=== PATIENT | female | born 1985 | race Caucasian/White ===

== ENCOUNTER 2024-12-28 15:08 | Outpatient (AMB) | payer OTHER, SELFPAY ==
--- OUTSIDE RECORDS SUMMARY | 2024-12-28 15:10 | XMS_ITS ---
[place] MED NUTRITION INDIV SUBSEQ [facility] Encounter Summary Created on: December 28, 2024 NAT STEPH LEE : 1985 Sex: Female Author Name [facility] [place] [facility] [place] Organization [facility] [place] [facility] [place] Address [address] [place] [address] Care Team Providers Care Bakery Team Leader Name Role Phone ARCENIO SUTHERLAND Primary Care Provider Unavail able Selected Encounter This section includes the information on record at [place] for the Encounter. Date/Time Encounter Type Encounter Description Reason Provider Source Sep 17, 2024 01:45 PM MED NUTRITION INDIV SUBSEQ NUTRITION/DIETETI CS-INDIVIDUAL ICD-10-CM R63.6 Underweight MICHELLEIVJAGPATR ASHERA A E Encounter Template Text not used by [place] Assessments - Encounter Diagnoses This section includes the primary and secondary diagnoses documented for the Encounter. Date/Time Primary/Secondary Diagnosis Diagnosis Name Provider Source Sep 17, 2024 02:21 PM PRIMARY Underweight MICHELLEIVIERDwightMARTINEZ EHSAN A [facility] Sep 17, 2024 02:21 PM SECONDARY Anorexia nervosa, restricting type, unspecified LARIVIERMARTINEZ QuintanillaIA A [facility] Sep 17, 2024 02:21 PM SECONDARY Body mass index [BMI] 19.9 or less, adult MICHELLEIVMARTINEZ RMIA A [facility] Sep 17, 2024 02:21 PM SECONDARY Dietary counseling and surveillance PORFIRIOBALTADwightMARTINEZ [facility] Plan of Treatment: Future Appointments (+ 6 months) and Future Tests (+/- 45 days) The Plan of Treatment section includes future care activities for the patient [facility] [place] [facility] This section includes future appointments and future orders which are active, pending or scheduled. Future Appointments This section includes appointments that were scheduled to occur 6 months from the date of the Encounter, up to a maximum of 20 appointments. The data comes from all [facility]. Appointment Date/Time Appointment Type Appointme nt Facility Name Oct 06, 2024 11:30 AM AMBULATORY - PSYCHIATRY [facility] Oct 21, 2024 11:30 AM AMBULATORY - NONE [facility] Oct 27, 2024 02:30 PM AMBULATORY - PSYCHIATRY [facility] Nov 10, 2024 01:30 PM AMBULATORY - PSYCHIATRY [facility] Nov 26, 2024 09:00 AM AMBULATORY - PSYCHIATRY [facility] Dec 03, 2024 01:00 PM AMBULATORY - PSYCHIATRY [facility] Dec 09, 2024 10:00 AM AMBULATORY - PSYCHIATRY [facility] Dec 11, 2024 11:00 AM AMBULATORY - PSYCHIATRY [facility] Dec 15, 2024 01:00 PM AMBULATORY - PSYCHIATRY [facility] Dec 22, 2024 03:00 PM AMBULATORY - PSYCHIATRY [facility] Jan 01, 2025 01:30 PM AMBULATORY - PSYCHIATRY [facility] Jan 07, 2025 01:00 PM AMBULATORY - PSYCHIATRY [facility] Feb 12, 2025 10:30 AM AMBULATORY - MEDICINE [facility] Active, Pending, and Scheduled Orders This section includes a listing of several types of active, pending, and scheduled orders, including clinic medications orders, diagnostic test orders, procedure orders and consult orders; where the start date of the order is 45 days before the date of the Encounter or 45 days after the date of theEncounter. The data comes from all [facility]. Test Date/Time Test Type Test Details Facility Name Aug 10, 2024 12:00 AM Laboratory - Chemi stry Order HEPATITIS B SURFACE ANTIBODY (HBsAb)- BLOOD (SST-SERUM) [facility] Aug 10, 2024 12:00 AM Laboratory - Chemi stry Order HEPATITIS C ANTIBODY (HCV)-ARC BLOOD (MARBLED-TOP SERUM) [facility] Aug 19, 2024 02:27 PM Consult Order [facility] Cons Physics Teacher's Choice [facility] Advance Directives: All historical and current Section Date Range: From patient's date of to the date document was created. This section includes ALL of a patient's completed or amended [place] Advance and Rescinded Directives. The entries below indicate that a directive exists for the patient, but an actual copy is not included with this document. The data comes from all [facility]. Date Advance Directives Provider Source Jul 02, 2024 ADVANCE DIRECTIVE DISCUSSION REYNALDO GRIMES [facility] Apr 14, 2014 ADVANCE DIRECTIVE DISCUSSION ESTELA FLORENCE [facility] Encounter Notes: All associated encounter notes This section contains the clinical notes associated to the Encounter. Date/Time Encounter Note(s) Provider Source Sep 17, 2024 08:16 AM NUTRITION DIETETICS NOTE: LOCAL TITLE: NUTRITION PROGRESS NOTE STANDARD TITLE: NUTRITION DIETETICS NOTE DATE OF NOTE: SEP 17, 2024@08:16 ENTRY DATE: SEP 17, 2024@08:16:57 AUTHOR: ADELINE BERG COSIGNER: URGENCY: STATUS: COMPLETED [facility] (VVC) Standard Documentation VVC Clinician Resources Only: E911 (Emergency Call Relay Center): [phone] National Veterans Crisis Line - [address] [facility] Suicide Coordinator [phone], Ext. [phone]; Back-up Ext. [phone] [facility] Police, Marlo PADILLA [phone] Introduction: Visit is being conducted by [place] [employer]. [place] identified with 2 identifiers: [X] Full Name [X] Date of [ ] [place] ID Card Emergency Plan: [place] confirmed and/or provided the following information in case of emergency or technology failure. PATIENT PHONE - PHONE NUMBER [CELLULAR] - Is patient phone number correct, if not, enter below: 's phone number: farhan JOHNS [address] [place], [place], [address] 's present location and address for appointment: [address] [place], [place], [address] [place]'s emergency contact name and phone number: JESS JOHNS Mother [place] reported that location is private and safe: Yes Informed Consent: informed of the risks and benefits of Telehealth video care. has the right to refuse video services. If refuses video visit, a [id number] visit will be scheduled. verbalized consent for this video visit: Yes [place] provided consent for any other persons present for visit: N/A If yes, who and relationship to patient: Secure visit: Visit was locked for security and privacy:Yes NUTRITION ASSESSMENT Follow up Reason for Nutrition referral: Low body weighthistory of anorexia, BMI no 18 Primary Diagnosis: Underweight (R63.6) Secondary Diagnosis: Dietary Surveillance and Counseling (Z71.3) Additional Secondary Diagnosis: Anorexia nervosa, restricting type, unspecified (ICD-10-CM F50.019) Body mass index [BMI] 19.9 or less, adult (ICD-10-CM Z68.1) Date of Nutrition Referral: 07/06/24 Referred to Nutrition Clinic By: Dr. Reyes Date of Nutrition Visit: Sep Visit #: 3 Time Spent with Patient: 25 minutes Patient identified using the following two forms of ID: Date of , Patient Full Name NUTRITION ASSESSMENT: Client History Food and Drug Interactions: None Anthropometric Measurements: === Ht:64 in [162.6 cm] (10/03/2018 13:09) Wt:104.2 lb [47.26 kg] (07/08/2024 10:50) Weight History: 104.2 = 07/08/24 106 = 07/02/24 105.6 = 06/18/24 111 = 11/19/22 BMI: 17.9 IBW: 120 +/-10% Biochemical Data/Medical Tests: ====== [X] No new labs available to assess Nutrition Focused Physical Findings: Appetite: Fair Other issues/concerns: None Reported Nutrition-Focused Physical Exam ====== Unable to perform nutrition-focused physical assessment Malnutrition Screening: Unable to assess all criteria at this time Nutrition-Focused Physical Exam Summary: Based on the ASPEN/AND Malnutrition Diagnosis Guide, it was determined that the [place] DOES NOT have malnutrition. Nutrition History: Food/Nutrition Related History: Progress since last visit: Going pretty OK, still tries to bring snack if outside of home. No real changes in diet except working on goals. Prior goals: 1. ENSURE PLUS- try 4oz in afternoon and 4oz in the evening-MET, DRINKING 1 CONTAINER PER DAY, SIPS THROUGHOUT THE DAY OR BREAKS UP INTO 2 (4OZ) SERVINGS 2. Add 1/4c cottage cheese to breakfast-MET In the past 3 months, did you ever run out of food and you were not able to access more food or have the money to buy more food? No Physical Activity: Not discussed today Other subjective information: Unemployed, looking for job. Finds it easier to eat when at home due to access of food she finds works for her. She shared today that she would like to gain a little weight. NUTRITION DIAGNOSIS Nutrition Problem: ACTIVE Underweight related to inadequate energy intake as evidenced by BMI<18.5 INTERVENTION Update on Interventions Discussed at Previous Visit: Has met both goals discussed last visit for drinking 8oz ENSURE PLUS per day and adding small portion of cottage cheese to breakfast. NUTRITION SUPPLEMENT THERAPY Commercial beverage medical food supplement therapy Food and/or Nutrient Delivery: Recommend to continue Oral Nutritional Supplement as follows: Product:ENSURE PLUS (chocolate flavor per patient) Dosage:2(8oz)containers daily Provides: 700 calories, 26g protein, 102g carbohydrate, and 22g fat NUTRITION COUNSELING Nutrition counseling based on motivational interviewing strategy , Nutrition counseling based on goal setting strategy NUTRITION EDUCATION Content related to nutrition education, Education on nutrition's influence on health Nutrition Education provided on the following topics: Healthy Weight Gain Strategies , Potential Benefits of Weight Gain, Oral medical nutritional supplement recommendation (formula, dosage) Printed Nutrition educational materials provided during this encounter: None Education Narrative: Reviewed progress with meeting goals since last visit. Explored additional adjustments in eating habits to increase calories, protein, and nutrients. Reinforced how adequate nutrition influences her ability to achieve her prior stated goal to be strong and build strength. Patient identified adjustments she will work on(goals below). Barriers to Education: None Comprehension: Good Motivation: Good ========= COORDINATION OF NUTRITION CARE Follow-up with: [facility], PCP MONITORING Patient SMART goals from previous visit: 1. ENSURE PLUS- try 4oz in afternoon and 4oz in the evening-Goal achieved 2. Add 1/4c cottage cheese to breakfast-Goal achieved New Patient SMART Goals: 1. Supper: Drizzle olive oil on vegetables or mix them with cottage cheese 2. Supper: Add sour cream (her idea)or plain irish yogurt to potato 3. Lunch: Spread hummus on tortilla wrap sandwich you eat 4. Continue ENSURE PLUS at least 8oz daily FOLLOW-UP PLAN 1. Follow-up visit: Oct 2. Monitor progress towards achievement of patient's SMART goals 3. Assess comprehension and motivation based on dietary changes made 4. Monitor progress toward achievement of Clinical Outcome Goals: Weight, Labs, Oral Intake CLINICAL OUTCOME GOALS: Indicator: Weight Criteria: Underweight per BMI Goal: Weight gain of 1#/week toward IBW by follow-up Progress: No new weight, continue goal [facility] [place] [place], ASPIRATION, PURPOSE, VALUES, AND SHARED GOALS Shared Goal(s): see patient goals above (Focus area honoring MAP & Team priorities) /carole/ ADELINE BERG RD,BETZYN STAFF DIETITIAN Signed: 09/19/2024 11:10 ADELINE BERG [facility]
--- OUTSIDE RECORDS SUMMARY | 2024-12-28 15:10 | XMS_ITS | Encounter Summary ---
Author Name [facility] [place] [facility] [place] Organization [place] Address [address] [place] [address] Care Team Providers Care Golf Professional Name Role Phone ARCENIO SUTHERLAND Primary Care Provider Unavail able Selected Encounter This section includes the information on record at [place] for the Encounter. Date/Time Encounter Type Encounter Description Reason Pro vider Source Dec 25, 2024 03:12 PM Outpatient Encounter [facility]AL [facility] Encounter Template Text not used by [place] Plan of Treatment: Future Appointments (+ 6 months) and Future Tests (+/- 45 days) The Plan of Treatment section includes future care activities for the patient from all [place] treatmentfacilities. This section includes future appointments and future orders which are active, pending or scheduled. Future Appointments This section includes appointments that were scheduled to occur 6 months from the date of the Encounter, up to a maximum of 20 appointments. The data comes from all [place] treatment facilities. Appointment Date/Time Appointment Type Appointme nt Facility Name Jan 01, 2025 01:30 PM AMBULATORY - PSYCHIATRY [facility] Jan 07, 2025 01:00 PM AMBULATORY - PSYCHIATRY [facility] Feb 12, 2025 10:30 AM [facility] Active, Pending, and Scheduled Orders This section includes a listing of several types of active, pending, and scheduled orders, including clinic medications orders, diagnostic test orders, procedure orders and consult orders; where the start date of the order is 45 days before the date of the Encounter or 45 days after the date of theEncounter. The data comes from all [place] treatment facilities. Test Date/Time Test Type Test Details Facility Name Dec 11, 2024 11:[address] [facility] Assembler Liquid Center's Choice [facility] Advance Directives: All historical and current Section Date Range: From patient's date of to the date document was created. This section includes ALL of a patient's completed or amended [place] Advance and Rescinded Directives. The entries below indicate that a directive exists for the patient, but an actual copy is not included with this document. The data comes from all [place] facilities. Date Advance Directives Provider Source Jul 02, 2024 ADVANCE DIRECTIVE DISCUSSION REYNALDO GRIMES [facility] Apr 14, 2014 ADVANCE DIRECTIVE DISCUSSION ESTELA FLORENCE [facility] Encounter Notes: All associated encounter notes This section contains the clinical notes associated to the Encounter. Date/Time Encounter Note(s) Provider Source Dec 25, 2024 03:12 PM ADMINISTRATIVE NOTE: LOCAL TITLE: ADMINISTRATIVE NOTE STANDARD TITLE: ADMINISTRATIVE NOTE DATE OF NOTE: DEC 25, 2024@15:12 ENTRY DATE: DEC 25, 2024@15:12:23 AUTHOR: LEESA ROBERTS EXP COSIGNER: URGENCY: STATUS: COMPLETED called [facility] outpatient clinic and left VM. [place] stated she is feeling the most anxious she's ever felt and has a question about her lorazepam. Sent message to Mere Rowan RN via [email or web address]. Please call back at [phone], thank you. /carole/ LEESA ROBERTS ADVANCED CLOTH FINISHING RANGE TENDER Signed: 12/25/2024 15:15 Receipt Acknowledged By: * AWAITING SIGNATURE * MERE ROWAN * AWAITING SIGNATURE * IRENE CHEUNG ERICA MICHELLE [facility]
--- OUTSIDE RECORDS SUMMARY | 2024-12-28 15:10 | XMS_ITS | Encounter Summary ---
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 Date/Time Encounter Type Encounter Description Reason Provider Source Jun 29, 2024 01:00 PM [facility] ICD-10-CM F42.9 Obsessive-compul sive disorder, unspecified EDU ESPINOZA Encounter Template Text not used by [place] Assessments - Encounter Diagnoses This section includes the primary and secondary diagnoses documented for the Encounter. Date/Time Primary/Secondary Diagnosis Diagnosis Name Provider Source Jun 29, 2024 01:00 PM PRIMARY Obsessive-compuls medhat disorder, unspecified ELENA SANTO A [facility] Jun 29, 2024 01:00 PM SECONDARY Anorexia nervosa, restricting type ELENA SANTO A [facility] Jun 29, 2024 01:00 PM SECONDARY Major depressive disorder, recurrent, in remission, unsp ELENA SANTO A [facility] Plan of Treatment: Future Appointments (+ 6 months) and Future Tests (+/- 45 days) The Plan of Treatment section includes future care activities for the patient from all [place] treatmentfacilities. This section includes future appointments and future orders which are active, pending or scheduled. Future Appointments This section includes appointments that were scheduled to occur 6 months from the date of the Encounter, up to a maximum of 20 appointments. The data comes from all [place] treatment facilities. Appointment Date/Time Appointment Type Appointme nt Facility Name Jul 06, 2024 01:30 PM AM[facility]ULATORY [facility] [place] [facility] Jul 08, 2024 10:00 AM AMBUL[facility] [place] [facility] Jul 08, 2024 10:30 AM AMBULATORY - MEDICINE [facility] Jul 09, 2024 01:00 PM AMBULATORY [facility] [place] [facility] Jul 10, 2024 10:00 AM AM[facility]ULATORY [place] Jul 14, 2024 10:30 AM AMBULATORY - PSYCHIATRY [facility] Jul 17, 2024 09:00 AM AMBULATORY [facility] [place] [facility] Jul 17, 2024 10:00 AM AM[facility]UL[facility]ORY [place] Jul 23, 2024 09:30 AM AM[facility]UL[facility] [place] [facility] Jul 24, 2024 10:00 AM AMBULATORY [place] Jul 24, 2024 10:45 AM [facility] Jul 27, 2024 02:00 PM AM[facility]UL[facility] [place] [facility] Aug 05, 2024 01:00 PM AMBULATORY [facility] [place] [facility] Aug 07, 2024 10:00 AM AM[facility]UL[facility]ORY [place] [facility] [place] Aug 11, 2024 07:30 PM AMBULATORY [facility] [place] [facility] Aug 12, 2024 01:00 PM AMBULATORY [facility] [place] [facility] Aug 14, 2024 10:00 AM AM[facility]ULATORY [place] Aug 19, 2024 01:00 PM AMBULATORY [facility] [place] [facility] Aug 20, 2024 09:15 AM AMBULATORY - NONE [facility] [place] [facility] Aug 21, 2024 03:00 PM AMBULATORY [facility]ICINE [facility] [place] [facility] Active, Pending, and Scheduled Orders This section includes a listing of several types of active, pending, and scheduled orders, including clinic medications orders, diagnostic test orders, procedure orders and consult orders; where the start date of the order is 45 days before the date of the Encounter or 45 days after the date of theEncounter. The data comes from all [place] treatment facilities. Test Date/Time Test Type Test Details Facility Name Aug 10, 2024 12:00 AM Laboratory - Chemi [employer] Order HEPATITIS B SURFACE ANTIBODY (HBsAb)- BLOOD (SST-SERUM) [facility] Aug 10, 2024 12:00 AM Laboratory - Chemi strEmissary Order HEPATITIS C ANTIBODY (HCV)-[facility] BLOOD (MARBLED-TOP SERUM) [facility] Lab Results: +/- 30 days of the encounter This section includes the Chemistry and Hematology Lab Results on record with [place] for the patient. Radiology Reports and Pathology Reports are provided separately, in subsequent sections. Lab Results This section contains the Chemistry/Hematology Results that were resulted 30 days before or 30 daysafter the date of the Encounter. Date/Time Source Result Type Result - Unit Interpretation Reference Range Comment Jul 03, 2024 11:00 AM [place] [facility] [employer] [facility] COVID-19 SCREENING PANEL (CEPHEID) Specimen Type: NASOPHARYNX Comment: This test is authorized for emergency use only. False negative results may occur if virus is present at levels below the analytical limit of detection.Neg ative results do not preclude SARS-CoV-2 infection and should not be used as the sole basis for treatment or other patient management decisions.Cep heid FLUVID: HCPs: https://www. da.gov/media/ 524725/downlo ad. Patients: https://www.f da.gov/media/ 442854/downlo ad Ordering Provider: DELMA SHAH Report Released Date/Time: Jul 03, 2024 12:29 PM Reporting Lab: [facility] [address] [facility] [address] Performing Lab: [facility] [address] [facility] [address] COVID-19 SCR (CEPHEID) NEGATIVE Negative Jun 22, 2024 08:19 AM [place] [facility]N [employer] [facility] HCG QUAL, URINE Specimen Type: URINE No comment entered. Ordering Provider: MIGUELANGEL MAHONEY Report Released Date/Time: Jun 22, 2024 08:18 AM Reporting Lab: [address] [address] Performing Lab: [address] [address] HCG QUAL, URINE NEGATIVE NEGATIVE Jun 22, 2024 07:03 AM [facility] HEMOGLOBIN A1C PANEL Specimen Type: BLOOD Comment: Values obtained from A1C measurements can vary. For atypical A1C assays, a reported value of 7.0 could actually be between 6.72 and 7.28 if measured by a reference method. A reported value of 9.0 could actually be between 8.73 and 9.27. Ref: http://www.ng sp.org/CAPdat a.asp Ordering Provider: MIGUELANGEL MAHONEY Report Released Date/Time: Jun 19, 2024 11:44 AM Reporting Lab: [address] [address] Performing Lab: [address] [address] HEMOGLOBIN A1C 5.0 4.0-5.6 Jun 22, 2024 07:03 AM [facility] LIPID PANEL FASTING Specimen Type: SERUM No comment entered. Ordering Provider: MIGUELANGEL MAHONEY Report Released Date/Time: Jun 19, 2024 11:44 AM Reporting Lab: [address] [address] Performing Lab: [address] [address] CHOLESTEROL 218 mg/dL H TRIGLYCERIDE 81 mg/dL 0-150 LDL calculated 142 mg/dL H 0-129 CHOL/HDL 3.6 HDL CHOLESTEROL 60 mg/dL 40-60 Jun 22, 2024 07:00 AM [facility] CALCIUM Specimen Type: SERUM No comment entered. Ordering Provider: MIGUELANGEL MAHONEY Report Released Date/Time: Jun 22, 2024 08:24 AM Reporting Lab: [address] [address] Performing Lab: [facility] [address] [facility] [address] CALCIUM 9.6 mg/dL 8.5-10.2 Jun 22, 2024 07:00 AM [facility] BASIC METABOLIC PANEL (non-fasting) Specimen Type: SERUM No comment entered. Ordering Provider: MIGUELANGEL MAHONEY Report Released Date/Time: Jun 22, 2024 02:03 PM Reporting Lab: [facility] [address] [facility] [address] Performing Lab: [facility] [address] [address] UREA NITROGEN 19 mg/dL 7-25 GLUCOSE 109 mg/dL H 65-100 SODIUM 139 mmol/L 135-145 POTASSIUM 4.5 mmol/L 3.5-5.0 CHLORIDE 104 mmol/L 100-110 CO2 24 meq/L 20-30 CREATININE, Serum 0.89 mg/dL 0.50-1.40 eGFR(CKD-EPI 2020) 85 mL/min >60 Jun 18, 2024 03:08 PM [facility] COVID-19 MONITOR PANEL (CEPHEID) Specimen Type: NASOPHARYNX Comment: This test is authorized for emergency use only. False negative results may occur if virus is present at levels below the analytical limit of detection.Neg ative results do not preclude SARS-CoV-2 infection and should not be used as the sole basis for treatment or other patient management decisions.Cep heid FLUVID: HCPs: https://www. da.gov/media/ 913821/downlo ad. Patients: https://www. da.gov/media/ 907461/downlo ad Ordering Provider: DELMA SHAH Report Released Date/Time: Jun 18, 2024 03:05 PM Reporting Lab: [facility] [address] [facility] [address] Performing Lab: [address] [address] COVID-19 CITLALLI (CEPHEID) NEGATIVE Negative Jun 18, 2024 02:41 PM [facility] ETHANOL Specimen Type: PLASMA No comment entered. Ordering Provider: DELMA SHAH Report Released Date/Time: Jun 18, 2024 02:30 PM Reporting Lab: [address] [address] Performing Lab: [address] [address] ETHANOL <10 mg/dL Jun 18, 2024 02:41 PM [facility] BASIC METABOLIC PANEL (non-fasting) Specimen Type: SERUM No comment entered. Ordering Provider: DELMA SHAH Report Released Date/Time: Jun 18, 2024 02:30 PM Reporting Lab: [address] [address] Performing Lab: [address] [address] UREA NITROGEN 18 mg/dL 7-25 GLUCOSE 110 mg/dL H 65-100 SODIUM 137 mmol/L 135-145 POTASSIUM 3.9 mmol/L 3.5-5.0 CHLORIDE 103 mmol/L 100-110 CO2 29 meq/L 20-30 CREATININE, Serum 0.84 mg/dL 0.50-1.40 eGFR(CKD-EPI 2020) >90 mL/min >60 Jun 18, 2024 02:41 PM [facility] LIVER FUNCTION Specimen Type: SERUM No comment entered. Ordering Provider: DELMA SHAH Report Released Date/Time: Jun 18, 2024 02:30 PM Reporting Lab: [address] [address] Performing Lab: [address] [address] PROTEIN,TOTAL 7.1 g/dL 6.0-8.3 ALBUMIN 4.2 g/dL 3.5-5.0 ALKALINE PHOSPHATASE 46 U/L 40-150 AST 10 U/L 5-34 ALT 11 U/L BILIRUBIN, TOTAL 0.3 mg/dL 0.2-1.2 Jun 18, 2024 02:41 PM [facility] CBC AND DIFF (AUTO) Specimen Type: BLOOD No comment entered. Ordering Provider: DELMA SHAH Report Released Date/Time: Jun 18, 2024 02:30 PM Reporting Lab: [facility] [address] [facility] [address] Performing Lab: [facility] [address] [facility] [address] WBC 7.32 10*3/uL 4.50-11.00 RBC 4.08 10*6/uL 3.93-5.16 HGB 13.3 g/dL 12-15.2 HCT 39.1 36.6-45.6 MCV 95.8 fL 82-99 MCHC 34.0 g/dL 30.8-35.1 PLT 296 10*3/uL 140-360 RDW-CV 11.8 L 12.0-16.0 MONO, ABS 0.36 10*3/uL 0.30-1.10 MCH 32.6 pg 26.2-32.6 NEUT % 69.8 43.7-75.8 LYMPH % 24.0 14.0-42.3 MONO % 4.9 L 5.1-13.7 EOS % 0.4 0.4-6.8 BASO % 0.8 0.1-2.0 NEUT, ABS 5.10 10*3/uL 2.20-7.60 LYMPH, ABS 1.76 10*3/uL 1.00-3.20 EOS, ABS 0.03 10*3/uL 0.03-0.44 BASO, ABS 0.06 10*3/uL 0.01-0.13 IMMATURE GRAN % 0.1 0.0-0.7 IMMATURE GRAN, ABS 0.01 10*3/uL 0.00-0.06 NRBC % 0.0 0.0-0.0 NRBC, ABS 0.00 10*3/uL 0.00-0.00 Jun 18, 2024 02:41 PM [facility] DRUGS OF ABUSE Specimen Type: URINE Comment: Urine with Cr <5 is diluted or substituted. Cr between 5 and 20 is very dilute. Urine with SG of 1.001 or less is diluted or substituted. SG of 1.003 or less is very dilute. Urine with a pH <3 or >11 has been adulterated and is unsuitable for testing by our current method. Urine with pH between 3 and 4 OR 10 and 11 may have been adulterated. Ordering Provider: DELMA SHAH Report Released Date/Time: Jun 18, 2024 02:30 PM Reporting Lab: [facility] [address] [facility] [address] Performing Lab: [address] [address] AMPHETAMINES SCREEN NONE-DETECTED None-Detec domo, Cutoff = 1000 ng/mL BENZODIAZEPINES SCREEN NONE-DETECTED None-Detec domo, Cutoff = 200 ng/mL COCAINE SCREEN NONE-DETECTED N one-Detec domo,Cutoff = 300 ng/mL OPIATES SCREEN NONE-DETECTED N one-Detec domo, Cutoff = 300 ng/mL CANNABINOIDS SCREEN NONE-DETECTED None-Detec domo,Cutoff = 50 ng/mL BARBITURATES SCREEN NONE-DETECTED None-Detec domo,Cutoff = 200 ng/mL OXYCODONE SCREEN NONE-DETECTED None-Detec domo, Cutoff = 100 ng/mL BUPRENORPHINE (URINE) NONE-DETECTED None Detected, Cutoff = 10.0 ng/mL ALCOHOL, ETHYL URINE NONE-DETECTED mg/dL NONE-DETEC ODMO, cutoff = 10 mg/dL FENTANYL SCREEN NONE-DETECTE D ng/mL Negative: Cutoff = 1.00 ng/mL PH, DONAVAN 6.8 [pH] 4-10 CREATININE, DONAVAN 92.76 mg/dL >20 SP.GRAVITY, DONAVAN 1.019 1.00 3-1.02 0 Jun 18, 2024 02:41 PM [facility] FOLATE (WROX) Specimen Type: SERUM Comment: Specimen Icteric Ordering Provider: MIGUELANGEL MAHONEY Report Released Date/Time: Jun 19, 2024 12:16 PM Reporting Lab: [facility] [address] [facility] [address] Performing Lab: [facility] [address] [facility] [address] FOLATE (WROX) 15.03 ng/mL >5.2 Jun 18, 2024 02:41 PM [facility] VITAMIN B12 Specimen Type: SERUM No comment entered. Ordering Provider: MIGUELANGEL MAHONEY Report Released Date/Time: Jun 19, 2024 12:16 PM Reporting Lab: [facility] [address] [facility] [address] Performing Lab: [facility] [address] [address] VITAMIN B12 1281 pg/mL H 200-900 Jun 18, 2024 02:41 PM [facility] TSH Specimen Type: SERUM No comment entered. Ordering Provider: MIGUELANGEL MAHONEY Report Released Date/Time: Jun 19, 2024 12:16 PM Reporting Lab: [address] [address] Performing Lab: [facility] [address] [address] TSH 3.52 u[IU]/mL 0.35-5.00 Jun 18, 2024 02:41 PM [facility] VITAMIN D (25-OH) Specimen Type: SERUM No comment entered. Ordering Provider: MIGUELANGEL MAHONEY Report Released Date/Time: Jun 19, 2024 12:16 PM Reporting Lab: [facility] [address] [address] Performing Lab: [facility] [address] [address] VITAMIN D (25-OH) 52 ng/mL H 20-50 Vital Signs: All taken on the encounter date This section contains inpatient and outpatient Vital Signs collected on the date of the Encounter. Date/Time Temperature Pulse Blood Pressure Respiratory Rate SP02 Pain Height Weight Body Mass Index Source Jun 29, 2024 07:46 PM 97.2 70 103/65 16 100 [facility] [place] [facility] Jun 29, 2024 02:29 PM 97.1 97 99/69 16 99 [facility] [place] [facility] Jun 29, 2024 06:34 AM 97.9 [place] [facility] [facility] Advance Directives: All historical and current Section Date Range: From patient's date of to the date document was created. This section includes ALL of a patient's completed or amended [place] Advance and Rescinded Directives. The entries below indicate that a directive exists for the patient, but an actual copy is not included with this document. The data comes from all [place] facilities. Date Advance Directives Provider Source Jul 02, 2024 ADVANCE DIRECTIVE DISCUSSION REYNALDO GRIMES [place] [facility] [place] [facility] Apr 14, 2014 ADVANCE DIRECTIVE DISCUSSION EST[facility]A [facility]
--- OUTSIDE RECORDS SUMMARY | 2024-12-28 15:10 | XMS_ITS | Encounter Summary ---
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 Date/Time Encounter Type Encounter Description Reason Provider Source Nov 10, 2024 01:30 PM OFFICE O/P EST LOW 20 MIN [facility] - IND ICD-10-CM F33.40 Major depressive disorder, recurrent, in remission, IRENE Gupta Dwight Encounter Template Text not used by [place] Assessments - Encounter Diagnoses This section includes the primary and secondary diagnoses documented for the Encounter. Date/Time Primary/Secondary Diagnosis Diagnosis Name Provider Source Nov 10, 2024 01:54 PM PRIMARY Major depressive disorder, recurrent, in remission, IRENE Gupta Nov 10, 2024 01:54 PM SECONDARY Anxiety disorder, unspecified IRENE CHEUNG Nov 10, 2024 01:54 PM SECONDARY Generalized anxiety disorder IRENE CHEUNG Plan of Treatment: Future Appointments (+ 6 months) and Future Tests (+/- 45 days) The Plan of Treatment section includes future care activities for the patient from all [facility] treatmentfacilities. This section includes future appointments and future orders which are active, pending or scheduled. Future Appointments This section includes appointments that were scheduled to occur 6 months from the date of the Encounter, up to a maximum of 20 appointments. The data comes from all [place] treatment facilities. Appointment Date/Time Appointment Type Appointme nt Facility Name Nov 26, 2024 09:00 AM AMBULATORY - PSYCHIATRY [facility] Dec 03, 2024 01:[address] [facility] Dec 09, 2024 10:00 AM AMBULATORY PSYCHIATRY [facility] Dec 10, 2024 03:00 PM AMBULATORY PSYCHIATRY [facility] Social History: Smoking Status (Most current) and Tobacco Use (All prior to encounter date) This section includes the most current, and the historical, smoking and tobacco- related health factors from the [place] facility where the Encounter took place. Current Smoking Status This section includes the most current smoking, or tobacco-related health factor, from the [place] facility where the Encounter took place. Date/Time Current Smoking Status Comment [facility] Feb 07, 2024 04:00 PM [place]-TOBACCO NEVER USED [facility] Tobacco Use History This section includes a history of the smoking, or tobacco-related health factors, that were collected on or before the date of the Encounter. The data comes from the [place] facility where the Encounter took place. Date/Time Smoking Status/Tobacco Use Comment F acility Nov 19, 2022 01:30 PM [place]-TOBACCO NEVER USED [facility] Oct 03, 2021 10:00 AM [place]-TOBACCO NEVER USED [facility] Nov 01, 2020 11:00 AM [place]-TOBACCO NEVER USED [facility] Oct 03, 2018 01:10 PM [place]-TOBACCO NEVER USED [facility] Apr 19, 2017 02:22 PM LIFETIME NON-TOBACCO USER [facility] Jan 03, 2016 02:36 PM LIFETIME NON-TOBACCO USER [facility] Feb 10, 2013 03:39 PM LIFETIME NON-TOBACCO USER [facility] Advance Directives: All historical and current Section Date Range: From patient's date of to the date document was created. This section includes ALL of a patient's completed or amended [place] Advance and Rescinded Directives. The entries below indicate that a directive exists for the patient, but an actual copy is not included with this document. The data comes from all [place] facilities. Date Advance Directives Provider Source Jul 02, 2024 ADVANCE DIRECTIVE DISCUSSION REYNALDO GRIMES [facility] Apr 14, 2014 ADVANCE DIRECTIVE DISCUSSION ESTELA FLORENCE [facility] Encounter Notes: All associated encounter notes This section contains the clinical notes associated to the Encounter. Date/Time Encounter Note(s) Provider Source Nov 10, 2024 01:31 PM TELEHEALTH NOTE: LOCAL TITLE: [facility] VIDEO CONNECT PSYCHIATRIST NOTE STANDARD TITLE: TELEHEALTH NOTE DATE OF NOTE: NOV 10, 2024@13:31 ENTRY DATE: NOV 10, 2024@13:31:57 AUTHOR: IRENE CHEUNG COSIGNER: URGENCY: STATUS: COMPLETED [facility] Video Connect (VVC) Standard Documentation VVC Clinician Resources Only: E911 (Emergency Call Relay Center): [phone] [facility] Crisis Line - 988 then press #1. [facility] Suicide Coordinator [phone], Ext. [phone]; Back-up Ext. [phone] [place] Police, Marlo PADILLA [phone] Introduction: Visit is being conducted by [place] [employer]. identified with 2 identifiers: [X] Full Name [X] Date of [ ] [place] ID Card Emergency Plan: confirmed and/or provided the following information in case of emergency or technology failure. PATIENT PHONE - PHONE NUMBER [CELLULAR] - Is patient phone number correct, if not, enter below: 's phone number: STEPH JOHNS [address], [place], [address] [place]'s present location and address for appointment: same as above 's emergency contact name and phone number: unchanged reported that location is private and safe: Yes Informed Consent: informed of the risks and benefits of Telehealth video care. [place] has the right to refuse video services. If refuses video visit, a [id number] visit will be scheduled. [place] verbalized consent for this video visit: Yes provided consent for any other persons present for visit: N/A If yes, who and relationship to patient: Secure visit: Visit was locked for security and privacy:Yes CHART REVIEW: Previously treated by Dr. Hackett, initial evaluation [age] notin-year-old [employer] who was medically discharged from in 2 years and 11 months. She presented well dressed and groomed today for her appointment. She was polite, collaborator and engaged. She says that I am still recovering from my condition and well coming new opportunities to cope She elaborates on her severe level of anxiety which she experienced as a child because her father was alcoholic, with anger issues and verbally abusive. Her anxiety further worsened when she was in and discussed the time when she started restricting her food intake and was exercising excessively. She was sent to an inpatient residential treatment for eating disorders while she was in the . She was there for few months and gained insight and coping for it. She says that she was not ready for discharge when the wanted her back so she left the program but ultimately ended up discharging from for medical reasons. She has been on venlafaxine for many years and has not seen a psychiatrist. She says that now her weight and basal metabolic index are close to normal but towards the lower end. She says that she no longer restricts and exercises 5 days a week. She does not weigh herself. She describes her mood for past 2 weeks to be anxious and melancholy her sleep has been reasonable where she sleeps about 8 hours a night her appetite, energy levels, concentrations are described as decent and she denies any SI/HI. She says that occasionally she may have thoughts that why she is here, But they are passive and resolved by distraction. She has no prior suicide attempts. She denies any guns or weapons at home. She denies any illicit drug or alcohol use. She has been drinking up to 10 cups of coffee per day. 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 Return denies any prior incidence of psychosis, beto or hypomania, symptoms of any phobia. She denied any screening questions of PTSD. She still has ruminative thoughts about her past especially her father's behavior that affected the family but denies any compulsive behaviors. SUBSTANCE ABUSE: Caffeine: 6 to 8 cups a day Tobacco: Never Cocaine: Denies Opioid: Denies Alcohol: Drinks twice a year, no more than 1-2 drinks on drinking days Cannabis: None Past Psych History: - Prior Diagnosis: Generalized anxiety disorder, history of anorexia currently stable - Current Psychiatrist: Long back: - Prior Hospitalizations: Denies - Prior Medications: Venlafaxine, lorazepam, zolpidem - Prior Suicide Attempts: Denies -Guns and Weapons at home: Denies Family Psychiatric History: - Psych: Anxiety runs in the family, also bulimia. - Substance USe: Father was alcoholic - Suicide: Denies TREATMENT PLAN/ DISCUSSION/ RATIONALE: DIAGNOSIS: 36-year-old force who was discharged from medically because of her eating disorder and severe anxiety. has received treatment at the residential eating disorder treatment program and has been on venlafaxine for a very long time. The goal of this assessment was to reevaluate her medicines. tried alpha stim with significant improvement in her anxiety and today she presents ambivalent about her goals with the medicines. She feels that if she is able to manage her anxiety better she would want to gradually taper off of venlafaxine. She agrees to give alpha stim more time. Plan: Generalized anxiety disorder: Continue venlafaxine at same dose. Continue to use alpha stim LAST SEEN BY DR HACKETT SEPT2021, noting: She tells the specification writer that she has been seeing a therapist couple times a month who suggested to speak to her father about the emotional neglect that she experienced as a child. She says that she had a little dip in her moods and anxiety when she spoke to him. He is in complete denial and does not want to work with her in therapy. This was little upsetting to the [place]. She says that she had few nightmares for couple days but those have resolved. She finds the medications and alpha stim very useful. She describes her moods, sleep, motivation, energy levels and concentrations as reasonable. She is continues to function adequately. She clearly denies any SI/HI. She denies any illicit drug or alcohol use? Plan: Continue venlafaxine without any changes PRESENTATION AT TIME OF INITIAL VISIT WITH MYSELF 10/25/23: reports the [place] wanted me to continue to seeing someone periodically b/c I'm on a certain medication . She just moved to [place] March 1st (been traveling back and forth to [place] but just got a house there). 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 Uses alpha stim daily (occasionally BID), sees a therapist every week (in [place]) remotely. Continues on Effexor I know its helped with anxiety, after I started it I felt the anxiety ease some, but I've continued to have issues with anxiety . REVIEW OF SYSTEMS MENTAL HEALTH: SLEEP: good MOOD: depression occurs around once a year a couple to several days , earlier this year after interpersonal rift for several weeks still functioned but struggled as crying interrupted her work day, sometimes took the day moment to moment PTSD symptoms: difficulties with my father, neglect on his part, tendencies of him to be angry. I picture him and my heart hurts , not flashbacks, sometimes dreams occasionally awakens screaming when home in [place] ANXIETY: I've felt at peace recently , may occur typically a couple of times/week minor to major depending on what's going on , for a while was daily during a period of conflict my mind feels raw, out of control, its in my head (not physical), a pain raw and vulnerable, whirring thoughts, ruminating, what could be happening (a situation) I fixate on it ANGER/IRRITABILITY/AGGRESSION: Denies SUBSTANCE USE: Alcohol: rare Illegal/non-prescribed drugs: denies TOBACCO: Non-smoker EATING: I'm much better . Current weight 112 lbs (not changed), ht 5'3 Restriction: very selective in what I eat , not caloric intake Weight/ image focus: a little bit Binge/purge behavior: denies, no hx Exercise: 1 hour daily BETO/HYPOMANIA: None evident PSYCHOTIC FEATURES: at my sickest, dark one, a flash of self-harm, it felt very vivid. One time it was driving my car off the road, a few times it was slamming my head against a mirror not in several years (at least 9 years) Suicidal Thoughts/Intent/plan: during most recent depressive episode states this time I didn't want to be here anymore, I was just going through the motions and all I wanted to do was be with God , denies having a plan or intent that would be selfish and painful . History: several years ago thoughts of running car off the road weighed strongly on my mind but I couldn't do that . RFL: you have to be here b/c you're alive, you go through motions. I don't have a choice in the matter. I have a moral issue with suicide? here for people and community, and I have a strong kevin and spirituality at the center of my life . Medical ROS: no c/o; not sexually active/ no BC CURRENT PSYCH meds: PHILLY 150mg daily ADVERSE EFFECTS: none reported INITIAL ASSESSMENT/ DIAGNOSIS AND RECOMMENDATIONS: Tatiana presents with a history of recurrent depression, possible PTSD, 50%SC for anxiety disorder though does not seem to meet criteria for VENKAT, and an eating disorder (30%SC for anorexia nervosa, does not currently meet criteria). She experiences some improvement with Effexor, though continues to experience both depression with SI and anxiety despite being on 150mg daily. I encouraged her to increase the dose to 225mg daily which she agreed to. Asked to monitor her BP on this. I noted 01/15/24: Returned call from Tatiana, reports the dose increase helped a little, but its too much. I'm crying everyday, some days its very intense , under work stress. Talks to a therapist weekly. Feeling isolated, talking to man in [facility] dreading it and i'm afraid, but i'm lonely . C/o I want to be with God but denies plan to end her life but at times hopes something would happen to her to end her life. When i suggest she is not ready for a new relationship, she states she feels relief. Her parents visited recently but at the end father had an episode, anger. He's not the best father , so doesnt feel comfortable going back home now. Misses her mother and talks to her frequently. Her closest friend there is less available as she goes through her own troubles. She is able to work and function daily. PLAN: will add low dose abilify and suggested she talk to her therapist about options for increased therapy including IOP. Not at acute risk of self harm. Affect improved by end of call, responded well to support. NEXT VISIT: increased PHILLY to 300mg daily and abilify to 5mg daily. NEXT VISIT NOTED: reports I'm preparing the move back home to [place], I need to be with them right now, for my peace of mind, and my father just had a 2nd bout with cancer and my mother is having MRIs, tests are inconclusive but she is cancer free. My job was just miserable. I want to leave right away. I've packed up most of the house. States I know the medicine is making a difference. There's a little more stability. NOTED AT LAST OP VISIT: Tatiana presents with her mom. She reports her recent state has been similar but worse. I feel like an anxious mess. I'm shaking. I've been talking to my therapist weekly. Last weekend he suggested I talk to you about reevaluating my medication or a Partial Hospitalization . Mother states Tatiana was calling her frequently from [place], and since being home doesn't know where she was worse, there or here. States there's nothing that will make her joyful at all. She barely enters conversation at all. She sits and rocks or is pacing. Positive things don't stick. Its almost like she was before she was on medication years ago . States she thinks the abilify might have made a difference . Reports she feels terrified of going into a hospital setting b/c of the need to be in the hospital. The downtime on a unit when I'm with others who might be worse off. Will I lose weight . She was admitted to the hospital Jun 18, Noted by Dr. Barrera 07/02: Currently on venlafaxine 300 mg daily, mirtazapine 15 mg at bedtime, brexpiprazole 0.5 mg daily, lorazepam as needed which she uses once daily. The patient is comfortable on these medications and denies adverse effects. The patient states that she slept well without nightmares last night. She still feels fatigued but is not sedated. She remains with anxiety about discharge and ambivalent feelings concerning leaving the hospital. She worries about going home and being confronted by the necessity of pursuing employment, at the same time feels reluctant to stay in the hospital. She feels that she is worried about facing the future. She is trying to minimize Ativan use. She has residual depressed mood, although not to the severity seen earlier in her admission and without the pronounced diurnal variation initially observed. She is not helpless or hopeless although at times she does not feel equal to the developmental tasks of autonomy. Discussed with the patient that not everything needs to be done immediately, that resources will be available to help her, that returning to the world of work may be a more gradual process. Have discussed balancing her fear of more negative outcomes with acknowledgment of the at least equally valid possibility of positive events. The patient denies passive or active SI. She denies HI/intent. She is without euphoria, irritability, pressured speech, flight of ideas, grandiosity or expansiveness. The patient denies AH or VH and does not respond to internal stimuli, is without formed PI or disorganization of thought processes. She does not complain of intrusive memories, does not complain of reexperiencing. The patient's shakes and restlessness have remitted off aripiprazole. She is without rest tremor, akathisia, observable dyskinesias. She is alert, oriented in 3 spheres, attentive and not distractible, recent memory is fair. Speech is soft but clear and gait is stable. Patient commits to safety out of hospital and in the community--denies passive or active SI or HI/intent. Patient commits firmly to the use of Crisis resources, including V[facility]/ED should she feel in any future danger of harming self or others. Crisis resources will be supplied to patient in discharge materials. NEXT VISIT NOTED: Tatiana remains quite anxious and depressed. She appears less labile to me but feels no better. She is tolerating current medication. She no longer feels Effexor is of benefit and wants to discuss alternatives. We agree to plan: 1. Increase brexpiprazole to 2mg; 2. increase mirtazapine to 45mg QHS. 3. Begin to cut down PHILLY to 225mg daily in consideration of cross-taper to a different SSRI. NEXT VISIT NOTED: I again reviewed treatments available for TRD including: ECT, TMS and spravato. She is not ready to pursue these but is willing to cross-taper off PHILLY to an SSRI. Will decrease former to 150mg daily and start on Lexapro 5mg daily to start. NEXT VISIT NOTED: Still doing IOP. We agree to increase Lexapro to 10mg daily and reduce PHILLY to 75mg daily, continue mirtazapine and brexpiprazole. Encouraged to continue in IOP. NOTED AT LAST OP VISIT: [place] reports same worries, different day. I think my hands are shaking significantly less. I'm going in the direction of a FT job but I'm afraid. The idea of sustaining myself scares me. I still have a home in [place]. I'm still working PT, I've been meeting with the [facility]. I took an assessment to gauge what kinds of employment would be good for me. 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 House: had a showing. Mother adds she still appears tired a lot, that she lacks interests in things, still paces a lot, does not laugh or show emotion, speaks slowly. She has stopped crying there was a ton before . Helps mother cooking. Is eating well. A/P: [place] is showing some signs of improvement since last visit with cross taper to Lexapro and coming off brexpiprazole. I am suggesting she stop PHILLY at this point; offered to either increase Lexapro vs adding Wellbutrin. For now we agree to stop PHILLY, increase Lexapro to 25mg then to 30mg daily if tolerated, continue mirtazapine for now (but may wean off this due to possible oversedation). PRESENTING SYMPTOMS AND CONDITION ON TODAY'S VISIT: reports I'm having a stressful time. My house hasn't sold. I'm moving in the direction of a FT job. I'm meeting with [facility]. They did an assessment of me? I'm scared of her ability to manage job responsibilities. Current job going OK. She feels her parents are frustrated with her. Seeing her therapist now twice per month. REVIEW OF SYSTEMS MENTAL HEALTH: SLEEP: + NATHALIE, gets at least 7 hours MOOD: I'm not very sad PTSD symptoms: not active ANXIETY: I'm very anxious ANGER/IRRITABILITY/AGGRESSION: Denies SUBSTANCE USE: Alcohol: rare Illegal/non-prescribed drugs: denies TOBACCO: Non-smoker EATING: I have a decent handle. I work out every day . Wt stable BETO/HYPOMANIA: None evident PSYCHOTIC FEATURES: denied Suicidal Thoughts/Intent/plan: Not active. I wish all this would come to an end . CURRENT PSYCH meds: mirtazapine 45 mg at bedtime, lorazepam 0.5mg daily as needed, Lexapro 30mg daily ADVERSE EFFECTS: ? hand tremor MED REC: no change VS: 07/02/2024 84 17 104/70 WT 106lbs (down from 111 lbs in Nov 2023) MENTAL STATUS EXAMINATION - Appearance and behavior: Appears stated age, appropriately groomed and dressed, NOT rocking back and forth today but c/o hand tremor - Speech and language: coherent - Mood: as noted above - Affect: anxious/tense, less constricted, no tears - Thought Process: Linear, logical; no loosening of associations or FOI - Thought Content: without delusions (paranoia, thought broadcasting, thought withdrawal, thought insertion, ideas of reference) - Perceptions: Denies auditory and visual hallucinations - IMPULSES/HARM: - Wishes to be ? See above - Thoughts/plan/intention of killing self? no - Homicidal ideation, plan, intent, actions: denied - Cognition: No noted impairment - Insight: no impairment evident - Judgment: no impairment evident NARRATIVE SUMMARY OF CURRENT CONDITION AND OVERALL PROGRESS TOWARD TREATMENT GOALS: appears less anxious and depressed than in the past, tolerated cross taper from PHILLY to Lexapro. Remains anxious but can be engaged in CBT concepts. No changes to suggest at this point. i. Severity of Illness: ()none ( )mild ( x )moderately ill ()severely ill ()very severely ill ii. Global Improvement: ()very much ()much ( x )min ( )none ()min worse ( )much worse ()very much worse iii. RISK ASSESSEMENT: currently (x ) no evidence of acute risk (x) elevated based on: feeling hopeless and defeated, thoughts to OD are rejected, has strong prohibitions (consequences to family, buddhist) () acute risk noted but agrees to Safety Plan () acute risk noted, emergency plan implemented INTERVENTION: -THERAPY: at least 16 minutes spend in individual counseling discussing psychological issues, coping strategies, current stressors -SOMATIC: reviewed and discussed medication options: risks, side effects alternatives understood and accepted; answered patient questions PLAN OF CARE/ RECOMMENDATIONS: 1. Recommended and discussed the following medications changes: as noted above 2. Tests or specialist referrals recommended, or old records desired, if any: none 3. Medical Necessity/ Psychiatric treatment goals for future visits: ( x) Sustain improvement ( x) Gain improvement toward remission ( x) Prevent decline in functioning ( x) Prevent hospitalization 4. Considered referral to psychotherapy program for any counseling needs: n/a 5. Considered referral to inpatient/IOP care: n/a 6. Considered referral nutrition program for any lifestyle/dietary needs: n/a 7. Follow-up plans; patient is scheduled for a follow-up appointment with myself in: 4 weeks, sooner if possible Additional Follow-Up instructions: 1. Reinforced: If urgent treatment is needed, call [phone] or go to the nearest Emergency Room 2. To schedule or change an appointment, inquire about medication refills, etc: call office number during normal office hours Diagnoses: Recurrent major depression (SCT [id number]) - Major depressive disorder, recurrent, in remission, unspecified (ICD-10-CM F33.40) (Primary) Anxiety (SCT [id number]) - Anxiety disorder, unspecified (ICD-10-CM F41.9) Generalized anxiety disorder (SCT [id number]) - Generalized anxiety disorder (ICD-10-CM F41.1) /carole/ IRENE CHEUNG M.D. Signed: 11/10/2024 13:57 IRENE CHEUNG
--- OUTSIDE RECORDS SUMMARY | 2024-12-28 15:10 | XMS_ITS | Encounter Summary ---
Author Name [facility] [place] [facility] [place] Address [address] [place] [address] Care Team Providers Care Grain Mixer Name Role Phone ARCENIO SUTHERLAND Primary Care Provider Unavail able Selected Encounter This section includes the information on record at [place] for the Encounter. Date/Time Encounter Type Encounter Description Reason Provider Source Oct 06, 2024 11:30 AM OFFICE O/P EST LOW 20 [facility] - IND ICD-10-CM F33.40 Major depressive disorder, recurrent, in remission, charleyp IRENE CHEUNG Dwight Encounter Template Text not used by [place] Assessments - Encounter Diagnoses This section includes the primary and secondary diagnoses documented for the Encounter. Date/Time Primary/Secondary Diagnosis Diagnosis Name Provider Source Oct 06, 2024 11:55 AM PRIMARY Major depressive disorder, recurrent, in remission, IRENE Gupta Oct 06, 2024 11:55 AM SECONDARY Anxiety disorder, unspecified IRENE CHEUNG Oct 06, 2024 11:55 AM SECONDARY Generalized anxiety disorder IRENE CHEUNG Plan [...] 20 appointments. The data comes from all [place] treatment facilities. Appointment Date/Time Appointment Type Appointme nt Facility Name Oct 21, 2024 11:30 AM AMBULATORY - NONE [facility] [place] [facility] Oct 27, 2024 02:30 PM AMBULATORY - PS[facility]CHIATRY [facility] [place] [facility] Nov 10, 2024 01:30 PM AMBULATORY - PS[facility]IATRY [facility] [place] [facility] Nov 26, 2024 09:00 AM AMBULATORY - [facility] [place] [facility] Dec 03, 2024 01:00 PM AMBULATORY - PS[facility]RY [facility] [place] [facility] Dec 09, 2024 10:00 AM AMBULATORY - PS[facility]IATRY [facility] [place] [facility] Dec 11, 2024 11:00 AM AMBULATORY - PS[facility]IATRY [facility] [place] [facility] Dec 15, 2024 01:00 PM AMBULATORY - PS[facility]CHIATRY [facility] [place] [facility] Dec 22, 2024 03:00 PM AMBULATORY - PS[facility]IATRY [facility] [place] [facility] Jan 01, 2025 01:30 PM AMBULATORY - PS[facility]IATRY [facility] [place] [facility] Jan 07, 2025 01:00 PM AMBULATORY - PS[facility]CHIATRY [facility] [place] [facility] Feb 12, 2025 10:30 AM AMBULATORY - MEDICINE [facility] Social History: Smoking Status (Most current) and Tobacco Use (All prior to encounter date) This section includes the most current, and the historical, smoking and tobacco- related health factors from the [place] facility where the Encounter took place. Current Smoking Status This section includes the most current smoking, or tobacco-related health factor, from the [place] facility where the Encounter took place. Date/Time Current Smoking Status Comment [facility] Feb 07, 2024 04:00 PM VA-TOBACCO NEVER USED [place] Tobacco Use History This section includes a history of the smoking, or tobacco-related health factors, that were collected on or before the date of the Encounter. The data comes from the [place] facility where the Encounter took place. Date/Time Smoking Status/Tobacco Use Comment F acility Nov 19, 2022 01:30 PM CO-TOBACCO NEVER USED [place] Oct 03, 2021 10:00 AM VA-TOBACCO NEVER USED [place] Nov 01, 2020 11:00 AM VA-TOBACCO NEVER USED [place] Oct 03, 2018 01:10 PM VA-TOBACCO NEVER USED [place] Apr 19, 2017 02:22 PM LIFETIME NON-TOBACCO USER [place] Jan 03, 2016 02:36 PM LIFETIME NON-TOBACCO USER [place] Feb 10, 2013 03:39 PM LIFETIME NON-TOBACCO USER [place] Advance Directives: All historical and current Section Date Range: From patient's date of to the date document was created. This section includes ALL of a patient's completed or amended [place] Advance and Rescinded Directives. The entries below indicate that a directive exists for the patient, but an actual copy is not included with this document. The data comes from all [place] facilities. Date Advance Directives Provider Source Jul 02, 2024 ADVANCE DIRECTIVE DISCUSSION REYNALDO GRIMES [facility] [place] [facility] Apr 14, 2014 ADVANCE DIRECTIVE DISCUSSION ESTELA [facility] Encounter Notes: All associated encounter notes This section contains the clinical notes associated to the Encounter. Date/Time Encounter Note(s) Provider Source Oct 06, 2024 11:29 AM TELEHEALTH NOTE: LOCAL TITLE: CO VIDEO CONNECT PSYCHIATRIST NOTE STANDARD TITLE: TELEHEALTH NOTE DATE OF NOTE: OCT 06, 2024@11:29 ENTRY DATE: OCT 06, 2024@11:30:29 AUTHOR: IRENE CHEUNG EXP COSIGNER: URGENCY: STATUS: COMPLETED VA Video Connect (VVC) Standard Documentation VVC Clinician Resources Only: E911 (Emergency Call Relay Center): [phone] National Veterans Crisis Line - 988 then press #1. CW Suicide Coordinator [phone], Ext. [phone]; Back-up Ext. [phone] [place] PoliceRANDY [place] [phone] Introduction: Visit is being conducted by [place] Sum[facility]. identified with 2 identifiers: [X] Full Name [X] Date of [ ] VA ID Card Emergency Plan: [place] confirmed and/or provided the following information in case of emergency or technology failure. PATIENT PHONE - PHONE NUMBER [CELLULAR] - Is patient phone number correct, if not, enter below: 's phone number: [address], [address] 's present location and address for appointment: same as above [place]ua's emergency contact name and phone number: unchanged reported that location is private and safe: Yes Informed Consent: informed of the risks and benefits of Telehealth video care. has the right to refuse video services. If refuses video visit, a [id number] visit will be scheduled. [place]anda[place]ua verbalized consent for this video visit: Yes [...] to 10 cups of coffee per day. 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 Return denies [...] of her eating disorder and severe anxiety. Canandaigua has received treatment at the residential eating disorder treatment program and has been on venlafaxine for a very long time. The goal of this assessment was to reevaluate her medicines. Tatiana tried alpha stim with significant improvement in [...] alpha stim LAST SEEN BY DR HACKETT 2021, noting: She tells the food writer that she has been seeing a [...] therapy. This was little upsetting to the [place]anda[place]ua. She says that she had few nightmares for couple days but those have resolved. She finds the medications and alpha stim very useful. She describes her moods, sleep, motivation, energy levels and concentrations as reasonable. She is continues to function adequately. She clearly denies any SI/HI. She denies any illicit drug or alcohol use? Plan: Continue venlafaxine without any changes --------- -- PRESENTATION AT TIME OF INITIAL VISIT WITH MYSELF 10/25/23: reports the VA wanted me to continue to seeing someone periodically b/c I'm on a certain medication . She just moved to [place] January 09 (been traveling back and forth to [place] but just got a house there). 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 Uses alpha stim daily (occasionally BID), sees a therapist every week (in [place]) remotely. Continues on Effexor I know its [...] dreams occasionally awakens screaming when home in [place] ANXIETY: I've felt at peace recently , [...] this. I noted 01/15/24: Returned call from [place], reports the dose increase helped a little, but its too much. I'm crying everyday, some days its very intense , under work stress. Talks to a therapist weekly. Feeling isolated, talking to man in [facility] dreading it and i'm afraid, but i'm [...] abilify to 5mg daily. NEXT VISIT NOTED: Tatiana reports I'm preparing the move back home to [place], I need to be with them right [...] states Tatiana was calling her frequently from [place], and since being home doesn't know where [...] patient in discharge materials. NEXT VISIT NOTED: remains quite anxious and depressed. She appears [...] I again reviewed treatments available for TRD including : ECT, TMS and spravato. She is not ready to pursue these but is willing to cross-taper off PHILLY to an SSRI. Will decrease former to 150mg daily and start on Lexapro 5mg daily to start. NOTED AT LAST OP VISIT: reports I think its rough b/c I have a lot of idle time, I'm only working PT. I still haven't sold the house. Meds no adverse reactions . Still doing IOP. We agree to increase Lexapro to 10mg daily and reduce PHILLY to 75mg daily, continue mirtazapine and brexpiprazole. Encouraged to continue in IOP. I then noted on 10/01: I called patient who again reiterated that tremor has been a problem for some time, but has gotten worse but cannot pointpoint how long this has been the case. Mother feels it has been worse for at least for the past 2 weeks. In addition her legs shake as well. She does not find ativan helpful in relieving this. Given her low BP I dont feel we can safely give her a beta zbigniew. Therefore I suggested she stop the brexpiprazole for now as this is the med most likely to be contributing to this symptom. I will meet with her for a scheduled appointment on 10/06 to follow up on this . --------- -- PRESENTING SYMPTOMS AND CONDITION ON TODAY'S VISIT: Canandaigua reports I got sick, I was vomiting. I had headaches which affected my sleep and my food intake. I was in bed for a few days. I still have the tremors . No longer in IOP after 5 weeks, completed. Now seeing her therapist once/week. REVIEW OF SYSTEMS MENTAL HEALTH: SLEEP: + NATHALIE, gets at least 7 hours MOOD: I feel overwhelmed with circumstances, that's dictating my mood. PTSD symptoms: not active ANXIETY: I'm always anxious ANGER/IRRITABILITY/AGGRESSION: Denies SUBSTANCE USE: Alcohol: rare Illegal/non-prescribed drugs: denies TOBACCO: Non-smoker EATING: I have a decent handle. I work out every day . Wt stable BETO/HYPOMANIA: None evident PSYCHOTIC FEATURES: denied Suicidal Thoughts/Intent/plan: I wish all this would come to an end, that's constant . Methods come to her mind such as overdosing on her pills I know that wouldn't kill me, it would just land me in the hospital , so dismisses it. CURRENT PSYCH meds: venlafaxine 75mg daily, mirtazapine 45 mg at bedtime, lorazepam 0.5mg daily as needed, Lexapro 10mg daily ADVERSE EFFECTS: hand tremor MED REC: no change VS: 07/02/2024 97.4 84 17 104/70 WT 106lbs (down from 111 lbs in Nov 2023) MENTAL STATUS EXAMINATION - Appearance and behavior: Appears stated age, appropriately groomed and dressed, NOT rocking back and forth today - Speech and language: coherent - Mood: as noted above - Affect: anxious/tense, constricted but no tears today - Thought Process: Linear, logical; no loosening [...] CONDITION AND OVERALL PROGRESS TOWARD TREATMENT GOALS: has stopped brexpiprazole x 5 days and is still tremulous. It may be too soon for adverse effects from this to have resolved and we need to give this more time. We agree to continue to increase Lexapro: to 15mg daily then to 20mg. She will continue to cut Effexor to 37.5mg daily and continue on mirtazapine. She again declines to have me pursue TMS or ECT at this time. i. Severity of Illness: ()none ( )mild ( x )moderately ill (x)severely ill ()very severely ill ii. Global Improvement: ()very much ()much ( )min (x )none ()min worse ( )much worse ()very much worse iii. RISK ASSESSEMENT: currently (x ) no evidence of acute risk (x) elevated based on: feeling hopeless and defeated, thoughts to OD are rejected, has strong prohibitions (consequences to family, pentecostal) () acute risk noted but agrees to [...] for a follow-up appointment with myself in: 2-4 weeks, sooner if possible Additional Follow-Up instructions: 1. Reinforced: If urgent treatment is needed, call [phone] or go to the nearest Emergency Room 2. To schedule or change an appointment, inquire about medication refills, etc: call office number during normal office hours Diagnoses: Recurrent major depression (SCT [id number]) - Major depressive disorder, recurrent, in remission, unspecified (ICD-10-CM F33.40) (Primary) Anxiety (SCT [id number]) - Anxiety disorder, unspecified (ICD-10-CM F41.9) Generalized anxiety disorder (SCT [id number]) - Generalized anxiety disorder (ICD-10-CM F41.1) /carole/ IRENE CHEUNG M.D. Signed: 10/06/2024 11:56 IRENE CHEUNG
--- OUTSIDE RECORDS SUMMARY | 2024-12-28 15:10 | XMS_ITS ---
[place] NUTRITION[facility]DIETET[facility]IV[facility]UAL [facility] Encounter Summary Created on: December 08, 2024 STEPH JOHNS : 1985 Sex: Female Author Name [facility] [place] Address [address] [place] [address] Care Team Providers Care Sharepoint Administrator Name Role Phone JOE WADE Primary Care Provider Unavailabl e Selected Encounter This section includes the information on record at [place] for the Encounter. Date/Time Encounter Type Encounter Description Reason Pro vider Source Oct 21, 2024 11:30 AM Outpatient Encounter NUTRITION/DIETETICS-I NDIVIDUAL IHE Encounter Template Text not used by [place] Plan of Treatment: Future Appointments (+ 6 months) and Future Tests (+/- 45 days) The Plan of Treatment section includes future care activities for the patient from all [place] treatmentfacilities. This section includes future appointments and future orders which are active, pending or scheduled. Future Appointments This section includes appointments that were scheduled to occur 6 months from the date of the Encounter, up to a maximum of 20 appointments. The data comes from all [place] treatment facilities. Appointment Date/Time Appointment Type Appointme nt Facility Name Oct 27, 2024 02:30 PM [facility] Nov 10, 2024 01:30 PM [facility] [place] [facility] Nov 26, 2024 09:00 AM [facility] Dec 03, 2024 01:00 PM [facility] Dec 09, 2024 10:00 AM AMBULATORY - PSYCHIATRY [facility] Dec 10, 2024 03:00 PM AMBULATORY - PSYCHIATRY [facility] Advance Directives: All historical and current Section Date Range: From patient's date of to the date document was created. This section includes ALL of a patient's completed or amended [place] Advance and Rescinded Directives. The entries below indicate that a directive exists for the patient, but an actual copy is not included with this document. The data comes from all [place] facilities. Date Advance Directives Provider Source Jul 02, 2024 ADVANCE DIRECTIVE DISCUSSION REYNALDO GRIMES [facility] Apr 14, 2014 ADVANCE DIRECTIVE DISCUSSION ESTELA [facility] Encounter Notes: All associated encounter notes This section contains the clinical notes associated to the Encounter. Date/Time Encounter Note(s) Provider Source Oct 21, 2024 11:30 AM NUTRITION DIETETIC S NOTE: LOCAL TITLE: NUTRITION PROGRESS NOTE STANDARD TITLE: NUTRITION DIETETICS NOTE DATE OF NOTE: OCT 21, 2024@11:30 ENTRY DATE: OCT 21, 2024@11:53:46 AUTHOR: ADELINE BERG EXP COSIGNER: URGENCY: STATUS: COMPLETED Patient not found in virtual medical room for scheduled Nutrition appt. Telephone call to patient, call sent to voice mail. Left message of appt and option to call to reschedule if unable to join. Also sent letter of missed appt requesting patient reschedule appt. /carole/ ADELINE BERG RD,LDN STAFF DIETITIAN Signed: 10/21/2024 12:00 Receipt Acknowledged By: 10/21/2024 12:33 /es/ IVORY ROWAN Registered Nurse 10/21/2024 15:23 /es/ ADELINE RAE M.D. [facility]
--- OUTSIDE RECORDS SUMMARY | 2024-12-28 15:10 | XMS_ITS | Encounter Summary ---
Author Name [facility] [place] [facility] [place] Address [address] [place] [address] Care Team Providers Care Peoplesoft Hcm Consultant Name Role Phone JOE WADE Primary Care Provider Unavailabl e Selected Encounter This section includes the information on record at [place] for the Encounter. Date/Time Encounter Type Encounter Description Reason Provider Source Oct 27, 2024 02:30 PM OFFICE O/P EST MOD 30 MIN [facility] - IND ICD-10-CM F33.40 Major depressive disorder, recurrent, in remission, IRENE Gupta Dwight Encounter Template Text not used by [place] Assessments - Encounter Diagnoses This section includes the primary and secondary diagnoses documented for the Encounter. Date/Time Primary/Secondary Diagnosis Diagnosis Name Provider Source Oct 27, 2024 03:02 PM PRIMARY Major depressive disorder, recurrent, in remission, IRENE Gupta LINO Oct 27, 2024 03:02 PM SECONDARY Generalized anxiety disorder IRENE CHEUNG Plan of Treatment: Future Appointments (+ 6 months) and Future Tests (+/- 45 days) The Plan of Treatment section includes future care activities for the patient from all [place] treatmentfacilities. This section includes future appointments and future orders which are active, pending or scheduled. Future Appointments This section includes appointments that were scheduled to occur 6 months from the date of the Encounter, up to a maximum of 20 appointments. The data comes from all [place] treatment facilities. Appointment Date/Time Appointment Type Appointme nt Facility Name Nov 10, 2024 01:30 PM [facility] Nov 26, 2024 09:00 AM [facility] Dec 03, 2024 01:00 PM [facility] Dec 09, 2024 10:00 AM [facility] Dec 10, 2024 03:00 PM [facility] Social History: Smoking Status (Most current) and Tobacco Use (All prior to encounter date) This section includes the most current, and the historical, smoking and tobacco- related health factors from the [place] facility where the Encounter took place. Current Smoking Status This section includes the most current smoking, or tobacco-related health factor, from the [place] facility where the Encounter took place. Date/Time Current Smoking Status Comment Hima [facility] Feb 07, 2024 04:00 PM [place]-TOBACCO NEVER USED [place] Tobacco Use History This section includes a history of the smoking, or tobacco-related health factors, that were collected on or before the date of the Encounter. The data comes from the [place] facility where the Encounter took place. Date/Time Smoking Status/Tobacco Use Comment F acility Nov 19, 2022 01:30 PM [place]-TOBACCO NEVER USED [place] Oct 03, 2021 10:00 [facility] [place] Nov 01, 2020 11:00 AM [place]-TOBACCO NEVER USED [place] Oct 03, 2018 01:10 PM [place]-TOBACCO NEVER USED [place] Apr 19, 2017 02:22 PM LIFETIME NON-TOBACCO USER [place] Jan 03, 2016 02:36 PM LIFETIME NON-TOBACCO USER [place] Feb 10, 2013 03:39 PM LIFETIME NON-TOBACCO USER [place] Advance Directives: All historical and current Section Date Range: From patient's date of to the date document was created. This section includes ALL of a patient's completed or amended [place] Advance and Rescinded Directives. The entries below indicate that a directive exists for the patient, but an actual copy is not included with this document. The data comes from all [place] facilities. Date Advance Directives Provider Source Jul 02, 2024 ADVANCE DIRECTIVE DISCUSSION REYNALDO GRIMES [facility] Apr 14, 2014 ADVANCE DIRECTIVE DISCUSSION ESTELA [facility] Encounter Notes: All associated encounter notes This section contains the clinical notes associated to the Encounter. Date/Time Encounter Note(s) Provider Source Oct 27, 2024 02:31 PM TELEHEALTH NOTE: LOCAL TITLE: [facility] VIDEO CONNECT PSYCHIATRIST NOTE STANDARD TITLE: TELEHEALTH NOTE DATE OF NOTE: OCT 27, 2024@14:31 ENTRY DATE: OCT 27, 2024@14:31:10 AUTHOR: IRENE CHEUNG COSIGNER: URGENCY: STATUS: COMPLETED [facility] Video Connect (VVC) Standard Documentation VVC Clinician Resources Only: E911 (Emergency Call Relay Center): [phone] National Veterans Crisis Line - 988 then press #1. [facility] Suicide Coordinator [phone], Ext. [phone]; Back-up Ext. [phone] [place] Police, Marlo PADILLA [phone] Introduction: Visit is being conducted by [place] [employer]. identified with 2 identifiers: [X] Full Name [X] Date of [ ] [place] ID Card Emergency Plan: confirmed and/or provided the following information in case of emergency or technology failure. PATIENT PHONE - PHONE NUMBER [CELLULAR] - Is patient phone number correct, if not, enter below: [place]'s phone number: STEPH JOHNS [address], [place], [address] [place]'s present location and address for appointment: same as above 's emergency contact name and phone number: unchanged reported that location is private and safe: Yes Informed Consent: informed of the risks and benefits of Telehealth video care. [place] has the right to refuse video services. If refuses video visit, a [id number]-bu-wycm visit will be scheduled. [place] verbalized consent for this video visit: Yes [place] provided consent for any other persons present for visit: Yes If yes, who and relationship to patient:mother Secure visit: Visit was locked for security [...] to 10 cups of coffee per day. [place] has double masters, she is employed with [...] of her eating disorder and severe anxiety. [place] has received treatment at the residential eating disorder treatment program and has been on venlafaxine for a very long time. The goal of this assessment was to reevaluate her medicines. [place] tried alpha stim with significant improvement in [...] DR HACKETT SEPT2021, noting: She tells the repairer typewriter that she has been seeing a therapist [...] therapy. This was little upsetting to the . She says that she had few nightmares [...] TIME OF INITIAL VISIT WITH MYSELF 10/25/23: [place] reports the [place] wanted me to continue to seeing someone periodically b/c I'm on a certain medication . She just moved to [place] January 09 (been traveling back and forth to [place] but just got a house there). 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 Uses alpha stim daily (occasionally BID), sees a therapist every week (in [place]) remotely. Continues on Effexor I know its [...] dreams occasionally awakens screaming when home in [place] ANXIETY: I've felt at peace recently , [...] weekly. Feeling isolated, talking to man in [facility] dreading it and i'm afraid, but i'm [...] abilify to 5mg daily. NEXT VISIT NOTED: [place] reports I'm preparing the move back home to [place], I need to be with them right [...] states Tatiana was calling her frequently from [place], and since being home doesn't know where [...] in IOP. NOTED AT LAST OP VISIT: Tatiana has stopped brexpiprazole x 5 days and [...] pursue TMS or ECT at this time. PRESENTING SYMPTOMS AND CONDITION ON TODAY'S VISIT: [place] reports same worries, different day. I think my hands are shaking significantly less. I'm going in the direction of a FT job but I'm afraid. The idea of sustaining myself scares me. I still have a home in [facility]. I'm still working PT, I've been meeting with the [facility]. I took an assessment to gauge what kinds of employment would be good for me. 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 House: had a showing. Mother adds she still appears tired a lot, that she lacks interests in things, still paces a lot, does not laugh or show emotion, speaks slowly. She has stopped crying there was a ton before . Helps mother cooking. Is eating well. REVIEW OF SYSTEMS MENTAL HEALTH: SLEEP: + NATHALIE, gets at least 7 hours MOOD: I'm not feeling particularly depressed, just worried PTSD symptoms: not active ANXIETY: I'm always anxious ANGER/IRRITABILITY/AGGRESSION: Denies SUBSTANCE USE: Alcohol: rare Illegal/non-prescribed drugs: denies TOBACCO: Non-smoker EATING: I have a decent handle. I work out every day . Wt stable BETO/HYPOMANIA: None evident PSYCHOTIC FEATURES: denied Suicidal Thoughts/Intent/plan: I wish all this would come to an end, that's constant . CURRENT PSYCH meds: venlafaxine 37.5mg daily, mirtazapine 45 mg at bedtime, lorazepam 0.5mg daily as needed, Lexapro 20mg daily ADVERSE EFFECTS: hand tremor MED REC: [...] CONDITION AND OVERALL PROGRESS TOWARD TREATMENT GOALS: [place] is showing some signs of improvement since [...] wean off this due to possible oversedation). i. Severity of Illness: ()none ( )mild [...] rejected, has strong prohibitions (consequences to family, presybeterian) () acute risk noted but agrees to [...] Reinforced: If urgent treatment is needed, call [phone] or go to the nearest Emergency Room 2. To schedule or change an appointment, inquire about medication refills, etc: call office number during normal office hours Diagnoses: Recurrent major depression (SCT 16169860) - Major depressive disorder, recurrent, in remission, unspecified (ICD-10-CM F33.40) (Primary) Anxiety (SCT 87607270) - Anxiety disorder, unspecified (ICD-10-CM F41.9) Generalized anxiety disorder (SCT 69309231) - Generalized anxiety disorder (ICD-10-CM F41.1) /carole/ IRENE CHEUNG M.D. Signed: 10/27/2024 15:02 IRENE CHEUNG
--- OUTSIDE RECORDS SUMMARY | 2024-12-28 15:10 | XMS_ITS | Encounter Summary ---
Author Name [facility] [place] Organization [facility] [place] Address [address] [place] [address] Care Team Providers Care Field Application Engineer Name Role Phone ARCENIO SUTHERLAND Primary Care Provider Unavail able Selected Encounter This section includes the information on record at [place] for the Encounter. Date/Time Encounter Type Encounter Description Reason Provider Source Dec 11, 2024 11:00 AM OFFICE O/P EST LOW 20 MIN [facility] CLINIC - IND ICD-10-CM F33.40 Major depressive disorder, recurrent, in remission, charleyp IRENE CHEUNG Dwight Encounter Template Text not used by [place] Assessments - Encounter Diagnoses This section includes the primary and secondary diagnoses documented for the Encounter. Date/Time Primary/Secondary Diagnosis Diagnosis Name Provider Source Dec 11, 2024 11:25 AM PRIMARY Major depressive disorder, recurrent, in remission, IRENE Gupta LINO Dec 11, 2024 11:25 AM SECONDARY Generalized anxiety disorder IRENE CHEUNG [place] Plan of Treatment: Future Appointments (+ 6 months) and Future Tests (+/- 45 days) The Plan of Treatment section includes future care activities for the patient from all [place] treatmentfacilities. This section includes future appointments and future orders which are active, pending or scheduled. Future Appointments This section includes appointments that were scheduled to occur 6 months from the date of the Encounter, up to a maximum of 20 appointments. The data comes from all [place] treatment facilities. Appointment Date/Time Appointment Type Appointme nt Facility Name Dec 15, 2024 01:00 PM [facility] Dec 22, 2024 03:00 PM [facility] [place] [facility] Jan 01, 2025 01:30 PM [facility]UL[facility] Jan 07, 2025 01:00 PM [facility] Feb 12, 2025 10:30 AM AM[facility]ULATORY - MEDICINE [facility] Active, Pending, and Scheduled Orders This section includes a listing of several types of active, pending, and scheduled orders, including clinic medications orders, diagnostic test orders, procedure orders and consult orders; where the start date of the order is 45 days before the date of the Encounter or 45 days after the date of theEncounter. The data comes from all [place] treatment facilities. Test Date/Time Test Type Test Details Facility Name Dec 11, 2024 11:46 AM Consult Order [facility] Cons Elevator [facility] Social History: Smoking Status (Most current) and Tobacco Use (All prior to encounter date) This section includes the most current, and the historical, smoking and tobacco- related health factors from the [place] facility where the Encounter took place. Current Smoking Status This section includes the most current smoking, or tobacco-related health factor, from the [place] facility where the Encounter took place. Date/Time Current Smoking Status Comment Hima horn Feb 07, 2024 04:00 PM VA-TOBACCO NEVER USED [place] Tobacco Use History This section includes a history of the smoking, or tobacco-related health factors, that were collected on or before the date of the Encounter. The data comes from the [place] facility where the Encounter took place. Date/Time Smoking Status/Tobacco Use Comment F acility Nov 19, 2022 01:30 PM VA-TOBACCO NEVER USED [place] Oct 03, 2021 10:00 AM VA-TOBACCO NEVER USED [place] Nov 01, 2020 11:00 AM VA-TOBACCO NEVER USED [place] Oct 03, 2018 01:10 PM VA-TOBACCO NEVER USED [place] Apr 19, 2017 02:22 PM LIFETIME NON-TOBACCO USER [place] Jan 03, 2016 02:36 PM LIFETIME NON-TOBACCO USER [place] Feb 10, 2013 03:39 PM LIFETIME NON-TOBACCO USER [place] Advance Directives: All historical and current Section Date Range: From patient's date of to the date document was created. This section includes ALL of a patient's completed or amended [place] Advance and Rescinded Directives. The entries below indicate that a directive exists for the patient, but an actual copy is not included with this document. The data comes from all [place] facilities. Date Advance Directives Provider Source Jul 02, 2024 ADVANCE DIRECTIVE DISCUSSION REYNALDO GRIMES [facility] Apr 14, 2014 ADVANCE DIRECTIVE DISCUSSION ESTELA [facility] Encounter Notes: All associated encounter notes This section contains the clinical notes associated to the Encounter. Date/Time Encounter Note(s) Provider Source Dec 11, 2024 11:00 AM TELEHEALTH NOTE: LOCAL TITLE: [place] VIDEO CONNECT PSYCHIATRIST NOTE STANDARD TITLE: TELEHEALTH NOTE DATE OF NOTE: DEC 11, 2024@11:00 ENTRY DATE: DEC 11, 2024@11:00:45 AUTHOR: IRENE CHEUNG EXP COSIGNER: URGENCY: STATUS: COMPLETED VA Video Connect (VVC) Standard Documentation VVC Clinician Resources Only: E911 (Emergency Call Relay Center): [phone] National Veterans Crisis Line - 9[address] press #[address] [facility] Suicide Coordinator [phone], Ext. [phone]; Back-up Ext. [phone] [place] Police, Marlo PADILLA [phone] Introduction: Visit is being conducted by [place] [employer]. identified with 2 identifiers: [X] Full Name [X] Date of [ ] [place] ID Card Emergency Plan: [place] confirmed and/or provided the following information in case of emergency or technology failure. PATIENT PHONE - PHONE NUMBER [CELLULAR] - Is patient phone number correct, if not, enter below: Emily's phone number: STEPH DEBORAH JOHNS [address], [place], [address] Emily's present location and address for appointment: same as above Emily's emergency contact name and phone number: unchanged reported that location is private and safe: Yes Informed Consent: informed of the risks and benefits of Telehealth video care. has the right to refuse video services. If refuses video visit, a lyvm-qd-phbn visit will be scheduled. 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 Return denies [...] of her eating disorder and severe anxiety. Emily has received treatment at the residential eating disorder treatment program and has been on venlafaxine for a very long time. The goal of this assessment was to reevaluate her medicines. Emily tried alpha stim with significant improvement in [...] alpha stim LAST SEEN BY DR HACKETT SEPT. 2021, noting: She tells the fha underwriter that she has been seeing a therapist [...] therapy. This was little upsetting to the Emily. She says that she had few nightmares [...] TIME OF INITIAL VISIT WITH MYSELF 10/25/23: [place] reports the [place] wanted me to continue to seeing someone periodically b/c I'm on a certain medication . She just moved to [place] January 09 (been traveling back and forth to [place] but just got a house there). 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 Uses alpha stim daily (occasionally BID), sees a therapist every week (in [place]) remotely. Continues on Effexor I know its [...] dreams occasionally awakens screaming when home in [place] ANXIETY: I've felt at peace recently , [...] weekly. Feeling isolated, talking to man in [facility] dreading it and i'm afraid, but i'm [...] I'm preparing the move back home to [place], I need to be with them right [...] states Tatiana was calling her frequently from [place], and since being home doesn't know where [...] patient in discharge materials. NEXT VISIT NOTED: Emily remains quite anxious and depressed. She appears [...] and brexpiprazole. Encouraged to continue in IOP. NEXT VISIT NOTED: Tatiana is showing some signs of improvement since [...] wean off this due to possible oversedation). NOTED AT LAST OP VISIT: Tatiana reports I'm having a stressful time. My house hasn't sold. I'm moving in the direction of a FT job. I[facility] meeting with [facility]. They did an assessment of me? I'm scared of her ability to manage job responsibilities. Current job going OK. She feels her parents are frustrated with her. Seeing her therapist now twice per month. A/P: Tatiana appears less anxious and depressed than in the past, tolerated cross taper from PHILLY to Lexapro. Remains anxious but can be engaged in CBT concepts. No changes to suggest at this point. Psychologist recently noted: Emily's mother shared that the is still struggling significantly and she wants to advocate for a second opinion as far as a prescriber goes and pushes for EMDR for this . We had already talked about EMDR and fha underwriter had explained that time that it requires a great deal of distress tolerance which the doesn't have and given that specific traumas are not 's presenting problem, what makes more sense is for her to do a DBT program. Carpet Yarn Winder Operator had referred her to a program in the community in August and it became clear more recently that the hadn't followed up and the referral had languished for a while. She has since spoken to the provider (service net) but there is uncertainty about whether she's in their coverage area and someone is supposed to call her back about that. Emily and mother agreed that can follow up about this. Carpet Yarn Winder Operator also brought up the idea of ECT or TMS, given the severity of her rumination and accompanying depression and the very minimal impact medication has had for her. This is combined with the fact that the doesn't feel like she's capable of working on skills right now A lot of this therapy puts the burden on me to do things, and I'm the fragile one! . Carpet Yarn Winder Operator expressed understanding that what providers are asking of her is incredibly hard work and that undoing some of the thinking patterns she's held for a while takes a lot of practice and work to unravel. And for that reason, fha underwriter wondered if something like ECT or TMS might help and put her in a better place to start making those efforts in therapy. Carpet Yarn Winder Operator told her that I'd consult with a prescriber with more specialized knowledge of those interventions and also encoruaged her to talk to the psychiatrist. --------- -- PRESENTING SYMPTOMS AND CONDITION ON TODAY'S VISIT: reports I'm having a heck of time with my anxiety. Its worse. It's this deep, more pronounced. I went to my aunt's house and I was in distress about my 2 big concerns: the house and my pursuit of a FT job. Yesterday I had a meeting with people helping me with the job search. After that meeting I was crying and spent the next few hours looking up guided meditations b/c I have a lot of negative self-talk and self-doubt. I'm afraid of what job I'm going to get and my ability to maintain it . Has increased her Ativan recently to 1mg BID sometimes it helps calm me down, it takes the edge off after a while . Tried valium for a week didn't help for anxiety . 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 REVIEW OF SYSTEMS MENTAL HEALTH: SLEEP: + NATHALIE, gets at least 7 hours MOOD: I have no antonio PTSD symptoms: not active ANXIETY: I'm very anxious ANGER/IRRITABILITY/AGGRESSION: Denies SUBSTANCE USE: Alcohol: rare Illegal/non-prescribed drugs: denies TOBACCO: Non-smoker EATING: I have a decent handle. I work out every day . Wt stable BETO/HYPOMANIA: None evident PSYCHOTIC FEATURES: denied Suicidal Thoughts/Intent/plan: Not active. I wish I could disappear or the Lord would take me in my sleep CURRENT PSYCH meds: mirtazapine 45 mg at bedtime, lorazepam 0.5mg BID prn, Lexapro 30mg daily ADVERSE EFFECTS: none MED REC: no change VS: 07/02/2024 84 17 104/70 WT 106lbs (down from 111 lbs in Nov 2023) EKG: Jun 2024 NSR, QTc 408 MENTAL STATUS EXAMINATION - Appearance and behavior: Appears stated age, appropriately groomed and dressed, NOT rocking back and forth - Speech and language: coherent - Mood: as noted above - Affect: anxious/tense, no tears - Thought Process: Linear, logical; [...] CONDITION AND OVERALL PROGRESS TOWARD TREATMENT GOALS: Emily remains quite depressed and anxious despite current treatment. We reviewed options including increasing Lexapro, TMS, spravato. She agrees to increase Lexapro to 40mg aware this is above FDA dosing and for TMS referral. i. Severity of Illness: ()none ( )mild [...] rejected, has strong prohibitions (consequences to family, scientology) () acute risk noted but agrees to [...] office hours Diagnoses: Recurrent major depression (SCT [id number]) - Major depressive disorder, recurrent, in remission, unspecified (ICD-10-CM F33.40) (Primary) Anxiety (SCT [id number]) - Anxiety disorder, unspecified (ICD-10-CM F41.9) Generalized anxiety disorder (SCT [id number]) - Generalized anxiety disorder (ICD-10-CM F41.1) /es/ IRENE CHEUNG M.D. Signed: 12/11/2024 11:28 IRENE CHEUNG
--- OUTSIDE RECORDS SUMMARY | 2024-12-28 15:10 | XMS_ITS ---
Author Name [facility] [place] [facility] [place] [facility] [place] Address [address] [place] [address] Care Team Providers Care Acquisitions Logistics Analyst Name Role Phone ARCENIO SUTHERLAND Primary Care Provider Unavail able Selected Encounter This section includes the information on record at [place] for the Encounter. Date/Time Encounter Type Encounter Description Reason Pro vider Source Dec 09, 2024 07:51 AM [facility] En[facility] Template Text not used by [place] Plan of Treatment: Future Appointments (+ 6 months) and Future Tests (+/- 45 days) The Plan of Treatment section includes future care activities for the patient from all [place] treatmentfacilities. This section includes future appointments and future orders which are active, pending or scheduled. Future Appointments This section includes appointments that were scheduled to occur 6 months from the date of the Encounter, up to a maximum of 20 appointments. The data comes from all [place] treatment facilities. Appointment Date/Time Appointment Type Appointme nt Facility Name Dec 11, 2024 11:00 AM [place]ORY [place] [facility] [place] [facility] Dec 15, 2024 01:00 PM [place]ORY [place] [facility] [place] [facility] Dec 22, 2024 03:00 PM [place] [facility] [facility] Jan 01, 2025 01:30 PM [facility] [place] [facility] Jan 07, 2025 01:00 PM AMBULATORY - PS[facility]IATRY [facility] Feb 12, 2025 10:30 AM [facility] Active, Pending, and Scheduled Orders This section includes a listing of several types of active, pending, and scheduled orders, including clinic medications orders, diagnostic test orders, procedure orders and consult orders; where the start date of the order is 45 days before the date of the Encounter or 45 days after the date of theEncounter. The data comes from all [place] treatment facilities. Test Date/Time Test Type Test Details Facility Name Dec 11, 2024 11:46 AM Consult Order [facility] Cons Regulatory Manager's Choice [facility] Advance Directives: All historical and current Section Date Range: From patient's date of to the date document was created. This section includes ALL of a patient's completed or amended [place] Advance and Rescinded Directives. The entries below indicate that a directive exists for the patient, but an actual copy is not included with this document. The data comes from all [place] facilities. Date Advance Directives Provider Source Jul 02, 2024 ADVANCE DIRECTIVE DISCUSSION REYNALDO GRIMES [facility] Apr 14, 2014 ADVANCE DIRECTIVE DISCUSSION ESTELA FLORENCE [facility] Encounter Notes: All associated encounter notes This section contains the clinical notes associated to the Encounter. Date/Time Encounter Note(s) Provider Source Dec 09, 2024 07:51 AM ADMINISTRATIVE NOT E: LOCAL TITLE: ADMINISTRATIVE NOTE STANDARD TITLE: ADMINISTRATIVE NOTE DATE OF NOTE: DEC 09, 2024@07:51 ENTRY DATE: DEC 09, 2024@07:51:35 AUTHOR: SARAH ANDERSON EXP COSIGNER: URGENCY: STATUS: COMPLETED Change Management Specialist received a voicemail from stating that it is important that her appointment with Eric on 12/10 needs to happen earlier in the day. Left a call back of [phone]. /carole/ SARAH ANDERSON CUSTOMER ACCOUNT 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 Signed: 12/09/2024 07:53 Receipt Acknowledged By: 12/09/2024 08:36 /carole/ Cintia Grullon ADVANCED CUSTOMER ACCOUNT 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 SARAH ANDERSON
--- OUTSIDE RECORDS SUMMARY | 2024-12-28 15:10 | XMS_ITS | Encounter Summary ---
Author Name [facility] [place] [facility] [place] [facility] [place] Address [address] [place] [address] Care Team Providers Care Manufacturing Accountant Name Role Phone ARCENIO SUTHERLAND Primary Care Provider Unavail able Selected Encounter This section includes the [place] on [place] at [place] for [place] Encounter. Date/Time Encounter Type Encounter Description Reason Pro vider Source Feb 07, 2024 07:50 AM Outpatient Encounter ADMIN PAT ACTIVTIES ([facility]AS[facility]) [facility] Encounter Template Text not used by [place] Plan of Treatment: Future Appointments (+ 6 months) and Future Tests (+/- 45 days) The Plan of Treatment section includes future care activities for the patient from all [place] treatmentfacilities. This section includes future appointments and future orders which are active, pending or scheduled. Future Appointments This section includes appointments that were scheduled to occur 6 months from the date of the Encounter, up to a maximum of 20 appointments. The data comes from all [place] treatment facilities. Appointment Date/Time Appointment Type Appointme nt Facility Name April 03, 2024 03:00 PM [place] [facility] [place] [facility] May 22, 2024 12:30 PM [place] [facility] [facility] Jun 15, 2024 01:30 PM [place] [facility] [facility] Jun 17, 2024 02:00 PM [place] [facility] [facility] Jun 17, 2024 02:01 PM [place] [facility] [place] [facility] Jun 18, 2024 02:18 PM AM[facility]UL[facility] [place] [place] [facility] Jun 18, 2024 02:19 PM AMBULATORY [place] [place] [facility] Jun 18, 2024 04:43 PM AMBULATORY [place] [place] [facility] Jul 06, 2024 01:30 PM AMBULATORY [place] [place] [facility] Jul 08, 2024 10:00 AM AMBULATORY [place] [facility] [place] [facility] Jul 08, 2024 10:30 AM [facility]IC[facility] Jul 09, 2024 01:00 PM [facility] [place] [facility] Jul 10, 2024 10:00 AM AM[place]ULATORY [place] Jul 14, 2024 10:30 AM AM[facility]ULAT[facility] Jul 17, 2024 09:00 AM [facility] [place] [facility] Jul 17, 2024 10:00 AM AM[place]ULATORY [place] Jul 23, 2024 09:30 AM [facility] [place] [facility] Jul 24, 2024 10:00 AM AMBULATORY [place] Jul 24, 2024 10:45 AM AMBULATORY - NONE [facility] Jul 27, 2024 02:00 PM [facility] Advance Directives: All historical and current Section Date Range: From patient's date of to the date document was created. This section includes ALL of a patient's completed or amended [place] Advance and Rescinded Directives. The entries below indicate that a directive exists for the patient, but an actual copy is not included with this document. The data comes from all [place] facilities. Date Advance Directives Provider Source Jul 02, 2024 ADVANCE DIRECTIVE DISCUSSION REYNALDO GRIMES [place] [facility] [place] [facility] Apr 14, 2014 ADVANCE DIRECTIVE DISCUSSION ESTELA FLORENCE [facility] Encounter Notes: All associated encounter notes This section contains the clinical notes associated to the Encounter. Date/Time Encounter Note(s) Provider Source Feb 07, 2024 07:50 AM NURSING NOTE: LOCAL TITLE: PCMM TRAVELING/RELOCATING COORDINATION NOTE STANDARD TITLE: NURSING NOTE DATE OF NOTE: FEB 07, 2024@07:50 ENTRY DATE: FEB 07, 2024@07:50:08 AUTHOR: BRITNI MCMULLEN COSIGNER: URGENCY: STATUS: COMPLETED Chart Review PCMM (Patient-Centered Management Module) Chart reviewed for relocation verification. Dow has future appointment at [facility] to establish care on February 18, 2024. (Pending new patient appointment). /carole/ BRITNI MCMULLEN REGISTERED NURSE Signed: 02/07/2024 07:51 BRITNI MCMULLEN [facility]
--- OUTSIDE RECORDS SUMMARY | 2024-12-28 15:10 | XMS_ITS | Encounter Summary ---
Author Name [facility] Address [address] [place] [address] Care Team Providers Care Lace Winder Name Role Phone ARCENIO SUTHERLAND Primary Care Provider Unavail able Selected Encounter This section includes the information on record at [place] for the Encounter. Date/Time Encounter Type Encounter Description Reason Provider Source Dec 15, 2024 01:00 PM PSYTX W PT 45 MINUTES [facility] - IND ICD-10-CM F33.2 Major depressv disorder, recurrent severe w/o psych features DAYLIN GEORGE [place] Encounter Template Text not used by [place] Assessments - Encounter Diagnoses This section includes the primary and secondary diagnoses documented for the Encounter. Date/Time Primary/Secondary Diagnosis Diagnosis Name Provider Source Dec 15, 2024 03:24 PM PRIMARY Major depressv disorder, recurrent severe w/o psych features AAMDEO GEORGE [place] Dec 15, 2024 03:24 PM SECONDARY Generalized anxiety disorder AMADEO GEORGE [place] Plan of Treatment: Future Appointments (+ 6 months) and Future Tests (+/- 45 days) The Plan of Treatment section includes future care activities for the patient from all [place] treatmentfacilities. This section includes future appointments and future orders which are active, pending or scheduled. Future Appointments This section includes appointments that were scheduled to occur 6 months from the date of the Encounter, up to a maximum of 20 appointments. The data comes from all [facility] treatment facilities. Appointment Date/Time Appointment Type Appointme nt Facility Name Dec 22, 2024 03:00 PM AMBULATORY - PSYCHIATRY [facility] Jan 01, 2025 01:30 PM AM[facility] Jan 07, 2025 01:00 PM AMB[facility]ORY - [facility]CH[facility]ATRY [facility] Feb 12, 2025 10:30 AM AMBULATORY - MEDICINE [facility] [place] Active, Pending, and Scheduled Orders This section includes a listing of several types of active, pending, and scheduled orders, including clinic medications orders, diagnostic test orders, procedure orders and consult orders; where the start date of the order is 45 days before the date of the Encounter or 45 days after the date of theEncounter. The data comes from all [facility]. Test Date/Time Test Type Test Details Facility Name Dec 11, 2024 11:46 AM Consult Order [facility] Cons [employer] Worker's Choice [facility] Social History: Smoking Status (Most current) and Tobacco Use (All prior to encounter date) This section includes the most current, and the historical, smoking and tobacco- related health factors from the [place] facility where the Encounter took place. Current Smoking Status This section includes the most current smoking, or tobacco-related health factor, from the [place] facility where the Encounter took place. Date/Time Current Smoking Status Comment [facility] Feb 07, 2024 04:00 PM VA-TOBACCO NEVER USED [place] Tobacco Use History This section includes a history of the smoking, or tobacco-related health factors, that were collected on or before the date of the Encounter. The data comes from the [place] facility where the Encounter took place. Date/Time Smoking Status/Tobacco Use Comment F acility Nov 19, 2022 01:30 PM VA-TOBACCO NEVER USED [place] Oct 03, 2021 10:00 AM VA-TOBACCO NEVER USED [place] Nov 01, 2020 11:00 AM VA-TOBACCO NEVER USED [place] Oct 03, 2018 01:10 PM VA-TOBACCO NEVER USED [place] Apr 19, 2017 02:22 PM LIFETIME NON-TOBACCO USER [place] Jan 03, 2016 02:36 PM LIFETIME NON-TOBACCO USER [place] Feb 10, 2013 03:39 PM LIFETIME NON-TOBACCO USER [place] Advance Directives: All historical and current Section Date Range: From patient's date of to the date document was created. This section includes ALL of a patient's completed or amended [place] Advance and Rescinded Directives. The entries below indicate that a directive exists for the patient, but an actual copy is not included with this document. The data comes from all [place] facilities. Date Advance Directives Provider Source Jul 02, 2024 ADVANCE DIRECTIVE DISCUSSION CORNEL[facility]OREYNALDO N [place] [facility] Apr 14, 2014 ADVANCE DIRECTIVE DISCUSSION ESTELA FLOR[facility] Encounter Notes: All associated encounter notes This section contains the clinical notes associated to the Encounter. Date/Time Encounter Note(s) Provider Source Dec 15, 2024 03:57 PM ADDENDUM: LOCAL TITLE: Addendum STANDARD TITLE: ADDENDUM DATE OF NOTE: DEC 15, 2024@15:57:59 ENTRY DATE: DEC 15, 2024@15:58 AUTHOR: PAYTON GEORGE EXP COSIGNER: URGENCY: STATUS: COMPLETED RTC for 12/22@3pm /carole/ PAYTON GEORGE CLINICAL PSYCHOLOGIST Signed: 12/15/2024 15:58 Receipt Acknowledged By: 12/16/2024 07:50 /carole/ Cintia Grullon [employer]VANCED ENGRAVER RUBBER --- Original Document --- 12/15/24 [place] VIDEO CONNECT PSYCHOLOGY NOTE: INFORMED CONSENT REVIEWED: At beginning of session reviewed rights and limits of confidentiality, mandatory reporting situations, duty to warn and protect, [place] Warning, (if treatment team finds patient to be an acute danger to himself or others, that this information could be relayed to a court of law and presented to a district associate judge), and DOD access for active duty service members. Provided Suicide Prevention Hotline number, and other contact numbers as necessary. VISIT DURATION Other: 50 identified with 2 identifiers: Full Name, Facial Recognition DIAGNOSES: MDD, recurrent, severe, without psychotic features, [employer] STATEMENT OF GOALS/CONCERNS: would like to live on her own in [place] and not be experiencing the anxiety that she does. SESSION FOCUS: Aura was again joined by her mother in session, who states that she likes to join so she can better understand her daughter and what she's dealing with and had a few questions to ask. We began by talking about how it went trying the cognitive defusion exercise (leaves on a stream) and she said she tried it a handful of times (10 minute exercise) and she doesn't think it made a huge difference but it was very difficult to do, stating that she has a lot of big feelings to put on the leaves, too. [employer] wondered if she'd tried the ice TIPP skill and she said she did try it once and conventional underwriter encouraged her to use both skills but that leaves on a stream are supposed to be for distancing from the thoughts which are the drivers of those big emotions. We talked about the TMS referral and the mother expressed that they haven't heard anything yet about that and to give her a number for her to call to follow up. [employer] explained that the referral needs to be processed and this can take a bit of time, but that conventional underwriter will reach out to the preson handling those referrals to try to expedite and will let them know when they can call to schedule. [employer] did try to engage the mother and in a discussion of the purpose and usefulness of her role in these sessions and conventional underwriter reflected that when the mother joins sessions, the focus tend to be taken off the and more on the anxiety that the mother has about her and she takes the mobile lounge driver's seat. [employer] tried to validate that I see that the reason is because she loves her daughter and is very worried about her and wants her to feel better and she's trying to advocate for her but wonders if this is therapeutic. [employer] tried to engage aura in what she wants but she was fairly passive in her response it's ok if she's here but not able to speak to whether it's actively helpful or not. Aura's mother asked for family therapy or for conventional underwriter to give her therapy and conventional underwriter expressed that therapy for the mother would be extremely helpful but that this should be done in the community with a provider that is there to support her and states that family therapy with the and her mother is not what conventional underwriter sees as most helpful to the -- especially given the goal of becoming more independent and developing more skills toward that end. 's mother abruptly left the session at this point and conventional underwriter continued the session with and tried to focus on the skills and how to interrupt rumination with distraction/scheduling activities. We brainstormed a list of things that she could use for distraction. [employer] checked in about the DBT referral and she states that she talked to someone at [facility], who said she is able to participate in their program but that it's twice a week in [place]. We agreed that the plan that made the most sense is to start with TMS and then start DBT when she doesn't have so many weekly appointments for TMS (after a month). INTERVENTIONS: Psychotherapeutic Interventions: Reinforcing DBT skills and treatment planning ASSESSMENT: BRIEF ASSESSMENT OF MENTAL STATUS: 1. Appearance (grooming, attire, apparent age) within normal limits: Yes 2. Thought content was organized and goal directed: No very ruminative and negative and difficult to disrupt this pattern 3. Speech was coherent and unimpaired: Yes 4. Affect was appropriate and unremarkable: Yes 5. Demeanor was calm, with no signs of agitation or restlessness: Yes 6. Sleep was largely unimpaired and restful: Yes 7. No evidence of psychosis (hallucinations or delusions): Yes 8. Mood was normal: No Other Observations: RISK ASSESSMENT: Evidence of suicidal ideation: passive SI without plan or intent PLAN FOR FOLLOW-UP: Next session planned for: 12/22@3pm Other Scheduled visits: Future Clinic Visits 01/01/2025 13:30 CWM/SO/VVC/MHC/PSYTR 1 PM [facility] ([facility]) Standard Documentation [facility] Clinician Resources Only: E911 (Emergency Call Relay Center): [phone] National Veterans Crisis Line - 988 then press #1. [place] Suicide Coordinator [phone], Ext. [phone]; Back-up Ext. [phone] [place] Police, Marlo PADILLA [phone] Introduction: Visit is being conducted by [facility]. [place] identified with 2 identifiers: [X] Full Name [X] Date of [ ] [place] ID Card Emergency Plan: [place] confirmed and/or provided the following information in case of emergency or technology failure. PATIENT PHONE - PHONE NUMBER [CELLULAR] - Is patient phone number correct, if not, enter below: [place]'s phone number: STEPH Gutier[address] [place], [place], [address] 's present location and address for appointment: see above 's emergency contact name and phone number: see cover [place] reported that location is private and safe: Yes Informed Consent: [place] informed of the risks and benefits of Telehealth video care. [place] has the right to refuse video services. If refuses video visit, a [id number] visit will be scheduled. verbalized consent for this video visit: Yes provided consent for any other persons present for visit: Yes If yes, who and relationship to patient:mother Secure visit: Visit was locked for security and privacy:Yes /carole/ PAYTON GEORGE CLINICAL PSYCHOLOGIST Signed: 12/15/2024 15:25 PAYTON GEORGE [place] Dec 15, 2024 02:16 PM TELEHEALTH NOTE: LOCAL TITLE: [place] VIDEO CONNECT PSYCHOLOGY NOTE STANDARD TITLE: TELEHEALTH NOTE DATE OF NOTE: DEC 15, 2024@14:16 ENTRY DATE: DEC 15, 2024@14:16:19 AUTHOR: PAYTON GEORGE EXP COSIGNER: URGENCY: STATUS: COMPLETED [place] VIDEO CONNECT PSYCHOLOGY NOTE Has ADDENDA INFORMED CONSENT REVIEWED: At beginning of session reviewed rights and limits of confidentiality, mandatory reporting situations, duty to warn and protect, [place] Warning, (if treatment team finds patient to be an acute danger to himself or others, that this information could be relayed to a court of law and presented to a district associate judge), and DOD access for active duty service members. Provided Suicide Prevention Hotline number, and other contact numbers as necessary. VISIT DURATION Other: 50 identified with 2 identifiers: Full Name, Facial Recognition DIAGNOSES: MDD, recurrent, severe, without psychotic features, [employer] STATEMENT OF GOALS/CONCERNS: Aura would like to live on her own in [place] and not be experiencing the anxiety that she does. SESSION FOCUS: Aura was again joined by her mother in session, who states that she likes to join so she can better understand her daughter and what she's dealing with and had a few questions to ask. We began by talking about how it went trying the cognitive defusion exercise (leaves on a stream) and she said she tried it a handful of times (10 minute exercise) and she doesn't think it made a huge difference but it was very difficult to do, stating that she has a lot of big feelings to put on the leaves, too. [employer] wondered if she'd tried the ice TIPP skill and she said she did try it once and conventional underwriter encouraged her to use both skills but that leaves on a stream are supposed to be for distancing from the thoughts which are the drivers of those big emotions. We talked about the TMS referral and the mother expressed that they haven't heard anything yet about that and to give her a number for her to call to follow up. [employer] explained that the referral needs to be processed and this can take a bit of time, but that conventional underwriter will reach out to the preson handling those referrals to try to expedite and will let them know when they can call to schedule. [employer] did try to engage the mother and in a discussion of the purpose and usefulness of her role in these sessions and conventional underwriter reflected that when the mother joins sessions, the focus tend to be taken off the and more on the anxiety that the mother has about her and she takes the mobile lounge driver's seat. [employer] tried to validate that I see that the reason is because she loves her daughter and is very worried about her and wants her to feel better and she's trying to advocate for her but wonders if this is therapeutic. [employer] tried to engage in what she wants but she was fairly passive in her response it's ok if she's here but not able to speak to whether it's actively helpful or not. [place]'s mother asked for family therapy or for conventional underwriter to give her therapy and conventional underwriter expressed that therapy for the mother would be extremely helpful but that this should be done in the community with a provider that is there to support her and states that family therapy with the and her mother is not what conventional underwriter sees as most helpful to the -- especially given the goal of becoming more independent and developing more skills toward that end. 's mother abruptly left the session at this point and conventional underwriter continued the session with and tried to focus on the skills and how to interrupt rumination with distraction/scheduling activities. We brainstormed a list of things that she could use for distraction. [employer] checked in about the DBT referral and she states that she talked to someone at [facility], who said she is able to participate in their program but that it's twice a week in [place]. We agreed that the plan that made the most sense is to start with TMS and then start DBT when she doesn't have so many weekly appointments for TMS (after a month). INTERVENTIONS: Psychotherapeutic Interventions: Reinforcing DBT skills and treatment planning ASSESSMENT: BRIEF ASSESSMENT OF MENTAL STATUS: 1. Appearance (grooming, attire, apparent age) within normal limits: Yes 2. Thought content was organized and goal directed: No very ruminative and negative and difficult to disrupt this pattern 3. Speech was coherent and unimpaired: Yes 4. Affect was appropriate and unremarkable: Yes 5. Demeanor was calm, with no signs of agitation or restlessness: Yes 6. Sleep was largely unimpaired and restful: Yes 7. No evidence of psychosis (hallucinations or delusions): Yes 8. Mood was normal: No Other Observations: RISK ASSESSMENT: Evidence of suicidal ideation: passive SI without plan or intent PLAN FOR FOLLOW-UP: Next session planned for: 12/22@3pm Other Scheduled visits: Future Clinic Visits 01/01/2025 13:30 CWM/SO/VVC/MHC/PSYTR 1 PM [facility] [employer] [facility] ([facility]) Standard Documentation [facility] Clinician Resources Only: E911 (Emergency Call Relay Center): [phone] National Veterans Crisis Line - [address] [facility] Suicide Coordinator [phone], Ext. [phone]; Back-up Ext. [phone] [place] Police, Marlo PADILLA [phone] Introduction: Visit is being conducted by [facility]. identified with 2 identifiers: [X] Full Name [X] Date of [ ] [place] ID Card Emergency Plan: confirmed and/or provided the following information in case of emergency or technology failure. PATIENT PHONE - PHONE NUMBER [CELLULAR] - Is patient phone number correct, if not, enter below: 's phone number: STE[address] GRULLON [place], [place], [address] 's present location and address for appointment: see above [place]'s emergency contact name and phone number: see cover [place] reported that location is private and safe: Yes Informed Consent: informed of the risks and benefits of Telehealth video care. [place] has the right to refuse video services. If refuses video visit, a [id number] visit will be scheduled. verbalized consent for this video visit: Yes [place] provided consent for any other persons present for visit: Yes If yes, who and relationship to patient:mother Secure visit: Visit was locked for security and privacy:Yes /carole/ PAYTON GEORGE CLINICAL PSYCHOLOGIST Signed: 12/15/2024 15:25 12/15/2024 ADDENDUM STATUS: COMPLETED RTC for 12/22@3pm /carole/ PAYTON GEORGE CLINICAL PSYCHOLOGIST Signed: 12/15/2024 15:58 Receipt Acknowledged By: * AWAITING SIGNATURE * CINTIA GRULLON CHRISTINE G [place]
--- OUTSIDE RECORDS SUMMARY | 2024-12-28 15:10 | XMS_ITS | Encounter Summary ---
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 Date/Time Encounter Type Encounter Description Reason Provider Source Dec 22, 2024 03:00 PM PSYTX W PT 45 [facility]UTES [facility] - IND ICD-10-CM F33.2 Major depressv disorder, recurrent severe w/o psych features DAYLIN GEORGE Dwight Encounter Template Text not used by [place] Assessments - Encounter Diagnoses This section includes the primary and secondary diagnoses documented for the Encounter. Date/Time Primary/Secondary Diagnosis Diagnosis Name Provider Source Dec 22, 2024 04:11 PM PRIMARY Major depressv disorder, recurrent severe w/o psych features AMADEO GEORGE [facility]UCAS Dec 22, 2024 04:11 PM SECONDARY Generalized anxiety disorder AMADEO GEORGE LUCAS Plan of Treatment: Future Appointments (+ 6 months) and Future Tests (+/- 45 days) The Plan of Treatment section includes future care activities for the patient from all [place] treatmentfacilities. This section includes future appointments and [...] 01, 2025 01:30 PM AMBULATORY - PSYCHIATRY [facility] Jan 07, 2025 01:00 PM AMBULATORY - PSYCHIATRY [facility] Feb 12, 2025 10:30 AM [facility] Active, Pending, and Scheduled Orders This section includes a listing of several types of active, pending, and scheduled orders, including clinic medications orders, diagnostic test orders, procedure orders and consult orders; where the start date of the order is 45 days before the date of the Encounter or 45 days after the date of theEncounter. The data comes from all [facility]. Test Date/Time Test Type Test Details Facility Name Dec 11, 2024 11:46 AM Consult Order [facility] Cons Control Valve Mechanic's Choice [facility] Social History: Smoking Status (Most current) and Tobacco Use (All prior to encounter date) This section includes the most current, and the historical, smoking and tobacco- related health factors from the [place] facility where the Encounter took place. Current Smoking Status This section includes the most current smoking, or tobacco-related health factor, from the [place] facility where the Encounter took place. Date/Time Current Smoking Status Comment [facility] Feb 07, 2024 04:00 PM VA-TOBACCO NEVER USED [facility] Tobacco Use History This section includes a history of the smoking, or tobacco-related health factors, that were collected on or before the date of the Encounter. The data comes from the [place] facility where the Encounter took place. Date/Time Smoking Status/Tobacco Use Comment F acility Nov 19, 2022 01:30 PM VA-TOBACCO NEVER USED [facility] Oct 03, 2021 10:00 AM VA-TOBACCO NEVER USED [facility] Nov 01, 2020 11:00 AM VA-TOBACCO NEVER USED [facility] Oct 03, 2018 01:10 PM VA-TOBACCO NEVER USED [facility] Apr 19, 2017 02:22 PM LIFETIME NON-TOBACCO USER [facility] Jan 03, 2016 02:36 PM LIFETIME NON-TOBACCO USER [facility] Feb 10, 2013 03:39 PM LIFETIME NON-TOBACCO USER [facility] Advance Directives: All historical and current Section Date Range: From patient's date of to the date document was created. This section includes ALL of a patient's completed or amended [place] Advance and Rescinded Directives. The entries below indicate that a directive exists for the patient, but an actual copy is not included with this document. The data comes from all [place] facilities. Date Advance Directives Provider Source Jul 02, 2024 ADVANCE DIRECTIVE DISCUSSION REYNALDO GRIMES Alan [place] [facility] Apr 14, 2014 ADVANCE DIRECTIVE DISCUSSION ESTELA FLORENCE [facility] Encounter Notes: All associated encounter notes This section contains the clinical notes associated to the Encounter. Date/Time Encounter Note(s) Provider Source Dec 22, 2024 04:19 PM ADDENDUM: LOCAL TITLE: Addendum STANDARD TITLE: ADDENDUM DATE OF NOTE: DEC 22, 2024@16:19:50 ENTRY DATE: DEC 22, 2024@16:19:50 AUTHOR: PAYTON GEORGE COSIGNER: URGENCY: STATUS: COMPLETED RTC for 12/31@1pm /carole/ PAYTON GEORGE CLINICAL PSYCHOLOGIST Signed: 12/22/2024 16:20 Receipt Acknowledged By: 12/23/2024 10:24 /es/ Cintia Grullon ADVANCED DESIZING PAD OPERATOR --- Original Document --- 12/22/24 [place] VIDEO CONNECT PSYCHOLOGY NOTE: INFORMED CONSENT REVIEWED: At beginning of session reviewed rights and limits of confidentiality, mandatory reporting situations, duty to warn and protect, [place] Warning, (if treatment team finds patient to be an acute danger to himself or others, that this information could be relayed to a court of law and presented to a cycle touring guide), and DOD access for active duty service members. Provided Suicide Prevention Hotline number, and other contact numbers as necessary. VISIT DURATION Other: 50 [place] identified with 2 identifiers: Full Name, Facial Recognition DIAGNOSES: MDD, recurrent, severe, [employer] STATEMENT OF GOALS/CONCERNS: with very ruminative depression wanting to work on getting back into a better place but struggling to improve with routine outpatient care. SESSION FOCUS: WE continue to talk about higher levels of care to include TMS and DBT and she shares that she spoke with someone at [facility] who said that they would be able to get her in without too long of a wait. 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 Practical Nurse Clinical Coordinator wonders if TMS and DBT allowed her to work toward independence and gainful employment, would she do it. She said yes. 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 Practical Nurse Clinical Coordinator reflect her repeated statements about how much she hates having down time, so that being busier might be a good thing for her and it's just a matter of fitting the pieces together. She shared that her friend had found a potential pharmacy buyer for the house in [place] but she is not yet certain if it will work out but she's hopeful. Practical Nurse Clinical Coordinator encouraged her to continue using leaves on a stream and ice/cold water when she's in very heightened distress. INTERVENTIONS: Psychotherapeutic Interventions: active listening, validation, reminder of distress tolerance skills ASSESSMENT: BRIEF ASSESSMENT OF MENTAL STATUS: 1. Appearance (grooming, attire, apparent age) within normal limits: Yes 2. Thought content was organized and goal directed: Yes 3. Speech was coherent and unimpaired: Yes 4. Affect was appropriate and unremarkable: Yes 5. Demeanor was calm, with no signs of agitation or restlessness: Yes 6. Sleep was largely unimpaired and restful: No somewhat improved on seroquel-- but just took one night 7. No evidence of psychosis (hallucinations or delusions): Yes 8. Mood was normal: No depressed anxious Other Observations: RISK ASSESSMENT: Evidence of suicidal ideation: passive wish, denies active SI, plan or intent PLAN FOR FOLLOW-UP: Next session planned for: 12/31@1pm Other Scheduled visits: Future Clinic Visits 01/01/2025 13:30 CWM/SO/VVC/MHC/PSYTR 1 PM 02/12/2025 10:30 [facility] PACT 7 PROFESSOR OF SURGERY [place] [facility] ([facility]) Standard Documentation [facility] Clinician Resources Only: E911 (Emergency Call Relay Center): [phone] [facility] Crisis Line - 988 then press #1. [facility] Suicide Coordinator [phone], Ext. [phone]; Back-up Ext. [phone] [place] Police, Marlo PADILLA [phone] Introduction: Visit is being conducted by [place] [employer]. [place] identified with 2 identifiers: [X] Full Name [X] Date of [ ] [place] ID Card Emergency Plan: [place] confirmed and/or provided the following information in case of emergency or technology failure. PATIENT PHONE - PHONE NUMBER [CELLULAR] - Is patient phone number correct, if not, enter below: [place]'s phone number: STEPH CABRERA NAT [address] [place] [address], [address] [place]'s present location and address for appointment: See above 's emergency contact name and phone number: See cover [place] reported that location is private and safe: Yes Informed Consent: [place] informed of the risks and benefits of Telehealth video care. [place] has the right to refuse video services. If refuses video visit, a [id number] visit will be scheduled. [place] verbalized consent for this video visit: Yes [place] provided consent for any other persons present for visit: N/A If yes, who and relationship to patient: Secure visit: Visit was locked for security and privacy:Yes /carole/ PAYTON GEORGE CLINICAL PSYCHOLOGIST Signed: 12/22/2024 16:19 PAYOTN GEORGE LUCAS Dec 22, 2024 04:08 PM TELEHEALTH NOTE: LOCAL TITLE: [place] VIDEO CONNECT PSYCHOLOGY NOTE STANDARD TITLE: TELEHEALTH NOTE DATE OF NOTE: DEC 22, 2024@16:08 ENTRY DATE: DEC 22, 2024@16:08:57 AUTHOR: PAYTON GEORGE EXP COSIGNER: URGENCY: STATUS: COMPLETED [place] VIDEO CONNECT PSYCHOLOGY NOTE Has ADDENDA INFORMED CONSENT REVIEWED: At beginning of session reviewed rights and limits of confidentiality, mandatory reporting situations, duty to warn and protect, [place] Warning, (if treatment team finds patient to be an acute danger to himself or others, that this information could be relayed to a court of law and presented to a cycle touring guide), and DOD access for active duty service members. Provided Suicide Prevention Hotline number, and other contact numbers as necessary. VISIT DURATION Other: 50 identified with 2 identifiers: Full Name, Facial Recognition DIAGNOSES: MDD, recurrent, severe, [employer] STATEMENT OF GOALS/CONCERNS: with very ruminative depression wanting to work on getting back into a better place but struggling to improve with routine outpatient care. SESSION FOCUS: WE continue to talk about higher levels of care to include TMS and DBT and she shares that she spoke with someone at [facility] who said that they would be able to get her in without too long of a wait. 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 Practical Nurse Clinical Coordinator wonders if TMS and DBT allowed her to work toward independence and gainful employment, would she do it. She said yes. 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 Practical Nurse Clinical Coordinator reflect her repeated statements about how much she hates having down time, so that being busier might be a good thing for her and it's just a matter of fitting the pieces together. She shared that her friend had found a potential pharmacy buyer for the house in [place] but she is not yet certain if it will work out but she's hopeful. Practical Nurse Clinical Coordinator encouraged her to continue using leaves on a stream and ice/cold water when she's in very heightened distress. INTERVENTIONS: Psychotherapeutic Interventions: active listening, validation, reminder of distress tolerance skills ASSESSMENT: BRIEF ASSESSMENT OF MENTAL STATUS: 1. Appearance (grooming, attire, apparent age) within normal limits: Yes 2. Thought content was organized and goal directed: Yes 3. Speech was coherent and unimpaired: Yes 4. Affect was appropriate and unremarkable: Yes 5. Demeanor was calm, with no signs of agitation or restlessness: Yes 6. Sleep was largely unimpaired and restful: No somewhat improved on seroquel-- but just took one night 7. No evidence of psychosis (hallucinations or delusions): Yes 8. Mood was normal: No depressed anxious Other Observations: RISK ASSESSMENT: Evidence of suicidal ideation: passive wish, denies active SI, plan or intent PLAN FOR FOLLOW-UP: Next session planned for: 12/31@1pm Other Scheduled visits: Future Clinic Visits 01/01/2025 13:30 CWM/SO/VVC/MHC/PSYTR 1 PM 02/12/2025 10:30 [facility] PACT 7 PROFESSOR OF SURGERY [place] [employer] Connect ([facility]) Standard Documentation V[facility] Clinician Resources Only: E911 (Emergency Call Relay Center): [phone] [place] [employer] Crisis Line - 988 then press #1. [facility] Suicide Coordinator [phone], Ext. [phone]; Back-up Ext. [phone] [place] Police, Marlo PADILLA [phone] Introduction: Visit is being conducted by [place] [employer]. [place] identified with 2 identifiers: [X] Full Name [X] Date of [ ] [place] ID Card Emergency Plan: [place] confirmed and/or provided the following information in case of emergency or technology failure. PATIENT PHONE - PHONE NUMBER [CELLULAR] - Is patient phone number correct, if not, enter below: 's phone number: STEPH JOHNS [address], [place], [address] [place]'s present location and address for appointment: See above [place]'s emergency contact name and phone number: See cover reported that location is private and safe: Yes Informed Consent: informed of the risks and benefits of Telehealth video care. has the right to refuse video services. If refuses video visit, a [id number] visit will be scheduled. verbalized consent for this video visit: Yes [place] provided consent for any other persons present for visit: N/A If yes, who and relationship to patient: Secure visit: Visit was locked for security and privacy:Yes /carole/ PAYTON GEORGE CLINICAL PSYCHOLOGIST Signed: 12/22/2024 16:19 12/22/2024 ADDENDUM STATUS: COMPLETED RTC for 12/31@1pm /es/ PAYTON GEORGE CLINICAL PSYCHOLOGIST Signed: 12/22/2024 16:20 Receipt Acknowledged By: * AWAITING SIGNATURE * CINTIA GRULLON,PAYTON HUYNH
--- OUTSIDE RECORDS SUMMARY | 2024-12-28 15:10 | XMS_ITS | Encounter Summary ---
Author Name [facility] [place] Organization [facility] [place] [facility] [place] Address [address] [place] [address] Care Team Providers Care Banking Supervisor Name Role Phone ARCENIO SUTHERLAND Primary Care Provider Unavail able Selected Encounter This section includes the information on record at [place] for the Encounter. Date/Time Encounter Type Encounter Description Reason Provider Source Jun 30, 2024 11:00 AM [facility] ICD-10-CM F42.9 Obsessive-compul sive disorder, unspecified JUSTINA,SCO TT IHE Encounter Template Text not used by [place] Assessments - Encounter Diagnoses This section includes the primary and secondary diagnoses documented for the Encounter. Date/Time Primary/Secondary Diagnosis Diagnosis Name Provider Source Jun 30, 2024 11:00 AM PRIMARY Obsessive-compuls medhat disorder, unspecified HUGG,ELENA A [facility] Jun 30, 2024 11:00 AM SECONDARY Anorexia nervosa, restricting type CRISSY SANTOLIE A [facility] [place] [facility] Jun 30, 2024 11:00 AM SECONDARY Major depressive disorder, recurrent, in remission, unsp CRISSY SANTOLIE A [facility] Plan of Treatment: Future Appointments (+ 6 [...] AMBULATORY - PSYCHIATRY [facility] [place] [facility] Jul 08, 2024 10:00 AM AMBULATORY - PS[facility]CHIATRY [facility] [place] [facility] Jul 08, 2024 10:30 AM AMBULATORY - MEDICINE [facility] Jul 09, 2024 01:00 PM AMBULATORY - PS[facility]CHIATRY [facility] [place] [facility] Jul 10, 2024 10:00 AM AMBULATORY [place]RY [place] Jul 14, 2024 10:30 AM AMBULATORY - PSYCHIATRY [facility] Jul 17, 2024 09:00 AM AMBULATORY - PSYCHIATRY [facility] [place] [facility] Jul 17, 2024 10:00 AM AMBULATORY - [place]IATRY [place] Jul 23, 2024 09:30 AM AMBULATORY - PS[facility]CHIATRY [facility] [place] [facility] Jul 24, 2024 10:00 AM AMBULATORY [place]AT[place] Jul 24, 2024 10:45 AM AMBULATORY - NONE [facility] Jul 27, 2024 02:00 PM AMBULATORY - PS[facility]CHIATRY [facility] [place] [facility] Aug 05, 2024 01:00 PM AMBULATORY - PS[facility]CHIATRY [facility] [place] [facility] Aug 07, 2024 10:00 AM AMBULATORY - [facility]IATRY [place] Aug 11, 2024 07:30 PM AMBULATORY - PS[facility]CHIATRY [facility] [place] [facility] Aug 12, 2024 01:00 PM AMBULATORY - PSYCHIATRY [facility] [place] [facility] Aug 14, 2024 10:00 AM AMBULATORY - [place]IATRY [place] Aug 19, 2024 01:00 PM AMBULATORY - PS[facility]CHIATRY [facility] [place] [facility] Aug 20, 2024 09:15 AM AMBULATORY - NONE [facility] [place] [facility] Aug 21, 2024 03:00 PM AMBULATORY - MEDICINE [facility] [place] [facility] Active, Pending, and Scheduled Orders This [...] 10, 2024 12:00 AM Laboratory - Chemi [facility] [employer] Order HEPATITIS C ANTIBODY (HCV)-[facility] BLOOD (MARBLED-TOP SERUM) [facility] Aug 10, 2024 12:00 AM Laboratory - [employer]i [facility]Anna[employer] [employer] Order HEPATITIS B SURFACE ANTIBODY (HBsAb)- BLOOD (SST-SERUM) [facility] Lab Results: +/- 30 days of the encounter This section includes the Chemistry and Hematology Lab Results on record with [place] for the patient. Radiology Reports and Pathology Reports are provided separately, in subsequent sections. Lab Results This section contains the Chemistry/Hematology Results that were resulted 30 days before or 30 daysafter the date of the Encounter. Date/Time Source Result Type Result - Unit Interpretation Reference Range Comment Jul 03, 2024 11:00 AM [facility]BoxH[facility] COVID-19 SCREENING PANEL (CEPHEID) Specimen Type: NASOPHARYNX Comment: This test is authorized for emergency use only. False negative results may occur if virus is present at levels below the analytical limit of detection.Neg ative results do not preclude SARS-CoV-2 infection and should not be used as the sole basis for treatment or other patient management decisions.Cep heid FLUVID: HCPs: https://www. [place].gov/media/ 618746/downlo ad. Patients: https://www.f da.gov/media/ 909513/downlo ad Ordering Provider: DELMA SHAH Report Released Date/Time: Jul 03, 2024 12:29 PM Reporting Lab: [facility] [address] [facility] [address] Performing Lab: [facility] [address] [facility] [address] COVID-19 SCR (CEPHEID) NEGATIVE Negative Jun 22, 2024 08:19 AM [facility] RocksBoxUSENetVision [facility] HCG QUAL, URINE Specimen Type: URINE No comment entered. Ordering Provider: MIGUELANGEL MAHONEY Report Released Date/Time: Jun 22, 2024 08:18 AM Reporting Lab: [address] [address] Performing Lab: [address] [address] HCG QUAL, URINE NEGATIVE NEGATIVE Jun 22, 2024 07:03 AM [facility] HEMOGLOBIN A1C PANEL Specimen Type: BLOOD Comment: [...] Jun 19, 2024 11:44 AM Reporting Lab: [address] [address] Performing Lab: [address] [address] HEMOGLOBIN A1C 5.0 4.0-5.6 Jun 22, 2024 07:03 AM [facility] LIPID PANEL FASTING Specimen Type: SERUM No comment entered. Ordering Provider: MIGUELANGEL MAHONEY Report Released Date/Time: Jun 19, 2024 11:44 AM Reporting Lab: [address] [address] Performing Lab: [address] [address] CHOLESTEROL 218 mg/dL H TRIGLYCERIDE 81 mg/dL 0-150 LDL calculated 142 mg/dL H 0-129 CHOL/HDL 3.6 HDL CHOLESTEROL 60 mg/dL 40-60 Jun 22, 2024 07:00 AM [facility] CALCIUM Specimen Type: SERUM No comment entered. Ordering Provider: MIGUELANGEL MAHONEY Report Released Date/Time: Jun 22, 2024 08:24 AM Reporting Lab: [address] [address] Performing Lab: [facility] [address] [facility] [address] CALCIUM 9.6 mg/dL 8.5-10.2 Jun 22, 2024 07:00 AM [facility] BASIC METABOLIC PANEL (non-fasting) Specimen Type: SERUM No comment entered. Ordering Provider: MIGUELANGEL MAHONEY Report Released Date/Time: Jun 22, 2024 02:03 PM Reporting Lab: [facility] [address] [facility] [address] Performing Lab: [facility] [address] [facility] [address] UREA NITROGEN 19 mg/dL 7-25 GLUCOSE 109 mg/dL H 65-100 SODIUM 139 mmol/L 135-145 POTASSIUM 4.5 mmol/L 3.5-5.0 CHLORIDE 104 mmol/L 100-110 CO2 24 meq/L 20-30 CREATININE, Serum 0.89 mg/dL 0.50-1.40 eGFR(CKD-EPI 2020) 85 mL/min >60 Jun 18, 2024 03:08 PM [facility] COVID-19 MONITOR PANEL (CEPHEID) Specimen Type: NASOPHARYNX Comment: This test is authorized for emergency use only. False negative results may occur if virus is present at levels below the analytical limit of detection.Neg ative results do not preclude SARS-CoV-2 infection and should not be used as the sole basis for treatment or other patient management decisions.Cep heid FLUVID: HCPs: https://www. da.gov/media/ 603625/downlo ad. Patients: https://www. da.gov/media/ 688775/downlo ad Ordering Provider: DELMA SHAH Report Released Date/Time: Jun 18, 2024 03:05 PM Reporting Lab: [facility] [address] [facility] [address] Performing Lab: [address] [address] COVID-19 CITLALLI (CEPHEID) NEGATIVE Negative Jun 18, 2024 02:41 PM [facility] ETHANOL Specimen Type: PLASMA No comment entered. Ordering Provider: DELMA SHAH Report Released Date/Time: Jun 18, 2024 02:30 PM Reporting Lab: [address] [address] Performing Lab: [address] [address] ETHANOL <10 mg/dL Jun 18, 2024 02:41 PM [facility] BASIC METABOLIC PANEL (non-fasting) Specimen Type: SERUM No comment entered. Ordering Provider: DELMA SHAH Report Released Date/Time: Jun 18, 2024 02:30 PM Reporting Lab: [address] [address] Performing Lab: [address] [address] UREA NITROGEN 18 mg/dL 7-25 GLUCOSE 110 mg/dL H 65-100 SODIUM 137 mmol/L 135-145 POTASSIUM 3.9 mmol/L 3.5-5.0 CHLORIDE 103 mmol/L 100-110 CO2 29 meq/L 20-30 CREATININE, Serum 0.84 mg/dL 0.50-1.40 eGFR(CKD-EPI 2020) >90 mL/min >60 Jun 18, 2024 02:41 PM [facility] LIVER FUNCTION Specimen Type: SERUM No comment entered. Ordering Provider: DELMA SHAH Report Released Date/Time: Jun 18, 2024 02:30 PM Reporting Lab: [address] [address] Performing Lab: [address] [address] PROTEIN,TOTAL 7.1 g/dL 6.0-8.3 ALBUMIN 4.2 g/dL 3.5-5.0 ALKALINE PHOSPHATASE 46 U/L 40-150 AST 10 U/L 5-34 ALT 11 U/L BILIRUBIN, TOTAL 0.3 mg/dL 0.2-1.2 Jun 18, 2024 02:41 PM [facility] CBC AND DIFF (AUTO) Specimen Type: BLOOD No comment entered. Ordering Provider: DELMA SHAH Report Released Date/Time: Jun 18, 2024 02:30 PM Reporting Lab: [facility] [address] [facility] [address] Performing Lab: [facility] [address] [facility] [address] WBC 7.32 10*3/uL 4.50-11.00 RBC 4.08 10*6/uL [...] 10*3/uL 0.00-0.00 Jun 18, 2024 02:41 PM [facility] DRUGS OF ABUSE Specimen Type: URINE Comment: [...] Jun 18, 2024 02:30 PM Reporting Lab: [facility] [address] [facility] [address] Performing Lab: [address] [address] AMPHETAMINES SCREEN NONE-DETECTED None-Detec domo, Cutoff = [...] ng/mL ALCOHOL, ETHYL URINE NONE-DETECTED mg/dL NONE-DETEC DOMO, cutoff = 10 mg/dL FENTANYL SCREEN NONE-DETECTE D ng/mL Negative: Cutoff = 1.00 ng/mL PH, DONAVAN 6.8 [pH] 4-10 CREATININE, DONAVAN 92.76 mg/dL >20 SP.GRAVITY, DONAVAN 1.019 1.00 3-1.02 0 Jun 18, 2024 02:41 PM [facility] FOLATE (WROX) Specimen Type: SERUM Comment: Specimen Icteric Ordering Provider: MIGUELANGEL MAHONEY Report Released Date/Time: Jun 19, 2024 12:16 PM Reporting Lab: [facility] [address] [facility] [address] Performing Lab: [facility] [address] [facility] [address] FOLATE (WROX) 15.03 ng/mL >5.2 Jun 18, 2024 02:41 PM [facility] VITAMIN B12 Specimen Type: SERUM No comment entered. Ordering Provider: MIGUELANGEL MAHONEY Report Released Date/Time: Jun 19, 2024 12:16 PM Reporting Lab: [facility] [address] [facility] [address] Performing Lab: [facility] SERVICESRSPRINGHILL [facility]ERN [facility]ITALUSETS [facility] [address] [facility] [address] VITAMIN B12 1281 pg/mL H 200-900 Jun 18, 2024 02:41 PM [facility] TSH Specimen Type: SERUM No comment entered. Ordering Provider: MIGUELANGEL MAHONEY Report Released Date/Time: Jun 19, 2024 12:16 PM Reporting Lab: [facility] [address] [facility] [address] Performing Lab: [facility] [address] [address] TSH 3.52 u[IU]/mL 0.35-5.00 Jun 18, 2024 02:41 PM [facility] VITAMIN D (25-OH) Specimen Type: SERUM No comment entered. Ordering Provider: MIGUELANGEL MAHONEY Report Released Date/Time: Jun 19, 2024 12:16 PM Reporting Lab: [facility] [address] [facility] [address] Performing Lab: [facility] SERVICESRSPRINGH[facility]ERN [facility]PITALUSETS [address] [address] VITAMIN D (25-OH) 52 ng/mL H 20-50 Vital Signs: All taken on the encounter date This section contains inpatient and outpatient Vital Signs collected on the date of the Encounter. Date/Time Temperature Pulse Blood Pressure Respiratory Rate SP02 Pain Height Weight Body Mass Index Source Jun 30, 2024 08:23 PM 98 72 109/65 16 99 [facility] [place] [facility] Jun 30, 2024 08:26 AM 97.5 94 90/61 16 99 [facility] [place] [facility] Jun 30, 2024 07:21 AM 97.3 [facility] [place] [facility] Advance Directives: All historical and current [...] 02, 2024 ADVANCE DIRECTIVE DISCUSSION REYNALDO GRIMES [place] [facility] [place] [facility] Apr 14, 2014 ADVANCE DIRECTIVE DISCUSSION ESTELA FLORENCE [facility]
--- OUTSIDE RECORDS SUMMARY | 2024-12-28 15:10 | XMS_ITS | Encounter Summary ---
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 Date/Time Encounter Type Encounter Description Reason Provider Source Dec 09, 2024 10:00 AM FAMILY PSYTX W/PT [facility] - IND ICD-10-CM F33.1 Major depressive disorder, recurrent, moderate DAYLIN GEORGE Dwight Encounter Template Text not used by [place] Assessments - Encounter Diagnoses This section includes the primary and secondary diagnoses documented for the Encounter. Date/Time Primary/Secondary Diagnosis Diagnosis Name Provider Source Dec 09, 2024 11:29 AM PRIMARY Major depressive disorder, recurrent, moderate AMADEO GEORGE [place] Dec 09, 2024 11:29 AM SECONDARY Generalized anxiety disorder AMADEO GEORGE [place] Plan of Treatment: Future Appointments (+ 6 months) and Future Tests (+/- 45 days) The Plan of Treatment section includes future care activities for the patient from all [place] treatmentfacilities. This section includes future appointments and future orders which are active, pending or scheduled. Future Appointments This section includes appointments that were scheduled to occur 6 months from the date of the Encounter, up to a maximum of 20 appointments. The data comes from all [place] treatment facilities. Appointment Date/Time Appointment Type Appointme nt Facility Name Dec 11, 2024 11:00 AM AMBULATORY - [place]IATRY [facility] [place] [facility] Dec 15, 2024 01:00 PM AMBULATORY - PS[facility]CHIATRY [facility] [place] [facility] Dec 22, 2024 03:00 PM AMBULATORY - PSYCHIATRY [facility] [place] [facility] Jan 01, 2025 01:30 PM AMBULATORY - PSYCHIATRY [facility] [place] [facility] Jan 07, 2025 01:00 PM AMBULATORY - PS[facility]CHIATRY [facility] [place] [facility] Feb 12, 2025 10:30 AM AMBULATORY - [...] of theEncounter. The data comes from all [place] treatment facilities. Test Date/Time Test Type Test Details Facility Name Dec 11, 2024 11:46 AM Consult Order [facility] Cons [facility]ink[facility] Social History: Smoking Status (Most current) and Tobacco Use (All prior to encounter date) This section includes the most current, and the historical, smoking and tobacco- related health factors from the [place] facility where the Encounter took place. Current Smoking Status This section includes the most current smoking, or tobacco-related health factor, from the [place] facility where the Encounter took place. Date/Time Current Smoking Status Comment Hima horn Feb 07, 2024 04:00 PM VA-TOBACCO NEVER USED [place] Tobacco Use History This section includes a history of the smoking, or tobacco-related health factors, that were collected on or before the date of the Encounter. The data comes from the [place] facility where the Encounter took place. Date/Time Smoking Status/Tobacco Use Comment Marina sandhu Nov 19, 2022 01:30 PM VA-TOBACCO NEVER USED [place] Oct 03, 2021 10:00 AM VA-TOBACCO NEVER USED [place] [facility] Nov 01, 2020 11:00 AM VA-TOBACCO NEVER USED [place] Oct 03, 2018 01:10 PM VA-TOBACCO NEVER USED [place] Apr 19, 2017 02:22 PM LIFETIME NON-TOBACCO USER [place] Jan 03, 2016 02:36 PM LIFETIME NON-TOBACCO USER [place] Feb 10, 2013 03:39 PM LIFETIME NON-TOBACCO USER [place] Advance Directives: All historical and current Section Date Range: From patient's date of to the date document was created. This section includes ALL of a patient's completed or amended [place] Advance and Rescinded Directives. The entries below indicate that a directive exists for the patient, but an actual copy is not included with this document. The data comes from all [place] facilities. Date Advance Directives Provider Source Jul 02, 2024 ADVANCE DIRECTIVE DISCUSSION REYNALDO GRIMES [place] [facility] [place] [facility] Apr 14, 2014 ADVANCE DIRECTIVE DISCUSSION ESTELA FLORENCE [facility] Encounter Notes: All associated encounter notes This section contains the clinical notes associated to the Encounter. Date/Time Encounter Note(s) Provider Source Dec 09, 2024 04:01 PM ADDENDUM: LOCAL TITLE: Addendum STANDARD TITLE: ADDENDUM DATE OF NOTE: DEC 09, 2024@16:01:43 ENTRY DATE: DEC 09, 2024@16:01:43 AUTHOR: PAYTON GEORGE EXP COSIGNER: URGENCY: STATUS: COMPLETED RTC for 2/4@1pm via [facility] /carole/ PAYTON GEORGE CLINICAL PSYCHOLOGIST Signed: 12/09/2024 16:01 Receipt Acknowledged By: 12/10/2024 07:32 /carole/ Cintia Grullon ADVANCED CROWNING HAMMER OPERATOR --- Original Document --- 12/09/24 [place] VIDEO CONNECT PSYCHOLOGY NOTE: INFORMED CONSENT REVIEWED: At beginning of session reviewed rights and limits of confidentiality, mandatory reporting situations, duty to warn and protect, [place] Warning, (if treatment team finds patient to be an acute danger to himself or others, that this information could be relayed to a court of law and presented to a line puller), and DOD access for active duty service members. Provided Suicide Prevention Hotline number, and other contact numbers as necessary. VISIT DURATION Other: 50 [place] identified with 2 identifiers: Full Name, Facial Recognition DIAGNOSES: MDD, recurrent, moderate, VENKAT VETER[employer] STATEMENT OF GOALS/CONCERNS: Aura would like to reduce pattern of negative thinking/rumination SESSION FOCUS: Aura was joined today by her mother, who will join sessions occasionally when she feels that she needs to push for different treatment and to express that they are not seeing treatment working and what are alternatives. Clinical Appeals Specialist did try to follow up on Nadine's use of leaves on a stream this week and how that worked for her. She shared that while she tried it 8 or 10 times, she did not do a guided meditation and would use it very briefly for one thought or one group of thought and then stop. Clinical Appeals Specialist shared that what would probably be more helpful in learning the skill is to sit somewhere quiet and engage in a guided meditation and suggested she search on [employer]. Clinical Appeals Specialist will mail this link, but it won't likely reach her for a few days. She agreed to try this. Clinical Appeals Specialist also sent her a link for paired muscle relaxation and she agreed to try this as well. Because aura's mother was on the session, we were not able to try this together in session. Aura's mother shared that the is still struggling significantly and she wants to advocate for a second opinion as far as a prescriber goes and pushes for EMDR for this . We had already talked about EMDR and had explained that time that it requires a great deal of distress tolerance which the doesn't have and given that specific traumas are not 's presenting problem, what makes more sense is for her to do a DBT program. had referred her to a program in the community in August and it became clear more recently that the hadn't followed up and the referral had languished for a while. She has since spoken to the provider (service net) but there is uncertainty about whether she's in their coverage area and someone is supposed to call her back about that. [place] and mother agreed that can follow up about this. Clinical Appeals Specialist also brought up the idea of ECT [...] things, and I'm the fragile one! . Clinical Appeals Specialist expressed understanding that what providers are asking of her is incredibly hard work and that undoing some of the thinking patterns she's held for a while takes a lot of practice and work to unravel. And for that reason, staff writer wondered if something like ECT or TMS might help and put her in a better place to start making those efforts in therapy. Clinical Appeals Specialist told her that I'd consult with a prescriber with more specialized knowledge of those interventions and also encoruaged her to talk to the psychiatrist. INTERVENTIONS: Psychotherapeutic Interventions: active listening, validation, DBT skill- thought defusion, Paired muscle relaxation, treatment planning ASSESSMENT: BRIEF ASSESSMENT OF MENTAL [...] Yes 8. Mood was normal: No depressed and anxious Other Observations: RISK ASSESSMENT: Evidence of suicidal ideation: chronic passive SI without active SI, plan or intent, no hx of behaviors PLAN FOR FOLLOW-UP: to practice paired muscle relaxation and leaves on a stream . Clinical Appeals Specialist also mailed worksheet on thought defusion and links to a guided meditation of leaves on a stream and information on the mindfulness college basketball coach heidy. Next session planned for: 12/15@1pm Other Scheduled visits: Future Clinic Visits 12/11/2024 11:00 [facility]/SO/[facility]/MHC/PSYTR 1 [facility] ([facility]) Standard Documentation [facility] Clinician Resources Only: E911 (Emergency Call Relay Center): [phone] National [employer] Crisis Line - 988 then press #1. [place] Suicide Coordinator [phone], Ext. [phone]; Back-up Ext. [phone] [place] Police, Marlo PADILLA [phone] Introduction: Visit is being conducted by [facility]. [place] identified with 2 identifiers: [X] Full Name [X] Date of [ ] [place] ID Card Emergency Plan: [place] confirmed and/or provided the following information in case of emergency or technology failure. PATIENT PHONE - PHONE NUMBER [CELLULAR] - Is patient phone number correct, if not, enter below: [place]'s phone number: NADINE JOHNS [address], [place], [address] 's present location and address for appointment: see above [place]'s emergency contact name and phone number: see cover [place] reported that location is private and safe: Yes Informed Consent: informed of the risks and benefits of Telehealth video care. [place] has the right to refuse video services. If refuses video visit, a [id number] visit will be scheduled. verbalized consent for this video visit: Yes provided consent for any other persons present for visit: Yes If yes, who and relationship to patient:mother was there and consented Secure visit: Visit was locked for security and privacy:Yes /es/ PAYTON GEORGE CLINICAL PSYCHOLOGIST Signed: 12/09/2024 16:01 PAYTON GEORGE [place] Dec 09, 2024 11:25 AM TELEHEALTH NOTE: LOCAL TITLE: [place] VIDEO CONNECT PSYCHOLOGY NOTE STANDARD TITLE: TELEHEALTH NOTE DATE OF NOTE: DEC 09, 2024@11:25 ENTRY DATE: DEC 09, 2024@11:25:37 AUTHOR: PAYTON GEORGE EXP COSIGNER: URGENCY: STATUS: COMPLETED [place] VIDEO CONNECT PSYCHOLOGY NOTE Has ADDENDA INFORMED CONSENT REVIEWED: At beginning of session reviewed rights and limits of confidentiality, mandatory reporting situations, duty to warn and protect, [place] Warning, (if treatment team finds patient to be an acute danger to himself or others, that this information could be relayed to a court of law and presented to a line puller), and DOD access for active duty service members. Provided Suicide Prevention Hotline number, and other contact numbers as necessary. VISIT DURATION Other: 50 [place] identified with 2 identifiers: Full Name, Facial Recognition DIAGNOSES: MDD, recurrent, moderate, [employer] STATEMENT OF GOALS/CONCERNS: would like to reduce pattern of negative thinking/rumination SESSION FOCUS: was joined today by her mother, who will join sessions occasionally when she feels that she needs to push for different treatment and to express that they are not seeing treatment working and what are alternatives. Clinical Appeals Specialist did try to follow up on Nadine's use of leaves on a stream this week and how that worked for her. She shared that while she tried it 8 or 10 times, she did not do a guided meditation and would use it very briefly for one thought or one group of thought and then stop. Clinical Appeals Specialist shared that what would probably be more helpful in learning the skill is to sit somewhere quiet and engage in a guided meditation and suggested she search on [employer]. Clinical Appeals Specialist will mail this link, but it won't likely reach her for a few days. She agreed to try this. Clinical Appeals Specialist also sent her a link for paired muscle relaxation and she agreed to try this as well. Because aura's mother was on the session, we were not able to try this together in session. 's mother shared that the is still struggling significantly and she wants to advocate for a second opinion as far as a prescriber goes and pushes for EMDR for this . We had already talked about EMDR and staff writer had explained that time that it requires a great deal of distress tolerance which the doesn't have and given that specific traumas are not 's presenting problem, what makes more sense is for her to do a DBT program. Clinical Appeals Specialist had referred her to a program in the community in August and it became clear more recently that the hadn't followed up and the referral had languished for a while. She has since spoken to the provider (service net) but there is uncertainty about whether she's in their coverage area and someone is supposed to call her back about that. [place] and mother agreed that can follow up about this. Clinical Appeals Specialist also brought up the idea of ECT [...] things, and I'm the fragile one! . Clinical Appeals Specialist expressed understanding that what providers are asking of her is incredibly hard work and that undoing some of the thinking patterns she's held for a while takes a lot of practice and work to unravel. And for that reason, staff writer wondered if something like ECT or TMS might help and put her in a better place to start making those efforts in therapy. Clinical Appeals Specialist told her that I'd consult with a prescriber with more specialized knowledge of those interventions and also encoruaged her to talk to the psychiatrist. INTERVENTIONS: Psychotherapeutic Interventions: active listening, validation, DBT skill- thought defusion, Paired muscle relaxation, treatment planning ASSESSMENT: BRIEF ASSESSMENT OF MENTAL [...] Yes 8. Mood was normal: No depressed and anxious Other Observations: RISK ASSESSMENT: Evidence of suicidal ideation: chronic passive SI without active SI, plan or intent, no hx of behaviors PLAN FOR FOLLOW-UP: [place] to practice paired muscle relaxation and leaves on a stream . Clinical Appeals Specialist also mailed worksheet on thought defusion and links to a guided meditation of leaves on a stream and information on the mindfulness college basketball coach heidy. Next session planned for: 12/15@1pm Other Scheduled visits: Future Clinic Visits 12/11/2024 11:00 [facility]/SO/VVC/MHC/PSYTR 1 [facility] ([facility]) Standard Documentation [facility] Clinician Resources Only: E911 (Emergency Call Relay Center): [phone] National Veterans Crisis Line - 988 then press #1. [facility] Suicide Coordinator [phone], Ext. [phone]; Back-up Ext. [phone] [place] Police, Marlo PADILLA [phone] Introduction: Visit is being conducted by [facility]. identified with 2 identifiers: [X] Full Name [X] Date of [ ] [place] ID Card Emergency Plan: confirmed and/or provided the following information in case of emergency or technology failure. PATIENT PHONE - PHONE NUMBER [CELLULAR] - Is patient phone number correct, if not, enter below: 's phone number: NADINE JOHNS [address], [place], [address] [place]'s present location and address for appointment: see above [place]'s emergency contact name and phone number: see cover reported that location is private and safe: Yes Informed Consent: informed of the risks and benefits of Telehealth video care. [place] has the right to refuse video services. If refuses video visit, a [id number]-[id number] visit will be scheduled. verbalized consent for this video visit: Yes [place] provided consent for any other persons present for visit: Yes If yes, who and relationship to patient:mother was there and consented Secure visit: Visit was locked for security and privacy:Yes /carole/ PAYTON GEORGE CLINICAL PSYCHOLOGIST Signed: 12/09/2024 16:01 12/09/2024 ADDENDUM STATUS: COMPLETED RTC for 2@1pm via [facility] /carole/ PAYTON GEORGE CLINICAL PSYCHOLOGIST Signed: 12/09/2024 16:01 Receipt Acknowledged By: * AWAITING SIGNATURE * CINTIA GRULLON CHRISTINE G [place]
--- OUTSIDE RECORDS SUMMARY | 2024-12-28 15:11 | XMS_ITS | Encounter Summary ---
Author Name [facility] [place] [facility] [place] Organization [facility] [place] Address [address] [place] [address] Care Team Providers Care Special Forces Senior Sergeant Name Role Phone JOE WADE Primary Care Provider Unavailabl e Selected Encounter This section includes the information on record at [place] for the Encounter. Date/Time Encounter Type Encounter Description Reason Provider Source Dec 03, 2024 01:00 PM PSYTX W PT 45 [facility] - IND ICD-10-CM F33.1 Major depressive disorder, recurrent, moderate DAYLIN GEORGE Dwight Encounter Template Text not used by [place] Assessments - Encounter Diagnoses This section includes the primary and secondary diagnoses documented for the Encounter. Date/Time Primary/Secondary Diagnosis Diagnosis Name Provider Source Dec 03, 2024 02:21 PM PRIMARY Major depressive disorder, recurrent, moderate AMADEO GEORGE LINO Dec 03, 2024 02:21 PM SECONDARY Generalized anxiety disorder AMADEO GEORGE [place] Plan of Treatment: Future Appointments (+ 6 months) and Future Tests (+/- 45 days) The Plan of Treatment section includes future care activities for the patient from all [place] treatmentfacilities. This section includes future appointments and future orders which are active, pending or scheduled. Future Appointments This section includes appointments that were scheduled to occur 6 months from the date of the Encounter, up to a maximum of 20 appointments. The data comes from all [place] treatment facilities. Appointment Date/Time Appointment Type Appointme nt Facility Name Dec 09, 2024 10:00 AM AMBULATORY - PSYCHIATRY [facility] Dec 10, 2024 03:00 PM AMBULATORY - PSYCHIATRY [facility] Social History: Smoking Status (Most current) and Tobacco Use (All prior to encounter date) This section includes the most current, and the historical, smoking and tobacco- related health factors from the [place] facility where the Encounter took place. Current Smoking Status This section includes the most current smoking, or tobacco-related health factor, from the [place] facility where the Encounter took place. Date/Time Current Smoking Status Comment [facility] Feb 07, 2024 04:00 PM [place]-TOBACCO NEVER USED [place] Tobacco Use History This section includes a history of the smoking, or tobacco-related health factors, that were collected on or before the date of the Encounter. The data comes from the [place] facility where the Encounter took place. Date/Time Smoking Status/Tobacco Use Comment F acility Nov 19, 2022 01:30 PM VA-TOBACCO NEVER USED [place] Oct 03, 2021 10:00 AM VA-TOBACCO NEVER USED [place] Nov 01, 2020 11:00 AM VA-TOBACCO NEVER USED [place] Oct 03, 2018 01:10 PM [place]-TOBACCO NEVER USED [place] Apr 19, 2017 02:22 PM LIFETIME NON-TOBACCO USER [facility] Jan 03, 2016 02:36 PM LIFETIME NON-TOBACCO USER [facility] [place] Feb 10, 2013 03:39 PM LIFETIME NON-TOBACCO USER [place] Advance Directives: All historical and current Section Date Range: From patient's date of to the date document was created. This section includes ALL of a patient's completed or amended [place] Advance and Rescinded Directives. The entries below indicate that a directive exists for the patient, but an actual copy is not included with this document. The data comes from all [facility]. Date Advance Directives Provider Source Jul 02, 2024 ADVANCE DIRECTIVE DISCUSSION REYNALDO GRIMES [facility] Apr 14, 2014 ADVANCE DIRECTIVE DISCUSSION ESTELA FLORENCE [facility] Encounter Notes: All associated encounter notes This section contains the clinical notes associated to the Encounter. Date/Time Encounter Note(s) Provider Source Dec 03, 2024 02:32 PM ADDENDUM: LOCAL TITLE: Addendum STANDARD TITLE: ADDENDUM DATE OF NOTE: DEC 03, 2024@14:32:10 ENTRY DATE: DEC 03, 2024@14:32:11 AUTHOR: PAYTON GEORGE EXP COSIGNER: URGENCY: STATUS: COMPLETED RTC for 12/09@10am /carole/ PAYTON GEORGE CLINICAL PSYCHOLOGIST Signed: 12/03/2024 14:32 Receipt Acknowledged By: 12/03/2024 14:42 /carole/ Cintia Grullon ADVANCED PICKLING SOLUTION MAKER --- Original Document --- 12/03/24 [place] VIDEO CONNECT PSYCHOLOGY NOTE: INFORMED CONSENT REVIEWED: At beginning of session reviewed rights and limits of confidentiality, mandatory reporting situations, duty to warn and protect, [place] Warning, (if treatment team finds patient to be an acute danger to himself or others, that this information could be relayed to a court of law and presented to a assistant corporate secretary), and [facility] access for active duty service members. Provided Suicide Prevention Hotline number, and other contact numbers as necessary. VISIT DURATION Other: 50 identified with 2 identifiers: Full Name, Facial Recognition DIAGNOSES: MDD,recurrent, severe, [employer] STATEMENT OF GOALS/CONCERNS: We agreed to work on cognitive defusion and lessening the negative thinking patterns that she gets stuck in SESSION FOCUS: Asphalt Tamper reflected on the past couple of sessions, noting that by the end of a session, which usually consists of venting and expressing the exent of her negative thinking, she feels worse and I am exhausting. Asphalt Tamper reflects what she said last week about wanting to change how she thinks and recognizing that it makes her feel awful and wears out everyone around her, namely her parents. Asphalt Tamper made a case for trying something different in session and focusing on building skills to defuse her thoughts. Asphalt Tamper provided psychoeducation about cognitive defusion and techniques for how to build this skill. She has done leaves on a stream a few times and agreed to try this on a daily (at least) basis. Asphalt Tamper cautioned that it is a skill that will require her to practice to get better at and that she's had a lot of practice rehearsing her negative thoughts, so she'll need to practice very hard with a different way of thinking for it to have a chance to take hold. Will send her a sheet on other ways of employing cognitive defusion. INTERVENTIONS: Psychotherapeutic Interventions: mindfulness, cognitive defusion, distress tolerance ASSESSMENT: BRIEF ASSESSMENT OF MENTAL STATUS: 1. Appearance (grooming, attire, apparent age) within normal limits: Yes 2. Thought content was organized and goal directed: Yes 3. Speech was coherent and unimpaired: Yes 4. Affect was appropriate and unremarkable: Yes 5. Demeanor was calm, with no signs of agitation or restlessness: No at baseline, is restless and anxious 6. Sleep was largely unimpaired and restful: No 7. No evidence of psychosis (hallucinations or delusions): Yes 8. Mood was normal: No anxious Other Observations: RISK ASSESSMENT: Evidence of suicidal ideation: passive SI without plan or intent PLAN FOR FOLLOW-UP: Next session planned for: 12/09@10am [place] [facility] ([facility]) Standard Documentation [facility] Clinician Resources Only: E911 (Emergency Call Relay Center): [phone] [employer] Crisis Line - 988 then press #1. [facility] Suicide Coordinator [phone], Ext. [phone]; Back-up Ext. [phone] [place] Police, Marlo PADILLA [phone] Introduction: Visit is being conducted by [employer]. identified with 2 identifiers: [X] Full Name [X] Date of [ ] VA ID Card Emergency Plan: confirmed and/or provided the following information in case of emergency or technology failure. PATIENT PHONE - PHONE NUMBER [CELLULAR] - Is patient phone number correct, if not, enter below: [place]'s phone number: STEPH CABRERA NAT [address], [place], [address] [place]'s present location and address for appointment: see above [place]'s emergency contact name and phone number: see cover [place] reported that location is private and safe: Yes Informed Consent: informed of the risks and benefits of Telehealth video care. [place] has the right to refuse video services. If refuses video visit, a [id number] visit will be scheduled. verbalized consent for this video visit: Yes [place] provided consent for any other persons present for visit: N/A If yes, who and relationship to patient: Secure visit: Visit was locked for security and privacy:Yes /carole/ PAYTON GEORGE CLINICAL PSYCHOLOGIST Signed: 12/03/2024 14:32 PAYTON GEORGE [place] Dec 03, 2024 02:17 PM TELEHEALTH NOTE: LOCAL TITLE: [place] VIDEO CONNECT PSYCHOLOGY NOTE STANDARD TITLE: TELEHEALTH NOTE DATE OF NOTE: DEC 03, 2024@14:17 ENTRY DATE: DEC 03, 2024@14:17:46 AUTHOR: PAYTON GEORGE EXP COSIGNER: URGENCY: STATUS: COMPLETED [place] VIDEO CONNECT PSYCHOLOGY NOTE Has ADDENDA INFORMED CONSENT REVIEWED: At beginning of session reviewed rights and limits of confidentiality, mandatory reporting situations, duty to warn and protect, [place] Warning, (if treatment team finds patient to be an acute danger to himself or others, that this information could be relayed to a court of law and presented to a assistant corporate secretary), and [facility] access for active duty service members. Provided Suicide Prevention Hotline number, and other contact numbers as necessary. VISIT DURATION Other: 50 [place] identified with 2 identifiers: Full Name, Facial Recognition DIAGNOSES: MDD,recurrent, severe, [employer] STATEMENT OF GOALS/CONCERNS: We agreed to work on cognitive defusion and lessening the negative thinking patterns that she gets stuck in SESSION FOCUS: Asphalt Tamper reflected on the past couple of sessions, noting that by the end of a session, which usually consists of venting and expressing the exent of her negative thinking, she feels worse and I am exhausting. Asphalt Tamper reflects what she said last week about wanting to change how she thinks and recognizing that it makes her feel awful and wears out everyone around her, namely her parents. Asphalt Tamper made a case for trying something different in session and focusing on building skills to defuse her thoughts. Asphalt Tamper provided psychoeducation about cognitive defusion and techniques for how to build this skill. She has done leaves on a stream a few times and agreed to try this on a daily (at least) basis. Asphalt Tamper cautioned that it is a skill that will require her to practice to get better at and that she's had a lot of practice rehearsing her negative thoughts, so she'll need to practice very hard with a different way of thinking for it to have a chance to take hold. Will send her a sheet on other ways of employing cognitive defusion. INTERVENTIONS: Psychotherapeutic Interventions: mindfulness, cognitive defusion, distress tolerance ASSESSMENT: BRIEF ASSESSMENT OF MENTAL STATUS: 1. Appearance (grooming, attire, apparent age) within normal limits: Yes 2. Thought content was organized and goal directed: Yes 3. Speech was coherent and unimpaired: Yes 4. Affect was appropriate and unremarkable: Yes 5. Demeanor was calm, with no signs of agitation or restlessness: No at baseline, is restless and anxious 6. Sleep was largely unimpaired and restful: No 7. No evidence of psychosis (hallucinations or delusions): Yes 8. Mood was normal: No anxious Other Observations: RISK ASSESSMENT: Evidence of suicidal ideation: passive SI without plan or intent PLAN FOR FOLLOW-UP: Next session planned for: 12/09@10am [place] [facility] ([facility]) Standard Documentation [facility] Clinician Resources Only: E911 (Emergency Call Relay Center): [phone] [place] [employer] Crisis Line - 988 then press #1. [facility] Suicide Coordinator [phone], Ext. [phone]; Back-up Ext. [phone] [place] Police, [place], Marlo [phone] Introduction: Visit is being conducted by [employer]. [place] identified with 2 identifiers: [X] Full Name [X] Date of [ ] [place] ID Card Emergency Plan: confirmed and/or provided the following information in case of emergency or technology failure. PATIENT PHONE - PHONE NUMBER [CELLULAR] - Is patient phone number correct, if not, enter below: 's phone number: STEPH CABRERA NAT [address], [place], [address] 's present location and address for appointment: see above 's emergency contact name and phone number: see cover reported that location is private and safe: Yes Informed Consent: informed of the risks and benefits of Telehealth video care. has the right to refuse video services. If refuses video visit, a [id number] visit will be scheduled. [place] verbalized consent for this video visit: Yes provided consent for any other persons present for visit: N/A If yes, who and relationship to patient: Secure visit: Visit was locked for security and privacy:Yes /carole/ PAYTNO GEORGE CLINICAL PSYCHOLOGIST Signed: 12/03/2024 14:32 12/03/2024 ADDENDUM STATUS: COMPLETED RTC for 12/09@10am /carole/ PAYTON GEORGE CLINICAL PSYCHOLOGIST Signed: 12/03/2024 14:32 Receipt Acknowledged By: * AWAITING SIGNATURE * CINTIA GRULLON CHRISTINE G [place]
--- OUTSIDE RECORDS SUMMARY | 2024-12-28 15:11 | XMS_ITS | Encounter Summary ---
Author Name [facility] [place] [facility] [place] Organization [facility] [place] Address [address] [place] [address] Care Team Providers Care Public Relations Intern Name Role Phone ARCENIO SUTHERLAND Primary Care Provider Unavail able Selected Encounter This section includes the information on record at [place] for the Encounter. Date/Time Encounter Type Encounter Description Reason Pro vider Source Dec 15, 2024 02:55 PM Outpatient Encounter PRIMARY CARE/MEDICINE IHE Encounter Template Text not used by [place] Plan of Treatment: Future Appointments (+ 6 [...] 22, 2024 03:00 PM AMBULATORY - PSYCHIATRY [facility] Jan 01, 2025 01:30 PM AMBULATORY - PSYCHIATRY [facility] Jan 07, 2025 01:00 PM AMBULATORY - PSYCHIATRY [facility] Feb 12, 2025 10:30 AM AMBULATORY - MEDICINE [facility] Active, Pending, and Scheduled Orders This [...] Dec 11, 2024 11:46 AM Consult Order [facility] Cons [employer] Processor's Choice [facility] Advance Directives: All historical and current Section [...] 02, 2024 ADVANCE DIRECTIVE DISCUSSION REYNALDO GRIMES [facility] Apr 14, 2014 ADVANCE DIRECTIVE DISCUSSION ESTELA FLORENCE [facility] Encounter Notes: All associated encounter notes This section contains the clinical notes associated to the Encounter. Date/Time Encounter Note(s) Provider Source Dec 15, 2024 02:55 PM ADMINISTRATIVE NOT E: LOCAL TITLE: ADMINISTRATIVE NOTE STANDARD TITLE: ADMINISTRATIVE NOTE DATE OF NOTE: DEC 15, 2024@14:55 ENTRY DATE: DEC 15, 2024@14:55:58 AUTHOR: REHAN RAMSAY COSIGNER: URGENCY: STATUS: COMPLETED THIS VENDING MACHINE REFILLER HAD SPOKEN TO TO RESCHEDULE F2F APPT WITH [facility]/SO/PACT 7 PROVIDER ON 02/12/2025 AT 10:30AM FOR ANNUAL FASTING LABS. /carole/ SHANNON RAMSAY ADVANCED COCKTAIL WAITRESS Signed: 12/15/2024 14:56 SHANNON RAMSAY WHEELING
--- OUTSIDE RECORDS SUMMARY | 2024-12-28 15:11 | XMS_ITS | Encounter Summary ---
Author Name [facility] [place] Organization [facility] [place] Address [address] [place] [address] Care Team Providers Care Welder Production Line Combination Name Role Phone JOE WADE Primary Care Provider Unavailabl e Selected Encounter This section includes the information on record at [place] for the Encounter. Date/Time Encounter Type Encounter Description Reason Pro vider Source IHE Encounter Template Text not used by [place] Advance Directives: All historical and current Section Date Range: From patient's date of to the date document was created. This section includes ALL of a patient's completed or amended [place] Advance and Rescinded Directives. The entries below indicate that a directive exists for the patient, but an actual copy is not included with this document. The data comes from all [place] facilities. Date Advance Directives Provider Source Jul 02, 2024 ADVANCE DIRECTIVE DISCUSSION REYNALDO GRIMES [place] [facility] Apr 14, 2014 ADVANCE DIRECTIVE DISCUSSION ESTELA FLORENCE [facility]
--- OUTSIDE RECORDS SUMMARY | 2024-12-28 15:11 | XMS_ITS | Continuity of Care Document ---
Author Name DOD-CT Organization DOD-CT Care Team Providers Care [employer] Area Supervisor Name Role Phone [facility] Unavailable Unavailable Problems Combined list of problems from Department of Defense and Veterans Affairs facilities. It does not include entries that were removed or entered in error. Problem Status Onset Date Problem Type Date of Resolution Comments Source hypothyroidism subclinical Active Condition DoD bloating Active Condition DoD depression with anxiety Active Condition DoD pain during urination (dysuria) Active Condition DoD feelings of urinary urgency Active Condition DoD hypothyroidism Active Condition DoD anorexia nervosa Active Condition DoD herpes simplex type I Inactive Condition DoD hemorrhoids Active Condition DoD hemorrhoids internal Active Condition DoD astigmatism Active Condition DoD refractive error - myopia Active Condition DoD visit for: examination of subpopulation Active Condition DoD visit for: services physical Active Condition DoD conditions influencing health status Active Condition DoD anorexia nervosa restricting type Active Condition DoD viral syndrome Inactive Condition [facility] Laboratory Studies Inactive Condition Do D Weight Too Low Active Condition DoD unusual / atypical behavior Inactive Condition DoD constipation Inactive Condition DoD upper back pain Active Condition DoD limb pain Active Condition DoD abdominal pain above the pubic area (suprapubic) Active Condition DoD urinary frequency increased Active Condition [facility] Administrative Evaluation Services Inactive Condition DoD abdominal pain feels crampy / colicky Active Condition [facility] visit for: administrative purpose Inactive Condition [facility] adjustment disorder with mixed emotional features Active Condition [facility] occupational problem Active Condition [facility] adjustment disorder with anxiety and depressed mood Active Condition [facility] dermatomycosis tinea versicolor Inactive Condition [facility] skin: rash [as Sx] Active Condition [facility] visit for: screening exam for malignant neoplasm cervix Active Condition [facility] routine gynecological exam with cervical pap smear Inactive Condition [facility] amenorrhea Active Condition [facility] visit for: contraceptive surveillance pill Inactive Condition [facility] current diet needs improvement Inactive Condition [facility] assessment of patient condition work status Active Condition [facility] Oral Contraceptives Active Condition [facility] Body Mass Index Inactive Condition [facility] underweight Active Condition [facility] Patient Education Dietary Active Condition [facility] Amenorrhea * (ICD-9-CM 626.0) Active Condition [facility] EL Anorexia * (ICD-9-CM 783.0) Active Condition [facility] Anorexia nervosa in remission (SNOMED CT 778214547) Active Condition [facility] Anxiety Active Condition [facility] Colonic Polyps Active Condition Feb 102012 Entered By: CHERELLE FELIX Comment: colonoscopy 2011 [facility] Fatigue Syndrome, Chronic * (ICD-9-CM 780.71) Active Condition [facility] IELD Generalized anxiety disorder (SNOMED CT 93980946) Active Condition [facility] Hyperglycaemia Active Condition [facility] IE Lactose intolerance [facility] [place] [facility] Major depressive disorder Active Condition [facility] Mixed hyperlipidaemia Active Condition [facility] LD Recurrent major depression Active Condition [facility] Routine Gynecological examination Active Condition March 17, 2013 Entered By: GABI JOSEPH Comment: PAP (first one, I think) MARCH 23: Neg DysplasiaMay 2012 Entered By: GABI JOSEPH Comment: US, Pelvis MARCH 23: NL Study [facility] Diagnosis: ICD-10-CM F33.2 Major depressv disorder, recurrent severe w/o psych features Active Diagnosis [facility] Diagnosis: ICD-10-CM F33.40 Major depressive disorder, recurrent, in remission, unsp Active Diagnosis [facility] LD Diagnosis: ICD-10-CM F33.1 Major depressive disorder, recurrent, moderate Active Diagnosis [facility] Diagnosis: ICD-10-CM F41.1 Generalized anxiety disorder Active Diagnosis [facility] ELD Diagnosis: ICD-10-CM R63.6 Underweight [facility] [place] [facility] Diagnosis: ICD-10-CM F41.9 Anxiety disorder, unspecified Active Diagnosis [facility] [place] Diagnosis: ICD-10-CM Z56.0 Unemployment, unspecified Active Diagnosis [facility] [place] [facility] Diagnosis: ICD-10-CM R73.9 Hyperglycemia, unspecified Active Diagnosis [facility] Diagnosis: ICD-10-CM F43.12 Post-traumatic stress disorder, chronic Active Diagnosis [facility] Diagnosis: ICD-10-CM Z71.9 Counseling, unspecified Active Diagnosis [facility] Diagnosis: ICD-10-CM F42.9 Obsessive-compulsi ve disorder, unspecified Active Diagnosis [facility] Diagnosis: ICD-10-CM Z71.81 Spiritual or evangelical counseling Active Diagnosis [facility] [place] Diagnosis: ICD-10-CM Z13.6 Encounter for screening for cardiovascular disorders Active Diagnosis [facility] Admit Reason: ANXIETY AND DEPRESSION Active Diagnosis [facility] [place] [facility] Diagnosis: ICD-10-CM R45.[address] [facility] Diagnosis: ICD-10-CM Z71.89 Other specified counseling Active Diagnosis [facility] Medications Combined list of outpatient medications from Department of Defense and Veterans Affairs facilities.Medications provided include 1) outpatient medications from the last 15 months, and 2) patient-reported medications. Medication Details Route Status Patient Instructions Prescription Expires Prescription Number Last Dispense Date Ordering Provider Order Date Order Qty Source ARIPIPRAZOL E 10MG TAB TAKE ONE-HALF TABLET BY MOUTH ONCE DAILY FOR MOOD/DEP RESSION ORAL DISCONT INUED (EDIT) 04/04/2025 [id number] Lis CHEUNG 2023 30 [place] ARIPIPRAZOL E 20MG TAB TAKE ONE-HALF TABLET BY MOUTH ONCE DAILY FOR MOOD/DEP RESSION ORAL DISCONT INUED BY PROVIDE R 05/08/2025 [id number] Lis CHEUNG 2023 30 [place] ARIPIPRAZOL E 5MG TAB TAKE ONE TABLET BY MOUTH ONCE DAILY FOR 4 DAYS, THEN TAKE ONE-HALF TABLET ONCE DAILY FOR 6 DAYS FOR MOOD/DEP RESSION ORAL DISCONT INUED BY PROVIDE R 07/17/2024 [id number] Lis CHEUNG 2023 7 [place] ARIPIPRAZOL E 5MG TAB TAKE ONE-HALF TABLET BY MOUTH ONCE DAILY FOR MOOD/DEP RESSION ORAL DISCONT INUED (EDIT) 02/07/2025 [id number] Lis CHEUNG 2023 30 [place] ARIPIPRAZOL E 5MG TAB TAKE ONE-HALF TABLET BY MOUTH ONCE DAILY FOR MOOD/DEP RESSION ORAL DISCONT INUED (EDIT) 02/14/2024 [id number] Lis CHEUNG 2023 15 [place] ASCORBIC ACID 500MG TAB TAKE TWO TABLETS BY MOUTH DAILY ORAL ACTIVE [place] RUIZ 2015 [place] BREXPIPRAZO LE 0.5MG TAB TAKE ONE TABLET BY MOUTH ONCE DAILY ORAL DISCONT INUED (EDIT) 08/01/2024 [id number] SKINNY MAHONEY M [address] [facility] [place] [facility] [facility] BREXPIPRAZO LE 1MG TAB TAKE ONE TABLET BY MOUTH ONCE DAILY FOR MAJOR DEPRESSI VE DISORDER ORAL DISCONT INUED (EDIT) 08/22/2024 [id number] Lis CHEUNG 2023 30 [place] BREXPIPRAZO LE 1MG TAB TAKE ONE TABLET BY MOUTH ONCE DAILY FOR MAJOR DEPRESSI VE DISORDER ORAL DISCONT INUED 08/05/2024 [id number] Lis CHEUNG 2023 30 [place] BREXPIPRAZO LE 2MG TAB TAKE ONE TABLET BY MOUTH ONCE DAILY FOR MAJOR DEPRESSI VE DISORDER ORAL DISCONT INUED 09/10/2024 [id number] Lis CHEUNG 2023 30 [place] BREXPIPRAZO LE 2MG TAB TAKE ONE TABLET BY MOUTH ONCE DAILY FOR MAJOR DEPRESSI VE DISORDER ORAL 10/23/2024 [id number] Lis CHEUNG 2023 30 [place] DIAZEPAM 5MG TAB TAKE ONE TABLET BY MOUTH AT BEDTIME FOR ANXIETY/ NERVES ORAL DISCONT INUED BY PROVIDE R 01/01/2025 [id number] Lis CHEUNG 2024 7 [place] ENSURE PLUS LIQUID CHOCOLATE DRINK 1 CAN BY MOUTH TWICE DAILY FOR NUTRITIO NAL SUPPLEME NTATION ORAL ACTIVE 07/30/2025 [id number] RENETTA MG F 2023 192 [place] ESCITALOPRA M OXALATE 10MG TAB TAKE ONE TABLET BY MOUTH ONCE DAILY FOR MOOD - TAKE IN ADDITION TO 20MG TABLETS ORAL DISCONT INUED BY PROVIDE R 01/22/2025 [id number] Lis CHEUNG 2024 60 [place] ESCITALOPRA M OXALATE 10MG TAB TAKE ONE TABLET BY MOUTH ONCE DAILY FOR MOOD/DEP RESSION ORAL DISCONT INUED (EDIT) 09/16/2025 [id number] Lis CHEUNG 2023 60 [place] ESCITALOPRA M OXALATE 10MG TAB TAKE ONE-HALF TABLET BY MOUTH ONCE DAILY FOR MOOD/DEP RESSION ORAL DISCONT INUED (EDIT) 09/01/2025 [id number] Lis CHEUNG 2023 15 [place] ESCITALOPRA M OXALATE 20MG TAB TAKE TWO TABLETS BY MOUTH ONCE DAILY FOR MOOD/DEP RESSION ORAL ACTIVE 12/12/2025 [id number] Lis CHEUNG 2024 60 [place] ESCITALOPRA M OXALATE 20MG TAB TAKE ONE TABLET BY MOUTH ONCE DAILY FOR MOOD/DEP RESSION ORAL DISCONT INUED (EDIT) 11/11/2025 [id number] Lis CHEUNG 2023 60 [place] ESCITALOPRA M OXALATE 20MG TAB TAKE ONE TABLET BY MOUTH ONCE DAILY FOR MOOD/DEP RESSION ORAL DISCONT INUED (EDIT) 10/07/2025 [id number] Lis CHEUNG 2023 60 [place] FISH OIL 1000MG (500MG DHA/EPA) CAP,ORAL TAKE 1 CAPSULE BY MOUTH DAILY ORAL ACTIVE [place] RUIZ 2015 [place] LORAZEPAM 0.5MG TAB TAKE ONE TABLET BY MOUTH FOUR TIMES DAILY NEEDED FOR ANXIETY ORAL ACTIVE 01/10/2025 [id number] Lis CHEUNG 2024 100 [place] LORAZEPAM 0.5MG TAB TAKE ONE TABLET BY MOUTH TWICE DAILY NEEDED FOR ANXIETY ORAL DISCONT INUED (EDIT) 02/11/2025 [id number] Lis CHEUNG 2023 60 [place] LORAZEPAM 0.5MG TAB TAKE ONE TABLET BY MOUTH THREE TIMES A DAY FOR ANXIETY ORAL DISCONT INUED (EDIT) 08/22/2024 [id number] Lis CHEUNG 2023 90 [place] LORAZEPAM 0.5MG TAB TAKE ONE TABLET BY MOUTH EVERY 6 HOURS NEEDED FOR ANXIETY ORAL DISCONT INUED (EDIT) 08/01/2024 [id number] SKINNY MAHONEY M 2023 30 [facility] MIRTAZAPINE 30MG TAB TAKE ONE TABLET BY MOUTH AT BEDTIME FOR DEPRESSI ON/MOOD ORAL DISCONT INUED (EDIT) 07/24/2025 [id number] Lis CHEUNG 2023 30 [place] MIRTAZAPINE 30MG TAB TAKE ONE-HALF TABLET BY MOUTH AT BEDTIME FOR DEPRESSI ON/MOOD ORAL DISCONT INUED (EDIT) 07/07/2025 [id number] Lis CHEUNG 2023 15 [place] MIRTAZAPINE 30MG TAB TAKE ONE-HALF TABLET BY MOUTH AT BEDTIME FOR DEPRESSI ON/MOOD ORAL DISCONT INUED 08/01/2024 [id number] SKINNY MAHONEY M 2023 15 [facility] MIRTAZAPINE 45MG TAB TAKE ONE TABLET BY MOUTH AT BEDTIME FOR DEPRESSI ON/MOOD ORAL ACTIVE 11/11/2025 [id number] 5 Lis CHEUNG 2024 30 [place] MIRTAZAPINE 45MG TAB TAKE ONE TABLET BY MOUTH AT BEDTIME FOR DEPRESSI ON/MOOD ORAL DISCONT INUED 09/16/2025 [id number] Lis CHEUNG 2023 30 [place] MIRTAZAPINE 45MG TAB TAKE ONE TABLET BY MOUTH AT BEDTIME FOR DEPRESSI ON/MOOD ORAL DISCONT INUED 08/12/2025 [id number] Lis CHEUNG 2023 30 [place] MULTIVITAMI NS CAP/TAB TAKE ONE TABLET BY MOUTH DAILY ORAL ACTIVE [place] RUIZ 2015 [place] QUETIAPINE FUMARATE 25MG TAB TAKE 1-2 TABLETS BY MOUTH AT BEDTIME NEEDED INSOMNIA /ANXIETY ORAL ACTIVE 01/17/2025 [id number] Lis CHEUNG G 2024 28 [place] VENLAFAXINE HCL 150MG 24HR CAP,SA TAKE TWO CAPSULES BY MOUTH ONCE DAILY ORAL DISCONT INUED BY PROVIDE R 07/07/2025 [id number] Lis CHEUNG 2023 60 [place] VENLAFAXINE HCL 150MG 24HR CAP,SA TAKE TWO CAPSULES BY MOUTH ONCE DAILY ORAL DISCONT INUED 08/01/2024 [id number] DENZELSKINNY Mcfarland M [address] [facility] VENLAFAXINE HCL 150MG 24HR CAP,SA TAKE TWO CAPSULES BY MOUTH ONCE DAILY FOR MAJOR DEPRESSI VE DISORDER ORAL DISCONT INUED BY PROVIDE R 04/04/2025 [id number] Lis CHEUNG G 2023 120 [place] VENLAFAXINE HCL 37.5MG 24HR CAP,SA TAKE ONE CAPSULE BY MOUTH ONCE DAILY ORAL DISCONT INUED BY PROVIDE R 10/07/2025 [id number] Lis CHEUNG G 2023 30 [place] VENLAFAXINE HCL 75MG 24HR CAP,SA TAKE ONE CAPSULE BY MOUTH ONCE DAILY FOR MAJOR DEPRESSI VE DISORDER ORAL DISCONT INUED (EDIT) 08/12/2025 [id number] Lis CHEUNG G 2023 30 [place] VENLAFAXINE HCL 75MG 24HR CAP,SA TAKE THREE CAPSULES BY MOUTH ONCE DAILY FOR MAJOR DEPRESSI VE DISORDER ORAL DISCONT INUED (EDIT) 02/07/2025 [id number] Lis CHEUNG G 2023 180 [place] VENLAFAXINE HCL 75MG 24HR CAP,SA TAKE THREE CAPSULES BY MOUTH ONCE DAILY FOR MAJOR DEPRESSI VE DISORDER ORAL 01/31/2024 [id number] Lis CHEUNG G 2023 90 [facility] IELD VENLAFAXINE HCL 75MG 24HR CAP,SA TAKE ONE CAPSULE BY MOUTH ONCE DAILY TAKE IN ADDITION TO 150MG TABLET ORAL 12/24/2023 [id number] Lis CHEUNGEN G 2022 60 [place] Allergies, Adverse Reactions, Alerts Combined list of allergies from Department of Defense and Veterans Affairs facilities. It does not include entries that were removed or entered in error. Substance Category Reaction Severity Reaction type Status Date Reported Comments Source No Known Allergies Drug allergy (disorder) active 04/15/2009 17 [facility] Group Immunizations Combined list of available immunizations from the Department of Defense and Veterans Affairs facilities. Immunization Series Date Given Administered By Site Reaction Lot Number CVX Code Drug Spine Surgeon Status Comments Source COVID-19 (MODERNA), MRNA, LNP-S, PF, 100 MCG/0.5 ML DOSE 2 2020 207 complet ed MOD; [id number]; 1 [facility] [place] [facility] COVID-19 (MODERNA), MRNA, LNP-S, PF, 100 MCG/0.5 ML DOSE 1 2020 207 complet ed MOD; [id number]; 1 [facility] [place] [facility] [facility] INFLUENZA, UNSPECIFIED FORMULATION [address] [facility] [place] [facility] FLU,3 YRS (HISTORICAL) 2015 88 complet ed Site: Right Deltoid [facility] FLU,3 YRS (HISTORICAL) [address] [facility] [place] [facility] [facility] DTAP, UNSPECIFIED FORMULATION [address] [facility] [place] [facility] influenza virus vaccine, live, attenuated, for intranasal use 1 2010 [id number] [employer]. (MED) complet ed influenza virus vaccine, live, attenuate d, for intranasa l use [facility] influenza virus vaccine, split virus (incl. purified surface antigen)-reti red CODE 1 2009 [id number] [employer] (CSL) complet ed influenza virus vaccine, split virus (incl. purified surface antigen)- retired CODE DoD Novel influenza-H1N 1-09, injectable 1 2009 [id number] 127 Novartis Cyota. (NOV) complet ed Novel influenza -A4J0-19, injectabl e DoD hepatitis A vaccine, adult dosage 2 2008 [id number] 52 [employer]My[employer] (SKB) complet ed hepatitis A vaccine, adult dosage DoD influenza virus vaccine, live, attenuated, for intranasal use 1 2008 [id number] 111 [employer] (MED) complet ed influenza virus vaccine, live, attenuate d, for intranasa l use DoD varicella virus vaccine 2 2008 [id number] Merck (MSD) complet ed varicella virus vaccine DoD measles, mumps and rubella virus vaccine 1 2008 03 () Not Given measles, mumps and rubella virus vaccine DoD varicella virus vaccine 1 2008 [id number] 21 Merck (MSD) complet ed varicella virus vaccine DoD hepatitis B vaccine, adult dosage 1 2008 43 () Not Given hepatitis B vaccine, adult dosage DoD hepatitis A vaccine, adult dosage 1 2008 [id number] 52 [employer]Mygeni[employer] (SKB) complet ed hepatitis A vaccine, adult dosage DoD poliovirus vaccine, inactivated 1 2008 [id number] Sanofi Pasteur ([facility]) complet ed polioviru s vaccine, inactivat ed DoD influenza virus vaccine, split virus (incl. purified surface antigen)-reti red CODE 1 2008 [id number] 15 [employer] (CS) complet ed influenza virus vaccine, split virus (incl. purified surface antigen)- retired CODE DoD meningococcal polysaccharid e (groups A, C, Y and W-135) diphtheria toxoid conjugate vaccine (MCV4P) 1 2008 [id number] Sanofi Pasteur ([facility]) complet ed meningoco ccal polysacch aride (groups A, C, Y and W-135) diphtheri a toxoid conjugate vaccine (MCV4P) DoD tetanus toxoid, reduced diphtheria toxoid, and acellular pertu is vaccine, adsorbed 1 [id number] [place], [place] [address]line (SKB) complet ed tetanus toxoid, reduced diphtheri a toxoid, and acellular pertussis vaccine, adsorbed DoD Results Combined list of recent chemistry, hematology and other laboratory results from Department of Defense and Veterans Affairs, ranging from 15 months to all on record, depending upon the facility. Order Name Results Value Reference Range Date Interpretation Specimen Comments Source COVID-19 SCREENIN G PANEL ([email or web address] ) SARS-COV-2 (COVID-19) RNA [PRESENCE] IN RESPIRATOR Y SYSTEM SPECIMEN BY LORRAINE WITH PROBE DETECTION NEGATIVE 07/03 Specimen Type: NASOPHARYNX Comment: This test is authorized for emergency use only. False negative results may occur if virus is present at levels below the analytical limit of detection.N egative results do not preclude SARS-CoV-2 infection and should not be used as the sole basis for treatment or other patient management decisions.C epheid FLUVID: HCPs: https://www .fda.gov/wa jojo/864725/ download. Patients: https://www .fda.gov/wa jojo/080290/ download Ordering Provider: MARITZA SHAH Report Released Date/Time: Jul 03, 2024 12:29 PM Reporting Lab: [address] [address] Performing Lab: [address] [address] [facility] HCG QUAL, URINE CHORIOGONA DOTROPIN.B ETA SUBUNIT ( TEST) [PRESENCE] IN URINE NEGATIVE 06/22 Specimen Type: URINE No comment entered. Ordering Provider: MIGUELANGEL MAHONEY Report Released Date/Time: Jun 22, 2024 08:18 AM Reporting Lab: [address] [address] Performing Lab: [address] [address] [facility] HEMOGLOB IN A1C PANEL HEMOGLOBIN A1C/HEMOGL OBIN.TOTAL IN BLOOD BY HPLC 5.0 4.0 - 5.6 06/22 Specimen Type: BLOOD Comment: Values obtained from A1C measurement s can vary. For atypical A1C assays, a reported value of 7.0 could actually be between 6.72 and 7.28 if measured by a reference method. A reported value of 9.0 could actually be between 8.73 and 9.27. Ref: http://www. ngsp.org/[place] Pdata.asp Ordering Provider: MIGUELANGEL MAHONEY Report Released Date/Time: Jun 19, 2024 11:44 AM Reporting Lab: [facility] [address] Performing Lab: [facility] [address] [facility] LIPID PANEL FASTING CHOLESTERO L [MASS/VOLU ME] IN SERUM OR PLASMA 218 mg/dL 06/22 H Specimen Type: SERUM No comment entered. Ordering Provider: MIGUELANGEL MAHONEY Report Released Date/Time: Jun 19, 2024 11:44 AM Reporting Lab: [facility] [address] Performing Lab: [facility] [address] [facility] LIPID PANEL FASTING TRIGLYCERI DE [MASS/VOLU ME] IN SERUM OR PLASMA 81 mg/dL 0 - 150 06/22 Specimen Type: SERUM No comment entered. Ordering Provider: MIGUELANGEL MAHONEY Report Released Date/Time: Jun 19, 2024 11:44 AM Reporting Lab: [facility] [address] Performing Lab: [facility] [address] [facility]RM[facility] LIPID PANEL FASTING CHOLESTERO L IN LDL [MASS/VOLU ME] IN SERUM OR PLASMA BY CALCULATIO N 142 mg/dL 0 - 129 06/22 H Specimen Type: SERUM No comment entered. Ordering Provider: MIGUELANGEL MAHONEY Report Released Date/Time: Jun 19, 2024 11:44 AM Reporting Lab: [facility]TR[facility] [address] Performing Lab: [facility]ITALRMARSH[facility]N [facility] [address] [facility] [address] [facility] LIPID PANEL FASTING CHOLESTERO L.TOTAL/CH OLESTEROL IN HDL [MASS RATIO] IN SERUM OR PLASMA 3.6 06/22 Specimen Type: SERUM No comment entered. Ordering Provider: MIGUELANGEL MAHONEY Report Released Date/Time: Jun 19, 2024 11:44 AM Reporting Lab: [facility]ITALRM[facility] [address] Performing Lab: [facility]RM[facility]N [facility] [address] [facility] LIPID PANEL FASTING CHOLESTERO L IN HDL [MASS/VOLU ME] IN SERUM OR PLASMA 60 mg/dL 40 - 60 06/22 Specimen Type: SERUM No comment entered. Ordering Provider: MIGUELANGEL MAHONEY Report Released Date/Time: Jun 19, 2024 11:44 AM Reporting Lab: [facility]ITALRMAR[facility]N [address] [address] Performing Lab: [facility]ITALRMAR[facility]N [facility] [address] [facility] CALCIUM CALCIUM [MASS/VOLU ME] IN SERUM OR PLASMA 9.6 mg/dL 8.5 - 10.2 06/22 Specimen Type: SERUM No comment entered. Ordering Provider: MIGUELANGEL MAHONEY Report Released Date/Time: Jun 22, 2024 08:24 AM Reporting Lab: [facility]ITALRMAR[facility]N [facility] [address] Performing Lab: [facility]ITALRMAR[facility]N [facility] [address] [facility] BASIC METABOLI C PANEL (non-fas ting) UREA NITROGEN [MASS/VOLU ME] IN SERUM OR PLASMA 19 mg/dL 7 - 25 06/22 Specimen Type: SERUM No comment entered. Ordering Provider: MIGUELANGEL MAHONEY Report Released Date/Time: Jun 22, 2024 02:03 PM Reporting Lab: [facility] [place] [facility] [address] [facility] [address] Performing Lab: [facility] W[facility] [address] [facility] [address] [facility] W[facility] BASIC METABOLI C PANEL (non-fas ting) GLUCOSE [MASS/VOLU ME] IN SERUM OR PLASMA 109 mg/dL 65 - 100 06/22 H Specimen Type: SERUM No comment entered. Ordering Provider: MIGUELANGEL MAHONEY Report Released Date/Time: Jun 22, 2024 02:03 PM Reporting Lab: [facility]ITALRL TRN [address] [address] Performing Lab: [facility]ITALRL TRN [address] [address] [facility] BASIC METABOLI C PANEL (non-fas ting) SODIUM [MOLES/VOL UME] IN SERUM OR PLASMA 139 mmol/L 135 - 145 06/22 Specimen Type: SERUM No comment entered. Ordering Provider: MIGUELANGEL MAHONEY Report Released Date/Time: Jun 22, 2024 02:03 PM Reporting Lab: [facility]ITALRL TRN [facility] [address] Performing Lab: [facility] [address] [facility]RL TRN [facility] BASIC METABOLI C PANEL (non-fas ting) POTASSIUM [MOLES/VOL UME] IN SERUM OR PLASMA 4.5 mmol/L 3.5 - 5.0 06/22 Specimen Type: SERUM No comment entered. Ordering Provider: MIGUELANGEL MAHONEY Report Released Date/Time: Jun 22, 2024 02:03 PM Reporting Lab: [facility] [address] Performing Lab: [facility] [address] [facility]RL [facility] BASIC METABOLI C PANEL (non-fas ting) CHLORIDE [MOLES/VOL UME] IN SERUM OR PLASMA 104 mmol/L 100 - 110 06/22 Specimen Type: SERUM No comment entered. Ordering Provider: MIGUELANGEL MAHONEY Report Released Date/Time: Jun 22, 2024 02:03 PM Reporting Lab: [address] [address] Performing Lab: [address] [address] [facility] BASIC METABOLI C PANEL (non-fas ting) CARBON DIOXIDE, TOTAL [MOLES/VOL UME] IN SERUM OR PLASMA 24 meq/L 20 - 30 06/22 Specimen Type: SERUM No comment entered. Ordering Provider: MIGUELANGEL MAHONEY Report Released Date/Time: Jun 22, 2024 02:03 PM Reporting Lab: [address] [address] Performing Lab: [address] [address] [facility] BASIC METABOLI C PANEL (non-fas ting) CREATININE [MASS/VOLU ME] IN SERUM OR PLASMA 0.89 mg/dL 0.50 - 1.40 06/22 Specimen Type: SERUM No comment entered. Ordering Provider: MIGUELANGEL MAHONEY Report Released Date/Time: Jun 22, 2024 02:03 PM Reporting Lab: [address] [address] Performing Lab: [address] [address] [facility] BASIC METABOLI C PANEL (non-fas ting) GLOMERULAR FILTRATION RATE/1.73 SQ M.PREDICTE D [VOLUME RATE/AREA] IN SERUM, PLASMA OR BLOOD BY CREATININE -BASED FORMULA (CKD-EPI 2020) 85 mL/min 60 06/22 Specimen Type: SERUM No comment entered. Ordering Provider: MIGUELANGEL MAHONEY Report Released Date/Time: Jun 22, 2024 02:03 PM Reporting Lab: [address] [address] Performing Lab: [facility] [address] [address] [facility] COVID-19 MONITOR PANEL ([employer] ) SARS-COV-2 (COVID-19) RNA [PRESENCE] IN RESPIRATOR Y SYSTEM SPECIMEN BY LORRAINE WITH PROBE DETECTION NEGATIVE 06/18 Specimen Type: NASOPHARYNX Comment: This test is authorized for emergency use only. False negative results may occur if virus is present at levels below the analytical limit of detection.N egative results do not preclude SARS-CoV-2 infection and should not be used as the sole basis for treatment or other patient management decisions.C epheid FLUVID: HCPs: https://www .fda.gov/wa jojo/292246/ download. Patients: https://www .fda.gov/wa jojo/423546/ download Ordering Provider: MARITZA SHAH Report Released Date/Time: Jun 18, 2024 03:05 PM Reporting Lab: [address] [address] Performing Lab: [address] [phone] [place] [address] ETHANOL ETHANOL [MASS/VOLU ME] IN SERUM OR PLASMA <10mg/dL 06/18 Specimen Type: PLASMA No comment entered. Ordering Provider: MARITZA SHAH Report Released Date/Time: Jun 18, 2024 02:30 PM Reporting Lab: [address] [address] Performing Lab: [address] [address] [facility] BASIC METABOLI C PANEL (non-fas ting) UREA NITROGEN [MASS/VOLU ME] IN SERUM OR PLASMA 18 mg/dL 7 - 25 06/18 Specimen Type: SERUM No comment entered. Ordering Provider: MARITZA SHAH Report Released Date/Time: Jun 18, 2024 02:30 PM Reporting Lab: [address] [place] [address] Performing Lab: [facility] HOSPITALTRN [facility] [address] [facility] [address] [facility]OS[facility]ITALRL TRN [facility]ITALSUSE [facility] BASIC METABOLI C PANEL (non-fas ting) GLUCOSE [MASS/VOLU ME] IN SERUM OR PLASMA 110 mg/dL 65 - 100 06/18 H Specimen Type: SERUM No comment entered. Ordering Provider: MARITZA SHAH JO J Report Released Date/Time: Jun 18, 2024 02:30 PM Reporting Lab: [facility]ITALRMARSH[facility] [address] [facility] [address] Performing Lab: [facility] [address] [address] [facility] BASIC METABOLI C PANEL (non-fas ting) SODIUM [MOLES/VOL UME] IN SERUM OR PLASMA 137 mmol/L 135 - 145 06/18 Specimen Type: SERUM No comment entered. Ordering Provider: MARITZA SHAH JO J Report Released Date/Time: Jun 18, 2024 02:30 PM Reporting Lab: [facility] [address] [address] Performing Lab: [facility] [address] [address] [facility] BASIC METABOLI C PANEL (non-fas ting) POTASSIUM [MOLES/VOL UME] IN SERUM OR PLASMA 3.9 mmol/L 3.5 - 5.0 06/18 Specimen Type: SERUM No comment entered. Ordering Provider: MARITZA SHAH JO J Report Released Date/Time: Jun 18, 2024 02:30 PM Reporting Lab: [facility]ITALRL TRN [facility]ITALSUSE[address] [address] Performing Lab: [facility]OS[facility]ITALRL [facility] [address] [address] [facility] BASIC METABOLI C PANEL (non-fas ting) CHLORIDE [MOLES/VOL UME] IN SERUM OR PLASMA 103 mmol/L 100 - 110 06/18 Specimen Type: SERUM No comment entered. Ordering Provider: MARITZA SHAH Report Released Date/Time: Jun 18, 2024 02:30 PM Reporting Lab: [address] [address] Performing Lab: [address] [address] [facility] BASIC METABOLI C PANEL (non-fas ting) CARBON DIOXIDE, TOTAL [MOLES/VOL UME] IN SERUM OR PLASMA 29 meq/L 20 - 30 06/18 Specimen Type: SERUM No comment entered. Ordering Provider: MARITZA SHAH Report Released Date/Time: Jun 18, 2024 02:30 PM Reporting Lab: [address] [address] Performing Lab: [address] [phone] [place] [address] BASIC METABOLI C PANEL (non-fas ting) CREATININE [MASS/VOLU ME] IN SERUM OR PLASMA 0.84 mg/dL 0.50 - 1.40 06/18 Specimen Type: SERUM No comment entered. Ordering Provider: MARITZA SHAH Report Released Date/Time: Jun 18, 2024 02:30 PM Reporting Lab: [address] [address] Performing Lab: [address] [address] [facility] BASIC METABOLI C PANEL (non-fas ting) GLOMERULAR FILTRATION RATE/1.73 SQ M.PREDICTE D [VOLUME RATE/AREA] IN SERUM, PLASMA OR BLOOD BY CREATININE -BASED FORMULA (CKD-EPI 2020) >90mL/mi n 60 06/18 Specimen Type: SERUM No comment entered. Ordering Provider: MARITZA SHAH Report Released Date/Time: Jun 18, 2024 02:30 PM Reporting Lab: [address] [place] [address] Performing Lab: [place] [facility] [facility] [address] [facility] [address] [place] [facility] [place] [facility] LIVER FUNCTION PROTEIN [MASS/VOLU ME] IN SERUM OR PLASMA 7.1 g/dL 6.0 - 8.3 06/18 Specimen Type: SERUM No comment entered. Ordering Provider: MARITZA SHAH JO J Report Released Date/Time: Jun 18, 2024 02:30 PM Reporting Lab: [facility] [place] [facility] [address] [facility] [address] Performing Lab: [place] [facility] [facility] [address] [facility] [address] [facility]ITALRL WSTRN MASSUSE [facility] LIVER FUNCTION ALBUMIN [MASS/VOLU ME] IN SERUM OR PLASMA 4.2 g/dL 3.5 - 5.0 06/18 Specimen Type: SERUM No comment entered. Ordering Provider: MARITZA SHAH JO J Report Released Date/Time: Jun 18, 2024 02:30 PM Reporting Lab: [place] [facility] [place] [facility] [address] [facility] [address] Performing Lab: [place] [facility] [address] [facility] [address] [facility]ITALRL WSTRN [facility] LIVER FUNCTION ALKALINE PHOSPHATAS E [ENZYMATIC ACTIVITY/V OLUME] IN SERUM OR PLASMA 46 U/L 40 - 150 06/18 Specimen Type: SERUM No comment entered. Ordering Provider: MARITZA SHAH JO J Report Released Date/Time: Jun 18, 2024 02:30 PM Reporting Lab: [facility] [place] [facility] [address] [facility] [address] Performing Lab: [place] [facility] [address] [facility] [address] [facility]ITALRL W[facility] [place] [facility] LIVER FUNCTION ASPARTATE AMINOTRANS FERASE [ENZYMATIC ACTIVITY/V OLUME] IN SERUM OR PLASMA 10 U/L 5 - 34 06/18 Specimen Type: SERUM No comment entered. Ordering Provider: MARITZA SHAH JO J Report Released Date/Time: Jun 18, 2024 02:30 PM Reporting Lab: [facility]ITALRBAYPOINTE HOSPITALTRN [facility]PITALSUSETS [facility] [address] [facility] [address] Performing Lab: [facility]OS[facility]ITALRBAYPOINTE HOSPITALTRN [facility]ITALSUSE[facility] [address] [facility] [address] [facility]ITALRMARSHALL [facility] SOUTHN [facility]SU[facility] LIVER FUNCTION ALANINE AMINOTRANS FERASE [ENZYMATIC ACTIVITY/V OLUME] IN SERUM OR PLASMA 11 U/L 06/18 Specimen Type: SERUM No comment entered. Ordering Provider: MARITZA SHAH Report Released Date/Time: Jun 18, 2024 02:30 PM Reporting Lab: [facility]ITALRBAYPOINTE HOSPITALTRN [facility] [address] [facility] [address] Performing Lab: [facility]ITALRBAYPOINTE HOSPITALTRN [facility]ITAL[facility] [address] [facility] [address] [facility] LIVER FUNCTION BILIRUBIN. TOTAL [MASS/VOLU ME] IN SERUM OR PLASMA 0.3 mg/dL 0.2 - 1.2 06/18 Specimen Type: SERUM No comment entered. Ordering Provider: MARITZA SHAH Report Released Date/Time: Jun 18, 2024 02:30 PM Reporting Lab: [facility]ITALRBAYPOINTE HOSPITALTRN [facility] [address] [facility] [address] Performing Lab: [facility]ITALRBAYPOINTE HOSPITALTRN [facility]ITALSUSE[address] [address] [facility] Vital Signs Combined list of inpatient and outpatient Vital Signs from Department of Defense and Veterans Affairs, ranging from 12 months to all on record, depending upon the facility. Vital Sign Value Date Comments Source SYSTOLIC BLOOD PRESSURE 97 07/08/20 10:50:08 [facility] DIASTOLIC BLOOD PRESSURE 63 024 10:50:08 [facility] PULSE OXIMETRY 99 07/08/2024 10:50:08 [facility] WEIGHT 104.2 07/08/2024 10:50:08 [facility] BMI 18 kg/m2 07/08/2024 10:50:08 [facility] TEMPERATURE 98.8 07/08/2024 10:50:08 [facility] PULSE 63 07/08/2024 10:50:08 [facility] TEMPERATURE 97.6 07/03/2024 06:12:05 [facility] [place] [facility] WEIGHT 106 07/02/2024 07:19:44 [facility] [place] [facility] BMI 18 kg/m2 07/02/2024 07:19:44 [facility] [place] [facility] SYSTOLIC BLOOD PRESSURE 106 07/01/20 20:02:43 [facility] [place] [facility] DIASTOLIC BLOOD PRESSURE 66 024 20:02:43 [facility] [place] [facility] PULSE OXIMETRY 100 07/01/2024 20:02:43 [facility] [place] [facility] TEMPERATURE 97.2 07/01/2024 20:02:43 [facility] [place] [facility] PULSE 70 07/01/2024 20:02:43 [facility] [place] [facility] RESPIRATION 16 07/01/2024 20:02:43 [facility] [place] [facility] TEMPERATURE 97.3 06/30/2024 07:21:46 [facility] [place] [facility] Encounters Combined list of: 1) Encounters from Department of Veterans Affairs facilities going backup to the last 18 months, not all VA inpatient encounters are included; 2) Encounters from the Department of Defense facilities going backup to 280 months. Location Location Details Encounter Type Encounter Number Reason For Visit Attending Provider ADM Date DC Date Status Disposition [place] [address](ZZN utritiona l Med LAFB, 37) OUTPATIENT [id number] low bmi DONNELL SPEARS 02/03 Released w/o Limitations [facility] [place] [address](Z ZNutrit ional Med LAFB, 37th) [employer] OUTPATIENT [id number] bc pills EVITA VIDES 04/15 Released w/o Limitations [employer] [employer](ZZ Myla Back) OUTPATIENT [id number] HUMBERTO MARK 11/23 Released w/o Limitations [employer](Z Z Myla Back) [employer]([facility]) OUTPATIENT [id number] irregul ar FRANKY CrossAlan Mcfarland 11/23 Released w/o Limitations [facility] Medical [facility]) [address] [place] [address]([facility]) OUTPATIENT [id number] PETER Rodríguez 12/13 Released w/o Limitations [address] [place] [address]([facility]) [facility]([place]) OUTPATIENT [id number] poss fungus on back ANDREE MASTERSON E 05/31 Released w/o Limitations [address] [place] [address](B ighorn) [facility] Medical [facility]) OUTPATIENT [id number] rash located on upper back DEBORAH ANGEL E 07/12 Released w/o Limitations [address] [place] [address](D ermatol ogy [facility]) [address] [place] [address]([facility]) TELE CONSULT [id number] dermato logy follow- up STEPH ALBERT 08/03 [facility](D ermatol ogy [facility]) [facility]) TELE CONSULT [id number] labwork EVITA Dunbar 09/19 [facility](Z Z Myla Back) [facility] Medical [facility]) TELE CONSULT [id number] GI discomf ort, crampin g, gas, HELEN Evans 10/20 [facility](Z Z Myla Back) [facility]( Myla Back) OUTPATIENT [id number] abdomin al discomf ort x 1 month PRATIBHA POLLARD 10/20 Released w/o Limitations [facility] Medical [facility](Z Z Myla Back) [facility]) TELE CONSULT [id number] rx refill MARIO ALBERTO BROWN 10/20 [facility] Medical [facility]) [facility]) OUTPATIENT [id number] bc refill for PETER ALBARADO 10/27 Released w/o Limitations [address] [place] [address]([facility]) [facility] Group(ZZ Myal Back) TELE CONSULT [id number] xray and lab results - PRATIBHA Poe E 10/27 [facility] Medical Group( Z Myla Back) [facility]) TELE CONSULT [id number] Triage limb pain - EVITA Dunbar 11/13 [facility](Z Z Myla Back) [facility]) OUTPATIENT [id number] leg pain/ frequen t urinati on AKANKSHA OCAMPO E 11/13 Released w/o Limitations [facility](E agle) [facility]( Myla [facility]) TELE CONSULT [id number] labs EVITA DELONG 11/16 [facility] Myla Back) [facility]) OUTPATIENT [id number] freq urinati on/no pain VINAY FARLEY 11/21 Released w/o Limitations [facility] Medical Group( Z Myla Back) [facility]) TELE CONSULT [id number] Medicat ion refill - EVITA Dunbar 12/18 [facility] Myla Back) [facility]) TELE CONSULT [id number] Request ed dates of HAMILTON Sanchez 01/03 [facility] Medical Group(Z Z Myla Back) [facility]) OUTPATIENT [id number] ongoing issues with constip ation VINAY FARLEY 01/04 Released w/o Limitations [facility](Z Z Myla Back) [facility]) OUTPATIENT [id number] cold-li ke sx VINAY FARLEY 01/10 Sick at Home/Quarter s [facility](Z Z Myla Back) [facility]) TELE CONSULT [id number] Quarter extensi on per PCM/ EVITA Dunbar 01/11 [facility]( Z Myla Back) [facility] Medical Group([facility] t) TELE CONSULT [id number] Inpatie nt Admissi on NATALI BEE Cinda 02/14 [employer]([facility]) [employer]([place]) OUTPATIENT [id number] F/U [facility], [id number] , Eating disorde r CATHY AURORA D 05/01 Released w/o Limitations [employer]([facility]) [employer]([place]) OUTPATIENT [id number] PHA-OVE R TIERRA TORRES 05/09 Released w/o Limitations [employer](E agle) [facility]) OUTPATIENT [id number] annual for STACIE ORTIZ 05/22 Released w/o Limitations [facility](O ptometr y Clinic) [facility]( [facility]) OUTPATIENT [id number] breast exam - booked by last 2 of ssn GABI WARREN 05/28 Released w/o Limitations [facility]) [facility]( Myla [facility]) OUTPATIENT [id number] bleedin g and itching in anal area YURY QUIÑONES 08/15 Released w/o Limitations [facility] Myla Back) [facility]) TELE CONSULT [id number] med renewal URVASHI Zafar 09/04 [employer](Z Z Myla Back) [facility] Medical [facility] ) OUTPATIENT [id number] Hemorro ids discomf ort JEANNETTE TOBIN 11/09 Released w/o Limitations [facility]( ZRoad nner) [facility] ) OUTPATIENT [id number] follow up on GI issues JEANNETTE TOBIN 12/11 Released w/o Limitations [facility] Medical Group(Z ZRoadru nner) [facility] Medical [facility] ) TELE CONSULT [id number] HRT Questio n/ JEANNETTE Bone 12/21 [employer]( ZRoadru nner) [facility] Medical [facility] ) OUTPATIENT [id number] annual naheed TOBIN, JEANNETTE Anaya 01/01 Released w/o Limitations [facility](Z ZRoadru nner) [facility] En[facility] [id number] 08/12 [facility] [place] [place] [facility] Outpatient Encounter [id number] 10/24 [place] [facility] [place] [facility] [place] OFF/OP CONSLTJ NEW/[place] HI 55 [id number] Diagnos is: ICD-10- CM F33.40 Major depress medhat disorde r, recurre nt, in remissi on, unsp CHEUNG,ST EVEN G 10/25 [facility] [place] [facility] Outpatient Encounter [id number] 12/31 [facility] [place] [facility]/P EST LOW 20 MIN [id number] Diagnos is: ICD-10- CM F33.40 Major depress medhat disorde r, recurre nt, in remissi on, unsp CHEUNG,ST EVEN G 01/07 [facility] Outpatient Encounter [id number] 01/20 [facility] Outpatient Encounter [id number] 01/21 [facility] [place] [facility] Outpatient Encounter [id number] 01/29 [facility] [place] [facility] Outpatient Encounter [id number] 02/06 [facility] OFF[facility] O/P EST LOW 20 MIN [id number] Diagnos is: ICD-10- CM F33.40 Major depress medhat disorde r, recurre nt, in remissi on, unsp CHEUNG,ST EVEN G 02/06 [place] [facility] Outpatient Encounter [id number] 02/16 [facility] [place] [facility] Out[facility] Encounter [id number] 02/26 [facility] [place] En[facility] [id number] 04/02 [facility] [place] [facility] OFFICE O/P EST LOW 20 MIN [id number] Diagnos is: ICD-10- CM F33.40 Major depress medhat disorde r, recurre nt, in remissi on, unsp SKYE,ST EVEN G 04/03 [place] [facility] Encounter [id number] 04/07 [facility] Encounter [id number] 04/20 [facility] [place] [facility] Outpatient Encounter [id number] 05/07 [facility] [place] [facility] Outpatient Encounter [id number] 05/07 [facility] [place] [facility] [facility] Outpatient Encounter [id number] 05/07 [facility] Outpatient Encounter [id number] 05/08 [facility] Outpatient Encounter [id number] 05/11 [facility] Outpatient Encounter [id number] 05/12 [facility] ASSMT/REAS SESSMENT [id number] Diagnos is: ICD-10- CM Z71.89 Other specifi ed counseling department chair GRAYSON Erickson 05/12 [facility] RADHA Phillips [facility] Outpatient Encounter [id number] 05/12 [facility] [place] [facility] Outpatient Encounter [id number] 05/15 [facility] [place] [facility] OFFICE O/P EST LOW 20 MIN [id number] Diagnos is: ICD-10- CM F33.40 Major depress medhat disorde r, recurre nt, in remissi on, unsp [facility] CHEUNG G 05/22 [facility] [place] [place] [facility] Outpatient Encounter [id number]/22 [facility] [place] [facility] [place] [facility] Outpatient Encounter [id number] 06/02 [facility] [place] [facility] [place] [facility] OFF/OP EST MARCH X REQ PHY/QHP [id number] 1. Diagnos is: ICD-10- CM F41.1 General ized anxiety disorde r Alyssa CATRER ATRICIAnaya Julien 06/15 [place] [facility] [place] [facility] FAC[facility] FEE [id number] 1BY. 50 Diagnos is: ICD-10- CM F33.40 Major depress medhat disorde r, recurre nt, in remissi on, unsp AMY CHAN 06/17 [facility] OFF[facility] O/P EST HI 40 MIN [id number] Diagnos is: ICD-10- CM F33.40 Major depress medhat disorde r, recurre nt, in remissi on, unsp SKYE,ST EVEN G 06/17 [place] [facility] En[facility] [id number] 06/17 [facility] [id number] 06/18 [facility] HC PRO PHONE CALL 11-20 MIN [id number] Diagnos is: ICD-10- CM F41.1 General ized anxiety disorde r Alyssa AMAYA 06/18 [facility] Encounter [id number] 06/18 [facility] OFF/OP EST MAY X REQ PHY/QHP [id number] [id number] Diagnos is: ICD-10- CM R45.851 Suicida l ideatio RAMON Lr 06/18 [facility] Outpatient Encounter [id number] Alyssa AMAYA 06/18 [facility] Inpatient Encounter [id number] 06/18 [facility] OFFICE O/P EST HI 40 MIN [id number] [id number] Diagnos is: ICD-10- CM F41.1 General ized anxiety disorde r IRWIN OROZCO 06/18 [facility] Inpatient Encounter [id number] Admit Reason: ANXIETY AND DEPRESS ION MIGUELANGEL MAHONEY 06/18 Regular discharge from inpatient treatment. [facility] Inpatient Encounter [id number] 06/18 [facility] Inpatient Encounter [id number] 06/18 [facility] Inpatient Encounter [id number] 06/18 [facility] 1ST HOSP IP/OBS HIGH 75 [id number] [id number] Diagnos is: ICD-10- CM F33.40 Major depress medhat disorde r, recurre nt, in remissi on, unsp MIGUELANGEL MAHONEY 06/19 [facility] 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 [employer]U [id number] Diagnos is: ICD-10- CM Z71.81 Spiritu al or religio us counseling department chair JOSH Larsen 06/19 [facility] GROUP PSYCHOTHER APY [id number] Diagnos is: ICD-10- CM F33.40 Major depress medhat disorde r, recurre nt, in remissi on, unsp TA ESPINOZA SIMONA 06/19 [facility] CASE MANAGEMENT [id number] Diagnos is: ICD-10- CM F33.40 Major depress medhat disorde r, recurre nt, in remissi on, unsp JAMAAL GRIMES N N 06/19 [facility] GROUP PSYCHOTHER APY [id number] Diagnos is: ICD-10- CM F33.40 Major depress medhat disorde r, recurre nt, in remissi on, unsp ESPINOZA,TA SIMONA 06/19 [facility] Inpatient Encounter [id number] 06/19 [facility] RE[facility] [id number] Diagnos is: ICD-10- CM Z13.6 Encount er for screeni ng for cardiov ascular disorde rs Bartolo TOSCANO 06/20 [place] [facility] 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 [employer]U [id number]. [id number] Diagnos is: ICD-10- CM Z71.81 Spiritu al or religio us counseling department chair JOSH Larsen 06/20 [facility] ELECTROCAR DIOGRAM TRACING [id number] MEAGAN SLADE 06/20 [facility] GROUP THERAPEUTI C PROCEDURES [id number] Diagnos is: ICD-10- CM F33.40 Major depress medhat disorde r, recurre nt, in remissi on, unsp ZIEGLER,MEL A 06/21 [facility] GROUP THERAPEUTI C PROCEDURES [id number] [id number] Diagnos is: ICD-10- CM F33.40 Major depress medhat disorde r, recurre nt, in remissi on, unsp ZIEGLER,MEL A 06/21 [facility] SBSQ HOSP IP/OBS MODERATE 35 [id number] Diagnos is: ICD-10- CM F33.40 Major depress medhat disorde r, recurre nt, in remissi on, unsp MIGUELANGEL MAHONEY M 06/22 [facility] CASE MANAGEMENT [id number] Diagnos is: ICD-10- CM F33.40 Major depress medhat disorde r, recurre nt, in remissi on, unsp JAMAAL GRIMES N 06/22 [facility] GROUP PSYCHOTHER APY [id number] Diagnos is: ICD-10- CM F33.40 Major depress medhat disorde r, recurre nt, in remissi on, unsp ESPINOZA,EM SIMONA 06/22 [facility] 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 [employer] [id number] [id number] Diagnos is: ICD-10- CM Z71.81 Spiritu al or religio us counseling department chair India Bueno 06/22 [facility] Inpatient Encounter [id number] 06/22 [facility] SBSQ HOSP IP/OBS MODERATE 35 [id number] [id number] Diagnos is: ICD-10- CM F33.40 Major depress medhat disorde r, recurre nt, in remissi on, unsp MIGUELANGEL MAHONEY M 06/23 [facility] Inpatient Encounter [id number] Diagnos is: ICD-10- CM F33.40 Major depress medhat disorde r, recurre nt, in remissi on, unsp OLGA,EM SIMONA 06/23 [facility] CASE MANAGEMENT [id number] Diagnos is: ICD-10- CM F33.40 Major depress medhat disorde r, recurre nt, in remissi on, unsp JAMAAL GRIMES N N 06/23 [facility] GROUP PSYCHOTHER APY [id number] [id number] Diagnos is: ICD-10- CM F41.9 Anxiety disorde r, unspeci fied ESPINOZA,EM SIMONA 06/23 [facility] SBSQ HOSP IP/OBS MODERATE 35 92003-6.63 [id number] Diagnos is: ICD-10- CM F33.40 Major depress medhat disorde r, recurre nt, in remissi on, unsp MIGUELANGEL MAHONEY M 06/24 [facility] GROUP THERAPEUTI C PROCEDURES [id number] [id number] Diagnos is: ICD-10- CM F33.40 Major depress medhat disorde r, recurre nt, in remissi on, unsp MEL ZIEGLER A 06/24 [facility] CASE MANAGEMENT [id number] Diagnos is: ICD-10- CM F33.40 Major depress medhat disorde r, recurre nt, in remissi on, unsp JAMAAL GRIMES N N 06/24 [facility] GROUP PSYCHOTHER APY [id number] Diagnos is: ICD-10- CM F33.40 Major depress medhat disorde r, recurre nt, in remissi on, unsp ESPINOZA,TA SIMONA 06/24 [facility] GROUP PSYCHOTHER APY [id number] [id number] Diagnos is: ICD-10- CM F41.1 General ized anxiety disorde r ESPINOZA,TA SIMONA 06/24 [facility] FAMILY PSYTX W/PT 50 MIN [id number] [id number] Diagnos is: ICD-10- CM F41.1 General ized anxiety disorde r Alyssa AMAYA 06/24 [facility] 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 [employer] [id number] [id number] Diagnos is: ICD-10- CM Z71.81 Spiritu al or religio us counseling department chair Inida Bueno 06/24 [facility] Inpatient Encounter [id number] Diagnos is: ICD-10- CM F33.40 Major depress medhat disorde r, recurre nt, in remissi on, unsp ESPINOZA,EM SIMONA 06/24 [facility] SBSQ HOSP IP/OBS MODERATE 35 [id number] [id number] Diagnos is: ICD-10- CM F33.40 Major depress medhat disorde r, recurre nt, in remissi on, unsp MIGUELANGEL MAHONEY M 06/25 [facility] CASE MANAGEMENT [id number] Diagnos is: ICD-10- CM F33.40 Major depress medhat disorde r, recurre nt, in remissi on, unsp JAMAAL GRIMES N N 06/25 [facility] Inpatient Encounter [id number] 06/25 [facility] GROUP PSYCHOTHER APY [id number] Diagnos is: ICD-10- CM F42.9 Obsessi ve-comp ulsive disorde r, unspeci fied ESPINOZA,EM SIMONA 06/25 [facility] Inpatient Encounter [id number] Diagnos is: ICD-10- CM F33.40 Major depress medhat disorde r, recurre nt, in remissi on, unsp ESPINOZA,EM SIMONA 06/25 [facility] Inpatient Encounter [id number] 06/25 [facility] GROUP THERAPEUTI C PROCEDURES [id number] [id number] Diagnos is: ICD-10- CM F33.40 Major depress medhat disorde r, recurre nt, in remissi on, unsp MEL ZIEGLER A 06/26 [facility] CASE MANAGEMENT [id number] Diagnos is: ICD-10- CM F33.40 Major depress medhat disorde r, recurre nt, in remissi on, unsp JAMAAL GRIMES N 06/26 [facility] GROUP PSYCHOTHER APY [id number] Diagnos is: ICD-10- CM F42.9 Obsessi ve-comp ulsive disorde r, unspeci fied OLGA,EM SIMONA 06/26 [facility] GROUP PSYCHOTHER APY [id number] [id number] Diagnos is: ICD-10- CM F42.9 Obsessi ve-comp ulsive disorde r, unspeci fied OLGA,EM SIMONA 06/26 [facility] SBSQ HOSP IP/OBS HIGH 50 [id number] [id number] MARICRUZ ARIAS 06/26 [facility] SBSQ HOSP IP/OBS SF/LOW 25 [id number] [id number] Diagnos is: ICD-10- CM F33.40 Major depress medhat disorde r, recurre nt, in remissi on, unsp ST RENATA FIGUEROA G 06/27 [facility] 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 [employer] [id number] [id number] Diagnos is: ICD-10- CM Z71.81 Spiritu al or religio us counseling department chair ing JOSH RICEBartolo M 06/27 [facility] GROUP PSYCHOTHER APY [id number] Diagnos is: ICD-10- CM F33.40 Major depress medhat disorde r, recurre nt, in remissi on, unsp REGGIE ARANGO SEA 06/28 [facility] SBSQ HOSP IP/OBS SF/LOW 25 [id number] [id number] Diagnos is: ICD-10- CM F33.40 Major depress medhat disorde r, recurre nt, in remissi on, unsp ST RENATA FIGUEROA G 06/28 [facility] CASE MANAGEMENT [id number] Diagnos is: ICD-10- CM F33.40 Major depress medhat disorde r, recurre nt, in remissi on, unsp CORNELIOJAMAAL Phillips N 06/29 [facility] GROUP PSYCHOTHER APY [id number] Diagnos is: ICD-10- CM F42.9 Obsessi ve-comp ulsive disorde r, unspeci fied OLGAEM SIMONA 06/29 [facility] SBSQ HOSP IP/OBS HIGH 50 [id number] [id number] Diagnos is: ICD-10- CM F42.9 Obsessi ve-comp ulsive disorde r, unspeci fied MARICRUZ ARIAS 06/29 [facility] CASE MANAGEMENT [id number] 1. Diagnos is: ICD-10- CM F33.40 Major depress medhat disorde r, recurre nt, in remissi on, unsp JAMAAL GRIMES N 06/30 [facility] GROUP PSYCHOTHER APY [id number] 1. Diagnos is: ICD-10- CM F42.9 Obsessi ve-comp ulsive disorde r, unspeci fied ELLY HORN 06/30 [facility] SBSQ HOSP IP/OBS HIGH 50 [id number] [id number] Diagnos is: ICD-10- CM F42.9 Obsessi ve-comp ulsive disorde r, unspeci fied MARICRUZ ARIAS 06/30 [facility] SBSQ HOSP IP/OBS MODERATE 35 00954-7.63 [id number] Diagnos is: ICD-10- CM F42.9 Obsessi ve-comp ulsive disorde r, unspeci fied MIGUELANGEL MAHONEY 07/01 [facility] GROUP THERAPEUTI C PROCEDURES [id number] [id number] Diagnos is: ICD-10- CM F33.40 Major depress medhat disorde r, recurre nt, in remissi on, unsp ZIEGLER,MEL A 07/01 [facility] CASE MANAGEMENT [id number] Diagnos is: ICD-10- CM F33.40 Major depress medhat disorde r, recurre nt, in remissi on, unsp JAMAAL GRIMES N N 07/01 [facility] GROUP PSYCHOTHER APY [id number] Diagnos is: ICD-10- CM F42.9 Obsessi ve-comp ulsive disorde r, unspeci fied ESPINOZATA SIMONA 07/01 [facility] QNHP OL DIG ASSMT&MGMT 11- [id number] [id number] Diagnos is: ICD-10- CM F33.40 Major depress medhat disorde r, recurre nt, in remissi on, unsp LUCINDA COOPER 07/01 [facility] SBSQ HOSP IP/OBS HIGH 50 64638-6.63 [id number] Diagnos is: ICD-10- CM F42.9 Obsessi ve-comp ulsive disorde r, unspeci fied MIGUELANGEL MAHONEY M 07/02 [facility] GROUP THERAPEUTI C PROCEDURES [id number] [id number] Diagnos is: ICD-10- CM F33.40 Major depress medhat disorde r, recurre nt, in remissi on, unsp ZIEGLER,MEL A 07/02 [facility] 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 [employer] [id number] [id number] Diagnos is: ICD-10- CM Z71.81 Spiritu al or religio us counseling department chair India Bueno 07/02 [facility] CASE MANAGEMENT [id number] [id number] Diagnos is: ICD-10- CM F33.40 Major depress medhat disorde r, recurre nt, in remissi on, unsp JAMAAL GRIMES N 07/02 [facility] SELF-HELP/ PEER SVC PER 15MIN 54005-8.63 [id number] Diagnos is: ICD-10- CM F41.9 Anxiety disorde r, unspeci fied JOSEMANUEL YEN R 07/02 [facility] H[facility] IP/OBS DSCHRG MGMT >30 23944-5.63 [id number] Diagnos is: ICD-10- CM F42.9 Obsessi ve-comp ulsive disorde r, unspeci fied MIGUELANGEL MAHONEY 07/03 [facility] 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 Diagnos is: ICD-10- CM F33.40 Major depress medhat disorde r, recurre nt, in remissi on, unsp CORNELIO,JAMAAL N N 07/03 [facility] Inpatient Encounter [id number] 1.07/03 [facility] OFF[facility] O/P EST MOD 30 MIN 89359-3.63 1BY. 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 37 Diagnos is: ICD-10- CM R73.9 Hypergl ycemia, unspeci fied TYSHAWNLEA,CAR MEN F 07/08 [facility] Outpatient [facility]counter [id number] 1[facility]07/08 [facility] Outpatient Encounter [id number] 1. 07/08 [facility] COMMUNITY/ WORK REINTEGRAT ION 30128-4.63 [id number] Diagnos is: ICD-10- CM Z56.0 Unemplo yment, unspeci fied [facility]09 [facility] PSYTX W PT 60 MINUTES 05019-8.63 [id number] Diagnos is: ICD-10- CM F33.40 Major depress medhat disorde r, recurre nt, in remissi on, [facility], 07/09 [facility] GROUP PSYCHOTHER APY [id number] Diagnos is: ICD-10- CM F33.40 Major depress medhat disorde r, recurre nt, in remissi on, [facility], ANAHI 07/10 [facility] [place] SELF-HELP/ PEER SVC PER 15MIN 83050-0.63 [id number] Diagnos is: ICD-10- CM F41.9 Anxiety disorde r, unspeci fied OESTREICHELSY ARMIJO 07/14 [place] [facility] COMMUNITY/ WORK REINTEGRAT ION 54520-6.63 [id number] Diagnos is: ICD-10- CM Z56.0 Unemplo yment, unspeci fied [facility]15 [facility] [place] LD PSYTX W PT 45 MINUTES 71149-7.63 [id number] Diagnos is: ICD-10- CM F33.40 Major depress medhat disorde r, recurre nt, in remissi on, unsp PAYTON GEORGE 07/17 [place] [facility] GROUP PSYCHOTHER APY [id number] Diagnos is: ICD-10- CM F41.9 Anxiety disorde r, unspeci fied MADHAVI, 07/17 [facility] [place] [facility] [place] Outpatient Encounter [id number] 07/17 [facility] [place] OFFICE O/P EST LOW 20 MIN [id number] Diagnos is: ICD-10- CM F33.40 Major depress medhat disorde r, recurre nt, in remissi on, unsp [facility] CHEUNG G 07/23 [facility] PSYCHOTHER APY [id number] 1. Diagnos is: ICD-10- CM F33.40 Major depress medhat disorde r, recurre nt, in remissi on, unsp [facility], [facility]24 [facility] [place] [facility] [place] ([facility]) [place] [id number] Diagnos is: ICD-10- CM R63.6 Underwe ight ADELINE BERG A 07/24 MAX[facility] ([facility]) [facility] FAMILY PSYTX W/PT 50 MIN 38149-0.63 [id number] Diagnos is: ICD-10- CM F33.40 Major depress medhat disorde r, recurre nt, in remissi on, unsp PAYTON GEORGE G 07/27 [facility] Out[facility] Encounter [id number] 07/28 [facility] [place] [facility] COMMUNITY/ WORK REINTEGRAT ION [id number] Diagnos is: ICD-10- CM Z56.0 Unemplo yment, unspeci fied [facility] SAM 07/29 [facility] Encounter [id number] 08/03 [facility] [place] [facility] [place] PSYTX W PT 45 MINUTES [id number] Diagnos is: ICD-10- CM F41.1 General ized anxiety disorde r LIBRADOSHAHRAM PAYTON Ramesh 08/05 [place] [facility] PS[facility] APY [id number] Diagnos is: ICD-10- CM F33.40 Major depress medhat disorde r, recurre nt, in remissi on, unsp [facility] 08[facility]07 [facility] [place] [facility] [place] OFFICE O/P EST HI 40 MIN [id number] [id number] Diagnos is: ICD-10- CM F33.40 Major depress medhat disorde r, recurre nt, in remissi on, unsp [facility] CHEUNG 08/11 [place] W PT 45 MINUTES [id number] [id number] Diagnos is: ICD-10- CM F41.1 General ized anxiety disorde r PAYTON GEORGE 08/12 [place] [facility] PS[facility]Y [id number] Diagnos is: ICD-10- CM F41.9 Anxiety disorde r, unspeci fied [facility] ANAHI 08/14 [facility] [place] [facility] W PT 45 MINUTES [id number] [id number] Diagnos is: ICD-10- CM F33.2 Major depress v disorde r, recurre nt severe w/o psych feature s PAYTON GEORGE 08/19 [place] [facility] MED NUTRITION INDIV SUBSEQ [id number] Diagnos is: ICD-10- CM R63.6 Underwe ight ADELINE BERG 08/20 [facility] Outpatient Encounter [id number] 08/21 [facility] [place] Outpatient Encounter [id number] 08/21 [facility] [place] [facility] Outpatient Encounter [id number] 08/24 [facility] [place] [facility] [place] OFFICE O/P EST MOD 30 MIN 09149-7.63 [id number] Diagnos is: ICD-10- CM F33.40 Major depress medhat disorde r, recurre nt, in remissi on, unsp CHEUNG,ST EVEN G 08/25 [facility] [place] PSY[place] W PT 45 MINUTES [id number] [id number] Diagnos is: ICD-10- CM F41.1 General ized anxiety disorde r PAYTON GEORGE 08/25 [place] [facility] [place] Outpatient Encounter [id number] [facility] [place] [facility] [place] OFFICE O/P EST MOD 30 MIN 38906-4.63 [id number] Diagnos is: ICD-10- CM F33.40 Major depress medhat disorde r, recurre nt, in remissi on, unsp CHEUNG,ST EVEN G 08/31 [place] [facility] Outpatient Encounter [id number] 09/02 [facility] [place] PSY[place] W PT 45 MINUTES [id number] Diagnos is: ICD-10- CM F33.2 Major depress v disorde r, recurre nt severe w/o psych feature s PAYTON GEORGE G 09/03 [place] [facility] Outpatient Encounter [id number] 1.09/07 [facility] Outpatient Encounter [id number] 1.09/14 [facility] [place] O/P EST LOW 20 MIN [id number] Diagnos is: ICD-10- CM F33.40 Major depress medhat disorde r, recurre nt, in remissi on, unsp CHEUNG,ST EVEN G 09/15 [place] [facility] Outpatient Encounter [id number] 09/15 [facility] MED NUTRITION INDIV SUBSEQ [id number] Diagnos is: ICD-10- CM R63.6 Underwe ight MARCOS BERGIA A 09/17 [facility] Outpatient Encounter [id number] 09/22 [facility] Outpatient Encounter [id number] 10/01 [facility] [place] OFF[place] O/P EST LOW 20 MIN [id number] Diagnos is: ICD-10- CM F33.40 Major depress medhat disorde r, recurre nt, in remissi on, unsp CHEUNG, EVEN G 10/06 [place] [facility] Outpatient Encounter [id number] 10/09 [facility] Outpatient Encounter [id number] 10/21 [facility] [place] OFF[place] O/P EST MOD 30 MIN [id number] Diagnos is: ICD-10- CM F33.40 Major depress medhat disorde r, recurre nt, in remissi on, unsp CHEUNG, EVEN G 10/27 [place] O/P EST LOW 20 MIN [id number] Diagnos is: ICD-10- CM F33.40 Major depress medhat disorde r, recurre nt, in remissi on, unsp CHEUNG, EVEN G 11/10 [place] [facility] Outpatient Encounter [id number] 11/18 [facility] Outpatient Encounter [id number] 11/25 [facility] [place] PSY[place] W PT 45 MINUTES [id number] Diagnos is: ICD-10- CM F41.1 General ized anxiety disorde r PAYTON GEORGE 11/26 [place] [facility] Out[facility] Encounter [id number] 11/27 [facility] [place] W PT 45 MINUTES [id number] Diagnos is: ICD-10- CM F33.1 Major depress medhat disorde r, recurre nt, moderat dwight PAYTON GEORGE Ramesh [facility] Outpatient Encounter [id number] 12/09 [facility] [place] FAMILY PSYTX W/PT 50 MIN [id number] Diagnos is: ICD-10- CM F33.1 Major depress medhat disorde r, recurre nt, moderat e PAYTON GEORGE [facility] EST LOW 20 MIN [id number] Diagnos is: ICD-10- CM F33.40 Major depress medhat disorde r, recurre nt, in remissi on, unsp [facility] CHEUNG G 12/11 [facility] LD PSYTX W PT 45 MINUTES [id number] Diagnos is: ICD-10- CM F33.2 Major depress v disorde r, recurre nt severe w/o psych feature s PAYTON GEORGE 12[facility]15 [facility] Outpatient Encounter [id number] 12[facility]15 [facility] [place] PSY[place] W PT 45 MINUTES [id number] Diagnos is: ICD-10- CM F33.2 Major depress v disorde r, recurre nt severe w/o psych feature s PAYTON GEORGE [facility] Outpatient Encounter [id number] 12/25 [facility] Procedures Combined list of: 1) Procedures from [facility] of Veterans Affairs facilities going back up to thelast 18 months, not all VA non-surgical procedures are included; 2) All procedures from the Department of Defense facilities. Procedure Procedure Type Code Date Perfomer Comments Sour e MEDICAL NUTRITION THERAPY; INITIAL ASSESSMENT AND INTERVENTION, INDIVIDUAL, [id number] WITH THE PATIENT, EACH 15 MINUTES 02/04/20 09 [facility] PREPARATION OF REPORT OF PATIENT'S PSYCHIATRIC STATUS, HISTORY, TREATMENT, OR PROGRESS (OTHER THAN FOR LEGAL OR CONSULTATIVE PURPOSES) FOR OTHER INDIVIDUALS, AGENCIES, OR INSURANCE CARRIERS 05/02/20 12 [facility] INDIVIDUAL PSYCHOTHERAPY, INSIGHT ORIENTED, BEHAVIOR MODIFYING AND/OR SUPPORTIVE, IN AN OFFICE OR OUTPATIENT FACILITY, APPROXIMATELY 20 TO 30 MINUTES [id number] W THE PATIENT; W MED EVAL & MGT SER 12/11/19 12 [facility] INDIVIDUAL PSYCHOTHERAPY, INSIGHT ORIENTED, BEHAVIOR MODIFYING AND/OR SUPPORTIVE, IN AN OFFICE OR OUTPATIENT FACILITY, APPROXIMATELY 45 TO 50 MINUTES QCPG-TB-TEAB WITH THE PATIENT 10/30/20 11 [facility] PHARMACOLOGIC MANAGEMENT, INCLUDING PRESCRIPTION, USE, AND REVIEW OF MEDICATION WITH NO MORE THAN MINIMAL MEDICAL PSYCHOTHERAPY 09/12/20 11 [facility] INDIVIDUAL PSYCHOTHERAPY, INSIGHT ORIENTED, BEHAVIOR MODIFYING AND/OR SUPPORTIVE, IN AN OFFICE OR OUTPATIENT FACILITY, APPROXIMATELY 75 TO 80 MINUTES WUZX-KC-GZIO WITH THE PATIENT 09/06/20 11 [facility] INDIVIDUAL PSYCHOTHERAPY, INSIGHT ORIENTED, BEHAVIOR MODIFYING AND/OR SUPPORTIVE, IN AN OFFICE OR OUTPATIENT FACILITY, APPROXIMATELY 75 TO 80 MINUTES YROX-FZ-[id number] WITH THE PATIENT 08/16/20 11 [facility] PHARMACOLOGIC MANAGEMENT, INCLUDING PRESCRIPTION, USE, AND REVIEW OF MEDICATION WITH NO MORE THAN MINIMAL MEDICAL PSYCHOTHERAPY 08/15/20 11 [facility] INDIVIDUAL PSYCHOTHERAPY, INSIGHT ORIENTED, BEHAVIOR MODIFYING AND/OR SUPPORTIVE, IN AN OFFICE OR OUTPATIENT FACILITY, APPROXIMATELY 75 TO 80 MINUTES ONKQ-RP-FJQX WITH THE PATIENT 06/07/20 11 [facility] INDIVIDUAL PSYCHOTHERAPY, INSIGHT ORIENTED, BEHAVIOR MODIFYING AND/OR SUPPORTIVE, IN AN OFFICE OR OUTPATIENT FACILITY, APPROXIMATELY 45 TO 50 MINUTES CHYC-AK-[id number] W THE PATIENT; W MED EVAL & MGT SER 06/05/20 11 [facility] INDIVIDUAL PSYCHOTHERAPY, INSIGHT ORIENTED, BEHAVIOR MODIFYING AND/OR SUPPORTIVE, IN AN OFFICE OR OUTPATIENT FACILITY, APPROXIMATELY 75 TO 80 MINUTES MNMX-MF-[id number] WITH THE PATIENT 05/29/20 11 [facility] INDIVIDUAL PSYCHOTHERAPY, INSIGHT ORIENTED, BEHAVIOR MODIFYING AND/OR SUPPORTIVE, IN AN OFFICE OR OUTPATIENT FACILITY, APPROXIMATELY 75 TO 80 MINUTES ZCJM-RQ-QICQ WITH THE PATIENT 05/25/20 11 [facility] DETERMINATION OF REFRACTIVE STATE 05/22/20 11 [facility] INDIVIDUAL PSYCHOTHERAPY, INSIGHT ORIENTED, BEHAVIOR MODIFYING AND/OR SUPPORTIVE, IN AN OFFICE OR OUTPATIENT FACILITY, APPROXIMATELY 75 TO 80 MINUTES RAFH-JB-TOPE WITH THE PATIENT 05/15/20 11 [facility] INDIVIDUAL PSYCHOTHERAPY, INSIGHT ORIENTED, BEHAVIOR MODIFYING AND/OR SUPPORTIVE, IN AN OFFICE OR OUTPATIENT FACILITY, APPROXIMATELY 75 TO 80 MINUTES DFPG-LA-UMFQ WITH THE PATIENT 05/10/20 11 [facility] INDIVIDUAL PSYCHOTHERAPY, INSIGHT ORIENTED, BEHAVIOR MODIFYING AND/OR SUPPORTIVE, IN AN OFFICE OR OUTPATIENT FACILITY, APPROXIMATELY 75 TO 80 MINUTES [id number]-GA-[id number] WITH THE PATIENT 05/09/20 11 [facility] INDIVIDUAL PSYCHOTHERAPY, INSIGHT ORIENTED, BEHAVIOR MODIFYING AND/OR SUPPORTIVE, IN AN OFFICE OR OUTPATIENT FACILITY, APPROXIMATELY 75 TO 80 MINUTES TKQB-WH-WKFI WITH THE PATIENT 05/03/20 11 [facility] INDIVIDUAL PSYCHOTHERAPY, INSIGHT ORIENTED, BEHAVIOR MODIFYING AND/OR SUPPORTIVE, IN AN OFFICE OR OUTPATIENT FACILITY, APPROXIMATELY 75 TO 80 MINUTES NZJG-HI-SVWU WITH THE PATIENT 05/02/20 11 [facility] INDIVIDUAL PSYCHOTHERAPY, INSIGHT ORIENTED, BEHAVIOR MODIFYING AND/OR SUPPORTIVE, IN AN OFFICE OR OUTPATIENT FACILITY, APPROXIMATELY 75 TO 80 MINUTES AEJT-YH-OUEM WITH THE PATIENT 05/01/20 11 [facility] PSYCHIATRIC EVALUATION OF HOSPITAL RECORDS, OTHER PSYCHIATRIC REPORTS, PSYCHOMETRIC AND/OR PROJECTIVE TESTS, AND OTHER ACCUMULATED DATA FOR MEDICALDIAGNOSTIC PURPOSES 04/26/20 11 [facility] INDIVIDUAL PSYCHOTHERAPY, INSIGHT ORIENTED, BEHAVIOR MODIFYING AND/OR SUPPORTIVE, IN AN OFFICE OR OUTPATIENT FACILITY, APPROXIMATELY 75 TO 80 MINUTES HURA-LY-FIAG WITH THE PATIENT 04/25/20 11 [facility] INTERPRETATION OR EXPLANATION OF RESULTS OF PSYCHIATRIC, OTH MEDICAL EXAMS/PROCEDURES, OR OTH ACCUMULATED DATA TO FAMILY OR OTH RESPONSIBLE PERSONS,OR ADVISING THEM HOW TO ASSIST PATIENT 04/18/20 11 [facility] INTERPRETATION OR EXPLANATION OF RESULTS OF PSYCHIATRIC, OTH MEDICAL EXAMS/PROCEDURES, OR OTH ACCUMULATED DATA TO FAMILY OR OTH RESPONSIBLE PERSONS,OR ADVISING THEM HOW TO ASSIST PATIENT 03/29/20 11 [facility] INTERPRETATION OR EXPLANATION OF RESULTS OF PSYCHIATRIC, OTH MEDICAL EXAMS/PROCEDURES, OR OTH ACCUMULATED DATA TO FAMILY OR OTH RESPONSIBLE PERSONS,OR ADVISING THEM HOW TO ASSIST PATIENT 03/02/20 11 [facility] INTERPRETATION OR EXPLANATION OF RESULTS OF PSYCHIATRIC, OTH MEDICAL EXAMS/PROCEDURES, OR OTH ACCUMULATED DATA TO FAMILY OR OTH RESPONSIBLE PERSONS,OR ADVISING THEM HOW TO ASSIST PATIENT 02/28/20 11 [facility] INTERPRETATION OR EXPLANATION OF RESULTS OF PSYCHIATRIC, OTH MEDICAL EXAMS/PROCEDURES, OR OTH ACCUMULATED DATA TO FAMILY OR OTH RESPONSIBLE PERSONS,OR ADVISING THEM HOW TO ASSIST PATIENT 02/17/20 11 [facility] TELE ASSESS & MGT SRV PROV QUAL NONPHYS HLTH CARE PRO TO EST PAT,PARENT,GUARD NOT ORIG REL ASSESS & MGT SRV PROV W/IN PREV 7 DAYS NOR LEAD ASSESS & MGT SRV/PX W/IN NXT 24H/SOON APT; 11-20 MIN MED DIS 02/15/20 11 [facility] INTERPRETATION OR EXPLANATION OF RESULTS OF PSYCHIATRIC, OTH MEDICAL EXAMS/PROCEDURES, OR OTH ACCUMULATED DATA TO FAMILY OR OTH RESPONSIBLE PERSONS,OR ADVISING THEM HOW TO ASSIST PATIENT 01/31/20 11 [facility] ENVIRONMENTAL INTERVENTION FOR MEDICAL MGMT PURPOSES ON A PSYCHIATRIC PATIENT'S BEHALF WITH AGENCIES, EMPLOYERS, OR INSTITUTIONS 01/24/20 11 [facility] INDIVIDUAL PSYCHOTHERAPY, INSIGHT ORIENTED, BEHAVIOR MODIFYING AND/OR SUPPORTIVE, IN AN OFFICE OR OUTPATIENT FACILITY, APPROXIMATELY 75 TO 80 MINUTES QIKF-IK-HJWM WITH THE PATIENT 01/24/20 11 [facility] PHARMACOLOGIC MANAGEMENT, INCLUDING PRESCRIPTION, USE, AND REVIEW OF MEDICATION WITH NO MORE THAN MINIMAL MEDICAL PSYCHOTHERAPY 01/24/20 11 [facility] INTERPRETATION OR EXPLANATION OF RESULTS OF PSYCHIATRIC, OTH MEDICAL EXAMS/PROCEDURES, OR OTH ACCUMULATED DATA TO FAMILY OR OTH RESPONSIBLE PERSONS,OR ADVISING THEM HOW TO ASSIST PATIENT 01/20/20 11 [facility] INDIVIDUAL PSYCHOTHERAPY, INSIGHT ORIENTED, BEHAVIOR MODIFYING AND/OR SUPPORTIVE, IN AN OFFICE OR OUTPATIENT FACILITY, APPROXIMATELY 75 TO 80 MINUTES EMXC-SO-KLQL WITH THE PATIENT 01/19/20 11 [facility] ENVIRONMENTAL INTERVENTION FOR MEDICAL MGMT PURPOSES ON A PSYCHIATRIC PATIENT'S BEHALF WITH AGENCIES, EMPLOYERS, OR INSTITUTIONS 01/18/20 11 [facility] INTERPRETATION OR EXPLANATION OF RESULTS OF PSYCHIATRIC, OTH MEDICAL EXAMS/PROCEDURES, OR OTH ACCUMULATED DATA TO FAMILY OR OTH RESPONSIBLE PERSONS,OR ADVISING THEM HOW TO ASSIST PATIENT 01/18/20 11 [facility] INTERPRETATION OR EXPLANATION OF RESULTS OF PSYCHIATRIC, OTH MEDICAL EXAMS/PROCEDURES, OR OTH ACCUMULATED DATA TO FAMILY OR OTH RESPONSIBLE PERSONS,OR ADVISING THEM HOW TO ASSIST PATIENT 01/16/20 11 [facility] ENVIRONMENTAL INTERVENTION FOR MEDICAL MGMT PURPOSES ON A PSYCHIATRIC PATIENT'S BEHALF WITH AGENCIES, EMPLOYERS, OR INSTITUTIONS 01/13/20 11 [facility] INTERPRETATION OR EXPLANATION OF RESULTS OF PSYCHIATRIC, OTH MEDICAL EXAMS/PROCEDURES, OR OTH ACCUMULATED DATA TO FAMILY OR OTH RESPONSIBLE PERSONS,OR ADVISING THEM HOW TO ASSIST PATIENT 01/13/20 11 [facility] ENVIRONMENTAL INTERVENTION FOR MEDICAL MGMT PURPOSES ON A PSYCHIATRIC PATIENT'S BEHALF WITH AGENCIES, EMPLOYERS, OR INSTITUTIONS 01/12/20 11 [facility] INDIVIDUAL PSYCHOTHERAPY, INSIGHT ORIENTED, BEHAVIOR MODIFYING AND/OR SUPPORTIVE, IN AN OFFICE OR OUTPATIENT FACILITY, APPROXIMATELY 75 TO 80 MINUTES [id number]-PR-[id number] WITH THE PATIENT 01/10/20 11 [facility] INDIVIDUAL PSYCHOTHERAPY, INSIGHT ORIENTED, BEHAVIOR MODIFYING AND/OR SUPPORTIVE, IN AN OFFICE OR OUTPATIENT FACILITY, APPROXIMATELY 75 TO 80 MINUTES YBDT-XA-[id number] WITH THE PATIENT 01/04/20 11 [facility] INDIVIDUAL PSYCHOTHERAPY, INSIGHT ORIENTED, BEHAVIOR MODIFYING AND/OR SUPPORTIVE, IN AN OFFICE OR OUTPATIENT FACILITY, APPROXIMATELY 75 TO 80 MINUTES IJRX-GN-FFPW WITH THE PATIENT 12/29/19 11 [facility] INDIVIDUAL PSYCHOTHERAPY, INSIGHT ORIENTED, BEHAVIOR MODIFYING AND/OR SUPPORTIVE, IN AN OFFICE OR OUTPATIENT FACILITY, APPROXIMATELY 45 TO 50 MINUTES [id number]-DM-VTOW W THE PATIENT; W MED EVAL & MGT SER 12/26/19 11 [facility] INDIVIDUAL PSYCHOTHERAPY, INSIGHT ORIENTED, BEHAVIOR MODIFYING AND/OR SUPPORTIVE, IN AN OFFICE OR OUTPATIENT FACILITY, APPROXIMATELY 45 TO 50 MINUTES WDKJ-FB-FEIN W THE PATIENT; W MED EVAL & MGT SER 12/12/19 11 [facility] INDIVIDUAL PSYCHOTHERAPY, INSIGHT ORIENTED, BEHAVIOR MODIFYING AND/OR SUPPORTIVE, IN AN OFFICE OR OUTPATIENT FACILITY, APPROXIMATELY 45 TO 50 MINUTES WOZP-LY-PRBC WITH THE PATIENT 12/05/19 11 [facility] ENVIRONMENTAL INTERVENTION FOR MEDICAL MGMT PURPOSES ON A PSYCHIATRIC PATIENT'S BEHALF WITH AGENCIES, EMPLOYERS, OR INSTITUTIONS 12/01/19 11 [facility] INTERPRETATION OR EXPLANATION OF RESULTS OF PSYCHIATRIC, OTH MEDICAL EXAMS/PROCEDURES, OR OTH ACCUMULATED DATA TO FAMILY OR OTH RESPONSIBLE PERSONS,OR ADVISING THEM HOW TO ASSIST PATIENT 11/22/19 11 [facility] INDIVIDUAL PSYCHOTHERAPY, INSIGHT ORIENTED, BEHAVIOR MODIFYING AND/OR SUPPORTIVE, IN AN OFFICE OR OUTPATIENT FACILITY, APPROXIMATELY 45 TO 50 MINUTES VVVY-FT-FHNI W THE PATIENT; W MED EVAL & MGT SER 11/20/19 11 [facility] INDIVIDUAL PSYCHOTHERAPY, INSIGHT ORIENTED, BEHAVIOR MODIFYING AND/OR SUPPORTIVE, IN AN OFFICE OR OUTPATIENT FACILITY, APPROXIMATELY 45 TO 50 MINUTES IHJR-AR-TRKY WITH THE PATIENT 11/17/19 11 [facility] INDIVIDUAL PSYCHOTHERAPY, INSIGHT ORIENTED, BEHAVIOR MODIFYING AND/OR SUPPORTIVE, IN AN OFFICE OR OUTPATIENT FACILITY, APPROXIMATELY 45 TO 50 MINUTES IJRY-OP-XJDV WITH THE PATIENT 10/24/20 10 [facility] INTERPRETATION OR EXPLANATION OF RESULTS OF PSYCHIATRIC, OTH MEDICAL EXAMS/PROCEDURES, OR OTH ACCUMULATED DATA TO FAMILY OR OTH RESPONSIBLE PERSONS,OR ADVISING THEM HOW TO ASSIST PATIENT 10/20/20 10 [facility] PHARMACOLOGIC MANAGEMENT, INCLUDING PRESCRIPTION, USE, AND REVIEW OF MEDICATION WITH NO MORE THAN MINIMAL MEDICAL PSYCHOTHERAPY 10/17/20 10 [facility] INDIVIDUAL PSYCHOTHERAPY, INSIGHT ORIENTED, BEHAVIOR MODIFYING AND/OR SUPPORTIVE, IN AN OFFICE OR OUTPATIENT FACILITY, APPROXIMATELY 75 TO 80 MINUTES ELBM-ZD-FBMX WITH THE PATIENT 10/16/20 10 [facility] INDIVIDUAL PSYCHOTHERAPY, INSIGHT ORIENTED, BEHAVIOR MODIFYING AND/OR SUPPORTIVE, IN AN OFFICE OR OUTPATIENT FACILITY, APPROXIMATELY 45 TO 50 MINUTES QYCN-OT-CJAN WITH THE PATIENT 09/27/20 10 [facility] INDIVIDUAL PSYCHOTHERAPY, INSIGHT ORIENTED, BEHAVIOR MODIFYING AND/OR SUPPORTIVE, IN AN OFFICE OR OUTPATIENT FACILITY, APPROXIMATELY 75 TO 80 MINUTES VEPP-PH-GVCJ WITH THE PATIENT 09/20/20 10 [facility] INDIVIDUAL PSYCHOTHERAPY, INSIGHT ORIENTED, BEHAVIOR MODIFYING AND/OR SUPPORTIVE, IN AN OFFICE OR OUTPATIENT FACILITY, APPROXIMATELY 45 TO 50 MINUTES FZYX-QP-DNOM WITH THE PATIENT 09/19/20 10 [facility] ENVIRONMENTAL INTERVENTION FOR MEDICAL MGMT PURPOSES ON A PSYCHIATRIC PATIENT'S BEHALF WITH AGENCIES, EMPLOYERS, OR INSTITUTIONS 09/17/20 10 [facility] PSYCHIATRIC DIAGNOSTIC INTERVIEW EXAMINATION 09/11/20 10 [facility] PSYCHIATRIC DIAGNOSTIC INTERVIEW EXAMINATION 09/04/20 10 DoD SERVICE(S) PROVIDED ON AN EMERGENCY BASIS IN THE OFFICE, WHICH DISRUPTS OTHER SCHEDULED OFFICE SERVICES, IN ADDITION TO BASIC SERVICE 08/28/20 10 [facility] SCREENING PAPANICOLAOU SMEAR; OBTAINING, PREPARING AND CONVEYANCE OF CERVICAL OR VAGINAL SMEAR TO LABORATORY 12/13/19 10 [facility] Psychiatric Therapy Preparation of Psychiatric Status Report Psychiatric Therapy Preparation of Psychiatric Status Report [id number] 05/02/20 12 JAMEY HERNANDEZ DoD Psychotherapy Individual Approx 30 Min W/ Medical Evaluation & Management Psychotherapy Individual Approx 30 Min W/ Medical Evaluation & Management [id number] 12/11/19 12 TODD OLIVER DoD Psychotherapy Individual Approximately 45 Minutes Psychotherapy Individual Approximately 45 Minutes [id number] 10/30/20 11 JAMEY HERNANDEZ [facility] Psychotherapy With Medication Management Psychotherapy With Medication Management [id number] 09/12/20 11 MADISON CENTENO DoD Psychotherapy Individual Approximately 75-80 Minutes Psychotherapy Individual Approximately 75-80 Minutes [id number] 09/07/20 11 JAMEY HERNANDEZ DoD Psychotherapy Individual Approximately 75-80 Minutes Psychotherapy Individual Approximately 75-80 Minutes [id number] 08/16/20 11 JAMEY HERNANDEZ [facility] Psychotherapy With Medication Management Psychotherapy With Medication Management [id number] 08/15/20 11 [facility] CENTENO Psychotherapy Individual Approximately 75-80 Minutes Psychotherapy Individual Approximately 75-80 Minutes [id number] 06/08/20 11 JAMEY HERNANDEZ [facility] Psychotherapy Indiv Approx 45 Min W/ Medical Evaluation & Management Psychotherapy Indiv Approx 45 Min W/ Medical Evaluation & Management [id number] 06/05/20 11 MADISON CENTENO [facility] Psychotherapy Individual Approximately 75-80 Minutes Psychotherapy Individual Approximately 75-80 Minutes [id number] 05/29/20 11 JAMEY HERNANDEZ [facility] Psychotherapy Individual Approximately 75-80 Minutes Psychotherapy Individual Approximately 75-80 Minutes [id number] 05/26/20 11 JAMEY HERNANDEZ Ophthalmological New Patient Start Comprehensive Care Ophthalmological New Patient Start Comprehensive Care [id number] 05/22/20 11 STACIE THAKKAR [facility] Fitting Monofocal Except For Aphakia Spectacles Services Fitting Monofocal Except For Aphakia 61624 05/22/20 11 STACIE THAKKAR Determination Of Refractive State Determination Of Refractive State [id number] 05/22/20 11 STACIE THAKKAR Psychotherapy Individual Approximately 75-80 Minutes Psychotherapy Individual Approximately 75-80 Minutes 07165 05/15/20 11 MADISON CENTENO [facility] Psychotherapy Individual Approximately 75-80 Minutes Psychotherapy Individual Approximately 75-80 Minutes 33281 05/10/20 11 MADISON CENTENO Psychotherapy Individual Approximately 75-80 Minutes Psychotherapy Individual Approximately 75-80 Minutes 66151 05/09/20 11 JAMEY HERNANDEZ [facility] Psychotherapy Individual Approximately 75-80 Minutes Psychotherapy Individual Approximately 75-80 Minutes [id number] 05/03/20 11 JAMEY HERNANDEZ [facility] Psychotherapy Individual Approximately 75-80 Minutes Psychotherapy Individual Approximately 75-80 Minutes 38937 05/02/20 11 MADISON CENTENO Psychiatric Diagnostic Evaluation Review of Records and Reports Psychiatric Diagnostic Evaluation Review of Records and Reports [id number] 05/01/20 11 JAMEY HERNANDEZ [facility] Psychotherapy Individual Approximately 75-80 Minutes Psychotherapy Individual Approximately 75-80 Minutes [id number] 05/01/20 11 BUNTING-CECY E, MADISON F DoD Psychotherapy Individual Approximately 75-80 Minutes Psychotherapy Individual Approximately 75-80 Minutes [id number] 04/26/20 11 JAMEY HERNANDEZ DoD Psychiatric Therapy Counseling Family / Guardians Psychiatric Therapy Counseling Family / Guardians [id number] 04/19/20 11 JAMEY HERNANDEZ DoD Psychiatric Therapy Counseling Family / Guardians Psychiatric Therapy Counseling Family / Guardians [id number] 04/03/20 11 JAMEY HERNANDEZ Psychiatric Therapy Environmental Intervention Psychiatric Therapy Environmental Intervention 68615 03/14/20 11 JAMEY HERNANDEZ Psychiatric Therapy Counseling Family / Guardians Psychiatric Therapy Counseling Family / Guardians 60106 03/13/20 11 JAMEY HERNANDEZ DoD Psychiatric Therapy Counseling Family / Guardians Psychiatric Therapy Counseling Family / Guardians [id number] 02/17/20 11 JAMEY HERNANDEZ [facility] Non-Physician Phone Call To Pt/Provider Intermed (11-20 min) Non-Physician Phone Call To Pt/Provider Intermed (11-20 min) [id number] 02/15/20 11 NATALI BEE [facility] Psychiatric Therapy Counseling Family / Guardians Psychiatric Therapy Counseling Family / Guardians 73839 02/10/20 11 JAMEY HERNANDEZ [facility] Psychotherapy Individual Approximately 75-80 Minutes Psychotherapy Individual Approximately 75-80 Minutes 63489 01/25/20 11 JAMEY HERNANDEZ Psychotherapy With Medication Management Psychotherapy With Medication Management 23586 01/24/20 11 MADISON CENTENO DoD Psychiatric Therapy Counseling Family / Guardians Psychiatric Therapy Counseling Family / Guardians 62501 01/21/20 11 JAMEY HERNANDEZ [facility] Psychiatric Therapy Counseling Family / Guardians Psychiatric Therapy Counseling Family / Guardians [id number] 01/19/20 11 JAMEY HERNANDEZ Psychiatric Therapy Environmental Intervention Psychiatric Therapy Environmental Intervention 58105 01/19/20 11 JAMEY HERNANDEZ DoD Psychotherapy Indiv Approx 45 Min W/ Medical Evaluation & Management Psychotherapy Indiv Approx 45 Min W/ Medical Evaluation & Management 52325 12/26/19 11 MADISON CENTENO DoD Psychotherapy Indiv Approx 45 Min W/ Medical Evaluation & Management Psychotherapy Indiv Approx 45 Min W/ Medical Evaluation & Management 62215 12/13/19 11 MADISON CENTENO DoD Psychiatric Therapy Environmental Intervention Psychiatric Therapy Environmental Intervention 71628 12/07/19 11 JAMEY HERNANDEZ Psychiatric Therapy Counseling Family / Guardians Psychiatric Therapy Counseling Family / Guardians 81614 12/07/19 11 JAMEY HERNANDEZ [facility] Psychotherapy Individual Approximately 45 Minutes Psychotherapy Individual Approximately 45 Minutes 19917 12/05/19 11 JAMEY HERNANDEZ [facility] Psychiatric Therapy Counseling Family / Guardians Psychiatric Therapy Counseling Family / Guardians [id number] 12/05/19 11 JAMEY HERNANDEZ [facility] Psychotherapy Individual Approximately 45 Minutes Psychotherapy Individual Approximately 45 Minutes 32919 11/22/19 11 JAMEY HERNANDEZ [facility] Psychotherapy Individual Approximately 75-80 Minutes Psychotherapy Individual Approximately 75-80 Minutes 43601 11/22/19 11 JAMEY HERNANDEZ Do[facility] Psychotherapy Indiv Approx 45 Min W/ Medical Evaluation & Management Psychotherapy Indiv Approx 45 Min W/ Medical Evaluation & Management 69493 11/20/19 11 MADISON CENTENO Do[facility] Psychotherapy With Medication Management Psychotherapy With Medication Management 55053 10/17/20 10 MADISON CENTENO DoD Psychotherapy Individual Approximately 75-80 Minutes Psychotherapy Individual Approximately 75-80 Minutes 46217 09/20/20 10 MADISON CENTENO DoD Psychiatric Therapy Environmental Intervention Psychiatric Therapy Environmental Intervention 93658 09/17/20 10 JAMEY HERNANDEZ [facility] Psychiatric Diagnostic Evaluation Comprehensive Examination Psychiatric Diagnostic Evaluation Comprehensive Examination 58728 09/17/20 10 JAMEY HERNANDEZ [facility] Psychiatric Diagnostic Evaluation Comprehensive Examination Psychiatric Diagnostic Evaluation Comprehensive Examination 63230 09/04/20 10 TOÑO CRISOSTOMO Services Provided On An Emergency Basis In The Office 08/28/20 10 LEYLA PALMER [facility] Psychotherapy Individual Approximately 45 Minutes Psychotherapy Individual Approximately 45 Minutes [id number] 08/28/20 10 LEYLA PALMER [facility] Screening papanicolaou smear; obtaining, preparing and conveyance of cervical or vaginal smear to laboratory 12/13/19 10 PETER PAGAN [facility] Medical Nutrition Therapy Initial A e ment And Intervention Each 15 Minutes Medical Nutrition Therapy Initial Assessment And Intervention Each 15 Minutes [id number] 02/04/20 09 ODNNELL SPEARS [facility] Social History Combined list of available smoking, tobacco, and other social history from Department of Defense and Veterans Affairs facilities. Social History Type Response Date Comment [facility] e Tobacco smoking status [facility]-TOBACCO NEVER USED 02/07/20 [place] [facility]22 [place] [facility]2021 [place] [facility]2020 [place] History of tobacco use [facility]-TOBACCO NEVER USED 10/03/2018 [place] History of tobacco use LIFETIME NON-TOBACCO USER 7 [place] History of tobacco use LIFETIME NON-TOBACCO USER 6 [place] History of tobacco use LIFETIME NON-SMOKER 03/17/2014 [facility] History of tobacco use LIFETIME NON-TOBACCO USER 3 [place] This section is an empty social history section. [facility] Plan of Care List of future care activities from Department of [facility] facilities. Additional future care activities may be listed in the Assessment and Plan section. Date/Time Care Activity Care Activity Detail [facility] 01/01/2025 AMBULATORY - PSYCHIATRY [facility]BULAT[facility] - PSYCHIATRY AMBULATORY - PSYC [facility] [place] [facility] 02/12/2025 AMBULATORY - MEDICINE AMBULATORY - MEDICI [facility] 12/11/2024 Consult Order [facility] Cement Sprayer Helper's Choice [facility] Advance Directives List of completed, amended, or rescinded Advance Directives on record at Department of Veterans Affairs facilities. An actual copy of the Directive is not included. Date Advance Directive Provider Source 07/02/2024 ADVANCE DIRECTIVE DISCUSSION REYNALDO GRIMES [facility] [place] [facility] 04/14/2014 ADVANCE DIRECTIVE DISCUSSION ESTELA FLORENCE [facility]
--- NOTE | 2024-12-28 15:45 | A.ECONSULT ---
E-Consult Requesting Provider: gabriel Reason for request: TMS consult Was there a discussion with the requesting provider?: Yes Total time spent: >5 minutes Consulting Provider Opinion: labs ordered
== END 2024-12-28 15:09 | disposition home or self-care (01) ==
LOC: HO.HOP 15:08
PROVIDERS: Visit Provider Clinical Nurse Specialist Psychiatric/Mental Health
DX: F33.2 Major depressive disorder, recurrent severe without psychotic features (principal)
CPT/HCPCS: 99451

== ENCOUNTER 2024-12-28 15:08 | Outpatient (REF) | payer OTHER, SELFPAY ==
--- OUTSIDE RECORDS SUMMARY | 2024-12-28 15:18 | XMS_ITS | Continuity of Care Document ---
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 Name Role Phone [facility] Unavailable Unavailable Problems Combined list of problems [...] Active Condition DoD viral syndrome Inactive Condition [facility] Laboratory Studies Inactive Condition Do D Weight Too Low Active Condition DoD unusual / atypical behavior Inactive Condition DoD constipation Inactive Condition DoD upper back pain Active Condition DoD limb pain Active Condition DoD abdominal pain above the pubic area (suprapubic) Active Condition DoD urinary frequency increased Active Condition [facility] Administrative Evaluation Services Inactive Condition DoD abdominal pain feels crampy / colicky Active Condition [facility] visit for: administrative purpose Inactive Condition [facility] adjustment disorder with mixed emotional features Active Condition [facility] occupational problem Active Condition [facility] adjustment disorder with anxiety and depressed mood Active Condition [facility] dermatomycosis tinea versicolor Inactive Condition [facility] skin: rash [as Sx] Active Condition [facility] visit for: screening exam for malignant neoplasm cervix Active Condition [facility] routine gynecological exam with cervical pap smear Inactive Condition [facility] amenorrhea Active Condition [facility] visit for: contraceptive surveillance pill Inactive Condition [facility] current diet needs improvement Inactive Condition [facility] assessment of patient condition work status Active Condition [facility] Oral Contraceptives Active Condition [facility] Body Mass Index Inactive Condition [facility] underweight Active Condition [facility] Patient Education Dietary Active Condition [facility] Amenorrhea * (ICD-9-CM 626.0) Active Condition [facility] EL Anorexia * (ICD-9-CM 783.0) Active Condition [facility]CS Anorexia nervosa in remission (SNOMED CT 562271854) Active Condition [place] Anxiety Active Condition [place] Colonic Polyps Active Condition Feb 102012 Entered By: CHERELLE FELIX Comment: colonoscopy 2011 [place] Fatigue Syndrome, Chronic * (ICD-9-CM 780.71) Active Condition [facility] IELD Generalized anxiety disorder (SNOMED CT 89025634) Active Condition [place] Hyperglycaemia Active Condition [facility] IE Lactose intolerance Active [facility] [place] [facility] Major depressive disorder Active Condition [facility] Mixed hyperlipidaemia Active Condition [facility] LD Recurrent major depression Active Condition [place] Routine Gynecological examination Active Condition March 17, 2013 Entered By: GABI JOSEPH Comment: PAP (first one, I think) MARCH 23: Neg DysplasiaMay 2012 Entered By: GABI JOSEPH Comment: US, Pelvis MARCH 23: NL Study [place] Diagnosis: ICD-10-CM F33.2 Major depressv disorder, recurrent severe w/o psych features Active Diagnosis [facility] Diagnosis: ICD-10-CM F33.40 Major depressive disorder, recurrent, in remission, unsp Active Diagnosis [facility] LD Diagnosis: ICD-10-CM F33.1 Major depressive disorder, recurrent, moderate Active Diagnosis [place] Diagnosis: ICD-10-CM F41.1 Generalized anxiety disorder Active Diagnosis [facility] ELD Diagnosis: ICD-10-CM R63.6 Underweight Active Diagnosis [facility] [place] [facility] Diagnosis: ICD-10-CM F41.9 Anxiety disorder, unspecified Active Diagnosis [facility] [place] [facility] Diagnosis: ICD-10-CM Z56.0 Unemployment, unspecified Active Diagnosis [facility] [place] [facility] Diagnosis: ICD-10-CM R73.9 Hyperglycemia, unspecified Active Diagnosis [place] Diagnosis: ICD-10-CM F43.12 Post-traumatic stress disorder, chronic Active Diagnosis [place] Diagnosis: ICD-10-CM Z71.9 Counseling, unspecified Active Diagnosis [place] Diagnosis: ICD-10-CM F42.9 Obsessive-compulsi ve disorder, unspecified Active Diagnosis [facility] [place] [facility] Diagnosis: ICD-10-CM Z71.81 Spiritual or catholic counseling Active Diagnosis [facility] [place] [facility] Diagnosis: ICD-10-CM Z13.6 Encounter for screening for cardiovascular disorders Active Diagnosis [facility] Admit Reason: ANXIETY AND DEPRESSION Active Diagnosis [facility] Diagnosis: ICD-10-CM R45.851 Suicidal ideations Active Diagnosis [facility] Diagnosis: ICD-10-CM Z71.89 Other specified counseling Active Diagnosis [facility] Medications Combined list of outpatient medications from [...] MOOD/DEP RESSION ORAL DISCONT INUED (EDIT) 04/04/2025 [id number] Lis CHEUNG 2023 30 [place] ARIPIPRAZOL E 20MG TAB TAKE ONE-HALF TABLET BY MOUTH ONCE DAILY FOR MOOD/DEP RESSION ORAL DISCONT INUED BY PROVIDE R 05/08/2025 [id number] Lis CHEUNG 2023 30 [place] ARIPIPRAZOL E 5MG TAB TAKE ONE TABLET BY MOUTH ONCE DAILY FOR 4 DAYS, THEN TAKE ONE-HALF TABLET ONCE DAILY FOR 6 DAYS FOR MOOD/DEP RESSION ORAL DISCONT INUED BY PROVIDE R 07/17/2024 [id number] Lis CHEUNG 2023 7 [place] ARIPIPRAZOL E 5MG TAB TAKE ONE-HALF TABLET BY MOUTH ONCE DAILY FOR MOOD/DEP RESSION ORAL DISCONT INUED (EDIT) 02/07/2025 [id number] Lis CHEUNG 2023 30 [place] ARIPIPRAZOL E 5MG TAB TAKE ONE-HALF TABLET BY MOUTH ONCE DAILY FOR MOOD/DEP RESSION ORAL DISCONT INUED (EDIT) 02/14/2024 [id number] Lis CHEUNG 2023 15 [place] ASCORBIC ACID 500MG TAB TAKE TWO TABLETS BY MOUTH DAILY ORAL ACTIVE [place] RUIZ 2015 [place] BREXPIPRAZO LE 0.5MG TAB TAKE ONE TABLET BY MOUTH ONCE DAILY ORAL DISCONT INUED (EDIT) 08/01/2024 [id number] SKINNY MAHONEY M 2023 30 [place] [facility] [place] [facility] [facility] BREXPIPRAZO LE 1MG TAB TAKE ONE TABLET BY MOUTH ONCE DAILY FOR MAJOR DEPRESSI VE DISORDER ORAL DISCONT INUED (EDIT) 08/22/2024 [id number] Lis CHEUNG 2023 30 [place] BREXPIPRAZO LE 1MG TAB TAKE ONE TABLET BY MOUTH ONCE DAILY FOR MAJOR DEPRESSI VE DISORDER ORAL DISCONT INUED 08/05/2024 [id number] Lsi CHEUNG 2023 30 [place] BREXPIPRAZO LE 2MG TAB TAKE ONE TABLET BY MOUTH ONCE DAILY FOR MAJOR DEPRESSI VE DISORDER ORAL DISCONT INUED 09/10/2024 [id number] Lis CHEUNG 2023 30 [place] BREXPIPRAZO LE 2MG TAB TAKE ONE TABLET BY MOUTH ONCE DAILY FOR MAJOR DEPRESSI VE DISORDER ORAL 10/23/2024 [id number] Lis CHEUNG 2023 30 [place] DIAZEPAM 5MG TAB TAKE ONE TABLET BY MOUTH AT BEDTIME FOR ANXIETY/ NERVES ORAL DISCONT INUED BY PROVIDE R 01/01/2025 [id number] Lis CHEUNG 2024 7 [place] ENSURE PLUS LIQUID CHOCOLATE DRINK 1 CAN BY MOUTH TWICE DAILY FOR NUTRITIO NAL SUPPLEME NTATION ORAL ACTIVE 07/30/2025 [id number] RENETTA MG F 2023 192 [place] ESCITALOPRA M OXALATE 10MG TAB TAKE ONE TABLET BY MOUTH ONCE DAILY FOR MOOD - TAKE IN ADDITION TO 20MG TABLETS ORAL DISCONT INUED BY PROVIDE R 01/22/2025 [id number] Lis CHEUNG 2024 60 [place] ESCITALOPRA M OXALATE 10MG TAB TAKE ONE TABLET BY MOUTH ONCE DAILY FOR MOOD/DEP RESSION ORAL DISCONT INUED (EDIT) 09/16/2025 [id number] Lis CHEUNG 2023 60 [place] ESCITALOPRA M OXALATE 10MG TAB TAKE ONE-HALF TABLET BY MOUTH ONCE DAILY FOR MOOD/DEP RESSION ORAL DISCONT INUED (EDIT) 09/01/2025 [id number] Lis CHEUNG 2023 15 [place] ESCITALOPRA M OXALATE 20MG TAB TAKE TWO TABLETS BY MOUTH ONCE DAILY FOR MOOD/DEP RESSION ORAL ACTIVE 12/12/2025 [id number] Lis CHEUNG 2024 60 [place] ESCITALOPRA M OXALATE 20MG TAB TAKE ONE TABLET BY MOUTH ONCE DAILY FOR MOOD/DEP RESSION ORAL DISCONT INUED (EDIT) 11/11/2025 [id number] Lis CHEUNG 2023 60 [place] ESCITALOPRA M OXALATE 20MG TAB TAKE ONE TABLET BY MOUTH ONCE DAILY FOR MOOD/DEP RESSION ORAL DISCONT INUED (EDIT) 10/07/2025 [id number] Lis CHEUNG 2023 60 [place] FISH OIL 1000MG (500MG DHA/EPA) CAP,ORAL TAKE 1 CAPSULE BY MOUTH DAILY ORAL ACTIVE [place] RUIZ 2015 [place] LORAZEPAM 0.5MG TAB TAKE ONE TABLET BY MOUTH FOUR TIMES DAILY NEEDED FOR ANXIETY ORAL ACTIVE 01/10/2025 [id number] Lis CHEUNG 2024 100 [place] LORAZEPAM 0.5MG TAB TAKE ONE TABLET BY MOUTH TWICE DAILY NEEDED FOR ANXIETY ORAL DISCONT INUED (EDIT) 02/11/2025 [id number] Lis CHEUNG 2023 60 [place] LORAZEPAM 0.5MG TAB TAKE ONE TABLET BY MOUTH THREE TIMES A DAY FOR ANXIETY ORAL DISCONT INUED (EDIT) 08/22/2024 [id number] Lis CHEUNG 2023 90 [place] LORAZEPAM 0.5MG TAB TAKE ONE TABLET BY MOUTH EVERY 6 HOURS NEEDED FOR ANXIETY ORAL DISCONT INUED (EDIT) 08/01/2024 [id number] SKINNY MAHONEY M 2023 30 [facility] MIRTAZAPINE 30MG TAB TAKE ONE TABLET BY MOUTH AT BEDTIME FOR DEPRESSI ON/MOOD ORAL DISCONT INUED (EDIT) 07/24/2025 [id number] Lis CHEUNG 2023 30 [place] MIRTAZAPINE 30MG TAB TAKE ONE-HALF TABLET BY MOUTH AT BEDTIME FOR DEPRESSI ON/MOOD ORAL DISCONT INUED (EDIT) 07/07/2025 [id number] Lis CHEUNG 2023 15 [place] MIRTAZAPINE 30MG TAB TAKE ONE-HALF TABLET BY MOUTH AT BEDTIME FOR DEPRESSI ON/MOOD ORAL DISCONT INUED 08/01/2024 [id number] SKINNY MAHONEY M 2023 15 [facility] MIRTAZAPINE 45MG TAB TAKE ONE TABLET BY MOUTH AT BEDTIME FOR DEPRESSI ON/MOOD ORAL ACTIVE 11/11/2025 [id number] Lis CHEUNG 2024 30 [place] MIRTAZAPINE 45MG TAB TAKE ONE TABLET BY MOUTH AT BEDTIME FOR DEPRESSI ON/MOOD ORAL DISCONT INUED 09/16/2025 [id number] Lis CHEUNG 2023 30 [place] MIRTAZAPINE 45MG TAB TAKE ONE TABLET BY MOUTH AT BEDTIME FOR DEPRESSI ON/MOOD ORAL DISCONT INUED 08/12/2025 [id number] Lis CHEUNG 2023 30 [place] MULTIVITAMI NS CAP/TAB TAKE ONE TABLET BY MOUTH DAILY ORAL ACTIVE [place] RUIZ 2015 [place] QUETIAPINE FUMARATE 25MG TAB TAKE 1-2 TABLETS BY MOUTH AT BEDTIME NEEDED INSOMNIA /ANXIETY ORAL ACTIVE 01/17/2025 [id number] Lis CHEUNG G 2024 28 [place] VENLAFAXINE HCL 150MG 24HR CAP,SA TAKE TWO CAPSULES BY MOUTH ONCE DAILY ORAL DISCONT INUED BY PROVIDE R 07/07/2025 [id number] Lis CHEUNG 2023 60 [place] VENLAFAXINE HCL 150MG 24HR CAP,SA TAKE TWO CAPSULES BY MOUTH ONCE DAILY ORAL DISCONT INUED 08/01/2024 [id number] DENZELSKINNY Mcfarland M 2023 60 [facility] [facility] VENLAFAXINE HCL 150MG 24HR CAP,SA TAKE TWO CAPSULES BY MOUTH ONCE DAILY FOR MAJOR DEPRESSI VE DISORDER ORAL DISCONT INUED BY PROVIDE R 04/04/2025 [id number] Lis CHEUNG G 2023 120 [place] VENLAFAXINE HCL 37.5MG 24HR CAP,SA TAKE ONE CAPSULE BY MOUTH ONCE DAILY ORAL DISCONT INUED BY PROVIDE R 10/07/2025 [id number] Lis CHEUNG G 2023 30 [place] VENLAFAXINE HCL 75MG 24HR CAP,SA TAKE ONE CAPSULE BY MOUTH ONCE DAILY FOR MAJOR DEPRESSI VE DISORDER ORAL DISCONT INUED (EDIT) 08/12/2025 [id number] Lis CHEUNG G 2023 30 [place] VENLAFAXINE HCL 75MG 24HR CAP,SA TAKE THREE CAPSULES BY MOUTH ONCE DAILY FOR MAJOR DEPRESSI VE DISORDER ORAL DISCONT INUED (EDIT) 02/07/2025 [id number] Lis CHEUNG G 2023 180 [place] VENLAFAXINE HCL 75MG 24HR CAP,SA TAKE THREE CAPSULES BY MOUTH ONCE DAILY FOR MAJOR DEPRESSI VE DISORDER ORAL 01/31/2024 [id number] Lis CHEUNG G 2023 90 [facility]ELD VENLAFAXINE HCL 75MG 24HR CAP,SA TAKE ONE CAPSULE BY MOUTH ONCE DAILY TAKE IN ADDITION TO 150MG TABLET ORAL 12/24/2023 [id number] Lis CHEUNGEN G 2022 60 [place] Allergies, Adverse Reactions, Alerts Combined list [...] Site Reaction Lot Number CVX Code 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 Status Comments Source COVID-19 (MODERNA), MRNA, LNP-S, PF, 100 MCG/0.5 ML DOSE 2 2020 207 complet ed MOD; [id number]; 1 [place] [facility] [place] [facility] COVID-19 (MODERNA), MRNA, LNP-S, PF, 100 MCG/0.5 ML DOSE 1 2020 207 complet ed MOD; [id number]; 1 [facility] [place] [facility] [facility] INFLUENZA, UNSPECIFIED FORMULATION 2019 88 complet ed [facility] [place] [facility] [facility] FLU,3 YRS (HISTORICAL) 2015 88 complet ed Site: Right Deltoid [facility]ELD FLU,3 YRS (HISTORICAL) 2011 88 complet ed [facility] [place] [facility] [facility] DTAP, UNSPECIFIED FORMULATION 2011 107 complet ed [place] [facility] [place] [facility] influenza virus vaccine, live, attenuated, for intranasal use 1 2010 [id number] 111 [employer]. (MED) complet ed influenza virus vaccine, live, attenuate d, for intranasa l use [facility] influenza virus vaccine, split virus (incl. purified surface antigen)-reti red CODE 1 2009 [id number] [employer] (CSL) complet ed influenza virus vaccine, split virus (incl. purified surface antigen)- retired CODE DoD Novel influenza-H1N 1-09, injectable 1 2009 [id number] 127 Novartis [place]. (NOV) complet ed Novel influenza -J9T2-03, injectabl e DoD hepatitis A vaccine, adult dosage 2 2008 [id number] 52 [employer] (SKB) complet ed hepatitis A vaccine, adult dosage DoD influenza virus vaccine, live, attenuated, for intranasal use 1 2008 [id number] [employer] (MED) complet ed influenza virus vaccine, live, [...] adult dosage 1 2008 [id number] 52 [employer] (SKB) complet ed hepatitis A vaccine, adult dosage DoD poliovirus vaccine, inactivated 1 2008 [id number] Sanofi Pasteur ([facility]) complet ed polioviru s vaccine, inactivat ed DoD influenza virus vaccine, split virus (incl. purified surface antigen)-reti red CODE 1 2008 [id number] 15 [employer] (CS) complet ed influenza virus vaccine, split virus (incl. purified surface antigen)- retired CODE DoD meningococcal polysaccharid e (groups A, C, Y and W-135) diphtheria toxoid conjugate vaccine (MCV4P) 1 2008 [id number] Sanofi Pasteur ([facility]) complet ed meningoco ccal polysacch aride (groups A, C, Y and W-135) diphtheri a toxoid conjugate vaccine (MCV4P) DoD tetanus toxoid, reduced diphtheria toxoid, and acellular pertu is vaccine, adsorbed 1 [id number] [place], [place] [address]line (SKB) complet ed tetanus toxoid, reduced diphtheri a toxoid, and acellular pertussis vaccine, adsorbed DoD Results Combined list of recent chemistry, hematology and other laboratory results from Department of Defense and Veterans Affairs, ranging from 15 months to all on record, depending upon the facility. Order Name Results Value Reference Range Date Interpretation Specimen Comments Source COVID-19 SCREENIN G PANEL ([employer] Inc[employer] ) SARS-COV-2 (COVID-19) RNA [PRESENCE] IN RESPIRATOR [...] patient management decisions.C epheid FLUVID: HCPs: https://www .fda.gov/[place] jojo/272168/ download. Patients: https://www .fda.gov/ut jojo/040744/ download Ordering Provider: MARITZA SHAH Report Released Date/Time: Jul 03, 2024 12:29 PM Reporting Lab: [address] [address] Performing Lab: [address] [address] [facility] HCG QUAL, URINE CHORIOGONA DOTROPIN.B ETA SUBUNIT ( TEST) [PRESENCE] IN URINE NEGATIVE 06/22 Specimen Type: URINE No comment entered. Ordering Provider: MIGUELANGEL MAHONEY Report Released Date/Time: Jun 22, 2024 08:18 AM Reporting Lab: [address] [address] Performing Lab: [address] [address] [facility] HEMOGLOB IN A1C PANEL HEMOGLOBIN A1C/HEMOGL [...] Jun 19, 2024 11:44 AM Reporting Lab: [facility] [address] Performing Lab: [facility] WSTRN [facility] [address] [facility] LIPID PANEL FASTING CHOLESTERO L [MASS/VOLU ME] IN SERUM OR PLASMA 218 mg/dL 06/22 H Specimen Type: SERUM No comment entered. Ordering Provider: MIGUELANGEL MAHONEY Report Released Date/Time: Jun 19, 2024 11:44 AM Reporting Lab: [facility]RCRENSHA[facility]PITALTRN [facility] [address] Performing Lab: [facility] W[facility] [address] [facility] LIPID PANEL FASTING TRIGLYCERI DE [MASS/VOLU ME] IN SERUM OR PLASMA 81 mg/dL 0 - 150 06/22 Specimen Type: SERUM No comment entered. Ordering Provider: MIGUELANGEL MAHONEY Report Released Date/Time: Jun 19, 2024 11:44 AM Reporting Lab: [facility]ITALRCRENSHAW COMM[facility]OSPITALTRN [facility] [address] Performing Lab: [facility]RL W[facility]N [facility] [address] [facility]ITALRUNITED STATES MARINE HOSPITALN [facility]ITALUSE [facility] LIPID PANEL FASTING CHOLESTERO L IN LDL [MASS/VOLU ME] IN SERUM OR PLASMA BY CALCULATIO N 142 mg/dL 0 - 129 06/22 H Specimen Type: SERUM No comment entered. Ordering Provider: MIGUELANGEL MAHONEY Report Released Date/Time: Jun 19, 2024 11:44 AM Reporting Lab: [facility]ITALRCRENSHAW COMMUN[facility] HOSPITALTRN [facility] [address] Performing Lab: [facility]ITALRL TRN [facility]PITALUSENUVANCE [facility] [address] [facility] [address] [facility] LIPID PANEL FASTING CHOLESTERO L.TOTAL/CH OLESTEROL IN HDL [MASS RATIO] IN SERUM OR PLASMA 3.6 06/22 Specimen Type: SERUM No comment entered. Ordering Provider: MIGUELANGEL MAHONEY Report Released Date/Time: Jun 19, 2024 11:44 AM Reporting Lab: [facility]ITALRL TRN [facility]ITALUSEN[facility] [address] [facility] [address] Performing Lab: [facility] HOSPITALRUNITED STATES MARINE HOSPITALN [address] [address] [facility] LIPID PANEL FASTING CHOLESTERO L IN HDL [MASS/VOLU ME] IN SERUM OR PLASMA 60 mg/dL 40 - 60 06/22 Specimen Type: SERUM No comment entered. Ordering Provider: MIGUELANGEL MAHONEY Report Released Date/Time: Jun 19, 2024 11:44 AM Reporting Lab: [facility]OS[facility]ITALRL [facility]ERN [facility]USE[address] [address] Performing Lab: [facility]OS[facility]ITALRCRENSHAW COMMUNITY HOSPITALTRN [address] [address] [facility] BASIC METABOLI C PANEL (non-fas ting) UREA NITROGEN [MASS/VOLU ME] IN SERUM OR PLASMA 19 mg/dL 7 - 25 06/22 Specimen Type: SERUM No comment entered. Ordering Provider: MIGUELANGEL MAHONEY Report Released Date/Time: Jun 22, 2024 02:03 PM Reporting Lab: [facility]ITALRL TRN [facility] [address] Performing Lab: [facility]ITALRL TRN [facility]ITALUSE[address] [address] [facility] BASIC METABOLI C PANEL (non-fas ting) GLUCOSE [MASS/VOLU ME] IN SERUM OR PLASMA 109 mg/dL 65 - 100 06/22 H Specimen Type: SERUM No comment entered. Ordering Provider: MIGUELANGEL MAHONEY Report Released Date/Time: Jun 22, 2024 02:03 PM Reporting Lab: [place] [place] [facility] [address] [facility] [address] Performing Lab: [place] [facility] [place] [facility] [address] [facility] [address] [facility] [place] [facility] BASIC METABOLI C PANEL (non-fas ting) SODIUM [MOLES/VOL UME] IN SERUM OR PLASMA 139 mmol/L 135 - 145 06/22 Specimen Type: SERUM No comment entered. Ordering Provider: MIGUELANGEL MAHONEY Report Released Date/Time: Jun 22, 2024 02:03 PM Reporting Lab: [place] [facility] [place] [facility] [address] [facility] [address] Performing Lab: [place] [facility] [place] [facility] [address] [facility] [address] [facility]ITALRL W[facility]N [facility] [facility] BASIC METABOLI C PANEL (non-fas ting) POTASSIUM [MOLES/VOL UME] IN SERUM OR PLASMA 4.5 mmol/L 3.5 - 5.0 06/22 Specimen Type: SERUM No comment entered. Ordering Provider: MIGUELANGEL MAHONEY Report Released Date/Time: Jun 22, 2024 02:03 PM Reporting Lab: [place] [facility] [place] [facility] [address] [facility] [address] Performing Lab: [place] [place] [address] [address] [facility]ITALRL WSTRN [place] [facility] BASIC METABOLI C PANEL (non-fas ting) CHLORIDE [MOLES/VOL UME] IN SERUM OR PLASMA 104 mmol/L 100 - 110 06/22 Specimen Type: SERUM No comment entered. Ordering Provider: MIGUELANGEL MAHONEY Report Released Date/Time: Jun 22, 2024 02:03 PM Reporting Lab: [place] [facility] [place] [facility] [address] [facility] [address] Performing Lab: [place] [facility] [place] [address] [address] [place] [facility] [place] [facility] BASIC METABOLI C PANEL (non-fas ting) CARBON DIOXIDE, TOTAL [MOLES/VOL UME] IN SERUM OR PLASMA 24 meq/L 20 - 30 06/22 Specimen Type: SERUM No comment entered. Ordering Provider: MIGUELANGEL MAHONEY Report Released Date/Time: Jun 22, 2024 02:03 PM Reporting Lab: [facility] HOSPITALRCRENSHAW COMMUNITY HOSPITALTRN [facility] HOSPITALUSETS [address] [address] Performing Lab: [facility]OSPITALRCRENSHAW COMMUNITY HOSPITALTRN [facility]ITALUSE[address] [address] [facility] BASIC METABOLI C PANEL (non-fas ting) CREATININE [MASS/VOLU ME] IN SERUM OR PLASMA 0.89 mg/dL 0.50 - 1.40 06/22 Specimen Type: SERUM No comment entered. Ordering Provider: MIGUELANGEL MAHONEY Report Released Date/Time: Jun 22, 2024 02:03 PM Reporting Lab: [facility]ITALUSE[address] [address] Performing Lab: [facility]OSPITALRUNITED STATES MARINE HOSPITALN [facility]ITALUSE[address] [address] [facility]OSPITALUSE [facility] BASIC METABOLI C PANEL (non-fas ting) GLOMERULAR FILTRATION RATE/1.73 SQ M.PREDICTE D [VOLUME RATE/AREA] IN SERUM, PLASMA OR BLOOD BY CREATININE -BASED FORMULA (CKD-EPI 2020) 85 mL/min 60 06/22 Specimen Type: SERUM No comment entered. Ordering Provider: MIGUELANGEL MAHONEY Report Released Date/Time: Jun 22, 2024 02:03 PM Reporting Lab: [facility]OSPITALRCRENSHAW COMMUNITY HOSPITALTRN [facility]ITALUSE[address] [address] Performing Lab: [facility] HOSPITALRCRENSHAW COMMUNITY HOSPITALTRN [facility]ITALUSE[address] [address] [facility] CALCIUM CALCIUM [MASS/VOLU ME] IN SERUM OR PLASMA 9.6 mg/dL 8.5 - 10.2 06/22 Specimen Type: SERUM No comment entered. Ordering Provider: MIGUELANGEL MAHONEY Report Released Date/Time: Jun 22, 2024 08:24 AM Reporting Lab: [facility]OSPITALRCRENSHAW COMMUNITY HOSPITALTRN [facility]ITALUSE[address] [address] Performing Lab: [address] [address] [facility] COVID-19 MONITOR PANEL (AVST ) SARS-COV-2 (COVID-19) RNA [PRESENCE] IN RESPIRATOR [...] patient management decisions.C epheid FLUVID: HCPs: https://www .fda.gov/ut jojo/730872/ download. Patients: https://www .fda.gov/ut jojo/687723/ download Ordering Provider: MARITZA SHAH Report Released Date/Time: Jun 18, 2024 03:05 PM Reporting Lab: [address] [address] Performing Lab: [address] [address] [facility] PANEL (non-fas ting) UREA NITROGEN [MASS/VOLU ME] IN SERUM OR PLASMA 18 mg/dL 7 - 25 06/18 Specimen Type: SERUM No comment entered. Ordering Provider: MARITZA SHAH Report Released Date/Time: Jun 18, 2024 02:30 PM Reporting Lab: [address] [address] Performing Lab: [address] [address] [facility] PANEL (non-fas ting) GLUCOSE [MASS/VOLU ME] IN SERUM OR PLASMA 110 mg/dL 65 - 100 06/18 H Specimen Type: SERUM No comment entered. Ordering Provider: MARITZA SHAH Report Released Date/Time: Jun 18, 2024 02:30 PM Reporting Lab: [facility] [place] [facility] [address] [facility] [address] Performing Lab: [place] [facility] [address] [address] [place] [facility] [facility] BASIC METABOLI C PANEL (non-fas ting) SODIUM [MOLES/VOL UME] IN SERUM OR PLASMA 137 mmol/L 135 - 145 06/18 Specimen Type: SERUM No comment entered. Ordering Provider: MARITZA SHAH JO J Report Released Date/Time: Jun 18, 2024 02:30 PM Reporting Lab: [place] [facility] [facility] [address] [address] Performing Lab: [place] [facility] [facility] [address] [facility] [address] [facility] BASIC METABOLI C PANEL (non-fas ting) POTASSIUM [MOLES/VOL UME] IN SERUM OR PLASMA 3.9 mmol/L 3.5 - 5.0 06/18 Specimen Type: SERUM No comment entered. Ordering Provider: MARITZA SHAH JO J Report Released Date/Time: Jun 18, 2024 02:30 PM Reporting Lab: [place] [facility] [facility] [address] [facility] [address] Performing Lab: [place] [facility] [facility] [address] [facility] [address] [place] [facility] [place] [facility] BASIC METABOLI C PANEL (non-fas ting) CHLORIDE [MOLES/VOL UME] IN SERUM OR PLASMA 103 mmol/L 100 - 110 06/18 Specimen Type: SERUM No comment entered. Ordering Provider: MARITZA SHAH JO J Report Released Date/Time: Jun 18, 2024 02:30 PM Reporting Lab: [place] [facility] [place] [facility] [address] [facility] [address] Performing Lab: [place] [facility] [facility] [address] [facility] [address] [place] [facility] BASIC METABOLI C PANEL (non-fas ting) CARBON DIOXIDE, TOTAL [MOLES/VOL UME] IN SERUM OR PLASMA 29 meq/L 20 - 30 06/18 Specimen Type: SERUM No comment entered. Ordering Provider: MARITZA SHAH Report Released Date/Time: Jun 18, 2024 02:30 PM Reporting Lab: [facility] [address] [address] Performing Lab: [facility]ITALRUN[facility]N [address] [address] [facility] BASIC METABOLI C PANEL (non-fas ting) CREATININE [MASS/VOLU ME] IN SERUM OR PLASMA 0.84 mg/dL 0.50 - 1.40 06/18 Specimen Type: SERUM No comment entered. Ordering Provider: MARITZA SHAH Report Released Date/Time: Jun 18, 2024 02:30 PM Reporting Lab: [address] [address] Performing Lab: [address] [address] [facility] BASIC METABOLI C PANEL (non-fas ting) GLOMERULAR FILTRATION RATE/1.73 SQ M.PREDICTE D [VOLUME RATE/AREA] IN SERUM, PLASMA OR BLOOD BY CREATININE -BASED FORMULA (CKD-EPI 2020) >90mL/mi n 60 06/18 Specimen Type: SERUM No comment entered. Ordering Provider: MARITZA SHAH Report Released Date/Time: Jun 18, 2024 02:30 PM Reporting Lab: [facility]ITALRUN[facility]ITALN [address] [address] Performing Lab: [address] [address] [facility] ETHANOL ETHANOL [MASS/VOLU ME] IN SERUM OR PLASMA <10mg/dL 06/18 Specimen Type: PLASMA No comment entered. Ordering Provider: MARITZA SHAH Report Released Date/Time: Jun 18, 2024 02:30 PM Reporting Lab: [facility] [place] [address] Performing Lab: [place] [facility] [facility] [address] [facility] [address] [place] [facility] [place] [facility] LIVER FUNCTION PROTEIN [MASS/VOLU ME] IN SERUM OR PLASMA 7.1 g/dL 6.0 - 8.3 06/18 Specimen Type: SERUM No comment entered. Ordering Provider: MARITZA SHAH JO J Report Released Date/Time: Jun 18, 2024 02:30 PM Reporting Lab: [facility] [place] [facility] [address] [facility] [address] Performing Lab: [place] [facility] [address] [facility] [address] [facility] LIVER FUNCTION ALBUMIN [MASS/VOLU ME] IN SERUM OR PLASMA 4.2 g/dL 3.5 - 5.0 06/18 Specimen Type: SERUM No comment entered. Ordering Provider: MARITZA SHAH JO J Report Released Date/Time: Jun 18, 2024 02:30 PM Reporting Lab: [place] [facility] [place] [facility] [address] [facility] [address] Performing Lab: [place] [facility] [facility] [address] [facility] [address] [facility]RL [facility]USE [facility] LIVER FUNCTION ALKALINE PHOSPHATAS E [ENZYMATIC ACTIVITY/V OLUME] IN SERUM OR PLASMA 46 U/L 40 - 150 06/18 Specimen Type: SERUM No comment entered. Ordering Provider: MARITZA SHAH JO J Report Released Date/Time: Jun 18, 2024 02:30 PM Reporting Lab: [place] [facility] [place] [facility] [address] [facility] [address] Performing Lab: [place] [facility] [address] [facility] [address] [facility] [place] [facility] ASPARTATE AMINOTRANS FERASE [ENZYMATIC ACTIVITY/V OLUME] IN SERUM OR PLASMA 10 U/L 5 - 34 06/18 Specimen Type: SERUM No comment entered. Ordering Provider: MARITZA SHAH JO J Report Released Date/Time: Jun 18, 2024 02:30 PM Reporting Lab: [facility] HOSPITALRCRENSHAW COMMUNITY HOSPITALTRN G[facility] HOSPITALUSETS [facility] [address] [facility] [address] Performing Lab: [facility] HOSPITALRCRENSHAW COMMUNITY HOSPITALTRN [facility]PITALUSEN[facility] [address] [address] [facility]ITALRUNITED STATES MARINE HOSPITALN [facility]ITALUSE [facility] LIVER FUNCTION ALANINE AMINOTRANS FERASE [ENZYMATIC ACTIVITY/V OLUME] IN SERUM OR PLASMA 11 U/L 06/18 Specimen Type: SERUM No comment entered. Ordering Provider: MARITZA SHAH Report Released Date/Time: Jun 18, 2024 02:30 PM Reporting Lab: [facility]OSPITALRCRENSHAW COMMUNITY HOSPITALTRN [facility]PITALUSEN[facility] [address] [facility] [address] Performing Lab: [facility] HOSPITALRCRENSHAW COMMUNITY HOSPITALTRN [facility]OSPITALUSEN[facility] [address] [facility] [address] [facility]ITALUSE [facility] LIVER FUNCTION BILIRUBIN. TOTAL [MASS/VOLU ME] IN SERUM OR PLASMA 0.3 mg/dL 0.2 - 1.2 06/18 Specimen Type: SERUM No comment entered. Ordering Provider: MARITZA SHAH Report Released Date/Time: Jun 18, 2024 02:30 PM Reporting Lab: [facility]OSPITALRCRENSHAW COMMUNITY HOSPITALTRN [facility]OSPITALUSEN[facility] [address] [facility] [address] Performing Lab: [facility]OS[facility]ITALRCRENSHAW COMMUNITY HOSPITALTRN [facility] HOSPITALUSE[address] [address] [facility] Vital Signs Combined list of inpatient and outpatient Vital Signs from Department of Defense and Veterans Affairs, ranging from 12 months to all on record, depending upon the facility. Vital Sign Value Date Comments Source SYSTOLIC BLOOD PRESSURE 97 07/08/20 10:50:08 [place] DIASTOLIC BLOOD PRESSURE 63 024 10:50:08 [place] PULSE OXIMETRY 99 07/08/2024 10:50:08 [place] WEIGHT 104.2 07/08/2024 10:50:08 [place] BMI 18 kg/m2 07/08/2024 10:50:08 [place] TEMPERATURE 98.8 07/08/2024 10:50:08 [place] PULSE 63 07/08/2024 10:50:08 [place] TEMPERATURE 97.6 07/03/2024 06:12:05 [facility] [...] ADM Date DC Date Status Disposition [place] [address](ZZN utritiona l Med LAFB, 37) OUTPATIENT [id number] low bmi DONNELL SPEARS 02/03 Released w/o Limitations [facility] [place] [address](Z ZNutrit ional Med LAFB, 37th) [employer]) OUTPATIENT [id number] bc pills EVITA VIDES 04/15 Released w/o Limitations [employer] [employer](ZZ Myla Back) OUTPATIENT [id number] HUMBERTO MARK 11/23 Released w/o Limitations [employer](Z Z Myla Back) [employer]([facility]) OUTPATIENT [id number] irregul ar FRANKY CrossAlan Mcfarland 11/23 Released w/o Limitations [facility] [address] [place] [address]([facility]) OUTPATIENT [id number] PETER Rodríguez 12/13 Released w/o Limitations [address] [place] [address]([facility]([place]) OUTPATIENT [id number] poss fungus on back ANDREE MASTERSON E 05/31 Released w/o Limitations [address] [place] [address](B ighorn) [facility] matology [facility]) OUTPATIENT [id number] rash located on upper back DEBORAH ANGEL E 07/12 Released w/o Limitations [address] [place] [address](D ermatol ogy [facility]) [address] [place] [address]([facility]) TELE CONSULT [id number] dermato logy follow- up STEPH ALBERT 08/03 [facility](D ermatol ogy [facility]) [facility]) TELE CONSULT [id number] labwork EVITA Dunbar 09/19 [facility](Z Z Myla Back) [facility]) TELE CONSULT [id number] GI discomf ort, crampin g, gas, HELEN Evans 10/20 [facility](Z Z Myla Back) [facility]( Myla Back) OUTPATIENT [id number] abdomin al discomf ort x 1 month PRATIBHA POLLARD 10/20 Released w/o Limitations [facility](Z Z Myla Back) [facility]) TELE CONSULT [id number] rx refill MARIO ALBERTO BROWN 10/20 [facility]) OUTPATIENT [id number] bc refill for PETER ALBARADO 10/27 Released w/o Limitations [address] [place] [address]([facility]) [facility](ZZ Myla Back) TELE CONSULT [id number] xray and lab results - PRATIBHA Poe E 10/27 [facility]( Z Myla Back) [facility]) TELE CONSULT [id number] Triage limb pain - EVITA Dunbar 11/13 [facility](Z Z Myla Back) [facility]) OUTPATIENT [id number] leg pain/ frequen t urinati on AKANKSHA OCAMPO E 11/13 Released w/o Limitations [facility](E agle) [facility]( [facility]) TELE CONSULT [id number] labs EVITA DELONG 11/16 [facility](Rust [facility]) [facility]) OUTPATIENT [id number] freq urinati on/no pain VINAY FARLEY 11/21 Released w/o Limitations [facility]( Z Myla Back) [facility]) TELE CONSULT [id number] Medicat ion refill - EVITA Dunbar 12/18 [facility]ust [facility]) [facility]) TELE CONSULT [id number] Request ed dates of HAMILTON Sanchez 01/03 [facility](Z Z Myla Back) [facility]) OUTPATIENT [id number] ongoing issues with constip ation VINAY FARLEY 01/04 Released w/o Limitations [facility](Z Z Myla Back) [facility]) OUTPATIENT [id number] cold-li ke sx VINAY FARLEY 01/10 Sick at Home/Quarter s [facility](Z Z Myla Back) [facility]) TELE CONSULT [id number] Quarter extensi on per PCM/ EVITA Dunbar 01/11 [facility]( Z Myla Back) [facility](Dimas is [facility]agemen t) TELE CONSULT [id number] Inpatie nt Admissi on NATALI BEE Cinda 02/14 [employer](Sandra Scott [facility] ent) [employer]([place]) OUTPATIENT [id number] F/U [facility], [id number] , Eating disorde r CATHY AURORA D 05/01 Released w/o Limitations [employer](B ighorn) [employer](Eag le) OUTPATIENT [id number] PHA-OVE R TIERRA TORRES 05/09 Released w/o Limitations [employer](E agle) [facility]) OUTPATIENT [id number] annual for STACIE ORTIZ 05/22 Released w/o Limitations [facility](O ptometr y Clinic) [facility]( [facility]) OUTPATIENT [id number] breast exam - booked by last 2 of ssn GABI WARREN 05/28 Released w/o Limitations [facility]) [facility]( [facility]) OUTPATIENT [id number] bleedin g and itching in anal area YURY QUIÑONES 08/15 Released w/o Limitations [facility]) [facility]) TELE CONSULT [id number] med renewal URVASHI Zafar 09/04 [employer](Z Z Myla Back) [facility] ) OUTPATIENT [id number] Hemorro ids discomf ort JEANNETTE TOBIN 11/09 Released w/o Limitations [facility]( ZRoad nner) [facility] OUTPATIENT [id number] follow up on GI issues JEANNETTE TOBIN 12/11 Released w/o Limitations [facility](Z ZRoadru nner) [facility] ) TELE CONSULT [id number] HRT Questio n/ JEANNETTE Bone 12/21 [employer]( ZRoadru nner) [facility] ) OUTPATIENT [id number] annual naheed TOBIN, JEANNETTE Anaya 01/01 Released w/o Limitations [facility](Z ZRoadru nner) [facility] En[facility] [id number] 08/12 [facility] [place] [facility] Outpatient Encounter [id number] 10/24 [place] [place] [facility] [place] OFF/OP CONSLTJ NEW/EST HI 55 [id number] Diagnos is: ICD-10- CM F33.40 Major depress medhat disorde r, recurre nt, in remissi on, unsp CHEUNG,ST EVEN G 10/25 [facility] [place] [facility] Outpatient Encounter [id number] 12/31 [place] [facility]/P EST LOW 20 MIN [id number] Diagnos is: ICD-10- CM F33.40 Major depress medhat disorde r, recurre nt, in remissi on, unsp CHEUNG,ST EVEN G 01/07 [facility] Outpatient Encounter [id number] 01/20 [facility] Outpatient Encounter [id number] 01/21 [facility] [place] [facility] Outpatient Encounter [id number] 01/29 [place] [facility] Outpatient Encounter [id number] 02/06 [facility] LD OFFICE O/P EST LOW 20 MIN [id number] Diagnos is: ICD-10- CM F33.40 Major depress medhat disorde r, recurre nt, in remissi on, unsp CHEUNG,ST EVEN G 02/06 [place] [facility] Outpatient Encounter [id number] 02/16 [facility] [place] [facility] En[facility] [id number] 02/26 [facility] [place] [facility] [place] [facility] En[facility] [id number] 04/02 [facility] [place] [facility] OFFICE O/P EST LOW 20 MIN [id number] Diagnos is: ICD-10- CM F33.40 Major depress medhat disorde r, recurre nt, in remissi on, unsp SKYE,ST EVEN G 04/03 [place] [facility] En[facility] [id number] 04/07 [facility] [place] [facility] [facility] [place] [facility] En[facility] [id number] 04/20 [facility] [place] [place] [facility] Outpatient Encounter [id number] 05/07 [facility] [place] [facility] Out[facility] Encounter [id number] 05/07 [facility] [place] [place] [facility] Outpatient Encounter [id number] 05/07 [facility] Encounter [id number] 05/08 [facility] Outpatient Encounter [id number] 05/11 [facility] Outpatient Encounter [id number] 05/12 [facility] ASSMT/REAS SESSMENT [id number] Diagnos is: ICD-10- CM 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 [place] [facility] Outpatient Encounter [id number] 05/15 [facility] [place] [facility] OFFICE O/P EST LOW 20 MIN [id number] Diagnos is: ICD-10- CM F33.40 Major depress medhat disorde r, recurre nt, in remissi on, unsp [facility] CHEUNG G 05/22 [facility] [place] [facility] Outpatient Encounter [id number]/22 [facility] [place] [facility] [place] [facility] Outpatient Encounter [id number] 06/02 [facility] [place] [facility] [place] [facility] OFF/OP EST MARCH X REQ PHY/QHP [id number] 1. Diagnos is: ICD-10- CM F41.1 General ized anxiety disorde r Alyssa CARTER ATRICIAnaya Julien 06/15 [place] [facility] FEE [id number] 1BY. 50 Diagnos is: ICD-10- CM F33.40 Major depress medhat disorde r, recurre nt, in remissi on, unsp AMY CHAN 06/17 [facility]P EST HI 40 MIN [id number] Diagnos is: ICD-10- CM F33.40 Major depress medhat disorde r, recurre nt, in remissi on, unsp SKEY,ST EVEN G 06/17 [place] [facility] En[facility] [id number] 06/17 [facility] [place] En[facility] [id number] 06/18 [facility] [place] HC PRO PHONE CALL 11-20 MIN [id number] Diagnos is: ICD-10- CM F41.1 General ized anxiety disorde r Alyssa AMAYA 06/18 [facility] [place] En[facility] [id number] 06/18 [facility] [place] OFF/OP EST MAY X REQ PHY/QHP [id number] Diagnos is: ICD-10- CM R45.851 Suicida l ideatio RAMON Lr 06/18 [facility] [place] En[facility] [id number] Alyssa AMAYA 06/18 [facility] Encounter [id number] 06/18 [facility] [place] OFF[place] HI 40 MIN [id number] Diagnos is: ICD-10- CM F41.1 General ized anxiety disorde r IRWIN OROZCO 06/18 [facility] Encounter [id number] Admit Reason: ANXIETY AND DEPRESS ION MIGUELANGEL MAHONEY 06/18 Regular discharge from inpatient treatment. [facility] En[facility] [id number] 06/18 [facility] [place] Encounter [id number] 06/18 [facility] [place] En[facility] [id number] 06/18 [facility] [place] 1[facility] H[facility] IP/OBS HIGH 75 [id number] Diagnos is: ICD-10- CM F33.40 Major depress medhat disorde r, recurre nt, in remissi on, unsp MIGUELANGEL MAHONEY 06/19 [facility] [place] [facility] RN GYN NAVAL SURFACE FIRE SUPPORT PLANNER INDIVIDU [id number] Diagnos is: ICD-10- CM 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 [employer] JOSH Larsen 06/19 [facility] [place] [facility] GROUP PSYCHOTHER APY [id number] Diagnos is: ICD-10- CM F33.40 Major depress medhat disorde r, recurre nt, in remissi on, unsp TA ESPINOZA SIMONA 06/19 [facility] [place] [facility] CASE MANAGEMENT [id number] Diagnos is: ICD-10- CM F33.40 Major depress medhat disorde r, recurre nt, in remissi on, unsp JAMAAL GRIMES N N 06/19 [facility] [place] [facility] GROUP PSYCHOTHER APY [id number] Diagnos is: ICD-10- CM F33.40 Major depress medhat disorde r, recurre nt, in remissi on, unsp ESPINOZA,TA SIMONA 06/19 [facility] [place] [facility] Inpatient Encounter [id number] 06/19 [facility] [place] [facility] ELECTROCAR DIOGRAM REPORT [id number] Diagnos is: ICD-10- CM Z13.6 Encount er for screeni ng for cardiov ascular disorde rs Bartolo TOSCANO 06/20 [place] [facility] [place] [facility] RN GYN NAVAL SURFACE FIRE SUPPORT PLANNER INDIVIDU 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 [employer] JOSH Larsen 06/20 [facility] [place] [facility] [place] [facility] ELECTROCAR DIOGRAM TRACING [id number] MEAGAN SLADE 06/20 [facility] [place] [facility] [facility] [place] GROUP THERAPEUTI C PROCEDURES [id number] Diagnos is: ICD-10- CM F33.40 Major depress medhat disorde r, recurre nt, in remissi on, unsp ZIEGLER,MEL A 06/21 [facility] [place] [facility] [place] [facility] GROUP THERAPEUTI C PROCEDURES [id number] [id number] Diagnos is: ICD-10- CM F33.40 Major depress medhat disorde r, recurre nt, in remissi on, unsp ZIEGLER,MEL A 06/21 [facility] [place] [facility] [place] [facility] SBSQ HOSP IP/OBS MODERATE 35 [id number] Diagnos is: ICD-10- CM F33.40 Major depress medhat disorde r, recurre nt, in remissi on, unsp MIGUELANGEL MAHONEY M 06/22 [facility] [place] [facility] [place] [facility] CASE MANAGEMENT [id number] Diagnos is: ICD-10- CM F33.40 Major depress medhat disorde r, recurre nt, in remissi on, unsp JAMAAL GRIMES N 06/22 [facility] GROUP PSYCHOTHER APY [id number] Diagnos is: ICD-10- CM F33.40 Major depress medhat disorde r, recurre nt, in remissi on, unsp ESPINOZA,EM SIMONA 06/22 [facility] RN GYN [employer] [id number] Diagnos is: ICD-10- CM 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 [employer] [place] Bueno 06/22 [facility] Inpatient Encounter [id number] 06/22 [facility]OS[facility] IP/OBS MODERATE 35 [id number] [id number] Diagnos is: ICD-10- CM F33.40 Major depress medhat disorde r, recurre nt, in remissi on, unsp MIGUELANGEL MAHONEY M 06/23 [facility] Inpatient Encounter [id number] Diagnos is: ICD-10- CM F33.40 Major depress medhat disorde r, recurre nt, in remissi on, unsp OLGA,EM SIMONA 06/23 [facility] CASE MANAGEMENT [id number] Diagnos is: ICD-10- CM F33.40 Major depress medhat disorde r, recurre nt, in remissi on, unsp JAMAAL GRIMES N N 06/23 [facility] GROUP PSYCHOTHER APY [id number] Diagnos is: ICD-10- CM F41.9 Anxiety disorde r, unspeci fied ESPINOZA,EM SIMONA 06/23 [facility] S[facility]OSP IP/OBS MODERATE 35 [id number] [id number] Diagnos is: ICD-10- CM F33.40 Major depress medhat disorde r, recurre nt, in remissi on, unsp MIGUELANGEL MAHONEY M 06/24 [facility] GROUP THERAPEUTI C PROCEDURES [id number] Diagnos is: ICD-10- CM F33.40 Major depress medhat disorde r, recurre nt, in remissi on, unsp MEL ZIEGLER A 06/24 [facility] CASE MANAGEMENT [id number] Diagnos is: ICD-10- CM F33.40 Major depress medhat disorde r, recurre nt, in remissi on, unsp JAMAAL GRIMES N N 06/24 [facility] GROUP PSYCHOTHER APY [id number] Diagnos is: ICD-10- CM F33.40 Major depress medhat disorde r, recurre nt, in remissi on, unsp ESPINOZA,TA SIMONA 06/24 [facility] GROUP PSYCHOTHER APY [id number] [id number] Diagnos is: ICD-10- CM F41.1 General ized anxiety disorde r ESPINOZA,TA SIMONA 06/24 [facility] FAMILY PSYTX W/PT 50 MIN [id number] [id number] Diagnos is: ICD-10- CM F41.1 General ized anxiety disorde r Alyssa AMAYA 06/24 [facility] RN GYN [employer]NER INDIVIDU [id number] [id number] Diagnos is: ICD-10- CM 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 [employer] [place] Bueno 06/24 [facility] Inpatient Encounter [id number] Diagnos is: ICD-10- CM F33.40 Major depress medhat disorde r, recurre nt, in remissi on, unsp ESPINOZA,EM SIMONA 06/24 [facility] SBSQ HOSP IP/OBS MODERATE 35 [id number] [id number] Diagnos is: ICD-10- CM F33.40 Major depress medhat disorde r, recurre nt, in remissi on, unsp MIGUELANGEL MAHONEY M 06/25 [facility] CASE MANAGEMENT [id number] Diagnos is: ICD-10- CM F33.40 Major depress medhat disorde r, recurre nt, in remissi on, unsp JAMAAL GRIMES N N 06/25 [facility] Inpatient Encounter [id number] 06/25 [facility] [place] GROUP PSYCHOTHER APY [id number] Diagnos is: ICD-10- CM F42.9 Obsessi ve-comp ulsive disorde r, unspeci fied ESPINOZA,EM SIMONA 06/25 [facility] Inpatient Encounter [id number] Diagnos is: ICD-10- CM F33.40 Major depress medhat disorde r, recurre nt, in remissi on, unsp ESPINOZA,EM SIMONA 06/25 [facility] En[facility] [id number] 06/25 [facility] GROUP THERAPEUTI C PROCEDURES [id number] [id number] Diagnos is: ICD-10- CM F33.40 Major depress medhat disorde r, recurre nt, in remissi on, unsp MEL ZIEGLER A 06/26 [facility] CASE MANAGEMENT [id number] [id number] Diagnos is: ICD-10- CM F33.40 Major depress medhat disorde r, recurre nt, in remissi on, unsp JAMAAL GRIMES N 06/26 [facility] GROUP PSYCHOTHER APY [id number] Diagnos is: ICD-10- CM F42.9 Obsessi ve-comp ulsive disorde r, unspeci fied OLGA,EM SIMONA 06/26 [facility] GROUP PSYCHOTHER APY [id number] [id number] Diagnos is: ICD-10- CM F42.9 Obsessi ve-comp ulsive disorde r, unspeci fied OGLA,EM SIMONA 06/26 [facility] SBSQ HOSP IP/OBS HIGH 50 [id number] [id number] MARICRUZ ARIAS 06/26 [facility] S[facility] IP/OBS SF/LOW 25 [id number] [id number] Diagnos is: ICD-10- CM F33.40 Major depress medhat disorde r, recurre nt, in remissi on, unsp ST RENATA FIGUEROA G 06/27 [facility] RN GYN [employer] [id number] [id number] Diagnos is: ICD-10- CM 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 JOSH RICEBartolo M 06/27 [facility] GROUP PSYCHOTHER APY [id number] Diagnos is: ICD-10- CM F33.40 Major depress medhat disorde r, recurre nt, in remissi on, unsp REGGIE ARANGO SEA 06/28 [facility] SBSQ HOSP IP/OBS SF/LOW 25 [id number] [id number] Diagnos is: ICD-10- CM F33.40 Major depress medhat disorde r, recurre nt, in remissi on, unsp ST RENATA FIGUEROA G 06/28 [facility] CASE MANAGEMENT [id number] Diagnos is: ICD-10- CM F33.40 Major depress medhat disorde r, recurre nt, in remissi on, unsp CORNELIOJAMAAL Phillips N 06/29 [facility] GROUP PSYCHOTHER APY [id number] Diagnos is: ICD-10- CM F42.9 Obsessi ve-comp ulsive disorde r, unspeci fied OLGAEM SIMONA 06/29 [facility] SBSQ HOSP IP/OBS HIGH 50 [id number] [id number] Diagnos is: ICD-10- CM F42.9 Obsessi ve-comp ulsive disorde r, unspeci fied MARICRUZ ARIAS 06/29 [facility] CASE MANAGEMENT [id number] 1. Diagnos is: ICD-10- CM F33.40 Major depress medhat disorde r, recurre nt, in remissi on, unsp JAMAAL GRIMES N 06/30 [facility] GROUP PSYCHOTHER APY [id number] 1. Diagnos is: ICD-10- CM F42.9 Obsessi ve-comp ulsive disorde r, unspeci fied ELLY HORN 06/30 [facility] SBSQ HOSP IP/OBS HIGH 50 [id number] [id number] Diagnos is: ICD-10- CM F42.9 Obsessi ve-comp ulsive disorde r, unspeci fied MARICRUZ ARIAS 06/30 [facility] SBSQ HOSP IP/OBS MODERATE 35 [id number] [id number] Diagnos is: ICD-10- CM F42.9 Obsessi ve-comp ulsive disorde r, unspeci fied MIGUELANGEL MAHONEY 07/01 [facility] GROUP THERAPEUTI C PROCEDURES [id number] [id number] Diagnos is: ICD-10- CM F33.40 Major depress medhat disorde r, recurre nt, in remissi on, unsp ZIEGLER,MEL A 07/01 [facility] [place] [place] CASE MANAGEMENT [id number] Diagnos is: ICD-10- CM F33.40 Major depress medhat disorde r, recurre nt, in remissi on, unsp JAMAAL GRIMES N N 07/01 [facility] [place] [place] GROUP PSYCHOTHER APY [id number] Diagnos is: ICD-10- CM F42.9 Obsessi ve-comp ulsive disorde r, unspeci fied ESPINOZATA SIMONA 07/01 [facility] [place] [place] QNHP OL DIG ASSMT&MGMT 11- 72796-6.63 [id number] Diagnos is: ICD-10- CM F33.40 Major depress medhat disorde r, recurre nt, in remissi on, unsp LUCINDA COOPER 07/01 [facility] [place] SBSQ HOSP IP/OBS HIGH 50 [id number] [id number] Diagnos is: ICD-10- CM F42.9 Obsessi ve-comp ulsive disorde r, unspeci fied MIGUELANGEL MAHONEY M 07/02 [facility] [place] [place] GROUP THERAPEUTI C PROCEDURES [id number] [id number] Diagnos is: ICD-10- CM F33.40 Major depress medhat disorde r, recurre nt, in remissi on, unsp ZIEGLER,MEL A 07/02 [facility] RN GYN [employer] SU[employer] PLANNER INDIVIDU [id number] [id number] Diagnos is: ICD-10- CM 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 [employer] [place] Bueno 07/02 [facility] CASE MANAGEMENT [id number] [id number] Diagnos is: ICD-10- CM F33.40 Major depress medhat disorde r, recurre nt, in remissi on, unsp JAMAAL GRIMES N 07/02 [facility] SELF-HELP/ PEER SVC PER 15MIN [id number] [id number] Diagnos is: ICD-10- CM F41.9 Anxiety disorde r, unspeci fied JOSEMANUEL YEN R 07/02 [facility] H[facility] IP/OBS DSCHRG MGMT >30 13960-8.63 [id number] Diagnos is: ICD-10- CM F42.9 Obsessi ve-comp ulsive disorde r, unspeci fied MIGUELANGEL MAHONEY 07/03 [facility] RN GYN [employer] SU[employer] PLANNER INDIVIDU [id number] [id number] Diagnos is: ICD-10- CM 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 Diagnos is: ICD-10- CM F33.40 Major depress medhat disorde r, recurre nt, in remissi on, unsp CORNELIO,JAMAAL N N 07/03 [facility] Inpatient Encounter [id number] 1.07/03 [facility] OFFICE O/P EST MOD 30 MIN 50893-7.63 1BY. 83 Diagnos is: ICD-10- CM F33.40 Major depress medhat disorde r, recurre nt, in remissi on, unsp CHEUNG,ST EVEN G 07/06 [facility] PRO PHONE CALL 5-10 MIN 88965-7.63 [id number] Diagnos is: ICD-10- CM Z71.9 County Adviser ing, unspeci JOSE ALEJANDRO Thornton 07/07 [facility] GROUP PSYCHOTHER APY [id number] [id number] Diagnos is: ICD-10- CM F43.12 Post-tr aumatic stress disorde r, chronic MARICRUZ MURRAY E 07/08 [facility] OFFICE O/P EST MOD 30 MIN 16337-6.63 1BY. 37 Diagnos is: ICD-10- CM R73.9 Hypergl ycemia, unspeci fied TYSHAWNLEA,CAR MEN F 07/08 [facility] Outpatient Encounter [id number] 1.07/08 [facility] [place] Outpatient Encounter [id number] 1. 07/08 [facility] COMMUNITY/ WORK REINTEGRAT ION [id number] [id number] Diagnos is: ICD-10- CM Z56.0 Unemplo yment, unspeci fied [facility]09 [facility] PSYTX W PT 60 MINUTES [id number] [id number] Diagnos is: ICD-10- CM F33.40 Major depress medhat disorde r, recurre nt, in remissi on, [facility], 07/09 [facility] GROUP PSYCHOTHER APY [id number] Diagnos is: ICD-10- CM F33.40 Major depress medhat disorde r, recurre nt, in remissi on, [facility], ANAHI 07/10 [facility] [place] [place] SELF-HELP/ PEER SVC PER 15MIN 80099-6.63 [id number] Diagnos is: ICD-10- CM F41.9 Anxiety disorde r, unspeci fied OESTREICHELSY ARMIJO 07/14 [place] [facility] COMMUNITY/ WORK REINTEGRAT ION [id number] [id number] Diagnos is: ICD-10- CM Z56.0 Unemplo yment, unspeci fied SUSANNE LAZAROMINNIE [facility] 07/15 [facility] [place] [place] PSYTX W PT 45 MINUTES 61912-9.63 [id number] Diagnos is: ICD-10- CM F33.40 Major depress medhat disorde r, recurre nt, in remissi on, unsp PAYTON GEORGE 07/17 [place] [facility] GROUP PSYCHOTHER APY [id number] Diagnos is: ICD-10- CM F41.9 Anxiety disorde r, unspeci fied MADHAVI, 07/17 [facility] [place] [place] Outpatient Encounter [id number] 07/17 [facility] [place] [place] OFFICE O/P EST LOW 20 MIN 05326-8.63 [id number] Diagnos is: ICD-10- CM F33.40 Major depress medhat disorde r, recurre nt, in remissi on, unsp [facility] CHEUNG G 07/23 [facility] [place] [facility] GROUP PSYCHOTHER APY [id number] 1. Diagnos is: ICD-10- CM F33.40 Major depress medhat disorde r, recurre nt, in remissi on, unsp [facility] [place] [place] GREENEL D ([facility]) [place] [id number] Diagnos is: ICD-10- CM R63.6 Underwe ight ADELINE BERG A 07/24 [facility] FAMILY PSYTX W/PT 50 MIN 34626-0.63 [id number] Diagnos is: ICD-10- CM F33.40 Major depress medhat disorde r, recurre nt, in remissi on, unsp PAYTON GEORGE G 07/27 [facility] Out[facility] Encounter [id number] 07/28 [facility] [place] [place] COMMUNITY/ WORK REINTEGRAT ION [id number] Diagnos is: ICD-10- CM Z56.0 Unemplo yment, unspeci fied [facility] ROXY SAM 07/29 [facility] Out[facility] Encounter [id number] [id number] 08/03 [facility] [place] [place] PSYTX W PT 45 MINUTES 31849-3.63 1BY.[id number] 91 Diagnos is: ICD-10- CM F41.1 General ized anxiety disorde r LIBRADOSHAHRAM PAYTON Ramesh 08/05 [place] [facility] GROUP PSYCHOTHER APY [id number] [id number] Diagnos is: ICD-10- CM F33.40 Major depress medhat disorde r, recurre nt, in remissi on, unsp [facility] 08[facility]07 [facility] [place] [place] [place] OFFICE O/P EST HI 40 MIN 04946-8.63 [id number].[id number] Diagnos is: ICD-10- CM F33.40 Major depress medhat disorde r, recurre nt, in remissi on, unsp [facility] CHEUNG 08/11 [place] PSYTX W PT 45 MINUTES 34424-1.63 [id number] Diagnos is: ICD-10- CM F41.1 General ized anxiety disorde r PAYTON GEORGE 08/12 [place] [facility] GROUP PSYCHOTHER APY [id number] [id number] Diagnos is: ICD-10- CM F41.9 Anxiety disorde r, unspeci fied [facility], ANAHI 08/14 [facility] [place] PSYTX W PT 45 MINUTES 05913-1.63 [id number] Diagnos is: ICD-10- CM F33.2 Major depress v disorde r, recurre nt severe w/o psych feature s PAYTON GEORGE 08/19 [place] [facility] MED NUTRITION INDIV SUBSEQ [id number] [id number] Diagnos is: ICD-10- CM R63.6 Underwe ight ADELINE BERG 08/20 [facility] Outpatient Encounter [id number] 08/21 [facility] Outpatient Encounter [id number] [id number] 08/21 [facility] Outpatient Encounter [id number] 08/24 [facility] [place] [place] [place] OFFICE O/P EST MOD 30 MIN 03779-7.63 [id number] Diagnos is: ICD-10- CM F33.40 Major depress medhat disorde r, recurre nt, in remissi on, unsp CHEUNG,ST EVEN G 08/25 [facility] IE [place] PSYTX W PT 45 MINUTES 67929-4.63 [id number] Diagnos is: ICD-10- CM F41.1 General ized anxiety disorde r PAYTON GEORGE 08/25 [place] [facility] Outpatient Encounter [id number] [facility] [place] [place] OFFICE O/P EST MOD 30 MIN 56268-4.63 [id number] Diagnos is: ICD-10- CM F33.40 Major depress medhat disorde r, recurre nt, in remissi on, unsp CHEUNG,ST EVEN G 08/31 [place] [facility] Outpatient Encounter [id number] 09/02 [facility] [place] [place] PSYTX W PT 45 MINUTES [id number] [id number] Diagnos is: ICD-10- CM F33.2 Major depress v disorde r, recurre nt severe w/o psych feature s PAYTON GEORGE G 09/03 [place] [facility] Outpatient Encounter [id number] 1.09/07 [facility] [place] [place] Outpatient Encounter [id number] 1.09/14 [facility] [place] [place] [facility] [place] OFFICE O/P EST LOW 20 MIN 38929-5.63 [id number].[id number] Diagnos is: ICD-10- CM F33.40 Major depress medhat disorde r, recurre nt, in remissi on, unsp CHEUNG,ST EVEN G 09/15 [place] [facility] Outpatient Encounter [id number] 09/15 [facility] [facility] MED NUTRITION INDIV SUBSEQ [id number] Diagnos is: ICD-10- CM R63.6 Underwe ight MARCOS BERGIA A 09/17 [facility] Outpatient Encounter [id number] 09/22 [facility] Outpatient Encounter [id number] 10/01 [facility] [facility] [place] OFF[facility] O/P EST LOW 20 MIN [id number] Diagnos is: ICD-10- CM F33.40 Major depress medhat disorde r, recurre nt, in remissi on, unsp CHEUNG, EVEN G 10/06 [place] [facility] Outpatient Encounter [id number] 10/09 [facility] Outpatient Encounter [id number] 10/21 [facility] [place] OFF[facility] O/P EST MOD 30 MIN [id number] Diagnos is: ICD-10- CM F33.40 Major depress medhat disorde r, recurre nt, in remissi on, unsp CHEUNG, EVEN G 10/27 [place] O/P EST LOW 20 MIN [id number] Diagnos is: ICD-10- CM F33.40 Major depress medhat disorde r, recurre nt, in remissi on, unsp CHEUNG, EVEN G 11/10 [place] [facility] Outpatient Encounter [id number] 11/18 [facility] Encounter [id number] 11/25 [facility] [place] [facility] PSYTX W PT 45 MINUTES [id number] Diagnos is: ICD-10- CM F41.1 General ized anxiety disorde r PAYTON GEORGE 11/26 [place] [facility] En[facility] [id number] 11/27 [facility] [place] [facility] W PT 45 MINUTES [id number] Diagnos is: ICD-10- CM F33.1 Major depress medhat disorde r, recurre nt, moderat dwight PAYTON GEORGE Ramesh 12[facility] Outpatient Encounter [id number] 12/09 [facility] [place] FAMILY PSYTX W/PT 50 MIN [id number] Diagnos is: ICD-10- CM F33.1 Major depress medhat disorde r, recurre nt, moderat e PAYTON GEORGE [facility] LOW 20 MIN [id number] Diagnos is: ICD-10- CM F33.40 Major depress medhat disorde r, recurre nt, in remissi on, unsp [facility] CHEUNG G 12/11 [facility] LD PSYTX W PT 45 MINUTES [id number] Diagnos is: ICD-10- CM F33.2 Major depress v disorde r, recurre nt severe w/o psych feature s PAYTON GEORGE 12[facility] Outpatient Encounter [id number] 12/15 [facility] [place] PSYTX W PT 45 MINUTES [id number] Diagnos is: ICD-10- CM F33.2 Major depress v disorde r, recurre nt severe w/o psych feature s PAYTON GEORGE 12[facility]counter [id number] 12/25 [facility] Procedures Combined list of: 1) Procedures from [facility] facilities going back up to thelast 18 months, not all VA non-surgical procedures are included; 2) All procedures from the Department of Defense facilities. Procedure Procedure Type Code Date Perfomer Comments Sour e MEDICAL NUTRITION THERAPY; INITIAL ASSESSMENT AND INTERVENTION, INDIVIDUAL, [id number] WITH THE PATIENT, EACH 15 MINUTES 02/04/20 09 [facility] PREPARATION OF REPORT OF PATIENT'S PSYCHIATRIC STATUS, HISTORY, TREATMENT, OR PROGRESS (OTHER THAN FOR LEGAL OR CONSULTATIVE PURPOSES) FOR OTHER INDIVIDUALS, AGENCIES, OR INSURANCE CARRIERS 05/02/20 12 [facility] INDIVIDUAL PSYCHOTHERAPY, INSIGHT ORIENTED, BEHAVIOR MODIFYING AND/OR SUPPORTIVE, IN AN OFFICE OR OUTPATIENT FACILITY, APPROXIMATELY 20 TO 30 MINUTES [id number] W THE PATIENT; W MED EVAL & MGT SER 12/11/19 12 [facility] INDIVIDUAL PSYCHOTHERAPY, INSIGHT ORIENTED, BEHAVIOR MODIFYING AND/OR SUPPORTIVE, IN AN OFFICE OR OUTPATIENT FACILITY, APPROXIMATELY 45 TO 50 MINUTES [id number]-[id number] WITH THE PATIENT 10/30/20 11 [facility] PHARMACOLOGIC MANAGEMENT, INCLUDING PRESCRIPTION, USE, AND REVIEW OF MEDICATION WITH NO MORE THAN MINIMAL MEDICAL PSYCHOTHERAPY 09/12/20 11 [facility] INDIVIDUAL PSYCHOTHERAPY, INSIGHT ORIENTED, BEHAVIOR MODIFYING AND/OR SUPPORTIVE, IN AN OFFICE OR OUTPATIENT FACILITY, APPROXIMATELY 75 TO 80 MINUTES [id number]-[id number] WITH THE PATIENT 09/06/20 11 [facility] INDIVIDUAL PSYCHOTHERAPY, INSIGHT ORIENTED, BEHAVIOR MODIFYING AND/OR SUPPORTIVE, IN AN OFFICE OR OUTPATIENT FACILITY, APPROXIMATELY 75 TO 80 MINUTES [id number] WITH THE PATIENT 08/16/20 11 [facility] PHARMACOLOGIC MANAGEMENT, INCLUDING PRESCRIPTION, USE, AND REVIEW OF MEDICATION WITH NO MORE THAN MINIMAL MEDICAL PSYCHOTHERAPY 08/15/20 11 [facility] INDIVIDUAL PSYCHOTHERAPY, INSIGHT ORIENTED, BEHAVIOR MODIFYING AND/OR SUPPORTIVE, IN AN OFFICE OR OUTPATIENT FACILITY, APPROXIMATELY 75 TO 80 MINUTES [id number]-HA-[id number] WITH THE PATIENT 06/07/20 11 [facility] INDIVIDUAL PSYCHOTHERAPY, INSIGHT ORIENTED, BEHAVIOR MODIFYING AND/OR SUPPORTIVE, IN AN OFFICE OR OUTPATIENT FACILITY, APPROXIMATELY 45 TO 50 MINUTES [id number] W THE PATIENT; W MED EVAL & MGT SER 06/05/20 11 [facility] INDIVIDUAL PSYCHOTHERAPY, INSIGHT ORIENTED, BEHAVIOR MODIFYING AND/OR SUPPORTIVE, IN AN OFFICE OR OUTPATIENT FACILITY, APPROXIMATELY 75 TO 80 MINUTES [id number]-[id number] WITH THE PATIENT 05/29/20 11 [facility] INDIVIDUAL PSYCHOTHERAPY, INSIGHT ORIENTED, BEHAVIOR MODIFYING AND/OR SUPPORTIVE, IN AN OFFICE OR OUTPATIENT FACILITY, APPROXIMATELY 75 TO 80 MINUTES [id number] WITH THE PATIENT 05/25/20 11 [facility] DETERMINATION OF REFRACTIVE STATE 05/22/20 11 [facility] INDIVIDUAL PSYCHOTHERAPY, INSIGHT ORIENTED, BEHAVIOR MODIFYING AND/OR SUPPORTIVE, IN AN OFFICE OR OUTPATIENT FACILITY, APPROXIMATELY 75 TO 80 MINUTES OWKZ-[id number] WITH THE PATIENT 05/15/20 11 [facility] INDIVIDUAL PSYCHOTHERAPY, INSIGHT ORIENTED, BEHAVIOR MODIFYING AND/OR SUPPORTIVE, IN AN OFFICE OR OUTPATIENT FACILITY, APPROXIMATELY 75 TO 80 MINUTES VHUR-NC-[id number] WITH THE PATIENT 05/10/20 11 [facility] INDIVIDUAL PSYCHOTHERAPY, INSIGHT ORIENTED, BEHAVIOR MODIFYING AND/OR SUPPORTIVE, IN AN OFFICE OR OUTPATIENT FACILITY, APPROXIMATELY 75 TO 80 MINUTES [id number]-[id number] WITH THE PATIENT 05/09/20 11 [facility] INDIVIDUAL PSYCHOTHERAPY, INSIGHT ORIENTED, BEHAVIOR MODIFYING AND/OR SUPPORTIVE, IN AN OFFICE OR OUTPATIENT FACILITY, APPROXIMATELY 75 TO 80 MINUTES [id number]-TR-[id number] WITH THE PATIENT 05/03/20 11 [facility] INDIVIDUAL PSYCHOTHERAPY, INSIGHT ORIENTED, BEHAVIOR MODIFYING AND/OR SUPPORTIVE, IN AN OFFICE OR OUTPATIENT FACILITY, APPROXIMATELY 75 TO 80 MINUTES FYOT-[id number] WITH THE PATIENT 05/02/20 11 [facility] INDIVIDUAL PSYCHOTHERAPY, INSIGHT ORIENTED, BEHAVIOR MODIFYING AND/OR SUPPORTIVE, IN AN OFFICE OR OUTPATIENT FACILITY, APPROXIMATELY 75 TO 80 MINUTES [id number]-GS-[id number] WITH THE PATIENT 05/01/20 11 [facility] PSYCHIATRIC EVALUATION OF HOSPITAL RECORDS, OTHER PSYCHIATRIC REPORTS, PSYCHOMETRIC AND/OR PROJECTIVE TESTS, AND OTHER ACCUMULATED DATA FOR MEDICALDIAGNOSTIC PURPOSES 04/26/20 11 [facility] INDIVIDUAL PSYCHOTHERAPY, INSIGHT ORIENTED, BEHAVIOR MODIFYING AND/OR SUPPORTIVE, IN AN OFFICE OR OUTPATIENT FACILITY, APPROXIMATELY 75 TO 80 MINUTES HSFZ-VD-[id number] WITH THE PATIENT 04/25/20 11 [facility] INTERPRETATION OR EXPLANATION OF RESULTS OF PSYCHIATRIC, OTH MEDICAL EXAMS/PROCEDURES, OR OTH ACCUMULATED DATA TO FAMILY OR OTH RESPONSIBLE PERSONS,OR ADVISING THEM HOW TO ASSIST PATIENT 04/18/20 11 [facility] INTERPRETATION OR EXPLANATION OF RESULTS OF PSYCHIATRIC, OTH MEDICAL EXAMS/PROCEDURES, OR OTH ACCUMULATED DATA TO FAMILY OR OTH RESPONSIBLE PERSONS,OR ADVISING THEM HOW TO ASSIST PATIENT 03/29/20 11 [facility] INTERPRETATION OR EXPLANATION OF RESULTS OF PSYCHIATRIC, OTH MEDICAL EXAMS/PROCEDURES, OR OTH ACCUMULATED DATA TO FAMILY OR OTH RESPONSIBLE PERSONS,OR ADVISING THEM HOW TO ASSIST PATIENT 03/02/20 11 [facility] INTERPRETATION OR EXPLANATION OF RESULTS OF PSYCHIATRIC, OTH MEDICAL EXAMS/PROCEDURES, OR OTH ACCUMULATED DATA TO FAMILY OR OTH RESPONSIBLE PERSONS,OR ADVISING THEM HOW TO ASSIST PATIENT 02/28/20 11 [facility] INTERPRETATION OR EXPLANATION OF RESULTS OF PSYCHIATRIC, OTH MEDICAL EXAMS/PROCEDURES, OR OTH ACCUMULATED DATA TO FAMILY OR OTH RESPONSIBLE PERSONS,OR ADVISING THEM HOW TO ASSIST PATIENT 02/17/20 11 [facility] TELE ASSESS & MGT SRV PROV QUAL NONPHYS HLTH CARE PRO TO EST PAT,PARENT,GUARD NOT ORIG REL ASSESS & MGT SRV PROV W/IN PREV 7 DAYS NOR LEAD ASSESS & MGT SRV/PX W/IN NXT 24H/SOON APT; 11-20 MIN MED DIS 02/15/20 11 [facility] INTERPRETATION OR EXPLANATION OF RESULTS OF PSYCHIATRIC, OTH MEDICAL EXAMS/PROCEDURES, OR OTH ACCUMULATED DATA TO FAMILY OR OTH RESPONSIBLE PERSONS,OR ADVISING THEM HOW TO ASSIST PATIENT 01/31/20 11 [facility] ENVIRONMENTAL INTERVENTION FOR MEDICAL MGMT PURPOSES ON A PSYCHIATRIC PATIENT'S BEHALF WITH AGENCIES, EMPLOYERS, OR INSTITUTIONS 01/24/20 11 [facility] INDIVIDUAL PSYCHOTHERAPY, INSIGHT ORIENTED, BEHAVIOR MODIFYING AND/OR SUPPORTIVE, IN AN OFFICE OR OUTPATIENT FACILITY, APPROXIMATELY 75 TO 80 MINUTES [id number] WITH THE PATIENT 01/24/20 11 [facility] PHARMACOLOGIC MANAGEMENT, INCLUDING PRESCRIPTION, USE, AND REVIEW OF MEDICATION WITH NO MORE THAN MINIMAL MEDICAL PSYCHOTHERAPY 01/24/20 11 [facility] INTERPRETATION OR EXPLANATION OF RESULTS OF PSYCHIATRIC, OTH MEDICAL EXAMS/PROCEDURES, OR OTH ACCUMULATED DATA TO FAMILY OR OTH RESPONSIBLE PERSONS,OR ADVISING THEM HOW TO ASSIST PATIENT 01/20/20 11 [facility] INDIVIDUAL PSYCHOTHERAPY, INSIGHT ORIENTED, BEHAVIOR MODIFYING AND/OR SUPPORTIVE, IN AN OFFICE OR OUTPATIENT FACILITY, APPROXIMATELY 75 TO 80 MINUTES [id number]-[id number]-[id number] WITH THE PATIENT 01/19/20 11 [facility] ENVIRONMENTAL [...] OUTPATIENT FACILITY, APPROXIMATELY 75 TO 80 MINUTES [id number]-[id number]-[id number] WITH THE PATIENT 01/10/20 11 [facility] INDIVIDUAL PSYCHOTHERAPY, INSIGHT ORIENTED, BEHAVIOR MODIFYING AND/OR SUPPORTIVE, IN AN OFFICE OR OUTPATIENT FACILITY, APPROXIMATELY 75 TO 80 MINUTES [id number]-EV-[id number] WITH THE PATIENT 01/04/20 11 [facility] INDIVIDUAL PSYCHOTHERAPY, INSIGHT ORIENTED, BEHAVIOR MODIFYING AND/OR SUPPORTIVE, IN AN OFFICE OR OUTPATIENT FACILITY, APPROXIMATELY 75 TO 80 MINUTES [id number] WITH THE PATIENT 12/29/19 11 [facility] INDIVIDUAL PSYCHOTHERAPY, INSIGHT ORIENTED, BEHAVIOR MODIFYING AND/OR SUPPORTIVE, IN AN OFFICE OR OUTPATIENT FACILITY, APPROXIMATELY 45 TO 50 MINUTES [id number]-VL-[id number] W THE PATIENT; W MED EVAL & MGT SER 12/26/19 11 [facility] INDIVIDUAL PSYCHOTHERAPY, INSIGHT ORIENTED, BEHAVIOR MODIFYING AND/OR SUPPORTIVE, IN AN OFFICE OR OUTPATIENT FACILITY, APPROXIMATELY 45 TO 50 MINUTES UUHJ-[id number] W THE PATIENT; W MED EVAL & MGT SER 12/12/19 11 [facility] INDIVIDUAL PSYCHOTHERAPY, INSIGHT ORIENTED, BEHAVIOR MODIFYING AND/OR SUPPORTIVE, IN AN OFFICE OR OUTPATIENT FACILITY, APPROXIMATELY 45 TO 50 MINUTES [id number] WITH THE PATIENT 12/05/19 11 [facility] ENVIRONMENTAL [...] OUTPATIENT FACILITY, APPROXIMATELY 45 TO 50 MINUTES EHSH-VN-HEOO W THE PATIENT; W MED EVAL & MGT SER 11/20/19 11 [facility] INDIVIDUAL PSYCHOTHERAPY, INSIGHT ORIENTED, BEHAVIOR MODIFYING AND/OR SUPPORTIVE, IN AN OFFICE OR OUTPATIENT FACILITY, APPROXIMATELY 45 TO 50 MINUTES GHYH-[id number]-ABPW WITH THE PATIENT 11/17/19 11 [facility] INDIVIDUAL PSYCHOTHERAPY, INSIGHT ORIENTED, BEHAVIOR MODIFYING AND/OR SUPPORTIVE, IN AN OFFICE OR OUTPATIENT FACILITY, APPROXIMATELY 45 TO 50 MINUTES [id number]-[id number] WITH THE PATIENT 10/24/20 10 [facility] INTERPRETATION OR EXPLANATION OF RESULTS OF PSYCHIATRIC, OTH MEDICAL EXAMS/PROCEDURES, OR OTH ACCUMULATED DATA TO FAMILY OR OTH RESPONSIBLE PERSONS,OR ADVISING THEM HOW TO ASSIST PATIENT 10/20/20 10 [facility] PHARMACOLOGIC MANAGEMENT, INCLUDING PRESCRIPTION, USE, AND REVIEW OF MEDICATION WITH NO MORE THAN MINIMAL MEDICAL PSYCHOTHERAPY 10/17/20 10 [facility] INDIVIDUAL PSYCHOTHERAPY, INSIGHT ORIENTED, BEHAVIOR MODIFYING AND/OR SUPPORTIVE, IN AN OFFICE OR OUTPATIENT FACILITY, APPROXIMATELY 75 TO 80 MINUTES [id number] WITH THE PATIENT 10/16/20 10 [facility] INDIVIDUAL PSYCHOTHERAPY, INSIGHT ORIENTED, BEHAVIOR MODIFYING AND/OR SUPPORTIVE, IN AN OFFICE OR OUTPATIENT FACILITY, APPROXIMATELY 45 TO 50 MINUTES [id number] WITH THE PATIENT 09/27/20 10 [facility] INDIVIDUAL PSYCHOTHERAPY, INSIGHT ORIENTED, BEHAVIOR MODIFYING AND/OR SUPPORTIVE, IN AN OFFICE OR OUTPATIENT FACILITY, APPROXIMATELY 75 TO 80 MINUTES SQJA-[id number] WITH THE PATIENT 09/20/20 10 [facility] INDIVIDUAL PSYCHOTHERAPY, INSIGHT ORIENTED, BEHAVIOR MODIFYING AND/OR SUPPORTIVE, IN AN OFFICE OR OUTPATIENT FACILITY, APPROXIMATELY 45 TO 50 MINUTES SRTA-AQ-[id number] WITH THE PATIENT 09/19/20 10 [facility] ENVIRONMENTAL INTERVENTION FOR MEDICAL MGMT PURPOSES ON A PSYCHIATRIC PATIENT'S BEHALF WITH AGENCIES, EMPLOYERS, OR INSTITUTIONS 09/17/20 10 [facility] PSYCHIATRIC DIAGNOSTIC INTERVIEW EXAMINATION 09/11/20 10 [facility] PSYCHIATRIC DIAGNOSTIC INTERVIEW EXAMINATION 09/04/20 10 [facility] SERVICE(S) PROVIDED ON AN EMERGENCY BASIS IN THE OFFICE, WHICH DISRUPTS OTHER SCHEDULED OFFICE SERVICES, IN ADDITION TO BASIC SERVICE 08/28/20 10 [facility] SCREENING PAPANICOLAOU SMEAR; OBTAINING, PREPARING AND CONVEYANCE OF CERVICAL OR VAGINAL SMEAR TO LABORATORY 12/13/19 10 [facility] Psychiatric Therapy Preparation of Psychiatric Status Report Psychiatric Therapy Preparation of Psychiatric Status Report [id number] 05/02/20 12 JAMEY HERNANDEZ DoD Psychotherapy Individual Approx 30 Min W/ Medical Evaluation & Management Psychotherapy Individual Approx 30 Min W/ Medical Evaluation & Management [id number] 12/11/19 12 TODD OLIVER Do[facility] Psychotherapy Individual Approximately 45 Minutes Psychotherapy Individual Approximately 45 Minutes [id number] 10/30/20 11 JAMEY HERNANDEZ [facility] Psychotherapy With Medication Management Psychotherapy With Medication Management [id number] 09/12/20 11 MADISON CENTENO DoD Psychotherapy Individual Approximately 75-80 Minutes Psychotherapy Individual Approximately 75-80 Minutes [id number] 09/07/20 11 JAMEY HERNANDEZ DoD Psychotherapy Individual Approximately 75-80 Minutes Psychotherapy Individual Approximately 75-80 Minutes [id number] 08/16/20 11 JAMEY HERNANDEZ [facility] Psychotherapy With Medication Management Psychotherapy With Medication Management [id number] 08/15/20 11 MADISON CENTENO Psychotherapy Individual Approximately 75-80 Minutes Psychotherapy Individual Approximately 75-80 Minutes [id number] 06/08/20 11 JAMEY HERNANDEZ [facility] Psychotherapy Indiv Approx 45 Min W/ Medical Evaluation & Management Psychotherapy Indiv Approx 45 Min W/ Medical Evaluation & Management [id number] 06/05/20 11 MADISON CENTENO [facility] Psychotherapy Individual Approximately 75-80 Minutes Psychotherapy Individual Approximately 75-80 Minutes [id number] 05/29/20 11 JAMEY HERNANDEZ [facility] Psychotherapy Individual Approximately 75-80 Minutes Psychotherapy Individual Approximately 75-80 Minutes [id number] 05/26/20 11 JAMEY HERNANDEZ Ophthalmological New Patient Start Comprehensive Care Ophthalmological New Patient Start Comprehensive Care [id number] 05/22/20 11 STACIE THAKKAR Spectacles Services Fitting Monofocal Except For Aphakia Spectacles Services Fitting Monofocal Except For Aphakia [id number] 05/22/20 11 STACIE THAKKAR Determination Of Refractive State Determination Of Refractive State 76872 05/22/20 11 STACIE THAKKAR Psychotherapy Individual Approximately 75-80 Minutes Psychotherapy Individual Approximately 75-80 Minutes [id number] 05/15/20 11 MADISON CENTENO [facility] Psychotherapy Individual Approximately 75-80 Minutes Psychotherapy Individual Approximately 75-80 Minutes [id number] 05/10/20 11 MADISON CENTENO Psychotherapy Individual Approximately 75-80 Minutes Psychotherapy Individual Approximately 75-80 Minutes [id number] 05/09/20 11 JAMEY HERNANDEZ [facility] Psychotherapy Individual Approximately 75-80 Minutes Psychotherapy Individual Approximately 75-80 Minutes [id number] 05/03/20 11 JAMEY HERNANDEZ [facility] Psychotherapy Individual Approximately 75-80 Minutes Psychotherapy Individual Approximately 75-80 Minutes [id number] 05/02/20 11 MADISON CENTENO Psychiatric Diagnostic Evaluation Review of Records and Reports Psychiatric Diagnostic Evaluation Review of Records and Reports [id number] 05/01/20 11 JAMEY HERNANDEZ [facility] Psychotherapy Individual Approximately 75-80 Minutes Psychotherapy Individual Approximately 75-80 Minutes [id number] 05/01/20 11 BUNTING-CECY E, MADISON F DoD Psychotherapy Individual Approximately 75-80 Minutes Psychotherapy Individual Approximately 75-80 Minutes [id number] 04/26/20 11 JAMEY HERNANDEZ [facility] Psychiatric Therapy Counseling Family / Guardians Psychiatric Therapy Counseling Family / Guardians [id number] 04/19/20 11 JAMEY HERNANDEZ [facility] Psychiatric Therapy Counseling Family / Guardians Psychiatric Therapy Counseling Family / Guardians [id number] 04/03/20 11 JAMEY HERNANDEZ Psychiatric Therapy Environmental Intervention Psychiatric Therapy Environmental Intervention [id number] 03/14/20 11 JAMEY HERNANDEZ Psychiatric Therapy Counseling Family / Guardians Psychiatric Therapy Counseling Family / Guardians [id number] 03/13/20 11 JAMEY HERNANDEZ [facility] Psychiatric Therapy Counseling Family / Guardians Psychiatric Therapy Counseling Family / Guardians [id number] 02/17/20 11 JAMEY HERNANDEZ [facility] Non-Physician Phone Call To Pt/Provider Intermed (11-20 min) Non-Physician Phone Call To Pt/Provider Intermed (11-20 min) [id number] 02/15/20 11 NATALI BEE [facility] Psychiatric Therapy Counseling Family / Guardians Psychiatric Therapy Counseling Family / Guardians [id number] 02/10/20 11 JAMEY HERNANDEZ [facility] Psychotherapy Individual Approximately 75-80 Minutes Psychotherapy Individual Approximately 75-80 Minutes [id number] 01/25/20 11 JAMEY HERNANDEZ Psychotherapy With Medication Management Psychotherapy With Medication Management [id number] 01/24/20 11 MADISON CENTENO [facility] Psychiatric Therapy Counseling Family / Guardians Psychiatric Therapy Counseling Family / Guardians [id number] 01/21/20 11 JAMEY HERNANDEZ [facility] Psychiatric Therapy Counseling Family / Guardians Psychiatric Therapy Counseling Family / Guardians [id number] 01/19/20 11 JAMEY HERNANDEZ Psychiatric Therapy Environmental Intervention Psychiatric Therapy Environmental Intervention [id number] 01/19/20 11 JAMEY HERNANDEZ [facility] Psychotherapy Indiv Approx 45 Min W/ Medical Evaluation & Management Psychotherapy Indiv Approx 45 Min W/ Medical Evaluation & Management [id number] 12/26/19 11 MADISON CENTENO Do[facility] Psychotherapy Indiv Approx 45 Min W/ Medical Evaluation & Management Psychotherapy Indiv Approx 45 Min W/ Medical Evaluation & Management [id number] 12/13/19 11 MADISON CENTENO Do[facility] Psychiatric Therapy Environmental Intervention Psychiatric Therapy Environmental Intervention [id number] 12/07/19 11 JAMEY HERNANDEZ Psychiatric Therapy Counseling Family / Guardians Psychiatric Therapy Counseling Family / Guardians [id number] 12/07/19 11 JAMEY HERNANDEZ [facility] Psychotherapy Individual Approximately 45 Minutes Psychotherapy Individual Approximately 45 Minutes [id number] 12/05/19 11 JAMEY HERNANDEZ [facility] Psychiatric Therapy Counseling Family / Guardians Psychiatric Therapy Counseling Family / Guardians [id number] 12/05/19 11 JAMEY HERNANDEZ [facility] Psychotherapy Individual Approximately 45 Minutes Psychotherapy Individual Approximately 45 Minutes [id number] 11/22/19 11 JAMEY HERNANDEZ [facility] Psychotherapy Individual Approximately 75-80 Minutes Psychotherapy Individual Approximately 75-80 Minutes [id number] 11/22/19 11 JAMEY HERNANDEZ Do[facility] Psychotherapy Indiv Approx 45 Min W/ Medical Evaluation & Management Psychotherapy Indiv Approx 45 Min W/ Medical Evaluation & Management [id number] 11/20/19 11 MADISON CENTENO [facility] Psychotherapy With Medication Management Psychotherapy With Medication Management [id number] 10/17/20 10 MADISON CENTENO DoD Psychotherapy Individual Approximately 75-80 Minutes Psychotherapy Individual Approximately 75-80 Minutes [id number] 09/20/20 10 MADISON CENTENO DoD Psychiatric Therapy Environmental Intervention Psychiatric Therapy Environmental Intervention [id number] 09/17/20 10 JAMEY HERNANDEZ [facility] Psychiatric Diagnostic Evaluation Comprehensive Examination Psychiatric Diagnostic Evaluation Comprehensive Examination [id number] 09/17/20 10 JAMEY HERNANDEZ [facility] Psychiatric Diagnostic Evaluation Comprehensive Examination Psychiatric Diagnostic Evaluation Comprehensive Examination [id number] 09/04/20 10 TOÑO CRISOSTOMO Services Provided On An Emergency Basis In The Office 08/28/20 10 LEYLA PALMER [facility] Psychotherapy Individual Approximately 45 Minutes Psychotherapy Individual Approximately 45 Minutes [id number] 08/28/20 10 LEYLA PALMER [facility] Screening papanicolaou smear; obtaining, preparing and conveyance of cervical or vaginal smear to laboratory 12/13/19 10 PETER PAGAN [facility] Medical Nutrition Therapy Initial A e ment And Intervention Each 15 Minutes Medical Nutrition Therapy Initial Assessment And Intervention Each 15 Minutes [id number] 02/04/20 09 DONNELL SPEARS [facility] Social History Combined list of available smoking, tobacco, and other social history from Department of Defense and Veterans Affairs facilities. Social History Type Response Date Comment [facility] e Tobacco smoking status [facility]-TOBAC[facility] NEVER USED 02/07/20 [place] [facility]19[facility]2022 [place] [facility] [place] [facility]2020 [place] History of tobacco use [facility]-TOBACCO NEVER USED 10/03/2018 [place] History of tobacco use LIFETIME NON-TOBACCO USER 7 [place] History of tobacco use LIFETIME NON-TOBACCO USER 6 [place] History of tobacco use LIFETIME NON-SMOKER 03/17/2014 [facility] History of tobacco use LIFETIME NON-TOBACCO USER 3 [place] This section is an empty social history section. [facility] Plan of Care List of future care activities from Department of Veterans [facility] facilities. Additional future care activities may be listed in the Assessment and Plan section. Date/Time Care Activity Care Activity Detail [facility] 01/01/2025 AMBULATORY - PSYCHIATRY [facility] [place] [facility] 02/12/2025 AMBULATORY - MEDICINE AMBULATORY - MEDICI [facility] 12/11/2024 Consult Order [facility] Supervising Editor News Reel's Choice [facility] Advance Directives List of completed, amended, or rescinded Advance Directives on record at Department of Veterans Affairs facilities. An actual copy of the Directive is not included. Date Advance Directive Provider Source 07/02/2024 ADVANCE DIRECTIVE DISCUSSION REYNALDO GRIMES [facility] [place] [facility] 04/14/2014 ADVANCE DIRECTIVE DISCUSSION ESTELA FLORENCE [facility]
[2024-12-28 15:31] LABS: MANUAL DIFF FLAG NO
[2024-12-28 16:07] LABS: Basophils Absolute Auto 0.1 X10*3/uL (0.0-0.2); Basophils Percent Auto 0.6 % (0-2); Eosinophils Absolute Auto 0.1 X10*3/uL (0.0-0.4); Hematocrit 40.3 % (37.0-47.0); Hemoglobin 13.7 g/dl (12.0-16.0); Imm Gran Abs Auto 0.03 X10*3/uL (0.00-0.03); Imm Gran Pct Auto 0.4 % (0.0-0.4); Lymphocytes Absolute Auto 1.7 X10*3/uL (1.2-4.9); Lymphocytes Percent Auto 20.8 % (20-40); Mean Corpuscular Hemoglobin 32.6 pg (27.0-33.0); Mean Platelet Volume 9.9 fL (9.4-12.3); Monocytes Absolute Auto 0.5 X10*3/uL (0.1-1.2); Monocytes Percent Auto 5.8 % (2-11); Neutrophils Percent Auto 71.4 % (45-73); Platelet Count 294 X10*3/uL (160-400); White Blood Count 8.3 X10*3/uL (4.8-10.8)
[2024-12-28 17:45] LABS: Alanine Aminotransferase 19 U/L (0-31); Albumin Level 4.2 g/dL (3.5-5.0); Alkaline Phosphatase 53 U/L (39-117); Anion Gap 10 (12-20); Aspartate Amino Transferase 13 U/L (5-31); Bilirubin Total 0.2 mg/dL (0.0-1.0); Blood Urea Nitrogen 20 mg/dL (9-16); Calcium 9.3 mg/dL (8.4-10.2); Carbon Dioxide 26 mmol/L (22-29); Chloride 107 mmol/L (96-108); Estimated Glomerular Filt Rate > 60; Glucose Random 105 mg/dL (60-115); Potassium 4.3 mmol/L (3.3-5.1); Sodium 139 mmol/L (135-145); Total Protein 7.1 g/dL (6.5-8.0)
[2024-12-28 18:00] LABS: Vitamin D 25-OH Total 48.2 ng/mL (>30)
[2024-12-28 18:08] LABS: Folate 11.9 ng/mL (> or = 4.0); Vitamin B12 921 pg/mL (200-900)
[2025-01-03 07:18] LABS: Vitamin B1 22 nmol/L (8-30)
== END 2024-12-28 15:09 | disposition home or self-care (01) ==
LOC: HO.LAB 15:08
PROVIDERS: Visit Provider Clinical Nurse Specialist Psychiatric/Mental Health
DX: F33.2 Major depressive disorder, recurrent severe without psychotic features (principal)
CPT/HCPCS: 36415; 80053; 82306; 82607; 82746; 83735; 84425; 84443; 85025

== ENCOUNTER 2024-12-29 15:00 | Outpatient (RCR) | payer OTHER, SELFPAY ==
--- NOTE | 2024-12-28 13:59 | P.CONTMS_ITS ---
History of Present Illness General Data Date of Service: 12/28/2024 Reason for consult: major depression recurrent severe eval for TMS Requesting provider: Stefan Cunningham History of Present Illness pt referred by [place] psychiatrist Dr Reyes due to severe medication resistant depression and OCD. Pt is accompanied by her parents. pt met with this typewriter repairer alone for 30 minutes and then had parents join meeting for another 30 minutes. Pt struggling with an episode of severe anxiety and depression since June 2024. She was living in [place] working FT and had just bought a home when she was laid off from work and could not secure another FT job soon enough and found herself unable to afford her home; she describes being very disappointed and started to feel more and more depressed and anxious. Pt hospitalized for depression in June 2024 at [place] in [place]. She has struggled with SI. currently she has no active paln or intent but she does have thoughts that she wishes she doesn't wake up in the morning. she feels sad, cries frequently, not sleeping well, ruminates, can't concentrate on things and finds her mind going back to negative hopeless thinking often, she reports pacing at home. 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 In 2023 she put a nail gun to her head in a suicide attempt but it malfunctioned and she did not end up hurting herslef; Sometime earlier in the years, she had a glass of lysol on her nightstand for a week thinking about killing herslef by drinking it. she says she finally got rid of it. She reports its extremely hard for her to stop ruminating on wanting a normal life, how unfair it is that she is depressed and anxious, and her inability to do anything during the day. She denies hearing voices. she denies any hallucinations or paranoid ideas. theres no evidence of psychosis. She is very hopeless and helpless. She is able to say she can can herself safe. she worries about the unstructured time after TMS appts saying it is very hard not to have anything to do but when she tries to do anything she can't focus. She has therapy once a week and says she can't meet more often. she has an appt with her outpatient psychiatris next week. She denies eating disordered behavior - no food restricting and no purging. Pt making hopeless statements and we discussed need for hsopital; pt states she can keep self safe and hopes that TMS will help; disucssed hospital if needing help staying safe or functioning worsens. Current PHQ9= 23 and GAD7= 21. She has no metal implants including no pacemaker or cochlear implants; she has no histroy of seizures or headaches. Past Psychiatric History/Medication Trials: 2023- [facility] inpatient -depression 2010 [facility] for anorexia nervosa she developed in and was then discharge from for medical reasons Failed medications: venlafaxine xr 150mg mirtazepnine 45mg at hs resulti up to 2 mg daily aripriprazole valium lexapro 40mg ativan seroquel [facility] Family History: grew up in [place] with both parents and 1 bio sister and 1 adopted brother (pt is oldest of 3) pt did well in school; was valedictorian in . went on to get Bachelors and then 2 masters' degrees in International Studies and [employer] studies; pt joined [employer] in 2008 working [email or web address]. Develop Anorexia Nervosa there and w hospitalized in 2010 and discharged medically in 2011. Pt moved to [facility] last year and worked for [employer], bought her own home, had friends and felt happy until her job was eliminated; she couldn't find another job right away and her home was unaffordable; she came home to live with parents. Social History: see above Substance History: none Trauma History: moral dilemmas in [place] per pt Meds/Allergies Meds Narrative: lexapro 40mg daily remeron 45 mg at bedtime seroqule 25mg 1-2 tabs at bedtime ativan 0.5mg QID Allergies Allergies Allergy/AdvReac Type Severity Reaction Status Date / Time No Known Allergies Allergy Verified 12/29/24 14:05 Mental Status Exam Mental Status Exam Patient Appearance: Well Grooomed and Appropriate Patient Orientation: Person, Place, Time and Situation Level of Consciousness: Restless Patient Behavior: Guarded, Cooperative, Anxious, Fatigued and Crying Mood Description: Depressed and Anxious Affect Description: Withdrawn, Depressed and Flat Patient Cognition Impaired: No Ability to Follow Directions: Fair Speech Pattern: Perseverating, Rambling and Soft-Spoken Memory Description: Episodic Impaired Hallucinations: None Delusions: Not Present Thought Process: Distracted Thought Content: positive for Obsessional Thoughts and positive for Preoccupation Judgement: Fair Assessment & Plan Assessment & Plan (1) Major depressive disorder, recurrent severe without psychotic features: Status: Acute Code(s): F33.2 - Major depressive disorder, recurrent severe without psychotic features (2) History of OCD (obsessive compulsive disorder): Status: Acute Code(s): Z86.59 - Personal history of other mental and behavioral disorders Plan pt is a candidate for TMS for treatment resistant depression and severe anxiety with history of OCD. She is hopeless and helpless; she is irritable . No current SI or HI. she has no medical contraindications for TMS; no metal implants; no seizures. no histroy of headaches. she agreed to blood work given her history of anorexia nervosa, her decreased appetite and low weight. most of blood work in normal range; no anemia, b12 level good, B1 pending. Parents were with patient and are involved inher care; they are supportive but frustrated that she has been severely depressed since june; they are frustrated that she will not take their suggestions to think positively and stay busy; she seems unable to which i tried to explain to parents. Pt given some guidance on writing a schedule for self so that she does not pace and ruminate most of the day. Total time managing care of this patient today ___65_ minutes. Patient educated on: diagnosis, medication risk/benefits, TMS and therapeutic strategies Guardian/Caregiver educated on: diagnosis, medication risk/benefits, TMS and therapeutic strategies Informed Consent: understands
--- NOTE | 2024-12-30 13:14 | HO.TMSDAILY2 ---
TMS Daily Progress Note Daily TMS Progress Note Date of Service: 12/29/24 Week #: 1 Treatment #(12-10): 1 PHQ-9 Pre-Treatment (12-07): 23 PHQ-9 Most Recent (12-07): 23 Reviewed: TMS Mapping/Re-mapping completed Verification: I have reviewed the TMS Web Applications Administrator Note and agree with the contents. The patient remains a candidate to continue TMS treatment per protocol. Assessment and Plan (1) Major depressive disorder, recurrent severe without psychotic features: Status: Acute Plan discussed with pt risks benefits alternatives . discussed how this is a gradual tx process pt with acute anxiety mapping completed. Also reviewed option of ect briefly if needed and pt could not maintain her safety. mapping completed
== END 2024-12-30 14:00 | disposition admitted as inpatient to this hospital (09) ==
LOC: HO.PTMS 15:00
PROVIDERS: Visit Provider Clinical Nurse Specialist Psychiatric/Mental Health
DX: F33.2 Major depressive disorder, recurrent severe without psychotic features (principal); Z86.59 Personal history of other mental and behavioral disorders
CPT/HCPCS: 90867

== ENCOUNTER → 2024-12-29 15:00 | Outpatient (BNV) | payer OTHER, SELFPAY | PROVIDERS: Visit Provider Psychiatry & Neurology Psychiatry | DX: F33.2 Major depressive disorder, recurrent severe without psychotic features (principal) | CPT/HCPCS: 90867 ==

== ENCOUNTER 2024-12-30 11:14 | Inpatient (IN) | payer OTHER, SELFPAY ==
--- NOTE | ~2024-12-30 | CT_ITS ---
CLINICAL HISTORY: R Side Head Pain, Abn EEG, unable to have MRI CT head without contrast Comparison: None Findings: No acute intracranial hemorrhage, mass effect or midline shift. There are 4 metallic structures entering the skull in a similar location in the right temporal and extending into the right frontal lobe and anterior right basal ganglia. Age of the structures is 4.8 cm lung and has the morphology of the nail. Suspect this is an old injury given the lack of overlying soft tissue abnormality and lack of intracranial hemorrhage or edema. There is a small old lacunar infarct in the right caudate head. The visualized paranasal sinuses and mastoid air cells are normal. The orbits are unremarkable. No skull fracture. IMPRESSION: 1. 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 Suspect this is an old nail injury given the lack of intracranial hemorrhage and edema adjacent. 2. Otherwise, no acute intracranial findings. This document has been electronically signed by: Jayro Candelario MD on 01/27/2025 20:40:27
[2024-12-30 11:34] VITALS: BP 104/65; PULSE 82; RESP 20; TEMP 36.1; O2SAT 99; BMI 19.2
--- NOTE | 2024-12-30 11:38 | PC.NURSE ---
patient brought in through triage, appears to be anxious. patient states that she has feelings of being overwhelmed and can not stop crying. patient states these feelings are [place] patient repeatedly keeps telling this RN she is scared she wont get the help she needs, that she wishes she didnt come to hospital. patient stated that she was inpatient at another hospital and they changed all of her medications and nothing is helping. patient is cooperative, changed into hospital attire, patient gave urine sample. patient belongings secured in locker 9. security assisted.
--- NOTE | 2024-12-30 11:49 | ED.PSYCH ---
HPI - Psych General Chief Complaint: Psychiatric Symptoms Stated Complaint: Mental Health Crisis Time Seen by Provider: 12/30/24 11:30 Source: patient and old records reviewed Mode of arrival: ambulatory Limitations: no limitations History of Present Illness ED Provider: IRLANDA ZUNIGA Narrative: 39 yo female who is a , hx of OCD, severe depression, TMS with Dr. Amin who presents very anxious states she cannot sleep she cannot think and is not normal. She denies SI/HI. [facility] [place] [facility]. She denies substance abuse. She notes life stress with a house in [place] that will not sell is making her life very hard. complaint: feels depressed and anxiety Onset (ago): month(s) Duration: getting worse History of same: Yes Relieving factors: none Exacerbating factors: other Context: new medication(s) and significant life stressor Associated psychiatric symptoms: depression Associated symptoms: denies other symptoms Treatments prior to arrival: none Related Data Home Medications ?Medication ?Instructions ?Recorded ?Confirmed escitalopram oxalate 20 mg tablet 20 mg PO DAILY 12/30/24 12/30/24 lorazepam 0.5 mg tablet (Ativan) 0.5 mg PO TID PRN Anxiety 12/30/24 12/30/24 mirtazapine 45 mg tablet 45 mg PO BEDTIME 12/30/24 12/30/24 quetiapine 25 mg tablet 25 mg PO BEDTIME PRN Anxiety 12/30/24 12/30/24 Allergies Allergy/AdvReac Type Severity Reaction Status Date / Time No Known Allergies Allergy Verified 12/30/24 11:36 Review of Systems Review of Systems: Constitutional : No Fever, No Chills ENT/Mouth : No Ear Pain, No Nasal Congestion, No sore throat Eyes: No Eye Pain, No Swelling, No Redness Cardiovascular : No Chest Pain, No SOB Respiratory : No Cough, No Sputum, No Dyspnea Gastrointestinal : No Nausea, No Vomiting, No Diarrhea, No Hematochezia, No Melena Genitourinary : No Dysuria, No Urinary Frequency, No Hematuria Musculoskeletal : No Myalgias Skin : No Skin Lesions, No rash Neuro : No Weakness, No Numbness, No Paresthesias, No Dizziness, No Headache Psych : positive Anxiety, positive Depression, no SI/HI Heme/Lymph: No Lymphadenopathy Endocrine : No Polyuria, No Polydipsia All other systems reviewed and are negative PMFSH Past Medical History Attestation statement: The following information was validated with the patient. Source: old records reviewed Medical History (Updated 12/30/24 @ 13:15 by Stefan Cunningham MD) Major depressive disorder, recurrent severe without psychotic features History of OCD (obsessive compulsive disorder) Social History Social History (Updated 12/30/24 @ 11:51 by Theresa Macdonald DO) Patient Tobacco Use Status: Never used Tobacco Advance Directives: No Advance Directives Information Provided: Yes Do you have a plan to hurt others: No Plan Physical Exam Vital Signs: Vital Signs: Last Vital Signs Temp 98.4 F 12/30/24 17:32 Pulse 68 12/30/24 17:32 Resp 14 12/30/24 17:32 BP 96/59 L 12/30/24 17:33 Pulse Ox 95 12/30/24 17:32 O2 Del Method Room Air 12/30/24 17:32 BMI result Body Mass Index 19.2 Appearance: Alert. Oriented X3. No acute distress. anxious talking fast, wringing her hands repeatedly and rubbing hands Eyes: Pupils equal, round and reactive to light. ENT: Pharynx normal. Neck: Normal inspection. Neck supple. CVS: Normal heart rate and rhythm. Pulses normal. Respiratory: No respiratory distress. Breath sounds normal. Abdomen: Soft and nontender. Skin: Skin warm and dry. Normal skin color. Normal skin turgor. Extremities: No lower extremity edema. No calf ttp Neuro: Oriented X 3. No motor deficit. No sensory deficit. CN2-12 intact Course Course Course Narrative: inpatient bed search Medications Administered Generic Name Dose Route Start Last Admin Trade Name Freq PRN Reason Stop Dose Admin Mirtazapine 45 mg 12/30/24 21:00 12/30/24 19:57 Mirtazapine 15 Mg Tablet PO 45 mg BEDTIME BREA Administration Discontinued Medications Generic Name Dose Route Start Last Admin Trade Name Freq PRN Reason Stop Dose Admin Lorazepam 2 mg 12/30/24 11:47 12/30/24 11:55 Lorazepam 1 Mg Tablet PO 12/30/24 11:48 2 mg ONCE ONE Administration Medical Decision Making Medical Decision Making MDM Narrative: 39 yo female who is a , hx of OCD, severe depression, TMS with Dr. Amin now here with worsening depression and anxiety but no SI/HI. At this time will need basic labs, CARE team consult. PO ativan for anxiety Differential Diagnosis Differential Diagnoses: The differential diagnosis associated with the presentation includes anxiety, depression, OCD Admission/Observation Consideration of admission/observation: Escalation of care including admission/observation considered physician observation started 1151am pending CARE team Consult Healthcare Provider Management of the patient was discussed with: Behavioral Health Provider Lab Data MDM Lab Attestation statement: I reviewed the patient's lab results. 12/30/24 12:05 12/30/24 12:05 Labs: Lab Results 12/30/24 12/30/24 Range/Units 11:48 12:05 WBC 6.2 (4.8-10.8) X10*3/uL RBC 4.48 (4.20-5.50) X10*6/uL Hgb 14.5 (12.0-16.0) g/dl Hct 42.2 (37.0-47.0) % MCV 94.2 (80.0-98.0) fL MCH 32.4 (27.0-33.0) pg MCHC 34.4 (31.0-35.0) g/dl RDW 11.9 (11.0-16.0) % Plt Count 293 (160-400) X10*3/uL MPV 9.5 (9.4-12.3) fL Immature Gran % (Auto) 0.2 (0.0-0.4) % Neut % (Auto) 68.4 (45-73) % Lymph % (Auto) 24.4 (20-40) % Jerome % (Auto) 5.9 (2-11) % Eos % (Auto) 0.5 (0-4) % Baso % (Auto) 0.6 (0-2) % Lymph # (Auto) 1.5 (1.2-4.9) X10*3/uL Jerome # (Auto) 0.4 (0.1-1.2) X10*3/uL Eos # (Auto) 0.0 (0.0-0.4) X10*3/uL Baso # (Auto) 0.0 (0.0-0.2) X10*3/uL Abs Immat Gran (auto) 0.01 (0.00-0.03) X10*3/uL Absolute Neuts (auto) 4.3 (2.0-8.3) x10*3/uL Absolute Nucleated RBC 0.000 (0.0-0.012) X10*3/uL Nucleated RBC % (auto) 0.0 (0.0-0.2) /100WBC Sodium 140 (135-145) mmol/L Potassium 4.6 (3.3-5.1) mmol/L Chloride 106 (96-108) mmol/L Carbon Dioxide 29 (22-29) mmol/L Anion Gap 10 L (12-20) BUN 16 (9-16) mg/dL Creatinine 0.76 (0.5-1.4) mg/dL Estim Creat Clear Calc 79.6 Estimated GFR > 60 Random Glucose 106 (60-115) mg/dL Calcium 9.4 (8.4-10.2) mg/dL Magnesium 2.2 (1.6-2.6) mg/dL Total Bilirubin 0.3 (0.0-1.0) mg/dL Direct Bilirubin 0.1 (0.0-0.5) mg/dL AST 20 (5-31) U/L ALT 21 (0-31) U/L Alkaline Phosphatase 57 (39-117) U/L Total Protein 7.6 (6.5-8.0) g/dL Albumin 4.4 (3.5-5.0) g/dL Beta HCG, Quant < 2 mIU/mL Urine Color Yellow Urine Appearance Cloudy Urine pH 6.0 (5.0-9.0) Ur Specific Hedley 1.025 (1.005-1.025) Urine Protein Negative (Neg-Trace) mg/dL Urine Glucose (UA) Negative (Negative) mg/dL Urine Ketones Negative (Negative) mg/dL Urine Blood Negative (Negative) Urine Nitrite Negative (Negative) Ur Leukocyte Esterase Small (1+) H (Negative) Urine RBC 0-2 (0-2) /HPF Urine WBC 0-5 (0-5) /HPF Ur Squamous Epith Cells >20 (0-2) /HPF Urine Bacteria 2+ (None Seen) Hyaline Casts 0-2 (0-2) /LPF Urine Test NEGATIVE (NEGATIVE) Urine Opiates Screen Not Detected (Not Detect) Ur Buprenorphine Scrn Not Detected (Not Detect) ng/mL Ur Oxycodone Screen Not Detected (Not Detect) ng/mL Urine Methadone Screen Not Detected (Not Detect) ng/mL Urine Fentanyl Screen Not Detected (Not Detect) Ur Barbiturates Screen Not Detected (Not Detect) Ur Phencyclidine Scrn Not Detected (Not Detect) Ur Amphetamines Screen Not Detected (Not Detect) U Benzodiazepines Scrn Not Detected (Not Detect) Urine Cocaine Screen Not Detected (Not Detect) U Marijuana (THC) Screen Not Detected (Not Detect) Ethyl Alcohol 11 mg/dL External Record Review External record reviewed: Outpatient record Discharge Plan Discharge Clinical Impression: Acute anxiety Patient Disposition: Still a Patient Prescriptions: No Action quetiapine 25 mg Tablet 25 mg PO BEDTIME PRN (Reason: Anxiety) lorazepam [Ativan] 0.5 mg Tablet 0.5 mg PO TID PRN (Reason: Anxiety) mirtazapine 45 mg Tablet 45 mg PO BEDTIME escitalopram oxalate 20 mg Tablet 20 mg PO DAILY Interventions: [place]-Suicide Risk Severity Scale Last Done: 12/30/24 19:25 Print Language: Swedish
[2024-12-30] MEDS: LORazepam 1 MG TABLET 2 MG PO (11:55)
[2024-12-30 11:58] LABS: Appearance Urine Cloudy; Color Urine Yellow; Glucose Urine UA Negative (Negative); Leukocyte Esterase Urine Small (1+) (Negative); Nitrite Urine Negative (Negative); Specific Gravity - Urine 1.025 (1.005-1.025); UMIC TRIGGER UACC YES; UPreg QC Valid YES; Urine Blood Negative (Negative); Urine Ketones Negative (Negative); Urine Pregnancy NEGATIVE (NEGATIVE); Urine Protein Negative (Neg-Trace)
[2024-12-30 12:06] LABS: Amphetamine Screen Urine Not Detected (Not Detect); Bacteria Urine 2+ (None Seen); Barbiturates, Urine Not Detected (Not Detect); Benzodiazepines Screen Urine Not Detected (Not Detect); Buprenorphine Scr Not Detected (Not Detect); Cannabinoid Screen Urine Not Detected (Not Detect); Cocaine Screen Urine Not Detected (Not Detect); Fentanyl, urine Not Detected (Not Detect); Hyaline Casts Urine 0-2 /LPF (0-2); Methadone Screen, Urine Not Detected (Not Detect); Opiate Screen Urine Not Detected (Not Detect); Oxycodone Screen Urine Not Detected (Not Detect); Phencyclidine Screen Urine Not Detected (Not Detect); RBC Urine 0-2 /HPF (0-2); Squamous Epithelial Cell Urine >20 /HPF (0-2); UACC Culture Trigger YES; WBC Urine 0-5 /HPF (0-5)
[2024-12-30 12:12] LABS: MANUAL DIFF FLAG NO
[2024-12-30 12:13] LABS: Basophils Percent Auto 0.6 % (0-2); Eosinophils Percent Auto 0.5 % (0-4); Hematocrit 42.2 % (37.0-47.0); Hemoglobin 14.5 g/dl (12.0-16.0); Imm Gran Abs Auto 0.01 X10*3/uL (0.00-0.03); Imm Gran Pct Auto 0.2 % (0.0-0.4); Lymphocytes Absolute Auto 1.5 X10*3/uL (1.2-4.9); Lymphocytes Percent Auto 24.4 % (20-40); Mean Corpuscular HGB Conc 34.4 g/dl (31.0-35.0); Mean Corpuscular Hemoglobin 32.4 pg (27.0-33.0); Mean Corpuscular Volume 94.2 fL (80.0-98.0); Mean Platelet Volume 9.5 fL (9.4-12.3); Monocytes Absolute Auto 0.4 X10*3/uL (0.1-1.2); Monocytes Percent Auto 5.9 % (2-11); Neutrophils Absolute Auto 4.3 x10*3/uL (2.0-8.3); Neutrophils Percent Auto 68.4 % (45-73); Platelet Count 293 X10*3/uL (160-400); Red Blood Count 4.48 X10*6/uL (4.20-5.50); Red Cell Distribution Width 11.9 % (11.0-16.0); White Blood Count 6.2 X10*3/uL (4.8-10.8)
[2024-12-30 12:41] LABS: Alanine Aminotransferase 21 U/L (0-31); Albumin Level 4.4 g/dL (3.5-5.0); Alkaline Phosphatase 57 U/L (39-117); Anion Gap 10 (12-20); Aspartate Amino Transferase 20 U/L (5-31); Bilirubin Direct 0.1 mg/dL (0.0-0.5); Bilirubin Total 0.3 mg/dL (0.0-1.0); Blood Urea Nitrogen 16 mg/dL (9-16); Calcium 9.4 mg/dL (8.4-10.2); Carbon Dioxide 29 mmol/L (22-29); Chloride 106 mmol/L (96-108); Creatinine Clr Calc Pharmacy 79.6; Estimated Glomerular Filt Rate > 60; Ethanol 11 mg/dL; Glucose Random 106 mg/dL (60-115); Magnesium 2.2 mg/dL (1.6-2.6); Potassium 4.6 mmol/L (3.3-5.1); Sodium 140 mmol/L (135-145); Total Protein 7.6 g/dL (6.5-8.0)
[2024-12-30 12:43] LABS: HCG Quantitative < 2 mIU/mL
--- NOTE | 2024-12-30 14:21 | MHC.CARE ---
Pt meets the criteria for IPLOC. Section 12a in chart. Provider in agreement.
[2024-12-30 17:32] VITALS: BP 98/62; PULSE 68; RESP 14; TEMP 36.9; O2SAT 95
[2024-12-30 17:33] VITALS: BP 96/59
--- NOTE | 2024-12-30 19:11 | MHC.CARE ---
Pt was declined by [facility] due to Dr. Minor recommending pt stay at [facility] for continuity of care
[2024-12-30] MEDS: Mirtazapine 15 MG TABLET 45 MG PO (19:57)
[2024-12-31 06:00] VITALS: BP 105/56; PULSE 80; RESP 16; TEMP 36.8; O2SAT 95
[2024-12-31] MEDS: LORazepam 0.5 MG TABLET PO ×2 (06:25→20:16)
[2024-12-31] MEDS: LORazepam 1 MG TABLET PO (07:17)
--- NOTE | 2024-12-31 08:55 | ECG_ITS ---
Test Reason : QTC CHECK Blood Pressure : */* mmHG Vent. Rate : 67 BPM Atrial Rate : 67 BPM P-R Int : 150 ms QRS Dur : 74 ms QT Int : 402 ms P-R-T Axes : 73 83 57 degrees QTcB Int : 424 ms Normal sinus rhythm Normal ECG No previous ECGs available Referred By: Theresa Macdonald Electronically Signed By: ROSCOE MELCHOR
--- NOTE | 2024-12-31 08:56 | MHC.CARE ---
Pt was declined by [facility] due to Dr. Minor recommending pt stay at [facility] for continuity of care. [facility] has no open beds today. [facility] has no open beds today. 3 denials for [facility] admission, we have an open female bed now and patient will be presented to providers for admission to [facility] today.
[2024-12-31] MEDS: Escitalopram Oxalate 20 MG TABLET PO ×2 (09:39→10:59)
--- NOTE | 2024-12-31 09:49 | PC.NURSE ---
Addendum entered by Nena Lu 12/31/24 10:49: additional 20mg lexapro ordered per patient home med and request. provider aware. Original Note: patient previously medicated with additional 1mg ativan, states improvement w/ anxiety at this time. reports that she takes 40mg lexapro daily - order for 20mg at this time. potential admission today
--- NOTE | 2024-12-31 11:06 | PHA.MEDREC ---
Addendum entered by Magda Taylor 01/01/25 11:41: [facility] I updated and added OTC from the list. Addendum entered by Kalpana Hernández RPh 12/31/24 11:41: Reviewed by [facility] Original Note: Pharmacy Consult ? Medication Reconciliation Pharmacy reviewed med rec done by nursing. Patient confirmed she is taking the Ecitalopram and stated she has both 20mg tabs and 10mg tabs and states she takes 1 20 mg tab and 2 10 mg tabs together daily, I called and spoke with the patients mother and she confirmed the Ecitalopram 20mg tab 2 tabs daily and is not taking the 10 mg tabs anymore. The patients mother also confirmed she is taking the Lorazepam 0.5mg tab QID as needed for anxiety; I updated that on the med rec, nurse had confirmed Lorazepam 0.5mg tabs TID as needed. The patient was not sure the last time she took her medications and the patients mother stated she should have taken them yesterday before coming in but she was not 100% sure.
[2024-12-31] MEDS: LORazepam 1 MG TABLET 2 MG PO (11:39)
[2024-12-31 15:59] VITALS: BP 107/59; PULSE 88; RESP 16; TEMP 37.4; O2SAT 98
--- NOTE | 2024-12-31 17:33 | PC.ADMIT ---
Nursing admission note: 39 year old female DX: Unspecified depressive disorder, Unspecified anxiety disorder. Signed conditional voluntary for admission. Referred for treatment by CARE team. Patient self presented to [facility] ED with her other reporting increased depression secondary to lack of employment and stress related to selling her home in [place]. Patient calm and cooperative with admission process. A+O x4. Maintained good eye contact, dressed in hospital attire. Focused on admission assessment however reports difficulty with focus and concentration. Reports depressed mood, high anxiety. Reports feeling overwhelmed . Passive SI, I wish God would take me in my sleep . Intermittent suicidal ideation, denies intent at this time. Prior suicide attempt in 2023, took an air gun with nails in it to my head I nicked myself and got scared . Agrees to inform staff if feeling she will act on ideation. Denies HI. Affect congruent. Thoughts linear and organized. Denies perceptual disturbances, no overt psychosis or expressed delusions. Reports anergia, anhedonia, avolition. Feels hopeless. I want to live a normal life . Denies sleep disturbances, denies appetite disturbance. Reports loss of job, listing of home and loss of friends and living environment contributing factors to increased depression. Patient started TMS with Dr. Cunningham recently, reports she is planning for ECT. Patient denies medical problems, history of treatment for eating disorder 2010. Medical discharge from [facility] in 2011. Reports was traumatic . Goal for admission is ECT, and having a normal life . Patient oriented to unit, placed on 15 minute checks. See nursing assessment/crisis evaluation for further details.
[2024-12-31 20:00] VITALS: BP 100/56; PULSE 70; RESP 16; TEMP 36.2; O2SAT 96
[2024-12-31 20:08] LABS: Alanine Aminotransferase 20 U/L (0-31); Alkaline Phosphatase 49 U/L (39-117); Anion Gap 12 (12-20); Aspartate Amino Transferase 11 U/L (5-31); Bilirubin Total 0.3 mg/dL (0.0-1.0); Blood Urea Nitrogen 26 mg/dL (9-16); Calcium 9.6 mg/dL (8.4-10.2); Carbon Dioxide 26 mmol/L (22-29); Chloride 104 mmol/L (96-108); Creatinine Clr Calc Pharmacy 81.9; Estimated Glomerular Filt Rate > 60; Glucose Random 89 mg/dL (60-115); Potassium 4.2 mmol/L (3.3-5.1); Sodium 138 mmol/L (135-145)
[2024-12-31] MEDS: traZODone HCL 50 MG TABLET PO (20:15)
[2024-12-31] MEDS: Mirtazapine 15 MG TABLET 45 MG PO (20:15)
[2024-12-31] MEDS: QUEtiapine Fumarate 25 MG TABLET PO (20:16)
[2025-01-01] MEDS: LORazepam 0.5 MG TABLET PO ×3 (06:02→17:58)
[2025-01-01 08:00] VITALS: BP 120/83; PULSE 62; RESP 16; TEMP 36.2; O2SAT 100
[2025-01-01 08:21] LABS: Cholesterol 196 mg/dL (<200); HDL Cholesterol 60 mg/dL (>40); LDL Cholesterol Calculated 121 mg/dL (<100); Triglycerides 78 mg/dL (<150)
[2025-01-01] MEDS: Escitalopram Oxalate 20 MG TABLET PO ×2 (09:03→10:50)
--- NOTE | 2025-01-01 09:26 | P.HPPS_ITS ---
HPI Date of Service: 01/01/25 Chief Complaint: Crisis Sources of Information: patient interviewed, chart reviewed and crisis/core team assessment reviewed HPI Narrative: Patient is a 39-year-old female, [employer] , with history of MDD, VENKAT, who presents for worsening and overwhelming anxiety and hopes to get ECT treatment. Patient reports depression and anxiety since teenage years. It has worsened significantly over the last year to the point where she has become debilitated; a constant stressor is her house in [place] remaining on the market, unsold; subsequently she has been living with her parents. Patient's depression has been significant and she endorses diminished interest, excessive guilt, low energy, poor concentration, having a force herself to shower... [facility] and patient had 1 session this Saturday however her anxiety and depression became so overwhelming these past few days to the point where she could not stop crying or pacing the solorzano that she felt unable to wait the full 30 days it takes for T MS to be effective; patient has consistent thoughts that life is not worth living; she says she will not actively take her own life but wishes she would just not wake up. Patient says I feel out of my mind... Patient called providers at the [facility] told her to come to the emergency room. Patient endorses history of trauma but does not disclose; says she has been diagnosed with VENKAT as well as depression. Denies history of any manic episodes or behaviors; no drug or alcohol abuse pt seen at 1:30pm on 01/01/25 Past Psychiatric History: Sees Dr. Reyes at the [facility] effexor for years; abilify tremors brexpiprazole tremors Medical Evaluation Reviewed: Yes [facility] Medical History (Updated 12/30/24 @ 13:15 by Stefan Cunningham MD) Major depressive disorder, recurrent severe without psychotic features History of OCD (obsessive compulsive disorder) Family History: grew up in [place] with both parents and 1 bio sister and 1 adopted brother (pt is oldest of 3) pt did well in school; was valedictorian in . 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 Develop Anorexia Nervosa there and w hospitalized in 2010 and discharged medically in 2011. Pt moved to [place] last year and worked for [employer], bought her own home, had friends and felt happy until her job was eliminated; she couldn't find another job right away and her home was unaffordable; she came home to live with parents. Social History: see above Substance History: denies Trauma History: moral dilemmas in [employer] per pt Diagnostics Vital Signs (24Hr): Vital Signs - 24 hr 12/31/24 15:59 12/31/24 20:00 Temperature 99.3 F 97.1 F Pulse Rate 88 70 Respiratory Rate 16 16 Blood Pressure 107/59 L 100/56 L Pulse Oximetry 98 96 Oxygen Delivery Method Room Air Room Air BMI result Body Mass Index 19.2 Labs 12/30/24 12:05 12/31/24 19:22 Labs: Laboratory Results - last 48 hr 12/30/24 12/30/24 12/31/24 11:48 12:05 19:22 WBC 6.2 RBC 4.48 Hgb 14.5 Hct 42.2 MCV 94.2 MCH 32.4 MCHC 34.4 RDW 11.9 Plt Count 293 MPV 9.5 Immature Gran % (Auto) 0.2 Neut % (Auto) 68.4 Lymph % (Auto) 24.4 [place] % (Auto) 5.9 Eos % (Auto) 0.5 Baso % (Auto) 0.6 Lymph # (Auto) 1.5 [place] # (Auto) 0.4 Eos # (Auto) 0.0 Baso # (Auto) 0.0 Abs Immat Gran (auto) 0.01 Absolute Neuts (auto) 4.3 Absolute Nucleated RBC 0.000 Nucleated RBC % (auto) 0.0 Sodium 140 138 Potassium 4.6 4.2 Chloride 106 104 Carbon Dioxide 29 26 Anion Gap 10 L 12 BUN 16 26 H Creatinine 0.76 0.74 Estim Creat Clear Calc 79.6 81.9 Estimated GFR > 60 > 60 Random Glucose 106 89 Calcium 9.4 9.6 Magnesium 2.2 Total Bilirubin 0.3 0.3 Direct Bilirubin 0.1 AST 20 11 ALT 21 20 Alkaline Phosphatase 57 49 Total Protein 7.6 7.0 Albumin 4.4 4.0 Triglycerides Cholesterol LDL Cholesterol, Calc HDL Cholesterol Beta HCG, Quant < 2 Urine Color Yellow Urine Appearance Cloudy Urine pH 6.0 Ur Specific [place] 1.025 Urine Protein Negative Urine Glucose (UA) Negative Urine Ketones Negative Urine Blood Negative Urine Nitrite Negative Ur Leukocyte Esterase Small (1+) H Urine RBC 0-2 Urine WBC 0-5 Ur Squamous Epith Cells >20 Urine Bacteria 2+ Hyaline Casts 0-2 Urine Test NEGATIVE Urine Opiates Screen Not Detected Ur Buprenorphine Scrn Not Detected Ur Oxycodone Screen Not Detected Urine Methadone Screen Not Detected Urine Fentanyl Screen Not Detected Ur Barbiturates Screen Not Detected Ur Phencyclidine Scrn Not Detected Ur Amphetamines Screen Not Detected U Benzodiazepines Scrn Not Detected Urine Cocaine Screen Not Detected U Marijuana (THC) Screen Not Detected Ethyl Alcohol 11 01/01/25 07:59 WBC RBC Hgb Hct MCV MCH MCHC RDW Plt Count MPV Immature Gran % (Auto) Neut % (Auto) Lymph % (Auto) [place] % (Auto) Eos % (Auto) Baso % (Auto) Lymph # (Auto) [place] # (Auto) Eos # (Auto) Baso # (Auto) Abs Immat Gran (auto) Absolute Neuts (auto) Absolute Nucleated RBC Nucleated RBC % (auto) Sodium Potassium Chloride Carbon Dioxide Anion Gap BUN Creatinine Estim Creat Clear Calc Estimated GFR Random Glucose Calcium Magnesium Total Bilirubin Direct Bilirubin AST ALT Alkaline Phosphatase Total Protein Albumin Triglycerides 78 Cholesterol 196 LDL Cholesterol, Calc 121 H HDL Cholesterol 60 Beta HCG, Quant Urine Color Urine Appearance Urine pH Ur Specific [place] Urine Protein Urine Glucose (UA) Urine Ketones Urine Blood Urine Nitrite Ur Leukocyte Esterase Urine RBC Urine WBC Ur Squamous Epith Cells Urine Bacteria Hyaline Casts Urine Test Urine Opiates Screen Ur Buprenorphine Scrn Ur Oxycodone Screen Urine Methadone Screen Urine Fentanyl Screen Ur Barbiturates Screen Ur Phencyclidine Scrn Ur Amphetamines Screen U Benzodiazepines Scrn Urine Cocaine Screen U Marijuana (THC) Screen Ethyl Alcohol Meds/Allergies Meds Home Medications ?Medication ?Instructions ?Recorded ?Confirmed ?Type escitalopram oxalate 20 mg tablet 40 mg PO DAILY 12/30/24 12/31/24 History lorazepam 0.5 mg tablet (Ativan) 0.5 mg PO QID PRN Anxiety 12/30/24 12/31/24 History mirtazapine 45 mg tablet 45 mg PO BEDTIME 12/30/24 12/30/24 History quetiapine 25 mg tablet 25 mg PO BEDTIME PRN Anxiety 12/30/24 12/30/24 History ascorbic acid (vitamin C) 500 mg 1,000 mg PO DAILY 01/01/25 01/01/25 History tablet multivitamin 1 tab PO DAILY 01/01/25 01/01/25 History omega-3 fatty acids 500 mg capsule 1,000 mg PO DAILY 01/01/25 01/01/25 History Allergies Allergies Allergy/AdvReac Type Severity Reaction Status Date / Time No Known Allergies Allergy Verified 12/30/24 11:36 Mental Status Exam Mental Status Exam Narrative: Pt is alert and oriented; behavior is cooperative, in anxious distress; dressed in casual attire and adequately groomed; mood is described as depressed; anxious and affect congruent, tearful; eye contact appropriate; Speech is normal rate, volume and prosody and not pressured; psychomotor retardation present; thought process is organized and goal directed; Thought content is on various worries, tx; continue passive wish; no HI; no avh There is no evidence of perceptual disturbance. Patients insight and judgment impaired. Assessment & Plan Assessment & Plan (1) Major depressive disorder, recurrent severe without psychotic features: Status: Acute Code(s): F33.2 - Major depressive disorder, recurrent severe without psychotic features (2) Acute anxiety: Status: Acute Code(s): F41.9 - Anxiety disorder, unspecified Plan Patient is a 39-year-old female, [employer] , with history of MDD, VENKAT, who presents for worsening and overwhelming anxiety and hopes to get ECT treatment. Patient reports depression and anxiety since teenage years. It has worsened significantly over the last year to the point where she has become debilitated; a constant stressor is her house in [place] remaining on the market, unsold; subsequently she has been living with her parents. Patient's depression has been significant and she endorses diminished interest, excessive guilt, low energy, poor concentration, having a force herself to shower... She was [facility] to start [facility] and patient had 1 session this Saturday however her anxiety and depression became so overwhelming these past few days to the point where she could not stop crying or pacing the solorzano that she felt unable to wait the full 30 days it takes for T MS to be effective; patient has consistent thoughts that life is not worth living; she says she will not actively take her own life but wishes she would just not wake up. Patient says I feel out of my mind... Patient called providers at the [facility] told her to come to the emergency room. Patient endorses history of trauma but does not disclose; says she has been diagnosed with VENKAT as well as depression. Denies history of any manic episodes or behaviors; no drug or alcohol abuse formulation/clinical reasoning: hx of depression, with limited treatment results, though with limited med trials (effexor, abilify/brexpiprazole- tremors; lexapro, mirtazpine). She is overwhelmed with anxiety and depression -dx of VENKAT? Presents for ECt -will taper off lexapro and mirtazpine as she's been on high doses of both for months with no results. -agrees to start Clomipramine and ECT; discussed lithium but she had some reservations PlAN: cv q15 start Clomipramine 25mg lower Lexapro to 20mg (has been on 40mg for few months) continue MIrtazapine 45mg (will taper) Zyrpexa prn for anxiety/agitation ECT for saturday NPO Patient educated on: diagnosis, medication risk/benefits and ECT Informed Consent: understands Reason for continued inpatient stay Substantial Risk for: inability to function Statement Statement: I have reviewed the history and physical and performed a pertinent examination on my patient. No changes have occurred unless specified. If the History and Physical was not performed prior to admission, the Hospitalist's service will be consulted for completing the admission physical. Time Spent With Patient Time: Total time managing care of this patient today ____ minutes.
[2025-01-01] MEDS: hydrOXYzine HCL 25 MG TABLET PO (11:44)
[2025-01-01] MEDS: OLANZapine 2.5 MG TABLET PO (13:52)
[2025-01-01] MEDS: Calcium Carbonate 750 MG TAB.CHEW PO (15:47)
[2025-01-01] MEDS: Ondansetron ODT 4 MG TAB.RAPDIS TRANSLINGU (17:17)
--- NOTE | 2025-01-01 19:50 | HO.ECT-CONS ---
History of Present Illness Data of Consult Service Date: 01/01/25 Primary Care Provider: None Physician [facility] Reason for consult: ECT Risk Stratification Pt is a 39-year-old female with a PMH of OCD and severe depression who was admitted to [facility] for increasing and depression and vague SI secondary to life stressors including unemployment and difficulty selling a house. Medical consult for ECT risk stratification. Pt seen and evaluated on unit where she is noted to be having a debilitating panic attack. Pt is extremely anxious, tearful, agitated, and difficult to redirect. After much coaxing and encouragement pt does agree to meet in the sensory room. Pt reports undergoing 1 session of transcranial magnetic stimulation with Dr. Cunningham in the past that pt did not find helpful. Denies undergoing any ECT sessions. Denies any PMH of cerebral hemorrhage or stroke, CAD, space-occupying intracranial lesion, seizure, or TBI.? No known history of bleeding disorders or otherwise unstable vascular aneurysms, severe pulmonary conditions, or past problems with anesthesia. Pt reports she feels incredibly anxious and fearful. States he has not slept in a long time and just wants to sleep and ?be with God?. Reports some difficulty breathing associated with anxiety. No chest pain/pressure or, palpitations. Denies nausea, vomiting, abdominal pain. EKG showing normal sinus rhythm with QTC WNL at 04:24 and without evidence of significant ST elevations or depressions. Review of Systems Review of Systems: Negative except for that which is stated in the HPI [facility], [facility] Medical History Major depressive disorder, recurrent severe without psychotic features History of OCD (obsessive compulsive disorder) Social History Household Members: Family Household Members Other:: 3 Housing: House Do you presently have visiting nurse or other home services: No Patient Tobacco Use Status: Never used Tobacco Smoked in Last 30 Days: No Patient Interested in Nicotine Replacement: No Patient Given Instructions on How to Stop Smoking: No Second Hand Smoke Exposure: No Use of substances other than those prescribed or required for medical reasons: No Substance Use Type: Caffiene Substance Use Type Other:: 2-4 cups decaf in morning Currently Displaying Signs/Symptoms of Drug Intoxication Withdrawal: No Any prior treatment program specific to substance use: No Have you been hit, kicked, punched, or otherwise hurt by someone within the past year? If so, by whom?: No Do you feel safe in your current relationship?: No Current Relationship Is there a partner from a previous relationship who is making you feel unsafe now?: No Are you made to feel afraid or neglected: No Spiritual Healthcare Practices: Spiritual Anabaptist Healthcare Practices: Denominational Advance Directives: No Advance Directives Information Provided: Yes Do you have thoughts of harming others: None Do you have a plan to hurt others: No Plan Recently lost weight without trying: No Eating poorly because of decreased appetite: No Nutrition Risks: No Nutritional Risk Patient : No : No Poor oral hygiene: No service: Yes ([employer]) Sexual orientation: Unable to collect Meds Allergies Allergy/AdvReac Type Severity Reaction Status Date / Time No Known Allergies Allergy Verified 12/30/24 11:36 Active Medications: Current Medications Acetaminophen (Acetaminophen 325 Mg Tablet) 650 mg PO Q6H PRN PRN Reason: Headache/Pain, Scale 1-10 Al Hydroxide/Mg Hydroxide (Magnesium Hydrox/Alum Hydrox 30 Ml Oral.Susp) 30 ml PO Q6H PRN PRN Reason: Heartburn/Nausea Ascorbic Acid (Ascorbic Acid 500 Mg Tablet) 1,000 mg PO DAILY [facility] Calcium Carbonate (Calcium Carbonate 750 Mg Tab.Chew) 750 mg PO Q6H PRN PRN Reason: Heartburn Last Admin: 01/01/25 15:47 Dose: 750 mg Escitalopram Oxalate (Escitalopram Oxalate 20 Mg Tablet) 20 mg PO DAILY [facility] Hydroxyzine HCl (Hydroxyzine Hcl 25 Mg Tablet) 25 mg PO Q6H PRN PRN Reason: mild anxiety Last Admin: 01/01/25 11:44 Dose: 25 mg Lorazepam (Lorazepam 0.5 Mg Tablet) 0.5 mg PO TID PRN PRN Reason: Anxiety Last Admin: 01/01/25 17:58 Dose: 0.5 mg Magnesium Hydroxide (Milk Of Magnesia 30 Ml Oral.Susp) 30 ml PO DAILY PRN PRN Reason: Constipation Mirtazapine (Mirtazapine 15 Mg Tablet) 45 mg PO BEDTIME BREA Last Admin: 12/31/24 20:15 Dose: 45 mg Multivitamins/Vitamin C (Multivitamin Tablet) 1 tab PO DAILY [facility] Nicotine Polacrilex (Nicotine Polacrilex 2 Mg Gum) 4 mg BUCCAL Q2H PRN PRN Reason: Nicotine Cravings Nortriptyline HCl (Nortriptyline Hcl 10 Mg Capsule) 10 mg PO BEDTIME BREA Olanzapine (Olanzapine 5 Mg Tablet) 5 mg PO TID PRN PRN Reason: moderate to severe agitation Ondansetron HCl (Ondansetron Odt 4 Mg Tab.Rapdis) 4 mg TRANSLINGU Q6H PRN PRN Reason: Nausea and Vomiting Last Admin: 01/01/25 17:17 Dose: 4 mg Quetiapine Fumarate (Quetiapine Fumarate 25 Mg Tablet) 25 mg PO BEDTIME PRN PRN Reason: Anxiety Last Admin: 12/31/24 20:16 Dose: 25 mg Trazodone HCl (Trazodone Hcl 50 Mg Tablet) 50 mg PO BEDTIME MRX1 PRN PRN Reason: Insomnia Last Admin: 12/31/24 20:15 Dose: 50 mg Home Medications ?Medication ?Instructions ?Recorded ?Confirmed ?Last Taken ?Type escitalopram oxalate 20 mg tablet 40 mg PO DAILY 12/30/24 12/31/24 Unknown History lorazepam 0.5 mg tablet (Ativan) 0.5 mg PO QID PRN Anxiety 12/30/24 12/31/24 Unknown History mirtazapine 45 mg tablet 45 mg PO BEDTIME 12/30/24 12/30/24 Unknown History quetiapine 25 mg tablet 25 mg PO BEDTIME PRN Anxiety 12/30/24 12/30/24 Unknown History ascorbic acid (vitamin C) 500 mg 1,000 mg PO DAILY 01/01/25 01/01/25 Unknown History tablet multivitamin 1 tab PO DAILY 01/01/25 01/01/25 Unknown History omega-3 fatty acids 500 mg capsule 1,000 mg PO DAILY 01/01/25 01/01/25 Unknown History Physical Exam Vital Signs and Narrative: Vital Signs: Last Vital Signs Temp 97.1 F 01/01/25 08:00 Pulse 62 01/01/25 08:00 Resp 16 01/01/25 08:00 BP 120/83 01/01/25 08:00 Pulse Ox 100 01/01/25 08:00 O2 Del Method Room Air 01/01/25 08:00 BMI result Body Mass Index 19.2 General: AOx3, tearful, anxious, crying out. Resp: CTA bilaterally CVS: S1, S2, RRR GI: +BS, NT, no distention Skin: Warm, dry Neuro: Cranial nerves II-XII grossly intact bilaterally. Motor grossly intact bilaterally Extremities: No edema Psych: Pt experiencing severe panic attack Results Labs 12/30/24 12:05 12/31/24 19:22 Labs: Laboratory Results - last 24 hr 12/31/24 01/01/25 19:22 07:59 Anion Gap 12 Estim Creat Clear Calc 81.9 Estimated GFR > 60 Random Glucose 89 Calcium 9.6 Total Bilirubin 0.3 AST 11 ALT 20 Alkaline Phosphatase 49 Total Protein 7.0 Albumin 4.0 Triglycerides 78 Cholesterol 196 LDL Cholesterol, Calc 121 H HDL Cholesterol 60 Assessment and Plan (1) Pre-op evaluation: Status: Acute Plan Pt is a 39-year-old female with a PMH of OCD and severe depression who was admitted to [facility] for increasing and depression and vague SI secondary to life stressors including unemployment and difficulty selling a house. Medical consult for ECT risk stratification. ECT risk stratification Pt without previous problems with anesthesia RCRI is 0 points, no further cardiac workup or treatment indicated at this time EKG showing QTc WNL, no evidence of ischemic changes Based on stated PMH, HPI, and physical exam, there are no apparent medical contraindications to the planned procedure Thank you for allowing us to participate in the care of this patient. Signing off at this time. Please re-consult if any acute complaints or issues arise.
[2025-01-01] MEDS: Mirtazapine 15 MG TABLET 45 MG PO (19:56)
[2025-01-01] MEDS: QUEtiapine Fumarate 25 MG TABLET PO (19:57)
[2025-01-01] MEDS: traZODone HCL 50 MG TABLET PO (19:57)
[2025-01-01] MEDS: Nortriptyline HCl 10 MG CAPSULE PO (19:57)
[2025-01-01 20:00] VITALS: PULSE 111; RESP 16; TEMP 37.4; O2SAT 94
[2025-01-01] MEDS: LORazepam 1 MG TABLET PO (20:26)
[2025-01-01] MEDS: clomiPRAMINE HCl 25 MG CAPSULE PO (21:09)
[2025-01-02] MEDS: LORazepam 0.5 MG TABLET PO (05:42)
[2025-01-02 07:35] VITALS: BP 96/55; PULSE 102; RESP 12; TEMP 37.4; O2SAT 95
[2025-01-02] MEDS: Ascorbic Acid 500 MG TABLET 1000 MG PO (08:37)
[2025-01-02] MEDS: OLANZapine 5 MG TABLET PO ×3 (08:37→20:27)
[2025-01-02] MEDS: Multivitamin TABLET 1 TAB PO (08:37)
[2025-01-02] MEDS: Escitalopram Oxalate 20 MG TABLET PO (08:37)
--- NOTE | 2025-01-02 10:19 | HO.PSYCHPN ---
Subjective Subjective Date of Service: 01/02/25 Reason For Visit: Crisis Interim History: Patient remains very anxious and despondent. She was reported to be shaking last night due to her anxiety. She remains depressed. She is aware she is scheduled for ECT. She had a hard time sleeping. Denies active SI. Told RN last night she wished she was with God. Review of Systems Review of Systems Negative except for that which is stated in the HPI Mental Status Exam Mental Status Exam Narrative: Pt is alert and oriented; behavior is cooperative, in anxious distress; dressed in casual attire and adequately groomed; mood is described as depressed; anxious and affect congruent, tearful; eye contact appropriate; Speech is normal rate, volume and prosody and not pressured; psychomotor retardation present; thought process is organized and goal directed; Thought content is on various worries, tx; continue passive wish; no HI; no avh There is no evidence of perceptual disturbance. Patients insight and judgment impaired. Diagnostics Vital Signs (24Hr): Vital Signs - 24 hr 01/01/25 20:00 01/02/25 07:35 Temperature 99.3 F 99.4 F Pulse Rate 111 H 102 H Respiratory Rate 16 12 Blood Pressure 96/55 L Pulse Oximetry 94 95 Oxygen Delivery Method Room Air Room Air BMI result Body Mass Index 19.2 Labs 12/30/24 12:05 12/31/24 19:22 Labs: Laboratory Results - last 48 hr 12/31/24 01/01/25 19:22 07:59 Sodium 138 Potassium 4.2 Chloride 104 Carbon Dioxide 26 Anion Gap 12 BUN 26 H Creatinine 0.74 Estim Creat Clear Calc 81.9 Estimated GFR > 60 Random Glucose 89 Calcium 9.6 Total Bilirubin 0.3 AST 11 ALT 20 Alkaline Phosphatase 49 Total Protein 7.0 Albumin 4.0 Triglycerides 78 Cholesterol 196 LDL Cholesterol, Calc 121 H HDL Cholesterol 60 Medications Medications Current Medications Acetaminophen (Acetaminophen 325 Mg Tablet) 650 mg PO Q6H PRN PRN Reason: Headache/Pain, Scale 1-10 Al Hydroxide/Mg Hydroxide (Magnesium Hydrox/Alum Hydrox 30 Ml Oral.Susp) 30 ml PO Q6H PRN PRN Reason: Heartburn/Nausea Ascorbic Acid (Ascorbic Acid 500 Mg Tablet) 1,000 mg PO DAILY BREA Last Admin: 01/02/25 08:37 Dose: 1,000 mg Calcium Carbonate (Calcium Carbonate 750 Mg Tab.Chew) 750 mg PO Q6H PRN PRN Reason: Heartburn Last Admin: 01/01/25 15:47 Dose: 750 mg Clomipramine HCl (Clomipramine Hcl 25 Mg Capsule) 25 mg PO BEDTIME BREA Last Admin: 01/01/25 21:09 Dose: 25 mg Escitalopram Oxalate (Escitalopram Oxalate 20 Mg Tablet) 20 mg PO DAILY [facility] Last Admin: 01/02/25 08:37 Dose: 20 mg Hydroxyzine HCl (Hydroxyzine Hcl 25 Mg Tablet) 25 mg PO Q6H PRN PRN Reason: mild anxiety Last Admin: 01/01/25 11:44 Dose: 25 mg Lorazepam (Lorazepam 0.5 Mg Tablet) 0.5 mg PO TID PRN PRN Reason: Anxiety Last Admin: 01/02/25 05:42 Dose: 0.5 mg Magnesium Hydroxide (Milk Of Magnesia 30 Ml Oral.Susp) 30 ml PO DAILY PRN PRN Reason: Constipation Mirtazapine (Mirtazapine 15 Mg Tablet) 45 mg PO BEDTIME [facility] Last Admin: 01/01/25 19:56 Dose: 45 mg Multivitamins/Vitamin C (Multivitamin Tablet) 1 tab PO DAILY [facility] Last Admin: 01/02/25 08:37 Dose: 1 tab Nicotine Polacrilex (Nicotine Polacrilex 2 Mg Gum) 4 mg BUCCAL Q2H PRN PRN Reason: Nicotine Cravings Olanzapine (Olanzapine 5 Mg Tablet) 5 mg PO TID PRN PRN Reason: moderate to severe agitation Last Admin: 01/02/25 08:37 Dose: 5 mg Ondansetron HCl (Ondansetron Odt 4 Mg Tab.Rapdis) 4 mg TRANSLINGU Q6H PRN PRN Reason: Nausea and Vomiting Last Admin: 01/01/25 17:17 Dose: 4 mg Quetiapine Fumarate (Quetiapine Fumarate 25 Mg Tablet) 25 mg PO BEDTIME PRN PRN Reason: Anxiety Last Admin: 01/01/25 19:57 Dose: 25 mg Trazodone HCl (Trazodone Hcl 50 Mg Tablet) 50 mg PO BEDTIME MRX1 PRN PRN Reason: Insomnia Last Admin: 01/01/25 19:57 Dose: 50 mg Allergies Allergies Allergy/AdvReac Type Severity Reaction Status Date / Time No Known Allergies Allergy Verified 12/30/24 11:36 Assessment & Plan Assessment & Plan (1) Major depressive disorder, recurrent severe without psychotic features: Status: Acute Code(s): F33.2 - Major depressive disorder, recurrent severe without psychotic features (2) Acute anxiety: Status: Acute Code(s): F41.9 - Anxiety disorder, unspecified Plan Plan Patient is a 39-year-old female, [employer] , with history of MDD, VENKAT, who presents for worsening and overwhelming anxiety and hopes to get ECT treatment. Patient reports depression and anxiety since teenage years. It has worsened significantly over the last year to the point where she has become debilitated; a constant stressor is her house in [place] remaining on the market, unsold; subsequently she has been living with her parents. Patient's depression has been significant and she endorses diminished interest, excessive guilt, low energy, poor concentration, having a force herself to shower... She was sent from the [facility] to start [facility] and patient had 1 session this Saturday however her anxiety and depression became so overwhelming these past few days to the point where she could not stop crying or pacing the solorzano that she felt unable to wait the full 30 days it takes for T MS to be effective; patient has consistent thoughts that life is not worth living; she says she will not actively take her own life but wishes she would just not wake up. Patient says I feel out of my mind... Patient called providers at the [facility] told her to come to the emergency room. Patient endorses history of trauma but does not disclose; says she has been diagnosed with VENKAT as well as depression. Denies history of any manic episodes or behaviors; no drug or alcohol abuse formulation/clinical reasoning: hx of depression, with limited treatment results, though with limited med trials (effexor, abilify/brexpiprazole- tremors; lexapro, mirtazpine). She is overwhelmed with anxiety and depression -dx of VENKAT? Presents for ECT -will taper off lexapro and mirtazpine as she's been on high doses of both for months with no results. -agrees to start Clomipramine and ECT; discussed lithium but she had some reservations PlAN: cv q15 start Clomipramine 25mg lower Lexapro to 20mg (has been on 40mg for few months) continue MIrtazapine 45mg (will taper) Zyrpexa prn for anxiety/agitation ECT for saturday NPO 01/02: Increase Seroquel to 50 mg HS. Continue current management and treatment plan. ECT Saturday Reason for continued inpatient stay Substantial Risk for: harm to self, inability to function and rapid decompensation Time Spent With Patient Time: Total time managing care of this patient today ____ minutes.
[2025-01-02] MEDS: Ondansetron ODT 4 MG TAB.RAPDIS TRANSLINGU (11:44)
[2025-01-02 20:00] VITALS: BP 115/58; PULSE 108; RESP 16; TEMP 38.8; O2SAT 96
[2025-01-02] MEDS: Acetaminophen 325 MG TABLET 650 MG PO (20:25)
[2025-01-02] MEDS: clomiPRAMINE HCl 25 MG CAPSULE PO (20:26)
[2025-01-02] MEDS: Mirtazapine 15 MG TABLET 45 MG PO (20:27)
[2025-01-02] MEDS: QUEtiapine Fumarate 50 MG TABLET PO (20:40)
[2025-01-02 23:03] VITALS: TEMP 36.6
[2025-01-03] MEDS: Multivitamin TABLET 1 TAB PO (07:57)
[2025-01-03] MEDS: Ascorbic Acid 500 MG TABLET 1000 MG PO (07:58)
[2025-01-03] MEDS: Escitalopram Oxalate 20 MG TABLET PO (07:58)
[2025-01-03] MEDS: Acetaminophen 325 MG TABLET 650 MG PO (07:58)
[2025-01-03] MEDS: Ondansetron ODT 4 MG TAB.RAPDIS TRANSLINGU (07:58)
[2025-01-03] MEDS: OLANZapine 5 MG TABLET PO ×3 (07:58→20:00)
[2025-01-03 08:00] VITALS: BP 112/64; PULSE 100; RESP 18; TEMP 36.7; O2SAT 98
[2025-01-03] MEDS: LORazepam 0.5 MG TABLET PO (10:24)
[2025-01-03] MEDS: LORazepam 1 MG TABLET PO ×2 (10:47→19:59)
--- NOTE | 2025-01-03 11:09 | P.PNPSI_ITS ---
Subjective Subjective Date of Service: 01/03/25 Reason For Visit: Crisis Interim History: Patient remains very anxious and ruminative. She says she feels poorly because others are able to utilize unit interactions and groups and she feels overwhelmed. She was labile and tearful. Patient reported being on Ativan 1 mg TID when home. Slept better. Denies active SI. Review of Systems Review of Systems Negative except for that which is stated in the [facility] Mental Status Exam Mental Status Exam Narrative: Pt is alert and oriented; behavior is cooperative, in anxious distress; dressed in casual attire and adequately groomed; mood is described as depressed; anxious and affect congruent, tearful; eye contact appropriate; Speech is normal rate, volume and prosody and not pressured; psychomotor retardation present; thought process is organized and goal directed; Thought content is on various worries, tx; continue passive wish; no HI; no avh There is no evidence of perceptual disturbance. Patients insight and judgment impaired. Diagnostics Vital Signs (24Hr): Vital Signs - 24 hr 01/02/25 20:00 01/02/25 23:03 01/03/25 08:00 Temperature 101.8 F H 97.9 F 98.1 F Pulse Rate 108 H 100 Respiratory Rate 16 18 Blood Pressure 115/58 L 112/64 Pulse Oximetry 96 98 Oxygen Delivery Method Room Air Room Air BMI result Body Mass Index 19.2 Labs 12/30/24 12:05 12/31/24 19:22 Medications Medications Current Medications Acetaminophen (Acetaminophen 325 Mg Tablet) 650 mg PO Q6H PRN PRN Reason: Headache/Pain, Scale 1-10 Last Admin: 01/03/25 07:58 Dose: 650 mg Al Hydroxide/Mg Hydroxide (Magnesium Hydrox/Alum Hydrox 30 Ml Oral.Susp) 30 ml PO Q6H PRN PRN Reason: Heartburn/Nausea Ascorbic Acid (Ascorbic Acid 500 Mg Tablet) 1,000 mg PO DAILY BREA Last Admin: 01/03/25 07:58 Dose: 1,000 mg Calcium Carbonate (Calcium Carbonate 750 Mg Tab.Chew) 750 mg PO Q6H PRN PRN Reason: Heartburn Last Admin: 01/01/25 15:47 Dose: 750 mg Clomipramine HCl (Clomipramine Hcl 25 Mg Capsule) 25 mg PO BEDTIME BREA Last Admin: 01/02/25 20:26 Dose: 25 mg Escitalopram Oxalate (Escitalopram Oxalate 20 Mg Tablet) 20 mg PO DAILY [facility] Last Admin: 01/03/25 07:58 Dose: 20 mg Hydroxyzine HCl (Hydroxyzine Hcl 25 Mg Tablet) 25 mg PO Q6H PRN PRN Reason: mild anxiety Last Admin: 01/01/25 11:44 Dose: 25 mg Lorazepam (Lorazepam 1 Mg Tablet) 1 mg PO TID PRN PRN Reason: Anxiety Last Admin: 01/03/25 10:47 Dose: 1 mg Magnesium Hydroxide (Milk Of Magnesia 30 Ml Oral.Susp) 30 ml PO DAILY PRN PRN Reason: Constipation Mirtazapine (Mirtazapine 15 Mg Tablet) 45 mg PO BEDTIME [facility] Last Admin: 01/02/25 20:27 Dose: 45 mg Multivitamins/Vitamin C (Multivitamin Tablet) 1 tab PO DAILY [facility] Last Admin: 01/03/25 07:57 Dose: 1 tab Nicotine Polacrilex (Nicotine Polacrilex 2 Mg Gum) 4 mg BUCCAL Q2H PRN PRN Reason: Nicotine Cravings Olanzapine (Olanzapine 5 Mg Tablet) 5 mg PO TID [facility] Last Admin: 01/03/25 07:58 Dose: 5 mg Ondansetron HCl (Ondansetron Odt 4 Mg Tab.Rapdis) 4 mg TRANSLINGU Q6H PRN PRN Reason: Nausea and Vomiting Last Admin: 01/03/25 07:58 Dose: 4 mg Quetiapine Fumarate (Quetiapine Fumarate 50 Mg Tablet) 50 mg PO BEDTIME PRN PRN Reason: Anxiety Last Admin: 01/02/25 20:40 Dose: 50 mg Trazodone HCl (Trazodone Hcl 50 Mg Tablet) 50 mg PO BEDTIME MRX1 PRN PRN Reason: Insomnia Last Admin: 01/01/25 19:57 Dose: 50 mg Allergies Allergies Allergy/AdvReac Type Severity Reaction Status Date / Time No Known Allergies Allergy Verified 12/30/24 11:36 Assessment & Plan Assessment & Plan (1) Major depressive disorder, recurrent severe without psychotic features: Status: Acute Code(s): F33.2 - Major depressive disorder, recurrent severe without psychotic features (2) Acute anxiety: Status: Acute Code(s): F41.9 - Anxiety disorder, unspecified Plan Plan Patient is a 39-year-old female, [employer] , with history of MDD, VENKAT, who presents for worsening and overwhelming anxiety and hopes to get ECT treatment. Patient reports depression and anxiety since teenage years. It has worsened significantly over the last year to the point where she has become debilitated; a constant stressor is her house in [place] remaining on the market, unsold; subsequently she has been living with her parents. Patient's depression has been significant and she endorses diminished interest, excessive guilt, low energy, poor concentration, having a force herself to shower... She was sent from the [facility] to start T[place] and patient had 1 session this Saturday however her anxiety and depression became so overwhelming these past few days to the point where she could not stop crying or pacing the solorzano that she felt unable to wait the full 30 days it takes for T MS to be effective; patient has consistent thoughts that life is not worth living; she says she will not actively take her own life but wishes she would just not wake up. Patient says I feel out of my mind... Patient called providers at the [facility] told her to come to the emergency room. Patient endorses history of trauma but does not disclose; says she has been diagnosed with VENKAT as well as depression. Denies history of any manic episodes or behaviors; no drug or alcohol abuse formulation/clinical reasoning: hx of depression, with limited treatment results, though with limited med trials (effexor, abilify/brexpiprazole- tremors; lexapro, mirtazpine). She is overwhelmed with anxiety and depression -dx of VENKAT? Presents for ECT -will taper off lexapro and mirtazpine as she's been on high doses of both for months with no results. -agrees to start Clomipramine and ECT; discussed lithium but she had some reservations PlAN: cv q15 start Clomipramine 25mg lower Lexapro to 20mg (has been on 40mg for few months) continue MIrtazapine 45mg (will taper) Zyrpexa prn for anxiety/agitation ECT for saturday NPO 01/02: Increase Seroquel to 50 mg HS. Continue current management and treatment plan. ECT Wednesday 01/03: Increase Ativan to 1 mg TID. Hold after 8 PM on nights prior to ECT. Reason for continued inpatient stay Substantial Risk for: inability to function, rapid decompensation and med/psych decompensation Time Spent With Patient Time: Total time managing care of this patient today ____ minutes.
[2025-01-03 20:00] VITALS: BP 102/81; PULSE 87; RESP 16; TEMP 37.2; O2SAT 97
[2025-01-03] MEDS: Mirtazapine 15 MG TABLET 45 MG PO (20:00)
[2025-01-03] MEDS: QUEtiapine Fumarate 50 MG TABLET PO (20:00)
[2025-01-03] MEDS: clomiPRAMINE HCl 25 MG CAPSULE PO (20:00)
[2025-01-04] VITALS (8 sets, daily range): BP systolic 114–133; BP diastolic 65–94; PULSE 85–112; RESP 15–22; TEMP 36.2–37.5; O2SAT 96–100
--- NOTE | 2025-01-04 09:00 | ECG_ITS ---
Test Reason : qtc Blood Pressure : */* mmHG Vent. Rate : 72 BPM Atrial Rate : 72 BPM P-R Int : 140 ms QRS Dur : 70 ms QT Int : 384 ms P-R-T Axes : 82 91 66 degrees QTcB Int : 420 ms Normal sinus rhythm Rightward axis Borderline ECG When compared with ECG of 31-Dec-2024 14:04, No significant change was found Referred By: Kane Bonilla Electronically Signed By: ROSCOE MELCHOR
--- NOTE | 2025-01-04 13:52 | MHC.SHP ---
Pre-Procedural Eval Section A - 24 Hr Update-Section A only Date of Service: 01/04/25 The patient is an INPATIENT: Yes Changes since office visit: No Cold of Flu in the past 2 weeks, No New Medical Problems, No Changes in Medication and No Patient answered all questions The patient has been examined within 24 hours of the surgical procedure. The History & Physical has been completed within 30 days and I have reviewed it.: Yes Section B - Complete if H&P > 30 days Chief Complaint: Crisis Details of Present Illness: hx of depression admitted to do ECT Relevant Family History (Specify if Yes): No Relevant Social History: None Present Medications: see Short Stay Collaborative assessment Medical History: No relevant PMH History of Previous Operations: No relevant previous surgery Allergies: Allergies Allergy/AdvReac Type Severity Reaction Status Date / Time No Known Allergies Allergy Verified 12/30/24 11:36 Review of Systems Sugical H&P ROS: Negative: Constitution, Cardiovascular, Respiratory, Neurological, Psychiatric, Hem-Onc, Allergic/Immunologic, Gastrointestinal, Genitourinary, Musculoskeletal, Integumentary, Endocrine and Eyes/Ears/Nose/Throat Exam Surgical H&P Exam: Normal: HEENT, Normal: Heart, Normal: Lungs, Normal: Extremities, Normal: Abdomen, Normal: Skin and Normal: Neurological Plan Diagnosis/Plan: Unchanged I have reviewed the history and physical and performed a pertinent physical examination on my patient. No changes have occurred unless specified. Time Spent With Patient Time: Total time managing care of this patient today __20__ minutes.
--- NOTE | 2025-01-04 14:31 | P.CONAN_ITS ---
[facility] Active Problems Active Problems: All Active Problems Pre-op evaluation (Acute) Major depressive disorder, recurrent severe without psychotic features (Acute) Acute anxiety (Acute) Past Medical History Medical History Major depressive disorder, recurrent severe without psychotic features History of OCD (obsessive compulsive disorder) Surgical History History of Problems with Anesthesia: No Social History Social History Household Members: Family Household Members Other:: 3 Housing: House Do you presently have visiting nurse or other home services: No Patient Tobacco Use Status: Never used Tobacco Smoked in Last 30 Days: No Patient Interested in Nicotine Replacement: No Patient Given Instructions on How to Stop Smoking: No Second Hand Smoke Exposure: No Use of substances other than those prescribed or required for medical reasons: No Substance Use Type: Caffiene Substance Use Type Other:: 2-4 cups decaf in morning Currently Displaying Signs/Symptoms of Drug Intoxication Withdrawal: No Any prior treatment program specific to substance use: No Have you been hit, kicked, punched, or otherwise hurt by someone within the past year? If so, by whom?: No Do you feel safe in your current relationship?: No Current Relationship Is there a partner from a previous relationship who is making you feel unsafe now?: No Are you made to feel afraid or neglected: No Spiritual Healthcare Practices: Spiritual [facility] Practices: Religious Advance Directives: No Advance Directives Information Provided: Yes Do you have thoughts of harming others: None Do you have a plan to hurt others: No Plan Recently lost weight without trying: No Eating poorly because of decreased appetite: No Nutrition Risks: No Nutritional Risk Patient : No : No Poor oral hygiene: No service: Yes (Anteryon) Sexual orientation: Unable to collect Meds Allergies Allergy/AdvReac Type Severity Reaction Status Date / Time No Known Allergies Allergy Verified 12/30/24 11:36 Active Medications: Current Medications Acetaminophen (Acetaminophen 325 Mg Tablet) 650 mg PO Q6H PRN PRN Reason: Headache/Pain, Scale 1-10 Last Admin: 01/03/25 07:58 Dose: 650 mg Al Hydroxide/Mg Hydroxide (Magnesium Hydrox/Alum Hydrox 30 Ml Oral.Susp) 30 ml PO Q6H PRN PRN Reason: Heartburn/Nausea Ascorbic Acid (Ascorbic Acid 500 Mg Tablet) 1,000 mg PO DAILY [facility] Last Admin: 01/04/25 09:55 Dose: Not Given Calcium Carbonate (Calcium Carbonate 750 Mg Tab.Chew) 750 mg PO Q6H PRN PRN Reason: Heartburn Last Admin: 01/01/25 15:47 Dose: 750 mg Clomipramine HCl (Clomipramine Hcl 25 Mg Capsule) 25 mg PO BEDTIME [facility] Last Admin: 01/03/25 20:00 Dose: 25 mg Escitalopram Oxalate (Escitalopram Oxalate 20 Mg Tablet) 20 mg PO DAILY [facility] Last Admin: 01/04/25 09:55 Dose: Not Given Hydroxyzine HCl (Hydroxyzine Hcl 25 Mg Tablet) 25 mg PO Q6H PRN PRN Reason: mild anxiety Last Admin: 01/01/25 11:44 Dose: 25 mg Lorazepam (Lorazepam 1 Mg Tablet) 1 mg PO TID PRN PRN Reason: Anxiety Last Admin: 01/03/25 19:59 Dose: 1 mg Magnesium Hydroxide (Milk Of Magnesia 30 Ml Oral.Susp) 30 ml PO DAILY PRN PRN Reason: Constipation Mirtazapine (Mirtazapine 15 Mg Tablet) 45 mg PO BEDTIME [facility] Last Admin: 01/03/25 20:00 Dose: 45 mg Multivitamins/Vitamin C (Multivitamin Tablet) 1 tab PO DAILY [facility] Last Admin: 01/04/25 09:56 Dose: Not Given Nicotine Polacrilex (Nicotine Polacrilex 2 Mg Gum) 4 mg BUCCAL Q2H PRN PRN Reason: Nicotine Cravings Olanzapine (Olanzapine 5 Mg Tablet) 5 mg PO TID [facility] Last Admin: 01/04/25 09:56 Dose: Not Given Ondansetron HCl (Ondansetron Odt 4 Mg Tab.Rapdis) 4 mg TRANSLINGU Q6H PRN PRN Reason: Nausea and Vomiting Last Admin: 01/03/25 07:58 Dose: 4 mg Quetiapine Fumarate (Quetiapine Fumarate 50 Mg Tablet) 50 mg PO BEDTIME PRN PRN Reason: Anxiety Last Admin: 01/03/25 20:00 Dose: 50 mg Trazodone HCl (Trazodone Hcl 50 Mg Tablet) 50 mg PO BEDTIME MRX1 PRN PRN Reason: Insomnia Last Admin: 01/01/25 19:57 Dose: 50 mg Home Medications ?Medication ?Instructions ?Recorded ?Confirmed ?Last Taken ?Type escitalopram oxalate 20 mg tablet 40 mg PO DAILY 12/30/24 12/31/24 Unknown History lorazepam 0.5 mg tablet (Ativan) 0.5 mg PO QID PRN Anxiety 12/30/24 12/31/24 Unknown History mirtazapine 45 mg tablet 45 mg PO BEDTIME 12/30/24 12/30/24 Unknown History quetiapine 25 mg tablet 25 mg PO BEDTIME PRN Anxiety 12/30/24 12/30/24 Unknown History ascorbic acid (vitamin C) 500 mg 1,000 mg PO DAILY 01/01/25 01/01/25 Unknown History tablet multivitamin 1 tab PO DAILY 01/01/25 01/01/25 Unknown History omega-3 fatty acids 500 mg capsule 1,000 mg PO DAILY 01/01/25 01/01/25 Unknown History Exam Height,Weight and Vital Signs: Height 5 ft 4 in Weight 50.802 kg Last Vital Signs Temp 97.5 F 01/04/25 13:17 Pulse 86 01/04/25 13:17 Resp 20 01/04/25 13:17 BP 133/83 01/04/25 13:17 Pulse Ox 100 01/04/25 13:17 O2 Del Method Room Air 01/04/25 13:17 Pertinent Lab Results Pertinent Lab Results: Laboratory Tests 12/30/24 12/30/24 12/31/24 11:48 12:05 19:22 WBC 6.2 RBC 4.48 Hgb 14.5 Hct 42.2 MCV 94.2 MCH 32.4 MCHC 34.4 RDW 11.9 Plt Count 293 MPV 9.5 Immature Gran % (Auto) 0.2 Neut % (Auto) 68.4 Lymph % (Auto) 24.4 Swain % (Auto) 5.9 Eos % (Auto) 0.5 Baso % (Auto) 0.6 Lymph # (Auto) 1.5 Swain # (Auto) 0.4 Eos # (Auto) 0.0 Baso # (Auto) 0.0 Abs Immat Gran (auto) 0.01 Absolute Neuts (auto) 4.3 Absolute Nucleated RBC 0.000 Nucleated RBC % (auto) 0.0 Sodium 140 138 Potassium 4.6 4.2 Chloride 106 104 Carbon Dioxide 29 26 Anion Gap 10 L 12 BUN 16 26 H Creatinine 0.76 0.74 Estim Creat Clear Calc 79.6 81.9 Estimated GFR > 60 > 60 Random Glucose 106 89 Calcium 9.4 9.6 Magnesium 2.2 Total Bilirubin 0.3 0.3 Direct Bilirubin 0.1 AST 20 11 ALT 21 20 Alkaline Phosphatase 57 49 Total Protein 7.6 7.0 Albumin 4.4 4.0 Triglycerides Cholesterol LDL Cholesterol, Calc HDL Cholesterol Beta HCG, Quant < 2 Urine Color Yellow Urine Appearance Cloudy Urine pH 6.0 Ur Specific Mcgrath 1.025 Urine Protein Negative Urine Glucose (UA) Negative Urine Ketones Negative Urine Blood Negative Urine Nitrite Negative Ur Leukocyte Esterase Small (1+) H Urine RBC 0-2 Urine WBC 0-5 Ur Squamous Epith Cells >20 Urine Bacteria 2+ Hyaline Casts 0-2 Urine Test NEGATIVE Urine Opiates Screen Not Detected Ur Buprenorphine Scrn Not Detected Ur Oxycodone Screen Not Detected Urine Methadone Screen Not Detected Urine Fentanyl Screen Not Detected Ur Barbiturates Screen Not Detected Ur Phencyclidine Scrn Not Detected Ur Amphetamines Screen Not Detected U Benzodiazepines Scrn Not Detected Urine Cocaine Screen Not Detected U Marijuana (THC) Screen Not Detected Ethyl Alcohol 11 01/01/25 07:59 WBC RBC Hgb Hct MCV MCH MCHC RDW Plt Count MPV Immature Gran % (Auto) Neut % (Auto) Lymph % (Auto) Swain % (Auto) Eos % (Auto) Baso % (Auto) Lymph # (Auto) Swain # (Auto) Eos # (Auto) Baso # (Auto) Abs Immat Gran (auto) Absolute Neuts (auto) Absolute Nucleated RBC Nucleated RBC % (auto) Sodium Potassium Chloride Carbon Dioxide Anion Gap BUN Creatinine Estim Creat Clear Calc Estimated GFR Random Glucose Calcium Magnesium Total Bilirubin Direct Bilirubin AST ALT Alkaline Phosphatase Total Protein Albumin Triglycerides 78 Cholesterol 196 LDL Cholesterol, Calc 121 H HDL Cholesterol 60 Beta HCG, Quant Urine Color Urine Appearance Urine pH Ur Specific Mcgrath Urine Protein Urine Glucose (UA) Urine Ketones Urine Blood Urine Nitrite Ur Leukocyte Esterase Urine RBC Urine WBC Ur Squamous Epith Cells Urine Bacteria Hyaline Casts Urine Test Urine Opiates Screen Ur Buprenorphine Scrn Ur Oxycodone Screen Urine Methadone Screen Urine Fentanyl Screen Ur Barbiturates Screen Ur Phencyclidine Scrn Ur Amphetamines Screen U Benzodiazepines Scrn Urine Cocaine Screen U Marijuana (THC) Screen Ethyl Alcohol Airway Mallampati Class: II TM Dist: >3cm Neck ROM: Full Loose/Missing/Broken Teeth: No Heart: RRR Lungs: CTA Assessment and Plan Assessment Anesthesia Assessment: Anesthesia Plan Discussed and Chart Reviewed Final Anesthetic Review History of Problems with Anesthesia: No NPO: Yes ASA Class: II Final Preanesthetic Review: Meds/Allgs Chart Reviewed, Consent Obtained/Reviewed and Anes Risks/Benef Reviewed Patient Risk: Low Procedure Risk: Intermediate Anesthetic Plan Anesthetic Plan: GA Disposition: Standard PACU
--- NOTE | 2025-01-04 14:49 | HO.ECTPROC ---
ECT Procedure Note Diagnosis/Treatment Date of Service: 01/04/25 Diagnosis: Major Depressive Disorder Current Treatment Number: 1 Treatment: Series Interval Clinical Notes: Patient recently admitted due to severe depression and anxiety. She was able to give informed consent to ECT questions answered. The patient was treated right unilateral 0.25 program stimulated 100% had a seizure of 35 seconds. Patient tearful prior to procedure tolerate the procedure well was somewhat sedated for an extended period and in discussing with anesthesia thought was to lowered etomidate to 10 mg lower succinylcholine to 70 mg she was given Versed 2 mg post suggestion was to decrease to 1 mg next treatment consideration could also be given to propofol post Patient is quite ruminating 1 might consider higher doses of quetiapine or consideration of olanzapine for agitated depression Time: Total time managing care of this patient today _35___ minutes. ECT Settings Device: THYMATRON DGx Electrode Placement: Right Unilateral Program/Pulse Width: 0.25 Energy Percent: 100 Seizure Duration By EEG (in seconds): 35 Medications Administration General Anesthetic: Etomidate (12) Muscle Relaxant: Succinylcholine (80) Airway Management Airway Management: Bag Mask Ventilation Treatment Recommendations Notes: Recommend decreased etomidate and succinylcholine doses Pt Tolerated Procedure w/o Issue: Yes
[2025-01-04] MEDS: LORazepam 1 MG TABLET PO ×2 (16:26→21:46)
[2025-01-04] MEDS: OLANZapine 5 MG TABLET PO ×2 (16:26→19:58)
[2025-01-04] MEDS: Ascorbic Acid 500 MG TABLET 1000 MG PO (16:27)
[2025-01-04] MEDS: Multivitamin TABLET 1 TAB PO ×2 (16:27)
[2025-01-04] MEDS: Escitalopram Oxalate 20 MG TABLET PO ×2 (16:28)
[2025-01-04] MEDS: Acetaminophen 325 MG TABLET 650 MG PO (16:45)
--- NOTE | 2025-01-04 16:46 | P.PNPSI_ITS ---
Subjective Subjective Date of Service: 01/04/25 Reason For Visit: Crisis Interim History: seen shortly after ECT, c/o BOLANSO, anxiety, memory difficulties. reassured memory function will return and that both that and BOLANOS are normal post-ECT reactions. no other complaints or requests at the moment. per staff, dep/anx high. taking meds. labile, tearful. ativan 1 TID. +SI. Mental Status Exam Mental Status Exam Narrative: Pt is alert and oriented; behavior is cooperative, in anxious distress; dressed in neeta and disheveled; mood is described as anxious and affect congruent, tearful; eye contact appropriate; Speech is normal rate, loudness and prosody and not pressured; psychomotor retardation present; thought process is organized and goal directed; Thought content is on various worries, tx; no SI/HI/AVH expressed. Patients insight and judgment impaired. Diagnostics Vital Signs (24Hr): Vital Signs - 24 hr 01/03/25 20:00 01/04/25 09:11 01/04/25 13:17 Temperature 99.0 F 97.1 F 97.5 F Pulse Rate 87 99 86 Respiratory Rate 16 16 20 Blood Pressure 102/81 114/65 133/83 Pulse Oximetry 97 98 100 Oxygen Delivery Method Room Air Room Air Room Air 01/04/25 15:00 01/04/25 15:05 01/04/25 15:10 Temperature 99.5 F Pulse Rate 85 94 94 Respiratory Rate 22 H 20 20 Blood Pressure 133/91 H 128/74 114/68 Pulse Oximetry 99 96 97 Oxygen Delivery Method Room Air Room Air Room Air 01/04/25 15:15 01/04/25 15:29 Temperature 99.4 F Pulse Rate 112 H 96 Respiratory Rate 18 20 Blood Pressure 120/94 H 122/89 Pulse Oximetry 97 99 Oxygen Delivery Method Room Air Room Air BMI result Body Mass Index 19.2 Labs 12/30/24 12:05 12/31/24 19:22 Medications Medications Current Medications Acetaminophen (Acetaminophen 325 Mg Tablet) 650 mg PO Q6H PRN PRN Reason: Headache/Pain, Scale 1-10 Last Admin: 01/03/25 07:58 Dose: 650 mg Al Hydroxide/Mg Hydroxide (Magnesium Hydrox/Alum Hydrox 30 Ml Oral.Susp) 30 ml PO Q6H PRN PRN Reason: Heartburn/Nausea Ascorbic Acid (Ascorbic Acid 500 Mg Tablet) 1,000 mg PO DAILY [facility] Last Admin: 01/04/25 16:27 Dose: 1,000 mg Calcium Carbonate (Calcium Carbonate 750 Mg Tab.Chew) 750 mg PO Q6H PRN PRN Reason: Heartburn Last Admin: 01/01/25 15:47 Dose: 750 mg Clomipramine HCl (Clomipramine Hcl 25 Mg Capsule) 25 mg PO BEDTIME [facility] Last Admin: 01/03/25 20:00 Dose: 25 mg Escitalopram Oxalate (Escitalopram Oxalate 20 Mg Tablet) 20 mg PO DAILY [facility] Last Admin: 01/04/25 16:28 Dose: 20 mg Hydroxyzine HCl (Hydroxyzine Hcl 25 Mg Tablet) 25 mg PO Q6H PRN PRN Reason: mild anxiety Last Admin: 01/01/25 11:44 Dose: 25 mg Lorazepam (Lorazepam 1 Mg Tablet) 1 mg PO TID PRN PRN Reason: Anxiety Last Admin: 01/04/25 16:26 Dose: 1 mg Magnesium Hydroxide (Milk Of Magnesia 30 Ml Oral.Susp) 30 ml PO DAILY PRN PRN Reason: Constipation Mirtazapine (Mirtazapine 15 Mg Tablet) 45 mg PO BEDTIME [facility] Last Admin: 01/03/25 20:00 Dose: 45 mg Multivitamins/Vitamin C (Multivitamin Tablet) 1 tab PO DAILY [facility] Last Admin: 01/04/25 16:27 Dose: 1 tab Nicotine Polacrilex (Nicotine Polacrilex 2 Mg Gum) 4 mg BUCCAL Q2H PRN PRN Reason: Nicotine Cravings Olanzapine (Olanzapine 5 Mg Tablet) 5 mg PO TID [facility] Last Admin: 01/04/25 16:26 Dose: 5 mg Ondansetron HCl (Ondansetron Odt 4 Mg Tab.Rapdis) 4 mg TRANSLINGU Q6H PRN PRN Reason: Nausea and Vomiting Last Admin: 01/03/25 07:58 Dose: 4 mg Quetiapine Fumarate (Quetiapine Fumarate 50 Mg Tablet) 50 mg PO BEDTIME PRN PRN Reason: Anxiety Last Admin: 01/03/25 20:00 Dose: 50 mg Trazodone HCl (Trazodone Hcl 50 Mg Tablet) 50 mg PO BEDTIME MRX1 PRN PRN Reason: Insomnia Last Admin: 01/01/25 19:57 Dose: 50 mg Allergies Allergies Allergy/AdvReac Type Severity Reaction Status Date / Time No Known Allergies Allergy Verified 12/30/24 11:36 Assessment & Plan Assessment & Plan (1) Major depressive disorder, recurrent severe without psychotic features: Status: Acute Code(s): F33.2 - Major depressive disorder, recurrent severe without psychotic features (2) Acute anxiety: Status: Acute Code(s): F41.9 - Anxiety disorder, unspecified Plan Plan Patient is a 39-year-old female, [employer] , with history of MDD, VENKAT, who presents for worsening and overwhelming anxiety and hopes to get ECT treatment. Patient reports depression and anxiety since teenage years. It has worsened significantly over the last year to the point where she has become debilitated; a constant stressor is her house in [place] remaining on the market, unsold; subsequently she has been living with her parents. Patient's depression has been significant and she endorses diminished interest, excessive guilt, low energy, poor concentration, having a force herself to shower... [place] and patient had 1 session this Saturday however her anxiety and depression became so overwhelming these past few days to the point where she could not stop crying or pacing the solorzano that she felt unable to wait the full 30 days it takes for T MS to be effective; patient has consistent thoughts that life is not worth living; she says she will not actively take her own life but wishes she would just not wake up. Patient says I feel out of my mind... Patient called providers at the [place] told her to come to the emergency room. Patient endorses history of trauma but does not disclose; says she has been diagnosed with VENKAT as well as depression. Denies history of any manic episodes or behaviors; no drug or alcohol abuse formulation/clinical reasoning: hx of depression, with limited treatment results, though with limited med trials (effexor, abilify/brexpiprazole- tremors; lexapro, mirtazpine). She is overwhelmed with anxiety and depression -dx of VENKAT? Presents for ECT -will taper off lexapro and mirtazpine as she's been on high doses of both for months with no results. -agrees to start Clomipramine and ECT; discussed lithium but she had some reservations PlAN: cv q15 start Clomipramine 25mg lower Lexapro to 20mg (has been on 40mg for few months) continue MIrtazapine 45mg (will taper) Zyrpexa prn for anxiety/agitation ECT for saturday NPO 01/02: Increase Seroquel to 50 mg HS. Continue current management and treatment plan. ECT Wednesday 01/03: Increase Ativan to 1 mg TID. Hold after 8 PM on nights prior to ECT. 01/04: ECT #1 completed. BOLANOS, memory impairment immediately after. anxious. continue current mgmt. Reason for continued inpatient stay Substantial Risk for: harm to self and inability to function Time Spent With Patient Time: Total time managing care of this patient today __25__ minutes.
[2025-01-04] MEDS: Mirtazapine 15 MG TABLET 45 MG PO (19:59)
[2025-01-04] MEDS: QUEtiapine Fumarate 50 MG TABLET PO (20:00)
[2025-01-04] MEDS: clomiPRAMINE HCl 25 MG CAPSULE PO (20:00)
[2025-01-04] MEDS: Ondansetron ODT 4 MG TAB.RAPDIS TRANSLINGU (20:02)
[2025-01-05 07:50] VITALS: BP 78/47; PULSE 88; RESP 16; TEMP 37.3; O2SAT 96
[2025-01-05] MEDS: Ascorbic Acid 500 MG TABLET 1000 MG PO (08:53)
[2025-01-05] MEDS: Escitalopram Oxalate 20 MG TABLET PO (08:54)
[2025-01-05] MEDS: Multivitamin TABLET 1 TAB PO (08:54)
[2025-01-05] MEDS: OLANZapine 5 MG TABLET PO ×3 (08:54→20:06)
[2025-01-05] MEDS: LORazepam 1 MG TABLET PO (11:55)
--- NOTE | 2025-01-05 16:19 | P.PNPSI_ITS ---
Subjective Subjective Date of Service: 01/05/25 Reason For Visit: Crisis Interim History: calm, cooperative, pleasant. agreeable to increase clomipramine to 50 QHS and decrease lexapro to 15 daily. some BOLANOS and cognitive impairment after ECT yesterday, otherwise no complaints. per staff, high anxiety. depression. slept 7 hours. Mental Status Exam Mental Status Exam Narrative: Pt is alert and oriented; behavior is cooperative, calm; dressed adequately, adequately groomed; mood is described as anxious and depressed and affect congruent; eye contact appropriate; Speech is normal rate, loudness and prosody and not pressured; psychomotor retardation present; thought process is organized and goal directed; Thought content is on various worries, tx; no SI/HI/AVH expressed. Patients insight and judgment impaired. Diagnostics Vital Signs (24Hr): Vital Signs - 24 hr 01/04/25 20:00 01/05/25 07:50 Temperature 97.7 F 99.2 F Pulse Rate 93 88 Respiratory Rate 15 16 Blood Pressure 119/74 78/47 L Pulse Oximetry 97 96 Oxygen Delivery Method Room Air Room Air BMI result Body Mass Index 19.2 Labs 12/30/24 12:05 12/31/24 19:22 Medications Medications Current Medications Acetaminophen (Acetaminophen 325 Mg Tablet) 650 mg PO Q6H PRN PRN Reason: Headache/Pain, Scale 1-10 Last Admin: 01/04/25 16:45 Dose: 650 mg Al Hydroxide/Mg Hydroxide (Magnesium Hydrox/Alum Hydrox 30 Ml Oral.Susp) 30 ml PO Q6H PRN PRN Reason: Heartburn/Nausea Ascorbic Acid (Ascorbic Acid 500 Mg Tablet) 1,000 mg PO DAILY [facility] Last Admin: 01/05/25 08:53 Dose: 1,000 mg Calcium Carbonate (Calcium Carbonate 750 Mg Tab.Chew) 750 mg PO Q6H PRN PRN Reason: Heartburn Last Admin: 01/01/25 15:47 Dose: 750 mg Clomipramine HCl (Clomipramine Hcl 25 Mg Capsule) 50 mg PO BEDTIME [facility] Escitalopram Oxalate (Escitalopram Oxalate 5 Mg Tablet) 15 mg PO DAILY [facility] Hydroxyzine HCl (Hydroxyzine Hcl 25 Mg Tablet) 25 mg PO Q6H PRN PRN Reason: mild anxiety Last Admin: 01/01/25 11:44 Dose: 25 mg Lorazepam (Lorazepam 1 Mg Tablet) 1 mg PO TID PRN PRN Reason: Anxiety Last Admin: 01/05/25 11:55 Dose: 1 mg Magnesium Hydroxide (Milk Of Magnesia 30 Ml Oral.Susp) 30 ml PO DAILY PRN PRN Reason: Constipation Mirtazapine (Mirtazapine 15 Mg Tablet) 45 mg PO BEDTIME [facility] Last Admin: 01/04/25 19:59 Dose: 45 mg Multivitamins/Vitamin C (Multivitamin Tablet) 1 tab PO DAILY [facility] Last Admin: 01/05/25 08:54 Dose: 1 tab Nicotine Polacrilex (Nicotine Polacrilex 2 Mg Gum) 4 mg BUCCAL Q2H PRN PRN Reason: Nicotine Cravings Olanzapine (Olanzapine 5 Mg Tablet) 5 mg PO TID [facility] Last Admin: 01/05/25 15:16 Dose: 5 mg Ondansetron HCl (Ondansetron Odt 4 Mg Tab.Rapdis) 4 mg TRANSLINGU Q6H PRN PRN Reason: Nausea and Vomiting Last Admin: 01/04/25 20:02 Dose: 4 mg Quetiapine Fumarate (Quetiapine Fumarate 50 Mg Tablet) 50 mg PO BEDTIME PRN PRN Reason: Anxiety Last Admin: 01/04/25 20:00 Dose: 50 mg Trazodone HCl (Trazodone Hcl 50 Mg Tablet) 50 mg PO BEDTIME MRX1 PRN PRN Reason: Insomnia Last Admin: 01/01/25 19:57 Dose: 50 mg Allergies Allergies Allergy/AdvReac Type Severity Reaction Status Date / Time No Known Allergies Allergy Verified 12/30/24 11:36 Assessment & Plan Assessment & Plan (1) Major depressive disorder, recurrent severe without psychotic features: Status: Acute Code(s): F33.2 - Major depressive disorder, recurrent severe without psychotic features (2) Acute anxiety: Status: Acute Code(s): F41.9 - Anxiety disorder, unspecified Plan Plan Patient is a 39-year-old female, [employer] , with history of MDD, VENKAT, who presents for worsening and overwhelming anxiety and hopes to get ECT treatment. Patient reports depression and anxiety since teenage years. It has worsened significantly over the last year to the point where she has become debilitated; a constant stressor is her house in [place] remaining on the market, unsold; subsequently she has been living with her parents. Patient's depression has been significant and she endorses diminished interest, excessive guilt, low energy, poor concentration, having a force herself to shower... She was sent from the [place] to start TMS and patient had 1 session this Saturday however her anxiety and depression became so overwhelming these past few days to the point where she could not stop crying or pacing the solorzano that she felt unable to wait the full 30 days it takes for T MS to be effective; patient has consistent thoughts that life is not worth living; she says she will not actively take her own life but wishes she would just not wake up. Patient says I feel out of my mind... Patient called providers at the [place] told her to come to the emergency room. Patient endorses history of trauma but does not disclose; says she has been diagnosed with VENKAT as well as depression. Denies history of any manic episodes or behaviors; no drug or alcohol abuse formulation/clinical reasoning: hx of depression, with limited treatment results, though with limited med trials (effexor, abilify/brexpiprazole- tremors; lexapro, mirtazpine). She is overwhelmed with anxiety and depression -dx of VENKAT? Presents for ECT -will taper off lexapro and mirtazpine as she's been on high doses of both for months with no results. -agrees to start Clomipramine and ECT; discussed lithium but she had some reservations PlAN: cv q15 start Clomipramine 25mg lower Lexapro to 20mg (has been on 40mg for few months) continue MIrtazapine 45mg (will taper) Zyrpexa prn for anxiety/agitation ECT for saturday NPO 01/02: Increase Seroquel to 50 mg HS. Continue current management and treatment plan. ECT Wednesday 01/03: Increase Ativan to 1 mg TID. Hold after 8 PM on nights prior to ECT. 01/04: ECT #1 completed. BOLANOS, memory impairment immediately after. anxious. continue current mgmt. 01/05: calm, cooperative. incr anafranil to 50 mg QHS, decrease lexapro to 15 mg daily. ECT tomorrow, NPO p MN. Reason for continued inpatient stay Substantial Risk for: harm to self and inability to function Time Spent With Patient Time: Total time managing care of this patient today __25__ minutes.
[2025-01-05 20:00] VITALS: BP 100/58; PULSE 99; RESP 16; TEMP 36.6; O2SAT 98
[2025-01-05] MEDS: Mirtazapine 15 MG TABLET 45 MG PO (20:05)
[2025-01-05] MEDS: QUEtiapine Fumarate 50 MG TABLET PO (20:06)
[2025-01-05] MEDS: clomiPRAMINE HCl 25 MG CAPSULE 50 MG PO (20:07)
[2025-01-06] VITALS (10 sets, daily range): BP systolic 94–128; BP diastolic 60–85; PULSE 82–103; RESP 14–22; TEMP 36.4–36.8; O2SAT 95–99
--- NOTE | 2025-01-06 06:53 | P.CONAN_ITS ---
[facility] Active Problems Active Problems: All Active Problems Pre-op evaluation (Acute) Major depressive disorder, recurrent severe without psychotic features (Acute) Acute anxiety (Acute) Past Medical History Medical History Major depressive disorder, recurrent severe without psychotic features History of OCD (obsessive compulsive disorder) Family History Family history of problems with anesthesia: No Surgical History History of Problems with Anesthesia: No Social History Social History Household Members: Family Household Members Other:: 3 Housing: House Do you presently have visiting nurse or other home services: No Patient Tobacco Use Status: Never used Tobacco Smoked in Last 30 Days: No Patient Interested in Nicotine Replacement: No Patient Given Instructions on How to Stop Smoking: No Second Hand Smoke Exposure: No Use of substances other than those prescribed or required for medical reasons: No Substance Use Type: Caffiene Substance Use Type Other:: 2-4 cups decaf in morning Currently Displaying Signs/Symptoms of Drug Intoxication Withdrawal: No Any prior treatment program specific to substance use: No Have you been hit, kicked, punched, or otherwise hurt by someone within the past year? If so, by whom?: No Do you feel safe in your current relationship?: No Current Relationship Is there a partner from a previous relationship who is making you feel unsafe now?: No Are you made to feel afraid or neglected: No Spiritual Healthcare Practices: Spiritual [employer] Healthcare Practices: Gnosticist Advance Directives: No Advance Directives Information Provided: Yes Do you have thoughts of harming others: None Do you have a plan to hurt others: No Plan Recently lost weight without trying: No Eating poorly because of decreased appetite: No Nutrition Risks: No Nutritional Risk Patient : No : No Poor oral hygiene: No service: Yes ([employer]) Sexual orientation: Unable to collect Meds Allergies Allergy/AdvReac Type Severity Reaction Status Date / Time No Known Allergies Allergy Verified 12/30/24 11:36 Active Medications: Current Medications Acetaminophen (Acetaminophen 325 Mg Tablet) 650 mg PO Q6H PRN PRN Reason: Headache/Pain, Scale 1-10 Last Admin: 01/04/25 16:45 Dose: 650 mg Al Hydroxide/Mg Hydroxide (Magnesium Hydrox/Alum Hydrox 30 Ml Oral.Susp) 30 ml PO Q6H PRN PRN Reason: Heartburn/Nausea Ascorbic Acid (Ascorbic Acid 500 Mg Tablet) 1,000 mg PO DAILY [facility] Last Admin: 01/05/25 08:53 Dose: 1,000 mg Calcium Carbonate (Calcium Carbonate 750 Mg Tab.Chew) 750 mg PO Q6H PRN PRN Reason: Heartburn Last Admin: 01/01/25 15:47 Dose: 750 mg Clomipramine HCl (Clomipramine Hcl 25 Mg Capsule) 50 mg PO BEDTIME [facility] Last Admin: 01/05/25 20:07 Dose: 50 mg Escitalopram Oxalate (Escitalopram Oxalate 5 Mg Tablet) 15 mg PO DAILY [facility] Hydroxyzine HCl (Hydroxyzine Hcl 25 Mg Tablet) 25 mg PO Q6H PRN PRN Reason: mild anxiety Last Admin: 01/01/25 11:44 Dose: 25 mg Lactated Ringer's (Lr) 1,000 mls @ 50 mls/hr IVCONT .Q20H [facility] Lorazepam (Lorazepam 1 Mg Tablet) 1 mg PO TID PRN PRN Reason: Anxiety Last Admin: 01/05/25 11:55 Dose: 1 mg Magnesium Hydroxide (Milk Of Magnesia 30 Ml Oral.Susp) 30 ml PO DAILY PRN PRN Reason: Constipation Mirtazapine (Mirtazapine 15 Mg Tablet) 45 mg PO BEDTIME [facility] Last Admin: 01/05/25 20:05 Dose: 45 mg Multivitamins/Vitamin C (Multivitamin Tablet) 1 tab PO DAILY [facility] Last Admin: 01/05/25 08:54 Dose: 1 tab Naloxone HCl (Naloxone Hcl 0.4 Mg/Ml Vial) 0.04 mg IVPUSH Q5M PRN PRN Reason: Excessive sedation or RR < 8 Nicotine Polacrilex (Nicotine Polacrilex 2 Mg Gum) 4 mg BUCCAL Q2H PRN PRN Reason: Nicotine Cravings Olanzapine (Olanzapine 5 Mg Tablet) 5 mg PO TID [facility] Last Admin: 01/05/25 20:06 Dose: 5 mg Ondansetron HCl (Ondansetron Odt 4 Mg Tab.Rapdis) 4 mg TRANSLINGU Q6H PRN PRN Reason: Nausea and Vomiting Last Admin: 01/04/25 20:02 Dose: 4 mg Quetiapine Fumarate (Quetiapine Fumarate 50 Mg Tablet) 50 mg PO BEDTIME PRN PRN Reason: Anxiety Last Admin: 01/05/25 20:06 Dose: 50 mg Trazodone HCl (Trazodone Hcl 50 Mg Tablet) 50 mg PO BEDTIME MRX1 PRN PRN Reason: Insomnia Last Admin: 01/01/25 19:57 Dose: 50 mg Home Medications ?Medication ?Instructions ?Recorded ?Confirmed ?Last Taken ?Type escitalopram oxalate 20 mg tablet 40 mg PO DAILY 12/30/24 12/31/24 Unknown History lorazepam 0.5 mg tablet (Ativan) 0.5 mg PO QID PRN Anxiety 12/30/24 12/31/24 Unknown History mirtazapine 45 mg tablet 45 mg PO BEDTIME 12/30/24 12/30/24 Unknown History quetiapine 25 mg tablet 25 mg PO BEDTIME PRN Anxiety 12/30/24 12/30/24 Unknown History ascorbic acid (vitamin C) 500 mg 1,000 mg PO DAILY 01/01/25 01/01/25 Unknown History tablet multivitamin 1 tab PO DAILY 01/01/25 01/01/25 Unknown History omega-3 fatty acids 500 mg capsule 1,000 mg PO DAILY 01/01/25 01/01/25 Unknown History Exam Height,Weight and Vital Signs: Height 5 ft 4 in Weight 50.802 kg Last Vital Signs Temp 97.5 F 01/06/25 06:29 Pulse 91 01/06/25 06:29 Resp 16 01/06/25 06:29 BP 115/71 01/06/25 06:29 Pulse Ox 99 01/06/25 06:29 O2 Del Method Room Air 01/06/25 06:29 Pertinent Lab Results Pertinent Lab Results: Laboratory Tests 12/30/24 12/30/24 12/31/24 11:48 12:05 19:22 WBC 6.2 RBC 4.48 Hgb 14.5 Hct 42.2 MCV 94.2 MCH 32.4 MCHC 34.4 RDW 11.9 Plt Count 293 MPV 9.5 Immature Gran % (Auto) 0.2 Neut % (Auto) 68.4 Lymph % (Auto) 24.4 [place] % (Auto) 5.9 Eos % (Auto) 0.5 Baso % (Auto) 0.6 Lymph # (Auto) 1.5 [place] # (Auto) 0.4 Eos # (Auto) 0.0 Baso # (Auto) 0.0 Abs Immat Gran (auto) 0.01 Absolute Neuts (auto) 4.3 Absolute Nucleated RBC 0.000 Nucleated RBC % (auto) 0.0 Sodium 140 138 Potassium 4.6 4.2 Chloride 106 104 Carbon Dioxide 29 26 Anion Gap 10 L 12 BUN 16 26 H Creatinine 0.76 0.74 Estim Creat Clear Calc 79.6 81.9 Estimated GFR > 60 > 60 Random Glucose 106 89 Calcium 9.4 9.6 Magnesium 2.2 Total Bilirubin 0.3 0.3 Direct Bilirubin 0.1 AST 20 11 ALT 21 20 Alkaline Phosphatase 57 49 Total Protein 7.6 7.0 Albumin 4.4 4.0 Triglycerides Cholesterol LDL Cholesterol, Calc HDL Cholesterol Beta HCG, Quant < 2 Urine Color Yellow Urine Appearance Cloudy Urine pH 6.0 Ur Specific [place] 1.025 Urine Protein Negative Urine Glucose (UA) Negative Urine Ketones Negative Urine Blood Negative Urine Nitrite Negative Ur Leukocyte Esterase Small (1+) H Urine RBC 0-2 Urine WBC 0-5 Ur Squamous Epith Cells >20 Urine Bacteria 2+ Hyaline Casts 0-2 Urine Test NEGATIVE Urine Opiates Screen Not Detected Ur Buprenorphine Scrn Not Detected Ur Oxycodone Screen Not Detected Urine Methadone Screen Not Detected Urine Fentanyl Screen Not Detected Ur Barbiturates Screen Not Detected Ur Phencyclidine Scrn Not Detected Ur Amphetamines Screen Not Detected U Benzodiazepines Scrn Not Detected Urine Cocaine Screen Not Detected U Marijuana (THC) Screen Not Detected Ethyl Alcohol 11 01/01/25 07:59 WBC RBC Hgb Hct MCV MCH MCHC RDW Plt Count MPV Immature Gran % (Auto) Neut % (Auto) Lymph % (Auto) [place] % (Auto) Eos % (Auto) Baso % (Auto) Lymph # (Auto) [place] # (Auto) Eos # (Auto) Baso # (Auto) Abs Immat Gran (auto) Absolute Neuts (auto) Absolute Nucleated RBC Nucleated RBC % (auto) Sodium Potassium Chloride Carbon Dioxide Anion Gap BUN Creatinine Estim Creat Clear Calc Estimated GFR Random Glucose Calcium Magnesium Total Bilirubin Direct Bilirubin AST ALT Alkaline Phosphatase Total Protein Albumin Triglycerides 78 Cholesterol 196 LDL Cholesterol, Calc 121 H HDL Cholesterol 60 Beta HCG, Quant Urine Color Urine Appearance Urine pH Ur Specific [place] Urine Protein Urine Glucose (UA) Urine Ketones Urine Blood Urine Nitrite Ur Leukocyte Esterase Urine RBC Urine WBC Ur Squamous Epith Cells Urine Bacteria Hyaline Casts Urine Test Urine Opiates Screen Ur Buprenorphine Scrn Ur Oxycodone Screen Urine Methadone Screen Urine Fentanyl Screen Ur Barbiturates Screen Ur Phencyclidine Scrn Ur Amphetamines Screen U Benzodiazepines Scrn Urine Cocaine Screen U Marijuana (THC) Screen Ethyl Alcohol Airway Mallampati Class: II TM Dist: >3cm Neck ROM: Full Heart: rrr Lungs: cta Assessment and Plan Assessment Anesthesia Assessment: Anesthesia Plan Discussed and Chart Reviewed Final Anesthetic Review Family History of Problems with Anesthesia: No History of Problems with Anesthesia: No NPO: Yes ASA Class: III Final Preanesthetic Review: No Changes in Pt Med Stat, Meds/Allgs Chart Reviewed and Consent Obtained/Reviewed Patient Risk: Intermediate Procedure Risk: Intermediate Anesthetic Plan Anesthetic Plan: GA Disposition: Standard PACU
--- NOTE | 2025-01-06 07:03 | MHC.SHP ---
Pre-Procedural Eval Section A - 24 Hr Update-Section A only Date of Service: 01/06/25 The patient is an INPATIENT: Yes Changes since office visit: No Cold of Flu in the past 2 weeks, No New Medical Problems, No Changes in Medication and No Patient answered all questions The patient has been examined within 24 hours of the surgical procedure. The History & Physical has been completed within 30 days and I have reviewed it.: Yes Section B - Complete if H&P > 30 days Chief Complaint: Crisis Allergies: Allergies Allergy/AdvReac Type Severity Reaction Status Date / Time No Known Allergies Allergy Verified 12/30/24 11:36 Plan I have reviewed the history and physical and performed a pertinent physical examination on my patient. No changes have occurred unless specified. Time Spent With Patient Time: Total time managing care of this patient today ____ minutes.
--- NOTE | 2025-01-06 07:14 | HO.ECTPROC ---
ECT Procedure Note Diagnosis/Treatment Date of Service: 01/06/25 Diagnosis: Major Depressive Disorder Previous ECT Date: 01/04/25 Current Treatment Number: 2 Treatment: Series Interval Clinical Notes: The patient was less anxious, not tearful at all today. She denies side effects with the first ECT, she was oversedated and now she is on a lower dose of Etomidate and Succinylcholine. Versed after ECT was lowered to [address] E[address] done as per previous treatment, no complications, woke up well. Time: Total time managing care of this patient today _30___ minutes. ECT Settings Device: THYMATRON DGx Electrode Placement: Right Unilateral Program/Pulse Width: 0.25 Energy Percent: 100 Seizure Duration By EEG (in seconds): 32 By Motor Observation (in seconds): 21 Medications Administration General Anesthetic: Etomidate (10) Muscle Relaxant: Succinylcholine (70) Ancillary Medications Anti-emetics: Zofran - Pre ECT Miscillaneous Medications: Midazolam (1 mg after ECT) Airway Management Airway Management: Bag Mask Ventilation Treatment Recommendations No Changes Recommended: No change Pt Tolerated Procedure w/o Issue: Yes
[2025-01-06] MEDS: Multivitamin TABLET 1 TAB PO (08:30)
[2025-01-06] MEDS: OLANZapine 5 MG TABLET PO ×3 (08:30→20:08)
[2025-01-06] MEDS: Escitalopram Oxalate 5 MG TABLET 15 MG PO (08:30)
[2025-01-06] MEDS: Ascorbic Acid 500 MG TABLET 1000 MG PO (08:31)
[2025-01-06] MEDS: Acetaminophen 325 MG TABLET 650 MG PO ×2 (11:24→19:09)
--- NOTE | 2025-01-06 16:01 | HO.PSYCHPN ---
Subjective Subjective Date of Service: 01/06/25 Reason For Visit: Crisis Interim History: no change from yesterday. tolerated ECT well. brief relief after finding out her house has an offer on it, now worried about getting a full-time job, states right now she is only working part-time. no BOLANOS today, memory fxn appears to be improved. per staff, bid on her house so less anxious. slept well. completed ECT this morning without incident. Mental Status Exam Mental Status Exam Narrative: Pt is alert and oriented; behavior is cooperative, calm; dressed adequately, adequately groomed; mood is described as anxious and depressed and affect congruent; eye contact appropriate; Speech is normal rate, loudness and prosody and not pressured; psychomotor retardation present; thought process is organized and goal directed; Thought content is on various worries, tx; no SI/HI/AVH expressed. Patients insight and judgment impaired. Diagnostics Vital Signs (24Hr): Vital Signs - 24 hr 01/05/25 20:00 01/06/25 05:48 01/06/25 06:29 Temperature 97.8 F 97.6 F 97.5 F Pulse Rate 99 99 91 Respiratory Rate 16 16 16 Blood Pressure 100/58 L 94/60 115/71 Pulse Oximetry 98 97 99 Oxygen Delivery Method Room Air Room Air Oxygen Flow Rate 01/06/25 07:20 01/06/25 07:25 01/06/25 07:30 Temperature 97.7 F Pulse Rate 89 82 87 Respiratory Rate 16 20 20 Blood Pressure 128/85 121/81 108/66 Pulse Oximetry 99 99 99 Oxygen Delivery Method Nasal Cannula with ETCO2 Nasal Cannula with ETCO2 Nasal Cannula with ETCO2 Oxygen Flow Rate 2 2 2 01/06/25 07:35 01/06/25 07:50 01/06/25 08:06 Temperature 97.8 F Pulse Rate 93 93 103 H Respiratory Rate 21 H 22 H 18 Blood Pressure 111/64 116/64 115/69 Pulse Oximetry 99 95 97 Oxygen Delivery Method Room Air Room Air Room Air Oxygen Flow Rate 01/06/25 08:26 01/06/25 08:26 Temperature 97.7 F 97.7 F Pulse Rate 96 96 Respiratory Rate 14 14 Blood Pressure 102/60 102/60 Pulse Oximetry 99 99 Oxygen Delivery Method Room Air Oxygen Flow Rate BMI result Body Mass Index 19.2 Labs 12/30/24 12:05 12/31/24 19:22 Medications Medications Current Medications Acetaminophen (Acetaminophen 325 Mg Tablet) 650 mg PO Q6H PRN PRN Reason: Headache/Pain, Scale 1-10 Last Admin: 01/06/25 11:24 Dose: 650 mg Al Hydroxide/Mg Hydroxide (Magnesium Hydrox/Alum Hydrox 30 Ml Oral.Susp) 30 ml PO Q6H PRN PRN Reason: Heartburn/Nausea Ascorbic Acid (Ascorbic Acid 500 Mg Tablet) 1,000 mg PO DAILY [facility] Last Admin: 01/06/25 08:31 Dose: 1,000 mg Calcium Carbonate (Calcium Carbonate 750 Mg Tab.Chew) 750 mg PO Q6H PRN PRN Reason: Heartburn Last Admin: 01/01/25 15:47 Dose: 750 mg Clomipramine HCl (Clomipramine Hcl 25 Mg Capsule) 50 mg PO BEDTIME [facility] Last Admin: 01/05/25 20:07 Dose: 50 mg Escitalopram Oxalate (Escitalopram Oxalate 5 Mg Tablet) 15 mg PO DAILY [facility] Last Admin: 01/06/25 08:30 Dose: 15 mg Hydroxyzine HCl (Hydroxyzine Hcl 25 Mg Tablet) 25 mg PO Q6H PRN PRN Reason: mild anxiety Last Admin: 01/01/25 11:44 Dose: 25 mg Lorazepam (Lorazepam 1 Mg Tablet) 1 mg PO TID PRN PRN Reason: Anxiety Last Admin: 01/05/25 11:55 Dose: 1 mg Magnesium Hydroxide (Milk Of Magnesia 30 Ml Oral.Susp) 30 ml PO DAILY PRN PRN Reason: Constipation Mirtazapine (Mirtazapine 15 Mg Tablet) 45 mg PO BEDTIME [facility] Last Admin: 01/05/25 20:05 Dose: 45 mg Multivitamins/Vitamin C (Multivitamin Tablet) 1 tab PO DAILY [facility] Last Admin: 01/06/25 08:30 Dose: 1 tab Nicotine Polacrilex (Nicotine Polacrilex 2 Mg Gum) 4 mg BUCCAL Q2H PRN PRN Reason: Nicotine Cravings Olanzapine (Olanzapine 5 Mg Tablet) 5 mg PO TID [facility] Last Admin: 01/06/25 14:38 Dose: 5 mg Ondansetron HCl (Ondansetron Odt 4 Mg Tab.Rapdis) 4 mg TRANSLINGU Q6H PRN PRN Reason: Nausea and Vomiting Last Admin: 01/04/25 20:02 Dose: 4 mg Quetiapine Fumarate (Quetiapine Fumarate 50 Mg Tablet) 50 mg PO BEDTIME PRN PRN Reason: Anxiety Last Admin: 01/05/25 20:06 Dose: 50 mg Trazodone HCl (Trazodone Hcl 50 Mg Tablet) 50 mg PO BEDTIME MRX1 PRN PRN Reason: Insomnia Last Admin: 01/01/25 19:57 Dose: 50 mg Allergies Allergies Allergy/AdvReac Type Severity Reaction Status Date / Time No Known Allergies Allergy Verified 12/30/24 11:36 Assessment & Plan Assessment & Plan (1) Major depressive disorder, recurrent severe without psychotic features: Status: Acute Code(s): F33.2 - Major depressive disorder, recurrent severe without psychotic features (2) Acute anxiety: Status: Acute Code(s): F41.9 - Anxiety disorder, unspecified Plan Plan Patient is a 39-year-old female, [employer] , with history of MDD, VENKAT, who presents for worsening and overwhelming anxiety and hopes to get ECT treatment. Patient reports depression and anxiety since teenage years. It has worsened significantly over the last year to the point where she has become debilitated; a constant stressor is her house in [place] remaining on the market, unsold; subsequently she has been living with her parents. Patient's depression has been significant and she endorses diminished interest, excessive guilt, low energy, poor concentration, having a force herself to shower... She was sent from the [place] to start TMS and patient had 1 session this Saturday however her anxiety and depression became so overwhelming these past few days to the point where she could not stop crying or pacing the solorzano that she felt unable to wait the full 30 days it takes for T MS to be effective; patient has consistent thoughts that life is not worth living; she says she will not actively take her own life but wishes she would just not wake up. Patient says I feel out of my mind... Patient called providers at the [place] told her to come to the emergency room. Patient endorses history of trauma but does not disclose; says she has been diagnosed with VENKAT as well as depression. Denies history of any manic episodes or behaviors; no drug or alcohol abuse formulation/clinical reasoning: hx of depression, with limited treatment results, though with limited med trials (effexor, abilify/brexpiprazole- tremors; lexapro, mirtazpine). She is overwhelmed with anxiety and depression -dx of VENKAT? Presents for ECT -will taper off lexapro and mirtazpine as she's been on high doses of both for months with no results. -agrees to start Clomipramine and ECT; discussed lithium but she had some reservations PlAN: cv q15 start Clomipramine 25mg lower Lexapro to 20mg (has been on 40mg for few months) continue MIrtazapine 45mg (will taper) Zyrpexa prn for anxiety/agitation ECT for saturday NPO 01/02: Increase Seroquel to 50 mg HS. Continue current management and treatment plan. ECT Wednesday 01/03: Increase Ativan to 1 mg TID. Hold after 8 PM on nights prior to ECT. 01/04: ECT #1 completed. BOLANOS, memory impairment immediately after. anxious. continue current mgmt. 01/05: calm, cooperative. incr anafranil to 50 mg QHS, decrease lexapro to 15 mg daily. ECT tomorrow, NPO p [place]. 01/06: completed ECT #2 without incident. no s/e from medications, reduced s/e from ECT. continue current mgmt. Reason for continued inpatient stay Substantial Risk for: harm to self and inability to function Time Spent With Patient Time: Total time managing care of this patient today _25___ minutes.
[2025-01-06] MEDS: Calcium Carbonate 750 MG TAB.CHEW PO (18:09)
[2025-01-06] MEDS: Mirtazapine 15 MG TABLET 45 MG PO (20:06)
[2025-01-06] MEDS: clomiPRAMINE HCl 25 MG CAPSULE 50 MG PO (20:07)
[2025-01-06] MEDS: QUEtiapine Fumarate 50 MG TABLET PO (23:45)
[2025-01-06] MEDS: traZODone HCL 50 MG TABLET PO (23:46)
[2025-01-07 07:00] VITALS: BMI 18.2
[2025-01-07 07:59] VITALS: BP 97/85; PULSE 122; RESP 16; TEMP 36.4; O2SAT 98
[2025-01-07] MEDS: Ascorbic Acid 500 MG TABLET 1000 MG PO (08:43)
[2025-01-07] MEDS: Escitalopram Oxalate 5 MG TABLET 15 MG PO (08:43)
[2025-01-07] MEDS: OLANZapine 5 MG TABLET PO ×3 (08:43→19:54)
[2025-01-07] MEDS: Multivitamin TABLET 1 TAB PO (08:44)
[2025-01-07] MEDS: hydrOXYzine HCL 25 MG TABLET PO (10:24)
[2025-01-07] MEDS: Acetaminophen 325 MG TABLET 650 MG PO ×2 (11:34→17:42)
--- NOTE | 2025-01-07 14:32 | HO.PSYCHPN ---
Subjective Subjective Date of Service: 01/07/25 Reason For Visit: Crisis Interim History: calm, cooperative, dour. anxious re FMLA paperwork and getting a FT job. agreeable to increase anafranil and decrease lexapro. ECT in the morning. per staff, slept 8 hours, no notable events or behaviors otherwise. Mental Status Exam Mental Status Exam Narrative: Pt is alert and oriented; behavior is cooperative, calm; dressed adequately, adequately groomed; mood is described as anxious and affect congruent; eye contact appropriate; Speech is normal rate, loudness and prosody and not pressured; psychomotor retardation present; thought process is organized and goal directed; Thought content is on various worries, tx; no SI/HI/AVH expressed. Patients insight and judgment impaired. Diagnostics Vital Signs (24Hr): Vital Signs - 24 hr 01/06/25 20:00 01/07/25 07:59 Temperature 98.3 F 97.5 F Pulse Rate 88 122 H Respiratory Rate 16 16 Blood Pressure 98/60 97/85 Pulse Oximetry 99 98 Oxygen Delivery Method Room Air Room Air BMI result Body Mass Index 18.2 Labs 12/30/24 12:05 12/31/24 19:22 Medications Medications Current Medications Acetaminophen (Acetaminophen 325 Mg Tablet) 650 mg PO Q6H PRN PRN Reason: Headache/Pain, Scale 1-10 Last Admin: 01/07/25 11:34 Dose: 650 mg Al Hydroxide/Mg Hydroxide (Magnesium Hydrox/Alum Hydrox 30 Ml Oral.Susp) 30 ml PO Q6H PRN PRN Reason: Heartburn/Nausea Ascorbic Acid (Ascorbic Acid 500 Mg Tablet) 1,000 mg PO DAILY [facility] Last Admin: 01/07/25 08:43 Dose: 1,000 mg Calcium Carbonate (Calcium Carbonate 750 Mg Tab.Chew) 750 mg PO Q6H PRN PRN Reason: Heartburn Last Admin: 01/06/25 18:09 Dose: 750 mg Clomipramine HCl (Clomipramine Hcl 25 Mg Capsule) 75 mg PO BEDTIME BREA Escitalopram Oxalate (Escitalopram Oxalate 10 Mg Tablet) 10 mg PO DAILY [facility] Hydroxyzine HCl (Hydroxyzine Hcl 25 Mg Tablet) 25 mg PO Q6H PRN PRN Reason: mild anxiety Last Admin: 01/07/25 10:24 Dose: 25 mg Lorazepam (Lorazepam 1 Mg Tablet) 1 mg PO TID PRN PRN Reason: Anxiety Last Admin: 01/05/25 11:55 Dose: 1 mg Magnesium Hydroxide (Milk Of Magnesia 30 Ml Oral.Susp) 30 ml PO DAILY PRN PRN Reason: Constipation Mirtazapine (Mirtazapine 15 Mg Tablet) 45 mg PO BEDTIME [facility] Last Admin: 01/06/25 20:06 Dose: 45 mg Multivitamins/Vitamin C (Multivitamin Tablet) 1 tab PO DAILY [facility] Last Admin: 01/07/25 08:44 Dose: 1 tab Nicotine Polacrilex (Nicotine Polacrilex 2 Mg Gum) 4 mg BUCCAL Q2H PRN PRN Reason: Nicotine Cravings Olanzapine (Olanzapine 5 Mg Tablet) 5 mg PO TID [facility] Last Admin: 01/07/25 08:43 Dose: 5 mg Ondansetron HCl (Ondansetron Odt 4 Mg Tab.Rapdis) 4 mg TRANSLINGU Q6H PRN PRN Reason: Nausea and Vomiting Last Admin: 01/04/25 20:02 Dose: 4 mg Quetiapine Fumarate (Quetiapine Fumarate 50 Mg Tablet) 50 mg PO BEDTIME PRN PRN Reason: Anxiety Last Admin: 01/06/25 23:45 Dose: 50 mg Trazodone HCl (Trazodone Hcl 50 Mg Tablet) 50 mg PO BEDTIME MRX1 PRN PRN Reason: Insomnia Last Admin: 01/06/25 23:46 Dose: 50 mg Allergies Allergies Allergy/AdvReac Type Severity Reaction Status Date / Time No Known Allergies Allergy Verified 12/30/24 11:36 Assessment & Plan Assessment & Plan (1) Major depressive disorder, recurrent severe without psychotic features: Status: Acute Code(s): F33.2 - Major depressive disorder, recurrent severe without psychotic features (2) Acute anxiety: Status: Acute Code(s): F41.9 - Anxiety disorder, unspecified Plan Plan Patient is a 39-year-old female, [employer] , with history of MDD, VENKAT, who presents for worsening and overwhelming anxiety and hopes to get ECT treatment. Patient reports depression and anxiety since teenage years. It has worsened significantly over the last year to the point where she has become debilitated; a constant stressor is her house in [place] remaining on the market, unsold; subsequently she has been living with her parents. Patient's depression has been significant and she endorses diminished interest, excessive guilt, low energy, poor concentration, having a force herself to shower... [facility] was [facility] to start [facility] and patient had 1 session this Saturday however her anxiety and depression became so overwhelming these past few days to the point where she could not stop crying or pacing the [place]orzano that she felt unable to wait the full 30 days it takes for T MS to be effective; patient has consistent thoughts that life is not worth living; she says she will not actively take her own life but wishes she would just not wake up. Patient says I feel out of my mind... Patient called providers [facility] told her to come to the emergency room. Patient endorses history of trauma but does not disclose; says she has been diagnosed with VENKAT as well as depression. Denies history of any manic episodes or behaviors; no drug or alcohol abuse formulation/clinical reasoning: hx of depression, with limited treatment results, though with limited med trials (effexor, abilify/brexpiprazole- tremors; lexapro, mirtazpine). She is overwhelmed with anxiety and depression -dx of VENKAT? Presents for ECT -will taper off lexapro and mirtazpine as she's been on high doses of both for months with no results. -agrees to start Clomipramine and ECT; discussed lithium but she had some reservations PlAN: cv q15 start Clomipramine 25mg lower Lexapro to 20mg (has been on 40mg for few months) continue MIrtazapine 45mg (will taper) Zyrpexa prn for anxiety/agitation ECT for saturday NPO 01/02: Increase Seroquel to 50 mg HS. Continue current management and treatment plan. ECT Wednesday 01/03: Increase Ativan to 1 mg TID. Hold after 8 PM on nights prior to ECT. 01/04: ECT #1 completed. BOLANOS, memory impairment immediately after. anxious. continue current mgmt. 01/05: calm, cooperative. incr anafranil to 50 mg QHS, decrease lexapro to 15 mg daily. ECT tomorrow, NPO p [place]. 01/06: completed ECT #2 without incident. no s/e from medications, reduced s/e from ECT. continue current mgmt. 01/07: remains depressed and anxious. increase clomipramine to 75 mg QHS, decrease lexapro to 10 daily. ECT in the morning. Reason for continued inpatient stay Substantial Risk for: harm to self and inability to function Time Spent With Patient Time: Total time managing care of this patient today __25__ minutes.
[2025-01-07] MEDS: clomiPRAMINE HCl 25 MG CAPSULE 75 MG PO (19:54)
[2025-01-07] MEDS: traZODone HCL 50 MG TABLET PO (19:54)
[2025-01-07] MEDS: Mirtazapine 15 MG TABLET 45 MG PO (19:54)
[2025-01-07 19:56] VITALS: BP 107/54; PULSE 77; RESP 14; TEMP 36.6; O2SAT 96
[2025-01-08] VITALS (12 sets, daily range): BP systolic 88–149; BP diastolic 51–87; PULSE 73–119; RESP 12–17; TEMP 36.1–37.7; O2SAT 96–99
--- NOTE | 2025-01-08 07:29 | MHC.SHP ---
Pre-Procedural Eval Section A - 24 Hr Update-Section A only Date of Service: 01/08/25 The patient is an INPATIENT: Yes Changes since office visit: Yes Patient answered all questions; No Cold of Flu in the past 2 weeks, No New Medical Problems and No Changes in Medication The patient has been examined within 24 hours of the surgical procedure. The History & Physical has been completed within 30 days and I have reviewed it.: Yes Section B - Complete if H&P > 30 days Chief Complaint: Crisis Allergies: Allergies Allergy/AdvReac Type Severity Reaction Status Date / Time No Known Allergies Allergy Verified 12/30/24 11:36 Plan I have reviewed the history and physical and performed a pertinent physical examination on my patient. No changes have occurred unless specified. Time Spent With Patient Time: Total time managing care of this patient today ____ minutes.
--- NOTE | 2025-01-08 07:49 | P.CONAN_ITS ---
HPI - Anesthesia Eval Consult details Narrative: 39 yo female patient for ECT PMFSH Active Problems Active Problems: All Active Problems Pre-op evaluation (Acute) Major depressive disorder, recurrent severe without psychotic features (Acute) Acute anxiety (Acute) Past Medical History Medical History Major depressive disorder, recurrent severe without psychotic features History of OCD (obsessive compulsive disorder) Family History Family history of problems with anesthesia: No Surgical History History of Problems with Anesthesia: No Social History Social History Household Members: Family Household Members Other:: 3 Housing: House Do you presently have visiting nurse or other home services: No Patient Tobacco Use Status: Never used Tobacco Smoked in Last 30 Days: No Patient Interested in Nicotine Replacement: No Patient Given Instructions on How to Stop Smoking: No Second Hand Smoke Exposure: No Use of substances other than those prescribed or required for medical reasons: No Substance Use Type: Caffiene Substance Use Type Other:: 2-4 cups decaf in morning Currently Displaying Signs/Symptoms of Drug Intoxication Withdrawal: No Any prior treatment program specific to substance use: No Have you been hit, kicked, punched, or otherwise hurt by someone within the past year? If so, by whom?: No Do you feel safe in your current relationship?: No Current Relationship Is there a partner from a previous relationship who is making you feel unsafe now?: No Are you made to feel afraid or neglected: No Spiritual Healthcare Practices: Spiritual [employer] Healthcare Practices: Religion Advance Directives: No Advance Directives Information Provided: Yes Do you have thoughts of harming others: None Do you have a plan to hurt others: No Plan Recently lost weight without trying: No Eating poorly because of decreased appetite: No Nutrition Risks: No Nutritional Risk Patient : No : No Poor oral hygiene: No service: Yes (Complexa) Sexual orientation: Unable to collect Meds Allergies Allergy/AdvReac Type Severity Reaction Status Date / Time No Known Allergies Allergy Verified 12/30/24 11:36 Active Medications: Current Medications Acetaminophen (Acetaminophen 325 Mg Tablet) 650 mg PO Q6H PRN PRN Reason: Headache/Pain, Scale 1-10 Last Admin: 01/07/25 17:42 Dose: 650 mg Al Hydroxide/Mg Hydroxide (Magnesium Hydrox/Alum Hydrox 30 Ml Oral.Susp) 30 ml PO Q6H PRN PRN Reason: Heartburn/Nausea Ascorbic Acid (Ascorbic Acid 500 Mg Tablet) 1,000 mg PO DAILY [facility] Last Admin: 01/07/25 08:43 Dose: 1,000 mg Calcium Carbonate (Calcium Carbonate 750 Mg Tab.Chew) 750 mg PO Q6H PRN PRN Reason: Heartburn Last Admin: 01/06/25 18:09 Dose: 750 mg Clomipramine HCl (Clomipramine Hcl 25 Mg Capsule) 75 mg PO BEDTIME [facility] Last Admin: 01/07/25 19:54 Dose: 75 mg Escitalopram Oxalate (Escitalopram Oxalate 10 Mg Tablet) 10 mg PO DAILY [facility] Hydroxyzine HCl (Hydroxyzine Hcl 25 Mg Tablet) 25 mg PO Q6H PRN PRN Reason: mild anxiety Last Admin: 01/07/25 10:24 Dose: 25 mg Lorazepam (Lorazepam 1 Mg Tablet) 1 mg PO TID PRN PRN Reason: Anxiety Last Admin: 01/05/25 11:55 Dose: 1 mg Magnesium Hydroxide (Milk Of Magnesia 30 Ml Oral.Susp) 30 ml PO DAILY PRN PRN Reason: Constipation Mirtazapine (Mirtazapine 15 Mg Tablet) 45 mg PO BEDTIME [facility] Last Admin: 01/07/25 19:54 Dose: 45 mg Multivitamins/Vitamin C (Multivitamin Tablet) 1 tab PO DAILY [facility] Last Admin: 01/07/25 08:44 Dose: 1 tab Nicotine Polacrilex (Nicotine Polacrilex 2 Mg Gum) 4 mg BUCCAL Q2H PRN PRN Reason: Nicotine Cravings Olanzapine (Olanzapine 5 Mg Tablet) 5 mg PO TID [facility] Last Admin: 01/07/25 19:54 Dose: 5 mg Ondansetron HCl (Ondansetron Odt 4 Mg Tab.Rapdis) 4 mg TRANSLINGU Q6H PRN PRN Reason: Nausea and Vomiting Last Admin: 01/04/25 20:02 Dose: 4 mg Quetiapine Fumarate (Quetiapine Fumarate 50 Mg Tablet) 50 mg PO BEDTIME PRN PRN Reason: Anxiety Last Admin: 01/06/25 23:45 Dose: 50 mg Trazodone HCl (Trazodone Hcl 50 Mg Tablet) 50 mg PO BEDTIME MRX1 PRN PRN Reason: Insomnia Last Admin: 01/07/25 19:54 Dose: 50 mg Home Medications ?Medication ?Instructions ?Recorded ?Confirmed ?Last Taken ?Type escitalopram oxalate 20 mg tablet 40 mg PO DAILY 12/30/24 12/31/24 Unknown History lorazepam 0.5 mg tablet (Ativan) 0.5 mg PO QID PRN Anxiety 12/30/24 12/31/24 Unknown History mirtazapine 45 mg tablet 45 mg PO BEDTIME 12/30/24 12/30/24 Unknown History quetiapine 25 mg tablet 25 mg PO BEDTIME PRN Anxiety 12/30/24 12/30/24 Unknown History ascorbic acid (vitamin C) 500 mg 1,000 mg PO DAILY 01/01/25 01/01/25 Unknown History tablet multivitamin 1 tab PO DAILY 01/01/25 01/01/25 Unknown History omega-3 fatty acids 500 mg capsule 1,000 mg PO DAILY 01/01/25 01/01/25 Unknown History Exam Height,Weight and Vital Signs: Height 5 ft 4 in Weight 48.172 kg Last Vital Signs Temp 97.0 F 01/08/25 06:59 Pulse 104 H 01/08/25 06:59 Resp 12 01/08/25 06:59 BP 96/62 01/08/25 06:59 Pulse Ox 96 01/08/25 06:59 O2 Del Method Room Air 01/08/25 06:59 O2 Flow Rate 2 01/06/25 07:30 Pertinent Lab Results Pertinent Lab Results: Laboratory Tests 12/30/24 12/30/24 12/31/24 11:48 12:05 19:22 WBC 6.2 RBC 4.48 Hgb 14.5 Hct 42.2 MCV 94.2 MCH 32.4 MCHC 34.4 RDW 11.9 Plt Count 293 MPV 9.5 Immature Gran % (Auto) 0.2 Neut % (Auto) 68.4 Lymph % (Auto) 24.4 [place] % (Auto) 5.9 Eos % (Auto) 0.5 Baso % (Auto) 0.6 Lymph # (Auto) 1.5 [place] # (Auto) 0.4 Eos # (Auto) 0.0 Baso # (Auto) 0.0 Abs Immat Gran (auto) 0.01 Absolute Neuts (auto) 4.3 Absolute Nucleated RBC 0.000 Nucleated RBC % (auto) 0.0 Sodium 140 138 Potassium 4.6 4.2 Chloride 106 104 Carbon Dioxide 29 26 Anion Gap 10 L 12 BUN 16 26 H Creatinine 0.76 0.74 Estim Creat Clear Calc 79.6 81.9 Estimated GFR > 60 > 60 Random Glucose 106 89 Calcium 9.4 9.6 Magnesium 2.2 Total Bilirubin 0.3 0.3 Direct Bilirubin 0.1 AST 20 11 ALT 21 20 Alkaline Phosphatase 57 49 Total Protein 7.6 7.0 Albumin 4.4 4.0 Triglycerides Cholesterol LDL Cholesterol, Calc HDL Cholesterol Beta HCG, Quant < 2 Urine Color Yellow Urine Appearance Cloudy Urine pH 6.0 Ur Specific [place] 1.025 Urine Protein Negative Urine Glucose (UA) Negative Urine Ketones Negative Urine Blood Negative Urine Nitrite Negative Ur Leukocyte Esterase Small (1+) H Urine RBC 0-2 Urine WBC 0-5 Ur Squamous Epith Cells >20 Urine Bacteria 2+ Hyaline Casts 0-2 Urine Test NEGATIVE Urine Opiates Screen Not Detected Ur Buprenorphine Scrn Not Detected Ur Oxycodone Screen Not Detected Urine Methadone Screen Not Detected Urine Fentanyl Screen Not Detected Ur Barbiturates Screen Not Detected Ur Phencyclidine Scrn Not Detected Ur Amphetamines Screen Not Detected U Benzodiazepines Scrn Not Detected Urine Cocaine Screen Not Detected U Marijuana (THC) Screen Not Detected Ethyl Alcohol 11 01/01/25 07:59 WBC RBC Hgb Hct MCV MCH MCHC RDW Plt Count MPV Immature Gran % (Auto) Neut % (Auto) Lymph % (Auto) [place] % (Auto) Eos % (Auto) Baso % (Auto) Lymph # (Auto) [place] # (Auto) Eos # (Auto) Baso # (Auto) Abs Immat Gran (auto) Absolute Neuts (auto) Absolute Nucleated RBC Nucleated RBC % (auto) Sodium Potassium Chloride Carbon Dioxide Anion Gap BUN Creatinine Estim Creat Clear Calc Estimated GFR Random Glucose Calcium Magnesium Total Bilirubin Direct Bilirubin AST ALT Alkaline Phosphatase Total Protein Albumin Triglycerides 78 Cholesterol 196 LDL Cholesterol, Calc 121 H HDL Cholesterol 60 Beta HCG, Quant Urine Color Urine Appearance Urine pH Ur Specific [place] Urine Protein Urine Glucose (UA) Urine Ketones Urine Blood Urine Nitrite Ur Leukocyte Esterase Urine RBC Urine WBC Ur Squamous Epith Cells Urine Bacteria Hyaline Casts Urine Test Urine Opiates Screen Ur Buprenorphine Scrn Ur Oxycodone Screen Urine Methadone Screen Urine Fentanyl Screen Ur Barbiturates Screen Ur Phencyclidine Scrn Ur Amphetamines Screen U Benzodiazepines Scrn Urine Cocaine Screen U Marijuana (THC) Screen Ethyl Alcohol Airway Mallampati Class: II TM Dist: >3cm Neck ROM: Full Loose/Missing/Broken Teeth: No Heart: RRR Lungs: CTAB Assessment and Plan Assessment Anesthesia Assessment: Anesthesia Plan Discussed and Chart Reviewed Final Anesthetic Review Family History of Problems with Anesthesia: No History of Problems with Anesthesia: No NPO: Yes ASA Class: III Final Preanesthetic Review: No Changes in Pt Med Stat, Meds/Allgs Chart Reviewed, Consent Obtained/Reviewed and Anes Risks/Benef Reviewed Patient Risk: Intermediate Procedure Risk: Intermediate Assessment/Block/Sedation in SS: Assess/Block/Sedation-SS Anesthetic Plan Anesthetic Plan: GA Disposition: Standard PACU
--- NOTE | 2025-01-08 08:06 | HO.ECTPROC ---
ECT Procedure Note Diagnosis/Treatment Date of Service: 01/12/25 Diagnosis: Major Depressive Disorder Current Treatment Number: 3 Treatment: Series Interval Clinical Notes: pt anxious dysphoric somewhat subdues alert oriented Time: Total time managing care of this patient today ____ minutes. ECT Settings Device: THYMATRON DGx Electrode Placement: Right Unilateral Program/Pulse Width: 0.25 Energy Percent: 100 Seizure Duration By EEG (in seconds): 46 Medications Administration General Anesthetic: Etomidate (10) Muscle Relaxant: Succinylcholine (70) Ancillary Medications Miscillaneous Medications: Midazolam (1) Treatment Recommendations No Changes Recommended: No change Pt Tolerated Procedure w/o Issue: Yes
[2025-01-08] MEDS: OLANZapine 5 MG TABLET PO ×2 (09:12→19:56)
[2025-01-08] MEDS: Ascorbic Acid 500 MG TABLET 1000 MG PO (09:12)
[2025-01-08] MEDS: Escitalopram Oxalate 10 MG TABLET PO (09:12)
[2025-01-08] MEDS: Multivitamin TABLET 1 TAB PO (09:13)
[2025-01-08] MEDS: Acetaminophen 325 MG TABLET 650 MG PO ×2 (10:07→19:19)
--- NOTE | 2025-01-08 14:27 | HO.PSYCHPN ---
Subjective Subjective Date of Service: 01/08/25 Reason For Visit: Crisis Interim History: calm, cooperative. less overtly anxious. completed ECT number three. asking about FMLA. per staff, anxious. slept 7 hours. ECT this morning without issue. less tearful, no panic attacks. some groups. Mental Status Exam Mental Status Exam Narrative: Pt is alert and oriented; behavior is cooperative, calm; dressed adequately, adequately groomed; mood is less anxious and affect less dysphoric; eye contact appropriate; Speech is normal rate, loudness and prosody and not pressured; psychomotor retardation present; thought process is organized and goal directed; Thought content is on various worries, tx; no SI/HI/AVH expressed. Patients insight and judgment improving. Diagnostics Vital Signs (24Hr): Vital Signs - 24 hr 01/07/25 19:56 01/08/25 06:30 01/08/25 06:59 Temperature 97.9 F 98.5 F 97.0 F Pulse Rate 77 117 H 104 H Respiratory Rate 14 16 12 Blood Pressure 107/54 L 88/51 L 96/62 Pulse Oximetry 96 98 96 Oxygen Delivery Method Room Air Room Air Oxygen Flow Rate 01/08/25 07:46 01/08/25 07:51 01/08/25 07:56 Temperature 97.2 F Pulse Rate 73 105 H 99 Respiratory Rate 16 14 17 Blood Pressure 149/87 H 125/70 125/70 Pulse Oximetry 99 96 97 Oxygen Delivery Method Nasal Cannula with ETCO2 Nasal Cannula with ETCO2 Nasal Cannula with ETCO2 Oxygen Flow Rate 2 2 2 01/08/25 08:01 01/08/25 08:15 01/08/25 08:30 Temperature Pulse Rate 119 H 103 H 102 H Respiratory Rate 17 17 17 Blood Pressure 114/64 101/63 106/58 L Pulse Oximetry 98 98 98 Oxygen Delivery Method Nasal Cannula with ETCO2 Nasal Cannula with ETCO2 Nasal Cannula with ETCO2 Oxygen Flow Rate 2 96 96 01/08/25 08:51 01/08/25 09:03 01/08/25 09:07 Temperature 97.0 F 98.2 F 98.2 F Pulse Rate 99 94 94 Respiratory Rate 17 16 16 Blood Pressure 95/63 105/58 L 105/58 L Pulse Oximetry 96 98 98 Oxygen Delivery Method Room Air Room Air Oxygen Flow Rate BMI result Body Mass Index 18.2 Labs 12/30/24 12:05 12/31/24 19:22 Medications Medications Current Medications Acetaminophen (Acetaminophen 325 Mg Tablet) 650 mg PO Q6H PRN PRN Reason: Headache/Pain, Scale 1-10 Last Admin: 01/08/25 10:07 Dose: 650 mg Al Hydroxide/Mg Hydroxide (Magnesium Hydrox/Alum Hydrox 30 Ml Oral.Susp) 30 ml PO Q6H PRN PRN Reason: Heartburn/Nausea Ascorbic Acid (Ascorbic Acid 500 Mg Tablet) 1,000 mg PO DAILY [facility] Last Admin: 01/08/25 09:12 Dose: 1,000 mg Calcium Carbonate (Calcium Carbonate 750 Mg Tab.Chew) 750 mg PO Q6H PRN PRN Reason: Heartburn Last Admin: 01/06/25 18:09 Dose: 750 mg Clomipramine HCl (Clomipramine Hcl 25 Mg Capsule) 75 mg PO BEDTIME [facility] Last Admin: 01/07/25 19:54 Dose: 75 mg Escitalopram Oxalate (Escitalopram Oxalate 10 Mg Tablet) 10 mg PO DAILY [facility] Last Admin: 01/08/25 09:12 Dose: 10 mg Hydroxyzine HCl (Hydroxyzine Hcl 25 Mg Tablet) 25 mg PO Q6H PRN PRN Reason: mild anxiety Last Admin: 01/07/25 10:24 Dose: 25 mg Lorazepam (Lorazepam 1 Mg Tablet) 1 mg PO TID PRN PRN Reason: Anxiety Last Admin: 01/05/25 11:55 Dose: 1 mg Magnesium Hydroxide (Milk Of Magnesia 30 Ml Oral.Susp) 30 ml PO DAILY PRN PRN Reason: Constipation Mirtazapine (Mirtazapine 15 Mg Tablet) 45 mg PO BEDTIME [facility] Last Admin: 01/07/25 19:54 Dose: 45 mg Multivitamins/Vitamin C (Multivitamin Tablet) 1 tab PO DAILY [facility] Last Admin: 01/08/25 09:13 Dose: 1 tab Nicotine Polacrilex (Nicotine Polacrilex 2 Mg Gum) 4 mg BUCCAL Q2H PRN PRN Reason: Nicotine Cravings Olanzapine (Olanzapine 5 Mg Tablet) 5 mg PO TID [facility] Last Admin: 01/08/25 14:21 Dose: Not Given Ondansetron HCl (Ondansetron Odt 4 Mg Tab.Rapdis) 4 mg TRANSLINGU Q6H PRN PRN Reason: Nausea and Vomiting Last Admin: 01/04/25 20:02 Dose: 4 mg Quetiapine Fumarate (Quetiapine Fumarate 50 Mg Tablet) 50 mg PO BEDTIME PRN PRN Reason: Anxiety Last Admin: 01/06/25 23:45 Dose: 50 mg Trazodone HCl (Trazodone Hcl 50 Mg Tablet) 50 mg PO BEDTIME MRX1 PRN PRN Reason: Insomnia Last Admin: 01/07/25 19:54 Dose: 50 mg Allergies Allergies Allergy/AdvReac Type Severity Reaction Status Date / Time No Known Allergies Allergy Verified 12/30/24 11:36 Assessment & Plan Assessment & Plan (1) Major depressive disorder, recurrent severe without psychotic features: Status: Acute Code(s): F33.2 - Major depressive disorder, recurrent severe without psychotic features (2) Acute anxiety: Status: Acute Code(s): F41.9 - Anxiety disorder, unspecified Plan Plan Patient is a 39-year-old female, [employer] , with history of MDD, VENKAT, who presents for worsening and overwhelming anxiety and hopes to get ECT treatment. Patient reports depression and anxiety since teenage years. It has worsened significantly over the last year to the point where she has become debilitated; a constant stressor is her house in [place] remaining on the market, unsold; subsequently she has been living with her parents. Patient's depression has been significant and she endorses diminished interest, excessive guilt, low energy, poor concentration, having a force herself to shower... She was sent [facility] to [facility] and patient had 1 session this Saturday however her anxiety and depression became so overwhelming these past few days to the point where she could not stop crying or pacing the solorzano that she felt unable to wait the full 30 days it takes for T MS to be effective; patient has consistent thoughts that life is not worth living; she says she will not actively take her own life but wishes she would just not wake up. Patient says I feel out of my mind... Patient called providers at the [facility] told her to come to the emergency room. Patient endorses history of trauma but does not disclose; says she has been diagnosed with VENKAT as well as depression. Denies history of any manic episodes or behaviors; no drug or alcohol abuse formulation/clinical reasoning: hx of depression, with limited treatment results, though with limited med trials (effexor, abilify/brexpiprazole- tremors; lexapro, mirtazpine). She is overwhelmed with anxiety and depression -dx of VENKAT? Presents for ECT -will taper off lexapro and mirtazpine as she's been on high doses of both for months with no results. -agrees to start Clomipramine and ECT; discussed lithium but she had some reservations PlAN: cv q15 start Clomipramine 25mg lower Lexapro to 20mg (has been on 40mg for few months) continue MIrtazapine 45mg (will taper) Zyrpexa prn for anxiety/agitation ECT for saturday NPO 01/02: Increase Seroquel to 50 mg HS. Continue current management and treatment plan. ECT Wednesday 01/03: Increase Ativan to 1 mg TID. Hold after 8 PM on nights prior to ECT. 01/04: ECT #1 completed. BOLANOS, memory impairment immediately after. anxious. continue current mgmt. 01/05: calm, cooperative. incr anafranil to 50 mg QHS, decrease lexapro to 15 mg daily. ECT tomorrow, NPO p MN. 01/06: completed ECT #2 without incident. no s/e from medications, reduced s/e from ECT. continue current mgmt. 01/07: remains depressed and anxious. increase clomipramine to 75 mg QHS, decrease lexapro to 10 daily. ECT in the morning. 01/08: completed ECT #3 without incident today. continue current mgmt through saturday, plan to progress in anafranil/lexapro cross-taper on saturday. Reason for continued inpatient stay Substantial Risk for: harm to self and inability to function Time Spent With Patient Time: Total time managing care of this patient today __25__ minutes.
[2025-01-08] MEDS: clomiPRAMINE HCl 25 MG CAPSULE 75 MG PO (19:56)
[2025-01-08] MEDS: Mirtazapine 15 MG TABLET 45 MG PO (19:56)
[2025-01-08] MEDS: traZODone HCL 50 MG TABLET PO (19:56)
[2025-01-08] MEDS: LORazepam 1 MG TABLET PO (20:32)
[2025-01-08] MEDS: Calcium Carbonate 750 MG TAB.CHEW PO (20:36)
[2025-01-09 07:35] VITALS: BP 99/54; PULSE 99; RESP 16; TEMP 37.3; O2SAT 96
[2025-01-09] MEDS: Multivitamin TABLET 1 TAB PO (08:15)
[2025-01-09] MEDS: Ascorbic Acid 500 MG TABLET 1000 MG PO (08:15)
[2025-01-09] MEDS: OLANZapine 5 MG TABLET PO ×2 (08:15→19:53)
[2025-01-09] MEDS: Escitalopram Oxalate 10 MG TABLET PO (08:15)
--- NOTE | 2025-01-09 08:55 | P.PNPSI_ITS ---
Subjective Subjective Date of Service: 01/09/25 Reason For Visit: Crisis Subjective Notes: Conditional Voluntary Interim History: The nursing staff reported the patient had a brighter affect yesterday. She had poor appetite she did not have breakfast or lunch but ate 100% of her dinner. She refused Zyprexa at night last night. Her vital signs are stable. She slept 8 hours. On interview the patient reports some anxiety and dysphoria, no new changes. She admitted that ECT has helped her. Mental Status Exam Mental Status Exam Patient Appearance: Appropriate Patient Orientation: Person and Situation Level of Consciousness: Awake and Appropriate Patient Behavior: Guarded and Passive Mood Description: Withdrawn Affect Description: Constricted Patient Cognition Impaired: Yes Ability to Follow Directions: Good Speech Pattern: Clear Hallucinations: None Delusions: Not Present Thought Process: Goal Oriented and Linear Thought Content: positive for [place] and positive for Circumstantial Judgement: Fair Diagnostics Vital Signs (24Hr): Vital Signs - 24 hr 01/08/25 09:03 01/08/25 09:07 01/08/25 20:10 Temperature 98.2 F 98.2 F 99.8 F Pulse Rate 94 94 78 Respiratory Rate 16 16 14 Blood Pressure 105/58 L 105/58 L 96/51 L Pulse Oximetry 98 98 96 Oxygen Delivery Method Room Air Room Air 01/09/25 07:35 Temperature 99.1 F Pulse Rate 99 Respiratory Rate 16 Blood Pressure 99/54 L Pulse Oximetry 96 Oxygen Delivery Method Room Air BMI result Body Mass Index 18.2 Labs 12/30/24 12:05 12/31/24 19:22 Medications Medications Current Medications Acetaminophen (Acetaminophen 325 Mg Tablet) 650 mg PO Q6H PRN PRN Reason: Headache/Pain, Scale 1-10 Last Admin: 01/08/25 19:19 Dose: 650 mg Al Hydroxide/Mg Hydroxide (Magnesium Hydrox/Alum Hydrox 30 Ml Oral.Susp) 30 ml PO Q6H PRN PRN Reason: Heartburn/Nausea Ascorbic Acid (Ascorbic Acid 500 Mg Tablet) 1,000 mg PO DAILY [facility] Last Admin: 01/09/25 08:15 Dose: 1,000 mg Calcium Carbonate (Calcium Carbonate 750 Mg Tab.Chew) 750 mg PO Q6H PRN PRN Reason: Heartburn Last Admin: 01/08/25 20:36 Dose: 750 mg Clomipramine HCl (Clomipramine Hcl 25 Mg Capsule) 75 mg PO BEDTIME [facility] Last Admin: 01/08/25 19:56 Dose: 75 mg Escitalopram Oxalate (Escitalopram Oxalate 10 Mg Tablet) 10 mg PO DAILY [facility] Last Admin: 01/09/25 08:15 Dose: 10 mg Hydroxyzine HCl (Hydroxyzine Hcl 25 Mg Tablet) 25 mg PO Q6H PRN PRN Reason: mild anxiety Last Admin: 01/07/25 10:24 Dose: 25 mg Ibuprofen (Ibuprofen 600 Mg Tablet) 600 mg PO Q6H PRN PRN Reason: BOLANOS Lorazepam (Lorazepam 1 Mg Tablet) 1 mg PO TID PRN PRN Reason: Anxiety Last Admin: 01/08/25 20:32 Dose: 1 mg Magnesium Hydroxide (Milk Of Magnesia 30 Ml Oral.Susp) 30 ml PO DAILY PRN PRN Reason: Constipation Mirtazapine (Mirtazapine 15 Mg Tablet) 45 mg PO BEDTIME [facility] Last Admin: 01/08/25 19:56 Dose: 45 mg Multivitamins/Vitamin C (Multivitamin Tablet) 1 tab PO DAILY [facility] Last Admin: 01/09/25 08:15 Dose: 1 tab Nicotine Polacrilex (Nicotine Polacrilex 2 Mg Gum) 4 mg BUCCAL Q2H PRN PRN Reason: Nicotine Cravings Olanzapine (Olanzapine 5 Mg Tablet) 5 mg PO TID [facility] Last Admin: 01/09/25 08:15 Dose: 5 mg Ondansetron HCl (Ondansetron Odt 4 Mg Tab.Rapdis) 4 mg TRANSLINGU Q6H PRN PRN Reason: Nausea and Vomiting Last Admin: 01/04/25 20:02 Dose: 4 mg Quetiapine Fumarate (Quetiapine Fumarate 50 Mg Tablet) 50 mg PO BEDTIME PRN PRN Reason: Anxiety Last Admin: 01/06/25 23:45 Dose: 50 mg Trazodone HCl (Trazodone Hcl 50 Mg Tablet) 50 mg PO BEDTIME MRX1 PRN PRN Reason: Insomnia Last Admin: 01/08/25 19:56 Dose: 50 mg Allergies Allergies Allergy/AdvReac Type Severity Reaction Status Date / Time No Known Allergies Allergy Verified 12/30/24 11:36 Assessment & Plan Assessment & Plan (1) Major depressive disorder, recurrent severe without psychotic features: Status: Acute Code(s): F33.2 - Major depressive disorder, recurrent severe without psychotic features (2) Acute anxiety: Status: Acute Code(s): F41.9 - Anxiety disorder, unspecified Plan Plan Patient is a 39-year-old female, [employer] , with history of MDD, VENKAT, who presents for worsening and overwhelming anxiety and hopes to get ECT treatment. Patient reports depression and anxiety since teenage years. It has worsened significantly over the last year to the point where she has become debilitated; a constant stressor is her house in [place] remaining on the market, unsold; subsequently she has been living with her parents. Patient's depression has been significant and she endorses diminished interest, excessive guilt, low energy, poor concentration, having a force herself to shower... [facility] was sent [facility] the [facility] to start [facility] and patient had 1 session this Saturday however her anxiety and depression became so overwhelming these past few days to the point where she could not stop crying or pacing the solorzano that she felt unable to wait the full 30 days it takes for T MS to be effective; patient has consistent thoughts that life is not worth living; she says she will not actively take her own life but wishes she would just not wake up. Patient says I feel out of my mind... Patient called providers at the [facility] told her to come to the emergency room. Patient endorses history of trauma but does not disclose; says she has been diagnosed with VENKAT as well as depression. Denies history of any manic episodes or behaviors; no drug or alcohol abuse formulation/clinical reasoning: hx of depression, with limited treatment results, though with limited med trials (effexor, abilify/brexpiprazole- tremors; lexapro, mirtazpine). She is overwhelmed with anxiety and depression -dx of VENKAT? Presents for ECT -will taper off lexapro and mirtazpine as she's been on high doses of both for months with no results. -agrees to start Clomipramine and ECT; discussed lithium but she had some reservations PlAN: cv q15 start Clomipramine 25mg lower Lexapro to 20mg (has been on 40mg for few months) continue MIrtazapine 45mg (will taper) Zyrpexa prn for anxiety/agitation ECT for saturday NPO 01/02: Increase Seroquel to 50 mg HS. Continue current management and treatment plan. ECT Wednesday 01/03: Increase Ativan to 1 mg TID. Hold after 8 PM on nights prior to ECT. 01/04: ECT #1 completed. BOLANOS, memory impairment immediately after. anxious. continue current mgmt. 01/05: calm, cooperative. incr anafranil to 50 mg QHS, decrease lexapro to 15 mg daily. ECT tomorrow, NPO p MN. 01/06: completed ECT #2 without incident. no s/e from medications, reduced s/e from ECT. continue current mgmt. 01/07: remains depressed and anxious. increase clomipramine to 75 mg QHS, decrease lexapro to 10 daily. ECT in the morning. 01/08: completed ECT #3 without incident today. continue current mgmt through saturday, plan to progress in anafranil/lexapro cross-taper on saturday. 01/09 keep same treatment. Reason for continued inpatient stay Substantial Risk for: inability to function, rapid decompensation and med/psych decompensation Time Spent With Patient Time: Total time managing care of this patient today __20__ minutes.
[2025-01-09] MEDS: Milk of Magnesia 30 ML ORAL.SUSP PO (10:48)
[2025-01-09 19:10] VITALS: BP 113/74; PULSE 90; RESP 16; TEMP 36.5; O2SAT 97
[2025-01-09] MEDS: Mirtazapine 15 MG TABLET 45 MG PO (19:53)
[2025-01-09] MEDS: clomiPRAMINE HCl 25 MG CAPSULE 75 MG PO (19:53)
[2025-01-09] MEDS: hydrOXYzine HCL 25 MG TABLET PO (19:54)
[2025-01-09] MEDS: traZODone HCL 50 MG TABLET PO (19:55)
[2025-01-10 08:00] VITALS: BP 91/59; PULSE 96; RESP 16; TEMP 37.3; O2SAT 97
[2025-01-10] MEDS: Ascorbic Acid 500 MG TABLET 1000 MG PO (08:13)
[2025-01-10] MEDS: Multivitamin TABLET 1 TAB PO (08:13)
[2025-01-10] MEDS: OLANZapine 5 MG TABLET PO ×2 (08:13→20:09)
[2025-01-10] MEDS: Escitalopram Oxalate 10 MG TABLET PO (08:13)
--- NOTE | 2025-01-10 08:37 | HO.PSYCHPN ---
Subjective Subjective Date of Service: 01/10/25 Reason For Visit: Crisis Subjective Notes: Conditional Voluntary Interim History: The nursing staff reported the patient had been compliant with treatment, pleasant, soft-spoken. Still mildly dysphoric with flat affect but overall her affect looks slightly brighter. She slept 8 hours. On interview the patient denies new symptoms, less dysphoric. Mental Status Exam Mental Status Exam Patient Appearance: Well Grooomed and Appropriate Patient Orientation: Person and Situation Level of Consciousness: Awake and Appropriate Patient Behavior: Guarded and Passive Mood Description: Withdrawn Affect Description: Constricted Patient Cognition Impaired: Yes Ability to Follow Directions: Good Speech Pattern: Clear Hallucinations: None Delusions: Not Present Thought Process: Linear Thought Content: positive for [place] and positive for Circumstantial Judgement: Fair Diagnostics Vital Signs (24Hr): Vital Signs - 24 hr 01/09/25 19:10 01/10/25 08:00 Temperature 97.7 F 99.1 F Pulse Rate 90 96 Respiratory Rate 16 16 Blood Pressure 113/74 91/59 L Pulse Oximetry 97 97 Oxygen Delivery Method Room Air Room Air BMI result Body Mass Index 18.2 Labs 12/30/24 12:05 12/31/24 19:22 Medications Medications Current Medications Acetaminophen (Acetaminophen 325 Mg Tablet) 650 mg PO Q6H PRN PRN Reason: Headache/Pain, Scale 1-10 Last Admin: 01/08/25 19:19 Dose: 650 mg Al Hydroxide/Mg Hydroxide (Magnesium Hydrox/Alum Hydrox 30 Ml Oral.Susp) 30 ml PO Q6H PRN PRN Reason: Heartburn/Nausea Ascorbic Acid (Ascorbic Acid 500 Mg Tablet) 1,000 mg PO DAILY [facility] Last Admin: 01/10/25 08:13 Dose: 1,000 mg Calcium Carbonate (Calcium Carbonate 750 Mg Tab.Chew) 750 mg PO Q6H PRN PRN Reason: Heartburn Last Admin: 01/08/25 20:36 Dose: 750 mg Clomipramine HCl (Clomipramine Hcl 25 Mg Capsule) 75 mg PO BEDTIME [facility] Last Admin: 01/09/25 19:53 Dose: 75 mg Escitalopram Oxalate (Escitalopram Oxalate 10 Mg Tablet) 10 mg PO DAILY [facility] Last Admin: 01/10/25 08:13 Dose: 10 mg Hydroxyzine HCl (Hydroxyzine Hcl 25 Mg Tablet) 25 mg PO Q6H PRN PRN Reason: mild anxiety Last Admin: 01/09/25 19:54 Dose: 25 mg Ibuprofen (Ibuprofen 600 Mg Tablet) 600 mg PO Q6H PRN PRN Reason: BOLANOS Lorazepam (Lorazepam 1 Mg Tablet) 1 mg PO TID PRN PRN Reason: Anxiety Last Admin: 01/08/25 20:32 Dose: 1 mg Magnesium Hydroxide (Milk Of Magnesia 30 Ml Oral.Susp) 30 ml PO DAILY PRN PRN Reason: Constipation Last Admin: 01/09/25 10:48 Dose: 30 ml Mirtazapine (Mirtazapine 15 Mg Tablet) 45 mg PO BEDTIME [facility] Last Admin: 01/09/25 19:53 Dose: 45 mg Multivitamins/Vitamin C (Multivitamin Tablet) 1 tab PO DAILY [facility] Last Admin: 01/10/25 08:13 Dose: 1 tab Nicotine Polacrilex (Nicotine Polacrilex 2 Mg Gum) 4 mg BUCCAL Q2H PRN PRN Reason: Nicotine Cravings Olanzapine (Olanzapine 5 Mg Tablet) 5 mg PO TID [facility] Last Admin: 01/10/25 08:13 Dose: 5 mg Ondansetron HCl (Ondansetron Odt 4 Mg Tab.Rapdis) 4 mg TRANSLINGU Q6H PRN PRN Reason: Nausea and Vomiting Last Admin: 01/04/25 20:02 Dose: 4 mg Quetiapine Fumarate (Quetiapine Fumarate 50 Mg Tablet) 50 mg PO BEDTIME PRN PRN Reason: Anxiety Last Admin: 01/06/25 23:45 Dose: 50 mg Trazodone HCl (Trazodone Hcl 50 Mg Tablet) 50 mg PO BEDTIME MRX1 PRN PRN Reason: Insomnia Last Admin: 01/09/25 19:55 Dose: 50 mg Allergies Allergies Allergy/AdvReac Type Severity Reaction Status Date / Time No Known Allergies Allergy Verified 12/30/24 11:36 Assessment & Plan Assessment & Plan (1) Major depressive disorder, recurrent severe without psychotic features: Status: Acute Code(s): F33.2 - Major depressive disorder, recurrent severe without psychotic features (2) Acute anxiety: Status: Acute Code(s): F41.9 - Anxiety disorder, unspecified Plan Plan Patient is a 39-year-old female, [employer] , with history of MDD, VENKAT, who presents for worsening and overwhelming anxiety and hopes to get ECT treatment. Patient reports depression and anxiety since teenage years. It has worsened significantly over the last year to the point where she has become debilitated; a constant stressor is her house in [place] remaining on the market, unsold; subsequently she has been living with her parents. Patient's depression has been significant and she endorses diminished interest, excessive guilt, low energy, poor concentration, having a force herself to shower... She was sent from the [place] to start TMS and patient had 1 session this Saturday however her anxiety and depression became so overwhelming these past few days to the point where she could not stop crying or pacing the [place]orzano that she felt unable to wait the full 30 days it takes for T MS to be effective; patient has consistent thoughts that life is not worth living; she says she will not actively take her own life but wishes she would just not wake up. Patient says I feel out of my mind... Patient [facility] providers [facility] told her to come to the emergency room. Patient endorses history of trauma but does not disclose; says she has been diagnosed with VENKAT as well as depression. Denies history of any manic episodes or behaviors; no drug or alcohol abuse formulation/clinical reasoning: hx of depression, with limited treatment results, though with limited med trials (effexor, abilify/brexpiprazole- tremors; lexapro, mirtazpine). She is overwhelmed with anxiety and depression -dx of VENKAT? Presents for ECT -will taper off lexapro and mirtazpine as she's been on high doses of both for months with no results. -agrees to start Clomipramine and ECT; discussed lithium but she had some reservations PlAN: cv q15 start Clomipramine 25mg lower Lexapro to 20mg (has been on 40mg for few months) continue MIrtazapine 45mg (will taper) Zyrpexa prn for anxiety/agitation ECT for saturday NPO 01/02: Increase Seroquel to 50 mg HS. Continue current management and treatment plan. ECT Wednesday 01/03: Increase Ativan to 1 mg TID. Hold after 8 PM on nights prior to ECT. 01/04: ECT #1 completed. BOLANOS, memory impairment immediately after. anxious. continue current mgmt. 01/05: calm, cooperative. incr anafranil to 50 mg QHS, decrease lexapro to 15 mg daily. ECT tomorrow, NPO p MN. 01/06: completed ECT #2 without incident. no s/e from medications, reduced s/e from ECT. continue current mgmt. 01/07: remains depressed and anxious. increase clomipramine to 75 mg QHS, decrease lexapro to 10 daily. ECT in the morning. 01/08: completed ECT #3 without incident today. continue current mgmt through saturday, plan to progress in anafranil/lexapro cross-taper on saturday. 01/09 keep same treatment. 01/10 keep same treatment Reason for continued inpatient stay Substantial Risk for: inability to function, rapid decompensation and med/psych decompensation Time Spent With Patient Time: Total time managing care of this patient today __20__ minutes.
[2025-01-10 20:00] VITALS: BP 107/65; PULSE 83; RESP 16; TEMP 36.7; O2SAT 98
[2025-01-10] MEDS: clomiPRAMINE HCl 25 MG CAPSULE 75 MG PO (20:08)
[2025-01-10] MEDS: Mirtazapine 15 MG TABLET 45 MG PO (20:09)
[2025-01-11] VITALS (10 sets, daily range): BP systolic 96–121; BP diastolic 55–69; PULSE 78–121; RESP 14–18; TEMP 36.1–36.8; O2SAT 95–98
--- NOTE | 2025-01-11 07:25 | MHC.SHP ---
Pre-Procedural Eval Section A - 24 Hr Update-Section A only Date of Service: 01/11/25 The patient is an INPATIENT: Yes Changes since office visit: Yes Patient answered all questions; No Cold of Flu in the past 2 weeks, No New Medical Problems and No Changes in Medication The patient has been examined within 24 hours of the surgical procedure. The History & Physical has been completed within 30 days and I have reviewed it.: Yes Section B - Complete if H&P > 30 days Chief Complaint: Crisis Allergies: Allergies Allergy/AdvReac Type Severity Reaction Status Date / Time No Known Allergies Allergy Verified 12/30/24 11:36 Plan I have reviewed the history and physical and performed a pertinent physical examination on my patient. No changes have occurred unless specified. Time Spent With Patient Time: Total time managing care of this patient today ____ minutes.
[2025-01-11] MEDS: OLANZapine 5 MG TABLET PO ×3 (08:55→22:15)
[2025-01-11] MEDS: Ascorbic Acid 500 MG TABLET 1000 MG PO (08:55)
[2025-01-11] MEDS: Escitalopram Oxalate 10 MG TABLET PO (08:55)
[2025-01-11] MEDS: Multivitamin TABLET 1 TAB PO (08:56)
--- NOTE | 2025-01-11 13:02 | P.PNPSI_ITS ---
Subjective Subjective Date of Service: 01/11/25 Reason For Visit: Crisis Interim History: calm, cooperative,pleasant. no expressions of anxiety or depression. reports she is feeling better. would like to stay inpatient for whole ECT course. agreeable to increase anafranil to 100 mg tonight and decrease lexapro to 5 mg tomorrow morning. per staff, anxious, brighter affect, though. feels ECT very helpful. endorsing depression. went to be early. slept 8 hours, completed ECT this morning. Mental Status Exam Mental Status Exam Narrative: Pt is alert and oriented; behavior is cooperative, calm; dressed adequately, adequately groomed; mood is less anxious and affect less dysphoric; eye contact appropriate; Speech is normal rate, loudness and prosody and not pressured; psychomotor retardation present; thought process is organized and goal directed; Thought content is on improevement; no SI/HI/AVH expressed. Patients insight and judgment improving. Diagnostics Vital Signs (24Hr): Vital Signs - 24 hr 01/10/25 20:00 01/11/25 06:18 01/11/25 06:57 Temperature 98.0 F 97.3 F 97.3 F Pulse Rate 83 120 H 85 Respiratory Rate 16 14 18 Blood Pressure 107/65 112/60 103/63 Pulse Oximetry 98 95 98 Oxygen Delivery Method Room Air Room Air Oxygen Flow Rate 01/11/25 07:45 01/11/25 07:50 01/11/25 07:55 Temperature 98.1 F Pulse Rate 101 H 102 H 114 H Respiratory Rate 15 16 16 Blood Pressure 121/69 120/67 116/59 L Pulse Oximetry 95 96 97 Oxygen Delivery Method Nasal Cannula with ETCO2 Nasal Cannula with ETCO2 Nasal Cannula with ETCO2 Oxygen Flow Rate 5 5 5 01/11/25 08:00 01/11/25 08:15 01/11/25 08:30 Temperature 98.1 F 97.0 F Pulse Rate 121 H 108 H 99 Respiratory Rate 16 16 14 Blood Pressure 117/69 103/62 109/59 L Pulse Oximetry 98 98 97 Oxygen Delivery Method Nasal Cannula with ETCO2 Room Air Room Air Oxygen Flow Rate 5 01/11/25 08:31 Temperature 97.0 F Pulse Rate 99 Respiratory Rate 14 Blood Pressure 109/59 L Pulse Oximetry Oxygen Delivery Method Oxygen Flow Rate BMI result Body Mass Index 18.2 Labs 12/30/24 12:05 12/31/24 19:22 Medications Medications Current Medications Acetaminophen (Acetaminophen 325 Mg Tablet) 650 mg PO Q6H PRN PRN Reason: Headache/Pain, Scale 1-10 Last Admin: 01/08/25 19:19 Dose: 650 mg Al Hydroxide/Mg Hydroxide (Magnesium Hydrox/Alum Hydrox 30 Ml Oral.Susp) 30 ml PO Q6H PRN PRN Reason: Heartburn/Nausea Ascorbic Acid (Ascorbic Acid 500 Mg Tablet) 1,000 mg PO DAILY [facility] Last Admin: 01/11/25 08:55 Dose: 1,000 mg Calcium Carbonate (Calcium Carbonate 750 Mg Tab.Chew) 750 mg PO Q6H PRN PRN Reason: Heartburn Last Admin: 01/08/25 20:36 Dose: 750 mg Clomipramine HCl (Clomipramine Hcl 25 Mg Capsule) 100 mg PO BEDTIME [facility] Escitalopram Oxalate (Escitalopram Oxalate 5 Mg Tablet) 5 mg PO DAILY [facility] Hydroxyzine HCl (Hydroxyzine Hcl 25 Mg Tablet) 25 mg PO Q6H PRN PRN Reason: mild anxiety Last Admin: 01/09/25 19:54 Dose: 25 mg Ibuprofen (Ibuprofen 600 Mg Tablet) 600 mg PO Q6H PRN PRN Reason: BOLANOS Lorazepam (Lorazepam 1 Mg Tablet) 1 mg PO TID PRN PRN Reason: Anxiety Last Admin: 01/08/25 20:32 Dose: 1 mg Magnesium Hydroxide (Milk Of Magnesia 30 Ml Oral.Susp) 30 ml PO DAILY PRN PRN Reason: Constipation Last Admin: 01/09/25 10:48 Dose: 30 ml Mirtazapine (Mirtazapine 15 Mg Tablet) 45 mg PO BEDTIME [facility] Last Admin: 01/10/25 20:09 Dose: 45 mg Multivitamins/Vitamin C (Multivitamin Tablet) 1 tab PO DAILY [facility] Last Admin: 01/11/25 08:56 Dose: 1 tab Nicotine Polacrilex (Nicotine Polacrilex 2 Mg Gum) 4 mg BUCCAL Q2H PRN PRN Reason: Nicotine Cravings Olanzapine (Olanzapine 5 Mg Tablet) 5 mg PO TID [facility] Last Admin: 01/11/25 08:55 Dose: 5 mg Ondansetron HCl (Ondansetron Odt 4 Mg Tab.Rapdis) 4 mg TRANSLINGU Q6H PRN PRN Reason: Nausea and Vomiting Last Admin: 01/04/25 20:02 Dose: 4 mg Quetiapine Fumarate (Quetiapine Fumarate 50 Mg Tablet) 50 mg PO BEDTIME PRN PRN Reason: Anxiety Last Admin: 01/06/25 23:45 Dose: 50 mg Trazodone HCl (Trazodone Hcl 50 Mg Tablet) 50 mg PO BEDTIME MRX1 PRN PRN Reason: Insomnia Last Admin: 01/09/25 19:55 Dose: 50 mg Allergies Allergies Allergy/AdvReac Type Severity Reaction Status Date / Time No Known Allergies Allergy Verified 12/30/24 11:36 Assessment & Plan Assessment & Plan (1) Major depressive disorder, recurrent severe without psychotic features: Status: Acute Code(s): F33.2 - Major depressive disorder, recurrent severe without psychotic features (2) Acute anxiety: Status: Acute Code(s): F41.9 - Anxiety disorder, unspecified Plan Plan Patient is a 39-year-old female, [employer] , with history of MDD, VENKAT, who presents for worsening and overwhelming anxiety and hopes to get ECT treatment. Patient reports depression and anxiety since teenage years. It has worsened significantly over the last year to the point where she has become debilitated; a constant stressor is her house in [place] remaining on the market, unsold; subsequently she has been living with her parents. Patient's depression has been significant and she endorses diminished interest, excessive guilt, low energy, poor concentration, having a force herself to shower... She was sent from the [facility] to start TMS and patient had 1 session this Saturday however her anxiety and depression became so overwhelming these past few days to the point where she could not stop crying or pacing the [place] that she felt unable to wait the full 30 days it takes for T MS to be effective; patient has consistent thoughts that life is not worth living; she says she will not actively take her own life but wishes she would just not wake up. Patient says I feel out of my mind... Patient called providers at the [facility] told her to come to the emergency room. Patient endorses history of trauma but does not disclose; says she has been diagnosed with VENKAT as well as depression. Denies history of any manic episodes or behaviors; no drug or alcohol abuse formulation/clinical reasoning: hx of depression, with limited treatment results, though with limited med trials (effexor, abilify/brexpiprazole- tremors; lexapro, mirtazpine). She is overwhelmed with anxiety and depression -dx of VENKAT? Presents for ECT -will taper off lexapro and mirtazpine as she's been on high doses of both for months with no results. -agrees to start Clomipramine and ECT; discussed lithium but she had some reservations PlAN: cv q15 start Clomipramine 25mg lower Lexapro to 20mg (has been on 40mg for few months) continue MIrtazapine 45mg (will taper) Zyrpexa prn for anxiety/agitation ECT for saturday NPO 01/02: Increase Seroquel to 50 mg HS. Continue current management and treatment plan. ECT Wednesday 01/03: Increase Ativan to 1 mg TID. Hold after 8 PM on nights prior to ECT. 01/04: ECT #1 completed. BOLANOS, memory impairment immediately after. anxious. continue current mgmt. 01/05: calm, cooperative. incr anafranil to 50 mg QHS, decrease lexapro to 15 mg daily. ECT tomorrow, NPO p MN. 01/06: completed ECT #2 without incident. no s/e from medications, reduced s/e from ECT. continue current mgmt. 01/07: remains depressed and anxious. increase clomipramine to 75 mg QHS, decrease lexapro to 10 daily. ECT in the morning. 01/08: completed ECT #3 without incident today. continue current mgmt through saturday, plan to progress in anafranil/lexapro cross-taper on saturday. 01/09 keep same treatment. 01/10 keep same treatment 01/11: less anxious and depressed. focused on improvement, not worries today. ECT #4 completed without incident this morning. increase anafranil to 100 mg tonight and decrease lexapro to 5 mg tomorrow morning. planning to remain in hospital for entire course. Reason for continued inpatient stay Substantial Risk for: inability to function and rapid decompensation Time Spent With Patient Time: Total time managing care of this patient today __25__ minutes.
[2025-01-11] MEDS: Calcium Carbonate 750 MG TAB.CHEW PO (17:51)
--- NOTE | 2025-01-11 21:14 | PC.NURSE ---
HS medications-attempted to give at this time. although arousable patient appears tired. opened her eyes to RN's voice then closed her eyes again. will attempt to give later.
[2025-01-11] MEDS: clomiPRAMINE HCl 25 MG CAPSULE 100 MG PO (22:15)
[2025-01-11] MEDS: Mirtazapine 15 MG TABLET 45 MG PO (22:15)
[2025-01-11] MEDS: traZODone HCL 50 MG TABLET PO (22:18)
[2025-01-12 07:44] VITALS: BP 90/51; PULSE 96; RESP 16; TEMP 36.2; O2SAT 99
[2025-01-12] MEDS: OLANZapine 5 MG TABLET PO ×2 (08:28→20:34)
[2025-01-12] MEDS: Escitalopram Oxalate 5 MG TABLET PO (08:28)
[2025-01-12] MEDS: Multivitamin TABLET 1 TAB PO (08:28)
[2025-01-12] MEDS: Ascorbic Acid 500 MG TABLET 1000 MG PO (08:28)
--- NOTE | 2025-01-12 14:07 | HO.ECTPROC ---
ECT Procedure Note Diagnosis/Treatment Date of Service: 01/11/25 Diagnosis: Major Depressive Disorder Previous ECT Date: 01/08/25 Current Treatment Number: 4 Treatment: Series Interval Clinical Notes: pt feeling better no c/o side effects Time: Total time managing care of this patient today ____ minutes. ECT Settings Device: THYMATRON DGx Electrode Placement: Right Unilateral Program/Pulse Width: 0.50 Energy Percent: 80 Seizure Duration By EEG (in seconds): 47 Medications Administration General Anesthetic: Etomidate (10) Muscle Relaxant: Succinylcholine (70) Ancillary Medications Anti-emetics: Zofran - Pre ECT Miscillaneous Medications: Midazolam (1) Treatment Recommendations Notes: if more confused slowed dec back to 0.25 program Pt Tolerated Procedure w/o Issue: Yes
[2025-01-12] MEDS: LORazepam 1 MG TABLET PO (19:55)
[2025-01-12 20:23] VITALS: BP 94/61; PULSE 81; RESP 16; TEMP 36.6; O2SAT 98
[2025-01-12] MEDS: clomiPRAMINE HCl 25 MG CAPSULE 100 MG PO (20:35)
[2025-01-12] MEDS: Mirtazapine 15 MG TABLET 45 MG PO (20:35)
[2025-01-13] VITALS (11 sets, daily range): BP systolic 91–131; BP diastolic 55–79; PULSE 64–115; RESP 14–16; TEMP 36.1–37.1; O2SAT 97–100
--- NOTE | 2025-01-13 06:44 | P.CONAN_ITS ---
[facility] Active Problems Active Problems: All Active Problems Pre-op evaluation (Acute) Major depressive disorder, recurrent severe without psychotic features (Acute) Acute anxiety (Acute) Past Medical History Medical History Major depressive disorder, recurrent severe without psychotic features History of OCD (obsessive compulsive disorder) Family History Family history of problems with anesthesia: No Surgical History History of Problems with Anesthesia: No Social History Social History Household Members: Family Household Members Other:: 3 Housing: House Do you presently have visiting nurse or other home services: No Patient Tobacco Use Status: Never used Tobacco Smoked in Last 30 Days: No Patient Interested in Nicotine Replacement: No Patient Given Instructions on How to Stop Smoking: No Second Hand Smoke Exposure: No Use of substances other than those prescribed or required for medical reasons: No Substance Use Type: Caffiene Substance Use Type Other:: 2-4 cups decaf in morning Currently Displaying Signs/Symptoms of Drug Intoxication Withdrawal: No Any prior treatment program specific to substance use: No Have you been hit, kicked, punched, or otherwise hurt by someone within the past year? If so, by whom?: No Do you feel safe in your current relationship?: No Current Relationship Is there a partner from a previous relationship who is making you feel unsafe now?: No Are you made to feel afraid or neglected: No Spiritual Healthcare Practices: Spiritual [facility] Practices: Faith Advance Directives: No Advance Directives Information Provided: Yes Do you have thoughts of harming others: None Do you have a plan to hurt others: No Plan Recently lost weight without trying: No Eating poorly because of decreased appetite: No Nutrition Risks: No Nutritional Risk Patient : No : No Poor oral hygiene: No service: Yes ([employer]) Sexual orientation: Unable to collect Meds Allergies Allergy/AdvReac Type Severity Reaction Status Date / Time No Known Allergies Allergy Verified 12/30/24 11:36 Active Medications: Current Medications Acetaminophen (Acetaminophen 325 Mg Tablet) 650 mg PO Q6H PRN PRN Reason: Headache/Pain, Scale 1-10 Last Admin: 01/08/25 19:19 Dose: 650 mg Al Hydroxide/Mg Hydroxide (Magnesium Hydrox/Alum Hydrox 30 Ml Oral.Susp) 30 ml PO Q6H PRN PRN Reason: Heartburn/Nausea Ascorbic Acid (Ascorbic Acid 500 Mg Tablet) 1,000 mg PO DAILY [facility] Last Admin: 01/12/25 08:28 Dose: 1,000 mg Calcium Carbonate (Calcium Carbonate 750 Mg Tab.Chew) 750 mg PO Q6H PRN PRN Reason: Heartburn Last Admin: 01/11/25 17:51 Dose: 750 mg Clomipramine HCl (Clomipramine Hcl 25 Mg Capsule) 100 mg PO BEDTIME [facility] Last Admin: 01/12/25 20:35 Dose: 100 mg Escitalopram Oxalate (Escitalopram Oxalate 5 Mg Tablet) 5 mg PO DAILY [facility] Last Admin: 01/12/25 08:28 Dose: 5 mg Hydroxyzine HCl (Hydroxyzine Hcl 25 Mg Tablet) 25 mg PO Q6H PRN PRN Reason: mild anxiety Last Admin: 01/09/25 19:54 Dose: 25 mg Lactated Ringer's (Lr) 1,000 mls @ 50 mls/hr IVCONT .Q20H [facility] Ibuprofen (Ibuprofen 600 Mg Tablet) 600 mg PO Q6H PRN PRN Reason: BOLANOS Lorazepam (Lorazepam 1 Mg Tablet) 1 mg PO TID PRN PRN Reason: Anxiety Last Admin: 01/12/25 19:55 Dose: 1 mg Magnesium Hydroxide (Milk Of Magnesia 30 Ml Oral.Susp) 30 ml PO DAILY PRN PRN Reason: Constipation Last Admin: 01/09/25 10:48 Dose: 30 ml Mirtazapine (Mirtazapine 15 Mg Tablet) 45 mg PO BEDTIME [facility] Last Admin: 01/12/25 20:35 Dose: 45 mg Multivitamins/Vitamin C (Multivitamin Tablet) 1 tab PO DAILY [facility] Last Admin: 01/12/25 08:28 Dose: 1 tab Naloxone HCl (Naloxone Hcl 0.4 Mg/Ml Vial) 0.04 mg IVPUSH Q5M PRN PRN Reason: Excessive sedation or RR < 8 Nicotine Polacrilex (Nicotine Polacrilex 2 Mg Gum) 4 mg BUCCAL Q2H PRN PRN Reason: Nicotine Cravings Olanzapine (Olanzapine 5 Mg Tablet) 5 mg PO TID [facility] Last Admin: 01/12/25 20:34 Dose: 5 mg Ondansetron HCl (Ondansetron Odt 4 Mg Tab.Rapdis) 4 mg TRANSLINGU Q6H PRN PRN Reason: Nausea and Vomiting Last Admin: 01/04/25 20:02 Dose: 4 mg Quetiapine Fumarate (Quetiapine Fumarate 50 Mg Tablet) 50 mg PO BEDTIME PRN PRN Reason: Anxiety Last Admin: 01/06/25 23:45 Dose: 50 mg Trazodone HCl (Trazodone Hcl 50 Mg Tablet) 50 mg PO BEDTIME MRX1 PRN PRN Reason: Insomnia Last Admin: 01/11/25 22:18 Dose: 50 mg Home Medications ?Medication ?Instructions ?Recorded ?Confirmed ?Last Taken ?Type escitalopram oxalate 20 mg tablet 40 mg PO DAILY 12/30/24 12/31/24 Unknown History lorazepam 0.5 mg tablet (Ativan) 0.5 mg PO QID PRN Anxiety 12/30/24 12/31/24 Unknown History mirtazapine 45 mg tablet 45 mg PO BEDTIME 12/30/24 12/30/24 Unknown History quetiapine 25 mg tablet 25 mg PO BEDTIME PRN Anxiety 12/30/24 12/30/24 Unknown History ascorbic acid (vitamin C) 500 mg 1,000 mg PO DAILY 01/01/25 01/01/25 Unknown History tablet multivitamin 1 tab PO DAILY 01/01/25 01/01/25 Unknown History omega-3 fatty acids 500 mg capsule 1,000 mg PO DAILY 01/01/25 01/01/25 Unknown History Exam Height,Weight and Vital Signs: Height 5 ft 4 in Weight 48.172 kg Last Vital Signs Temp 97.6 F 01/13/25 06:29 Pulse 109 H 01/13/25 06:29 Resp 16 01/13/25 06:29 BP 91/63 01/13/25 06:29 Pulse Ox 98 01/13/25 06:29 O2 Del Method Room Air 01/12/25 20:23 O2 Flow Rate 5 01/11/25 08:00 Pertinent Lab Results Pertinent Lab Results: Laboratory Tests 12/30/24 12/30/24 12/31/24 11:48 12:05 19:22 WBC 6.2 RBC 4.48 Hgb 14.5 Hct 42.2 MCV 94.2 MCH 32.4 MCHC 34.4 RDW 11.9 Plt Count 293 MPV 9.5 Immature Gran % (Auto) 0.2 Neut % (Auto) 68.4 Lymph % (Auto) 24.4 Imperial % (Auto) 5.9 Eos % (Auto) 0.5 Baso % (Auto) 0.6 Lymph # (Auto) 1.5 Imperial # (Auto) 0.4 Eos # (Auto) 0.0 Baso # (Auto) 0.0 Abs Immat Gran (auto) 0.01 Absolute Neuts (auto) 4.3 Absolute Nucleated RBC 0.000 Nucleated RBC % (auto) 0.0 Sodium 140 138 Potassium 4.6 4.2 Chloride 106 104 Carbon Dioxide 29 26 Anion Gap 10 L 12 BUN 16 26 H Creatinine 0.76 0.74 Estim Creat Clear Calc 79.6 81.9 Estimated GFR > 60 > 60 Random Glucose 106 89 Calcium 9.4 9.6 Magnesium 2.2 Total Bilirubin 0.3 0.3 Direct Bilirubin 0.1 AST 20 11 ALT 21 20 Alkaline Phosphatase 57 49 Total Protein 7.6 7.0 Albumin 4.4 4.0 Triglycerides Cholesterol LDL Cholesterol, Calc HDL Cholesterol Beta HCG, Quant < 2 Urine Color Yellow Urine Appearance Cloudy Urine pH 6.0 Ur Specific [place] 1.025 Urine Protein Negative Urine Glucose (UA) Negative Urine Ketones Negative Urine Blood Negative Urine Nitrite Negative Ur Leukocyte Esterase Small (1+) H Urine RBC 0-2 Urine WBC 0-5 Ur Squamous Epith Cells >20 Urine Bacteria 2+ Hyaline Casts 0-2 Urine Test NEGATIVE Urine Opiates Screen Not Detected Ur Buprenorphine Scrn Not Detected Ur Oxycodone Screen Not Detected Urine Methadone Screen Not Detected Urine Fentanyl Screen Not Detected Ur Barbiturates Screen Not Detected Ur Phencyclidine Scrn Not Detected Ur Amphetamines Screen Not Detected U Benzodiazepines Scrn Not Detected Urine Cocaine Screen Not Detected U Marijuana (THC) Screen Not Detected Ethyl Alcohol 11 01/01/25 07:59 WBC RBC Hgb Hct MCV MCH MCHC RDW Plt Count MPV Immature Gran % (Auto) Neut % (Auto) Lymph % (Auto) Imperial % (Auto) Eos % (Auto) Baso % (Auto) Lymph # (Auto) [place] # (Auto) Eos # (Auto) Baso # (Auto) Abs Immat Gran (auto) Absolute Neuts (auto) Absolute Nucleated RBC Nucleated RBC % (auto) Sodium Potassium Chloride Carbon Dioxide Anion Gap BUN Creatinine Estim Creat Clear Calc Estimated GFR Random Glucose Calcium Magnesium Total Bilirubin Direct Bilirubin AST ALT Alkaline Phosphatase Total Protein Albumin Triglycerides 78 Cholesterol 196 LDL Cholesterol, Calc 121 H HDL Cholesterol 60 Beta HCG, Quant Urine Color Urine Appearance Urine pH Ur Specific [place] Urine Protein Urine Glucose (UA) Urine Ketones Urine Blood Urine Nitrite Ur Leukocyte Esterase Urine RBC Urine WBC Ur Squamous Epith Cells Urine Bacteria Hyaline Casts Urine Test Urine Opiates Screen Ur Buprenorphine Scrn Ur Oxycodone Screen Urine Methadone Screen Urine Fentanyl Screen Ur Barbiturates Screen Ur Phencyclidine Scrn Ur Amphetamines Screen U Benzodiazepines Scrn Urine Cocaine Screen U Marijuana (THC) Screen Ethyl Alcohol Airway Mallampati Class: II TM Dist: >3cm Neck ROM: Full Heart: rrr Lungs: cta Assessment and Plan Assessment Anesthesia Assessment: Anesthesia Plan Discussed and Chart Reviewed Final Anesthetic Review Family History of Problems with Anesthesia: No History of Problems with Anesthesia: No NPO: Yes ASA Class: III Final Preanesthetic Review: No Changes in Pt Med Stat, Meds/Allgs Chart Reviewed and Consent Obtained/Reviewed Patient Risk: Intermediate Procedure Risk: Intermediate Anesthetic Plan Anesthetic Plan: GA Disposition: Standard PACU
[2025-01-13] MEDS: Lactated Ringers 1,000 ML 50 ML IVCONT (06:55)
--- NOTE | 2025-01-13 06:59 | MHC.SHP ---
Pre-Procedural Eval Section A - 24 Hr Update-Section A only Date of Service: 01/13/25 The patient is an INPATIENT: Yes Changes since office visit: No Cold of Flu in the past 2 weeks, No New Medical Problems, No Changes in Medication and No Patient answered all questions The patient has been examined within 24 hours of the surgical procedure. The History & Physical has been completed within 30 days and I have reviewed it.: Yes Section B - Complete if H&P > 30 days Chief Complaint: Crisis Allergies: Allergies Allergy/AdvReac Type Severity Reaction Status Date / Time No Known Allergies Allergy Verified 12/30/24 11:36 Plan Diagnosis/Plan: Unchanged I have reviewed the history and physical and performed a pertinent physical examination on my patient. No changes have occurred unless specified. Time Spent With Patient Time: Total time managing care of this patient today __5__ minutes.
--- NOTE | 2025-01-13 07:37 | HO.ECTPROC ---
ECT Procedure Note Diagnosis/Treatment Date of Service: 01/13/25 Diagnosis: Major Depressive Disorder Previous ECT Date: 01/11/25 Current Treatment Number: 5 Treatment: Series Interval Clinical Notes: The patient reported less anxiety, she looks less dysphoric. No side effects from previous ECT. ECT done as usual, no complications Time: Total time managing care of this patient today ____ minutes. ECT Settings Device: THYMATRON DGx Electrode Placement: Right Unilateral Program/Pulse Width: 0.50 Energy Percent: 80 Seizure Duration By EEG (in seconds): 37 By Motor Observation (in seconds): 30 Medications Administration General Anesthetic: Etomidate (10) Muscle Relaxant: Succinylcholine (70) Ancillary Medications Anti-emetics: Zofran - Pre ECT Miscillaneous Medications: Midazolam (1 mg after ECT) Airway Management Airway Management: Bag Mask Ventilation Treatment Recommendations No Changes Recommended: No change Pt Tolerated Procedure w/o Issue: Yes
[2025-01-13] MEDS: Ascorbic Acid 500 MG TABLET 1000 MG PO (08:46)
[2025-01-13] MEDS: Multivitamin TABLET 1 TAB PO (08:47)
[2025-01-13] MEDS: Escitalopram Oxalate 5 MG TABLET PO (08:47)
[2025-01-13] MEDS: OLANZapine 5 MG TABLET PO ×2 (08:47→19:59)
--- NOTE | 2025-01-13 14:34 | P.PNPSI_ITS ---
Subjective Subjective Date of Service: 01/13/25 Reason For Visit: Crisis Interim History: post-ECT. mood improved, anxiety down. feeling a little tired. grandmother visited today. states it is OK if i speak with her mother. sleeping well. agreeable to DC lexapro. per staff, flat. taking meds. refused afternoon zyprexa. slept 7 hours. ECT went well this morning. Mental Status Exam Mental Status Exam Narrative: Pt is alert and oriented; behavior is cooperative, calm; dressed adequately, adequately groomed; mood is fine and affect constricted and hypo-intense; eye contact appropriate; Speech is normal rate, loudness and prosody and not pressured; psychomotor retardation present; thought process is organized and goal directed; Thought content is on improvement; no SI/HI/AVH expressed. Patients insight and judgment improving. Diagnostics Vital Signs (24Hr): Vital Signs - 24 hr 01/12/25 20:23 01/13/25 06:29 01/13/25 06:52 Temperature 97.8 F 97.6 F 98.7 F Pulse Rate 81 109 H 94 Respiratory Rate 16 16 15 Blood Pressure 94/61 91/63 109/65 Pulse Oximetry 98 98 100 Oxygen Delivery Method Room Air Nasal Cannula with ETCO2 Oxygen Flow Rate 2 01/13/25 07:44 01/13/25 07:45 01/13/25 07:50 Temperature 98.3 F Pulse Rate 64 104 H 102 H Respiratory Rate 16 16 16 Blood Pressure 116/78 131/76 130/79 Pulse Oximetry 99 99 99 Oxygen Delivery Method Nasal Cannula with ETCO2 Nasal Cannula with ETCO2 Nasal Cannula with ETCO2 Oxygen Flow Rate 2 2 2 01/13/25 07:55 01/13/25 08:05 01/13/25 08:20 Temperature Pulse Rate 106 H 112 H 115 H Respiratory Rate 14 14 14 Blood Pressure 125/68 115/67 108/61 Pulse Oximetry 99 99 98 Oxygen Delivery Method Nasal Cannula with ETCO2 Nasal Cannula with ETCO2 Room Air Oxygen Flow Rate 2 2 01/13/25 08:50 01/13/25 08:51 Temperature 97 F 97 F Pulse Rate 105 H 105 H Respiratory Rate 16 16 Blood Pressure 97/67 97/67 Pulse Oximetry 99 99 Oxygen Delivery Method Room Air Oxygen Flow Rate BMI result Body Mass Index 18.2 Labs 12/30/24 12:05 12/31/24 19:22 Medications Medications Current Medications Acetaminophen (Acetaminophen 325 Mg Tablet) 650 mg PO Q6H PRN PRN Reason: Headache/Pain, Scale 1-10 Last Admin: 01/08/25 19:19 Dose: 650 mg Al Hydroxide/Mg Hydroxide (Magnesium Hydrox/Alum Hydrox 30 Ml Oral.Susp) 30 ml PO Q6H PRN PRN Reason: Heartburn/Nausea Ascorbic Acid (Ascorbic Acid 500 Mg Tablet) 1,000 mg PO DAILY [facility] Last Admin: 01/13/25 08:46 Dose: 1,000 mg Calcium Carbonate (Calcium Carbonate 750 Mg Tab.Chew) 750 mg PO Q6H PRN PRN Reason: Heartburn Last Admin: 01/11/25 17:51 Dose: 750 mg Clomipramine HCl (Clomipramine Hcl 25 Mg Capsule) 100 mg PO BEDTIME [facility] Last Admin: 01/12/25 20:35 Dose: 100 mg Escitalopram Oxalate (Escitalopram Oxalate 5 Mg Tablet) 5 mg PO DAILY [facility] Last Admin: 01/13/25 08:47 Dose: 5 mg Hydroxyzine HCl (Hydroxyzine Hcl 25 Mg Tablet) 25 mg PO Q6H PRN PRN Reason: mild anxiety Last Admin: 01/09/25 19:54 Dose: 25 mg Ibuprofen (Ibuprofen 600 Mg Tablet) 600 mg PO Q6H PRN PRN Reason: BOLANOS Lorazepam (Lorazepam 1 Mg Tablet) 1 mg PO TID PRN PRN Reason: Anxiety Last Admin: 01/12/25 19:55 Dose: 1 mg Magnesium Hydroxide (Milk Of Magnesia 30 Ml Oral.Susp) 30 ml PO DAILY PRN PRN Reason: Constipation Last Admin: 01/09/25 10:48 Dose: 30 ml Mirtazapine (Mirtazapine 15 Mg Tablet) 45 mg PO BEDTIME [facility] Last Admin: 01/12/25 20:35 Dose: 45 mg Multivitamins/Vitamin C (Multivitamin Tablet) 1 tab PO DAILY [facility] Last Admin: 01/13/25 08:47 Dose: 1 tab Nicotine Polacrilex (Nicotine Polacrilex 2 Mg Gum) 4 mg BUCCAL Q2H PRN PRN Reason: Nicotine Cravings Olanzapine (Olanzapine 5 Mg Tablet) 5 mg PO TID [facility] Last Admin: 01/13/25 14:16 Dose: Not Given Ondansetron HCl (Ondansetron Odt 4 Mg Tab.Rapdis) 4 mg TRANSLINGU Q6H PRN PRN Reason: Nausea and Vomiting Last Admin: 01/04/25 20:02 Dose: 4 mg Quetiapine Fumarate (Quetiapine Fumarate 50 Mg Tablet) 50 mg PO BEDTIME PRN PRN Reason: Anxiety Last Admin: 01/06/25 23:45 Dose: 50 mg Trazodone HCl (Trazodone Hcl 50 Mg Tablet) 50 mg PO BEDTIME MRX1 PRN PRN Reason: Insomnia Last Admin: 01/11/25 22:18 Dose: 50 mg Allergies Allergies Allergy/AdvReac Type Severity Reaction Status Date / Time No Known Allergies Allergy Verified 12/30/24 11:36 Assessment & Plan Assessment & Plan (1) Major depressive disorder, recurrent severe without psychotic features: Status: Acute Code(s): F33.2 - Major depressive disorder, recurrent severe without psychotic features (2) Acute anxiety: Status: Acute Code(s): F41.9 - Anxiety disorder, unspecified Plan Plan Patient is a 39-year-old female, [employer] , with history of MDD, VENKAT, who presents for worsening and overwhelming anxiety and hopes to get ECT treatment. Patient reports depression and anxiety since teenage years. It has worsened significantly over the last year to the point where she has become debilitated; a constant stressor is her house in [place] remaining on the market, unsold; subsequently she has been living with her parents. Patient's depression has been significant and she endorses diminished interest, excessive guilt, low energy, poor concentration, having a force herself to shower... [facility] was [facility] to [facility] and patient had 1 session this Saturday however her anxiety and depression became so overwhelming these past few days to the point where she could not stop crying or pacing the solorzano that she felt unable to wait the full 30 days it takes for T MS to be effective; patient has consistent thoughts that life is not worth living; she says she will not actively take her own life but wishes she would just not wake up. Patient says I feel out of my mind... Patient called providers at the [facility] told her to come to the emergency room. Patient endorses history of trauma but does not disclose; says she has been diagnosed with VENKAT as well as depression. Denies history of any manic episodes or behaviors; no drug or alcohol abuse formulation/clinical reasoning: hx of depression, with limited treatment results, though with limited med trials (effexor, abilify/brexpiprazole- tremors; lexapro, mirtazpine). She is overwhelmed with anxiety and depression -dx of VENKAT? Presents for ECT -will taper off lexapro and mirtazpine as she's been on high doses of both for months with no results. -agrees to start Clomipramine and ECT; discussed lithium but she had some reservations PlAN: cv q15 start Clomipramine 25mg lower Lexapro to 20mg (has been on 40mg for few months) continue MIrtazapine 45mg (will taper) Zyrpexa prn for anxiety/agitation ECT for saturday NPO 01/02: Increase Seroquel to 50 mg HS. Continue current management and treatment plan. ECT Wednesday 01/03: Increase Ativan to 1 mg TID. Hold after 8 PM on nights prior to ECT. 01/04: ECT #1 completed. BOLANOS, memory impairment immediately after. anxious. continue current mgmt. 01/05: calm, cooperative. incr anafranil to 50 mg QHS, decrease lexapro to 15 mg daily. ECT tomorrow, NPO p MN. 01/06: completed ECT #2 without incident. no s/e from medications, reduced s/e from ECT. continue current mgmt. 01/07: remains depressed and anxious. increase clomipramine to 75 mg QHS, decrease lexapro to 10 daily. ECT in the morning. 01/08: completed ECT #3 without incident today. continue current mgmt through saturday, plan to progress in anafranil/lexapro cross-taper on saturday. 01/09 keep same treatment. 01/10 keep same treatment 01/11: less anxious and depressed. focused on improvement, not worries today. ECT #4 completed without incident this morning. increase anafranil to 100 mg tonight and decrease lexapro to 5 mg tomorrow morning. planning to remain in hospital for entire course. 01/13: ECT #5 completed today. mood fine, not depressed, anxiety down. complete ECT #6 on saturday and decide if course should be completed then or further treatments done next week. DC lexapro. Reason for continued inpatient stay Substantial Risk for: harm to self, inability to function and rapid decompensation Time Spent With Patient Time: Total time managing care of this patient today __35__ minutes.
[2025-01-13] MEDS: clomiPRAMINE HCl 25 MG CAPSULE 100 MG PO (19:58)
[2025-01-13] MEDS: Mirtazapine 15 MG TABLET 45 MG PO (19:58)
[2025-01-14 07:00] VITALS: BMI 18.6
[2025-01-14 07:40] VITALS: BP 101/57; PULSE 92; RESP 16; TEMP 36.3; O2SAT 99
[2025-01-14] MEDS: OLANZapine 5 MG TABLET PO (08:33)
[2025-01-14] MEDS: Multivitamin TABLET 1 TAB PO (08:33)
[2025-01-14] MEDS: Ascorbic Acid 500 MG TABLET 1000 MG PO (08:33)
--- NOTE | 2025-01-14 12:02 | P.PNPSI_ITS ---
Subjective Subjective Date of Service: 01/14/25 Reason For Visit: Crisis Interim History: Appears confused. guarded. flat affect. Patient responding to questions with short answers; reports feeling okay ; staring at T/W during assessment and tilting head side to side; when asked what she was doing, pt smiled and did not respond. Dr. Crawford decreased Zyprexa to 2.5mg PO TID and placed ECT on hold d/t possible ECT delirium. Mental Status Exam Mental Status Exam Patient Appearance: Appropriate Patient Orientation: Person, Place, Time and Situation Level of Consciousness: Awake and Alert Patient Behavior: Guarded and Confused Mood Description: Blunted Affect Description: Flat Ability to Follow Directions: Good Speech Pattern: Clear Hallucinations: None Delusions: Not Present Thought Process: Slowed Thinking Thought Content: positive for Slowed Thinking Diagnostics Vital Signs (24Hr): Vital Signs - 24 hr 01/13/25 20:00 01/14/25 07:40 Temperature 98.3 F 97.4 F Pulse Rate 96 92 Respiratory Rate 16 16 Blood Pressure 92/55 L 101/57 L Pulse Oximetry 97 99 Oxygen Delivery Method Room Air Room Air BMI result Body Mass Index 18.6 Labs 01/14/25 14:07 01/14/25 14:07 Medications Medications Current Medications Acetaminophen (Acetaminophen 325 Mg Tablet) 650 mg PO Q6H PRN PRN Reason: Headache/Pain, Scale 1-10 Last Admin: 01/08/25 19:19 Dose: 650 mg Al Hydroxide/Mg Hydroxide (Magnesium Hydrox/Alum Hydrox 30 Ml Oral.Susp) 30 ml PO Q6H PRN PRN Reason: Heartburn/Nausea Ascorbic Acid (Ascorbic Acid 500 Mg Tablet) 1,000 mg PO DAILY [facility] Last Admin: 01/14/25 08:33 Dose: 1,000 mg Calcium Carbonate (Calcium Carbonate 750 Mg Tab.Chew) 750 mg PO Q6H PRN PRN Reason: Heartburn Last Admin: 01/11/25 17:51 Dose: 750 mg Clomipramine HCl (Clomipramine Hcl 25 Mg Capsule) 100 mg PO BEDTIME [facility] Last Admin: 01/13/25 19:58 Dose: 100 mg Hydroxyzine HCl (Hydroxyzine Hcl 25 Mg Tablet) 25 mg PO Q6H PRN PRN Reason: mild anxiety Last Admin: 01/09/25 19:54 Dose: 25 mg Ibuprofen (Ibuprofen 600 Mg Tablet) 600 mg PO Q6H PRN PRN Reason: BOLANOS Lorazepam (Lorazepam 1 Mg Tablet) 1 mg PO TID PRN PRN Reason: Anxiety Last Admin: 01/12/25 19:55 Dose: 1 mg Magnesium Hydroxide (Milk Of Magnesia 30 Ml Oral.Susp) 30 ml PO DAILY PRN PRN Reason: Constipation Last Admin: 01/09/25 10:48 Dose: 30 ml Mirtazapine (Mirtazapine 15 Mg Tablet) 45 mg PO BEDTIME [facility] Last Admin: 01/13/25 19:58 Dose: 45 mg Multivitamins/Vitamin C (Multivitamin Tablet) 1 tab PO DAILY BRE[facility] Last Admin: 01/14/25 08:33 Dose: 1 tab Nicotine Polacrilex (Nicotine Polacrilex 2 Mg Gum) 4 mg BUCCAL Q2H PRN PRN Reason: Nicotine Cravings Olanzapine (Olanzapine 5 Mg Tablet) 5 mg PO TID BREA Last Admin: 01/14/25 08:33 Dose: 5 mg Ondansetron HCl (Ondansetron Odt 4 Mg Tab.Rapdis) 4 mg TRANSLINGU Q6H PRN PRN Reason: Nausea and Vomiting Last Admin: 01/04/25 20:02 Dose: 4 mg Quetiapine Fumarate (Quetiapine Fumarate 50 Mg Tablet) 50 mg PO BEDTIME PRN PRN Reason: Anxiety Last Admin: 01/06/25 23:45 Dose: 50 mg Trazodone HCl (Trazodone Hcl 50 Mg Tablet) 50 mg PO BEDTIME MRX1 PRN PRN Reason: Insomnia Last Admin: 01/11/25 22:18 Dose: 50 mg Allergies Allergies Allergy/AdvReac Type Severity Reaction Status Date / Time No Known Allergies Allergy Verified 12/30/24 11:36 Assessment & Plan Assessment & Plan (1) Major depressive disorder, recurrent severe without psychotic features: Status: Acute Code(s): F33.2 - Major depressive disorder, recurrent severe without psychotic features (2) Acute anxiety: Status: Acute Code(s): F41.9 - Anxiety disorder, unspecified Plan Plan Patient is a 39-year-old female, [employer] , with history of MDD, VENKAT, who presents for worsening and overwhelming anxiety and hopes to get ECT treatment. Patient reports depression and anxiety since teenage years. It has worsened significantly over the last year to the point where she has become debilitated; a constant stressor is her house in [place] remaining on the market, unsold; subsequently she has been living with her parents. Patient's depression has been significant and she endorses diminished interest, excessive guilt, low energy, poor concentration, having a force herself to shower... [facility] to [facility] and patient had 1 session this Saturday however her anxiety and depression became so overwhelming these past few days to the point where she could not stop crying or pacing the solrozano that she felt unable to wait the full 30 days it takes for T MS to be effective; patient has consistent thoughts that life is not worth living; she says she will not actively take her own life but wishes she would just not wake up. Patient says I feel out of my mind... Patient called providers at the [facility] told her to come to the emergency room. Patient endorses history of trauma but does not disclose; says she has been diagnosed with VENKAT as well as depression. Denies history of any manic episodes or behaviors; no drug or alcohol abuse formulation/clinical reasoning: hx of depression, with limited treatment results, though with limited med trials (effexor, abilify/brexpiprazole- tremors; lexapro, mirtazpine). She is overwhelmed with anxiety and depression -dx of VENKAT? Presents for ECT -will taper off lexapro and mirtazpine as she's been on high doses of both for months with no results. -agrees to start Clomipramine and ECT; discussed lithium but she had some reservations PlAN: cv q15 start Clomipramine 25mg lower Lexapro to 20mg (has been on 40mg for few months) continue MIrtazapine 45mg (will taper) Zyrpexa prn for anxiety/agitation ECT for saturday NPO 01/02: Increase Seroquel to 50 mg HS. Continue current management and treatment plan. ECT Wednesday 01/03: Increase Ativan to 1 mg TID. Hold after 8 PM on nights prior to ECT. 01/04: ECT #1 completed. BOLANOS, memory impairment immediately after. anxious. continue current mgmt. 01/05: calm, cooperative. incr anafranil to 50 mg QHS, decrease lexapro to 15 mg daily. ECT tomorrow, NPO p MN. 01/06: completed ECT #2 without incident. no s/e from medications, reduced s/e from ECT. continue current mgmt. 01/07: remains depressed and anxious. increase clomipramine to 75 mg QHS, decrease lexapro to 10 daily. ECT in the morning. 01/08: completed ECT #3 without incident today. continue current mgmt through saturday, plan to progress in anafranil/lexapro cross-taper on saturday. 01/09 keep same treatment. 01/10 keep same treatment 01/11: less anxious and depressed. focused on improvement, not worries today. ECT #4 completed without incident this morning. increase anafranil to 100 mg tonight and decrease lexapro to 5 mg tomorrow morning. planning to remain in hospital for entire course. 01/13: ECT #5 completed today. mood fine, not depressed, anxiety down. complete ECT #6 on saturday and decide if course should be completed then or further treatments done next week. DC lexapro. 01/14: Appears confused. guarded. flat affect. Patient responding to questions with short answers; reports feeling okay ; staring at T/W during assessment and tilting head side to side; when asked what she was doing, pt smiled and did not respond. Dr. Crawford decreased Zyprexa to 2.5mg PO TID and placed ECT on hold d/t possible ECT delirium. Reason for continued inpatient stay Substantial Risk for: med/psych decompensation Time Spent With Patient Time: Total time managing care of this patient today _20___ minutes.
[2025-01-14 14:28] LABS: MANUAL DIFF FLAG NO
[2025-01-14 14:31] LABS: Basophils Absolute Auto 0.1 X10*3/uL (0.0-0.2); Basophils Percent Auto 1.1 % (0-2); Eosinophils Absolute Auto 0.2 X10*3/uL (0.0-0.4); Eosinophils Percent Auto 2.9 % (0-4); Hemoglobin 13.7 g/dl (12.0-16.0); Imm Gran Abs Auto 0.03 X10*3/uL (0.00-0.03); Imm Gran Pct Auto 0.5 % (0.0-0.4); Lymphocytes Absolute Auto 2.1 X10*3/uL (1.2-4.9); Lymphocytes Percent Auto 34.9 % (20-40); Mean Corpuscular HGB Conc 34.3 g/dl (31.0-35.0); Mean Corpuscular Hemoglobin 32.2 pg (27.0-33.0); Mean Corpuscular Volume 93.9 fL (80.0-98.0); Mean Platelet Volume 8.9 fL (9.4-12.3); Monocytes Absolute Auto 0.5 X10*3/uL (0.1-1.2); Monocytes Percent Auto 8.8 % (2-11); Neutrophils Absolute Auto 3.2 x10*3/uL (2.0-8.3); Neutrophils Percent Auto 51.8 % (45-73); Platelet Count 412 X10*3/uL (160-400); Red Blood Count 4.26 X10*6/uL (4.20-5.50); Red Cell Distribution Width 11.9 % (11.0-16.0); White Blood Count 6.1 X10*3/uL (4.8-10.8)
[2025-01-14 14:44] LABS: Appearance Urine Clear; Color Urine Yellow; Glucose Urine UA Negative (Negative); Leukocyte Esterase Urine Negative (Negative); Nitrite Urine Negative (Negative); PH 6.5 (5.0-9.0); Specific Gravity - Urine 1.015 (1.005-1.025); Urine Blood Negative (Negative); Urine Ketones Negative (Negative); Urine Protein Negative (Neg-Trace)
[2025-01-14 15:08] LABS: Alanine Aminotransferase 38 U/L (0-31); Albumin Level 3.8 g/dL (3.5-5.0); Alkaline Phosphatase 54 U/L (39-117); Anion Gap 11 (12-20); Aspartate Amino Transferase 20 U/L (5-31); Bilirubin Total 0.2 mg/dL (0.0-1.0); Blood Urea Nitrogen 20 mg/dL (9-16); Calcium 9.3 mg/dL (8.4-10.2); Carbon Dioxide 29 mmol/L (22-29); Chloride 105 mmol/L (96-108); Creatinine Clr Calc Pharmacy 58.1; Estimated Glomerular Filt Rate > 60; Glucose Random 89 mg/dL (60-115); Potassium 4.3 mmol/L (3.3-5.1); Sodium 141 mmol/L (135-145); Total Protein 7.1 g/dL (6.5-8.0)
[2025-01-14] MEDS: OLANZapine 2.5 MG TABLET PO ×2 (15:09→20:11)
[2025-01-14 20:00] VITALS: BP 97/67; PULSE 82; RESP 16; TEMP 36.9; O2SAT 97
[2025-01-14] MEDS: clomiPRAMINE HCl 25 MG CAPSULE 100 MG PO (20:10)
[2025-01-14] MEDS: Mirtazapine 15 MG TABLET 45 MG PO (20:10)
[2025-01-15 08:00] VITALS: BP 97/56; PULSE 104; RESP 16; TEMP 36.8; O2SAT 97
[2025-01-15] MEDS: Ascorbic Acid 500 MG TABLET 1000 MG PO (08:27)
[2025-01-15] MEDS: OLANZapine 2.5 MG TABLET PO ×3 (08:28→20:28)
[2025-01-15] MEDS: Multivitamin TABLET 1 TAB PO (08:28)
[2025-01-15] MEDS: Thiamine HCL 100 MG TABLET PO (11:37)
--- NOTE | 2025-01-15 14:24 | P.PNPSI_ITS ---
Subjective Subjective Date of Service: 01/15/25 Reason For Visit: Crisis Interim History: calm, cooperative. upon asking as to her general well-being, pt starts out by saying she is experiencing memory impairment from ECT. notes others had described cognitive deficits in her recently and begins cognitive exam. unable to name the city or facility we are in. states it is january 2025, doesn't know the day of the week, the date. asserts the season is fall. knows her name and . per collateral from staff, pt has presented a mixed picture this morning, with one staff having the same experience as this clinical writer and another staff noting pt appeared largely oriented and without major cognitive deficits.per RN report for the past 24H, pt has exhibited increased RUFUS, confusion, wandering into others' rooms, eating in the dark. slept 8 hours. still disoriented this morning. Mental Status Exam Mental Status Exam Patient Appearance: Appropriate Patient Orientation: Person, Place, Time and Situation Level of Consciousness: Awake and Alert Patient Behavior: Guarded and Confused Mood Description: Blunted Affect Description: Flat Ability to Follow Directions: Good Speech Pattern: Clear Hallucinations: None Delusions: Not Present Thought Process: Slowed Thinking Thought Content: positive for Slowed Thinking Diagnostics Vital Signs (24Hr): Vital Signs - 24 hr 01/14/25 20:00 01/15/25 08:00 Temperature 98.5 F 98.2 F Pulse Rate 82 104 H Respiratory Rate 16 16 Blood Pressure 97/67 97/56 L Pulse Oximetry 97 97 Oxygen Delivery Method Room Air Room Air BMI result Body Mass Index 18.6 Labs 01/14/25 14:07 01/14/25 14:07 Labs: Laboratory Results - last 48 hr 01/14/25 01/14/25 14:07 14:30 WBC 6.1 RBC 4.26 Hgb 13.7 Hct 40.0 MCV 93.9 MCH 32.2 MCHC 34.3 RDW 11.9 Plt Count 412 H D MPV 8.9 L Immature Gran % (Auto) 0.5 H Neut % (Auto) 51.8 Lymph % (Auto) 34.9 [place] % (Auto) 8.8 Eos % (Auto) 2.9 Baso % (Auto) 1.1 Lymph # (Auto) 2.1 [place] # (Auto) 0.5 Eos # (Auto) 0.2 Baso # (Auto) 0.1 Abs Immat Gran (auto) 0.03 Absolute Neuts (auto) 3.2 Absolute Nucleated RBC 0.000 Nucleated RBC % (auto) 0.0 Sodium 141 Potassium 4.3 Chloride 105 Carbon Dioxide 29 Anion Gap 11 L BUN 20 H Creatinine 1.01 Estim Creat Clear Calc 58.1 Estimated GFR > 60 Random Glucose 89 Calcium 9.3 Total Bilirubin 0.2 AST 20 ALT 38 H Alkaline Phosphatase 54 Total Protein 7.1 Albumin 3.8 Urine Color Yellow Urine Appearance Clear Urine pH 6.5 Ur Specific [place] 1.015 Urine Protein Negative Urine Glucose (UA) Negative Urine Ketones Negative Urine Blood Negative Urine Nitrite Negative Ur Leukocyte Esterase Negative Medications Medications Current Medications Acetaminophen (Acetaminophen 325 Mg Tablet) 650 mg PO Q6H PRN PRN Reason: Headache/Pain, Scale 1-10 Last Admin: 01/08/25 19:19 Dose: 650 mg Al Hydroxide/Mg Hydroxide (Magnesium Hydrox/Alum Hydrox 30 Ml Oral.Susp) 30 ml PO Q6H PRN PRN Reason: Heartburn/Nausea Ascorbic Acid (Ascorbic Acid 500 Mg Tablet) 1,000 mg PO DAILY [facility] Last Admin: 01/15/25 08:27 Dose: 1,000 mg Calcium Carbonate (Calcium Carbonate 750 Mg Tab.Chew) 750 mg PO Q6H PRN PRN Reason: Heartburn Last Admin: 01/11/25 17:51 Dose: 750 mg Clomipramine HCl (Clomipramine Hcl 25 Mg Capsule) 100 mg PO BEDTIME [facility] Last Admin: 01/14/25 20:10 Dose: 100 mg Hydroxyzine HCl (Hydroxyzine Hcl 25 Mg Tablet) 25 mg PO Q6H PRN PRN Reason: mild anxiety Last Admin: 01/09/25 19:54 Dose: 25 mg Ibuprofen (Ibuprofen 600 Mg Tablet) 600 mg PO Q6H PRN PRN Reason: BOLANOS Lorazepam (Lorazepam 1 Mg Tablet) 1 mg PO TID PRN PRN Reason: Anxiety Last Admin: 01/12/25 19:55 Dose: 1 mg Magnesium Hydroxide (Milk Of Magnesia 30 Ml Oral.Susp) 30 ml PO DAILY PRN PRN Reason: Constipation Last Admin: 01/09/25 10:48 Dose: 30 ml Mirtazapine (Mirtazapine 15 Mg Tablet) 45 mg PO BEDTIME [facility] Last Admin: 01/14/25 20:10 Dose: 45 mg Multivitamins/Vitamin C (Multivitamin Tablet) 1 tab PO DAILY [facility] Last Admin: 01/15/25 08:28 Dose: 1 tab Nicotine Polacrilex (Nicotine Polacrilex 2 Mg Gum) 4 mg BUCCAL Q2H PRN PRN Reason: Nicotine Cravings Olanzapine (Olanzapine 2.5 Mg Tablet) 2.5 mg PO TID [facility] Last Admin: 01/15/25 08:28 Dose: 2.5 mg Ondansetron HCl (Ondansetron Odt 4 Mg Tab.Rapdis) 4 mg TRANSLINGU Q6H PRN PRN Reason: Nausea and Vomiting Last Admin: 01/04/25 20:02 Dose: 4 mg Quetiapine Fumarate (Quetiapine Fumarate 50 Mg Tablet) 50 mg PO BEDTIME PRN PRN Reason: Anxiety Last Admin: 01/06/25 23:45 Dose: 50 mg Thiamine HCl (Thiamine Hcl 100 Mg Tablet) 100 mg PO DAILY [facility] Last Admin: 01/15/25 11:37 Dose: 100 mg Trazodone HCl (Trazodone Hcl 50 Mg Tablet) 50 mg PO BEDTIME MRX1 PRN PRN Reason: Insomnia Last Admin: 01/11/25 22:18 Dose: 50 mg Allergies Allergies Allergy/AdvReac Type Severity Reaction Status Date / Time No Known Allergies Allergy Verified 12/30/24 11:36 Assessment & Plan Assessment & Plan (1) Major depressive disorder, recurrent severe without psychotic features: Status: Acute Code(s): F33.2 - Major depressive disorder, recurrent severe without psychotic features (2) Acute anxiety: Status: Acute Code(s): F41.9 - Anxiety disorder, unspecified Plan Plan Patient is a 39-year-old female, [employer] , with history of MDD, VENKAT, who presents for worsening and overwhelming anxiety and hopes to get ECT treatment. Patient reports depression and anxiety since teenage years. It has worsened significantly over the last year to the point where she has become debilitated; a constant stressor is her house in [place] remaining on the market, unsold; subsequently she has been living with her parents. Patient's depression has been significant and she endorses diminished interest, excessive guilt, low energy, poor concentration, having a force herself to shower... She was sent from [facility] to start [facility] and patient had 1 session this Saturday however her anxiety and depression became so overwhelming these past few days to the point where she could not stop crying or pacing the solorzano that she felt unable to wait the full 30 days it takes for T MS to be effective; patient has consistent thoughts that life is not worth living; she says she will not actively take her own life but wishes she would just not wake up. Patient says I feel out of my mind... Patient called providers at the [facility] told her to come to the emergency room. Patient endorses history of trauma but does not disclose; says she has been diagnosed with VENKAT as well as depression. Denies history of any manic episodes or behaviors; no drug or alcohol abuse formulation/clinical reasoning: hx of depression, with limited treatment results, though with limited med trials (effexor, abilify/brexpiprazole- tremors; lexapro, mirtazpine). She is overwhelmed with anxiety and depression -dx of VENKAT? Presents for ECT -will taper off lexapro and mirtazpine as she's been on high doses of both for months with no results. -agrees to start Clomipramine and ECT; discussed lithium but she had some reservations PlAN: cv q15 start Clomipramine 25mg lower Lexapro to 20mg (has been on 40mg for few months) continue MIrtazapine 45mg (will taper) Zyrpexa prn for anxiety/agitation ECT for saturday NPO 01/02: Increase Seroquel to 50 mg HS. Continue current management and treatment plan. ECT Wednesday 01/03: Increase Ativan to 1 mg TID. Hold after 8 PM on nights prior to ECT. 01/04: ECT #1 completed. BOLANOS, memory impairment immediately after. anxious. continue current mgmt. 01/05: calm, cooperative. incr anafranil to 50 mg QHS, decrease lexapro to 15 mg daily. ECT tomorrow, NPO p MN. 01/06: completed ECT #2 without incident. no s/e from medications, reduced s/e from ECT. continue current mgmt. 01/07: remains depressed and anxious. increase clomipramine to 75 mg QHS, decrease lexapro to 10 daily. ECT in the morning. 01/08: completed ECT #3 without incident today. continue current mgmt through saturday, plan to progress in anafranil/lexapro cross-taper on saturday. 01/09 keep same treatment. 01/10 keep same treatment 01/11: less anxious and depressed. focused on improvement, not worries today. ECT #4 completed without incident this morning. increase anafranil to 100 mg tonight and decrease lexapro to 5 mg tomorrow morning. planning to remain in hospital for entire course. 01/13: ECT #5 completed today. mood fine, not depressed, anxiety down. complete ECT #6 on saturday and decide if course should be completed then or further treatments done next week. DC lexapro. 01/14: Appears confused. guarded. flat affect. Patient responding to questions with short answers; reports feeling okay ; staring at T/W during assessment and tilting head side to side; when asked what she was doing, pt smiled and did not respond. Dr. Crawford decreased Zyprexa to 2.5mg PO TID and placed ECT on hold d/t possible ECT delirium. 01/15: remains delirious today, with some unexpected responses such as knowing the month is january yet asserting the season is fall. will continue current mgmt and observe over w/e. next ECT scheduled for saturday, may be canceled saturday depending on MSE. case discussed with pt's mother for 20 minutes. Reason for continued inpatient stay Substantial Risk for: inability to function Time Spent With Patient Time: Total time managing care of this patient today __55__ minutes.
--- NOTE | 2025-01-15 14:53 | P.PNPSI_ITS ---
Subjective Subjective Reason For Visit: Crisis Diagnostics Vital Signs (24Hr): Vital Signs - 24 hr 01/14/25 20:00 01/15/25 08:00 Temperature 98.5 F 98.2 F Pulse Rate 82 104 H Respiratory Rate 16 16 Blood Pressure 97/67 97/56 L Pulse Oximetry 97 97 Oxygen Delivery Method Room Air Room Air BMI result Body Mass Index 18.6 Labs 01/14/25 14:07 01/14/25 14:07 Labs: Laboratory Results - last 48 hr 01/14/25 01/14/25 14:07 14:30 WBC 6.1 RBC 4.26 Hgb 13.7 Hct 40.0 MCV 93.9 MCH 32.2 MCHC 34.3 RDW 11.9 Plt Count 412 H D MPV 8.9 L Immature Gran % (Auto) 0.5 H Neut % (Auto) 51.8 Lymph % (Auto) 34.9 [place] % (Auto) 8.8 Eos % (Auto) 2.9 Baso % (Auto) 1.1 Lymph # (Auto) 2.1 [place] # (Auto) 0.5 Eos # (Auto) 0.2 Baso # (Auto) 0.1 Abs Immat Gran (auto) 0.03 Absolute Neuts (auto) 3.2 Absolute Nucleated RBC 0.000 Nucleated RBC % (auto) 0.0 Sodium 141 Potassium 4.3 Chloride 105 Carbon Dioxide 29 Anion Gap 11 L BUN 20 H Creatinine 1.01 Estim Creat Clear Calc 58.1 Estimated GFR > 60 Random Glucose 89 Calcium 9.3 Total Bilirubin 0.2 AST 20 ALT 38 H Alkaline Phosphatase 54 Total Protein 7.1 Albumin 3.8 Urine Color Yellow Urine Appearance Clear Urine pH 6.5 Ur Specific [place] 1.015 Urine Protein Negative Urine Glucose (UA) Negative Urine Ketones Negative Urine Blood Negative Urine Nitrite Negative Ur Leukocyte Esterase Negative Medications Medications Current Medications Acetaminophen (Acetaminophen 325 Mg Tablet) 650 mg PO Q6H PRN PRN Reason: Headache/Pain, Scale 1-10 Last Admin: 01/08/25 19:19 Dose: 650 mg Al Hydroxide/Mg Hydroxide (Magnesium Hydrox/Alum Hydrox 30 Ml Oral.Susp) 30 ml PO Q6H PRN PRN Reason: Heartburn/Nausea Ascorbic Acid (Ascorbic Acid 500 Mg Tablet) 1,000 mg PO DAILY BREA Last Admin: 01/15/25 08:27 Dose: 1,000 mg Calcium Carbonate (Calcium Carbonate 750 Mg Tab.Chew) 750 mg PO Q6H PRN PRN Reason: Heartburn Last Admin: 01/11/25 17:51 Dose: 750 mg Clomipramine HCl (Clomipramine Hcl 25 Mg Capsule) 100 mg PO BEDTIME BREA Last Admin: 01/14/25 20:10 Dose: 100 mg Hydroxyzine HCl (Hydroxyzine Hcl 25 Mg Tablet) 25 mg PO Q6H PRN PRN Reason: mild anxiety Last Admin: 01/09/25 19:54 Dose: 25 mg Ibuprofen (Ibuprofen 600 Mg Tablet) 600 mg PO Q6H PRN PRN Reason: BOLANOS Lorazepam (Lorazepam 1 Mg Tablet) 1 mg PO TID PRN PRN Reason: Anxiety Last Admin: 01/12/25 19:55 Dose: 1 mg Magnesium Hydroxide (Milk Of Magnesia 30 Ml Oral.Susp) 30 ml PO DAILY PRN PRN Reason: Constipation Last Admin: 01/09/25 10:48 Dose: 30 ml Mirtazapine (Mirtazapine 15 Mg Tablet) 45 mg PO BEDTIME BREA Last Admin: 01/14/25 20:10 Dose: 45 mg Multivitamins/Vitamin C (Multivitamin Tablet) 1 tab PO DAILY [facility] Last Admin: 01/15/25 08:28 Dose: 1 tab Nicotine Polacrilex (Nicotine Polacrilex 2 Mg Gum) 4 mg BUCCAL Q2H PRN PRN Reason: Nicotine Cravings Olanzapine (Olanzapine 2.5 Mg Tablet) 2.5 mg PO TID BREA Last Admin: 01/15/25 08:28 Dose: 2.5 mg Ondansetron HCl (Ondansetron Odt 4 Mg Tab.Rapdis) 4 mg TRANSLINGU Q6H PRN PRN Reason: Nausea and Vomiting Last Admin: 01/04/25 20:02 Dose: 4 mg Quetiapine Fumarate (Quetiapine Fumarate 50 Mg Tablet) 50 mg PO BEDTIME PRN PRN Reason: Anxiety Last Admin: 01/06/25 23:45 Dose: 50 mg Thiamine HCl (Thiamine Hcl 100 Mg Tablet) 100 mg PO DAILY [facility] Last Admin: 01/15/25 11:37 Dose: 100 mg Trazodone HCl (Trazodone Hcl 50 Mg Tablet) 50 mg PO BEDTIME MRX1 PRN PRN Reason: Insomnia Last Admin: 01/11/25 22:18 Dose: 50 mg Allergies Allergies Allergy/AdvReac Type Severity Reaction Status Date / Time No Known Allergies Allergy Verified 12/30/24 11:36 Assessment & Plan Assessment & Plan (1) Major depressive disorder, recurrent severe without psychotic features: Status: Acute Code(s): F33.2 - Major depressive disorder, recurrent severe without psychotic features (2) Acute anxiety: Status: Acute Code(s): F41.9 - Anxiety disorder, unspecified Plan Plan Patient is a 39-year-old female, [employer] , with history of MDD, VENKAT, who presents for worsening and overwhelming anxiety and hopes to get ECT treatment. Patient reports depression and anxiety since teenage years. It has worsened significantly over the last year to the point where she has become debilitated; a constant stressor is her house in [place] remaining on the market, unsold; subsequently she has been living with her parents. Patient's depression has been significant and she endorses diminished interest, excessive guilt, low energy, poor concentration, having a force herself to shower... She was sent from the ID to start TMS and patient had 1 session this Saturday however her anxiety and depression became so overwhelming these past few days to the point where she could not stop crying or pacing the solorzano that she felt unable to wait the full 30 days it takes for T MS to be effective; patient has consistent thoughts that life is not worth living; she says she will not actively take her own life but wishes she would just not wake up. Patient says I feel out of my mind... Patient called providers at the ID told her to come to the emergency room. Patient endorses history of trauma but does not disclose; says she has been diagnosed with VENKAT as well as depression. Denies history of any manic episodes or behaviors; no drug or alcohol abuse formulation/clinical reasoning: hx of depression, with limited treatment results, though with limited med trials (effexor, abilify/brexpiprazole- tremors; lexapro, mirtazpine). She is overwhelmed with anxiety and depression -dx of VENKAT? Presents for ECT -will taper off lexapro and mirtazpine as she's been on high doses of both for months with no results. -agrees to start Clomipramine and ECT; discussed lithium but she had some reservations PlAN: cv q15 start Clomipramine 25mg lower Lexapro to 20mg (has been on 40mg for few months) continue MIrtazapine 45mg (will taper) Zyrpexa prn for anxiety/agitation ECT for saturday NPO 01/02: Increase Seroquel to 50 mg HS. Continue current management and treatment plan. ECT Wednesday 01/03: Increase Ativan to 1 mg TID. Hold after 8 PM on nights prior to ECT. 01/04: ECT #1 completed. BOLANOS, memory impairment immediately after. anxious. continue current mgmt. 01/05: calm, cooperative. incr anafranil to 50 mg QHS, decrease lexapro to 15 mg daily. ECT tomorrow, NPO p MN. 01/06: completed ECT #2 without incident. no s/e from medications, reduced s/e from ECT. continue current mgmt. 01/07: remains depressed and anxious. increase clomipramine to 75 mg QHS, decrease lexapro to 10 daily. ECT in the morning. 01/08: completed ECT #3 without incident today. continue current mgmt through saturday, plan to progress in anafranil/lexapro cross-taper on saturday. 01/09 keep same treatment. 01/10 keep same treatment 01/11: less anxious and depressed. focused on improvement, not worries today. ECT #4 completed without incident this morning. increase anafranil to 100 mg tonight and decrease lexapro to 5 mg tomorrow morning. planning to remain in hospital for entire course. 01/13: ECT #5 completed today. mood fine, not depressed, anxiety down. complete ECT #6 on saturday and decide if course should be completed then or further treatments done next week. DC lexapro. 01/14: Appears confused. guarded. flat affect. Patient responding to questions with short answers; reports feeling okay ; staring at T/W during assessment and tilting head side to side; when asked what she was doing, pt smiled and did not respond. Dr. Crawford decreased Zyprexa to 2.5mg PO TID and placed ECT on hold d/t possible ECT delirium. 01/15: remains delirious today, with some unexpected responses such as knowing the month is january yet asserting the season is fall. will continue current mgmt and observe over w/e. next ECT scheduled for saturday, may be canceled saturday depending on MSE. case discussed with pt's mother for 20 minutes. Time Spent With Patient Time: Total time managing care of this patient today ____ minutes.
[2025-01-15] MEDS: Mirtazapine 15 MG TABLET 45 MG PO (20:27)
[2025-01-15] MEDS: clomiPRAMINE HCl 25 MG CAPSULE 50 MG PO (20:28)
[2025-01-16 07:40] VITALS: BP 93/51; PULSE 91; RESP 14; TEMP 36.8; O2SAT 97
[2025-01-16] MEDS: Ascorbic Acid 500 MG TABLET 1000 MG PO (08:40)
[2025-01-16] MEDS: OLANZapine 2.5 MG TABLET PO ×2 (08:41→20:28)
[2025-01-16] MEDS: Multivitamin TABLET 1 TAB PO (08:41)
[2025-01-16] MEDS: Thiamine HCL 100 MG TABLET PO (08:41)
--- NOTE | 2025-01-16 11:14 | HO.PSYCHPN ---
Subjective Subjective Date of Service: 01/16/25 Reason For Visit: Crisis Subjective Notes: Conditional Voluntary Interim History: Pt reports ECT has helped. 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 Her affect is constricted. She is sleeping through the night. She appears oriented to place, situation, month, year. with some poverty of thought. Review of Systems Review of Systems Negative except for that which is stated in the [facility] Mental Status Exam Mental Status Exam Narrative: Pt is alert and oriented; behavior is cooperative, calm; dressed adequately, adequately groomed; mood is fine and affect constricted and hypo-intense; eye contact appropriate; Speech is normal rate, loudness and prosody and not pressured; psychomotor retardation present; thought process is organized and goal directed; Thought content is on improvement; no SI/HI/AVH expressed. Patients insight and judgment improving. Diagnostics Vital Signs (24Hr): Vital Signs - 24 hr 01/16/25 07:40 Temperature 98.2 F Pulse Rate 91 Respiratory Rate 14 Blood Pressure 93/51 L Pulse Oximetry 97 Oxygen Delivery Method Room Air BMI result Body Mass Index 18.6 Labs 01/14/25 14:07 01/14/25 14:07 Labs: Laboratory Results - last 48 hr 01/14/25 01/14/25 14:07 14:30 WBC 6.1 RBC 4.26 Hgb 13.7 Hct 40.0 MCV 93.9 MCH 32.2 MCHC 34.3 RDW 11.9 Plt Count 412 H D MPV 8.9 L Immature Gran % (Auto) 0.5 H Neut % (Auto) 51.8 Lymph % (Auto) 34.9 [place] % (Auto) 8.8 Eos % (Auto) 2.9 Baso % (Auto) 1.1 Lymph # (Auto) 2.1 [place] # (Auto) 0.5 Eos # (Auto) 0.2 Baso # (Auto) 0.1 Abs Immat Gran (auto) 0.03 Absolute Neuts (auto) 3.2 Absolute Nucleated RBC 0.000 Nucleated RBC % (auto) 0.0 Sodium 141 Potassium 4.3 Chloride 105 Carbon Dioxide 29 Anion Gap 11 L BUN 20 H Creatinine 1.01 Estim Creat Clear Calc 58.1 Estimated GFR > 60 Random Glucose 89 Calcium 9.3 Total Bilirubin 0.2 AST 20 ALT 38 H Alkaline Phosphatase 54 Total Protein 7.1 Albumin 3.8 Urine Color Yellow Urine Appearance Clear Urine pH 6.5 Ur Specific [employer] [employer] 1.015 Urine Protein Negative Urine Glucose (UA) Negative Urine Ketones Negative Urine Blood Negative Urine Nitrite Negative Ur Leukocyte Esterase Negative Medications Medications Current Medications Acetaminophen (Acetaminophen 325 Mg Tablet) 650 mg PO Q6H PRN PRN Reason: Headache/Pain, Scale 1-10 Last Admin: 01/08/25 19:19 Dose: 650 mg Al Hydroxide/Mg Hydroxide (Magnesium Hydrox/Alum Hydrox 30 Ml Oral.Susp) 30 ml PO Q6H PRN PRN Reason: Heartburn/Nausea Ascorbic Acid (Ascorbic Acid 500 Mg Tablet) 1,000 mg PO DAILY [facility] Last Admin: 01/16/25 08:40 Dose: 1,000 mg Calcium Carbonate (Calcium Carbonate 750 Mg Tab.Chew) 750 mg PO Q6H PRN PRN Reason: Heartburn Last Admin: 01/11/25 17:51 Dose: 750 mg Clomipramine HCl (Clomipramine Hcl 25 Mg Capsule) 50 mg PO BEDTIME [facility] Last Admin: 01/15/25 20:28 Dose: 50 mg Hydroxyzine HCl (Hydroxyzine Hcl 25 Mg Tablet) 25 mg PO Q6H PRN PRN Reason: mild anxiety Last Admin: 01/09/25 19:54 Dose: 25 mg Ibuprofen (Ibuprofen 600 Mg Tablet) 600 mg PO Q6H PRN PRN Reason: BOLANOS Lorazepam (Lorazepam 1 Mg Tablet) 1 mg PO TID PRN PRN Reason: Anxiety Last Admin: 01/12/25 19:55 Dose: 1 mg Magnesium Hydroxide (Milk Of Magnesia 30 Ml Oral.Susp) 30 ml PO DAILY PRN PRN Reason: Constipation Last Admin: 01/09/25 10:48 Dose: 30 ml Mirtazapine (Mirtazapine 15 Mg Tablet) 45 mg PO BEDTIME [facility] Last Admin: 01/15/25 20:27 Dose: 45 mg Multivitamins/Vitamin C (Multivitamin Tablet) 1 tab PO DAILY [facility] Last Admin: 01/16/25 08:41 Dose: 1 tab Nicotine Polacrilex (Nicotine Polacrilex 2 Mg Gum) 4 mg BUCCAL Q2H PRN PRN Reason: Nicotine Cravings Olanzapine (Olanzapine 2.5 Mg Tablet) 2.5 mg PO TID [facility] Last Admin: 01/16/25 08:41 Dose: 2.5 mg Ondansetron HCl (Ondansetron Odt 4 Mg Tab.Rapdis) 4 mg TRANSLINGU Q6H PRN PRN Reason: Nausea and Vomiting Last Admin: 01/04/25 20:02 Dose: 4 mg Quetiapine Fumarate (Quetiapine Fumarate 50 Mg Tablet) 50 mg PO BEDTIME PRN PRN Reason: Anxiety Last Admin: 01/06/25 23:45 Dose: 50 mg Thiamine HCl (Thiamine Hcl 100 Mg Tablet) 100 mg PO DAILY [facility] Last Admin: 01/16/25 08:41 Dose: 100 mg Trazodone HCl (Trazodone Hcl 50 Mg Tablet) 50 mg PO BEDTIME MRX1 PRN PRN Reason: Insomnia Last Admin: 01/11/25 22:18 Dose: 50 mg Allergies Allergies Allergy/AdvReac Type Severity Reaction Status Date / Time No Known Allergies Allergy Verified 12/30/24 11:36 Assessment & Plan Assessment & Plan (1) Major depressive disorder, recurrent severe without psychotic features: Status: Acute Code(s): F33.2 - Major depressive disorder, recurrent severe without psychotic features (2) Acute anxiety: Status: Acute Code(s): F41.9 - Anxiety disorder, unspecified Plan 01/16 continue tx. Reason for continued inpatient stay Substantial Risk for: inability to function Time Spent With Patient Time: Total time managing care of this patient today ____ minutes.
[2025-01-16 20:00] VITALS: BP 99/64; O2SAT 98
[2025-01-16] MEDS: clomiPRAMINE HCl 25 MG CAPSULE 50 MG PO (20:28)
[2025-01-16] MEDS: Mirtazapine 15 MG TABLET 45 MG PO (20:28)
[2025-01-17 08:00] VITALS: BP 104/58; PULSE 85; TEMP 36.8; O2SAT 98
[2025-01-17] MEDS: OLANZapine 2.5 MG TABLET PO ×2 (08:45→21:35)
[2025-01-17] MEDS: Multivitamin TABLET 1 TAB PO (08:45)
[2025-01-17] MEDS: Ascorbic Acid 500 MG TABLET 1000 MG PO (08:45)
[2025-01-17] MEDS: Thiamine HCL 100 MG TABLET PO (08:45)
--- NOTE | 2025-01-17 11:42 | P.PNPSI_ITS ---
Subjective Subjective Date of Service: 01/17/25 Reason For Visit: Crisis Subjective Notes: Conditional Voluntary Interim History: Per nursing, last night pt confused as to where she was and making some bizarre statements. Today, pt with delayed response.When asked about what had happened last night, pt states we're joe we made it. When asked to elaborate she states there was a lot of concentrated activity, but you were here, you know. She reports we are all trying to forget about it. Would not elaborate further. However, when asked about where we are, she is able to quickly say that we are at [facility], that the month is January and 2024. she shows paranoid delusions with some catatonic features, rather than straight delirium. Review of Systems Review of Systems Negative except for that which is stated in the [facility] Mental Status Exam Mental Status Exam Narrative: Pt is alert and oriented to place, month, year; behavior is cooperative. dressed adequately, adequately groomed; mood is fine and affect constricted and hypo- intense; eye contact appropriate; Speech: delayed response, minimally spontaneous; psychomotor retardation present; thought process is organized and goal directe; Thought content: paranoid delusion no SI/HI. appears internally preoccupied. Patients insight and judgment improving. Diagnostics Vital Signs (24Hr): Vital Signs - 24 hr 01/16/25 20:00 01/17/25 08:00 Temperature 98.3 F Pulse Rate 85 Blood Pressure 99/64 104/58 L Pulse Oximetry 98 98 Oxygen Delivery Method Room Air Room Air BMI result Body Mass Index 18.6 Labs 01/14/25 14:07 01/14/25 14:07 Medications Medications Current Medications Acetaminophen (Acetaminophen 325 Mg Tablet) 650 mg PO Q6H PRN PRN Reason: Headache/Pain, Scale 1-10 Last Admin: 01/08/25 19:19 Dose: 650 mg Al Hydroxide/Mg Hydroxide (Magnesium Hydrox/Alum Hydrox 30 Ml Oral.Susp) 30 ml PO Q6H PRN PRN Reason: Heartburn/Nausea Ascorbic Acid (Ascorbic Acid 500 Mg Tablet) 1,000 mg PO DAILY BREA Last Admin: 01/17/25 08:45 Dose: 1,000 mg Calcium Carbonate (Calcium Carbonate 750 Mg Tab.Chew) 750 mg PO Q6H PRN PRN Reason: Heartburn Last Admin: 01/11/25 17:51 Dose: 750 mg Clomipramine HCl (Clomipramine Hcl 25 Mg Capsule) 50 mg PO BEDTIME [facility] Last Admin: 01/16/25 20:28 Dose: 50 mg Hydroxyzine HCl (Hydroxyzine Hcl 25 Mg Tablet) 25 mg PO Q6H PRN PRN Reason: mild anxiety Last Admin: 01/09/25 19:54 Dose: 25 mg Ibuprofen (Ibuprofen 600 Mg Tablet) 600 mg PO Q6H PRN PRN Reason: BOLANOS Lorazepam (Lorazepam 1 Mg Tablet) 1 mg PO TID PRN PRN Reason: Anxiety Last Admin: 01/12/25 19:55 Dose: 1 mg Magnesium Hydroxide (Milk Of Magnesia 30 Ml Oral.Susp) 30 ml PO DAILY PRN PRN Reason: Constipation Last Admin: 01/09/25 10:48 Dose: 30 ml Mirtazapine (Mirtazapine 15 Mg Tablet) 45 mg PO BEDTIME [facility] Last Admin: 01/16/25 20:28 Dose: 45 mg Multivitamins/Vitamin C (Multivitamin Tablet) 1 tab PO DAILY [facility] Last Admin: 01/17/25 08:45 Dose: 1 tab Nicotine Polacrilex (Nicotine Polacrilex 2 Mg Gum) 4 mg BUCCAL Q2H PRN PRN Reason: Nicotine Cravings Olanzapine (Olanzapine 2.5 Mg Tablet) 2.5 mg PO TID [facility] Last Admin: 01/17/25 08:45 Dose: 2.5 mg Ondansetron HCl (Ondansetron Odt 4 Mg Tab.Rapdis) 4 mg TRANSLINGU Q6H PRN PRN Reason: Nausea and Vomiting Last Admin: 01/04/25 20:02 Dose: 4 mg Quetiapine Fumarate (Quetiapine Fumarate 50 Mg Tablet) 50 mg PO BEDTIME PRN PRN Reason: Anxiety Last Admin: 01/06/25 23:45 Dose: 50 mg Thiamine HCl (Thiamine Hcl 100 Mg Tablet) 100 mg PO DAILY [facility] Last Admin: 01/17/25 08:45 Dose: 100 mg Trazodone HCl (Trazodone Hcl 50 Mg Tablet) 50 mg PO BEDTIME MRX1 PRN PRN Reason: Insomnia Last Admin: 01/11/25 22:18 Dose: 50 mg Allergies Allergies Allergy/AdvReac Type Severity Reaction Status Date / Time No Known Allergies Allergy Verified 12/30/24 11:36 Assessment & Plan Assessment & Plan (1) Major depressive disorder, recurrent severe without psychotic features: Status: Acute Code(s): F33.2 - Major depressive disorder, recurrent severe without psychotic features (2) Acute anxiety: Status: Acute Code(s): F41.9 - Anxiety disorder, unspecified Plan 01/16 continue tx. 01/17 she shows paranoid delusions with some catatonic features, rather than straight delirium. continue current tx. Reason for continued inpatient stay Substantial Risk for: inability to function Time Spent With Patient Time: Total time managing care of this patient today ____ minutes.
[2025-01-17] MEDS: LORazepam 1 MG TABLET PO (14:07)
[2025-01-17 20:00] VITALS: RESP 16
[2025-01-17] MEDS: clomiPRAMINE HCl 25 MG CAPSULE 50 MG PO (21:35)
[2025-01-17] MEDS: Mirtazapine 15 MG TABLET 45 MG PO (21:35)
--- NOTE | 2025-01-18 | EEG_ITS ---
This is a 16-channel EEG with an EKG lead. The patient is reported awake during the tracing. Background EEG rhythm is mostly interrupted by sometime left, sometime right, and sometime bilateral sharply contoured discharges. Rarely it was noted to be low amplitude and slow alpha range. Sharply contoured discharges were noted sometime coming from left and sometime from right temporal areas with phase reversal at T3 and T4. Photic stimulation did not produce any significant driving. Hyperventilation was not performed. Cardiac lead did not reveal any significant abnormality. IMPRESSION: Abnormal EEG revealing bilateral epileptic discharges. MD SNEHAL Wright/[place] / [id number]
[2025-01-18 07:52] VITALS: BP 98/58; PULSE 87; RESP 16; TEMP 36.7; O2SAT 97
[2025-01-18] MEDS: Thiamine HCL 100 MG TABLET PO (08:43)
[2025-01-18] MEDS: OLANZapine 2.5 MG TABLET PO ×3 (08:43→20:08)
[2025-01-18] MEDS: Multivitamin TABLET 1 TAB PO (08:43)
[2025-01-18] MEDS: Ascorbic Acid 500 MG TABLET 1000 MG PO (08:44)
--- NOTE | 2025-01-18 12:57 | P.PNPSI_ITS ---
Subjective Subjective Date of Service: 01/18/25 Reason For Visit: Crisis Interim History: aware she is at [facility], takes her a very long time to be able to add that [facility] is in [place]. aware this is a psych unit and that she is getting ECT for anxiety and depression. knows the season is january, says january is spring, and that today might be saturday (it is). appears improved from our last meeting yet still impaired in attention/cognition. informed of plan for EEG and dose reduction in clomipramine. per staff, some anxiety. flat affect. less confused. difficult to engage. lef thand tremor. standing ovver sleeping roommate, staring at her. Mental Status Exam Mental Status Exam Narrative: Pt is alert and oriented to place, month, season, type of floor; behavior is cooperative. dressed adequately, adequately groomed; mood is fine and affect constricted and hypo-intense; eye contact appropriate; Speech: delayed response, minimally spontaneous; psychomotor retardation present; thought process is organized and goal directed; Thought content: no paranoid delusions noted. no SI/HI expressed. Patient's insight and judgment improving. Diagnostics Vital Signs (24Hr): Vital Signs - 24 hr 01/17/25 20:00 01/18/25 07:52 Temperature 98.0 F Pulse Rate 87 Respiratory Rate 16 16 Blood Pressure 98/58 L Pulse Oximetry 97 Oxygen Delivery Method Room Air BMI result Body Mass Index 18.6 Labs 01/14/25 14:07 01/14/25 14:07 Medications Medications Current Medications Acetaminophen (Acetaminophen 325 Mg Tablet) 650 mg PO Q6H PRN PRN Reason: Headache/Pain, Scale 1-10 Last Admin: 01/08/25 19:19 Dose: 650 mg Al Hydroxide/Mg Hydroxide (Magnesium Hydrox/Alum Hydrox 30 Ml Oral.Susp) 30 ml PO Q6H PRN PRN Reason: Heartburn/Nausea Ascorbic Acid (Ascorbic Acid 500 Mg Tablet) 1,000 mg PO DAILY [facility] Last Admin: 01/18/25 08:44 Dose: 1,000 mg Calcium Carbonate (Calcium Carbonate 750 Mg Tab.Chew) 750 mg PO Q6H PRN PRN Reason: Heartburn Last Admin: 01/11/25 17:51 Dose: 750 mg Clomipramine HCl (Clomipramine Hcl 25 Mg Capsule) 50 mg PO BEDTIME [facility] Last Admin: 01/17/25 21:35 Dose: 50 mg Hydroxyzine HCl (Hydroxyzine Hcl 25 Mg Tablet) 25 mg PO Q6H PRN PRN Reason: mild anxiety Last Admin: 01/09/25 19:54 Dose: 25 mg Ibuprofen (Ibuprofen 600 Mg Tablet) 600 mg PO Q6H PRN PRN Reason: BOLANOS Lorazepam (Lorazepam 1 Mg Tablet) 1 mg PO TID PRN PRN Reason: Anxiety Last Admin: 01/12/25 19:55 Dose: 1 mg Magnesium Hydroxide (Milk Of Magnesia 30 Ml Oral.Susp) 30 ml PO DAILY PRN PRN Reason: Constipation Last Admin: 01/09/25 10:48 Dose: 30 ml Mirtazapine (Mirtazapine 15 Mg Tablet) 45 mg PO BEDTIME [facility]A Last Admin: 01/17/25 21:35 Dose: 45 mg Multivitamins/Vitamin C (Multivitamin Tablet) 1 tab PO DAILY [facility] Last Admin: 01/18/25 08:43 Dose: 1 tab Nicotine Polacrilex (Nicotine Polacrilex 2 Mg Gum) 4 mg BUCCAL Q2H PRN PRN Reason: Nicotine Cravings Olanzapine (Olanzapine 2.5 Mg Tablet) 2.5 mg PO TID [facility] Last Admin: 01/18/25 08:43 Dose: 2.5 mg Ondansetron HCl (Ondansetron Odt 4 Mg Tab.Rapdis) 4 mg TRANSLINGU Q6H PRN PRN Reason: Nausea and Vomiting Last Admin: 01/04/25 20:02 Dose: 4 mg Quetiapine Fumarate (Quetiapine Fumarate 50 Mg Tablet) 50 mg PO BEDTIME PRN PRN Reason: Anxiety Last Admin: 01/06/25 23:45 Dose: 50 mg Thiamine HCl (Thiamine Hcl 100 Mg Tablet) 100 mg PO DAILY [facility] Last Admin: 01/18/25 08:43 Dose: 100 mg Trazodone HCl (Trazodone Hcl 50 Mg Tablet) 50 mg PO BEDTIME MRX1 PRN PRN Reason: Insomnia Last Admin: 01/11/25 22:18 Dose: 50 mg Allergies Allergies Allergy/AdvReac Type Severity Reaction Status Date / Time No Known Allergies Allergy Verified 12/30/24 11:36 Assessment & Plan Assessment & Plan (1) Major depressive disorder, recurrent severe without psychotic features: Status: Acute Code(s): F33.2 - Major depressive disorder, recurrent severe without psychotic features (2) Acute anxiety: Status: Acute Code(s): F41.9 - Anxiety disorder, unspecified Plan 01/16 continue tx. 01/17 she shows paranoid delusions with some catatonic features, rather than straight delirium. continue current tx. 01/18: more oriented than last saturday, less PMR. continue present medications and supportive care. will observe for improvement. check EEG today. case d/w sushma. likely improving ECT-related delirium. Reason for continued inpatient stay Substantial Risk for: inability to function Time Spent With Patient Time: Total time managing care of this patient today __35__ minutes.
[2025-01-18 19:57] VITALS: BP 98/56; PULSE 97; RESP 16; TEMP 37.2; O2SAT 96
[2025-01-18] MEDS: Divalproex Sodium ER 500 MG TAB.ER.24H PO (20:08)
[2025-01-18] MEDS: Mirtazapine 15 MG TABLET 45 MG PO (20:08)
[2025-01-18] MEDS: clomiPRAMINE HCl 25 MG CAPSULE 50 MG PO (20:08)
[2025-01-19 08:00] VITALS: BP 115/67; PULSE 102; RESP 16; TEMP 36.4; O2SAT 100
[2025-01-19] MEDS: OLANZapine 2.5 MG TABLET PO (08:43)
[2025-01-19] MEDS: Ascorbic Acid 500 MG TABLET 1000 MG PO (08:43)
[2025-01-19] MEDS: Multivitamin TABLET 1 TAB PO (08:44)
[2025-01-19] MEDS: Divalproex Sodium ER 500 MG TAB.ER.24H PO ×2 (08:44→20:19)
[2025-01-19] MEDS: Thiamine HCL 100 MG TABLET PO (08:44)
--- NOTE | 2025-01-19 12:00 | PM.NEUROCN ---
History of Present Illness Data of Consult Service Date: 01/19/25 Primary Care Provider: None Physician HPI Reason for consult: Abnormal EEG 39 years old woman with chronic depression and anxiety was admitted with worsening of these symptoms and for potential treatment with ECT. Apparently she had tried multiple medicines of different nature without significant benefit. She was given ECT and was noted to be somewhat confused and an EEG was done, which I read yesterday. EEG revealed epileptic discharges and it was recommended to start her on Depakote. She was not known to have epilepsy. Review of Systems Review of Systems: Depression and anxiety. [facility] Past Medical History Medical History Major depressive disorder, recurrent severe without psychotic features History of OCD (obsessive compulsive disorder) Social History Social History Household Members: Family Household Members Other:: 3 Housing: House Do you presently have visiting nurse or other home services: No Patient Tobacco Use Status: Never used Tobacco Smoked in Last 30 Days: No Patient Interested in Nicotine Replacement: No Patient Given Instructions on How to Stop Smoking: No Second Hand Smoke Exposure: No Use of substances other than those prescribed or required for medical reasons: No Substance Use Type: Caffiene Substance Use Type Other:: 2-4 cups decaf in morning Currently Displaying Signs/Symptoms of Drug Intoxication Withdrawal: No Any prior treatment program specific to substance use: No Have you been hit, kicked, punched, or otherwise hurt by someone within the past year? If so, by whom?: No Do you feel safe in your current relationship?: No Current Relationship Is there a partner from a previous relationship who is making you feel unsafe now?: No Are you made to feel afraid or neglected: No Spiritual Healthcare Practices: Spiritual Sabianist Healthcare Practices: Mosque Advance Directives: No Advance Directives Information Provided: Yes Do you have thoughts of harming others: None Do you have a plan to hurt others: No Plan Recently lost weight without trying: No Eating poorly because of decreased appetite: No Nutrition Risks: No Nutritional Risk Patient : No : No Poor oral hygiene: No service: Yes ([employer]) Sexual orientation: Unable to collect Meds Allergies Allergy/AdvReac Type Severity Reaction Status Date / Time No Known Allergies Allergy Verified 12/30/24 11:36 Active Medications: Current Medications Acetaminophen (Acetaminophen 325 Mg Tablet) 650 mg PO Q6H PRN PRN Reason: Headache/Pain, Scale 1-10 Last Admin: 01/08/25 19:19 Dose: 650 mg Al Hydroxide/Mg Hydroxide (Magnesium Hydrox/Alum Hydrox 30 Ml Oral.Susp) 30 ml PO Q6H PRN PRN Reason: Heartburn/Nausea Ascorbic Acid (Ascorbic Acid 500 Mg Tablet) 1,000 mg PO DAILY [facility] Last Admin: 01/19/25 08:43 Dose: 1,000 mg Calcium Carbonate (Calcium Carbonate 750 Mg Tab.Chew) 750 mg PO Q6H PRN PRN Reason: Heartburn Last Admin: 01/11/25 17:51 Dose: 750 mg Clomipramine HCl (Clomipramine Hcl 25 Mg Capsule) 50 mg PO BEDTIME [facility] Last Admin: 01/18/25 20:08 Dose: 50 mg Divalproex Sodium (Divalproex Sodium Er 500 Mg Tab.Er.24h) 500 mg PO BID [facility] Last Admin: 01/19/25 08:44 Dose: 500 mg Hydroxyzine HCl (Hydroxyzine Hcl 25 Mg Tablet) 25 mg PO Q6H PRN PRN Reason: mild anxiety Last Admin: 01/09/25 19:54 Dose: 25 mg Ibuprofen (Ibuprofen 600 Mg Tablet) 600 mg PO Q6H PRN PRN Reason: BOLANOS Lorazepam (Lorazepam 1 Mg Tablet) 1 mg PO TID PRN PRN Reason: Anxiety Last Admin: 01/12/25 19:55 Dose: 1 mg Magnesium Hydroxide (Milk Of Magnesia 30 Ml Oral.Susp) 30 ml PO DAILY PRN PRN Reason: Constipation Last Admin: 01/09/25 10:48 Dose: 30 ml Mirtazapine (Mirtazapine 15 Mg Tablet) 45 mg PO BEDTIME [facility] Last Admin: 01/18/25 20:08 Dose: 45 mg Multivitamins/Vitamin C (Multivitamin Tablet) 1 tab PO DAILY [facility] Last Admin: 01/19/25 08:44 Dose: 1 tab Nicotine Polacrilex (Nicotine Polacrilex 2 Mg Gum) 4 mg BUCCAL Q2H PRN PRN Reason: Nicotine Cravings Olanzapine (Olanzapine 5 Mg Tablet) 5 mg PO BEDTIME [facility] Ondansetron HCl (Ondansetron Odt 4 Mg Tab.Rapdis) 4 mg TRANSLINGU Q6H PRN PRN Reason: Nausea and Vomiting Last Admin: 01/04/25 20:02 Dose: 4 mg Quetiapine Fumarate (Quetiapine Fumarate 50 Mg Tablet) 50 mg PO BEDTIME PRN PRN Reason: Anxiety Last Admin: 01/06/25 23:45 Dose: 50 mg Thiamine HCl (Thiamine Hcl 100 Mg Tablet) 100 mg PO DAILY [facility] Last Admin: 01/19/25 08:44 Dose: 100 mg Trazodone HCl (Trazodone Hcl 50 Mg Tablet) 50 mg PO BEDTIME MRX1 PRN PRN Reason: Insomnia Last Admin: 01/11/25 22:18 Dose: 50 mg Home Medications ?Medication ?Instructions ?Recorded ?Confirmed ?Last Taken ?Type escitalopram oxalate 20 mg tablet 40 mg PO DAILY 12/30/24 12/31/24 Unknown History lorazepam 0.5 mg tablet (Ativan) 0.5 mg PO QID PRN Anxiety 12/30/24 12/31/24 Unknown History mirtazapine 45 mg tablet 45 mg PO BEDTIME 12/30/24 12/30/24 Unknown History quetiapine 25 mg tablet 25 mg PO BEDTIME PRN Anxiety 12/30/24 12/30/24 Unknown History ascorbic acid (vitamin C) 500 mg 1,000 mg PO DAILY 01/01/25 01/01/25 Unknown History tablet multivitamin 1 tab PO DAILY 01/01/25 01/01/25 Unknown History omega-3 fatty acids 500 mg capsule 1,000 mg PO DAILY 01/01/25 01/01/25 Unknown History Physical Exam Vital Signs: Vital Signs: Last Vital Signs Temp 98.9 F 01/18/25 19:57 Pulse 97 01/18/25 19:57 Resp 16 01/18/25 19:57 BP 98/56 L 01/18/25 19:57 Pulse Ox 96 01/18/25 19:57 O2 Del Method Room Air 01/18/25 19:57 O2 Flow Rate 2 01/13/25 08:05 BMI result Body Mass Index 18.6 Neuro: Other: Alert and awake with normal spontaneity and fluency of speech. She was walking around in the hallway when I saw her. Her left hand was constantly shaking. There was mild reduction of facial expression blinking. Affect was flat. Deep tendon reflexes were 1+ with flexor plantars. Speech was normal. Face was symmetrical. Visual martinez are full. 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 At this time her examination was nonfocal except mild extrapyramidal features, probably from previous exposure to neuroleptics. My recommendation is to treat her with Depakote 500 mg twice a day for 3 months and then repeat EEG. If okay, and there was no other benefit of Depakote, it could be stopped. Procedures Date of Service Date of Service: 01/19/25
--- NOTE | 2025-01-19 12:38 | P.PNPSI_ITS ---
Subjective Subjective Date of Service: 01/19/25 Reason For Visit: Crisis Interim History: similar presentation to yesterday. generally slowed, grossly oriented. c/o tiredness. discuss results of EEG and plan to hold ECT for the time being. also reporting DFA and MNA. per staff, called mother 5 times yesterday. a little brighter, less confused. Mental Status Exam Mental Status Exam Narrative: Pt is alert and grossly oriented; behavior is cooperative. dressed adequately, adequately groomed; mood is fine and affect constricted and hypo-intense; eye contact appropriate; Speech: delayed response, minimally spontaneous; psychomotor retardation present; thought process is organized and goal directed; Thought content: no paranoid delusions noted. no SI/HI expressed. Patient's insight and judgment improving. Diagnostics Vital Signs (24Hr): Vital Signs - 24 hr 01/18/25 19:57 01/19/25 08:00 Temperature 98.9 F 97.6 F Pulse Rate 97 102 H Respiratory Rate 16 16 Blood Pressure 98/56 L 115/67 Pulse Oximetry 96 100 Oxygen Delivery Method Room Air Room Air BMI result Body Mass Index 18.6 Labs 01/14/25 14:07 01/14/25 14:07 Medications Medications Current Medications Acetaminophen (Acetaminophen 325 Mg Tablet) 650 mg PO Q6H PRN PRN Reason: Headache/Pain, Scale 1-10 Last Admin: 01/08/25 19:19 Dose: 650 mg Al Hydroxide/Mg Hydroxide (Magnesium Hydrox/Alum Hydrox 30 Ml Oral.Susp) 30 ml PO Q6H PRN PRN Reason: Heartburn/Nausea Ascorbic Acid (Ascorbic Acid 500 Mg Tablet) 1,000 mg PO DAILY [facility] Last Admin: 01/19/25 08:43 Dose: 1,000 mg Calcium Carbonate (Calcium Carbonate 750 Mg Tab.Chew) 750 mg PO Q6H PRN PRN Reason: Heartburn Last Admin: 01/11/25 17:51 Dose: 750 mg Clomipramine HCl (Clomipramine Hcl 25 Mg Capsule) 50 mg PO BEDTIME [facility] Last Admin: 01/18/25 20:08 Dose: 50 mg Divalproex Sodium (Divalproex Sodium Er 500 Mg Tab.Er.24h) 500 mg PO BID [facility] Last Admin: 01/19/25 08:44 Dose: 500 mg Hydroxyzine HCl (Hydroxyzine Hcl 25 Mg Tablet) 25 mg PO Q6H PRN PRN Reason: mild anxiety Last Admin: 01/09/25 19:54 Dose: 25 mg Ibuprofen (Ibuprofen 600 Mg Tablet) 600 mg PO Q6H PRN PRN Reason: BOLANOS Lorazepam (Lorazepam 1 Mg Tablet) 1 mg PO TID PRN PRN Reason: Anxiety Last Admin: 01/12/25 19:55 Dose: 1 mg Magnesium Hydroxide (Milk Of Magnesia 30 Ml Oral.Susp) 30 ml PO DAILY PRN PRN Reason: Constipation Last Admin: 01/09/25 10:48 Dose: 30 ml Mirtazapine (Mirtazapine 15 Mg Tablet) 45 mg PO BEDTIME [facility] Last Admin: 01/18/25 20:08 Dose: 45 mg Multivitamins/Vitamin C (Multivitamin Tablet) 1 tab PO DAILY [facility] Last Admin: 01/19/25 08:44 Dose: 1 tab Nicotine Polacrilex (Nicotine Polacrilex 2 Mg Gum) 4 mg BUCCAL Q2H PRN PRN Reason: Nicotine Cravings Olanzapine (Olanzapine 5 Mg Tablet) 5 mg PO BEDTIME [facility] Ondansetron HCl (Ondansetron Odt 4 Mg Tab.Rapdis) 4 mg TRANSLINGU Q6H PRN PRN Reason: Nausea and Vomiting Last Admin: 01/04/25 20:02 Dose: 4 mg Quetiapine Fumarate (Quetiapine Fumarate 50 Mg Tablet) 50 mg PO BEDTIME PRN PRN Reason: Anxiety Last Admin: 01/06/25 23:45 Dose: 50 mg Thiamine HCl (Thiamine Hcl 100 Mg Tablet) 100 mg PO DAILY [facility] Last Admin: 01/19/25 08:44 Dose: 100 mg Trazodone HCl (Trazodone Hcl 50 Mg Tablet) 50 mg PO BEDTIME MRX1 PRN PRN Reason: Insomnia Last Admin: 01/11/25 22:18 Dose: 50 mg Allergies Allergies Allergy/AdvReac Type Severity Reaction Status Date / Time No Known Allergies Allergy Verified 12/30/24 11:36 Assessment & Plan Assessment & Plan (1) Encephalopathy: Qualifiers: Encephalopathy type: unspecified encephalopathy Qualified Code(s): G 93.40 - Encephalopathy, unspecified Status: Acute Code(s): G93.40 - Encephalopathy, unspecified Assessment and Plan: 39 years old woman with change in mental status after ECT, 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 At this time her examination was nonfocal except mild extrapyramidal features, probably from previous exposure to neuroleptics. My recommendation is to treat her with Depakote 500 mg twice a day for 3 months and then repeat EEG. If okay, and there was no other benefit of Depakote, it could be stopped. (2) Major depressive disorder, recurrent severe without psychotic features: Status: Acute Code(s): F33.2 - Major depressive disorder, recurrent severe without psychotic features Plan Patient is a 39-year-old female, [employer] , with history of MDD, VENKAT, who presents for worsening and overwhelming anxiety and hopes to get ECT treatment. Patient reports depression and anxiety since teenage years. It has worsened significantly over the last year to the point where she has become debilitated; a constant stressor is her house in [place] remaining on the market, unsold; subsequently she has been living with her parents. Patient's depression has been significant and she endorses diminished interest, excessive guilt, low energy, poor concentration, having a force herself to shower... She was [facility] from [facility] to [facility] and patient had 1 session this Saturday however her anxiety and depression became so overwhelming these past few days to the point where she could not stop crying or pacing the solorzano that she felt unable to wait the full 30 days it takes for T MS to be effective; patient has consistent thoughts that life is not worth living; she says she will not actively take her own life but wishes she would just not wake up. Patient says I feel out of my mind... Patient called providers at the [facility] told her to come to the emergency room. Patient endorses history of trauma but does not disclose; says she has been diagnosed with VENKAT as well as depression. Denies history of any manic episodes or behaviors; no drug or alcohol abuse formulation/clinical reasoning: hx of depression, with limited treatment results, though with limited med trials (effexor, abilify/brexpiprazole- tremors; lexapro, mirtazpine). She is overwhelmed with anxiety and depression -dx of VENKAT? Presents for ECT -will taper off lexapro and mirtazpine as she's been on high doses of both for months with no results. -agrees to start Clomipramine and ECT; discussed lithium but she had some reservations PlAN: cv q15 start Clomipramine 25mg lower Lexapro to 20mg (has been on 40mg for few months) continue MIrtazapine 45mg (will taper) Zyrpexa prn for anxiety/agitation ECT for saturday NPO 01/02: Increase Seroquel to 50 mg HS. Continue current management and treatment plan. ECT Wednesday 01/03: Increase Ativan to 1 mg TID. Hold after 8 PM on nights prior to ECT. 01/04: ECT #1 completed. BOLANOS, memory impairment immediately after. anxious. continue current mgmt. 01/05: calm, cooperative. incr anafranil to 50 mg QHS, decrease lexapro to 15 mg daily. ECT tomorrow, NPO p MN. 01/06: completed ECT #2 without incident. no s/e from medications, reduced s/e from ECT. continue current mgmt. 01/07: remains depressed and anxious. increase clomipramine to 75 mg QHS, decrease lexapro to 10 daily. ECT in the morning. 01/08: completed ECT #3 without incident today. continue current mgmt through saturday, plan to progress in anafranil/lexapro cross-taper on saturday. 01/09 keep same treatment. 01/10 keep same treatment 01/11: less anxious and depressed. focused on improvement, not worries today. ECT #4 completed without incident this morning. increase anafranil to 100 mg tonight and decrease lexapro to 5 mg tomorrow morning. planning to remain in hospital for entire course. 01/13: ECT #5 completed today. mood fine, not depressed, anxiety down. complete ECT #6 on saturday and decide if course should be completed then or further treatments done next week. DC lexapro. 01/14: Appears confused. guarded. flat affect. Patient responding to questions with short answers; reports feeling okay ; staring at T/W during assessment and tilting head side to side; when asked what she was doing, pt smiled and did not respond. Dr. Crawford decreased Zyprexa to 2.5mg PO TID and placed ECT on hold d/t possible ECT delirium. 01/15: remains delirious today, with some unexpected responses such as knowing the month is january yet asserting the season is fall. will continue current mgmt and observe over w/e. ECT for saturday canceld, anafranil dosing decreased to 50 to avoid an anti-Ach component to the delirium. case discussed with pt's mother for 20 minutes. 01/16: continue tx. 01/17: she shows paranoid delusions with some catatonic features, rather than straight delirium. continue current tx. 01/18: more oriented than last saturday, less PMR. continue present medications and supportive care. will observe for improvement. check EEG today. case d/w sushma. likely improving ECT-related delirium. 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 started on VPA 500 BID. further ECTs canceled for now. will follow and allow delirium to clear prior to making further Tx plan changes. Reason for continued inpatient stay Substantial Risk for: harm to self, inability to function and rapid decompensation Time Spent With Patient Time: Total time managing care of this patient today __35__ minutes.
[2025-01-19 20:00] VITALS: BP 88/60; PULSE 90; RESP 16; TEMP 36.4; O2SAT 97
[2025-01-19] MEDS: clomiPRAMINE HCl 25 MG CAPSULE 50 MG PO (20:19)
[2025-01-19] MEDS: Mirtazapine 15 MG TABLET 45 MG PO (20:19)
[2025-01-19] MEDS: OLANZapine 5 MG TABLET PO (20:20)
[2025-01-20 07:25] VITALS: BP 82/47; PULSE 89; RESP 16; TEMP 36.9; O2SAT 96
[2025-01-20] MEDS: Divalproex Sodium ER 500 MG TAB.ER.24H PO ×2 (08:12→19:58)
[2025-01-20] MEDS: Thiamine HCL 100 MG TABLET PO (08:12)
[2025-01-20] MEDS: Multivitamin TABLET 1 TAB PO (08:12)
[2025-01-20] MEDS: Ascorbic Acid 500 MG TABLET 1000 MG PO (08:12)
--- NOTE | 2025-01-20 15:30 | HO.PSYCHPN ---
Subjective Subjective Date of Service: 01/20/25 Reason For Visit: Crisis Interim History: calm, cooperative, appears fully oriented. visible in the milieu. reports anxiety has increased substantially and depression is not substantial. interested in restarting ECT. discussed low likelihood of that plan as well as plan to take VPA for 2 months then repeat EKG. per staff, denies depression. anxiety 2. VPA 500 BID. left hand tremor continues. brightens with conversation. some difficulty reported sleeping. Mental Status Exam Mental Status Exam Narrative: Pt is alert and oriented x4; behavior is cooperative. dressed adequately, adequately groomed; mood is anxious and affect constricted and hypo-intense; eye contact appropriate; Speech: delayed response, minimally spontaneous; psychomotor retardation present, left hand tremor; thought process is organized and goal directed; Thought content: no paranoid delusions noted. no SI/HI expressed. Patient's insight and judgment improving. Diagnostics Vital Signs (24Hr): Vital Signs - 24 hr 01/19/25 20:00 01/20/25 07:25 Temperature 97.6 F 98.5 F Pulse Rate 90 89 Respiratory Rate 16 16 Blood Pressure 88/60 L 82/47 L Pulse Oximetry 97 96 Oxygen Delivery Method Room Air Room Air BMI result Body Mass Index 18.6 Labs 01/14/25 14:07 01/14/25 14:07 Medications Medications Current Medications Acetaminophen (Acetaminophen 325 Mg Tablet) 650 mg PO Q6H PRN PRN Reason: Headache/Pain, Scale 1-10 Last Admin: 01/08/25 19:19 Dose: 650 mg Al Hydroxide/Mg Hydroxide (Magnesium Hydrox/Alum Hydrox 30 Ml Oral.Susp) 30 ml PO Q6H PRN PRN Reason: Heartburn/Nausea Ascorbic Acid (Ascorbic Acid 500 Mg Tablet) 1,000 mg PO DAILY [facility] Last Admin: 01/20/25 08:12 Dose: 1,000 mg Calcium Carbonate (Calcium Carbonate 750 Mg Tab.Chew) 750 mg PO Q6H PRN PRN Reason: Heartburn Last Admin: 01/11/25 17:51 Dose: 750 mg Clomipramine HCl (Clomipramine Hcl 25 Mg Capsule) 50 mg PO BEDTIME [facility] Last Admin: 01/19/25 20:19 Dose: 50 mg Clotrimazole (Clotrimazole 1 % Cream 15 Gm Tube) 1 appl TOPICAL BID [facility]; Protocol Last Admin: 01/20/25 10:25 Dose: Not Given Divalproex Sodium (Divalproex Sodium Er 500 Mg Tab.Er.24h) 500 mg PO BID [facility] Last Admin: 01/20/25 08:12 Dose: 500 mg Hydroxyzine HCl (Hydroxyzine Hcl 25 Mg Tablet) 25 mg PO Q6H PRN PRN Reason: mild anxiety Last Admin: 01/09/25 19:54 Dose: 25 mg Ibuprofen (Ibuprofen 600 Mg Tablet) 600 mg PO Q6H PRN PRN Reason: BOLANOS Lorazepam (Lorazepam 1 Mg Tablet) 1 mg PO TID PRN PRN Reason: Anxiety Last Admin: 01/12/25 19:55 Dose: 1 mg Magnesium Hydroxide (Milk Of Magnesia 30 Ml Oral.Susp) 30 ml PO DAILY PRN PRN Reason: Constipation Last Admin: 01/09/25 10:48 Dose: 30 ml Mirtazapine (Mirtazapine 15 Mg Tablet) 45 mg PO BEDTIME [facility] Last Admin: 01/19/25 20:19 Dose: 45 mg Multivitamins/Vitamin C (Multivitamin Tablet) 1 tab PO DAILY [facility] Last Admin: 01/20/25 08:12 Dose: 1 tab Nicotine Polacrilex (Nicotine Polacrilex 2 Mg Gum) 4 mg BUCCAL Q2H PRN PRN Reason: Nicotine Cravings Olanzapine (Olanzapine 5 Mg Tablet) 5 mg PO BEDTIME [facility] Last Admin: 01/19/25 20:20 Dose: 5 mg Ondansetron HCl (Ondansetron Odt 4 Mg Tab.Rapdis) 4 mg TRANSLINGU Q6H PRN PRN Reason: Nausea and Vomiting Last Admin: 01/04/25 20:02 Dose: 4 mg Quetiapine Fumarate (Quetiapine Fumarate 50 Mg Tablet) 50 mg PO BEDTIME PRN PRN Reason: Anxiety Last Admin: 01/06/25 23:45 Dose: 50 mg Thiamine HCl (Thiamine Hcl 100 Mg Tablet) 100 mg PO DAILY [facility] Last Admin: 01/20/25 08:12 Dose: 100 mg Trazodone HCl (Trazodone Hcl 50 Mg Tablet) 50 mg PO BEDTIME MRX1 PRN PRN Reason: Insomnia Last Admin: 01/11/25 22:18 Dose: 50 mg Allergies Allergies Allergy/AdvReac Type Severity Reaction Status Date / Time No Known Allergies Allergy Verified 12/30/24 11:36 Assessment & Plan Assessment & Plan (1) Encephalopathy: Qualifiers: Encephalopathy type: unspecified encephalopathy Qualified Code(s): G93.40 - Encephalopathy, unspecified Status: Acute Code(s): G93.40 - Encephalopathy, unspecified Assessment and Plan: 39 years old woman with change in mental status after ECT, 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 At this time her examination was nonfocal except mild extrapyramidal features, probably from previous exposure to neuroleptics. My recommendation is to treat her with Depakote 500 mg twice a day for 3 months and then repeat EEG. If okay, and there was no other benefit of Depakote, it could be stopped. (2) Major depressive disorder, recurrent severe without psychotic features: Status: Acute Code(s): F33.2 - Major depressive disorder, recurrent severe without psychotic features Plan Patient is a 39-year-old female, [employer] , with history of MDD, VENKAT, who presents for worsening and overwhelming anxiety and hopes to get ECT treatment. Patient reports depression and anxiety since teenage years. It has worsened significantly over the last year to the point where she has become debilitated; a constant stressor is her house in [place] remaining on the market, unsold; subsequently she has been living with her parents. Patient's depression has been significant and she endorses diminished interest, excessive guilt, low energy, poor concentration, having a force herself to shower... She was sent from the [facility] to start TMS and patient had 1 session this Saturday however her anxiety and depression became so overwhelming these past few days to the point where she could not stop crying or pacing the solorzano that she felt unable to wait the full 30 days it takes for T MS to be effective; patient has consistent thoughts that life is not worth living; she says she will not actively take her own life but wishes she would just not wake up. Patient says I feel out of my mind... Patient called providers at the [facility] told her to come to the emergency room. Patient endorses history of trauma but does not disclose; says she has been diagnosed with VENKAT as well as depression. Denies history of any manic episodes or behaviors; no drug or alcohol abuse formulation/clinical reasoning: hx of depression, with limited treatment results, though with limited med trials (effexor, abilify/brexpiprazole- tremors; lexapro, mirtazpine). She is overwhelmed with anxiety and depression -dx of VENKAT? Presents for ECT -will taper off lexapro and mirtazpine as she's been on high doses of both for months with no results. -agrees to start Clomipramine and ECT; discussed lithium but she had some reservations PlAN: cv q15 start Clomipramine 25mg lower Lexapro to 20mg (has been on 40mg for few months) continue MIrtazapine 45mg (will taper) Zyrpexa prn for anxiety/agitation ECT for saturday NPO 01/02: Increase Seroquel to 50 mg HS. Continue current management and treatment plan. ECT Wednesday 01/03: Increase Ativan to 1 mg TID. Hold after 8 PM on nights prior to ECT. 01/04: ECT #1 completed. BOLANOS, memory impairment immediately after. anxious. continue current mgmt. 01/05: calm, cooperative. incr anafranil to 50 mg QHS, decrease lexapro to 15 mg daily. ECT tomorrow, NPO p MN. 01/06: completed ECT #2 without incident. no s/e from medications, reduced s/e from ECT. continue current mgmt. 01/07: remains depressed and anxious. increase clomipramine to 75 mg QHS, decrease lexapro to 10 daily. ECT in the morning. 01/08: completed ECT #3 without incident today. continue current mgmt through saturday, plan to progress in anafranil/lexapro cross-taper on saturday. 01/09 keep same treatment. 01/10 keep same treatment 01/11: less anxious and depressed. focused on improvement, not worries today. ECT #4 completed without incident this morning. increase anafranil to 100 mg tonight and decrease lexapro to 5 mg tomorrow morning. planning to remain in hospital for entire course. 01/13: ECT #5 completed today. mood fine, not depressed, anxiety down. complete ECT #6 on saturday and decide if course should be completed then or further treatments done next week. DC lexapro. 01/14: Appears confused. guarded. flat affect. Patient responding to questions with short answers; reports feeling okay ; staring at T/W during assessment and tilting head side to side; when asked what she was doing, pt smiled and did not respond. Dr. Crawford decreased Zyprexa to 2.5mg PO TID and placed ECT on hold d/t possible ECT delirium. 01/15: remains delirious today, with some unexpected responses such as knowing the month is january yet asserting the season is fall. will continue current mgmt and observe over w/e. ECT for saturday canceld, anafranil dosing decreased to 50 to avoid an anti-Ach component to the delirium. case discussed with pt's mother for 20 minutes. 01/16: continue tx. 01/17: she shows paranoid delusions with some catatonic features, rather than straight delirium. continue current tx. 01/18: more oriented than last saturday, less PMR. continue present medications and supportive care. will observe for improvement. check EEG today. case d/w danielle and gabriel. likely improving ECT-related delirium. 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 started on VPA 500 BID. further ECTs canceled for now. will follow and allow delirium to clear prior to making further Tx plan changes. 01/20: resolving delirium from recent post-ECT seizure activity, hopefully now quashed. continue VPA 500 BID. case discussed with gabriel; likely will not restart ECT and will focus more on medications management. Reason for continued inpatient stay Substantial Risk for: inability to function and rapid decompensation Time Spent With Patient Time: Total time managing care of this patient today __35__ minutes.
[2025-01-20 19:39] VITALS: BP 96/57; PULSE 89; RESP 16; TEMP 36.8; O2SAT 97
[2025-01-20] MEDS: Mirtazapine 15 MG TABLET 45 MG PO (19:57)
[2025-01-20] MEDS: OLANZapine 5 MG TABLET PO (19:58)
[2025-01-20] MEDS: clomiPRAMINE HCl 25 MG CAPSULE 50 MG PO (19:58)
[2025-01-21 07:35] VITALS: BP 114/56; PULSE 86; RESP 14; TEMP 36.6; O2SAT 97
[2025-01-21] MEDS: Thiamine HCL 100 MG TABLET PO (08:35)
[2025-01-21] MEDS: Multivitamin TABLET 1 TAB PO (08:35)
[2025-01-21] MEDS: Ascorbic Acid 500 MG TABLET 1000 MG PO (08:35)
[2025-01-21] MEDS: Divalproex Sodium ER 500 MG TAB.ER.24H PO ×2 (08:35→20:00)
--- NOTE | 2025-01-21 14:18 | HO.PSYCHPN ---
Subjective Subjective Date of Service: 01/21/25 Reason For Visit: Crisis Interim History: flat, calm. c/o feeling tired all the time. meds reviewed, first step taken to DC zyprexa. states she is sleeping well. denies feeling more tired after taking morning VPA. informed resuming ECT in the near future is presently off the table. pt states she is interested in starting to think about discharge. Mental Status Exam Mental Status Exam Narrative: Pt is alert and oriented x4; behavior is cooperative. dressed adequately, adequately groomed; mood not assessed, affect constricted and hypo-intense; eye contact appropriate; Speech: less delayed response, more spontaneous; psychomotor retardation present, no left hand tremor noted; thought process is organized and goal directed; Thought content: no paranoid delusions noted. no SI/HI expressed. Patient's insight and judgment improving. Diagnostics Vital Signs (24Hr): Vital Signs - 24 hr 01/20/25 19:39 01/21/25 07:35 Temperature 98.2 F 97.8 F Pulse Rate 89 86 Respiratory Rate 16 14 Blood Pressure 96/57 L 114/56 L Pulse Oximetry 97 97 Oxygen Delivery Method Room Air Room Air BMI result Body Mass Index 18.6 Labs 01/14/25 14:07 01/14/25 14:07 Medications Medications Current Medications Acetaminophen (Acetaminophen 325 Mg Tablet) 650 mg PO Q6H PRN PRN Reason: Headache/Pain, Scale 1-10 Last Admin: 01/08/25 19:19 Dose: 650 mg Al Hydroxide/Mg Hydroxide (Magnesium Hydrox/Alum Hydrox 30 Ml Oral.Susp) 30 ml PO Q6H PRN PRN Reason: Heartburn/Nausea Ascorbic Acid (Ascorbic Acid 500 Mg Tablet) 1,000 mg PO DAILY [facility] Last Admin: 01/21/25 08:35 Dose: 1,000 mg Calcium Carbonate (Calcium Carbonate 750 Mg Tab.Chew) 750 mg PO Q6H PRN PRN Reason: Heartburn Last Admin: 01/11/25 17:51 Dose: 750 mg Clomipramine HCl (Clomipramine Hcl 25 Mg Capsule) 50 mg PO BEDTIME [facility] Last Admin: 01/20/25 19:58 Dose: 50 mg Clotrimazole (Clotrimazole 1 % Cream 15 Gm Tube) 1 appl TOPICAL BID [facility]; Protocol Last Admin: 01/21/25 08:38 Dose: Not Given Divalproex Sodium (Divalproex Sodium Er 500 Mg Tab.Er.24h) 500 mg PO BID [facility] Last Admin: 01/21/25 08:35 Dose: 500 mg Hydroxyzine HCl (Hydroxyzine Hcl 25 Mg Tablet) 25 mg PO Q6H PRN PRN Reason: mild anxiety Last Admin: 01/09/25 19:54 Dose: 25 mg Ibuprofen (Ibuprofen 600 Mg Tablet) 600 mg PO Q6H PRN PRN Reason: BOLANOS Lorazepam (Lorazepam 1 Mg Tablet) 1 mg PO TID PRN PRN Reason: Anxiety Last Admin: 01/12/25 19:55 Dose: 1 mg Magnesium Hydroxide (Milk Of Magnesia 30 Ml Oral.Susp) 30 ml PO DAILY PRN PRN Reason: Constipation Last Admin: 01/09/25 10:48 Dose: 30 ml Mirtazapine (Mirtazapine 15 Mg Tablet) 45 mg PO BEDTIME [facility] Last Admin: 01/20/25 19:57 Dose: 45 mg Multivitamins/Vitamin C (Multivitamin Tablet) 1 tab PO DAILY [facility] Last Admin: 01/21/25 08:35 Dose: 1 tab Nicotine Polacrilex (Nicotine Polacrilex 2 Mg Gum) 4 mg BUCCAL Q2H PRN PRN Reason: Nicotine Cravings Ondansetron HCl (Ondansetron Odt 4 Mg Tab.Rapdis) 4 mg TRANSLINGU Q6H PRN PRN Reason: Nausea and Vomiting Last Admin: 01/04/25 20:02 Dose: 4 mg Thiamine HCl (Thiamine Hcl 100 Mg Tablet) 100 mg PO DAILY [facility] Last Admin: 01/21/25 08:35 Dose: 100 mg Allergies Allergies Allergy/AdvReac Type Severity Reaction Status Date / Time No Known Allergies Allergy Verified 12/30/24 11:36 Assessment & Plan Assessment & Plan (1) Encephalopathy: Qualifiers: Encephalopathy type: unspecified encephalopathy Qualified Code(s): G93.40 - Encephalopathy, unspecified Status: Acute Code(s): G93.40 - Encephalopathy, unspecified Assessment and Plan: 39 years old woman with change in mental status after ECT, 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 At this time her examination was nonfocal except mild extrapyramidal features, probably from previous exposure to neuroleptics. My recommendation is to treat her with Depakote 500 mg twice a day for 3 months and then repeat EEG. If okay, and there was no other benefit of Depakote, it could be stopped. (2) Major depressive disorder, recurrent severe without psychotic features: Status: Acute Code(s): F33.2 - Major depressive disorder, recurrent severe without psychotic features Plan Patient is a 39-year-old female, [employer] , with history of MDD, VENKAT, who presents for worsening and overwhelming anxiety and hopes to get ECT treatment. Patient reports depression and anxiety since teenage years. It has worsened significantly over the last year to the point where she has become debilitated; a constant stressor is her house in [place] remaining on the market, unsold; subsequently she has been living with her parents. Patient's depression has been significant and she endorses diminished interest, excessive guilt, low energy, poor concentration, having a force herself to shower... She was sent from the [facility] to start TMS and patient had 1 session this Saturday however her anxiety and depression became so overwhelming these past few days to the point where she could not stop crying or pacing the [place]orzano that she felt unable to wait the full 30 days it takes for T MS to be effective; patient has consistent thoughts that life is not worth living; she says she will not actively take her own life but wishes she would just not wake up. Patient says I feel out of my mind... Patient called providers at the [facility] told her to come to the emergency room. Patient endorses history of trauma but does not disclose; says she has been diagnosed with VENKAT as well as depression. Denies history of any manic episodes or behaviors; no drug or alcohol abuse formulation/clinical reasoning: hx of depression, with limited treatment results, though with limited med trials (effexor, abilify/brexpiprazole- tremors; lexapro, mirtazpine). She is overwhelmed with anxiety and depression -dx of VENKAT? Presents for ECT -will taper off lexapro and mirtazpine as she's been on high doses of both for months with no results. -agrees to start Clomipramine and ECT; discussed lithium but she had some reservations PlAN: cv q15 start Clomipramine 25mg lower Lexapro to 20mg (has been on 40mg for few months) continue MIrtazapine 45mg (will taper) Zyrpexa prn for anxiety/agitation ECT for saturday NPO 01/02: Increase Seroquel to 50 mg HS. Continue current management and treatment plan. ECT Wednesday 01/03: Increase Ativan to 1 mg TID. Hold after 8 PM on nights prior to ECT. 01/04: ECT #1 completed. BOLANOS, memory impairment immediately after. anxious. continue current mgmt. 01/05: calm, cooperative. incr anafranil to 50 mg QHS, decrease lexapro to 15 mg daily. ECT tomorrow, NPO p MN. 01/06: completed ECT #2 without incident. no s/e from medications, reduced s/e from ECT. continue current mgmt. 01/07: remains depressed and anxious. increase clomipramine to 75 mg QHS, decrease lexapro to 10 daily. ECT in the morning. 01/08: completed ECT #3 without incident today. continue current mgmt through saturday, plan to progress in anafranil/lexapro cross-taper on saturday. 01/09 keep same treatment. 01/10 keep same treatment 01/11: less anxious and depressed. focused on improvement, not worries today. ECT #4 completed without incident this morning. increase anafranil to 100 mg tonight and decrease lexapro to 5 mg tomorrow morning. planning to remain in hospital for entire course. 01/13: ECT #5 completed today. mood fine, not depressed, anxiety down. complete ECT #6 on saturday and decide if course should be completed then or further treatments done next week. DC lexapro. 01/14: Appears confused. guarded. flat affect. Patient responding to questions with short answers; reports feeling okay ; staring at T/W during assessment and tilting head side to side; when asked what she was doing, pt smiled and did not respond. Dr. Crawford decreased Zyprexa to 2.5mg PO TID and placed ECT on hold d/t possible ECT delirium. 01/15: remains delirious today, with some unexpected responses such as knowing the month is january yet asserting the season is fall. will continue current mgmt and observe over w/e. ECT for saturday canceld, anafranil dosing decreased to 50 to avoid an anti-Ach component to the delirium. case discussed with pt's mother for 20 minutes. 01/16: continue tx. 01/17: she shows paranoid delusions with some catatonic features, rather than straight delirium. continue current tx. 01/18: more oriented than last saturday, less PMR. continue present medications and supportive care. will observe for improvement. check EEG today. case d/w danielle and agbriel. likely improving ECT-related delirium. 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 started on VPA 500 BID. further ECTs canceled for now. will follow and allow delirium to clear prior to making further Tx plan changes. 01/20: resolving delirium from recent post-ECT seizure activity, hopefully now quashed. continue VPA 500 BID. case discussed with gabriel; likely will not restart ECT and will focus more on medications management. 01/21: MS continues to trend improved. c/o tiredness, heaviness. DC HS zyprexa. next likely change VPA to all at HS and follow level for Sz efficacy. plan to titrate anafranil prior to discharge and decrease remeron as indicated. pt indicates she would like to start discharge planning. case D/W gabriel. Reason for continued inpatient stay Substantial Risk for: inability to function and rapid decompensation Time Spent With Patient Time: Total time managing care of this patient today __35__ minutes.
[2025-01-21] MEDS: Mirtazapine 15 MG TABLET 45 MG PO (19:59)
[2025-01-21 20:00] VITALS: BP 114/62; PULSE 90; RESP 16; TEMP 36.6; O2SAT 99
[2025-01-21] MEDS: clomiPRAMINE HCl 25 MG CAPSULE 50 MG PO (20:00)
[2025-01-21] MEDS: Clotrimazole 1 % Cream 15 GM TUBE 1 APPL TOPICAL (20:02)
[2025-01-22 07:15] VITALS: BP 117/70; PULSE 93; RESP 14; TEMP 36.4; O2SAT 98
[2025-01-22] MEDS: Multivitamin TABLET 1 TAB PO (08:34)
[2025-01-22] MEDS: Thiamine HCL 100 MG TABLET PO (08:34)
[2025-01-22] MEDS: Ascorbic Acid 500 MG TABLET 1000 MG PO (08:34)
[2025-01-22] MEDS: Divalproex Sodium ER 500 MG TAB.ER.24H PO (08:35)
[2025-01-22] MEDS: LORazepam 1 MG TABLET PO (10:41)
--- NOTE | 2025-01-22 14:21 | HO.PSYCHPN ---
Subjective Subjective Date of Service: 01/22/25 Reason For Visit: Crisis Interim History: mood and anxiety significantly better than when came in. asking for more ECT. however, c/o restlessness, constant pacing. tiredness has resolved. sleeping well. hand tremors continue. discussed Tx plan at some length. agreeable to increase anafranil to 75 mg as of tonight and swich VPA to IR formulation and check labs saturday morning. per staff, guarded. visible. taking meds. left hand tremor. no SI/HI/AVH. slept all NOC. Mental Status Exam Mental Status Exam Narrative: Pt is alert and oriented x4; behavior is cooperative. dressed adequately, adequately groomed; mood improved from admission, affect constricted and normo-intense; eye contact appropriate; Speech: less delayed response, more spontaneous; psychomotor retardation present, left hand tremor noted; thought process is organized and goal directed; Thought content: no paranoid delusions noted. no SI/HI expressed. Patient's insight and judgment improving. Diagnostics Vital Signs (24Hr): Vital Signs - 24 hr 01/21/25 20:00 01/22/25 07:15 Temperature 98 F 97.6 F Pulse Rate 90 93 Respiratory Rate 16 14 Blood Pressure 114/62 117/70 Pulse Oximetry 99 98 Oxygen Delivery Method Room Air Room Air BMI result Body Mass Index 18.6 Labs 01/14/25 14:07 01/14/25 14:07 Medications Medications Current Medications Acetaminophen (Acetaminophen 325 Mg Tablet) 650 mg PO Q6H PRN PRN Reason: Headache/Pain, Scale 1-10 Last Admin: 01/08/25 19:19 Dose: 650 mg Al Hydroxide/Mg Hydroxide (Magnesium Hydrox/Alum Hydrox 30 Ml Oral.Susp) 30 ml PO Q6H PRN PRN Reason: Heartburn/Nausea Ascorbic Acid (Ascorbic Acid 500 Mg Tablet) 1,000 mg PO DAILY BREA Last Admin: 01/22/25 08:34 Dose: 1,000 mg Calcium Carbonate (Calcium Carbonate 750 Mg Tab.Chew) 750 mg PO Q6H PRN PRN Reason: Heartburn Last Admin: 01/11/25 17:51 Dose: 750 mg Clomipramine HCl (Clomipramine Hcl 25 Mg Capsule) 75 mg PO BEDTIME [facility] Clotrimazole (Clotrimazole 1 % Cream 15 Gm Tube) 1 appl TOPICAL BID BREA; Protocol Last Admin: 01/22/25 08:36 Dose: Not Given Divalproex Sodium (Divalproex Sodium 500 Mg Tablet.Dr) 500 mg PO BID [facility] Hydroxyzine HCl (Hydroxyzine Hcl 25 Mg Tablet) 25 mg PO Q6H PRN PRN Reason: mild anxiety Last Admin: 01/09/25 19:54 Dose: 25 mg Ibuprofen (Ibuprofen 600 Mg Tablet) 600 mg PO Q6H PRN PRN Reason: BOLANOS Lorazepam (Lorazepam 1 Mg Tablet) 1 mg PO TID PRN PRN Reason: Anxiety Last Admin: 01/22/25 10:41 Dose: 1 mg Magnesium Hydroxide (Milk Of Magnesia 30 Ml Oral.Susp) 30 ml PO DAILY PRN PRN Reason: Constipation Last Admin: 01/09/25 10:48 Dose: 30 ml Mirtazapine (Mirtazapine 15 Mg Tablet) 45 mg PO BEDTIME [facility] Last Admin: 01/21/25 19:59 Dose: 45 mg Multivitamins/Vitamin C (Multivitamin Tablet) 1 tab PO DAILY [facility] Last Admin: 01/22/25 08:34 Dose: 1 tab Nicotine Polacrilex (Nicotine Polacrilex 2 Mg Gum) 4 mg BUCCAL Q2H PRN PRN Reason: Nicotine Cravings Ondansetron HCl (Ondansetron Odt 4 Mg Tab.Rapdis) 4 mg TRANSLINGU Q6H PRN PRN Reason: Nausea and Vomiting Last Admin: 01/04/25 20:02 Dose: 4 mg Thiamine HCl (Thiamine Hcl 100 Mg Tablet) 100 mg PO DAILY [facility] Last Admin: 01/22/25 08:34 Dose: 100 mg Allergies Allergies Allergy/AdvReac Type Severity Reaction Status Date / Time No Known Allergies Allergy Verified 12/30/24 11:36 Assessment & Plan Assessment & Plan (1) Encephalopathy: Qualifiers: Encephalopathy type: unspecified encephalopathy Qualified Code(s): G93.40 - Encephalopathy, unspecified Status: Acute Code(s): G93.40 - Encephalopathy, unspecified Assessment and Plan: 39 years old woman with change in mental status after ECT, 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 At this time her examination was nonfocal except mild extrapyramidal features, probably from previous exposure to neuroleptics. My recommendation is to treat her with Depakote 500 mg twice a day for 3 months and then repeat EEG. If okay, and there was no other benefit of Depakote, it could be stopped. (2) Major depressive disorder, recurrent severe without psychotic features: Status: Acute Code(s): F33.2 - Major depressive disorder, recurrent severe without psychotic features Plan Patient is a 39-year-old female, [employer] , with history of MDD, VENKAT, who presents for worsening and overwhelming anxiety and hopes to get ECT treatment. Patient reports depression and anxiety since teenage years. It has worsened significantly over the last year to the point where she has become debilitated; a constant stressor is her house in [place] remaining on the market, unsold; subsequently she has been living with her parents. Patient's depression has been significant and she endorses diminished interest, excessive guilt, low energy, poor concentration, having a force herself to shower... She was sent from the [place] to start TMS and patient had 1 session this Saturday however her anxiety and depression became so overwhelming these past few days to the point where she could not stop crying or pacing the solorzano that she felt unable to wait the full 30 days it takes for T MS to be effective; patient has consistent thoughts that life is not worth living; she says she will not actively take her own life but wishes she would just not wake up. Patient says I feel out of my mind... Patient called providers at the [place] told her to come to the emergency room. Patient endorses history of trauma but does not disclose; says she has been diagnosed with VENKAT as well as depression. Denies history of any manic episodes or behaviors; no drug or alcohol abuse formulation/clinical reasoning: hx of depression, with limited treatment results, though with limited med trials (effexor, abilify/brexpiprazole- tremors; lexapro, mirtazpine). She is overwhelmed with anxiety and depression -dx of VENKAT? Presents for ECT -will taper off lexapro and mirtazpine as she's been on high doses of both for months with no results. -agrees to start Clomipramine and ECT; discussed lithium but she had some reservations PlAN: cv q15 start Clomipramine 25mg lower Lexapro to 20mg (has been on 40mg for few months) continue MIrtazapine 45mg (will taper) Zyrpexa prn for anxiety/agitation ECT for saturday NPO 01/02: Increase Seroquel to 50 mg HS. Continue current management and treatment plan. ECT Wednesday 01/03: Increase Ativan to 1 mg TID. Hold after 8 PM on nights prior to ECT. 01/04: ECT #1 completed. BOLANOS, memory impairment immediately after. anxious. continue current mgmt. 01/05: calm, cooperative. incr anafranil to 50 mg QHS, decrease lexapro to 15 mg daily. ECT tomorrow, NPO p MN. 01/06: completed ECT #2 without incident. no s/e from medications, reduced s/e from ECT. continue current mgmt. 01/07: remains depressed and anxious. increase clomipramine to 75 mg QHS, decrease lexapro to 10 daily. ECT in the morning. 01/08: completed ECT #3 without incident today. continue current mgmt through saturday, plan to progress in anafranil/lexapro cross-taper on saturday. 01/09 keep same treatment. 01/10 keep same treatment 01/11: less anxious and depressed. focused on improvement, not worries today. ECT #4 completed without incident this morning. increase anafranil to 100 mg tonight and decrease lexapro to 5 mg tomorrow morning. planning to remain in hospital for entire course. 01/13: ECT #5 completed today. mood fine, not depressed, anxiety down. complete ECT #6 on saturday and decide if course should be completed then or further treatments done next week. DC lexapro. 01/14: Appears confused. guarded. flat affect. Patient responding to questions with short answers; reports feeling okay ; staring at T/W during assessment and tilting head side to side; when asked what she was doing, pt smiled and did not respond. Dr. Crawford decreased Zyprexa to 2.5mg PO TID and placed ECT on hold d/t possible ECT delirium. 01/15: remains delirious today, with some unexpected responses such as knowing the month is january yet asserting the season is fall. will continue current mgmt and observe over w/e. ECT for saturday canceld, anafranil dosing decreased to 50 to avoid an anti-Ach component to the delirium. case discussed with pt's mother for 20 minutes. 01/16: continue tx. 01/17: she shows paranoid delusions with some catatonic features, rather than straight delirium. continue current tx. 01/18: more oriented than last saturday, less PMR. continue present medications and supportive care. will observe for improvement. check EEG today. case d/w danielle and gabriel. likely improving ECT-related delirium. 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 started on VPA 500 BID. further ECTs canceled for now. will follow and allow delirium to clear prior to making further Tx plan changes. 01/20: resolving delirium from recent post-ECT seizure activity, hopefully now quashed. continue VPA 500 BID. case discussed with gabriel; likely will not restart ECT and will focus more on medications management. 01/21: MS continues to trend improved. c/o tiredness, heaviness. DC HS zyprexa. next likely change VPA to all at HS and follow level for Sz efficacy. plan to titrate anafranil prior to discharge and decrease remeron as indicated. pt indicates she would like to start discharge planning. case D/W gabriel. 01/22: MS continues to improve,perhaps a bit more affective expression/flexibility today. asking for more ECT, MD informed pt the issue is being investigated. agreeable to increase anafranil to 75 today, change VPA to IR formulation, and check labs saturday. will plan for repeat EEG on saturday and T/C resuming ECT if EEG WNL. case discussed with gabriel. Reason for continued inpatient stay Substantial Risk for: inability to function and rapid decompensation Time Spent With Patient Time: Total time managing care of this patient today __35__ minutes.
[2025-01-22 19:24] VITALS: BP 105/68; PULSE 94; RESP 14; TEMP 37.1; O2SAT 96
[2025-01-22] MEDS: Divalproex Sodium 500 MG TABLET.DR PO (19:58)
[2025-01-22] MEDS: Mirtazapine 15 MG TABLET 45 MG PO (19:58)
[2025-01-22] MEDS: clomiPRAMINE HCl 25 MG CAPSULE 75 MG PO (19:59)
[2025-01-22] MEDS: Clotrimazole 1 % Cream 15 GM TUBE 1 APPL TOPICAL (20:00)
[2025-01-23 08:00] VITALS: BP 106/56; PULSE 87; RESP 16; TEMP 37.2; O2SAT 96
[2025-01-23] MEDS: Thiamine HCL 100 MG TABLET PO (08:33)
[2025-01-23] MEDS: Ascorbic Acid 500 MG TABLET 1000 MG PO (08:33)
[2025-01-23] MEDS: Multivitamin TABLET 1 TAB PO (08:33)
[2025-01-23] MEDS: Divalproex Sodium 500 MG TABLET.DR PO ×2 (08:33→20:03)
--- NOTE | 2025-01-23 09:02 | HO.PSYCHPN ---
Subjective Subjective Date of Service: 01/23/25 Reason For Visit: Crisis Subjective Notes: Conditional Voluntary Interim History: Keeping to self. pacing unit hallway. patient reports feeling tired and anxious ; pt stated, I'm anxious because I keep thinking about finding a job . She reports passive suicidal ideation; pt stated, I wish I could be with God but I don't have a plan at the moment to do anything . per nursing, slept 9 hours last night. Medication Compliance: Yes Side effects from medications: No Mental Status Exam Mental Status Exam Narrative: Pt is alert and oriented; behavior is cooperative. dressed adequately, adequately groomed; mood anxious, affect constricted; eye contact appropriate; Speech: less delayed response, more spontaneous; psychomotor retardation present, left hand tremor noted; thought process is organized and goal directed; Thought content: no paranoid delusions noted. Diagnostics Vital Signs (24Hr): Vital Signs - 24 hr 01/22/25 19:24 Temperature 98.7 F Pulse Rate 94 Respiratory Rate 14 Blood Pressure 105/68 Pulse Oximetry 96 Oxygen Delivery Method Room Air BMI result Body Mass Index 18.6 Labs 01/14/25 14:07 01/14/25 14:07 Medications Medications Current Medications Acetaminophen (Acetaminophen 325 Mg Tablet) 650 mg PO Q6H PRN PRN Reason: Headache/Pain, Scale 1-10 Last Admin: 01/08/25 19:19 Dose: 650 mg Al Hydroxide/Mg Hydroxide (Magnesium Hydrox/Alum Hydrox 30 Ml Oral.Susp) 30 ml PO Q6H PRN PRN Reason: Heartburn/Nausea Ascorbic Acid (Ascorbic Acid 500 Mg Tablet) 1,000 mg PO DAILY [facility] Last Admin: 01/23/25 08:33 Dose: 1,000 mg Calcium Carbonate (Calcium Carbonate 750 Mg Tab.Chew) 750 mg PO Q6H PRN PRN Reason: Heartburn Last Admin: 01/11/25 17:51 Dose: 750 mg Clomipramine HCl (Clomipramine Hcl 25 Mg Capsule) 75 mg PO BEDTIME [facility] Last Admin: 01/22/25 19:59 Dose: 75 mg Clotrimazole (Clotrimazole 1 % Cream 15 Gm Tube) 1 appl TOPICAL BID BREA; Protocol Last Admin: 01/22/25 20:00 Dose: 1 appl Divalproex Sodium (Divalproex Sodium 500 Mg Tablet.Dr) 500 mg PO BID [facility] Last Admin: 01/23/25 08:33 Dose: 500 mg Hydroxyzine HCl (Hydroxyzine Hcl 25 Mg Tablet) 25 mg PO Q6H PRN PRN Reason: mild anxiety Last Admin: 01/09/25 19:54 Dose: 25 mg Ibuprofen (Ibuprofen 600 Mg Tablet) 600 mg PO Q6H PRN PRN Reason: BOLANOS Lorazepam (Lorazepam 1 Mg Tablet) 1 mg PO TID PRN PRN Reason: Anxiety Last Admin: 01/22/25 10:41 Dose: 1 mg Magnesium Hydroxide (Milk Of Magnesia 30 Ml Oral.Susp) 30 ml PO DAILY PRN PRN Reason: Constipation Last Admin: 01/09/25 10:48 Dose: 30 ml Mirtazapine (Mirtazapine 15 Mg Tablet) 45 mg PO BEDTIME [facility] Last Admin: 01/22/25 19:58 Dose: 45 mg Multivitamins/Vitamin C (Multivitamin Tablet) 1 tab PO DAILY [facility] Last Admin: 01/23/25 08:33 Dose: 1 tab Nicotine Polacrilex (Nicotine Polacrilex 2 Mg Gum) 4 mg BUCCAL Q2H PRN PRN Reason: Nicotine Cravings Ondansetron HCl (Ondansetron Odt 4 Mg Tab.Rapdis) 4 mg TRANSLINGU Q6H PRN PRN Reason: Nausea and Vomiting Last Admin: 01/04/25 20:02 Dose: 4 mg Thiamine HCl (Thiamine Hcl 100 Mg Tablet) 100 mg PO DAILY [facility] Last Admin: 01/23/25 08:33 Dose: 100 mg Allergies Allergies Allergy/AdvReac Type Severity Reaction Status Date / Time No Known Allergies Allergy Verified 12/30/24 11:36 Assessment & Plan Assessment & Plan (1) Encephalopathy: Qualifiers: Encephalopathy type: unspecified encephalopathy Qualified Code(s): G93.40 - Encephalopathy, unspecified Status: Acute Code(s): G93.40 - Encephalopathy, unspecified Assessment and Plan: 39 years old woman with change in mental status after ECT, 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 At this time her examination was nonfocal except mild extrapyramidal features, probably from previous exposure to neuroleptics. My recommendation is to treat her with Depakote 500 mg twice a day for 3 months and then repeat EEG. If okay, and there was no other benefit of Depakote, it could be stopped. (2) Major depressive disorder, recurrent severe without psychotic features: Status: Acute Code(s): F33.2 - Major depressive disorder, recurrent severe without psychotic features Plan Patient is a 39-year-old female, [employer] , with history of MDD, VENKAT, who presents for worsening and overwhelming anxiety and hopes to get ECT treatment. Patient reports depression and anxiety since teenage years. It has worsened significantly over the last year to the point where she has become debilitated; a constant stressor is her house in [place] remaining on the market, unsold; subsequently she has been living with her parents. Patient's depression has been significant and she endorses diminished interest, excessive guilt, low energy, poor concentration, having a force herself to shower... She was sent from the [place] to start [place] and patient had 1 session this Saturday however her anxiety and depression became so overwhelming these past few days to the point where she could not stop crying or pacing the [place]orz[place] that she felt unable to wait the full 30 days it takes for T MS to be effective; patient has consistent thoughts that life is not worth living; she says she will not actively take her own life but wishes she would just not wake up. Patient says I feel out of my mind... [place] told her to come to the emergency room. Patient endorses history of trauma but does not disclose; says she has been diagnosed with VENKAT as well as depression. Denies history of any manic episodes or behaviors; no drug or alcohol abuse formulation/clinical reasoning: hx of depression, with limited treatment results, though with limited med trials (effexor, abilify/brexpiprazole- tremors; lexapro, mirtazpine). She is overwhelmed with anxiety and depression -dx of VENKAT? Presents for ECT -will taper off lexapro and mirtazpine as she's been on high doses of both for months with no results. -agrees to start Clomipramine and ECT; discussed lithium but she had some reservations PlAN: cv q15 start Clomipramine 25mg lower Lexapro to 20mg (has been on 40mg for few months) continue MIrtazapine 45mg (will taper) Zyrpexa prn for anxiety/agitation ECT for saturday NPO 01/02: Increase Seroquel to 50 mg HS. Continue current management and treatment plan. ECT Wednesday 01/03: Increase Ativan to 1 mg TID. Hold after 8 PM on nights prior to ECT. 01/04: ECT #1 completed. BOLANOS, memory impairment immediately after. anxious. continue current mgmt. 01/05: calm, cooperative. incr anafranil to 50 mg QHS, decrease lexapro to 15 mg daily. ECT tomorrow, NPO p MN. 01/06: completed ECT #2 without incident. no s/e from medications, reduced s/e from ECT. continue current mgmt. 01/07: remains depressed and anxious. increase clomipramine to 75 mg QHS, decrease lexapro to 10 daily. ECT in the morning. 01/08: completed ECT #3 without incident today. continue current mgmt through saturday, plan to progress in anafranil/lexapro cross-taper on saturday. 01/09 keep same treatment. 01/10 keep same treatment 01/11: less anxious and depressed. focused on improvement, not worries today. ECT #4 completed without incident this morning. increase anafranil to 100 mg tonight and decrease lexapro to 5 mg tomorrow morning. planning to remain in hospital for entire course. 01/13: ECT #5 completed today. mood fine, not depressed, anxiety down. complete ECT #6 on saturday and decide if course should be completed then or further treatments done next week. DC lexapro. 01/14: Appears confused. guarded. flat affect. Patient responding to questions with short answers; reports feeling okay ; staring at T/W during assessment and tilting head side to side; when asked what she was doing, pt smiled and did not respond. Dr. Crawford decreased Zyprexa to 2.5mg PO TID and placed ECT on hold d/t possible ECT delirium. 01/15: remains delirious today, with some unexpected responses such as knowing the month is january yet asserting the season is fall. will continue current mgmt and observe over w/e. ECT for saturday canceld, anafranil dosing decreased to 50 to avoid an anti-Ach component to the delirium. case discussed with pt's mother for 20 minutes. 01/16: continue tx. 01/17: she shows paranoid delusions with some catatonic features, rather than straight delirium. continue current tx. 01/18: more oriented than last saturday, less PMR. continue present medications and supportive care. will observe for improvement. check EEG today. case d/w danielle and gabriel. likely improving ECT-related delirium. 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 started on VPA 500 BID. further ECTs canceled for now. will follow and allow delirium to clear prior to making further Tx plan changes. 01/20: resolving delirium from recent post-ECT seizure activity, hopefully now quashed. continue VPA 500 BID. case discussed with gabriel; likely will not restart ECT and will focus more on medications management. 01/21: MS continues to trend improved. c/o tiredness, heaviness. DC HS zyprexa. next likely change VPA to all at HS and follow level for Sz efficacy. plan to titrate anafranil prior to discharge and decrease remeron as indicated. pt indicates she would like to start discharge planning. case D/W gabriel. 01/22: MS continues to improve,perhaps a bit more affective expression/flexibility today. asking for more ECT, MD informed pt the issue is being investigated. agreeable to increase anafranil to 75 today, change VPA to IR formulation, and check labs saturday. will plan for repeat EEG on saturday and T/C resuming ECT if EEG WNL. case discussed with gabriel. 01/23: Keeping to self. pacing unit hallway. patient reports feeling tired and anxious ; pt stated, I'm anxious because I keep thinking about finding a job . She reports passive suicidal ideation; pt stated, I wish I could be with God but I don't have a plan at the moment to do anything . per nursing, slept 9 hours last night. continue tx plan Patient educated on: medication risk/benefits Reason for continued inpatient stay Substantial Risk for: med/psych decompensation Time Spent With Patient Time: Total time managing care of this patient today _20___ minutes.
[2025-01-23] MEDS: guaiFENesin LA 600 MG TAB.ER.12H PO (10:51)
[2025-01-23 19:47] VITALS: BP 109/70; PULSE 87; RESP 16; TEMP 36.4; O2SAT 98
[2025-01-23] MEDS: clomiPRAMINE HCl 25 MG CAPSULE 75 MG PO (20:03)
[2025-01-23] MEDS: Mirtazapine 15 MG TABLET 45 MG PO (20:03)
[2025-01-24 07:35] LABS: MANUAL DIFF FLAG NO
[2025-01-24 07:42] LABS: Basophils Absolute Auto 0.1 X10*3/uL (0.0-0.2); Basophils Percent Auto 1.8 % (0-2); Eosinophils Absolute Auto 0.3 X10*3/uL (0.0-0.4); Eosinophils Percent Auto 8.4 % (0-4); Hematocrit 40.4 % (37.0-47.0); Hemoglobin 13.2 g/dl (12.0-16.0); Imm Gran Abs Auto 0.02 X10*3/uL (0.00-0.03); Imm Gran Pct Auto 0.6 % (0.0-0.4); Lymphocytes Absolute Auto 1.6 X10*3/uL (1.2-4.9); Lymphocytes Percent Auto 48.7 % (20-40); Mean Corpuscular HGB Conc 32.7 g/dl (31.0-35.0); Mean Corpuscular Hemoglobin 31.4 pg (27.0-33.0); Mean Platelet Volume 9.4 fL (9.4-12.3); Monocytes Absolute Auto 0.3 X10*3/uL (0.1-1.2); Monocytes Percent Auto 7.8 % (2-11); Neutrophils Absolute Auto 1.1 x10*3/uL (2.0-8.3); Neutrophils Percent Auto 32.7 % (45-73); Platelet Count 305 X10*3/uL (160-400); Red Blood Count 4.21 X10*6/uL (4.20-5.50); Red Cell Distribution Width 12.1 % (11.0-16.0); White Blood Count 3.4 X10*3/uL (4.8-10.8)
[2025-01-24 07:45] LABS: Ammonia 39 umol/L (13-55)
[2025-01-24 07:53] LABS: Valproate 59.2 mcg/mL (50.0-100.0)
[2025-01-24 07:54] LABS: Alanine Aminotransferase 26 U/L (0-31); Albumin Level 3.3 g/dL (3.5-5.0); Alkaline Phosphatase 47 U/L (39-117); Aspartate Amino Transferase 22 U/L (5-31); Bilirubin Direct < 0.2 mg/dL (0.0-0.5); Bilirubin Total 0.2 mg/dL (0.0-1.0); Total Protein 5.9 g/dL (6.5-8.0)
[2025-01-24 08:00] VITALS: BP 100/57; PULSE 78; RESP 16; TEMP 36.8; O2SAT 99
[2025-01-24] MEDS: Multivitamin TABLET 1 TAB PO (08:36)
[2025-01-24] MEDS: Divalproex Sodium 500 MG TABLET.DR PO ×2 (08:36→20:21)
[2025-01-24] MEDS: Thiamine HCL 100 MG TABLET PO (08:36)
[2025-01-24] MEDS: Ascorbic Acid 500 MG TABLET 1000 MG PO (08:36)
--- NOTE | 2025-01-24 08:58 | P.PNPSI_ITS ---
Subjective Subjective Date of Service: 01/24/25 Reason For Visit: Crisis Interim History: pacing unit hallway. patient continues to report feeling anxious and focused on job. Hoping she can continue ECT. per nursing, slept 9 hours last night. Medication Compliance: Yes Side effects from medications: No Mental Status Exam Mental Status Exam Narrative: Pt is alert and oriented; behavior is cooperative. dressed adequately, adequately groomed; mood anxious, affect constricted; eye contact appropriate; Speech: less delayed response, more spontaneous; psychomotor retardation present, left hand tremor noted; thought process is organized and goal directed; Thought content: no paranoid delusions noted. Diagnostics Vital Signs (24Hr): Vital Signs - 24 hr 01/23/25 19:47 01/24/25 08:00 Temperature 97.6 F 98.3 F Pulse Rate 87 78 Respiratory Rate 16 16 Blood Pressure 109/70 100/57 L Pulse Oximetry 98 99 Oxygen Delivery Method Room Air Room Air BMI result Body Mass Index 18.6 Labs 01/24/25 07:30 01/14/25 14:07 Labs: Laboratory Results - last 48 hr 01/24/25 07:30 WBC 3.4 L RBC 4.21 Hgb 13.2 Hct 40.4 MCV 96.0 MCH 31.4 MCHC 32.7 RDW 12.1 Plt Count 305 D MPV 9.4 Immature Gran % (Auto) 0.6 H Neut % (Auto) 32.7 L Lymph % (Auto) 48.7 H [place] % (Auto) 7.8 Eos % (Auto) 8.4 H Baso % (Auto) 1.8 Lymph # (Auto) 1.6 [place] # (Auto) 0.3 Eos # (Auto) 0.3 Baso # (Auto) 0.1 Abs Immat Gran (auto) 0.02 Absolute Neuts (auto) 1.1 L Absolute Nucleated RBC 0.000 Nucleated RBC % (auto) 0.0 Total Bilirubin 0.2 Direct Bilirubin < 0.2 AST 22 ALT 26 Alkaline Phosphatase 47 Ammonia 39 Total Protein 5.9 L Albumin 3.3 L Valproic Acid 59.2 Medications Medications Current Medications Acetaminophen (Acetaminophen 325 Mg Tablet) 650 mg PO Q6H PRN PRN Reason: Headache/Pain, Scale 1-10 Last Admin: 01/08/25 19:19 Dose: 650 mg Al Hydroxide/Mg Hydroxide (Magnesium Hydrox/Alum Hydrox 30 Ml Oral.Susp) 30 ml PO Q6H PRN PRN Reason: Heartburn/Nausea Ascorbic Acid (Ascorbic Acid 500 Mg Tablet) 1,000 mg PO DAILY [facility] Last Admin: 01/24/25 08:36 Dose: 1,000 mg Calcium Carbonate (Calcium Carbonate 750 Mg Tab.Chew) 750 mg PO Q6H PRN PRN Reason: Heartburn Last Admin: 01/11/25 17:51 Dose: 750 mg Clomipramine HCl (Clomipramine Hcl 25 Mg Capsule) 75 mg PO BEDTIME [facility] Last Admin: 01/23/25 20:03 Dose: 75 mg Clotrimazole (Clotrimazole 1 % Cream 15 Gm Tube) 1 appl TOPICAL BID [facility]; Protocol Last Admin: 01/24/25 08:37 Dose: Not Given Divalproex Sodium (Divalproex Sodium 500 Mg Tablet.Dr) 500 mg PO BID [facility] Last Admin: 01/24/25 08:36 Dose: 500 mg Guaifenesin (Guaifenesin La 600 Mg Tab.Er.12h) 600 mg PO BID PRN PRN Reason: Cough Last Admin: 01/23/25 10:51 Dose: 600 mg Hydroxyzine HCl (Hydroxyzine Hcl 25 Mg Tablet) 25 mg PO Q6H PRN PRN Reason: mild anxiety Last Admin: 01/09/25 19:54 Dose: 25 mg Ibuprofen (Ibuprofen 600 Mg Tablet) 600 mg PO Q6H PRN PRN Reason: BOLANOS Lorazepam (Lorazepam 1 Mg Tablet) 1 mg PO TID PRN PRN Reason: Anxiety Last Admin: 01/22/25 10:41 Dose: 1 mg Magnesium Hydroxide (Milk Of Magnesia 30 Ml Oral.Susp) 30 ml PO DAILY PRN PRN Reason: Constipation Last Admin: 01/09/25 10:48 Dose: 30 ml Mirtazapine (Mirtazapine 15 Mg Tablet) 45 mg PO BEDTIME [facility] Last Admin: 01/23/25 20:03 Dose: 45 mg Multivitamins/Vitamin C (Multivitamin Tablet) 1 tab PO DAILY [facility] Last Admin: 01/24/25 08:36 Dose: 1 tab Nicotine Polacrilex (Nicotine Polacrilex 2 Mg Gum) 4 mg BUCCAL Q2H PRN PRN Reason: Nicotine Cravings Ondansetron HCl (Ondansetron Odt 4 Mg Tab.Rapdis) 4 mg TRANSLINGU Q6H PRN PRN Reason: Nausea and Vomiting Last Admin: 01/04/25 20:02 Dose: 4 mg Thiamine HCl (Thiamine Hcl 100 Mg Tablet) 100 mg PO DAILY [facility] Last Admin: 01/24/25 08:36 Dose: 100 mg Allergies Allergies Allergy/AdvReac Type Severity Reaction Status Date / Time No Known Allergies Allergy Verified 12/30/24 11:36 Assessment & Plan Assessment & Plan (1) Encephalopathy: Qualifiers: Encephalopathy type: unspecified encephalopathy Qualified Code(s): G 93.40 - Encephalopathy, unspecified Status: Acute Code(s): G93.40 - Encephalopathy, unspecified Assessment and Plan: 39 years old woman with change in mental status after ECT, 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 At this time her examination was nonfocal except mild extrapyramidal features, probably from previous exposure to neuroleptics. My recommendation is to treat her with Depakote 500 mg twice a day for 3 months and then repeat EEG. If okay, and there was no other benefit of Depakote, it could be stopped. (2) Major depressive disorder, recurrent severe without psychotic features: Status: Acute Code(s): F33.2 - Major depressive disorder, recurrent severe without psychotic features Plan Patient is a 39-year-old female, [employer] , with history of MDD, VENKAT, who presents for worsening and overwhelming anxiety and hopes to get ECT treatment. Patient reports depression and anxiety since teenage years. It has worsened significantly over the last year to the point where she has become debilitated; a constant stressor is her house in [place] remaining on the market, unsold; subsequently she has been living with her parents. Patient's depression has been significant and she endorses diminished interest, excessive guilt, low energy, poor concentration, having a force herself to shower... [place] was [place] the [place] to start [place] and patient had 1 session this Saturday however her anxiety and depression became so overwhelming these past few days to the point where she could not stop crying or pacing the solorzano that she felt unable to wait the full 30 days it takes for T MS to be effective; patient has consistent thoughts that life is not worth living; she says she will not actively take her own life but wishes she would just not wake up. Patient says I feel out of my mind... Patient called providers at the [facility] told her to come to the emergency room. Patient endorses history of trauma but does not disclose; says she has been diagnosed with VENKAT as well as depression. Denies history of any manic episodes or behaviors; no drug or alcohol abuse formulation/clinical reasoning: hx of depression, with limited treatment results, though with limited med trials (effexor, abilify/brexpiprazole- tremors; lexapro, mirtazpine). She is overwhelmed with anxiety and depression -dx of VENKAT? Presents for ECT -will taper off lexapro and mirtazpine as she's been on high doses of both for months with no results. -agrees to start Clomipramine and ECT; discussed lithium but she had some reservations PlAN: cv q15 start Clomipramine 25mg lower Lexapro to 20mg (has been on 40mg for few months) continue MIrtazapine 45mg (will taper) Zyrpexa prn for anxiety/agitation ECT for saturday NPO 01/02: Increase Seroquel to 50 mg HS. Continue current management and treatment plan. ECT Wednesday 01/03: Increase Ativan to 1 mg TID. Hold after 8 PM on nights prior to ECT. 01/04: ECT #1 completed. BOLANOS, memory impairment immediately after. anxious. continue current mgmt. 01/05: calm, cooperative. incr anafranil to 50 mg QHS, decrease lexapro to 15 mg daily. ECT tomorrow, NPO p [place]. 01/06: completed ECT #2 without incident. no s/e from medications, reduced s/e from ECT. continue current mgmt. 01/07: remains depressed and anxious. increase clomipramine to 75 mg QHS, decrease lexapro to 10 daily. ECT in the morning. 01/08: completed ECT #3 without incident today. continue current mgmt through saturday, plan to progress in anafranil/lexapro cross-taper on saturday. 01/09 keep same treatment. 01/10 keep same treatment 01/11: less anxious and depressed. focused on improvement, not worries today. ECT #4 completed without incident this morning. increase anafranil to 100 mg tonight and decrease lexapro to 5 mg tomorrow morning. planning to remain in hospital for entire course. 01/13: ECT #5 completed today. mood fine, not depressed, anxiety down. complete ECT #6 on saturday and decide if course should be completed then or further treatments done next week. DC lexapro. 01/14: Appears confused. guarded. flat affect. Patient responding to questions with short answers; reports feeling okay ; staring at T/W during assessment and tilting head side to side; when asked what she was doing, pt smiled and did not respond. Dr. Crawford decreased Zyprexa to 2.5mg PO TID and placed ECT on hold d/t possible ECT delirium. 01/15: remains delirious today, with some unexpected responses such as knowing the month is january yet asserting the season is fall. will continue current mgmt and observe over w/e. ECT for saturday canceld, anafranil dosing decreased to 50 to avoid an anti-Ach component to the delirium. case discussed with pt's mother for 20 minutes. 01/16: continue tx. 01/17: she shows paranoid delusions with some catatonic features, rather than straight delirium. continue current tx. 01/18: more oriented than last saturday, less PMR. continue present medications and supportive care. will observe for improvement. check EEG today. case d/w danielle and gabriel. likely improving ECT-related delirium. 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 started on VPA 500 BID. further ECTs canceled for now. will follow and allow delirium to clear prior to making further Tx plan changes. 01/20: resolving delirium from recent post-ECT seizure activity, hopefully now quashed. continue VPA 500 BID. case discussed with gabriel; likely will not restart ECT and will focus more on medications management. 01/21: MS continues to trend improved. c/o tiredness, heaviness. DC HS zyprexa. next likely change VPA to all at HS and follow level for Sz efficacy. plan to titrate anafranil prior to discharge and decrease remeron as indicated. pt indicates she would like to start discharge planning. case D/W gabriel. 01/22: MS continues to improve,perhaps a bit more affective expression/flexibility today. asking for more ECT, informed pt the issue is being investigated. agreeable to increase anafranil to 75 today, change VPA to IR formulation, and check labs saturday. will plan for repeat EEG on saturday and T/C resuming ECT if EEG WNL. case discussed with gabriel. 01/23: Keeping to self. pacing unit hallway. patient reports feeling tired and anxious ; pt stated, I'm anxious because I keep thinking about finding a job . She reports passive suicidal ideation; pt stated, I wish I could be with God but I don't have a plan at the moment to do anything . per nursing, slept 9 hours last night. continue tx plan 01/24: continue tx plan Patient educated on: medication risk/benefits Reason for continued inpatient stay Substantial Risk for: med/psych decompensation Time Spent With Patient Time: Total time managing care of this patient today _10___ minutes.
[2025-01-24] MEDS: Acetaminophen 325 MG TABLET 650 MG PO (16:07)
[2025-01-24 20:00] VITALS: BP 101/61; PULSE 87; RESP 16; TEMP 36.4; O2SAT 97
[2025-01-24] MEDS: clomiPRAMINE HCl 25 MG CAPSULE 75 MG PO (20:21)
[2025-01-24] MEDS: Mirtazapine 15 MG TABLET 45 MG PO (20:21)
--- NOTE | 2025-01-25 | EEG_ITS ---
This is a 16-channel EEG with an EKG lead. The patient is reported awake during the tracing. Background EEG rhythm is mixed theta, beta with occasional left temporal sharp waves. Photic stimulation did not produce any significant driving. Hyperventilation was not performed. IMPRESSION: Mildly abnormal EEG suggestive of left temporal irritability. MD SNEHAL Wright/[place] / [phone]
[2025-01-25] MEDS: Ascorbic Acid 500 MG TABLET 1000 MG PO (08:30)
[2025-01-25] MEDS: Divalproex Sodium 500 MG TABLET.DR PO ×2 (08:30→19:59)
[2025-01-25] MEDS: Thiamine HCL 100 MG TABLET PO (08:31)
[2025-01-25] MEDS: Multivitamin TABLET 1 TAB PO (08:31)
[2025-01-25 08:56] VITALS: BP 115/64; PULSE 96; RESP 17; TEMP 36.4; O2SAT 98
--- NOTE | 2025-01-25 12:55 | P.PNPSI_ITS ---
Subjective Subjective Date of Service: 01/25/25 Reason For Visit: Crisis Interim History: well oriented. sleeping well, mood and anxiety improved from admission, but not great. asking to resume ECT. c/o restlessness. discussed at length plan to re-do EEG and resume ECT if EEG WNL, while continuing VPA. per staff, dep/anx 6. taking meds. left hand tremor. depression and anxiety are not problematic today. ruminating about job. pacing. Mental Status Exam Mental Status Exam Narrative: Pt is alert and oriented x4; behavior is cooperative. dressed adequately, adequately groomed; mood improved from admission, affect flexible and normo- intense; eye contact appropriate; Speech: no RUFUS, spontaneous; less psychomotor retardation present, left hand tremor not noted; thought process is organized and goal directed; Thought content: no paranoid delusions noted. no SI/HI expressed. Patient's insight and judgment improving. Diagnostics Vital Signs (24Hr): Vital Signs - 24 hr 01/24/25 20:00 01/25/25 08:56 Temperature 97.6 F 97.5 F Pulse Rate 87 96 Respiratory Rate 16 17 Blood Pressure 101/61 115/64 Pulse Oximetry 97 98 Oxygen Delivery Method Room Air BMI result Body Mass Index 18.6 Labs 01/24/25 07:30 01/14/25 14:07 Labs: Laboratory Results - last 48 hr 01/24/25 07:30 WBC 3.4 L RBC 4.21 Hgb 13.2 Hct 40.4 MCV 96.0 MCH 31.4 MCHC 32.7 RDW 12.1 Plt Count 305 D MPV 9.4 Immature Gran % (Auto) 0.6 H Neut % (Auto) 32.7 L Lymph % (Auto) 48.7 H [place] % (Auto) 7.8 Eos % (Auto) 8.4 H Baso % (Auto) 1.8 Lymph # (Auto) 1.6 [place] # (Auto) 0.3 Eos # (Auto) 0.3 Baso # (Auto) 0.1 Abs Immat Gran (auto) 0.02 Absolute Neuts (auto) 1.1 L Absolute Nucleated RBC 0.000 Nucleated RBC % (auto) 0.0 Total Bilirubin 0.2 Direct Bilirubin < 0.2 AST 22 ALT 26 Alkaline Phosphatase 47 Ammonia 39 Total Protein 5.9 L Albumin 3.3 L Valproic Acid 59.2 Medications Medications Current Medications Acetaminophen (Acetaminophen 325 Mg Tablet) 650 mg PO Q6H PRN PRN Reason: Headache/Pain, Scale 1-10 Last Admin: 01/24/25 16:07 Dose: 650 mg Al Hydroxide/Mg Hydroxide (Magnesium Hydrox/Alum Hydrox 30 Ml Oral.Susp) 30 ml PO Q6H PRN PRN Reason: Heartburn/Nausea Ascorbic Acid (Ascorbic Acid 500 Mg Tablet) 1,000 mg PO DAILY [facility] Last Admin: 01/25/25 08:30 Dose: 1,000 mg Calcium Carbonate (Calcium Carbonate 750 Mg Tab.Chew) 750 mg PO Q6H PRN PRN Reason: Heartburn Last Admin: 01/11/25 17:51 Dose: 750 mg Clomipramine HCl (Clomipramine Hcl 25 Mg Capsule) 75 mg PO BEDTIME [facility] Last Admin: 01/24/25 20:21 Dose: 75 mg Clotrimazole (Clotrimazole 1 % Cream 15 Gm Tube) 1 appl TOPICAL BID [facility]; Protocol Last Admin: 01/25/25 08:32 Dose: Not Given Divalproex Sodium (Divalproex Sodium 500 Mg Tablet.Dr) 500 mg PO BID [facility] Last Admin: 01/25/25 08:30 Dose: 500 mg Guaifenesin (Guaifenesin La 600 Mg Tab.Er.12h) 600 mg PO BID PRN PRN Reason: Cough Last Admin: 01/23/25 10:51 Dose: 600 mg Hydroxyzine HCl (Hydroxyzine Hcl 25 Mg Tablet) 25 mg PO Q6H PRN PRN Reason: mild anxiety Last Admin: 01/09/25 19:54 Dose: 25 mg Ibuprofen (Ibuprofen 600 Mg Tablet) 600 mg PO Q6H PRN PRN Reason: BOLANOS Lorazepam (Lorazepam 1 Mg Tablet) 1 mg PO TID PRN PRN Reason: Anxiety Last Admin: 01/22/25 10:41 Dose: 1 mg Magnesium Hydroxide (Milk Of Magnesia 30 Ml Oral.Susp) 30 ml PO DAILY PRN PRN Reason: Constipation Last Admin: 01/09/25 10:48 Dose: 30 ml Mirtazapine (Mirtazapine 15 Mg Tablet) 45 mg PO BEDTIME [facility] Last Admin: 01/24/25 20:21 Dose: 45 mg Multivitamins/Vitamin C (Multivitamin Tablet) 1 tab PO DAILY [facility] Last Admin: 01/25/25 08:31 Dose: 1 tab Nicotine Polacrilex (Nicotine Polacrilex 2 Mg Gum) 4 mg BUCCAL Q2H PRN PRN Reason: Nicotine Cravings Ondansetron HCl (Ondansetron Odt 4 Mg Tab.Rapdis) 4 mg TRANSLINGU Q6H PRN PRN Reason: Nausea and Vomiting Last Admin: 01/04/25 20:02 Dose: 4 mg Thiamine HCl (Thiamine Hcl 100 Mg Tablet) 100 mg PO DAILY [facility] Last Admin: 01/25/25 08:31 Dose: 100 mg Allergies Allergies Allergy/AdvReac Type Severity Reaction Status Date / Time No Known Allergies Allergy Verified 12/30/24 11:36 Assessment & Plan Assessment & Plan (1) Encephalopathy: Qualifiers: Encephalopathy type: unspecified encephalopathy Qualified Code(s): G 93.40 - Encephalopathy, unspecified Status: Acute Code(s): G93.40 - Encephalopathy, unspecified Assessment and Plan: 39 years old woman with change in mental status after ECT, 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 At this time her examination was nonfocal except mild extrapyramidal features, probably from previous exposure to neuroleptics. My recommendation is to treat her with Depakote 500 mg twice a day for 3 months and then repeat EEG. If okay, and there was no other benefit of Depakote, it could be stopped. (2) Major depressive disorder, recurrent severe without psychotic features: Status: Acute Code(s): F33.2 - Major depressive disorder, recurrent severe without psychotic features Plan Patient is a 39-year-old female, [employer] , with history of MDD, VENKAT, who presents for worsening and overwhelming anxiety and hopes to get ECT treatment. Patient reports depression and anxiety since teenage years. It has worsened significantly over the last year to the point where she has become debilitated; a constant stressor is her house in [place] remaining on the market, unsold; subsequently she has been living with her parents. Patient's depression has been significant and she endorses diminished interest, excessive guilt, low energy, poor concentration, having a force herself to shower... She was sent [place] the [place] to start [place] and patient had 1 session this Saturday however her anxiety and depression became so overwhelming these past few days to the point where she could not stop crying or pacing the [place] that she felt unable to wait the full 30 days it takes for T MS to be effective; patient has consistent thoughts that life is not worth living; she says she will not actively take her own life but wishes she would just not wake up. Patient says I feel out of my mind... Patient called providers at the [place] told her to come to the emergency room. Patient endorses history of trauma but does not disclose; says she has been diagnosed with VENKAT as well as depression. Denies history of any manic episodes or behaviors; no drug or alcohol abuse formulation/clinical reasoning: hx of depression, with limited treatment results, though with limited med trials (effexor, abilify/brexpiprazole- tremors; lexapro, mirtazpine). She is overwhelmed with anxiety and depression -dx of VENKAT? Presents for ECT -will taper off lexapro and mirtazpine as she's been on high doses of both for months with no results. -agrees to start Clomipramine and ECT; discussed lithium but she had some reservations PlAN: cv q15 start Clomipramine 25mg lower Lexapro to 20mg (has been on 40mg for few months) continue MIrtazapine 45mg (will taper) Zyrpexa prn for anxiety/agitation ECT for saturday NPO 01/02: Increase Seroquel to 50 mg HS. Continue current management and treatment plan. ECT Wednesday 01/03: Increase Ativan to 1 mg TID. Hold after 8 PM on nights prior to ECT. 01/04: ECT #1 completed. BOLANOS, memory impairment immediately after. anxious. continue current mgmt. 01/05: calm, cooperative. incr anafranil to 50 mg QHS, decrease lexapro to 15 mg daily. ECT tomorrow, NPO p [place]. 01/06: completed ECT #2 without incident. no s/e from medications, reduced s/e from ECT. continue current mgmt. 01/07: remains depressed and anxious. increase clomipramine to 75 mg QHS, decrease lexapro to 10 daily. ECT in the morning. 01/08: completed ECT #3 without incident today. continue current mgmt through saturday, plan to progress in anafranil/lexapro cross-taper on saturday. 01/09 keep same treatment. 01/10 keep same treatment 01/11: less anxious and depressed. focused on improvement, not worries today. ECT #4 completed without incident this morning. increase anafranil to 100 mg tonight and decrease lexapro to 5 mg tomorrow morning. planning to remain in hospital for entire course. 01/13: ECT #5 completed today. mood fine, not depressed, anxiety down. complete ECT #6 on saturday and decide if course should be completed then or further treatments done next week. DC lexapro. 01/14: Appears confused. guarded. flat affect. Patient responding to questions with short answers; reports feeling okay ; staring at T/W during assessment and tilting head side to side; when asked what she was doing, pt smiled and did not respond. Dr. Crawford decreased Zyprexa to 2.5mg PO TID and placed ECT on hold d/t possible ECT delirium. 01/15: remains delirious today, with some unexpected responses such as knowing the month is january yet asserting the season is fall. will continue current mgmt and observe over w/e. ECT for saturday canceld, anafranil dosing decreased to 50 to avoid an anti-Ach component to the delirium. case discussed with pt's mother for 20 minutes. 01/16: continue tx. 01/17: she shows paranoid delusions with some catatonic features, rather than straight delirium. continue current tx. 01/18: more oriented than last saturday, less PMR. continue present medications and supportive care. will observe for improvement. check EEG today. case d/w danielle and gabriel. likely improving ECT-related delirium. 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 started on VPA 500 BID. further ECTs canceled for now. will follow and allow delirium to clear prior to making further Tx plan changes. 01/20: resolving delirium from recent post-ECT seizure activity, hopefully now quashed. continue VPA 500 BID. case discussed with gabriel; likely will not restart ECT and will focus more on medications management. 01/21: MS continues to trend improved. c/o tiredness, heaviness. DC HS zyprexa. next likely change VPA to all at HS and follow level for Sz efficacy. plan to titrate anafranil prior to discharge and decrease remeron as indicated. pt indicates she would like to start discharge planning. case D/W gabriel. 01/22: MS continues to improve,perhaps a bit more affective expression/flexibility today. asking for more ECT, informed pt the issue is being investigated. agreeable to increase anafranil to 75 today, change VPA to IR formulation, and check labs saturday. will plan for repeat EEG on saturday and T/C resuming ECT if EEG WNL. case discussed with gabriel. 01/23: Keeping to self. pacing unit hallway. patient reports feeling tired and anxious ; pt stated, I'm anxious because I keep thinking about finding a job . She reports passive suicidal ideation; pt stated, I wish I could be with God but I don't have a plan at the moment to do anything . per nursing, slept 9 hours last night. continue tx plan 01/24: continue tx plan 01/25: less PMR, no RUFUS, speech spontaneous, affect flexible, cognitively intact. recheck EEG today, if WNL plan to resume ECT on weds. titrate anafranil to 100 prior to discharge. Reason for continued inpatient stay Substantial Risk for: harm to self, inability to function and rapid decompensation Time Spent With Patient Time: Total time managing care of this patient today __35__ minutes.
[2025-01-25] MEDS: Clotrimazole 1 % Cream 15 GM TUBE 1 APPL TOPICAL (19:58)
[2025-01-25] MEDS: Mirtazapine 15 MG TABLET 45 MG PO (19:59)
[2025-01-25] MEDS: clomiPRAMINE HCl 25 MG CAPSULE 75 MG PO (19:59)
[2025-01-25 20:00] VITALS: BP 98/55; PULSE 79; RESP 14; TEMP 36.8; O2SAT 96
[2025-01-26 07:39] VITALS: BP 91/55; PULSE 95; RESP 14; TEMP 37.1; O2SAT 98
[2025-01-26] MEDS: Divalproex Sodium 500 MG TABLET.DR PO ×2 (08:27→20:03)
[2025-01-26] MEDS: Multivitamin TABLET 1 TAB PO (08:27)
[2025-01-26] MEDS: Ascorbic Acid 500 MG TABLET 1000 MG PO (08:27)
[2025-01-26] MEDS: Thiamine HCL 100 MG TABLET PO (08:27)
--- NOTE | 2025-01-26 15:09 | P.PNPSI_ITS ---
Subjective Subjective Date of Service: 01/26/25 Reason For Visit: Crisis Interim History: appears for anxious, intense. waiting for MD outside morning report room. asking about EEG reading and if ECT will be happening tomorrow. c/o hand tremor, reports restlessness continues. per staff, taking meds, brighter, easier to engage. sleeping better. slept 8 hours. Mental Status Exam Mental Status Exam Narrative: Pt is alert and oriented x4; behavior is cooperative. dressed adequately, adequately groomed; mood improved from admission, affect flexible and hyper- intense; eye contact appropriate; Speech: no RUFUS, spontaneous; no psychomotor retardation present, left hand tremor not noted; thought process is organized and goal directed; Thought content: no paranoid delusions noted. no SI/HI expressed. Patient's insight and judgment improving. Diagnostics Vital Signs (24Hr): Vital Signs - 24 hr 01/25/25 20:00 01/26/25 07:39 Temperature 98.2 F 98.7 F Pulse Rate 79 95 Respiratory Rate 14 14 Blood Pressure 98/55 L 91/55 L Pulse Oximetry 96 98 Oxygen Delivery Method Room Air Room Air BMI result Body Mass Index 18.6 Labs 01/24/25 07:30 01/14/25 14:07 Medications Medications Current Medications Acetaminophen (Acetaminophen 325 Mg Tablet) 650 mg PO Q6H PRN PRN Reason: Headache/Pain, Scale 1-10 Last Admin: 01/24/25 16:07 Dose: 650 mg Al Hydroxide/Mg Hydroxide (Magnesium Hydrox/Alum Hydrox 30 Ml Oral.Susp) 30 ml PO Q6H PRN PRN Reason: Heartburn/Nausea Ascorbic Acid (Ascorbic Acid 500 Mg Tablet) 1,000 mg PO DAILY [facility] Last Admin: 01/26/25 08:27 Dose: 1,000 mg Calcium Carbonate (Calcium Carbonate 750 Mg Tab.Chew) 750 mg PO Q6H PRN PRN Reason: Heartburn Last Admin: 01/11/25 17:51 Dose: 750 mg Clomipramine HCl (Clomipramine Hcl 25 Mg Capsule) 75 mg PO BEDTIME [facility] Last Admin: 01/25/25 19:59 Dose: 75 mg Clotrimazole (Clotrimazole 1 % Cream 15 Gm Tube) 1 appl TOPICAL BID [facility]; Protocol Last Admin: 01/26/25 08:32 Dose: Not Given Divalproex Sodium (Divalproex Sodium 500 Mg Tablet.Dr) 500 mg PO BID [facility] Last Admin: 01/26/25 08:27 Dose: 500 mg Guaifenesin (Guaifenesin La 600 Mg Tab.Er.12h) 600 mg PO BID PRN PRN Reason: Cough Last Admin: 01/23/25 10:51 Dose: 600 mg Hydroxyzine HCl (Hydroxyzine Hcl 25 Mg Tablet) 25 mg PO Q6H PRN PRN Reason: mild anxiety Last Admin: 01/09/25 19:54 Dose: 25 mg Ibuprofen (Ibuprofen 600 Mg Tablet) 600 mg PO Q6H PRN PRN Reason: BOLANOS Lorazepam (Lorazepam 1 Mg Tablet) 1 mg PO TID PRN PRN Reason: Anxiety Last Admin: 01/22/25 10:41 Dose: 1 mg Magnesium Hydroxide (Milk Of Magnesia 30 Ml Oral.Susp) 30 ml PO DAILY PRN PRN Reason: Constipation Last Admin: 01/09/25 10:48 Dose: 30 ml Mirtazapine (Mirtazapine 15 Mg Tablet) 45 mg PO BEDTIME [facility] Last Admin: 01/25/25 19:59 Dose: 45 mg Multivitamins/Vitamin C (Multivitamin Tablet) 1 tab PO DAILY [facility] Last Admin: 01/26/25 08:27 Dose: 1 tab Nicotine Polacrilex (Nicotine Polacrilex 2 Mg Gum) 4 mg BUCCAL Q2H PRN PRN Reason: Nicotine Cravings Ondansetron HCl (Ondansetron Odt 4 Mg Tab.Rapdis) 4 mg TRANSLINGU Q6H PRN PRN Reason: Nausea and Vomiting Last Admin: 01/04/25 20:02 Dose: 4 mg Thiamine HCl (Thiamine Hcl 100 Mg Tablet) 100 mg PO DAILY [facility] Last Admin: 01/26/25 08:27 Dose: 100 mg Allergies Allergies Allergy/AdvReac Type Severity Reaction Status Date / Time No Known Allergies Allergy Verified 12/30/24 11:36 Assessment & Plan Assessment & Plan (1) Encephalopathy: Qualifiers: Encephalopathy type: unspecified encephalopathy Qualified Code(s): G 93.40 - Encephalopathy, unspecified Status: Acute Code(s): G93.40 - Encephalopathy, unspecified Assessment and Plan: 39 years old woman with change in mental status after ECT, 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 At this time her examination was nonfocal except mild extrapyramidal features, probably from previous exposure to neuroleptics. My recommendation is to treat her with Depakote 500 mg twice a day for 3 months and then repeat EEG. If okay, and there was no other benefit of Depakote, it could be stopped. (2) Major depressive disorder, recurrent severe without psychotic features: Status: Acute Code(s): F33.2 - Major depressive disorder, recurrent severe without psychotic features Plan Patient is a 39-year-old female, [employer] , with history of MDD, VENKAT, who presents for worsening and overwhelming anxiety and hopes to get ECT treatment. Patient reports depression and anxiety since teenage years. It has worsened significantly over the last year to the point where she has become debilitated; a constant stressor is her house in [place] remaining on the market, unsold; subsequently she has been living with her parents. Patient's depression has been significant and she endorses diminished interest, excessive guilt, low energy, poor concentration, having a force herself to shower... She was sent from the [facility] to start TMS and patient had 1 session this Saturday however her anxiety and depression became so overwhelming these past few days to the point where she could not stop crying or pacing the solorzano that she felt unable to wait the full 30 days it takes for T MS to be effective; patient has consistent thoughts that life is not worth living; she says she will not actively take her own life but wishes she would just not wake up. Patient says I feel out of my mind... Patient called providers at the [facility] told her to come to the emergency room. Patient endorses history of trauma but does not disclose; says she has been diagnosed with VENKAT as well as depression. Denies history of any manic episodes or behaviors; no drug or alcohol abuse formulation/clinical reasoning: hx of depression, with limited treatment results, though with limited med trials (effexor, abilify/brexpiprazole- tremors; lexapro, mirtazpine). She is overwhelmed with anxiety and depression -dx of VENKAT? Presents for ECT -will taper off lexapro and mirtazpine as she's been on high doses of both for months with no results. -agrees to start Clomipramine and ECT; discussed lithium but she had some reservations PlAN: cv q15 start Clomipramine 25mg lower Lexapro to 20mg (has been on 40mg for few months) continue MIrtazapine 45mg (will taper) Zyrpexa prn for anxiety/agitation ECT for saturday NPO 01/02: Increase Seroquel to 50 mg HS. Continue current management and treatment plan. ECT Wednesday 01/03: Increase Ativan to 1 mg TID. Hold after 8 PM on nights prior to ECT. 01/04: ECT #1 completed. BOLANOS, memory impairment immediately after. anxious. continue current mgmt. 01/05: calm, cooperative. incr anafranil to 50 mg QHS, decrease lexapro to 15 mg daily. ECT tomorrow, NPO p MN. 01/06: completed ECT #2 without incident. no s/e from medications, reduced s/e from ECT. continue current mgmt. 01/07: remains depressed and anxious. increase clomipramine to 75 mg QHS, decrease lexapro to 10 daily. ECT in the morning. 01/08: completed ECT #3 without incident today. continue current mgmt through saturday, plan to progress in anafranil/lexapro cross-taper on saturday. 01/09 keep same treatment. 01/10 keep same treatment 01/11: less anxious and depressed. focused on improvement, not worries today. ECT #4 completed without incident this morning. increase anafranil to 100 mg tonight and decrease lexapro to 5 mg tomorrow morning. planning to remain in hospital for entire course. 01/13: ECT #5 completed today. mood fine, not depressed, anxiety down. complete ECT #6 on saturday and decide if course should be completed then or further treatments done next week. DC lexapro. 01/14: Appears confused. guarded. flat affect. Patient responding to questions with short answers; reports feeling okay ; staring at T/W during assessment and tilting head side to side; when asked what she was doing, pt smiled and did not respond. Dr. Crawford decreased Zyprexa to 2.5mg PO TID and placed ECT on hold d/t possible ECT delirium. 01/15: remains delirious today, with some unexpected responses such as knowing the month is january yet asserting the season is fall. will continue current mgmt and observe over w/e. ECT for saturday canceld, anafranil dosing decreased to 50 to avoid an anti-Ach component to the delirium. case discussed with pt's mother for 20 minutes. 01/16: continue tx. 01/17: she shows paranoid delusions with some catatonic features, rather than straight delirium. continue current tx. 01/18: more oriented than last saturday, less PMR. continue present medications and supportive care. will observe for improvement. check EEG today. case d/w danielle and gabriel. likely improving ECT-related delirium. 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 started on VPA 500 BID. further ECTs canceled for now. will follow and allow delirium to clear prior to making further Tx plan changes. 01/20: resolving delirium from recent post-ECT seizure activity, hopefully now quashed. continue VPA 500 BID. case discussed with gabriel; likely will not restart ECT and will focus more on medications management. 01/21: MS continues to trend improved. c/o tiredness, heaviness. DC HS zyprexa. next likely change VPA to all at HS and follow level for Sz efficacy. plan to titrate anafranil prior to discharge and decrease remeron as indicated. pt indicates she would like to start discharge planning. case D/W gabriel. 01/22: MS continues to improve,perhaps a bit more affective expression/flexibility today. asking for more ECT, informed pt the issue is being investigated. agreeable to increase anafranil to 75 today, change VPA to IR formulation, and check labs saturday. will plan for repeat EEG on saturday and T/C resuming ECT if EEG WNL. case discussed with gabriel. 01/23: Keeping to self. pacing unit hallway. patient reports feeling tired and anxious ; pt stated, I'm anxious because I keep thinking about finding a job . She reports passive suicidal ideation; pt stated, I wish I could be with God but I don't have a plan at the moment to do anything . per nursing, slept 9 hours last night. continue tx plan 01/24: continue tx plan 01/25: less PMR, no RUFUS, speech spontaneous, affect flexible, cognitively intact. recheck EEG today, if WNL plan to resume ECT on . titrate anafranil to 100 prior to discharge. 01/26: no PMR, speech spontaneous. appearing more anxious, tense. asking about EEG results and ECT tomorrow. as of late afternoon, no read on EEG. will wait for read and plan for ECT resumption saturday if EEG WNL. Reason for continued inpatient stay Substantial Risk for: inability to function Time Spent With Patient Time: Total time managing care of this patient today __25__ minutes.
[2025-01-26 20:00] VITALS: BP 106/66; PULSE 90; RESP 16; TEMP 36.4; O2SAT 98
[2025-01-26] MEDS: clomiPRAMINE HCl 25 MG CAPSULE 75 MG PO (20:02)
[2025-01-26] MEDS: Mirtazapine 15 MG TABLET 45 MG PO (20:03)
[2025-01-26] MEDS: Clotrimazole 1 % Cream 15 GM TUBE 1 APPL TOPICAL (20:06)
[2025-01-27 08:00] VITALS: BP 95/54; PULSE 92; RESP 14; TEMP 36.8; O2SAT 98
[2025-01-27] MEDS: Multivitamin TABLET 1 TAB PO (08:55)
[2025-01-27] MEDS: Thiamine HCL 100 MG TABLET PO (08:55)
[2025-01-27] MEDS: Divalproex Sodium 500 MG TABLET.DR PO ×2 (08:55→20:33)
[2025-01-27] MEDS: Ascorbic Acid 500 MG TABLET 1000 MG PO (08:56)
--- NOTE | 2025-01-27 15:26 | HO.PSYCHPN ---
Subjective Subjective Date of Service: 01/27/25 Reason For Visit: Crisis Interim History: appears more tense, anxious, says so. very much wants to restart ECT GAIL. has capacity to sign POA for her mother to sell her house. amenable to MRI brain prior to restart of ECT on saturday. per staff, anxious affect. increased anxiety in past couple of days. taking meds. pacing. more social days. not social eves. Mental Status Exam Mental Status Exam Narrative: Pt is alert and oriented x4; behavior is cooperative. dressed adequately, adequately groomed; mood improved from admission, affect flexible and hyper-intense; eye contact appropriate; Speech: no RUFUS, spontaneous; no psychomotor retardation present, left hand tremor noted; thought process is organized and goal directed; Thought content: no paranoid delusions noted. no SI/HI expressed. Patient's insight and judgment improving. Diagnostics Vital Signs (24Hr): Vital Signs - 24 hr 01/26/25 20:00 01/27/25 08:00 Temperature 97.6 F 98.3 F Pulse Rate 90 92 Respiratory Rate 16 14 Blood Pressure 106/66 95/54 L Pulse Oximetry 98 98 Oxygen Delivery Method Room Air BMI result Body Mass Index 18.6 Labs 01/24/25 07:30 01/14/25 14:07 Medications Medications Current Medications Acetaminophen (Acetaminophen 325 Mg Tablet) 650 mg PO Q6H PRN PRN Reason: Headache/Pain, Scale 1-10 Last Admin: 01/24/25 16:07 Dose: 650 mg Al Hydroxide/Mg Hydroxide (Magnesium Hydrox/Alum Hydrox 30 Ml Oral.Susp) 30 ml PO Q6H PRN PRN Reason: Heartburn/Nausea Ascorbic Acid (Ascorbic Acid 500 Mg Tablet) 1,000 mg PO DAILY [facility] Last Admin: 01/27/25 08:56 Dose: 1,000 mg Calcium Carbonate (Calcium Carbonate 750 Mg Tab.Chew) 750 mg PO Q6H PRN PRN Reason: Heartburn Last Admin: 01/11/25 17:51 Dose: 750 mg Clomipramine HCl (Clomipramine Hcl 25 Mg Capsule) 75 mg PO BEDTIME [facility] Last Admin: 01/26/25 20:02 Dose: 75 mg Clotrimazole (Clotrimazole 1 % Cream 15 Gm Tube) 1 appl TOPICAL BID [facility]; Protocol Last Admin: 01/27/25 09:39 Dose: Not Given Divalproex Sodium (Divalproex Sodium 500 Mg Tablet.Dr) 500 mg PO BID [facility] Last Admin: 01/27/25 08:55 Dose: 500 mg Guaifenesin (Guaifenesin La 600 Mg Tab.Er.12h) 600 mg PO BID PRN PRN Reason: Cough Last Admin: 01/23/25 10:51 Dose: 600 mg Hydroxyzine HCl (Hydroxyzine Hcl 25 Mg Tablet) 25 mg PO Q6H PRN PRN Reason: mild anxiety Last Admin: 01/09/25 19:54 Dose: 25 mg Ibuprofen (Ibuprofen 600 Mg Tablet) 600 mg PO Q6H PRN PRN Reason: BOLANOS Lorazepam (Lorazepam 1 Mg Tablet) 1 mg PO TID PRN PRN Reason: Anxiety Last Admin: 01/22/25 10:41 Dose: 1 mg Magnesium Hydroxide (Milk Of Magnesia 30 Ml Oral.Susp) 30 ml PO DAILY PRN PRN Reason: Constipation Last Admin: 01/09/25 10:48 Dose: 30 ml Mirtazapine (Mirtazapine 15 Mg Tablet) 45 mg PO BEDTIME [facility] Last Admin: 01/26/25 20:03 Dose: 45 mg Multivitamins/Vitamin C (Multivitamin Tablet) 1 tab PO DAILY [facility] Last Admin: 01/27/25 08:55 Dose: 1 tab Nicotine Polacrilex (Nicotine Polacrilex 2 Mg Gum) 4 mg BUCCAL Q2H PRN PRN Reason: Nicotine Cravings Ondansetron HCl (Ondansetron Odt 4 Mg Tab.Rapdis) 4 mg TRANSLINGU Q6H PRN PRN Reason: Nausea and Vomiting Last Admin: 01/04/25 20:02 Dose: 4 mg Thiamine HCl (Thiamine Hcl 100 Mg Tablet) 100 mg PO DAILY [facility] Last Admin: 01/27/25 08:55 Dose: 100 mg Allergies Allergies Allergy/AdvReac Type Severity Reaction Status Date / Time No Known Allergies Allergy Verified 12/30/24 11:36 Assessment & Plan Assessment & Plan (1) Encephalopathy: Qualifiers: Encephalopathy type: unspecified encephalopathy Qualified Code(s): G93.40 - Encephalopathy, unspecified Status: Acute Code(s): G93.40 - Encephalopathy, unspecified Assessment and Plan: 39 years old woman with change in mental status after ECT, 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 At this time her examination was nonfocal except mild extrapyramidal features, probably from previous exposure to neuroleptics. My recommendation is to treat her with Depakote 500 mg twice a day for 3 months and then repeat EEG. If okay, and there was no other benefit of Depakote, it could be stopped. (2) Major depressive disorder, recurrent severe without psychotic features: Status: Acute Code(s): F33.2 - Major depressive disorder, recurrent severe without psychotic features Plan Patient is a 39-year-old female, [employer] , with history of MDD, VENKAT, who presents for worsening and overwhelming anxiety and hopes to get ECT treatment. Patient reports depression and anxiety since teenage years. It has worsened significantly over the last year to the point where she has become debilitated; a constant stressor is her house in [place] remaining on the market, unsold; subsequently she has been living with her parents. Patient's depression has been significant and she endorses diminished interest, excessive guilt, low energy, poor concentration, having a force herself to shower... She was sent [place] the [facility] to start [facility] and patient had 1 session this Saturday however her anxiety and depression became so overwhelming these past few days to the point where she could not stop crying or pacing the solorzano that she felt unable to wait the full 30 days it takes for T MS to be effective; patient has consistent thoughts that life is not worth living; she says she will not actively take her own life but wishes she would just not wake up. Patient says I feel out of my mind... Patient called providers [facility] the [facility] told her to come to the emergency room. Patient endorses history of trauma but does not disclose; says she has been diagnosed with VENKAT as well as depression. Denies history of any manic episodes or behaviors; no drug or alcohol abuse formulation/clinical reasoning: hx of depression, with limited treatment results, though with limited med trials (effexor, abilify/brexpiprazole- tremors; lexapro, mirtazpine). She is overwhelmed with anxiety and depression -dx of VENKAT? Presents for ECT -will taper off lexapro and mirtazpine as she's been on high doses of both for months with no results. -agrees to start Clomipramine and ECT; discussed lithium but she had some reservations PlAN: cv q15 start Clomipramine 25mg lower Lexapro to 20mg (has been on 40mg for few months) continue MIrtazapine 45mg (will taper) Zyrpexa prn for anxiety/agitation ECT for saturday NPO 01/02: Increase Seroquel to 50 mg HS. Continue current management and treatment plan. ECT Wednesday 01/03: Increase Ativan to 1 mg TID. Hold after 8 PM on nights prior to ECT. 01/04: ECT #1 completed. BOLANOS, memory impairment immediately after. anxious. continue current mgmt. 01/05: calm, cooperative. incr anafranil to 50 mg QHS, decrease lexapro to 15 mg daily. ECT tomorrow, NPO p MN. 01/06: completed ECT #2 without incident. no s/e from medications, reduced s/e from ECT. continue current mgmt. 01/07: remains depressed and anxious. increase clomipramine to 75 mg QHS, decrease lexapro to 10 daily. ECT in the morning. 01/08: completed ECT #3 without incident today. continue current mgmt through saturday, plan to progress in anafranil/lexapro cross-taper on saturday. 01/09 keep same treatment. 01/10 keep same treatment 01/11: less anxious and depressed. focused on improvement, not worries today. ECT #4 completed without incident this morning. increase anafranil to 100 mg tonight and decrease lexapro to 5 mg tomorrow morning. planning to remain in hospital for entire course. 01/13: ECT #5 completed today. mood fine, not depressed, anxiety down. complete ECT #6 on saturday and decide if course should be completed then or further treatments done next week. DC lexapro. 01/14: Appears confused. guarded. flat affect. Patient responding to questions with short answers; reports feeling okay ; staring at T/W during assessment and tilting head side to side; when asked what she was doing, pt smiled and did not respond. Dr. Crawford decreased Zyprexa to 2.5mg PO TID and placed ECT on hold d/t possible ECT delirium. 01/15: remains delirious today, with some unexpected responses such as knowing the month is january yet asserting the season is fall. will continue current mgmt and observe over w/e. ECT for saturday canceld, anafranil dosing decreased to 50 to avoid an anti-Ach component to the delirium. case discussed with pt's mother for 20 minutes. 01/16: continue tx. 01/17: she shows paranoid delusions with some catatonic features, rather than straight delirium. continue current tx. 01/18: more oriented than last saturday, less PMR. continue present medications and supportive care. will observe for improvement. check EEG today. case d/w danielle and gabriel. likely improving ECT-related delirium. 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 started on VPA 500 BID. further ECTs canceled for now. will follow and allow delirium to clear prior to making further Tx plan changes. 01/20: resolving delirium from recent post-ECT seizure activity, hopefully now quashed. continue VPA 500 BID. case discussed with gabriel; likely will not restart ECT and will focus more on medications management. 01/21: MS continues to trend improved. c/o tiredness, heaviness. DC HS zyprexa. next likely change VPA to all at HS and follow level for Sz efficacy. plan to titrate anafranil prior to discharge and decrease remeron as indicated. pt indicates she would like to start discharge planning. case D/W gabriel. 01/22: MS continues to improve,perhaps a bit more affective expression/flexibility today. asking for more ECT, MD informed pt the issue is being investigated. agreeable to increase anafranil to 75 today, change VPA to IR formulation, and check labs saturday. will plan for repeat EEG on saturday and T/C resuming ECT if EEG WNL. case discussed with gabriel. 01/23: Keeping to self. pacing unit hallway. patient reports feeling tired and anxious ; pt stated, I'm anxious because I keep thinking about finding a job . She reports passive suicidal ideation; pt stated, I wish I could be with God but I don't have a plan at the moment to do anything . per nursing, slept 9 hours last night. continue tx plan 01/24: continue tx plan 01/25: less PMR, no RUFUS, speech spontaneous, affect flexible, cognitively intact. recheck EEG today, if WNL plan to resume ECT on . titrate anafranil to 100 prior to discharge. 01/26: no PMR, speech spontaneous. appearing more anxious, tense. asking about EEG results and ECT tomorrow. as of late , no read on EEG. will wait for read and plan for ECT resumption saturday if EEG WNL. 01/27: EEG remains abnormal, yet improved from prior. per ray with Dr. Crawford, may resume ECT handling VPA as we typically do. per Nafisa, will check MRI brain prior to resuming ECT as well. continue current mgmt otherwise. case d/w mother, Ty Cunningham at length. Reason for continued inpatient stay Substantial Risk for: harm to self, inability to function and rapid decompensation Time Spent With Patient Time: Total time managing care of this patient today __65__ minutes.
[2025-01-27] MEDS: hydrOXYzine HCL 25 MG TABLET PO (18:30)
[2025-01-27] MEDS: clomiPRAMINE HCl 25 MG CAPSULE 75 MG PO (20:33)
[2025-01-27] MEDS: Mirtazapine 15 MG TABLET 45 MG PO (20:33)
[2025-01-27] MEDS: Clotrimazole 1 % Cream 15 GM TUBE 1 APPL TOPICAL (20:39)
[2025-01-27 21:10] VITALS: RESP 16
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
[2025-01-28 07:00] VITALS: BMI 19.2
[2025-01-28 07:35] VITALS: BP 93/52; PULSE 97; RESP 14; TEMP 36.5; O2SAT 98
[2025-01-28] MEDS: Divalproex Sodium 500 MG TABLET.DR PO ×2 (08:57→20:14)
[2025-01-28] MEDS: Ascorbic Acid 500 MG TABLET 1000 MG PO (08:57)
[2025-01-28] MEDS: Multivitamin TABLET 1 TAB PO (08:57)
[2025-01-28] MEDS: Thiamine HCL 100 MG TABLET PO (08:57)
[2025-01-28 08:58] VITALS: BP 102/63
--- NOTE | 2025-01-28 15:51 | P.PNPSI_ITS ---
Subjective Subjective Date of Service: 01/28/25 Reason For Visit: Crisis Interim History: radiographic information from last night's CT discussed with pt. pt reports she was unaware she had any nails in her brain. informs MD MEDRANO is not to tell her mother about this development, concerned her mother will freak out. she states she will discuss with mother; asks MD speak with her mother and answer mother's other questions re treatments moving forward. pt informed ECT is on hold and plan will be made to transfer to facility that has neurosurgery for continued eval and Tx. Mental Status Exam Mental Status Exam Narrative: Pt is alert and oriented x4; behavior is cooperative. dressed adequately, adequately groomed; depression improved from admission but anxiety backsliding, affect constricted and hyper-intense; eye contact appropriate; Speech: no RUFUS, spontaneous; no psychomotor retardation present; thought process is organized and goal directed; Thought content: no paranoid delusions noted. no SI/HI expressed. Patient's insight and judgment improving. Diagnostics Vital Signs (24Hr): Vital Signs - 24 hr 01/27/25 21:10 01/28/25 07:35 01/28/25 08:58 Temperature 97.7 F Pulse Rate 97 Respiratory Rate 16 14 Blood Pressure 93/52 L 102/63 Pulse Oximetry 98 Oxygen Delivery Method Room Air BMI result Body Mass Index 19.2 Labs 01/24/25 07:30 01/14/25 14:07 Medications Medications Current Medications Acetaminophen (Acetaminophen 325 Mg Tablet) 650 mg PO Q6H PRN PRN Reason: Headache/Pain, Scale 1-10 Last Admin: 01/24/25 16:07 Dose: 650 mg Al Hydroxide/Mg Hydroxide (Magnesium Hydrox/Alum Hydrox 30 Ml Oral.Susp) 30 ml PO Q6H PRN PRN Reason: Heartburn/Nausea Ascorbic Acid (Ascorbic Acid 500 Mg Tablet) 1,000 mg PO DAILY BREA Last Admin: 01/28/25 08:57 Dose: 1,000 mg Calcium Carbonate (Calcium Carbonate 750 Mg Tab.Chew) 750 mg PO Q6H PRN PRN Reason: Heartburn Last Admin: 01/11/25 17:51 Dose: 750 mg Clomipramine HCl (Clomipramine Hcl 25 Mg Capsule) 75 mg PO BEDTIME BREA Last Admin: 01/27/25 20:33 Dose: 75 mg Clotrimazole (Clotrimazole 1 % Cream 15 Gm Tube) 1 appl TOPICAL BID [facility]; Protocol Last Admin: 01/28/25 08:58 Dose: Not Given Divalproex Sodium (Divalproex Sodium 500 Mg Tablet.Dr) 500 mg PO BID [facility] Last Admin: 01/28/25 08:57 Dose: 500 mg Guaifenesin (Guaifenesin La 600 Mg Tab.Er.12h) 600 mg PO BID PRN PRN Reason: Cough Last Admin: 01/23/25 10:51 Dose: 600 mg Hydroxyzine HCl (Hydroxyzine Hcl 25 Mg Tablet) 25 mg PO Q6H PRN PRN Reason: mild anxiety Last Admin: 01/27/25 18:30 Dose: 25 mg Ibuprofen (Ibuprofen 600 Mg Tablet) 600 mg PO Q6H PRN PRN Reason: BOLANOS Lorazepam (Lorazepam 1 Mg Tablet) 1 mg PO TID PRN PRN Reason: Anxiety Last Admin: 01/22/25 10:41 Dose: 1 mg Magnesium Hydroxide (Milk Of Magnesia 30 Ml Oral.Susp) 30 ml PO DAILY PRN PRN Reason: Constipation Last Admin: 01/09/25 10:48 Dose: 30 ml Mirtazapine (Mirtazapine 15 Mg Tablet) 45 mg PO BEDTIME [facility] Last Admin: 01/27/25 20:33 Dose: 45 mg Multivitamins/Vitamin C (Multivitamin Tablet) 1 tab PO DAILY [facility] Last Admin: 01/28/25 08:57 Dose: 1 tab Nicotine Polacrilex (Nicotine Polacrilex 2 Mg Gum) 4 mg BUCCAL Q2H PRN PRN Reason: Nicotine Cravings Ondansetron HCl (Ondansetron Odt 4 Mg Tab.Rapdis) 4 mg TRANSLINGU Q6H PRN PRN Reason: Nausea and Vomiting Last Admin: 01/04/25 20:02 Dose: 4 mg Thiamine HCl (Thiamine Hcl 100 Mg Tablet) 100 mg PO DAILY [facility] Last Admin: 01/28/25 08:57 Dose: 100 mg Allergies Allergies Allergy/AdvReac Type Severity Reaction Status Date / Time No Known Allergies Allergy Verified 12/30/24 11:36 Assessment & Plan Assessment & Plan (1) Encephalopathy: Qualifiers: Encephalopathy type: unspecified encephalopathy Qualified Code(s): G 93.40 - Encephalopathy, unspecified Status: Acute Code(s): G93.40 - Encephalopathy, unspecified Assessment and Plan: 39 years old woman with change in mental status after ECT, 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 At this time her examination was nonfocal except mild extrapyramidal features, probably from previous exposure to neuroleptics. My recommendation is to treat her with Depakote 500 mg twice a day for 3 months and then repeat EEG. If okay, and there was no other benefit of Depakote, it could be stopped. 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 Patient reports depression and anxiety since teenage years. It has worsened significantly over the last year to the point where she has become debilitated; a constant stressor is her house in [place] remaining on the market, unsold; subsequently she has been living with her parents. Patient's depression has been significant and she endorses diminished interest, excessive guilt, low energy, poor concentration, having a force herself to shower... She was sent from the [facility] to start TMS and patient had 1 session this Saturday however her anxiety and depression became so overwhelming these past few days to the point where she could not stop crying or pacing the solorzano that she felt unable to wait the full 30 days it takes for T MS to be effective; patient has consistent thoughts that life is not worth living; she says she will not actively take her own life but wishes she would just not wake up. Patient says I feel out of my mind... Patient called providers at the [facility] told her to come to the emergency room. Patient endorses history of trauma but does not disclose; says she has been diagnosed with VENKAT as well as depression. Denies history of any manic episodes or behaviors; no drug or alcohol abuse formulation/clinical reasoning: hx of depression, with limited treatment results, though with limited med trials (effexor, abilify/brexpiprazole- tremors; lexapro, mirtazpine). She is overwhelmed with anxiety and depression -dx of VENKAT? Presents for ECT -will taper off lexapro and mirtazpine as she's been on high doses of both for months with no results. -agrees to start Clomipramine and ECT; discussed lithium but she had some reservations PlAN: cv q15 start Clomipramine 25mg lower Lexapro to 20mg (has been on 40mg for few months) continue MIrtazapine 45mg (will taper) Zyrpexa prn for anxiety/agitation ECT for saturday NPO 01/02: Increase Seroquel to 50 mg HS. Continue current management and treatment plan. ECT Wednesday 01/03: Increase Ativan to 1 mg TID. Hold after 8 PM on nights prior to ECT. 01/04: ECT #1 completed. BOLANOS, memory impairment immediately after. anxious. continue current mgmt. 01/05: calm, cooperative. incr anafranil to 50 mg QHS, decrease lexapro to 15 mg daily. ECT tomorrow, NPO p MN. 01/06: completed ECT #2 without incident. no s/e from medications, reduced s/e from ECT. continue current mgmt. 01/07: remains depressed and anxious. increase clomipramine to 75 mg QHS, decrease lexapro to 10 daily. ECT in the morning. 01/08: completed ECT #3 without incident today. continue current mgmt through saturday, plan to progress in anafranil/lexapro cross-taper on saturday. 01/09 keep same treatment. 01/10 keep same treatment 01/11: less anxious and depressed. focused on improvement, not worries today. ECT #4 completed without incident this morning. increase anafranil to 100 mg tonight and decrease lexapro to 5 mg tomorrow morning. planning to remain in hospital for entire course. 01/13: ECT #5 completed today. mood fine, not depressed, anxiety down. complete ECT #6 on saturday and decide if course should be completed then or further treatments done next week. DC lexapro. 01/14: Appears confused. guarded. flat affect. Patient responding to questions with short answers; reports feeling okay ; staring at T/W during assessment and tilting head side to side; when asked what she was doing, pt smiled and did not respond. Dr. Crawford decreased Zyprexa to 2.5mg PO TID and placed ECT on hold d/t possible ECT delirium. 01/15: remains delirious today, with some unexpected responses such as knowing the month is january yet asserting the season is fall. will continue current mgmt and observe over w/e. ECT for saturday canceld, anafranil dosing decreased to 50 to avoid an anti-Ach component to the delirium. case discussed with pt's mother for 20 minutes. 01/16: continue tx. 01/17: she shows paranoid delusions with some catatonic features, rather than straight delirium. continue current tx. 01/18: more oriented than last saturday, less PMR. continue present medications and supportive care. will observe for improvement. check EEG today. case d/w sushma. likely improving ECT-related delirium. 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 started on VPA 500 BID. further ECTs canceled for now. will follow and allow delirium to clear prior to making further Tx plan changes. 01/20: resolving delirium from recent post-ECT seizure activity, hopefully now quashed. continue VPA 500 BID. case discussed with gabriel; likely will not restart ECT and will focus more on medications management. 01/21: MS continues to trend improved. c/o tiredness, heaviness. DC HS zyprexa. next likely change VPA to all at HS and follow level for Sz efficacy. plan to titrate anafranil prior to discharge and decrease remeron as indicated. pt indicates she would like to start discharge planning. case D/W gabriel. 01/22: MS continues to improve,perhaps a bit more affective expression/flexibility today. asking for more ECT, MD informed pt the issue is being investigated. agreeable to increase anafranil to 75 today, change VPA to IR formulation, and check labs saturday morning. will plan for repeat EEG on saturday and T/C resuming ECT if EEG WNL. case discussed with gabriel. 01/23: Keeping to self. pacing unit hallway. patient reports feeling tired and anxious ; pt stated, I'm anxious because I keep thinking about finding a job . She reports passive suicidal ideation; pt stated, I wish I could be with God but I don't have a plan at the moment to do anything . per nursing, slept 9 hours last night. continue tx plan 01/24: continue tx plan 01/25: less PMR, no RUFUS, speech spontaneous, affect flexible, cognitively intact. recheck EEG today, if WNL plan to resume ECT on . titrate anafranil to 100 prior to discharge. 01/26: no PMR, speech spontaneous. appearing more anxious, tense. asking about EEG results and ECT tomorrow. as of late afternoon, no read on EEG. will wait for read and plan for ECT resumption saturday if EEG WNL. 01/27: EEG remains abnormal, yet improved from prior. per ray with Dr. Crawford, may resume ECT handling VPA as we typically do. per Nafisa, will check MRI brain prior to resuming ECT as well. continue current mgmt otherwise. case d/w mother, Ty Cunningham at length. 01/28: MRI aborted for unclear reasons, CT head done instead, which showed 4 nails entering right sikhism area and projecting into right frontal lobe and basal ganglia. will need to pursue neurosurgical eval. plan to transfer to tertiary care facility. ECT on hold, continue pharmacotherapy for now. Tx options discussed with mother, case discussed in detail with gabriel. Reason for continued inpatient stay Substantial Risk for: harm to self, inability to function and rapid decompensation Time Spent With Patient Time: Total time managing care of this patient today __65__ minutes.
[2025-01-28] MEDS: hydrOXYzine HCL 25 MG TABLET PO (16:46)
[2025-01-28 19:21] VITALS: BP 110/69; PULSE 94; RESP 16; TEMP 37.1; O2SAT 98
[2025-01-28] MEDS: Mirtazapine 15 MG TABLET 45 MG PO (20:14)
[2025-01-28] MEDS: clomiPRAMINE HCl 25 MG CAPSULE 75 MG PO (20:14)
[2025-01-28] MEDS: Clotrimazole 1 % Cream 15 GM TUBE 1 APPL TOPICAL (20:16)
[2025-01-29 07:42] VITALS: BP 91/52; PULSE 87; RESP 16; TEMP 36.9; O2SAT 99
[2025-01-29] MEDS: Multivitamin TABLET 1 TAB PO (08:44)
[2025-01-29] MEDS: Divalproex Sodium 500 MG TABLET.DR PO ×2 (08:44→20:24)
[2025-01-29] MEDS: Thiamine HCL 100 MG TABLET PO (08:45)
[2025-01-29] MEDS: Ascorbic Acid 500 MG TABLET 1000 MG PO (08:45)
[2025-01-29 08:46] VITALS: BP 115/66
--- NOTE | 2025-01-29 12:39 | HO.PSYCHPN ---
Subjective Subjective Date of Service: 01/29/25 Reason For Visit: Crisis Interim History: discuss seriousness of her suicide attempt, need for neurosurgical eval, [facility], her concerns about her mother finding out. she seems to be afraid it would alter her mother's perception of her in a way that she could not accept. pt asks to have some time to keila over our conversation. MD informed pt and gabriel would meet with her later in the day. per staff, taking meds. wants ECT. slept about 10 hours. later and gabriel met with pt, discussed need for her to tel lher mother about her condition, discuss possibility of continuing ECT with plan for gabriel to review literature over the weekend. Mental Status Exam Mental Status Exam Narrative: Pt is alert and oriented x4; behavior is cooperative. dressed adequately, adequately groomed; depression improved from admission but anxiety backsliding, affect constricted and hyper-intense; eye contact appropriate; Speech: no RUFUS, spontaneous; no psychomotor retardation present; thought process is organized and goal directed; Thought content: no paranoid delusions noted. no SI/HI expressed. Patient's insight and judgment improving. Diagnostics Vital Signs (24Hr): Vital Signs - 24 hr 01/28/25 19:21 01/29/25 07:42 01/29/25 08:46 Temperature 98.7 F 98.5 F Pulse Rate 94 87 Respiratory Rate 16 16 Blood Pressure 110/69 91/52 L 115/66 Pulse Oximetry 98 99 Oxygen Delivery Method Room Air Room Air BMI result Body Mass Index 19.2 Labs 01/24/25 07:30 01/14/25 14:07 Medications Medications Current Medications Acetaminophen (Acetaminophen 325 Mg Tablet) 650 mg PO Q6H PRN PRN Reason: Headache/Pain, Scale 1-10 Last Admin: 01/24/25 16:07 Dose: 650 mg Al Hydroxide/Mg Hydroxide (Magnesium Hydrox/Alum Hydrox 30 Ml Oral.Susp) 30 ml PO Q6H PRN PRN Reason: Heartburn/Nausea Ascorbic Acid (Ascorbic Acid 500 Mg Tablet) 1,000 mg PO DAILY BREA Last Admin: 01/29/25 08:45 Dose: 1,000 mg Calcium Carbonate (Calcium Carbonate 750 Mg Tab.Chew) 750 mg PO Q6H PRN PRN Reason: Heartburn Last Admin: 01/11/25 17:51 Dose: 750 mg Clomipramine HCl (Clomipramine Hcl 25 Mg Capsule) 75 mg PO BEDTIME [facility] Last Admin: 01/28/25 20:14 Dose: 75 mg Clotrimazole (Clotrimazole 1 % Cream 15 Gm Tube) 1 appl TOPICAL BID [facility]; Protocol Last Admin: 01/29/25 08:45 Dose: Not Given Divalproex Sodium (Divalproex Sodium 500 Mg Tablet.Dr) 500 mg PO BID [facility] Last Admin: 01/29/25 08:44 Dose: 500 mg Guaifenesin (Guaifenesin La 600 Mg Tab.Er.12h) 600 mg PO BID PRN PRN Reason: Cough Last Admin: 01/23/25 10:51 Dose: 600 mg Hydroxyzine HCl (Hydroxyzine Hcl 25 Mg Tablet) 25 mg PO Q6H PRN PRN Reason: mild anxiety Last Admin: 01/28/25 16:46 Dose: 25 mg Ibuprofen (Ibuprofen 600 Mg Tablet) 600 mg PO Q6H PRN PRN Reason: BOLANOS Lorazepam (Lorazepam 1 Mg Tablet) 1 mg PO TID PRN PRN Reason: Anxiety Last Admin: 01/22/25 10:41 Dose: 1 mg Magnesium Hydroxide (Milk Of Magnesia 30 Ml Oral.Susp) 30 ml PO DAILY PRN PRN Reason: Constipation Last Admin: 01/09/25 10:48 Dose: 30 ml Mirtazapine (Mirtazapine 15 Mg Tablet) 45 mg PO BEDTIME [facility] Last Admin: 01/28/25 20:14 Dose: 45 mg Multivitamins/Vitamin C (Multivitamin Tablet) 1 tab PO DAILY [facility] Last Admin: 01/29/25 08:44 Dose: 1 tab Nicotine Polacrilex (Nicotine Polacrilex 2 Mg Gum) 4 mg BUCCAL Q2H PRN PRN Reason: Nicotine Cravings Ondansetron HCl (Ondansetron Odt 4 Mg Tab.Rapdis) 4 mg TRANSLINGU Q6H PRN PRN Reason: Nausea and Vomiting Last Admin: 01/04/25 20:02 Dose: 4 mg Thiamine HCl (Thiamine Hcl 100 Mg Tablet) 100 mg PO DAILY [facility] Last Admin: 01/29/25 08:45 Dose: 100 mg Allergies Allergies Allergy/AdvReac Type Severity Reaction Status Date / Time No Known Allergies Allergy Verified 12/30/24 11:36 Assessment & Plan Assessment & Plan (1) Encephalopathy: Qualifiers: Encephalopathy type: unspecified encephalopathy Qualified Code(s): G93.40 - Encephalopathy, unspecified Status: Acute Code(s): G93.40 - Encephalopathy, unspecified Assessment and Plan: 39 years old woman with change in mental status after ECT, 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 At this time her examination was nonfocal except mild extrapyramidal features, probably from previous exposure to neuroleptics. My recommendation is to treat her with Depakote 500 mg twice a day for 3 months and then repeat EEG. If okay, and there was no other benefit of Depakote, it could be stopped. 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 Patient reports depression and anxiety since teenage years. It has worsened significantly over the last year to the point where she has become debilitated; a constant stressor is her house in [place] remaining on the market, unsold; subsequently she has been living with her parents. Patient's depression has been significant and she endorses diminished interest, excessive guilt, low energy, poor concentration, having a force herself to shower... She was sent from the [facility] to start TMS and patient had 1 session this Saturday however her anxiety and depression became so overwhelming these past few days to the point where she could not stop crying or pacing the solorzano that she felt unable to wait the full 30 days it takes for T MS to be effective; patient has consistent thoughts that life is not worth living; she says she will not actively take her own life but wishes she would just not wake up. Patient says I feel out of my mind... [facility]. Patient endorses history of trauma but does not disclose; says she has been diagnosed with VENKAT as well as depression. Denies history of any manic episodes or behaviors; no drug or alcohol abuse formulation/clinical reasoning: hx of depression, with limited treatment results, though with limited med trials (effexor, abilify/brexpiprazole- tremors; lexapro, mirtazpine). She is overwhelmed with anxiety and depression -dx of VENKAT? Presents for ECT -will taper off lexapro and mirtazpine as she's been on high doses of both for months with no results. -agrees to start Clomipramine and ECT; discussed lithium but she had some reservations PlAN: cv q15 start Clomipramine 25mg lower Lexapro to 20mg (has been on 40mg for few months) continue MIrtazapine 45mg (will taper) Zyrpexa prn for anxiety/agitation ECT for saturday NPO 01/02: Increase Seroquel to 50 mg HS. Continue current management and treatment plan. ECT Wednesday 01/03: Increase Ativan to 1 mg TID. Hold after 8 PM on nights prior to ECT. 01/04: ECT #1 completed. BOLANOS, memory impairment immediately after. anxious. continue current mgmt. 01/05: calm, cooperative. incr anafranil to 50 mg QHS, decrease lexapro to 15 mg daily. ECT tomorrow, NPO p MN. 01/06: completed ECT #2 without incident. no s/e from medications, reduced s/e from ECT. continue current mgmt. 01/07: remains depressed and anxious. increase clomipramine to 75 mg QHS, decrease lexapro to 10 daily. ECT in the morning. 01/08: completed ECT #3 without incident today. continue current mgmt through saturday, plan to progress in anafranil/lexapro cross-taper on saturday. 01/09 keep same treatment. 01/10 keep same treatment 01/11: less anxious and depressed. focused on improvement, not worries today. ECT #4 completed without incident this morning. increase anafranil to 100 mg tonight and decrease lexapro to 5 mg tomorrow morning. planning to remain in hospital for entire course. 01/13: ECT #5 completed today. mood fine, not depressed, anxiety down. complete ECT #6 on saturday and decide if course should be completed then or further treatments done next week. DC lexapro. 01/14: Appears confused. guarded. flat affect. Patient responding to questions with short answers; reports feeling okay ; staring at T/W during assessment and tilting head side to side; when asked what she was doing, pt smiled and did not respond. Dr. Crawford decreased Zyprexa to 2.5mg PO TID and placed ECT on hold d/t possible ECT delirium. 01/15: remains delirious today, with some unexpected responses such as knowing the month is january yet asserting the season is fall. will continue current mgmt and observe over w/e. ECT for saturday canceld, anafranil dosing decreased to 50 to avoid an anti-Ach component to the delirium. case discussed with pt's mother for 20 minutes. 01/16: continue tx. 01/17: she shows paranoid delusions with some catatonic features, rather than straight delirium. continue current tx. 01/18: more oriented than last saturday, less PMR. continue present medications and supportive care. will observe for improvement. check EEG today. case d/w sushma. likely improving ECT-related delirium. 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 started on VPA 500 BID. further ECTs canceled for now. will follow and allow delirium to clear prior to making further Tx plan changes. 01/20: resolving delirium from recent post-ECT seizure activity, hopefully now quashed. continue VPA 500 BID. case discussed with gabriel; likely will not restart ECT and will focus more on medications management. 01/21: MS continues to trend improved. c/o tiredness, heaviness. DC HS zyprexa. next likely change VPA to all at HS and follow level for Sz efficacy. plan to titrate anafranil prior to discharge and decrease remeron as indicated. pt indicates she would like to start discharge planning. case D/W gabriel. 3/14: MS continues to improve,perhaps a bit more affective expression/flexibility today. asking for more ECT, MD informed pt the issue is being investigated. agreeable to increase anafranil to 75 today, change VPA to IR formulation, and check labs saturday. will plan for repeat EEG on saturday and T/C resuming ECT if EEG WNL. case discussed with gabriel. 01/23: Keeping to self. pacing unit hallway. patient reports feeling tired and anxious ; pt stated, I'm anxious because I keep thinking about finding a job . She reports passive suicidal ideation; pt stated, I wish I could be with God but I don't have a plan at the moment to do anything . per nursing, slept 9 hours last night. continue tx plan 01/24: continue tx plan 01/25: less PMR, no RUFUS, speech spontaneous, affect flexible, cognitively intact. recheck EEG today, if WNL plan to resume ECT on . titrate anafranil to 100 prior to discharge. 01/26: no PMR, speech spontaneous. appearing more anxious, tense. asking about EEG results and ECT tomorrow. as of late afternoon, no read on EEG. will wait for read and plan for ECT resumption saturday if EEG WNL. 01/27: EEG remains abnormal, yet improved from prior. per ray with Dr. Crawford, may resume ECT handling VPA as we typically do. per Nafisa, will check MRI brain prior to resuming ECT as well. continue current mgmt otherwise. case d/w mother, Ty Cunningham at length. 01/28: MRI aborted for unclear reasons, CT head done instead, which showed 4 nails entering right rastafari area and projecting into right frontal lobe and basal ganglia. will need to pursue neurosurgical eval. plan to transfer to tertiary care facility. ECT on hold, continue pharmacotherapy for now. Tx options discussed with mother, case discussed in detail with gabriel. 01/29: pt reticent for transfer, insistent on ECT. fearful of her mother's finding out about her suicide attempt. MoCA 25/30. per neuro, no neurosurgeon would want to remove the nails as there is only negative impact on pt with no possible benefit to her. gabriel to review literature re ECT on patients with metal FBs in their brains prior to decision to proceed or not. Reason for continued inpatient stay Substantial Risk for: harm to self, inability to function and rapid decompensation Time Spent With Patient Time: Total time managing care of this patient today __65__ minutes.
[2025-01-29] MEDS: hydrOXYzine HCL 25 MG TABLET PO (13:01)
[2025-01-29 20:00] VITALS: BP 98/54; PULSE 89; RESP 14; TEMP 36.9; O2SAT 98
[2025-01-29] MEDS: clomiPRAMINE HCl 25 MG CAPSULE 75 MG PO (20:24)
[2025-01-29] MEDS: Mirtazapine 15 MG TABLET 45 MG PO (20:24)
[2025-01-29] MEDS: Clotrimazole 1 % Cream 15 GM TUBE 1 APPL TOPICAL (20:30)
[2025-01-30 08:00] VITALS: BP 96/60; PULSE 80; TEMP 36.9; O2SAT 98
--- NOTE | 2025-01-30 09:00 | HO.PSYCHPN ---
Subjective Subjective Date of Service: 01/30/25 Reason For Visit: Crisis Interim History: Events of last few days noted. Patient reports feeling OK today. Hopeful ECT will resume. Finds it helpful. Less anxious, ruminative and labile than earlier in course of hospitalization. Remains anxious looking and apprehensive. Review of Systems Review of Systems Depression and anxiety. Mental Status Exam Mental Status Exam Narrative: Pt is alert and oriented x4; behavior is cooperative. dressed adequately, adequately groomed; depression improved from admission but anxiety backsliding, affect constricted and hyper-intense; eye contact appropriate; Speech: no RUFUS, spontaneous; no psychomotor retardation present; thought process is organized and goal directed; Thought content: no paranoid delusions noted. no SI/HI expressed. Patient's insight and judgment improving. Patient Appearance: Appropriate Patient Orientation: Person, Place, Time and Situation Level of Consciousness: Awake and Alert Patient Behavior: Guarded and Confused Mood Description: Blunted Affect Description: Flat Patient Cognition Impaired: Yes Ability to Follow Directions: Good Speech Pattern: Clear Diagnostics Vital Signs (24Hr): Vital Signs - 24 hr 01/29/25 20:00 01/30/25 08:00 Temperature 98.5 F 98.4 F Pulse Rate 89 80 Respiratory Rate 14 Blood Pressure 98/54 L 96/60 Pulse Oximetry 98 98 Oxygen Delivery Method Room Air Room Air BMI result Body Mass Index 19.2 Labs 01/24/25 07:30 01/14/25 14:07 Medications Medications Current Medications Acetaminophen (Acetaminophen 325 Mg Tablet) 650 mg PO Q6H PRN PRN Reason: Headache/Pain, Scale 1-10 Last Admin: 01/24/25 16:07 Dose: 650 mg Al Hydroxide/Mg Hydroxide (Magnesium Hydrox/Alum Hydrox 30 Ml Oral.Susp) 30 ml PO Q6H PRN PRN Reason: Heartburn/Nausea Ascorbic Acid (Ascorbic Acid 500 Mg Tablet) 1,000 mg PO DAILY BREA Last Admin: 01/29/25 08:45 Dose: 1,000 mg Calcium Carbonate (Calcium Carbonate 750 Mg Tab.Chew) 750 mg PO Q6H PRN PRN Reason: Heartburn Last Admin: 01/11/25 17:51 Dose: 750 mg Clomipramine HCl (Clomipramine Hcl 25 Mg Capsule) 75 mg PO BEDTIME BREA Last Admin: 01/29/25 20:24 Dose: 75 mg Clotrimazole (Clotrimazole 1 % Cream 15 Gm Tube) 1 appl TOPICAL BID [facility]; Protocol Last Admin: 01/29/25 20:30 Dose: 1 appl Divalproex Sodium (Divalproex Sodium 500 Mg Tablet.Dr) 500 mg PO BID [facility] Last Admin: 01/29/25 20:24 Dose: 500 mg Guaifenesin (Guaifenesin La 600 Mg Tab.Er.12h) 600 mg PO BID PRN PRN Reason: Cough Last Admin: 01/23/25 10:51 Dose: 600 mg Hydroxyzine HCl (Hydroxyzine Hcl 25 Mg Tablet) 25 mg PO Q6H PRN PRN Reason: mild anxiety Last Admin: 01/29/25 13:01 Dose: 25 mg Ibuprofen (Ibuprofen 600 Mg Tablet) 600 mg PO Q6H PRN PRN Reason: BOLANOS Lorazepam (Lorazepam 1 Mg Tablet) 1 mg PO TID PRN PRN Reason: Anxiety Last Admin: 01/22/25 10:41 Dose: 1 mg Magnesium Hydroxide (Milk Of Magnesia 30 Ml Oral.Susp) 30 ml PO DAILY PRN PRN Reason: Constipation Last Admin: 01/09/25 10:48 Dose: 30 ml Mirtazapine (Mirtazapine 15 Mg Tablet) 45 mg PO BEDTIME [facility] Last Admin: 01/29/25 20:24 Dose: 45 mg Multivitamins/Vitamin C (Multivitamin Tablet) 1 tab PO DAILY [facility] Last Admin: 01/29/25 08:44 Dose: 1 tab Nicotine Polacrilex (Nicotine Polacrilex 2 Mg Gum) 4 mg BUCCAL Q2H PRN PRN Reason: Nicotine Cravings Ondansetron HCl (Ondansetron Odt 4 Mg Tab.Rapdis) 4 mg TRANSLINGU Q6H PRN PRN Reason: Nausea and Vomiting Last Admin: 01/04/25 20:02 Dose: 4 mg Thiamine HCl (Thiamine Hcl 100 Mg Tablet) 100 mg PO DAILY [facility] Last Admin: 01/29/25 08:45 Dose: 100 mg Allergies Allergies Allergy/AdvReac Type Severity Reaction Status Date / Time No Known Allergies Allergy Verified 12/30/24 11:36 Assessment & Plan Assessment & Plan (1) Encephalopathy: Qualifiers: Encephalopathy type: unspecified encephalopathy Qualified Code(s): G93.40 - Encephalopathy, unspecified Status: Acute Code(s): G93.40 - Encephalopathy, unspecified Assessment and Plan: 39 years old woman with change in mental status after ECT, 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 At this time her examination was nonfocal except mild extrapyramidal features, probably from previous exposure to neuroleptics. My recommendation is to treat her with Depakote 500 mg twice a day for 3 months and then repeat EEG. If okay, and there was no other benefit of Depakote, it could be stopped. 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 Patient reports depression and anxiety since teenage years. It has worsened significantly over the last year to the point where she has become debilitated; a constant stressor is her house in [place] remaining on the market, unsold; subsequently she has been living with her parents. Patient's depression has been significant and she endorses diminished interest, excessive guilt, low energy, poor concentration, having a force herself to shower... [facility] to start [facility] and patient had 1 session this Saturday however her anxiety and depression became so overwhelming these past few days to the point where she could not stop crying or pacing the solorzano that she felt unable to wait the full 30 days it takes for T MS to be effective; patient has consistent thoughts that life is not worth living; she says she will not actively take her own life but wishes she would just not wake up. Patient says I feel out of my mind... Patient called providers at the [facility] told her to come to the emergency room. Patient endorses history of trauma but does not disclose; says she has been diagnosed with VENKAT as well as depression. Denies history of any manic episodes or behaviors; no drug or alcohol abuse formulation/clinical reasoning: hx of depression, with limited treatment results, though with limited med trials (effexor, abilify/brexpiprazole- tremors; lexapro, mirtazpine). She is overwhelmed with anxiety and depression -dx of VENKAT? Presents for ECT -will taper off lexapro and mirtazpine as she's been on high doses of both for months with no results. -agrees to start Clomipramine and ECT; discussed lithium but she had some reservations PlAN: cv q15 start Clomipramine 25mg lower Lexapro to 20mg (has been on 40mg for few months) continue MIrtazapine 45mg (will taper) Zyrpexa prn for anxiety/agitation ECT for saturday NPO 01/02: Increase Seroquel to 50 mg HS. Continue current management and treatment plan. ECT Wednesday 01/03: Increase Ativan to 1 mg TID. Hold after 8 PM on nights prior to ECT. 01/04: ECT #1 completed. BOLANOS, memory impairment immediately after. anxious. continue current mgmt. 01/05: calm, cooperative. incr anafranil to 50 mg QHS, decrease lexapro to 15 mg daily. ECT tomorrow, NPO p MN. 01/06: completed ECT #2 without incident. no s/e from medications, reduced s/e from ECT. continue current mgmt. 01/07: remains depressed and anxious. increase clomipramine to 75 mg QHS, decrease lexapro to 10 daily. ECT in the morning. 01/08: completed ECT #3 without incident today. continue current mgmt through saturday, plan to progress in anafranil/lexapro cross-taper on saturday. 01/09 keep same treatment. 01/10 keep same treatment 01/11: less anxious and depressed. focused on improvement, not worries today. ECT #4 completed without incident this morning. increase anafranil to 100 mg tonight and decrease lexapro to 5 mg tomorrow morning. planning to remain in hospital for entire course. 01/13: ECT #5 completed today. mood fine, not depressed, anxiety down. complete ECT #6 on saturday and decide if course should be completed then or further treatments done next week. DC lexapro. 01/14: Appears confused. guarded. flat affect. Patient responding to questions with short answers; reports feeling okay ; staring at T/W during assessment and tilting head side to side; when asked what she was doing, pt smiled and did not respond. Dr. Crawford decreased Zyprexa to 2.5mg PO TID and placed ECT on hold d/t possible ECT delirium. 01/15: remains delirious today, with some unexpected responses such as knowing the month is january yet asserting the season is fall. will continue current mgmt and observe over w/e. ECT for saturday canceld, anafranil dosing decreased to 50 to avoid an anti-Ach component to the delirium. case discussed with pt's mother for 20 minutes. 01/16: continue tx. 01/17: she shows paranoid delusions with some catatonic features, rather than straight delirium. continue current tx. 01/18: more oriented than last saturday, less PMR. continue present medications and supportive care. will observe for improvement. check EEG today. case d/w danielle and gabriel. likely improving ECT-related delirium. 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 started on VPA 500 BID. further ECTs canceled for now. will follow and allow delirium to clear prior to making further Tx plan changes. 01/20: resolving delirium from recent post-ECT seizure activity, hopefully now quashed. continue VPA 500 BID. case discussed with gabriel; likely will not restart ECT and will focus more on medications management. 01/21: MS continues to trend improved. c/o tiredness, heaviness. DC HS zyprexa. next likely change VPA to all at HS and follow level for Sz efficacy. plan to titrate anafranil prior to discharge and decrease remeron as indicated. pt indicates she would like to start discharge planning. case D/W gabriel. 01/22: MS continues to improve,perhaps a bit more affective expression/flexibility today. asking for more ECT, MD informed pt the issue is being investigated. agreeable to increase anafranil to 75 today, change VPA to IR formulation, and check labs kristine morning. will plan for repeat EEG on saturday and T/C resuming ECT if EEG WNL. case discussed with gabriel. 01/23: Keeping to self. pacing unit hallway. patient reports feeling tired and anxious ; pt stated, I'm anxious because I keep thinking about finding a job . She reports passive suicidal ideation; pt stated, I wish I could be with God but I don't have a plan at the moment to do anything . per nursing, slept 9 hours last night. continue tx plan 01/24: continue tx plan 01/25: less PMR, no RUFUS, speech spontaneous, affect flexible, cognitively intact. recheck EEG today, if WNL plan to resume ECT on . titrate anafranil to 100 prior to discharge. 01/26: no PMR, speech spontaneous. appearing more anxious, tense. asking about EEG results and ECT tomorrow. as of late afternoon, no read on EEG. will wait for read and plan for ECT resumption saturday if EEG WNL. 01/27: EEG remains abnormal, yet improved from prior. per ray with Dr. Crawford, may resume ECT handling VPA as we typically do. per Nafisa, will check MRI brain prior to resuming ECT as well. continue current mgmt otherwise. case d/w mother, Ty Cunningham at length. 01/28: MRI aborted for unclear reasons, CT head done instead, which showed 4 nails entering right catholic area and projecting into right frontal lobe and basal ganglia. will need to pursue neurosurgical eval. plan to transfer to tertiary care facility. ECT on hold, continue pharmacotherapy for now. Tx options discussed with mother, case discussed in detail with gabriel. 01/29: pt reticent for transfer, insistent on ECT. fearful of her mother's finding out about her suicide attempt. MoCA 25/30. per neuro, no neurosurgeon would want to remove the nails as there is only negative impact on pt with no possible benefit to her. 01/30: Continue current management and treatment plan. Reason for continued inpatient stay Substantial Risk for: harm to self, inability to function and rapid decompensation Time Spent With Patient Time: Total time managing care of this patient today ____ minutes.
[2025-01-30] MEDS: Divalproex Sodium 500 MG TABLET.DR PO ×2 (09:17→20:17)
[2025-01-30] MEDS: Thiamine HCL 100 MG TABLET PO (09:17)
[2025-01-30] MEDS: Multivitamin TABLET 1 TAB PO (09:17)
[2025-01-30] MEDS: Ascorbic Acid 500 MG TABLET 1000 MG PO (09:17)
[2025-01-30 20:00] VITALS: BP 99/66; PULSE 77; RESP 14; TEMP 37.1; O2SAT 99
[2025-01-30] MEDS: Clotrimazole 1 % Cream 15 GM TUBE 1 APPL TOPICAL (20:16)
[2025-01-30] MEDS: clomiPRAMINE HCl 25 MG CAPSULE 75 MG PO (20:16)
[2025-01-30] MEDS: Mirtazapine 15 MG TABLET 45 MG PO (20:17)
[2025-01-31 08:50] VITALS: BP 105/57; PULSE 86; RESP 14; TEMP 36.9; O2SAT 98
[2025-01-31] MEDS: Multivitamin TABLET 1 TAB PO (09:03)
[2025-01-31] MEDS: Divalproex Sodium 500 MG TABLET.DR PO ×2 (09:03→20:14)
[2025-01-31] MEDS: Ascorbic Acid 500 MG TABLET 1000 MG PO (09:03)
[2025-01-31] MEDS: Thiamine HCL 100 MG TABLET PO (09:03)
--- NOTE | 2025-01-31 12:11 | HO.PSYCHPN ---
Subjective Subjective Date of Service: 01/31/25 Reason For Visit: Crisis Interim History: Visible on unit. Remains interested in ECT and hoping Dr. Cunningham decides to continue. It has been helpful for her mood and anxiety. Less anxious overall. Review of Systems Review of Systems Depression and anxiety. Mental Status Exam Mental Status Exam Narrative: Pt is alert and oriented x4; behavior is cooperative. dressed adequately, adequately groomed; depression improved from admission but anxiety backsliding, affect constricted and hyper-intense; eye contact appropriate; Speech: no RUFUS, spontaneous; no psychomotor retardation present; thought process is organized and goal directed; Thought content: no paranoid delusions noted. no SI/HI expressed. Patient's insight and judgment improving. Patient Appearance: Appropriate Patient Orientation: Person, Place, Time and Situation Level of Consciousness: Awake and Alert Patient Behavior: Guarded and Confused Mood Description: Blunted Affect Description: Flat Patient Cognition Impaired: Yes Ability to Follow Directions: Good Speech Pattern: Clear Diagnostics Vital Signs (24Hr): Vital Signs - 24 hr 01/30/25 20:00 01/31/25 08:50 Temperature 98.8 F 98.5 F Pulse Rate 77 86 Respiratory Rate 14 14 Blood Pressure 99/66 105/57 L Pulse Oximetry 99 98 Oxygen Delivery Method Room Air Room Air BMI result Body Mass Index 19.2 Labs 01/24/25 07:30 01/14/25 14:07 Medications Medications Current Medications Acetaminophen (Acetaminophen 325 Mg Tablet) 650 mg PO Q6H PRN PRN Reason: Headache/Pain, Scale 1-10 Last Admin: 01/24/25 16:07 Dose: 650 mg Al Hydroxide/Mg Hydroxide (Magnesium Hydrox/Alum Hydrox 30 Ml Oral.Susp) 30 ml PO Q6H PRN PRN Reason: Heartburn/Nausea Ascorbic Acid (Ascorbic Acid 500 Mg Tablet) 1,000 mg PO DAILY [facility] Last Admin: 01/31/25 09:03 Dose: 1,000 mg Calcium Carbonate (Calcium Carbonate 750 Mg Tab.Chew) 750 mg PO Q6H PRN PRN Reason: Heartburn Last Admin: 01/11/25 17:51 Dose: 750 mg Clomipramine HCl (Clomipramine Hcl 25 Mg Capsule) 75 mg PO BEDTIME BREA Last Admin: 01/30/25 20:16 Dose: 75 mg Clotrimazole (Clotrimazole 1 % Cream 15 Gm Tube) 1 appl TOPICAL BID [facility]; Protocol Last Admin: 01/31/25 09:05 Dose: Not Given Divalproex Sodium (Divalproex Sodium 500 Mg Tablet.Dr) 500 mg PO BID [facility] Last Admin: 01/31/25 09:03 Dose: 500 mg Guaifenesin (Guaifenesin La 600 Mg Tab.Er.12h) 600 mg PO BID PRN PRN Reason: Cough Last Admin: 01/23/25 10:51 Dose: 600 mg Hydroxyzine HCl (Hydroxyzine Hcl 25 Mg Tablet) 25 mg PO Q6H PRN PRN Reason: mild anxiety Last Admin: 01/29/25 13:01 Dose: 25 mg Ibuprofen (Ibuprofen 600 Mg Tablet) 600 mg PO Q6H PRN PRN Reason: BOLANOS Lorazepam (Lorazepam 1 Mg Tablet) 1 mg PO TID PRN PRN Reason: Anxiety Last Admin: 01/22/25 10:41 Dose: 1 mg Magnesium Hydroxide (Milk Of Magnesia 30 Ml Oral.Susp) 30 ml PO DAILY PRN PRN Reason: Constipation Last Admin: 01/09/25 10:48 Dose: 30 ml Mirtazapine (Mirtazapine 15 Mg Tablet) 45 mg PO BEDTIME [facility] Last Admin: 01/30/25 20:17 Dose: 45 mg Multivitamins/Vitamin C (Multivitamin Tablet) 1 tab PO DAILY [facility] Last Admin: 01/31/25 09:03 Dose: 1 tab Nicotine Polacrilex (Nicotine Polacrilex 2 Mg Gum) 4 mg BUCCAL Q2H PRN PRN Reason: Nicotine Cravings Ondansetron HCl (Ondansetron Odt 4 Mg Tab.Rapdis) 4 mg TRANSLINGU Q6H PRN PRN Reason: Nausea and Vomiting Last Admin: 01/04/25 20:02 Dose: 4 mg Thiamine HCl (Thiamine Hcl 100 Mg Tablet) 100 mg PO DAILY [facility] Last Admin: 01/31/25 09:03 Dose: 100 mg Allergies Allergies Allergy/AdvReac Type Severity Reaction Status Date / Time No Known Allergies Allergy Verified 12/30/24 11:36 Assessment & Plan Assessment & Plan (1) Encephalopathy: Qualifiers: Encephalopathy type: unspecified encephalopathy Qualified Code(s): G93.40 - Encephalopathy, unspecified Status: Acute Code(s): G93.40 - Encephalopathy, unspecified Assessment and Plan: 39 years old woman with change in mental status after ECT, 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 At this time her examination was nonfocal except mild extrapyramidal features, probably from previous exposure to neuroleptics. My recommendation is to treat her with Depakote 500 mg twice a day for 3 months and then repeat EEG. If okay, and there was no other benefit of Depakote, it could be stopped. 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 Patient reports depression and anxiety since teenage years. It has worsened significantly over the last year to the point where she has become debilitated; a constant stressor is her house in [place] remaining on the market, unsold; subsequently she has been living with her parents. Patient's depression has been significant and she endorses diminished interest, excessive guilt, low energy, poor concentration, having a force herself to shower... [facility] and patient had 1 session this Saturday however her anxiety and depression became so overwhelming these past few days to the point where she could not stop crying or pacing the solorzano that she felt unable to wait the full 30 days it takes for T MS to be effective; patient has consistent thoughts that life is not worth living; she says she will not actively take her own life but wishes she would just not wake up. Patient says I feel out of my mind... Patient called providers at the [facility] told her to come to the emergency room. Patient endorses history of trauma but does not disclose; says she has been diagnosed with VENKAT as well as depression. Denies history of any manic episodes or behaviors; no drug or alcohol abuse formulation/clinical reasoning: hx of depression, with limited treatment results, though with limited med trials (effexor, abilify/brexpiprazole- tremors; lexapro, mirtazpine). She is overwhelmed with anxiety and depression -dx of VENKAT? Presents for ECT -will taper off lexapro and mirtazpine as she's been on high doses of both for months with no results. -agrees to start Clomipramine and ECT; discussed lithium but she had some reservations PlAN: cv q15 start Clomipramine 25mg lower Lexapro to 20mg (has been on 40mg for few months) continue MIrtazapine 45mg (will taper) Zyrpexa prn for anxiety/agitation ECT for saturday NPO 01/02: Increase Seroquel to 50 mg HS. Continue current management and treatment plan. ECT Wednesday 01/03: Increase Ativan to 1 mg TID. Hold after 8 PM on nights prior to ECT. 01/04: ECT #1 completed. BOLANOS, memory impairment immediately after. anxious. continue current mgmt. 01/05: calm, cooperative. incr anafranil to 50 mg QHS, decrease lexapro to 15 mg daily. ECT tomorrow, NPO p MN. 01/06: completed ECT #2 without incident. no s/e from medications, reduced s/e from ECT. continue current mgmt. 01/07: remains depressed and anxious. increase clomipramine to 75 mg QHS, decrease lexapro to 10 daily. ECT in the morning. 01/08: completed ECT #3 without incident today. continue current mgmt through saturday, plan to progress in anafranil/lexapro cross-taper on saturday. 01/09 keep same treatment. 01/10 keep same treatment 01/11: less anxious and depressed. focused on improvement, not worries today. ECT #4 completed without incident this morning. increase anafranil to 100 mg tonight and decrease lexapro to 5 mg tomorrow morning. planning to remain in hospital for entire course. 01/13: ECT #5 completed today. mood fine, not depressed, anxiety down. complete ECT #6 on saturday and decide if course should be completed then or further treatments done next week. DC lexapro. 01/14: Appears confused. guarded. flat affect. Patient responding to questions with short answers; reports feeling okay ; staring at T/W during assessment and tilting head side to side; when asked what she was doing, pt smiled and did not respond. Dr. Crawford decreased Zyprexa to 2.5mg PO TID and placed ECT on hold d/t possible ECT delirium. 01/15: remains delirious today, with some unexpected responses such as knowing the month is january yet asserting the season is fall. will continue current mgmt and observe over w/e. ECT for saturday canceld, anafranil dosing decreased to 50 to avoid an anti-Ach component to the delirium. case discussed with pt's mother for 20 minutes. 01/16: continue tx. 01/17: she shows paranoid delusions with some catatonic features, rather than straight delirium. continue current tx. 01/18: more oriented than last saturday, less PMR. continue present medications and supportive care. will observe for improvement. check EEG today. case d/w sushma. likely improving ECT-related delirium. 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 started on VPA 500 BID. further ECTs canceled for now. will follow and allow delirium to clear prior to making further Tx plan changes. 01/20: resolving delirium from recent post-ECT seizure activity, hopefully now quashed. continue VPA 500 BID. case discussed with gabriel; likely will not restart ECT and will focus more on medications management. 01/21: MS continues to trend improved. c/o tiredness, heaviness. DC HS zyprexa. next likely change VPA to all at HS and follow level for Sz efficacy. plan to titrate anafranil prior to discharge and decrease remeron as indicated. pt indicates she would like to start discharge planning. case D/W gabriel. 01/22: MS continues to improve,perhaps a bit more affective expression/flexibility today. asking for more ECT, MD informed pt the issue is being investigated. agreeable to increase anafranil to 75 today, change VPA to IR formulation, and check labs saturday. will plan for repeat EEG on saturday and T/C resuming ECT weds if EEG WNL. case discussed with gabriel. 01/23: Keeping to self. pacing unit hallway. patient reports feeling tired and anxious ; pt stated, I'm anxious because I keep thinking about finding a job . She reports passive suicidal ideation; pt stated, I wish I could be with God but I don't have a plan at the moment to do anything . per nursing, slept 9 hours last night. continue tx plan 01/24: continue tx plan 01/25: less PMR, no RUFUS, speech spontaneous, affect flexible, cognitively intact. recheck EEG today, if WNL plan to resume ECT on . titrate anafranil to 100 prior to discharge. 01/26: no PMR, speech spontaneous. appearing more anxious, tense. asking about EEG results and ECT tomorrow. as of late , no read on EEG. will wait for read and plan for ECT resumption saturday if EEG WNL. 01/27: EEG remains abnormal, yet improved from prior. per ray with Dr. Crawford, may resume ECT handling VPA as we typically do. per Nafisa, will check MRI brain prior to resuming ECT as well. continue current mgmt otherwise. case d/w mother, Ty Cunningham at length. 01/28: MRI aborted for unclear reasons, CT head done instead, which showed 4 nails entering right moravian area and projecting into right frontal lobe and basal ganglia. will need to pursue neurosurgical eval. plan to transfer to tertiary care facility. ECT on hold, continue pharmacotherapy for now. Tx options discussed with mother, case discussed in detail with gabriel. 01/29: pt reticent for transfer, insistent on ECT. fearful of her mother's finding out about her suicide attempt. MoCA 25/30. per neuro, no neurosurgeon would want to remove the nails as there is only negative impact on pt with no possible benefit to her. 01/30: Continue current management and treatment plan. 01/31: continue current management and treatment plan. Reason for continued inpatient stay Substantial Risk for: harm to self, inability to function and rapid decompensation Time Spent With Patient Time: Total time managing care of this patient today ____ minutes.
[2025-01-31] MEDS: hydrOXYzine HCL 25 MG TABLET PO (16:20)
[2025-01-31 20:00] VITALS: BP 98/54; PULSE 82; RESP 16; TEMP 37.1; O2SAT 99
[2025-01-31] MEDS: Mirtazapine 15 MG TABLET 45 MG PO (20:13)
[2025-01-31] MEDS: clomiPRAMINE HCl 25 MG CAPSULE 75 MG PO (20:13)
[2025-02-01 07:48] VITALS: BP 112/70; PULSE 78; RESP 14; TEMP 36.8; O2SAT 98
[2025-02-01] MEDS: Divalproex Sodium 500 MG TABLET.DR PO ×2 (08:54→20:13)
[2025-02-01] MEDS: Ascorbic Acid 500 MG TABLET 1000 MG PO (08:54)
[2025-02-01] MEDS: Thiamine HCL 100 MG TABLET PO (08:54)
[2025-02-01] MEDS: Multivitamin TABLET 1 TAB PO (10:49)
--- NOTE | 2025-02-01 15:21 | P.PNPSI_ITS ---
Subjective Subjective Date of Service: 02/01/25 Reason For Visit: Crisis Interim History: appears less anxious and depressed than prior. asking for ECT. reports anxiety very low, depression low. disappointed MD does not have definitive word for her re ECT. per staff, no SI/HI. taking meds. slept well. a little anxious. dep 2 anx 4 eves. Mental Status Exam Mental Status Exam Narrative: Pt is alert and oriented x4; behavior is cooperative. dressed adequately, adequately groomed; depression and anxiety improved from admission, affect full range and normo-intense; eye contact appropriate; Speech: no RUFUS, spontaneous; no psychomotor retardation present; thought process is organized and goal directed; Thought content: no paranoid delusions noted. no SI/HI expressed. Patient's insight and judgment improving. Diagnostics Vital Signs (24Hr): Vital Signs - 24 hr 01/31/25 20:00 02/01/25 07:48 Temperature 98.7 F 98.2 F Pulse Rate 82 78 Respiratory Rate 16 14 Blood Pressure 98/54 L 112/70 Pulse Oximetry 99 98 Oxygen Delivery Method Room Air Room Air BMI result Body Mass Index 19.2 Labs 01/24/25 07:30 01/14/25 14:07 Medications Medications Current Medications Acetaminophen (Acetaminophen 325 Mg Tablet) 650 mg PO Q6H PRN PRN Reason: Headache/Pain, Scale 1-10 Last Admin: 01/24/25 16:07 Dose: 650 mg Al Hydroxide/Mg Hydroxide (Magnesium Hydrox/Alum Hydrox 30 Ml Oral.Susp) 30 ml PO Q6H PRN PRN Reason: Heartburn/Nausea Ascorbic Acid (Ascorbic Acid 500 Mg Tablet) 1,000 mg PO DAILY [facility] Last Admin: 02/01/25 08:54 Dose: 1,000 mg Calcium Carbonate (Calcium Carbonate 750 Mg Tab.Chew) 750 mg PO Q6H PRN PRN Reason: Heartburn Last Admin: 01/11/25 17:51 Dose: 750 mg Clomipramine HCl (Clomipramine Hcl 25 Mg Capsule) 75 mg PO BEDTIME [facility] Last Admin: 01/31/25 20:13 Dose: 75 mg Clotrimazole (Clotrimazole 1 % Cream 15 Gm Tube) 1 appl TOPICAL BID [facility]; Protocol Last Admin: 02/01/25 08:55 Dose: Not Given Divalproex Sodium (Divalproex Sodium 500 Mg Tablet.Dr) 500 mg PO BID [facility] Last Admin: 02/01/25 08:54 Dose: 500 mg Guaifenesin (Guaifenesin La 600 Mg Tab.Er.12h) 600 mg PO BID PRN PRN Reason: Cough Last Admin: 01/23/25 10:51 Dose: 600 mg Hydroxyzine HCl (Hydroxyzine Hcl 25 Mg Tablet) 25 mg PO Q6H PRN PRN Reason: mild anxiety Last Admin: 01/31/25 16:20 Dose: 25 mg Ibuprofen (Ibuprofen 600 Mg Tablet) 600 mg PO Q6H PRN PRN Reason: BOLANOS Lorazepam (Lorazepam 1 Mg Tablet) 1 mg PO TID PRN PRN Reason: Anxiety Last Admin: 01/22/25 10:41 Dose: 1 mg Magnesium Hydroxide (Milk Of Magnesia 30 Ml Oral.Susp) 30 ml PO DAILY PRN PRN Reason: Constipation Last Admin: 01/09/25 10:48 Dose: 30 ml Mirtazapine (Mirtazapine 15 Mg Tablet) 45 mg PO BEDTIME [facility] Last Admin: 01/31/25 20:13 Dose: 45 mg Multivitamins/Vitamin C (Multivitamin Tablet) 1 tab PO DAILY [facility] Last Admin: 02/01/25 10:49 Dose: 1 tab Nicotine Polacrilex (Nicotine Polacrilex 2 Mg Gum) 4 mg BUCCAL Q2H PRN PRN Reason: Nicotine Cravings Ondansetron HCl (Ondansetron Odt 4 Mg Tab.Rapdis) 4 mg TRANSLINGU Q6H PRN PRN Reason: Nausea and Vomiting Last Admin: 01/04/25 20:02 Dose: 4 mg Thiamine HCl (Thiamine Hcl 100 Mg Tablet) 100 mg PO DAILY [facility] Last Admin: 02/01/25 08:54 Dose: 100 mg Allergies Allergies Allergy/AdvReac Type Severity Reaction Status Date / Time No Known Allergies Allergy Verified 12/30/24 11:36 Assessment & Plan Assessment & Plan (1) Encephalopathy: Qualifiers: Encephalopathy type: unspecified encephalopathy Qualified Code(s): G 93.40 - Encephalopathy, unspecified Status: Acute Code(s): G93.40 - Encephalopathy, unspecified Assessment and Plan: 39 years old woman with change in mental status after ECT, 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 At this time her examination was nonfocal except mild extrapyramidal features, probably from previous exposure to neuroleptics. My recommendation is to treat her with Depakote 500 mg twice a day for 3 months and then repeat EEG. If okay, and there was no other benefit of Depakote, it could be stopped. 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 Patient reports depression and anxiety since teenage years. It has worsened significantly over the last year to the point where she has become debilitated; a constant stressor is her house in [place] remaining on the market, unsold; subsequently she has been living with her parents. Patient's depression has been significant and she endorses diminished interest, excessive guilt, low energy, poor concentration, having a force herself to shower... She was sent from [facility] to start [facility] and patient had 1 session this Saturday however her anxiety and depression became so overwhelming these past few days to the point where she could not stop crying or pacing the [place]zano that she felt unable to wait the full 30 days it takes for T MS to be effective; patient has consistent thoughts that life is not worth living; she says she will not actively take her own life but wishes she would just not wake up. Patient says I feel out of my mind... Patient called providers at the [facility] told her to come to the emergency room. Patient endorses history of trauma but does not disclose; says she has been diagnosed with VENKAT as well as depression. Denies history of any manic episodes or behaviors; no drug or alcohol abuse formulation/clinical reasoning: hx of depression, with limited treatment results, though with limited med trials (effexor, abilify/brexpiprazole- tremors; lexapro, mirtazpine). She is overwhelmed with anxiety and depression -dx of VENKAT? Presents for ECT -will taper off lexapro and mirtazpine as she's been on high doses of both for months with no results. -agrees to start Clomipramine and ECT; discussed lithium but she had some reservations PlAN: cv q15 start Clomipramine 25mg lower Lexapro to 20mg (has been on 40mg for few months) continue MIrtazapine 45mg (will taper) Zyrpexa prn for anxiety/agitation ECT for saturday NPO 01/02: Increase Seroquel to 50 mg HS. Continue current management and treatment plan. ECT Wednesday 01/03: Increase Ativan to 1 mg TID. Hold after 8 PM on nights prior to ECT. 01/04: ECT #1 completed. BOLANOS, memory impairment immediately after. anxious. continue current mgmt. 01/05: calm, cooperative. incr anafranil to 50 mg QHS, decrease lexapro to 15 mg daily. ECT tomorrow, NPO p [facility]. 01/06: completed ECT #2 without incident. no s/e from medications, reduced s/e from ECT. continue current mgmt. 01/07: remains depressed and anxious. increase clomipramine to 75 mg QHS, decrease lexapro to 10 daily. ECT in the morning. 01/08: completed ECT #3 without incident today. continue current mgmt through saturday, plan to progress in anafranil/lexapro cross-taper on saturday. 01/09 keep same treatment. 01/10 keep same treatment 01/11: less anxious and depressed. focused on improvement, not worries today. ECT #4 completed without incident this morning. increase anafranil to 100 mg tonight and decrease lexapro to 5 mg tomorrow morning. planning to remain in hospital for entire course. 01/13: ECT #5 completed today. mood fine, not depressed, anxiety down. complete ECT #6 on saturday and decide if course should be completed then or further treatments done next week. DC lexapro. 01/14: Appears confused. guarded. flat affect. Patient responding to questions with short answers; reports feeling okay ; staring at T/W during assessment and tilting head side to side; when asked what she was doing, pt smiled and did not respond. Dr. Crawford decreased Zyprexa to 2.5mg PO TID and placed ECT on hold d/t possible ECT delirium. 01/15: remains delirious today, with some unexpected responses such as knowing the month is january yet asserting the season is fall. will continue current mgmt and observe over w/e. ECT for saturday canceld, anafranil dosing decreased to 50 to avoid an anti-Ach component to the delirium. case discussed with pt's mother for 20 minutes. 01/16: continue tx. 01/17: she shows paranoid delusions with some catatonic features, rather than straight delirium. continue current tx. 01/18: more oriented than last saturday, less PMR. continue present medications and supportive care. will observe for improvement. check EEG today. case d/w danielle and gabriel. likely improving ECT-related delirium. 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 started on VPA 500 BID. further ECTs canceled for now. will follow and allow delirium to clear prior to making further Tx plan changes. 01/20: resolving delirium from recent post-ECT seizure activity, hopefully now quashed. continue VPA 500 BID. case discussed with gabriel; likely will not restart ECT and will focus more on medications management. 01/21: MS continues to trend improved. c/o tiredness, heaviness. DC HS zyprexa. next likely change VPA to all at HS and follow level for Sz efficacy. plan to titrate anafranil prior to discharge and decrease remeron as indicated. pt indicates she would like to start discharge planning. case D/W gabriel. 01/22: MS continues to improve,perhaps a bit more affective expression/flexibility today. asking for more ECT, informed pt the issue is being investigated. agreeable to increase anafranil to 75 today, change VPA to IR formulation, and check labs saturday. will plan for repeat EEG on saturday and T/C resuming ECT if EEG WNL. case discussed with gabriel. 01/23: Keeping to self. pacing unit hallway. patient reports feeling tired and anxious ; pt stated, I'm anxious because I keep thinking about finding a job . She reports passive suicidal ideation; pt stated, I wish I could be with God but I don't have a plan at the moment to do anything . per nursing, slept 9 hours last night. continue tx plan 01/24: continue tx plan 01/25: less PMR, no RUFUS, speech spontaneous, affect flexible, cognitively intact. recheck EEG today, if WNL plan to resume ECT on . titrate anafranil to 100 prior to discharge. 01/26: no PMR, speech spontaneous. appearing more anxious, tense. asking about EEG results and ECT tomorrow. as of late , no read on EEG. will wait for read and plan for ECT resumption saturday if EEG WNL. 01/27: EEG remains abnormal, yet improved from prior. per ray with Dr. Crawford, may resume ECT handling VPA as we typically do. per Nafisa, will check MRI brain prior to resuming ECT as well. continue current mgmt otherwise. case d/w mother, Ty Cunningham at length. 01/28: MRI aborted for unclear reasons, CT head done instead, which showed 4 nails entering right roman catholic area and projecting into right frontal lobe and basal ganglia. will need to pursue neurosurgical eval. plan to transfer to tertiary care facility. ECT on hold, continue pharmacotherapy for now. Tx options discussed with mother, case discussed in detail with gabriel. 01/29: pt reticent for transfer, insistent on ECT. fearful of her mother's finding out about her suicide attempt. MoCA 25/30. per neuro, no neurosurgeon would want to remove the nails as there is only negative impact on pt with no possible benefit to her. 01/30: Continue current management and treatment plan. 01/31: continue current management and treatment plan. 02/01: pending definitive decision on whether or not to pursue ECT. options include ketamine, pharmacotherapy as usual. T/C increasing anafranil to 100 mg. case discussed with gabriel. Reason for continued inpatient stay Substantial Risk for: harm to self, inability to function and rapid decompensation Time Spent With Patient Time: Total time managing care of this patient today _35___ minutes.
[2025-02-01 19:57] VITALS: BP 94/57; PULSE 93; RESP 16; TEMP 36.9; O2SAT 97
[2025-02-01] MEDS: clomiPRAMINE HCl 25 MG CAPSULE 75 MG PO (20:13)
[2025-02-01] MEDS: Mirtazapine 15 MG TABLET 45 MG PO (20:13)
[2025-02-02 08:00] VITALS: BP 107/55; PULSE 76; RESP 14; TEMP 36.6; O2SAT 98
[2025-02-02] MEDS: Thiamine HCL 100 MG TABLET PO (08:51)
[2025-02-02] MEDS: Ascorbic Acid 500 MG TABLET 1000 MG PO (08:51)
[2025-02-02] MEDS: Divalproex Sodium 500 MG TABLET.DR PO (08:51)
[2025-02-02] MEDS: Multivitamin TABLET 1 TAB PO (08:51)
--- NOTE | 2025-02-02 13:00 | P.PNPSI_ITS ---
Subjective Subjective Date of Service: 02/02/25 Reason For Visit: Crisis Interim History: calm, cooperative, pleasant. informed that ECT will not be pursued and ketamine is recommended. pt would like to work toward discharge. agreeable to increase anafranil to 100 mg, change VPA to VPA ER. planning for saturday discharge. per staffm no dep, anx 2. thinking about friends in [place]. no SI/HI. slept 8 hours. Mental Status Exam Mental Status Exam Narrative: Pt is alert and oriented x4; behavior is cooperative. dressed adequately, adequately groomed; depression and anxiety much improved from admission, affect full range and normo-intense; eye contact appropriate; Speech: no RUFUS, spontaneous; no psychomotor retardation present; thought process is organized and goal directed; Thought content: no paranoid delusions noted. no SI/HI expressed. Patient's insight and judgment improving. Diagnostics Vital Signs (24Hr): Vital Signs - 24 hr 02/01/25 19:57 02/02/25 08:00 Temperature 98.4 F 97.8 F Pulse Rate 93 76 Respiratory Rate 16 14 Blood Pressure 94/57 L 107/55 L Pulse Oximetry 97 98 Oxygen Delivery Method Room Air Room Air BMI result Body Mass Index 19.2 Labs 01/24/25 07:30 01/14/25 14:07 Medications Medications Current Medications Acetaminophen (Acetaminophen 325 Mg Tablet) 650 mg PO Q6H PRN PRN Reason: Headache/Pain, Scale 1-10 Last Admin: 01/24/25 16:07 Dose: 650 mg Al Hydroxide/Mg Hydroxide (Magnesium Hydrox/Alum Hydrox 30 Ml Oral.Susp) 30 ml PO Q6H PRN PRN Reason: Heartburn/Nausea Ascorbic Acid (Ascorbic Acid 500 Mg Tablet) 1,000 mg PO DAILY BREA Last Admin: 02/02/25 08:51 Dose: 1,000 mg Calcium Carbonate (Calcium Carbonate 750 Mg Tab.Chew) 750 mg PO Q6H PRN PRN Reason: Heartburn Last Admin: 01/11/25 17:51 Dose: 750 mg Clomipramine HCl (Clomipramine Hcl 25 Mg Capsule) 100 mg PO BEDTIME [facility] Clotrimazole (Clotrimazole 1 % Cream 15 Gm Tube) 1 appl TOPICAL BID BREA; Protocol Last Admin: 02/02/25 08:54 Dose: Not Given Divalproex Sodium (Divalproex Sodium Er 500 Mg Tab.Er.24h) 1,000 mg PO BEDTIME BREA Guaifenesin (Guaifenesin La 600 Mg Tab.Er.12h) 600 mg PO BID PRN PRN Reason: Cough Last Admin: 01/23/25 10:51 Dose: 600 mg Hydroxyzine HCl (Hydroxyzine Hcl 25 Mg Tablet) 25 mg PO Q6H PRN PRN Reason: mild anxiety Last Admin: 01/31/25 16:20 Dose: 25 mg Ibuprofen (Ibuprofen 600 Mg Tablet) 600 mg PO Q6H PRN PRN Reason: BOLANOS Lorazepam (Lorazepam 1 Mg Tablet) 1 mg PO TID PRN PRN Reason: Anxiety Last Admin: 01/22/25 10:41 Dose: 1 mg Magnesium Hydroxide (Milk Of Magnesia 30 Ml Oral.Susp) 30 ml PO DAILY PRN PRN Reason: Constipation Last Admin: 01/09/25 10:48 Dose: 30 ml Mirtazapine (Mirtazapine 15 Mg Tablet) 45 mg PO BEDTIME BREA Last Admin: 02/01/25 20:13 Dose: 45 mg Multivitamins/Vitamin C (Multivitamin Tablet) 1 tab PO DAILY [facility] Last Admin: 02/02/25 08:51 Dose: 1 tab Nicotine Polacrilex (Nicotine Polacrilex 2 Mg Gum) 4 mg BUCCAL Q2H PRN PRN Reason: Nicotine Cravings Ondansetron HCl (Ondansetron Odt 4 Mg Tab.Rapdis) 4 mg TRANSLINGU Q6H PRN PRN Reason: Nausea and Vomiting Last Admin: 01/04/25 20:02 Dose: 4 mg Thiamine HCl (Thiamine Hcl 100 Mg Tablet) 100 mg PO DAILY [facility] Last Admin: 02/02/25 08:51 Dose: 100 mg Allergies Allergies Allergy/AdvReac Type Severity Reaction Status Date / Time No Known Allergies Allergy Verified 12/30/24 11:36 Assessment & Plan Assessment & Plan (1) Encephalopathy: Qualifiers: Encephalopathy type: unspecified encephalopathy Qualified Code(s): G 93.40 - Encephalopathy, unspecified Status: Acute Code(s): G93.40 - Encephalopathy, unspecified Assessment and Plan: 39 years old woman with change in mental status after ECT, 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 At this time her examination was nonfocal except mild extrapyramidal features, probably from previous exposure to neuroleptics. My recommendation is to treat her with Depakote 500 mg twice a day for 3 months and then repeat EEG. If okay, and there was no other benefit of Depakote, it could be stopped. 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 Patient reports depression and anxiety since teenage years. It has worsened significantly over the last year to the point where she has become debilitated; a constant stressor is her house in [place] remaining on the market, unsold; subsequently she has been living with her parents. Patient's depression has been significant and she endorses diminished interest, excessive guilt, low energy, poor concentration, having a force herself to shower... She was sent from the [place] to start TMS and patient had 1 session this Saturday however her anxiety and depression became so overwhelming these past few days to the point where she could not stop crying or pacing the solorzano that she felt unable to wait the full 30 days it takes for T MS to be effective; patient has consistent thoughts that life is not worth living; she says she will not actively take her own life but wishes she would just not wake up. Patient says I feel out of my mind... Patient called providers at the [place] told her to come to the emergency room. Patient endorses history of trauma but does not disclose; says she has been diagnosed with VENKAT as well as depression. Denies history of any manic episodes or behaviors; no drug or alcohol abuse formulation/clinical reasoning: hx of depression, with limited treatment results, though with limited med trials (effexor, abilify/brexpiprazole- tremors; lexapro, mirtazpine). She is overwhelmed with anxiety and depression -dx of VENKAT? Presents for ECT -will taper off lexapro and mirtazpine as she's been on high doses of both for months with no results. -agrees to start Clomipramine and ECT; discussed lithium but she had some reservations PlAN: cv q15 start Clomipramine 25mg lower Lexapro to 20mg (has been on 40mg for few months) continue MIrtazapine 45mg (will taper) Zyrpexa prn for anxiety/agitation ECT for saturday NPO 01/02: Increase Seroquel to 50 mg HS. Continue current management and treatment plan. ECT Wednesday 01/03: Increase Ativan to 1 mg TID. Hold after 8 PM on nights prior to ECT. 01/04: ECT #1 completed. BOLANOS, memory impairment immediately after. anxious. continue current mgmt. 01/05: calm, cooperative. incr anafranil to 50 mg QHS, decrease lexapro to 15 mg daily. ECT tomorrow, NPO p [place]. 01/06: completed ECT #2 without incident. no s/e from medications, reduced s/e from ECT. continue current mgmt. 01/07: remains depressed and anxious. increase clomipramine to 75 mg QHS, decrease lexapro to 10 daily. ECT in the morning. 01/08: completed ECT #3 without incident today. continue current mgmt through saturday, plan to progress in anafranil/lexapro cross-taper on saturday. 01/09 keep same treatment. 01/10 keep same treatment 01/11: less anxious and depressed. focused on improvement, not worries today. ECT #4 completed without incident this morning. increase anafranil to 100 mg tonight and decrease lexapro to 5 mg tomorrow morning. planning to remain in hospital for entire course. 01/13: ECT #5 completed today. mood fine, not depressed, anxiety down. complete ECT #6 on saturday and decide if course should be completed then or further treatments done next week. DC lexapro. 01/14: Appears confused. guarded. flat affect. Patient responding to questions with short answers; reports feeling okay ; staring at T/W during assessment and tilting head side to side; when asked what she was doing, pt smiled and did not respond. Dr. Crawford decreased Zyprexa to 2.5mg PO TID and placed ECT on hold d/t possible ECT delirium. 01/15: remains delirious today, with some unexpected responses such as knowing the month is january yet asserting the season is fall. will continue current mgmt and observe over w/e. ECT for saturday canceld, anafranil dosing decreased to 50 to avoid an anti-Ach component to the delirium. case discussed with pt's mother for 20 minutes. 01/16: continue tx. 01/17: she shows paranoid delusions with some catatonic features, rather than straight delirium. continue current tx. 01/18: more oriented than last saturday, less PMR. continue present medications and supportive care. will observe for improvement. check EEG today. case d/w danielle and gabriel. likely improving ECT-related delirium. 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 started on VPA 500 BID. further ECTs canceled for now. will follow and allow delirium to clear prior to making further Tx plan changes. 01/20: resolving delirium from recent post-ECT seizure activity, hopefully now quashed. continue VPA 500 BID. case discussed with gabriel; likely will not restart ECT and will focus more on medications management. 01/21: MS continues to trend improved. c/o tiredness, heaviness. DC HS zyprexa. next likely change VPA to all at HS and follow level for Sz efficacy. plan to titrate anafranil prior to discharge and decrease remeron as indicated. pt indicates she would like to start discharge planning. case D/W gabriel. 01/22: MS continues to improve,perhaps a bit more affective expression/flexibility today. asking for more ECT, informed pt the issue is being investigated. agreeable to increase anafranil to 75 today, change VPA to IR formulation, and check labs saturday morning. will plan for repeat EEG on saturday and T/C resuming ECT if EEG WNL. case discussed with gabriel. 01/23: Keeping to self. pacing unit hallway. patient reports feeling tired and anxious ; pt stated, I'm anxious because I keep thinking about finding a job . She reports passive suicidal ideation; pt stated, I wish I could be with God but I don't have a plan at the moment to do anything . per nursing, slept 9 hours last night. continue tx plan 01/24: continue tx plan 01/25: less PMR, no RUFUS, speech spontaneous, affect flexible, cognitively intact. recheck EEG today, if WNL plan to resume ECT on . titrate anafranil to 100 prior to discharge. 01/26: no PMR, speech spontaneous. appearing more anxious, tense. asking about EEG results and ECT tomorrow. as of late afternoon, no read on EEG. will wait for read and plan for ECT resumption saturday if EEG WNL. 01/27: EEG remains abnormal, yet improved from prior. per ray with Dr. Crawford, may resume ECT handling VPA as we typically do. per Nafisa, will check MRI brain prior to resuming ECT as well. continue current mgmt otherwise. case d/w mother, Ty Cunningham at length. 01/28: MRI aborted for unclear reasons, CT head done instead, which showed 4 nails entering right faith area and projecting into right frontal lobe and basal ganglia. will need to pursue neurosurgical eval. plan to transfer to tertiary care facility. ECT on hold, continue pharmacotherapy for now. Tx options discussed with mother, case discussed in detail with gabriel. 01/29: pt reticent for transfer, insistent on ECT. fearful of her mother's finding out about her suicide attempt. MoCA 25/30. per neuro, no neurosurgeon would want to remove the nails as there is only negative impact on pt with no possible benefit to her. gabriel to review literature re ECT on patients with metal FBs in their brains prior to decision to proceed or not. 01/30: Continue current management and treatment plan. 01/31: continue current management and treatment plan. 02/01: pending definitive decision on whether or not to pursue ECT. options include ketamine, pharmacotherapy as usual. T/C increasing anafranil to 100 mg. case discussed with gabriel. 02/02: informed ECT would not be pursued at present and ketamine would be recommended. planning for saturday discharge. reporting resolved depression and low anxiety. increase anafranil to 100 mg and change VPA from IR 500 BID to 1000 mg ER. Reason for continued inpatient stay Substantial Risk for: rapid decompensation Time Spent With Patient Time: Total time managing care of this patient today __35__ minutes.
[2025-02-02 20:00] VITALS: BP 97/55; PULSE 82; RESP 18; TEMP 36.7; O2SAT 98
[2025-02-02] MEDS: Mirtazapine 15 MG TABLET 45 MG PO (20:05)
[2025-02-02] MEDS: clomiPRAMINE HCl 25 MG CAPSULE 100 MG PO (20:06)
[2025-02-02] MEDS: Divalproex Sodium ER 500 MG TAB.ER.24H 1000 MG PO (20:06)
[2025-02-03 08:00] VITALS: BP 97/57; PULSE 77; RESP 16; TEMP 36.6; O2SAT 97
[2025-02-03] MEDS: Thiamine HCL 100 MG TABLET PO (08:24)
[2025-02-03] MEDS: Ascorbic Acid 500 MG TABLET 1000 MG PO (08:24)
[2025-02-03] MEDS: Multivitamin TABLET 1 TAB PO (08:25)
--- NOTE | 2025-02-03 14:56 | HO.PSYCHPN ---
Subjective Subjective Date of Service: 02/03/25 Reason For Visit: Crisis Interim History: calm, cooperative. asking again about ECT. Tx plan reviewed with patient. planning for saturday discharge. denies s/e of meds, agrees to continue with current plan for now. per staff, nervous but excited to leave. slept about 8 hours. Mental Status Exam Mental Status Exam Narrative: Pt is alert and oriented x4; behavior is cooperative. dressed adequately, adequately groomed; depression and anxiety much improved from admission, affect full range and normo-intense; eye contact appropriate; Speech: no RUFUS, spontaneous; no psychomotor retardation present; thought process is organized and goal directed; Thought content: no paranoid delusions noted. no SI/HI expressed. Patient's insight and judgment fair. Diagnostics Vital Signs (24Hr): Vital Signs - 24 hr 02/02/25 20:00 02/03/25 08:00 Temperature 98.0 F 97.8 F Pulse Rate 82 77 Respiratory Rate 18 16 Blood Pressure 97/55 L 97/57 L Pulse Oximetry 98 97 Oxygen Delivery Method Room Air Room Air BMI result Body Mass Index 19.2 Labs 01/24/25 07:30 01/14/25 14:07 Medications Medications Current Medications Acetaminophen (Acetaminophen 325 Mg Tablet) 650 mg PO Q6H PRN PRN Reason: Headache/Pain, Scale 1-10 Last Admin: 01/24/25 16:07 Dose: 650 mg Al Hydroxide/Mg Hydroxide (Magnesium Hydrox/Alum Hydrox 30 Ml Oral.Susp) 30 ml PO Q6H PRN PRN Reason: Heartburn/Nausea Ascorbic Acid (Ascorbic Acid 500 Mg Tablet) 1,000 mg PO DAILY PENDING SALE TO [facility] Last Admin: 02/03/25 08:24 Dose: 1,000 mg Calcium Carbonate (Calcium Carbonate 750 Mg Tab.Chew) 750 mg PO Q6H PRN PRN Reason: Heartburn Last Admin: 01/11/25 17:51 Dose: 750 mg Clomipramine HCl (Clomipramine Hcl 25 Mg Capsule) 100 mg PO BEDTIME BREA Last Admin: 02/02/25 20:06 Dose: 100 mg Clotrimazole (Clotrimazole 1 % Cream 15 Gm Tube) 1 appl TOPICAL BID BREA; Protocol Last Admin: 02/03/25 08:45 Dose: Not Given Divalproex Sodium (Divalproex Sodium Er 500 Mg Tab.Er.24h) 1,000 mg PO BEDTIME BREA Last Admin: 02/02/25 20:06 Dose: 1,000 mg Guaifenesin (Guaifenesin La 600 Mg Tab.Er.12h) 600 mg PO BID PRN PRN Reason: Cough Last Admin: 01/23/25 10:51 Dose: 600 mg Hydroxyzine HCl (Hydroxyzine Hcl 25 Mg Tablet) 25 mg PO Q6H PRN PRN Reason: mild anxiety Last Admin: 01/31/25 16:20 Dose: 25 mg Ibuprofen (Ibuprofen 600 Mg Tablet) 600 mg PO Q6H PRN PRN Reason: BOLANOS Lorazepam (Lorazepam 1 Mg Tablet) 1 mg PO TID PRN PRN Reason: Anxiety Last Admin: 01/22/25 10:41 Dose: 1 mg Magnesium Hydroxide (Milk Of Magnesia 30 Ml Oral.Susp) 30 ml PO DAILY PRN PRN Reason: Constipation Last Admin: 01/09/25 10:48 Dose: 30 ml Mirtazapine (Mirtazapine 15 Mg Tablet) 45 mg PO BEDTIME PENDING SALE TO [facility] Last Admin: 02/02/25 20:05 Dose: 45 mg Multivitamins/Vitamin C (Multivitamin Tablet) 1 tab PO DAILY PENDING SALE TO [facility] Last Admin: 02/03/25 08:25 Dose: 1 tab Nicotine Polacrilex (Nicotine Polacrilex 2 Mg Gum) 4 mg BUCCAL Q2H PRN PRN Reason: Nicotine Cravings Ondansetron HCl (Ondansetron Odt 4 Mg Tab.Rapdis) 4 mg TRANSLINGU Q6H PRN PRN Reason: Nausea and Vomiting Last Admin: 01/04/25 20:02 Dose: 4 mg Thiamine HCl (Thiamine Hcl 100 Mg Tablet) 100 mg PO DAILY PENDING SALE TO [facility] Last Admin: 02/03/25 08:24 Dose: 100 mg Allergies Allergies Allergy/AdvReac Type Severity Reaction Status Date / Time No Known Allergies Allergy Verified 12/30/24 11:36 Assessment & Plan Assessment & Plan (1) Encephalopathy: Qualifiers: Encephalopathy type: unspecified encephalopathy Qualified Code(s): G93.40 - Encephalopathy, unspecified Status: Acute Code(s): G93.40 - Encephalopathy, unspecified Assessment and Plan: 39 years old woman with change in mental status after ECT, 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 At this time her examination was nonfocal except mild extrapyramidal features, probably from previous exposure to neuroleptics. My recommendation is to treat her with Depakote 500 mg twice a day for 3 months and then repeat EEG. If okay, and there was no other benefit of Depakote, it could be stopped. 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 Patient reports depression and anxiety since teenage years. It has worsened significantly over the last year to the point where she has become debilitated; a constant stressor is her house in [place] remaining on the market, unsold; subsequently she has been living with her parents. Patient's depression has been significant and she endorses diminished interest, excessive guilt, low energy, poor concentration, having a force herself to shower... [facility] was [facility] to [facility] and patient had 1 session this Saturday however her anxiety and depression became so overwhelming these past few days to the point where she could not stop crying or pacing the solorzano that she felt unable to wait the full 30 days it takes for T MS to be effective; patient has consistent thoughts that life is not worth living; she says she will not actively take her own life but wishes she would just not wake up. Patient says I feel out of my mind... Patient called providers at the [facility] told her to come to the emergency room. Patient endorses history of trauma but does not disclose; says she has been diagnosed with VENKAT as well as depression. Denies history of any manic episodes or behaviors; no drug or alcohol abuse formulation/clinical reasoning: hx of depression, with limited treatment results, though with limited med trials (effexor, abilify/brexpiprazole- tremors; lexapro, mirtazpine). She is overwhelmed with anxiety and depression -dx of VENKAT? Presents for ECT -will taper off lexapro and mirtazpine as she's been on high doses of both for months with no results. -agrees to start Clomipramine and ECT; discussed lithium but she had some reservations PlAN: cv q15 start Clomipramine 25mg lower Lexapro to 20mg (has been on 40mg for few months) continue MIrtazapine 45mg (will taper) Zyrpexa prn for anxiety/agitation ECT for saturday NPO 01/02: Increase Seroquel to 50 mg HS. Continue current management and treatment plan. ECT Wednesday 01/03: Increase Ativan to 1 mg TID. Hold after 8 PM on nights prior to ECT. 01/04: ECT #1 completed. BOLANOS, memory impairment immediately after. anxious. continue current mgmt. 01/05: calm, cooperative. incr anafranil to 50 mg QHS, decrease lexapro to 15 mg daily. ECT tomorrow, NPO p MN. 01/06: completed ECT #2 without incident. no s/e from medications, reduced s/e from ECT. continue current mgmt. 01/07: remains depressed and anxious. increase clomipramine to 75 mg QHS, decrease lexapro to 10 daily. ECT in the morning. 01/08: completed ECT #3 without incident today. continue current mgmt through saturday, plan to progress in anafranil/lexapro cross-taper on saturday. 01/09 keep same treatment. 01/10 keep same treatment 01/11: less anxious and depressed. focused on improvement, not worries today. ECT #4 completed without incident this morning. increase anafranil to 100 mg tonight and decrease lexapro to 5 mg tomorrow morning. planning to remain in hospital for entire course. 01/13: ECT #5 completed today. mood fine, not depressed, anxiety down. complete ECT #6 on saturday and decide if course should be completed then or further treatments done next week. DC lexapro. 01/14: Appears confused. guarded. flat affect. Patient responding to questions with short answers; reports feeling okay ; staring at T/W during assessment and tilting head side to side; when asked what she was doing, pt smiled and did not respond. Dr. Crawford decreased Zyprexa to 2.5mg PO TID and placed ECT on hold d/t possible ECT delirium. 01/15: remains delirious today, with some unexpected responses such as knowing the month is january yet asserting the season is fall. will continue current mgmt and observe over w/e. ECT for saturday canceld, anafranil dosing decreased to 50 to avoid an anti-Ach component to the delirium. case discussed with pt's mother for 20 minutes. 01/16: continue tx. 01/17: she shows paranoid delusions with some catatonic features, rather than straight delirium. continue current tx. 01/18: more oriented than last saturday, less PMR. continue present medications and supportive care. will observe for improvement. check EEG today. case d/w danielle and gabriel. likely improving ECT-related delirium. 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 started on VPA 500 BID. further ECTs canceled for now. will follow and allow delirium to clear prior to making further Tx plan changes. 01/20: resolving delirium from recent post-ECT seizure activity, hopefully now quashed. continue VPA 500 BID. case discussed with gabriel; likely will not restart ECT and will focus more on medications management. 01/21: MS continues to trend improved. c/o tiredness, heaviness. DC HS zyprexa. next likely change VPA to all at HS and follow level for Sz efficacy. plan to titrate anafranil prior to discharge and decrease remeron as indicated. pt indicates she would like to start discharge planning. case D/W gabriel. 01/22: MS continues to improve,perhaps a bit more affective expression/flexibility today. asking for more ECT, informed pt the issue is being investigated. agreeable to increase anafranil to 75 today, change VPA to IR formulation, and check labs saturday. will plan for repeat EEG on saturday and T/C resuming ECT if EEG WNL. case discussed with gabriel. 01/23: Keeping to self. pacing unit hallway. patient reports feeling tired and anxious ; pt stated, I'm anxious because I keep thinking about finding a job . She reports passive suicidal ideation; pt stated, I wish I could be with God but I don't have a plan at the moment to do anything . per nursing, slept 9 hours last night. continue tx plan 01/24: continue tx plan 01/25: less PMR, no RUFUS, speech spontaneous, affect flexible, cognitively intact. recheck EEG today, if WNL plan to resume ECT on . titrate anafranil to 100 prior to discharge. 01/26: no PMR, speech spontaneous. appearing more anxious, tense. asking about EEG results and ECT tomorrow. as of late , no read on EEG. will wait for read and plan for ECT resumption saturday if EEG WNL. 01/27: EEG remains abnormal, yet improved from prior. per ray with Dr. Crawford, may resume ECT handling VPA as we typically do. per Nafisa, will check MRI brain prior to resuming ECT as well. continue current mgmt otherwise. case d/w mother, Ty Cunningham at length. 01/28: MRI aborted for unclear reasons, CT head done instead, which showed 4 nails entering right confucianism area and projecting into right frontal lobe and basal ganglia. will need to pursue neurosurgical eval. plan to transfer to tertiary care facility. ECT on hold, continue pharmacotherapy for now. Tx options discussed with mother, case discussed in detail with gabriel. 01/29: pt reticent for transfer, insistent on ECT. fearful of her mother's finding out about her suicide attempt. MoCA 25/30. per neuro, no neurosurgeon would want to remove the nails as there is only negative impact on pt with no possible benefit to her. gabriel to review literature re ECT on patients with metal FBs in their brains prior to decision to proceed or not. 01/30: Continue current management and treatment plan. 01/31: continue current management and treatment plan. 02/01: pending definitive decision on whether or not to pursue ECT. options include ketamine, pharmacotherapy as usual. T/C increasing anafranil to 100 mg. case discussed with gabriel. 02/02: informed ECT would not be pursued at present and ketamine would be recommended. planning for saturday discharge. reporting resolved depression and low anxiety. increase anafranil to 100 mg and change VPA from IR 500 BID to 1000 mg ER. 02/03: stable, no change in presentation. no s/e from meds. continue current mgmt. 30 minute call with parents to discuss medical condition. planning for saturday discharge, [facility]. Reason for continued inpatient stay Substantial Risk for: rapid decompensation Time Spent With Patient Time: Total time managing care of this patient today __50__ minutes.
[2025-02-03 20:00] VITALS: BP 92/62; PULSE 88; RESP 16; TEMP 36.7; O2SAT 97
[2025-02-03] MEDS: Mirtazapine 15 MG TABLET 45 MG PO (20:11)
[2025-02-03] MEDS: clomiPRAMINE HCl 25 MG CAPSULE 100 MG PO (20:11)
[2025-02-03] MEDS: Divalproex Sodium ER 500 MG TAB.ER.24H 1000 MG PO (20:11)
[2025-02-04 07:00] VITALS: BMI 19.2
[2025-02-04 08:55] VITALS: BP 110/56; PULSE 99; RESP 16; TEMP 36.5; O2SAT 98
[2025-02-04] MEDS: Ascorbic Acid 500 MG TABLET 1000 MG PO (08:56)
[2025-02-04] MEDS: Multivitamin TABLET 1 TAB PO (08:56)
[2025-02-04] MEDS: Thiamine HCL 100 MG TABLET PO (08:57)
[2025-02-04] MEDS: hydrOXYzine HCL 25 MG TABLET PO (14:02)
--- NOTE | 2025-02-04 15:53 | PM.PSYDC ---
DS: Providers Provider Date of Service: 02/04/25 Date of admission: 12/31/24 12:28 Date of discharge: 02/05/25 Primary care physician: None Physician Consults: 01/01/25 12:06 Consult to Hospitalist Routine Comment: [place]ing [place] [facility] Reason For Exam: pre op ect 01/01/25 13:18 Consult to Hospitalist Routine Comment: [place]ing [place] [facility] Reason For Exam: risk strattify for ECT 01/19/25 11:48 Consult to Neurology Routine Consulting Provider: [facility] Reason for consultation: confusion abn eeg s/p ect Has provider been notified: No 01/27/25 20:12 Consult to Neurology Routine Consulting Provider: [facility] Reason for consultation: Abn CAT scan Has provider been notified: No 01/27/25 21:07 Consult to Hospitalist Stat Comment: per request of , ?medical, ICU admit Consulting [place] [facility] Reason For Exam: abn CAT-?pt put a nail gun to head with insert DS: Diagnosis Discharge Diagnosis (1) Encephalopathy: Status: Acute (2) Major depressive disorder, recurrent severe without psychotic features: Status: Acute (3) Traumatic brain injury: Status: Acute (4) 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: Status: Acute DS: Medications Discharge Medications Home Medications: Home Medications ?Medication ?Instructions ?Recorded ?Confirmed lorazepam 0.5 mg tablet (Ativan) 0.5 mg PO QID PRN Anxiety 12/30/24 12/31/24 mirtazapine 45 mg tablet 45 mg PO BEDTIME 12/30/24 12/30/24 ascorbic acid (vitamin C) 500 mg 1,000 mg PO DAILY 01/01/25 01/01/25 tablet multivitamin 1 tab PO DAILY 01/01/25 01/01/25 omega-3 fatty acids 500 mg capsule 1,000 mg PO DAILY 01/01/25 01/01/25 Previous Rx's ?Medication ?Instructions ?Recorded clomipramine 25 mg capsule 100 mg (4 x 25 mg) PO BEDTIME 30 02/04/25 days #120 caps divalproex 500 mg tablet,extended 1,000 mg (2 x 500 mg) PO BEDTIME 02/04/25 release 24 hr 30 days #60 tabs hydroxyzine HCl 25 mg tablet 25 mg PO DAILY PRN mild anxiety 30 02/04/25 days #30 tabs lorazepam 1 mg tablet 1 mg PO TID PRN Anxiety 10 days #0 02/04/25 tabs Mental Status Exam Mental Status Exam Narrative: Pt is alert and oriented x4; behavior is cooperative. dressed adequately, adequately groomed; depression and anxiety much improved from admission, affect full range and normo-intense; eye contact appropriate; Speech: no RUFUS, spontaneous; no psychomotor retardation present; thought process is organized and goal directed; Thought content: no paranoid delusions noted. no SI/HI/AVH. mood really decent. Patient's insight and judgment fair. Data Data Completed and Pending Completed studies during hospitalization [Text1]: 12/30/24 Unknown Urine clean catch - Clean Catch Midstream Urine Culture - Final DS: Summary Hospital Course Hospital Course: per 01/01 admission note: HPI Narrative: Patient is a 39-year-old female, [employer] , with history of MDD, VENKAT, who presents for worsening and overwhelming anxiety and hopes to get ECT treatment. Patient reports depression and anxiety since teenage years. It has worsened significantly over the last year to the point where she has become debilitated; a constant stressor is her house in [place] remaining on the market, unsold; subsequently she has been living with her parents. Patient's depression has been significant and she endorses diminished interest, excessive guilt, low energy, poor concentration, having a force herself to shower... She was sent from the MD to start TMS and patient had 1 session this Saturday however her anxiety and depression became so overwhelming these past few days to the point where she could not stop crying or pacing the solorzano that she felt unable to wait the full 30 days it takes for T MS to be effective; patient has consistent thoughts that life is not worth living; she says she will not actively take her own life but wishes she would just not wake up. Patient says I feel out of my mind... Patient called providers at the MD told her to come to the emergency room. Patient endorses history of trauma but does not disclose; says she has been diagnosed with VENKAT as well as depression. Denies history of any manic episodes or behaviors; no drug or alcohol abuse pt seen at 1:30pm on 01/01/25 Past Psychiatric History: Sees Dr. Reyes at the MD effexor for years; abilify tremors brexpiprazole tremors Medical Evaluation Reviewed: Yes [facility] Medical History (Updated 12/30/24 @ 13:15 by Stefan Cunningham MD) Major depressive disorder, recurrent severe without psychotic features History of OCD (obsessive compulsive disorder) Family History: grew up in [place] with both parents and 1 bio sister and 1 adopted brother (pt is oldest of 3) pt did well in school; was valedictorian in . 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 Develop Anorexia Nervosa there and w hospitalized in 2010 and discharged medically in 2011. Pt moved to [facility] last year and worked for [email or web address], bought her own home, had friends and felt happy until her job was eliminated; she couldn't find another job right away and her home was unaffordable; she came home to live with parents. Social History: see above Substance History: denies Trauma History: moral dilemmas in [employer] per pt Precis: Patient is a 39-year-old female, [place] , with history of MDD, VENKAT, who presents for worsening and overwhelming anxiety and hopes to get ECT treatment. Patient reports depression and anxiety since teenage years. It has worsened significantly over the last year to the point where she has become debilitated; a constant stressor is her house in [place] remaining on the market, unsold; subsequently she has been living with her parents. Patient's depression has been significant and she endorses diminished interest, excessive guilt, low energy, poor concentration, having a force herself to shower... She was sent from the MD to start TMS and patient had 1 session this Saturday however her anxiety and depression became so overwhelming these past few days to the point where she could not stop crying or pacing the solorzano that she felt unable to wait the full 30 days it takes for T MS to be effective; patient has consistent thoughts that life is not worth living; she says she will not actively take her own life but wishes she would just not wake up. Patient says I feel out of my mind... Patient called providers at the MD told her to come to the emergency room. Patient endorses history of trauma but does not disclose; says she has been diagnosed with VENKAT as well as depression. Denies history of any manic episodes or behaviors; no drug or alcohol abuse formulation/clinical reasoning: hx of depression, with limited treatment results, though with limited med trials (effexor, abilify/brexpiprazole- tremors; lexapro, mirtazpine). She is overwhelmed with anxiety and depression -dx of VENKAT? Presents for ECT -will taper off lexapro and mirtazpine as she's been on high doses of both for months with no results. -agrees to start Clomipramine and ECT; discussed lithium but she had some reservations 01/01: start Clomipramine 25mg. lower Lexapro to 20mg (has been on 40mg for few months). continue MIrtazapine 45mg (will taper). Zyrpexa prn for anxiety/agitation. ECT for saturday. 01/02: Increase Seroquel to 50 mg HS. Continue current management and treatment plan. ECT Wednesday 01/03: Increase Ativan to 1 mg TID. Hold after 8 PM on nights prior to ECT. 01/04: ECT #1 completed. BOLANOS, memory impairment immediately after. anxious. continue current mgmt. 01/05: calm, cooperative. incr anafranil to 50 mg QHS, decrease lexapro to 15 mg daily. ECT tomorrow, NPO p MN. 01/06: completed ECT #2 without incident. no s/e from medications, reduced s/e from ECT. continue current mgmt. 01/07: remains depressed and anxious. increase clomipramine to 75 mg QHS, decrease lexapro to 10 daily. ECT in the morning. 01/08: completed ECT #3 without incident today. continue current mgmt through saturday, plan to progress in anafranil/lexapro cross-taper on saturday. 01/09 keep same treatment. 01/10 keep same treatment 01/11: less anxious and depressed. focused on improvement, not worries today. ECT #4 completed without incident this morning. increase anafranil to 100 mg tonight and decrease lexapro to 5 mg tomorrow morning. planning to remain in hospital for entire course. 01/13: ECT #5 completed today. mood fine, not depressed, anxiety down. complete ECT #6 on saturday and decide if course should be completed then or further treatments done next week. DC lexapro. 01/14: Appears confused. guarded. flat affect. Patient responding to questions with short answers; reports feeling okay ; staring at T/W during assessment and tilting head side to side; when asked what she was doing, pt smiled and did not respond. Dr. Crawford decreased Zyprexa to 2.5mg PO TID and placed ECT on hold d/t possible ECT delirium. 01/15: remains delirious today, with some unexpected responses such as knowing the month is january yet asserting the season is fall. will continue current mgmt and observe over w/e. ECT for saturday cancelled, anafranil dosing decreased to 50 to avoid an anti-Ach component to the delirium. case discussed with pt's mother for 20 minutes. 01/16: continue tx. 01/17: she shows paranoid delusions with some catatonic features, rather than straight delirium. continue current tx. 01/18: more oriented than last saturday, less PMR. continue present medications and supportive care. will observe for improvement. check EEG today. case d/w sushma. likely improving ECT-related delirium. 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 started on VPA 500 BID. further ECTs canceled for now. will follow and allow delirium to clear prior to making further Tx plan changes. 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 At this time her examination was nonfocal except mild extrapyramidal features, probably from previous exposure to neuroleptics. My recommendation is to treat her with Depakote 500 mg twice a day for 3 months and then repeat EEG. If okay, and there was no other benefit of Depakote, it could be stopped. 01/20: resolving delirium from recent post-ECT seizure activity, hopefully now quashed. continue VPA 500 BID. case discussed with gabriel; likely will not restart ECT and will focus more on medications management. 01/21: MS continues to trend improved. c/o tiredness, heaviness. DC HS zyprexa. next likely change VPA to all at HS and follow level for Sz efficacy. plan to titrate anafranil prior to discharge and decrease remeron as indicated. pt indicates she would like to start discharge planning. case D/W gabriel. 01/22: MS continues to improve,perhaps a bit more affective expression/flexibility today. asking for more ECT, MD informed pt the issue is being investigated. agreeable to increase anafranil to 75 today, change VPA to IR formulation, and check labs saturday. will plan for repeat EEG on saturday and T/C resuming ECT if EEG WNL. case discussed with gabriel. 01/23: Keeping to self. pacing unit hallway. patient reports feeling tired and anxious ; pt stated, I'm anxious because I keep thinking about finding a job . She reports passive suicidal ideation; pt stated, I wish I could be with God but I don't have a plan at the moment to do anything . per nursing, slept 9 hours last night. continue tx plan 01/24: continue tx plan 01/25: less PMR, no RUFUS, speech spontaneous, affect flexible, cognitively intact. recheck EEG today, if WNL plan to resume ECT on . titrate anafranil to 100 prior to discharge. 01/26: no PMR, speech spontaneous. appearing more anxious, tense. asking about EEG results and ECT tomorrow. as of late afternoon, no read on EEG. will wait for read and plan for ECT resumption saturday if EEG WNL. 01/27: EEG remains abnormal, yet improved from prior. per ray with Dr. Crawford, may resume ECT handling VPA as we typically do. per Nafisa, will check MRI brain prior to resuming ECT as well. continue current mgmt otherwise. case d/w mother, Shahid Cunninghameem at length. 01/28: MRI aborted for unclear reasons, CT head done instead, which showed 4 nails entering right confucianist area and projecting into right frontal lobe and basal ganglia. will need to pursue neurosurgical eval. plan to transfer to tertiary care facility. ECT on hold, continue pharmacotherapy for now. Tx options discussed with mother, case discussed in detail with gabriel. per neuro consult addendum: Her head CT revealed an unusual finding of nails in right frontal lobe. She said that she tried to take her life by shooting with a nail gun on right side of her forehead last year. She also stated that ECT treatment has been life saving and she wanted to continue it. This finding might explain some of the EEG abnormalities noted on her test. Adjusted need for an antiepileptic was permanent. MRI could not be obtained and not really needed. ECT treatment can continue and after that Depakote 500 mg twice a day should also continue, permanently. 01/29: pt reticent for transfer, insistent on ECT. fearful of her mother's finding out about her suicide attempt. MoCA 25/30. per neuro, no neurosurgeon would want to remove the nails as there is only negative impact on pt with no possible benefit to her. gabriel to review literature re ECT on patients with metal FBs in their brains prior to decision to proceed or not. 01/30: Continue current management and treatment plan. 01/31: continue current management and treatment plan. 02/01: pending definitive decision on whether or not to pursue ECT. options include ketamine, pharmacotherapy as usual. T/C increasing anafranil to 100 mg. case discussed with gabriel. 02/02: informed ECT would not be pursued at present and ketamine would be recommended. planning for saturday discharge. reporting resolved depression and low anxiety. increase anafranil to 100 mg and change VPA from IR 500 BID to 1000 mg ER. 02/03: stable, no change in presentation. no s/e from meds. continue current mgmt. 30 minute call with parents to discuss medical condition. planning for saturday discharge, [facility] 02/04: stable, safe. vast improvement in mood and affect from admission. meds reviewed, reconciled, prescribed. 02/05: meeting held with pt's parents. pt remains stable, improved. discharged as per plan. Time Spent with Patient Time attestation: Total time managing care of this patient today __45__ minutes. Discharge Plan Discharge Anticipated Discharge Date/Time: 02/05/25 12:00 Patient Disposition: Home, Self-Care Discharge Diagnosis: Major Depressive Disorder Traumatic Brain Injury Retained Magnetic Foreign Body in Multiple Sites (brain) Referrals: Employment/Career Center Support: [employer] [Other] - 1 Week (Call or walk-in M-F 8am-3pm to request assistance with job search) Employment/Career Center Support: [employer] [Other] - 1 Week (Call or walk-in M/Tues/W/F 9am-4pm or 10am-4pm to request assistance in job search) [facility] (Therapy) [Other] - 02/11/25 11:00 am (VIDEO APPOINTMENT) [facility] (Therapy) [Other] - 02/18/25 11:00 am (VIDEO APPOINTMENT) [facility] (Therapy) [Other] - 02/25/25 11:00 am (VIDEO APPOINTMENT) Dr. Camilo Reyes (Psychiatry) [Other] - 02/12/25 11:00 am (VIDEO APPOINTMENT -It is recommended that you not miss this appointment as it will be your last appointment with Dr. Reyes. You will be reassigned to a new provider after this appointment with Dr. Reyes. ) STEPHANIE Art (Therapy) [Other] - 02/08/25 11:00 am (IN OFFICE APPOINTMENT) Bran Bernstein MD [Physician] - 02/12/25 10:30 am (02-04-25 your follow up appt with Dr. Bernstein is scheduled for 02-12-25 @ 10:30am. fax [phone] Attn: Mere) Discharge Medications: New divalproex 500 mg Tablet Extended Release 24 Hr 1,000 mg PO BEDTIME 30 Days Qty: 60 0RF hydroxyzine HCl 25 mg Tablet 25 mg PO DAILY PRN (Reason: mild anxiety) 30 Days Qty: 30 0RF lorazepam 1 mg Tablet 1 mg PO TID PRN (Reason: Anxiety) 10 Days Qty: 0 0RF clomipramine 25 mg Capsule 100 mg PO BEDTIME 30 Days Qty: 120 0RF Continued lorazepam [Ativan] 0.5 mg Tablet 0.5 mg PO QID PRN (Reason: Anxiety) mirtazapine 45 mg Tablet 45 mg PO BEDTIME multivitamin Tablet 1 tab PO DAILY ascorbic acid (vitamin C) 500 mg Tablet 1,000 mg PO DAILY omega-3 fatty acids 500 mg Capsule 1,000 mg PO DAILY Discontinued quetiapine 25 mg Tablet 25 mg PO BEDTIME PRN (Reason: Anxiety) escitalopram oxalate 20 mg Tablet 40 mg PO DAILY Discharge Orders: Discharge Order (Routine); Ordered 02/05/25 Ordered By: Kalen Crawford Diet: Advance to usual diet Activity on Discharge: As tolerated Stand Alone Forms: Patient Portal Discharge page, Community Support Print Language: Polish Care Plan Goals: remain safe and stable in the outpatient treatment setting Health Concerns: retained metal fragments in the brain Plan of Treatment: take medications as prescribed, attend appointments as scheduled Assessment: not at imminent risk of harm to self or others Discharge Date/Time: 02/05/25 11:30
[2025-02-04 19:20] VITALS: BP 94/54; PULSE 84; RESP 14; TEMP 36.8; O2SAT 98
[2025-02-04] MEDS: clomiPRAMINE HCl 25 MG CAPSULE 100 MG PO (20:39)
[2025-02-04] MEDS: Mirtazapine 15 MG TABLET 45 MG PO (20:39)
[2025-02-04] MEDS: Divalproex Sodium ER 500 MG TAB.ER.24H 1000 MG PO (20:39)
[2025-02-05 08:00] VITALS: BP 120/72; PULSE 70; RESP 18; TEMP 36.6; O2SAT 98
[2025-02-05] MEDS: Thiamine HCL 100 MG TABLET PO (08:26)
[2025-02-05] MEDS: Ascorbic Acid 500 MG TABLET 1000 MG PO (08:26)
[2025-02-05] MEDS: Multivitamin TABLET 1 TAB PO (08:26)
== END 2025-02-05 11:30 | disposition home or self-care (01) | DRG 885 ==
LOC: HO.ED 12-31 12:59 → HO.PADLT16 12-31 15:33
PROVIDERS: Psychiatry & Neurology Psychiatry; Admitting Provider Registered Nurse; Emergency Provider Emergency Medicine; Visit Provider Psychiatry & Neurology Psychiatry
PROC: GZB4ZZZ Other Electroconvulsive Therapy (ICD-10-PCS; CPT 90870; principal; 2025-01-04 14:30)
DX: F33.2 Major depressive disorder, recurrent severe without psychotic features (principal); F05 Delirium due to known physiological condition; F41.1 Generalized anxiety disorder; Z91.51 Personal history of suicidal behavior; Z18.10 Retained metal fragments, unspecified; Z87.820 Personal history of traumatic brain injury; Z79.899 Other long term (current) drug therapy
CPT/HCPCS: 36415; 70450; 80048; 80053; 80061; 80076; 80164; 80307; 81001; 81003; 81025; 82140; 83735; 84702; 85025; 87086; 90870; 93005; 95816; 99285; J0330; J2250; J2405; J7120; S9485

== ENCOUNTER → 2024-12-31 08:55 | Outpatient (BNV) | payer OTHER, SELFPAY | PROVIDERS: Admitting Provider Registered Nurse; Emergency Provider Emergency Medicine; Visit Provider Internal Medicine | DX: F33.2 Major depressive disorder, recurrent severe without psychotic features (principal); F41.9 Anxiety disorder, unspecified | CPT/HCPCS: 93010 ==

== ENCOUNTER 2024-12-31 12:28 | Outpatient (BNV) | payer OTHER, SELFPAY | END 2025-01-27 20:07 | PROVIDERS: Admitting Provider Registered Nurse; Emergency Provider Emergency Medicine; Visit Provider Radiology Diagnostic Radiology | DX: R51.9 Headache, unspecified (principal) | CPT/HCPCS: 70450 ==

== ENCOUNTER 2024-12-31 12:28 | Outpatient (BNV) | payer OTHER, SELFPAY | END 2025-01-04 09:00 | PROVIDERS: Admitting Provider Registered Nurse; Emergency Provider Emergency Medicine; Visit Provider Internal Medicine | DX: R94.31 Abnormal electrocardiogram [ECG] [EKG] (principal); F33.2 Major depressive disorder, recurrent severe without psychotic features | CPT/HCPCS: 93010 ==

== ENCOUNTER → 2024-12-31 12:28 | Outpatient (BNV) | payer OTHER, SELFPAY | PROVIDERS: Admitting Provider Registered Nurse; Emergency Provider Emergency Medicine; Visit Provider Psychiatry & Neurology Psychiatry | DX: F33.2 Major depressive disorder, recurrent severe without psychotic features (principal); F41.9 Anxiety disorder, unspecified | CPT/HCPCS: 99222; 99231; 99232 ==

== ENCOUNTER → 2024-12-31 12:28 | Outpatient (BNV) | payer OTHER, SELFPAY | PROVIDERS: Admitting Provider Registered Nurse; Emergency Provider Emergency Medicine; Visit Provider Psychiatry & Neurology Neurology | DX: G93.45 Developmental and epileptic encephalopathy (principal); Z79.899 Other long term (current) drug therapy; Z18.10 Retained metal fragments, unspecified | CPT/HCPCS: 99222 ==

== ENCOUNTER → 2024-12-31 12:28 | Outpatient (BNV) | payer OTHER, SELFPAY | PROVIDERS: Admitting Provider Registered Nurse; Emergency Provider Emergency Medicine; Visit Provider Student in an Organized Health Care Education/Training Program | DX: Z02.2 Encounter for examination for admission to residential institution (principal) | CPT/HCPCS: 99429 ==

== ENCOUNTER → 2024-12-31 12:28 | Outpatient (BNV) | payer OTHER, SELFPAY | PROVIDERS: Admitting Provider Registered Nurse; Emergency Provider Emergency Medicine; Visit Provider Psychiatry & Neurology Psychiatry | DX: F33.2 Major depressive disorder, recurrent severe without psychotic features (principal) | CPT/HCPCS: 90870 ==